=== PATIENT | male | born 1950 | race Caucasian/White ===

== ENCOUNTER 2018-03-04 11:24 | Inpatient (IN) | payer MEDICARE ==
[2018-03-04 11:37] VITALS: BMI 21.1
--- NOTE | 2018-03-04 12:19 | C.PDOC ---
History Of Present Illness 67 year old male sent to ED for symptomatic anemia by his primary care physician Dr. Ray. He states that his primary care physician did his blood work and found he had low hemoglobin. Patient states he is not feeling well for the past month with association of tiredness and poor appetite. He also reports he has been losing weight and has had several episodes of rectal bleeding. Denies nausea, vomiting, cough. Time Seen by Provider: 03/04/18 12:15 Chief Complaint (Nursing): Medical Clearance History Per: Patient History/Exam Limitations: no limitations Onset/Duration Of Symptoms: Days Current Symptoms Are (Timing): Still Present Recent travel outside of the [place]: No Past Medical History Reviewed: Historical Data, Nursing Documentation, Vital Signs Vital Signs: Last Vital Signs Temp 98.9 F 03/04/18 17:34 Pulse 91 H 03/04/18 17:34 Resp 20 03/04/18 17:34 BP 128/46 L 03/04/18 17:34 Pulse Ox 98 03/04/18 17:34 - Medical History PMH: HTN Surgical History: No Surg Hx Family History: States: No Known Family Hx - Social History Hx Alcohol Use: No Hx Substance Use: No - Immunization History Hx Tetanus Toxoid Vaccination: No Hx Influenza Vaccination: No Hx Pneumococcal Vaccination: No Review Of Systems Except As Marked, All Systems Reviewed And Found Negative. Constitutional: Positive for: Other (tired, poor appetite, losing weight) Respiratory: Negative for: Cough Gastrointestinal: Positive for: Hematochezia (several episodes of rectal bleeding). Negative for: Nausea, Vomiting Neurological: Negative for: Weakness, Numbness Physical Exam - Physical Exam Appears: Non-toxic Skin: Pale Head: Atraumatic, Normacephalic Neck: Supple Chest: Symmetrical Cardiovascular: Rhythm Regular Respiratory: Normal Breath Sounds Gastrointestinal/Abdominal: Soft, No Tenderness Rectal: Heme Positive Neurological/Psych: Oriented x3 Gait: Steady Additional Physical Exam Comments: significant anemic hemoglobin 6.7 ED Course And Treatment - Laboratory Results Result Diagrams: 03/04/18 12:39 03/04/18 12:39 O2 Sat by Pulse Oximetry: 100 (RA) Pulse Ox Interpretation: Normal Progress Note: EKG, labs, and blood for transfusion ordered. Spoke with Dr. Ray and he accepted him for admission. Patient given IV protonix. Blood transfusion started. 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 - Scribe Statement The provider has reviewed the documentation as recorded by the Scribe Howard López All medical record entries made by the Oscar were at my direction and personally dictated by me. I have reviewed the chart and agree that the record accurately reflects my personal performance of the history, physical exam, medical decision making, and the department course for this patient. I have also personally directed, reviewed, and agree with the discharge instructions and disposition. Decision To Admit - Pt Status Changed To: Hospital Disposition Of: Inpatient - Admit Certification Admit to Inpatient:: After my assessment, the patient will require hospitalization for at least two midnights. This is because of the severity of symptoms shown, intensity of services needed, and/or the medical risk in this patient being treated as an outpatient. - InPatient: Physician Admission Certification: I certify that this patient requires 2 or more midnights of care for the following reason:: GI bleed, symptomatic anemia, needs more than 2 days of hospitalization - . Bed Request Type: Regular Admitting Physician: Ryder Ray Patient Diagnosis: Symptomatic anemia, Lower GI bleeding
[2018-03-04 12:46] LABS: BASO % 0.4 % (0.0-2.0); LYMPH # 1.1 K/uL (1.0-4.3); LYMPH % 9.6 % (20.0-40.0); MEAN CORPUSCULAR HEMOGLOBIN 25.5 pg (27.0-31.0); MEAN CORPUSCULAR HGB CONC 32.2 g/dL (33.0-37.0); MEAN PLATELET VOLUME 7.1 fL (7.2-11.7); MONO # 0.8 K/uL (0.0-0.8); MONO % 6.8 % (0.0-10.0); NEUT # 9.4 K/uL (1.8-7.0); NEUT % 83.2 % (50.0-75.0); RBC 2.65 Mil/uL (4.40-5.90); RED CELL DISTRIBUTION WIDTH 18.2 % (11.5-14.5)
[2018-03-04 12:48] LABS: HEMOGLOBIN 6.7 g/dL (12.0-18.0); MEAN CELL VOLUME 79.1 fL (80.0-94.0); PLATELET COUNT 363 K/uL (130-400); WHITE BLOOD COUNT 11.3 K/uL (4.8-10.8)
[2018-03-04 12:55] LABS: INR 1.3; PROTHROMBIN TIME 13.9 SECONDS (9.7-12.2)
[2018-03-04 13:04] LABS: BANDS 2 % (0-2); LYMPHOCYTE 7 % (20-40); MONOCYTE 6 % (0-10); NEUTROPHIL 84 % (50-75); PLATELET ESTIMATE NORMAL (NORMAL); REACTIVE LYMPHOCYTES 1 % (0-0); TOTAL CELLS COUNTED 100
[2018-03-04 13:05] LABS: ANISOCYTOSIS MODERATE; HYPOCHROMIC MODERATE
[2018-03-04 13:12] LABS: SPERM URINE RARE /hpf; URINE BACTERIA RARE (<OCC); URINE BILIRUBIN NEGATIVE (NEGATIVE); URINE BLOOD 1+ (NEGATIVE); URINE CLARITY Hazy (Clear); URINE COLOR Yellow (YELLOW); URINE GLUCOSE (UA) NORMAL (Normal); URINE LEUKOCYTE ESTERASE NEG Leu/uL (Negative); URINE PROTEIN NEGATIVE (NEGATIVE); URINE UROBILINOGEN NORMAL mg/dL (0.2-1.0)
--- NOTE | 2018-03-04 13:22 | RAD ---
Date of service: 03/04/2018 PROCEDURE: CHEST RADIOGRAPH, 1 VIEW HISTORY: anemia COMPARISON: None available. FINDINGS: LUNGS: No acute pulmonary disease appreciated bilaterally. PLEURA: No pneumothorax or pleural fluid seen. CARDIOVASCULAR: Mild cardiomegaly. No pulmonary vascular congestion. OSSEOUS STRUCTURES: No significant abnormalities. VISUALIZED UPPER ABDOMEN: Normal. OTHER FINDINGS: None. IMPRESSION: Mild cardiomegaly without pulmonary vascular congestion. No acute pulmonary disease appreciated bilaterally.
[2018-03-04 13:57] LABS: ALB/GLOB RATIO 0.8 (1.0-2.1); ALT/SGPT 58 U/L (21-72); AST/SGOT 64 U/L (17-59); BLOOD UREA NITROGEN 17 mg/dL (9-20); CALCIUM 8.3 mg/dl (8.6-10.4); GFR AFRICAN-AMERICAN > 60; GFR NON-AFRICAN AMERICAN 55
--- NOTE | 2018-03-04 16:53 | CP.PCM.HP ---
History of Present Illness - History of Present Illness History of Present Illness: 67 years old Cam[place] male was sent to the ED by us because a recent blood test revealed a Hgb: 6.0. The patient has been complaining of a painless rectal bleeding on and off for the past one month, with poor appetite, loss of weight( about 28 lbs for the last one month), generalized weakness. He denies any vomiting blood, any abdominal pain. He is known to have a hypertension, a hypercholesterolemia, an elevated PSA ( seen by Dr Randolph ) and a gout. His last Indomethacin ingestion was 3 years ago. He quit cigarette smoking 15 years ago, and denies abusing alcohol.His medications considted of Amlodipine 10 mg PO qd, Losartan 100mg PO qd, Simvastatin 10 mg PO qd, Ferrous sulfate 325 mg PO TID. His family medical history is unremarkable. He has a left inguinal hernia repair many years ago. He has no known drug allergy. Present on Admission - Present on Admission Any Indicators Present on Admission: No Review of Systems - Constitutional Constitutional: Anorexia, Weight Loss, Weakness - Gastrointestinal Gastrointestinal: Hematochezia - Neurological Neurological: Dizziness - Psychiatric Psychiatric: Anxiety Past Patient History - Past Medical History & Family History Past Medical History?: Yes - Past Social History Smoking Status: Former Smoker Alcohol: None Home Situation {Lives}: With Family Domestic Violence: Negative - CARDIAC Hx Hypercholesterolemia: Yes Hx Hypertension: Yes - HEENT Hx HEENT Problems: Yes 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 - PSYCHIATRIC Hx Substance Use: No - SURGICAL HISTORY Hx Surgeries: Yes Hx Herniorrhaphy: Yes (left) - ANESTHESIA Hx Anesthesia: Yes Hx Anesthesia Reactions: No Meds Allergies/Adverse Reactions: Allergies Allergy/AdvReac Type Severity Reaction Status Date / Time aspirin Allergy Verified 03/04/18 11:37 Physical Exam - Constitutional Appears: In Acute Distress, Chronically Ill - Head Exam Head Exam: NORMAL INSPECTION - Eye Exam Pupil Exam: NORMAL ACCOMODATION Additional comments: Pale conjunctiva. - ENT Exam ENT Exam: Normal Exam - Neck Exam Neck exam: Positive for: Normal Inspection - Respiratory Exam Respiratory Exam: Clear to Auscultation Bilateral, NORMAL BREATHING PATTERN - Cardiovascular Exam Cardiovascular Exam: REGULAR RHYTHM - GI/Abdominal Exam GI & Abdominal Exam: Normal Bowel Sounds, Soft - Rectal Exam Rectal Exam: Deferred - Extremities Exam Extremities exam: Positive for: normal inspection - Back Exam Back exam: NORMAL INSPECTION - Neurological Exam Neurological exam: Alert, CN II-XII Intact, Oriented x3 - Psychiatric Exam Psychiatric exam: Anxious - Skin Skin Exam: Dry, Intact, Normal Color, Warm Results - Vital Signs Recent Vital Signs: Last Vital Signs Temp 99.1 F 03/04/18 16:00 Pulse 94 H 03/04/18 16:00 Resp 19 03/04/18 16:00 BP 122/44 L 03/04/18 16:00 Pulse Ox 100 03/04/18 16:08 - Labs Result Diagrams: 03/04/18 12:39 03/04/18 12:39 Labs: Laboratory Results - last 24 hr 03/04/18 03/04/18 03/04/18 12:39 12:39 12:39 WBC 11.3 H D RBC 2.65 L Hgb 6.7 L D Hct 21.0 L MCV 79.1 L D MCH 25.5 L MCHC 32.2 L RDW 18.2 H Plt Count 363 D MPV 7.1 L Neut % (Auto) 83.2 H Lymph % (Auto) 9.6 L [place] % (Auto) 6.8 Eos % (Auto) 0.0 Baso % (Auto) 0.4 Neut # (Auto) 9.4 H Lymph # (Auto) 1.1 [place] # (Auto) 0.8 Eos # (Auto) 0.0 Baso # (Auto) 0.0 Neutrophils % (Manual) 84 H Band Neutrophils % 2 Lymphocytes % (Manual) 7 L Reactive Lymphs % 1 H Monocytes % (Manual) 6 Platelet Estimate Normal Hypochromasia (manual) Moderate Anisocytosis (manual) Moderate PT 13.9 H INR 1.3 APTT 30 Sodium Potassium Chloride Carbon Dioxide Anion Gap BUN Creatinine Est GFR ( Amer) Est GFR (Non-Af Amer) Random Glucose Calcium Total Bilirubin AST ALT Alkaline Phosphatase Total Protein Albumin Globulin Albumin/Globulin Ratio Urine Color Urine Clarity Urine pH Ur Specific [place] Urine Protein Urine Glucose (UA) Urine Ketones Urine Blood Urine Nitrate Urine Bilirubin Urine Urobilinogen Ur Leukocyte Esterase Urine WBC (Auto) Urine RBC (Auto) Urine Bacteria Urine Sperm (Auto) Stool Occult Blood Positive H Blood Type Antibody Screen 03/04/18 03/04/18 03/04/18 12:39 12:39 12:53 WBC RBC Hgb Hct MCV MCH MCHC RDW Plt Count MPV Neut % (Auto) Lymph % (Auto) [place] % (Auto) Eos % (Auto) Baso % (Auto) Neut # (Auto) Lymph # (Auto) [place] # (Auto) Eos # (Auto) Baso # (Auto) Neutrophils % (Manual) Band Neutrophils % Lymphocytes % (Manual) Reactive Lymphs % Monocytes % (Manual) Platelet Estimate Hypochromasia (manual) Anisocytosis (manual) PT INR APTT Sodium 127 L Potassium 4.0 Chloride 95 L Carbon Dioxide 18 L Anion Gap 18 BUN 17 Creatinine 1.3 Est GFR ( Amer) > 60 Est GFR (Non-Af Amer) 55 Random Glucose 151 H Calcium 8.3 L Total Bilirubin 0.5 AST 64 H ALT 58 Alkaline Phosphatase 128 H Total Protein 7.1 Albumin 3.0 L D Globulin 4.1 H Albumin/Globulin Ratio 0.8 L Urine Color Yellow Urine Clarity Hazy Urine pH 5.0 Ur Specific [place] 1.011 Urine Protein Negative Urine Glucose (UA) Normal Urine Ketones Negative Urine Blood 1+ H Urine Nitrate Negative Urine Bilirubin Negative Urine Urobilinogen Normal Ur Leukocyte Esterase Neg Urine WBC (Auto) 7 H Urine RBC (Auto) 2 Urine Bacteria Rare Urine Sperm (Auto) Rare H Stool Occult Blood Blood Type O POSITIVE Antibody Screen Negative Assessment & Plan (1) Lower GI bleeding Assessment and Plan: For a colonoscopy by Dr Perez. Status: Acute (2) Symptomatic anemia Assessment and Plan: Blood transfusion to a hemoglobin about 9-10. Status: Acute (3) Hypertension Status: Chronic Decision To Admit - Pt Status Changed To: Hospital Disposition Of: Inpatient - Admit Certification Admit to Inpatient:: After my assessment, the patient will require hospitalization for at least two midnights. This is because of the severity of symptoms shown, intensity of services needed, and/or the medical risk in this patient being treated as an outpatient. - InPatient: Physician Admission Certification:: After my assessments, the patient requires hospitalization for at least 2 midnights. - . Bed Request Type: Regular Admitting Physician: Ryder Ray
--- NOTE | 2018-03-04 17:43 | CP.PCM.CON ---
History of Present Illness - History of Present Illness History of Present Illness: This is a 67 year ld man with anemia. Patient has complained of weakness for the past two months. He was diagnosed with GERD earlier in the year and was treated with omeprazole with good results. He also reports a weight loss of 10 pounds in the past month. Starting four months ago, be noted blood in the bowel movements every day. He denies having diarrhea. He denies having nausea, vomiting,anorexia and dysphagia. Recent HGB on 02/03/2018 was 7.6, HCT 25.4. Repeat blood tests by Dr. Ray showed that the HGB dropped to 6.0, and the patient was instructed to go to the ER. In the ER, the HGB was 6.7, and he was admitted.. Review of Systems - Constitutional Constitutional: Anorexia, Fatigue, Weight Loss, Weakness - Respiratory Respiratory: absent: Cough - Gastrointestinal Gastrointestinal: Hematochezia. absent: Abdominal Pain, Constipation, Diarrhea , Dysphagia, Heartburn, Nausea, Vomiting - Neurological Neurological: Dizziness. 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 - PSYCHIATRIC Hx Substance Use: No - SURGICAL HISTORY Hx Surgeries: Yes Hx Herniorrhaphy: Yes (left) - ANESTHESIA Hx Anesthesia: Yes Hx Anesthesia Reactions: No Meds Allergies/Adverse Reactions: Allergies Allergy/AdvReac Type Severity Reaction Status Date / Time aspirin Allergy Verified 03/04/18 11:37 - Medications Medications: Current Medications Amlodipine Besylate (Norvasc) 10 mg PO DAILY [facility] Losartan Potassium (Cozaar) 100 mg PO DAILY [facility] Pantoprazole Sodium (Protonix Ec Tab) 40 mg PO DAILY [facility] Physical Exam - Constitutional Appears: No Acute Distress - Head Exam Head Exam: ATRAUMATIC - Eye Exam Eye Exam: EOMI, PERRL - Neck Exam Neck exam: Negative for: Lymphadenopathy, Thyromegaly - Respiratory Exam Respiratory Exam: NORMAL BREATHING PATTERN. absent: Rales, Rhonchi, Wheezes - Cardiovascular Exam Cardiovascular Exam: REGULAR RHYTHM, +S1, +S2. absent: Gallop, Rubs - GI/Abdominal Exam GI & Abdominal Exam: Normal Bowel Sounds, Soft. absent: Mass, Organomegaly, Tenderness - Rectal Exam Rectal Exam: Deferred - Extremities Exam Extremities exam: Negative for: calf tenderness, pedal edema Results - Vital Signs Recent Vital Signs: Last Vital Signs Temp 98.9 F 03/04/18 17:34 Pulse 91 H 03/04/18 17:34 Resp 20 03/04/18 17:34 BP 128/46 L 03/04/18 17:34 Pulse Ox 98 03/04/18 17:34 - Labs Result Diagrams: 03/04/18 12:39 03/04/18 12:39 Labs: Laboratory Results - last 24 hr 03/04/18 03/04/18 03/04/18 12:39 12:39 12:39 WBC 11.3 H D RBC 2.65 L Hgb 6.7 L D Hct 21.0 L MCV 79.1 L D MCH 25.5 L MCHC 32.2 L RDW 18.2 H Plt Count 363 D MPV 7.1 L Neut % (Auto) 83.2 H Lymph % (Auto) 9.6 L [place] % (Auto) 6.8 Eos % (Auto) 0.0 Baso % (Auto) 0.4 Neut # (Auto) 9.4 H Lymph # (Auto) 1.1 [place] # (Auto) 0.8 Eos # (Auto) 0.0 Baso # (Auto) 0.0 Neutrophils % (Manual) 84 H Band Neutrophils % 2 Lymphocytes % (Manual) 7 L Reactive Lymphs % 1 H Monocytes % (Manual) 6 Platelet Estimate Normal Hypochromasia (manual) Moderate Anisocytosis (manual) Moderate PT 13.9 H INR 1.3 APTT 30 Sodium Potassium Chloride Carbon Dioxide Anion Gap BUN Creatinine Est GFR ( Amer) Est GFR (Non-Af Amer) Random Glucose Calcium Total Bilirubin AST ALT Alkaline Phosphatase Total Protein Albumin Globulin Albumin/Globulin Ratio Urine Color Urine Clarity Urine pH Ur Specific [place] Urine Protein Urine Glucose (UA) Urine Ketones Urine Blood Urine Nitrate Urine Bilirubin Urine Urobilinogen Ur Leukocyte Esterase Urine WBC (Auto) Urine RBC (Auto) Urine Bacteria Urine Sperm (Auto) Stool Occult Blood Positive H Blood Type Antibody Screen 03/04/18 03/04/18 03/04/18 12:39 12:39 12:53 WBC RBC Hgb Hct MCV MCH MCHC RDW Plt Count MPV Neut % (Auto) Lymph % (Auto) [place] % (Auto) Eos % (Auto) Baso % (Auto) Neut # (Auto) Lymph # (Auto) [place] # (Auto) Eos # (Auto) Baso # (Auto) Neutrophils % (Manual) Band Neutrophils % Lymphocytes % (Manual) Reactive Lymphs % Monocytes % (Manual) Platelet Estimate Hypochromasia (manual) Anisocytosis (manual) PT INR APTT Sodium 127 L Potassium 4.0 Chloride 95 L Carbon Dioxide 18 L Anion Gap 18 BUN 17 Creatinine 1.3 Est GFR ( Amer) > 60 Est GFR (Non-Af Amer) 55 Random Glucose 151 H Calcium 8.3 L Total Bilirubin 0.5 AST 64 H ALT 58 Alkaline Phosphatase 128 H Total Protein 7.1 Albumin 3.0 L D Globulin 4.1 H Albumin/Globulin Ratio 0.8 L Urine Color Yellow Urine Clarity Hazy Urine pH 5.0 Ur Specific [place] 1.011 Urine Protein Negative Urine Glucose (UA) Normal Urine Ketones Negative Urine Blood 1+ H Urine Nitrate Negative Urine Bilirubin Negative Urine Urobilinogen Normal Ur Leukocyte Esterase Neg Urine WBC (Auto) 7 H Urine RBC (Auto) 2 Urine Bacteria Rare Urine Sperm (Auto) Rare H Stool Occult Blood Blood Type O POSITIVE Antibody Screen Negative Assessment & Plan (1) Symptomatic anemia Assessment and Plan: Anemia is probably due to iron deficiency, in turn related to chronic rectal bleeding. Will check iron, B12 and folate levels. Will prep for colonoscopy and will schedule EGD and colonoscopy for tomorrow. Status: Acute
[2018-03-04] MEDS ORDERED: Peg-Electrolyte Oral Soln 4L (Golytely) PO ONE (18:00)
[2018-03-04 20:33] LABS: IRON 29 ug/dL (49-181)
[2018-03-04 20:42] LABS: % IRON SATURATION 13 (20-55); TOTAL IRON BINDING CAPACITY 233 ug/dL (250-450)
[2018-03-04 21:07] LABS: FERRITIN 23.7 ng/mL
[2018-03-04 21:38] LABS: FOLATE 10.5 ng/mL
[2018-03-05] MEDS ORDERED: Peg-Electrolyte Oral Soln 4L (Golytely) PO ONE (06:00)
[2018-03-05 07:44] LABS: BASO % 0.3 % (0.0-2.0); HEMOGLOBIN 7.5 g/dL (12.0-18.0); LYMPH # 1.1 K/uL (1.0-4.3); LYMPH % 10.3 % (20.0-40.0); MEAN CELL VOLUME 78.6 fL (80.0-94.0); MEAN CORPUSCULAR HEMOGLOBIN 25.6 pg (27.0-31.0); MEAN CORPUSCULAR HGB CONC 32.5 g/dL (33.0-37.0); MEAN PLATELET VOLUME 6.9 fL (7.2-11.7); MONO # 0.9 K/uL (0.0-0.8); NEUT # 8.8 K/uL (1.8-7.0); NEUT % 81.4 % (50.0-75.0); RBC 2.93 Mil/uL (4.40-5.90); RED CELL DISTRIBUTION WIDTH 17.9 % (11.5-14.5); WHITE BLOOD COUNT 10.8 K/uL (4.8-10.8)
[2018-03-05 08:12] LABS: ALB/GLOB RATIO 0.7 (1.0-2.1); ALBUMIN 2.7 g/dL (3.5-5.0); ALT/SGPT 54 U/L (21-72); AST/SGOT 68 U/L (17-59); BLOOD UREA NITROGEN 17 mg/dL (9-20); CALCIUM 8.1 mg/dl (8.6-10.4); GFR AFRICAN-AMERICAN > 60; GFR NON-AFRICAN AMERICAN > 60
[2018-03-05] MEDS: Pantoprazole 40 mg EC Tab PO SCH (09:50)
[2018-03-05] MEDS ORDERED: Etomidate 20 mg/10ml Inj IV ONE (14:44)
[2018-03-05] MEDS ORDERED: Propofol 10 mg/ml Inj (20 ML) ONE (14:45)
[2018-03-05] MEDS ORDERED: Lactated Ringer's 1,000 ML IV ONE (14:55)
--- NOTE | 2018-03-05 15:37 | CARD ---
APPROVED REPORT Date of service: 03/04/2018 EKG Measurement Heart [id number] <Conclusion> Normal sinus rhythm Nonspecific ST abnormality Abnormal ECG
[2018-03-05] MEDS ORDERED: Sodium Chloride 0.9% 500 ML IV ONE (15:53)
--- NOTE | 2018-03-05 19:35 | CP.PCM.CON ---
History of Present Illness - History of Present Illness History of Present Illness: 67 years old [place] male was sent to the ED by PMD, because a recent blood test revealed a Hgb: 6.0. The patient has been complaining of a painless rectal bleeding on and off for the past one month, with poor appetite, loss of weight( about 28 lbs for the last one month), generalized weakness. He denies any vomiting blood, any abdominal pain. The patient reports getting stool for OB tested at his work place, annually, which was normal, but stopped around 5 years ago, after he retired.He is known to have a hypertension, a hypercholesterolemia, an elevated PSA, being followed by , and gout. His last Indomethacin ingestion was 3 years ago. He quit cigarette smoking 15 years ago, and denies abusing alcohol.His medications are Amlodipine 10 mg PO qd, Losartan 100mg PO qd, Simvastatin 10 mg PO qd, Ferrous sulfate 325 mg PO TID. His family medical history is unremarkable. He has a left inguinal hernia repair many years ago. Oncology consult called after colonoscopy revealed a rectal mass, biopsy pending. 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 - GENITOURINARY/GYNECOLOGICAL Hx Genitourinary Disorders: No - PSYCHIATRIC Hx Substance Use: No - SURGICAL HISTORY Hx Surgeries: Yes Hx Herniorrhaphy: Yes (left) - ANESTHESIA Hx Anesthesia: Yes Hx Anesthesia Reactions: No Meds Allergies/Adverse Reactions: Allergies Allergy/AdvReac Type Severity Reaction Status Date / Time aspirin Allergy Verified 03/04/18 11:37 - Medications Medications: Current Medications Amlodipine Besylate (Norvasc) 10 mg PO DAILY ANIYAH Last Admin: 03/05/18 09:50 Dose: 10 mg Ferric Sodium Gluconate Complex (Ferrlecit) 125 mg IVPB DAILY [facility] Stop: 03/14/18 10:01 Losartan Potassium (Cozaar) 100 mg PO DAILY [facility] Last Admin: 03/05/18 09:50 Dose: 100 mg Pantoprazole Sodium (Protonix Ec Tab) 40 mg PO DAILY [facility] Last Admin: 03/05/18 09:50 Dose: 40 mg Pneumococcal Polyvalent Vaccine (Pneumovax 23 Vaccine) 0.5 ml IM .ONCE ONE Stop: 03/06/18 10:01 Results - Vital Signs Recent Vital Signs: Last Vital Signs Temp 97.9 F 03/05/18 18:33 Pulse 90 03/05/18 18:33 Resp 20 03/05/18 18:33 BP 120/44 L 03/05/18 18:33 Pulse Ox 97 03/05/18 16:25 - Labs Result Diagrams: 03/05/18 07:34 03/05/18 07:34 Labs: Laboratory Results - last 24 hr 03/04/18 03/04/18 03/04/18 12:39 20:00 20:00 WBC RBC Hgb Hct MCV MCH MCHC RDW Plt Count MPV Neut % (Auto) Lymph % (Auto) [place] % (Auto) Eos % (Auto) Baso % (Auto) Neut # (Auto) Lymph # (Auto) [place] # (Auto) Eos # (Auto) Baso # (Auto) Retic Count 2.7 H Sodium Potassium Chloride Carbon Dioxide Anion Gap BUN Creatinine Est GFR ( Amer) Est GFR (Non-Af Amer) Random Glucose Calcium Iron 29 L TIBC 233 L % Saturation 13 L Ferritin Total Bilirubin AST ALT Alkaline Phosphatase Total Protein Albumin Globulin Albumin/Globulin Ratio Carcinoembryonic Ag Prostate Specific Ag Vitamin B12 Folate Blood Type O POSITIVE Antibody Screen Negative 03/04/18 03/05/18 03/05/18 20:00 07:34 07:34 WBC 10.8 RBC 2.93 L Hgb 7.5 L Hct 23.0 L MCV 78.6 L MCH 25.6 L MCHC 32.5 L RDW 17.9 H Plt Count 325 MPV 6.9 L Neut % (Auto) 81.4 H Lymph % (Auto) 10.3 L [place] % (Auto) 8.0 Eos % (Auto) 0.0 Baso % (Auto) 0.3 Neut # (Auto) 8.8 H Lymph # (Auto) 1.1 [place] # (Auto) 0.9 H Eos # (Auto) 0.0 Baso # (Auto) 0.0 Retic Count Sodium 131 L Potassium 4.1 Chloride 100 Carbon Dioxide 22 Anion Gap 13 BUN 17 Creatinine 1.2 Est GFR ( Amer) > 60 Est GFR (Non-Af Amer) > 60 Random Glucose 122 H Calcium 8.1 L Iron TIBC % Saturation Ferritin 23.7 Total Bilirubin 0.6 AST 68 H ALT 54 Alkaline Phosphatase 115 Total Protein 6.3 Albumin 2.7 L Globulin 3.6 Albumin/Globulin Ratio 0.7 L Carcinoembryonic Ag 11.8 H Prostate Specific Ag 5.56 H Vitamin B12 464 Folate 10.5 Blood Type Antibody Screen Assessment & Plan (1) Mass in rectum Assessment and Plan: 67 yo man with rectal mass, iron deficiency anemia, elevated CEA level, cocern for rectal neoplasm. Will get CAT scans, above discussed with the patient and the family. Status: Acute
--- NOTE | 2018-03-05 23:28 | CP.PCM.PN ---
Subjective - Date & Time of Evaluation Date of Evaluation: 03/05/18 Time of Evaluation: 20:00 - Subjective Subjective: Colonoscopy revealed a mass of the rectum. Biopsy taken. CEA elevated. Patient being evaluated by Dr Rivera. Ct scan of the abdomen and pelvis ordered. Objective - Vital Signs/Intake and Output Vital Signs (last 24 hours): Temp Pulse Resp BP Pulse Ox 99.1 F 80 18 119/42 L 96 03/05/18 22:12 03/05/18 22:12 03/05/18 22:12 03/05/18 22:12 03/05/18 22:12 Intake and Output: 03/05/18 03/06/18 18:59 06:59 Intake Total 1325 905 Balance 1325 905 - Medications Medications: Current Medications Amlodipine Besylate (Norvasc) 10 mg PO DAILY [facility] Last Admin: 03/05/18 09:50 Dose: 10 mg Ferric Sodium Gluconate Complex (Ferrlecit) 125 mg IVPB DAILY [facility] Stop: 03/14/18 10:01 Losartan Potassium (Cozaar) 100 mg PO DAILY [facility] Last Admin: 03/05/18 09:50 Dose: 100 mg Pantoprazole Sodium (Protonix Ec Tab) 40 mg PO DAILY [facility] Last Admin: 03/05/18 09:50 Dose: 40 mg Pneumococcal Polyvalent Vaccine (Pneumovax 23 Vaccine) 0.5 ml IM .ONCE ONE Stop: 03/06/18 10:01 - Labs Labs: 03/05/18 07:34 03/05/18 07:34 PT 13.9 SECONDS (9.7-12.2) H 03/04/18 12:39 INR 1.3 03/04/18 12:39 APTT 30 SECONDS (21-34) 03/04/18 12:39 - Constitutional Appears: No Acute Distress, Chronically Ill - Head Exam Head Exam: NORMOCEPHALIC - Eye Exam Eye Exam: Normal appearance Pupil Exam: NORMAL ACCOMODATION - ENT Exam ENT Exam: Normal Exam - Neck Exam Neck Exam: Normal Inspection - Respiratory Exam Respiratory Exam: Clear to Ausculation Bilateral - Cardiovascular Exam Cardiovascular Exam: REGULAR RHYTHM - GI/Abdominal Exam GI & Abdominal Exam: Soft, Normal Bowel Sounds - Rectal Exam Rectal Exam: Deferred - Exam Exam: NORMAL INSPECTION - Extremities Exam Extremities Exam: Normal Inspection - Back Exam Back Exam: NORMAL INSPECTION - Neurological Exam Neurological Exam: Alert, Awake, Oriented x3 - Psychiatric Exam Psychiatric exam: Anxious - Skin Skin Exam: Dry, Intact, Warm Assessment and Plan (1) Lower GI bleeding Assessment & Plan: Colonoscopy reveals a rectal mass. Awaiting biopsy result. Ct scan of the abdomen and pelvis ordered. Status: Acute (2) Symptomatic anemia Assessment & Plan: PRC transfusion. Status: Acute (3) Hypertension Status: Chronic
[2018-03-05 23:57] VITALS: RESP 20
[2018-03-06 07:40] LABS: MCH 25.5 pg (27.0-33.0); MCV 84.2 fL (80.0-100.0)
[2018-03-06] MEDS ORDERED: Iohexol 240 (50 ml) PO ONE (08:00)
[2018-03-06 08:06] LABS: BASO # 0.1 K/uL (0.0-0.2); BASO % 0.7 % (0.0-2.0); LYMPH # 1.2 K/uL (1.0-4.3); MEAN CORPUSCULAR HEMOGLOBIN 26.5 pg (27.0-31.0); MEAN CORPUSCULAR HGB CONC 32.8 g/dL (33.0-37.0); MEAN PLATELET VOLUME 7.3 fL (7.2-11.7); MONO # 0.8 K/uL (0.0-0.8); MONO % 5.9 % (0.0-10.0); NEUT % 84.4 % (50.0-75.0); NRBC % 0.1 % (0.0-2.0); PLATELET COUNT 288 K/uL (130-400); RBC 3.75 Mil/uL (4.40-5.90); RED CELL DISTRIBUTION WIDTH 17.8 % (11.5-14.5)
[2018-03-06 08:14] LABS: HEMOGLOBIN 9.9 g/dL (12.0-18.0); MEAN CELL VOLUME 80.7 fL (80.0-94.0)
[2018-03-06 08:37] LABS: ALB/GLOB RATIO 0.8 (1.0-2.1); ALBUMIN 2.7 g/dL (3.5-5.0); ALT/SGPT 43 U/L (21-72); AST/SGOT 40 U/L (17-59); BLOOD UREA NITROGEN 15 mg/dL (9-20); CALCIUM 8.1 mg/dl (8.6-10.4); GFR AFRICAN-AMERICAN > 60; GFR NON-AFRICAN AMERICAN 55
[2018-03-06 08:48] LABS: ANISOCYTOSIS SLIGHT; BANDS 5 % (0-2); HYPOCHROMIC SLIGHT; LYMPHOCYTE 8 % (20-40); MONOCYTE 7 % (0-10); NEUTROPHIL 80 % (50-75); OVALOCYTES SLIGHT; PLATELET ESTIMATE NORMAL (NORMAL); TOTAL CELLS COUNTED 100; TOXIC GRANULATION PRESENT
[2018-03-06] MEDS: Pantoprazole 40 mg EC Tab PO SCH (09:20)
[2018-03-06] MEDS: Ferric Sodium Gluconat Complex 62.5 mg/5 ml Vial IVPB SCH (09:20)
[2018-03-06] MEDS ORDERED: Pneumococcal 23-Valent Vaccine IM ONE (10:00)
[2018-03-06] MEDS ORDERED: Iodixanol 320 MG/ML 100 ML BOTTLE IV ONE (11:48)
--- NOTE | 2018-03-06 15:38 | CT ---
Date of service: 03/06/2018 PROCEDURE: CT Chest, Abdomen and Pelvis with intravenous contrast HISTORY: anemia, rectal mass, r/o mets COMPARISON: CT abdomen and pelvis August 05 2015 -noncontrast. TECHNIQUE: IV dose administered: 100 mL of Visipaque 320 ; Omnipaque 240 Radiation dose: Total exam DLP = 561 mGy-cm. This CT exam was performed using one or more of the following dose reduction techniques: Automated exposure control, adjustment of the mA and/or kV according to patient size, and/or use of iterative reconstruction technique. FINDINGS: CT CHEST WITH CONTRAST: LUNGS: Left posterior tendon lower lobe subpleural minimal thickening trace similar findings on the right also noted. No nodule, mass or consolidation. A bilobed versus 2 contiguous smaller nodules border the right major fissure at the spencer level in the superior segment of the right lower lobe (axis series 4, image 40). The larger part of this bilobed appearance is 4 mm, the smaller nodular component may even represent even a coursing vessel seen on end. Two distinct entities, in close proximity with each other is favored over a single bilobed perifissural nodule. Given its proximity with the pleural surface-inflammatory nodule or even a perifissural pulmonary lymphatic nodule is a consideration. Given history of rectal mass - metastatic lesion is not excluded - a short-term follow-up imaging study to ensure stability and or document resolution is recommended. No other nodules noted MEDIASTINUM: Unremarkable. Normal caliber aorta and pulmonary arterial trunk. No aortic dissection. Normal size heart. LYMPH NODES: Unremarkable. PLEURA: . No pneumothorax. No pleural fluid. Minimal and mild posterior pleural thickening as referenced in the lung section BONES: Unremarkable. OTHER FINDINGS: None. CT ABDOMEN AND PELVIS: LIVER: Prior study was noncontrast enhanced comparison has resolved is problematic. There are at least 3 hypodensities individually these are approximately 2 mm in size in the right hepatic lobe at the dome (current axial series 6, image 33). These are not seen on the prior study this level. On current axial series 6, image 44, an approximately 6 mm hypodensity in the posterior segment right hepatic lobe is present and similar in appearance with 08/05/2015 image of it. This length of stability supports benign etiology Tiny left hepatic lobe hypodensities -approximately 1 mm each -2 are perceived on axial series 6, image 39 in these are difficult to see on the prior non contrast enhanced study the current conspicuity could be due to the postcontrast enhanced status. However the chronicity is unknown. Another hypodensity 1 mm anteriorly is anterior to the left portal vein branch on current axial series 6, image 42 is seen and on the same image of further left lateral hepatic lobe hypodensity 2 mm in size is noted both of these entities are not seen with certainty on the prior study again the conspicuity could be attributed to postcontrast enhanced status. Again their chronicity is unknown. On current axial series 6, image 57 there are 2 1 mm hypodensity seen-not appreciated such on the prior study their chronicity is unknown. The inferior right hepatic lobe 6 mm hypodensity on current axial series 6, image 71 is stable in appearance since 2016 compatible with benign etiology. No gross ductal dilatation. GALLBLADDER AND BILE DUCTS: Unremarkable. PANCREAS: Unremarkable. No gross lesion or ductal dilatation. SPLEEN: Unremarkable. ADRENALS: The mild nodular prominence to the left adrenal limbs is similar to 2016 compatible with benign etiology. No interval worrisome adrenal changes suggested. This minimal nodular prominence to an inferior right adrenal limb -similar since 2016 compatible with benign etiology. KIDNEYS AND URETERS: Unremarkable. No hydronephrosis. No suspicious mass appreciated VASCULATURE: Vascular calcifications present. . No aortic aneurysm. BOWEL: No bowel obstruction. However there is interval thickening of the rectal wall circumferential compared the prior study neoplastic as well as inflammatory etiologies are compatible with this. Correlation with any biopsy here is recommended Some trace stranding of the surrounding fat noted. APPENDIX: Normal appendix. PERITONEUM: Trace amount of fluid borders the inferolateral this is an interval change. . No free air. LYMPH NODES: Unremarkable. No enlarged lymph nodes. BLADDER: Moderate distension with circumferential bladder wall thickening to before. Chronic cystitis is 1 consideration. REPRODUCTIVE: Prominent prostate similar and or slightly increased since the prior exam. Correlate with a PSA and digital exam BONES: No acute fracture. OTHER FINDINGS: None. IMPRESSION: Interval circumferential rectal wall mural thickening - history states rectal mass -correlate clinically with any tissue sampling performed. Rectal neoplasia versus inflammatory changes are compatible with this. No suspect lymphadenopathy appreciated Small amount of ascites bordering the liver Enlarged prostate- correlate with PSA. Bladder wall thickening can similar in appearance can be seen with hypertrophy. Chronic cystitis another consideration. Other etiologies not excluded. No eccentric mural masses appreciated The right perifissural sub cm nodules-bilobed in appearance are indeterminate- benign etiologies are favored. Consider follow-up CT chest imaging in 3- 6 months to reassess Bilateral tiny sub cm hepatic hypodense lesions all of which are not identified on 2016 images (in non IV contrast enhanced image). Chronicity unknown. Recommend short-term follow-up imaging assess their stability with contrast enhancement. The largest ones noted on the current study are seen and stable as such dating back to 2016. Continued surveillance recommended. Stable since 2016 benign-appearing adrenal nodular hyperplasia status.
--- NOTE | 2018-03-06 18:45 | CP.PCM.PN ---
Subjective - Date & Time of Evaluation Date of Evaluation: 03/06/18 Time of Evaluation: 18:41 - Subjective Subjective: The patient reports feeling slightly better, ambulatory, fair appetite. Have discussed report of rectal biopsy and CAT scans with the patient and daughter. Plan- CAT/PET scan as outpatient, may need rectal US or pelvic MRI if local staging not adequate with the PET scan. Most likely, will need local RT prior to surgery. Objective - Vital Signs/Intake and Output Vital Signs (last 24 hours): Temp Pulse Resp BP Pulse Ox 98 F 96 H 20 134/53 L 97 03/06/18 15:50 03/06/18 15:50 03/06/18 15:50 03/06/18 15:50 03/06/18 15:50 Intake and Output: 03/06/18 03/06/18 06:59 18:59 Intake Total 905 1600 Balance 905 1600 - Medications Medications: Current Medications Amlodipine Besylate (Norvasc) 10 mg PO DAILY [facility] Last Admin: 03/06/18 09:20 Dose: 10 mg Ferric Sodium Gluconate Complex (Ferrlecit) 125 mg IVPB DAILY [facility] Stop: 03/14/18 10:01 Last Admin: 03/06/18 09:20 Dose: 125 mg Losartan Potassium (Cozaar) 100 mg PO DAILY [facility] Last Admin: 03/06/18 09:20 Dose: 100 mg Pantoprazole Sodium (Protonix Ec Tab) 40 mg PO DAILY [facility] Last Admin: 03/06/18 09:20 Dose: 40 mg - Labs Labs: 03/06/18 07:48 03/06/18 07:48 PT 13.9 SECONDS (9.7-12.2) H 03/04/18 12:39 INR 1.3 03/04/18 12:39 APTT 30 SECONDS (21-34) 03/04/18 12:39 Assessment and Plan (1) Mass in rectum Status: Acute
[2018-03-07 07:44] LABS: BASO % 0.4 % (0.0-2.0); HEMOGLOBIN 9.4 g/dL (12.0-18.0); LYMPH # 1.1 K/uL (1.0-4.3); MEAN CELL VOLUME 80.8 fL (80.0-94.0); MEAN CORPUSCULAR HEMOGLOBIN 27.3 pg (27.0-31.0); MEAN CORPUSCULAR HGB CONC 33.7 g/dL (33.0-37.0); MONO # 0.8 K/uL (0.0-0.8); NEUT # 9.2 K/uL (1.8-7.0); NEUT % 82.6 % (50.0-75.0); RBC 3.46 Mil/uL (4.40-5.90); RED CELL DISTRIBUTION WIDTH 17.4 % (11.5-14.5); WHITE BLOOD COUNT 11.2 K/uL (4.8-10.8)
[2018-03-07 07:53] LABS: ALB/GLOB RATIO 0.8 (1.0-2.1); ALBUMIN 2.4 g/dL (3.5-5.0); ALT/SGPT 33 U/L (21-72); AST/SGOT 19 U/L (17-59); BLOOD UREA NITROGEN 10 mg/dL (9-20); GFR AFRICAN-AMERICAN > 60; GFR NON-AFRICAN AMERICAN > 60
--- NOTE | 2018-03-07 07:54 | CP.PCM.PN ---
Subjective - Date & Time of Evaluation Date of Evaluation: 03/07/18 Time of Evaluation: 07:51 - Subjective Subjective: Patient denies having nausea, vomiting, abdominal pain. HGB is up to 9.4. Objective - Vital Signs/Intake and Output Vital Signs (last 24 hours): Temp Pulse Resp BP Pulse Ox 102.7 F H 97 H 20 114/46 L 96 03/06/18 23:10 03/07/18 07:00 03/06/18 23:10 03/06/18 23:10 03/06/18 23:10 - Medications Medications: Current Medications Amlodipine Besylate (Norvasc) 10 mg PO DAILY [facility] Last Admin: 03/06/18 09:20 Dose: 10 mg Ferric Sodium Gluconate Complex (Ferrlecit) 125 mg IVPB DAILY [facility] Stop: 03/14/18 10:01 Last Admin: 03/06/18 09:20 Dose: 125 mg Losartan Potassium (Cozaar) 100 mg PO DAILY [facility] Last Admin: 03/06/18 09:20 Dose: 100 mg Pantoprazole Sodium (Protonix Ec Tab) 40 mg PO DAILY [facility] Last Admin: 03/06/18 09:20 Dose: 40 mg - Labs Labs: 03/07/18 07:33 03/06/18 07:48 PT 13.9 SECONDS (9.7-12.2) H 03/04/18 12:39 INR 1.3 03/04/18 12:39 APTT 30 SECONDS (21-34) 03/04/18 12:39 - Constitutional Appears: No Acute Distress - Eye Exam Eye Exam: EOMI, PERRL - Neck Exam Neck Exam: absent: Lymphadenopathy, Thyromegaly - Respiratory Exam Respiratory Exam: NORMAL BREATHING PATTERN. absent: Rales, Rhonchi, Wheezes - Cardiovascular Exam Cardiovascular Exam: REGULAR RHYTHM, +S1, +S2. absent: Gallop, Rubs, Murmur - GI/Abdominal Exam GI & Abdominal Exam: Soft, Normal Bowel Sounds. absent: Tenderness, Mass, Organomegaly - Rectal Exam Rectal Exam: Deferred - Extremities Exam Extremities Exam: absent: Calf Tenderness, Pedal Edema Assessment and Plan (1) Symptomatic anemia Assessment & Plan: Anemia is due to carcinoma of rectum. Patient has been evaluated by the oncologist, Dr. Rivera, and arrangements will be made for treatment. Patient should have surveillance colonoscopy in one year. Will sign off. Status: Acute
[2018-03-07 08:46] VITALS: BP 129/56; PULSE 87; TEMP 97.2; O2SAT 99
[2018-03-07] MEDS: Ferric Sodium Gluconat Complex 62.5 mg/5 ml Vial IVPB SCH (09:15)
[2018-03-07] MEDS: Pantoprazole 40 mg EC Tab PO SCH (09:15)
--- NOTE | 2018-03-07 13:00 | CP.PCM.PN ---
Subjective - Date & Time of Evaluation Date of Evaluation: 03/07/18 Time of Evaluation: 13:00 - Subjective Subjective: PATIENT WAS ADMITTED FOR SYMPTOMATIC ANEMIA AND LOWER GI BLEEDING AAOX3 / DENIES CHEST PAIN / SOB / NAUSEA OR VOMITING / BLOODY STOOL Objective - Vital Signs/Intake and Output Vital Signs (last 24 hours): Temp Pulse Resp BP Pulse Ox 97.2 F L 87 20 129/56 L 99 03/07/18 08:00 03/07/18 08:00 03/07/18 08:00 03/07/18 08:00 03/07/18 08:00 - Medications Medications: Current Medications Amlodipine Besylate (Norvasc) 10 mg PO DAILY [facility] Last Admin: 03/07/18 09:15 Dose: 10 mg Ferric Sodium Gluconate Complex (Ferrlecit) 125 mg IVPB DAILY [facility] Stop: 03/14/18 10:01 Last Admin: 03/07/18 09:15 Dose: 125 mg Losartan Potassium (Cozaar) 100 mg PO DAILY [facility] Last Admin: 03/07/18 09:15 Dose: 100 mg Pantoprazole Sodium (Protonix Ec Tab) 40 mg PO DAILY [facility] Last Admin: 03/07/18 09:15 Dose: 40 mg - Labs Labs: 03/07/18 07:33 03/07/18 07:33 PT 13.9 SECONDS (9.7-12.2) H 03/04/18 12:39 INR 1.3 03/04/18 12:39 APTT 30 SECONDS (21-34) 03/04/18 12:39 Assessment and Plan - Assessment and Plan (Free Text) Assessment: PATIENT SEEN AND EXAMINED AT THE [facility] POST COLONOSCOPY SHOW RECTAL MASS / BLEEDING STOP / BLOOD TRANSFUSION / HEMOGLOBIN STABLE DISCUSS WITH CARSON AND DR CAVAZOS WHO CLEAR FOR DC FOLLOW UP WITH DR BYRD IN 1-2 WEEK AT HIS OFFICE ---CALL FOR APPOINTMENT FOLLOW UP WITH DR SY IN HIS OFFICE ---CALL FOR APPOINTMENT ADDRESS SURVEILLANCE COLONOSCOPY WHICH SHOULD DONE A 1 YEAR FROM NOW FOLLOW UP WITH DR SANCHES IN OFFICE ---CALL FOR APPOINTMENT ADDRESS PET SCAN/ MRI FOR STAGING YOUR RECTAL MASS/ OR POSSIBLE RECTAL SX DEPENDING ON THE STAGE AND RESULT CONTINUE HOME MEDICATION ACTIVITY TOLERATED CALL DR BYDR OR GO TO THE EMERGENCY ROOM IF SYMPTOMS RETURN OR WORSENING DISCUSS WITH PATIENT WHO AGREE AND VERBALIZED UNDERSTANDING
[2018-03-07 14:49] LABS: HEMOGLOBIN A 96.7 Percent (>96.0); HEMOGLOBIN A2 2.3 Percent (1.8-3.5)
--- NOTE | 2018-03-12 10:28 | CP.PCM.DIS ---
Provider - Provider Date of Admission: 03/04/18 15:34 Attending physician: Ryder Ray MD Primary care physician: Dr Mague Ray Consults: Dr Perez ( GI ), Dr Rivera ( HemOnc ). Time Spent in preparation of Discharge (in minutes): 30 Diagnosis - Discharge Diagnosis (1) Lower GI bleeding Status: Acute (2) Symptomatic anemia Status: Acute (3) Hypertension Status: Chronic (4) Rectal adenocarcinoma Status: Acute Comment: For outpatient PET CT scan, then radiation therapy and surgery. Hospital Course - Lab Results Lab Results: Most Recent Lab Values WBC 11.2 K/uL (4.8-10.8) H 03/07/18 07:33 RBC 3.46 Mil/uL (4.40-5.90) L 03/07/18 07:33 Hgb 9.4 g/dL (12.0-18.0) L 03/07/18 07:33 Hct 27.9 % (35.0-51.0) L 03/07/18 07:33 MCV 80.8 fL (80.0-94.0) 03/07/18 07:33 MCH 27.3 pg (27.0-31.0) 03/07/18 07:33 MCHC 33.7 g/dL (33.0-37.0) 03/07/18 07:33 RDW 17.4 % (11.5-14.5) H 03/07/18 07:33 Plt Count 240 K/uL (130-400) 03/07/18 07:33 MPV 7.0 fL (7.2-11.7) L 03/07/18 07:33 Neut % (Auto) 82.6 % (50.0-75.0) H 03/07/18 07:33 Lymph % (Auto) 10.0 % (20.0-40.0) L 03/07/18 07:33 [place] % (Auto) 7.0 % (0.0-10.0) 03/07/18 07:33 Eos % (Auto) 0.0 % (0.0-4.0) 03/07/18 07:33 Baso % (Auto) 0.4 % (0.0-2.0) 03/07/18 07:33 Neut # (Auto) 9.2 K/uL (1.8-7.0) H 03/07/18 07:33 Lymph # (Auto) 1.1 K/uL (1.0-4.3) 03/07/18 07:33 [place] # (Auto) 0.8 K/uL (0.0-0.8) 03/07/18 07:33 Eos # (Auto) 0.0 K/uL (0.0-0.7) 03/07/18 07:33 Baso # (Auto) 0.0 K/uL (0.0-0.2) 03/07/18 07:33 Neutrophils % (Manual) 80 % (50-75) H 03/06/18 07:48 Band Neutrophils % 5 % (0-2) H 03/06/18 07:48 Lymphocytes % (Manual) 8 % (20-40) L 03/06/18 07:48 Reactive Lymphs % 1 % (0-0) H 03/04/18 12:39 Monocytes % (Manual) 7 % (0-10) 03/06/18 07:48 Toxic Granulation Present 03/06/18 07:48 Platelet Estimate Normal (NORMAL) 03/06/18 07:48 Hypochromasia (manual) Slight 03/06/18 07:48 Anisocytosis (manual) Slight 03/06/18 07:48 Ovalocytes Slight 03/06/18 07:48 Retic Count 2.7 % (0.5-1.5) H 03/04/18 20:00 Hemoglobin A 96.7 Percent (>96.0) 03/04/18 20:00 Hemoglobin A2 2.3 Percent (1.8-3.5) 03/04/18 20:00 Hemoglobin C 0.0 Percent (0.0-0.0) 03/04/18 20:00 Hemoglobin F () <1.0 Percent (<2.0) 03/04/18 20:00 Hemoglobin S 0.0 Percent (0.0-0.0) 03/04/18 20:00 Variant Hemoglobin 0.0 Percent (0.0-0.0) 03/04/18 20:00 Hemoglobinopathy Red Blood Count 2.89 Mill/mcL (4.20-5.80) L 03/04/18 20:00 Hemoglobinopathy Hct 24.4 % (38.5-50.0) L 03/04/18 20:00 Hemoglobinopathy Hgb 7.4 g/dL (13.2-17.1) L 03/04/18 20:00 Hemoglobinopathy MCV 84.2 fL (80.0-100.0) 03/04/18 20:00 Hemoglobinopathy MCH 25.5 pg (27.0-33.0) L 03/04/18 20:00 Hemoglobinopathy RDW 19.7 % (11.0-15.0) H 03/04/18 20:00 Hemoglobinopathy Interp See note 03/04/18 20:00 PT 13.9 SECONDS (9.7-12.2) H 03/04/18 12:39 INR 1.3 03/04/18 12:39 APTT 30 SECONDS (21-34) 03/04/18 12:39 Sodium 131 mmol/L (132-148) L 03/07/18 07:33 Potassium 3.7 mmol/L (3.6-5.2) 03/07/18 07:33 Chloride 101 mmol/L (98-107) 03/07/18 07:33 Carbon Dioxide 22 mmol/L (22-30) 03/07/18 07:33 Anion Gap 12 (10-20) 03/07/18 07:33 BUN 10 mg/dL (9-20) 03/07/18 07:33 Creatinine 1.1 mg/dL (0.8-1.5) 03/07/18 07:33 Est GFR ( Amer) > 60 03/07/18 07:33 Est GFR (Non-Af Amer) > 60 03/07/18 07:33 Random Glucose 134 mg/dL (75-110) H 03/07/18 07:33 Calcium 8.0 mg/dl (8.6-10.4) L 03/07/18 07:33 Iron 29 ug/dL (49-181) L 03/04/18 20:00 TIBC 233 ug/dL (250-450) L 03/04/18 20:00 % Saturation 13 (20-55) L 03/04/18 20:00 Ferritin 23.7 ng/mL 03/04/18 20:00 Total Bilirubin 0.6 mg/dL (0.2-1.3) 03/07/18 07:33 AST 19 U/L (17-59) 03/07/18 07:33 ALT 33 U/L (21-72) 03/07/18 07:33 Alkaline Phosphatase 89 U/L (38-126) 03/07/18 07:33 Total Protein 5.7 g/dL (6.3-8.3) L 03/07/18 07:33 Albumin 2.4 g/dL (3.5-5.0) L 03/07/18 07:33 Globulin 3.2 gm/dL (2.2-3.9) 03/07/18 07:33 Albumin/Globulin Ratio 0.8 (1.0-2.1) L 03/07/18 07:33 Carcinoembryonic Ag 12.1 ng/mL (0-3.0) H 03/06/18 07:48 Prostate Specific Ag 5.56 ng/mL (0.00-4.0) H 03/05/18 07:34 Vitamin B12 464 pg/mL (239-931) 03/04/18 20:00 Folate 10.5 ng/mL 03/04/18 20:00 Urine Color Yellow (YELLOW) 03/04/18 12:53 Urine Clarity Hazy (Clear) 03/04/18 12:53 Urine pH 5.0 (5.0-8.0) 03/04/18 12:53 Ur Specific [place] 1.011 (1.003-1.030) 03/04/18 12:53 Urine Protein Negative mg/dL (NEGATIVE) 03/04/18 12:53 Urine Glucose (UA) Normal mg/dL (Normal) 03/04/18 12:53 Urine Ketones Negative mg/dL (NEGATIVE) 03/04/18 12:53 Urine Blood 1+ (NEGATIVE) H 03/04/18 12:53 Urine Nitrate Negative (NEGATIVE) 03/04/18 12:53 Urine Bilirubin Negative (NEGATIVE) 03/04/18 12:53 Urine Urobilinogen Normal mg/dL (0.2-1.0) 03/04/18 12:53 Ur Leukocyte Esterase Neg [place]/uL (Negative) 03/04/18 12:53 Urine WBC (Auto) 7 /hpf (0-5) H 03/04/18 12:53 Urine RBC (Auto) 2 /hpf (0-3) 03/04/18 12:53 Urine Bacteria Rare (<OCC) 03/04/18 12:53 Urine Sperm (Auto) Rare /hpf (NONE) H 03/04/18 12:53 Stool Occult Blood Positive (NEGATIVE) H 03/04/18 12:39 Blood Type O POSITIVE 03/04/18 12:39 Antibody Screen Negative 03/04/18 12:39 - Hospital Course Hospital Course: 67 years old [place] male found to have a hgb=6.5 on an outpatient CBC. The patient has been complaining of a painless rectal bleeding on and off for the past one month with generalized weakness, poor appetite, loss of weight ( about 28 lbs in one month ). He is known to have a hypertension, a BPH, a hypercholesterolemia , gout, on Amlodipine, Losartan, Simvastatin. He quit cigarette smoking 15 years ago, denies any abdominal pain, nausea, vomiting, fever. On admission, his Hgb: 6.7, Plt: 363,000 PT/INR 1.3 aPTT: 30 serum Na+: 127 K+: 5.4 BUN: 17 Creatinine: 1.3 low serum iron: 29 Normal serum vit B12 and Folate. CXR:mild cardiomegaly. The patient was transfused 3 units of PRC and underwent an EGD and a colonoscopy on 03/05/[address] Perez. The pathology reports revealed erosive gastritis, and esophagitis, and an invasive rectal carcinoma, moderately differentiated. Nicole Min was called to evaluate the patient. A CT scan of the abdomen and pelvis revealed rectal wall thickening and no significant adenopathy. His Hbg went up to 9.2. He was discharged home on 03/07/2018. He will see Dr Rivera [facility], was scheduled for an outpatient PET Ct, and will be evaluated for radiation therapy, by a colo-rectal surgen and chemotherapy. He will resume all his home meds and iron sulfate. - Date & Time of H&P Date of H&P: 03/05/18 Discharge Exam - Head Exam Head Exam: NORMOCEPHALIC - Eye Exam Eye Exam: Normal appearance Pupil Exam: NORMAL ACCOMODATION - ENT Exam ENT Exam: Normal Exam - Neck Exam Neck exam: Normal Inspection - Respiratory Exam Respiratory Exam: Clear to PA & Lateral, NORMAL BREATHING PATTERN, UNREMARKABLE - Cardiovascular Exam Cardiovascular Exam: REGULAR RHYTHM - GI/Abdominal Exam GI & Abdominal Exam: Normal Bowel Sounds, Unremarkable - Rectal Exam Rectal Exam: Deferred - Extremities Exam Extremities exam: normal inspection - Back Exam Back exam: NORMAL INSPECTION - Neurological Exam Neurological exam: Alert, Normal Gait, Oriented x3, Reflexes Normal - Psychiatric Exam Psychiatric exam: Agitated - Skin Skin Exam: Normal Color, Warm Discharge Plan - Follow Up Plan Condition: FAIR Disposition: HOME/ ROUTINE Instructions: Upper GI Endoscopy, Gastrointestinal Bleeding (DC), Hypertension (DC) Additional Instructions: FOLLOW UP WITH DR RAY IN 1-2 WEEK AT HIS OFFICE ---CALL FOR APPOINTMENT FOLLOW UP WITH DR PEREZ IN HIS OFFICE ---CALL FOR APPOINTMENT ADDRESS SURVEILLANCE COLONOSCOPY WHICH SHOULD DONE A 1 YEAR FROM NOW FOLLOW UP WITH DR SANCHES IN OFFICE ---CALL FOR APPOINTMENT ADDRESS PET SCAN/ MRI FOR STAGING YOUR RECTAL MASS/ OR POSSIBLE RECTAL SX DEPENDING ON THE STAGE AND RESULT CONTINUE HOME MEDICATION ACTIVITY TOLERATED CALL DR RAY OR GO TO THE EMERGENCY ROOM IF SYMPTOMS RETURN OR WORSENING Referrals: Danyell Rivera MD [Staff Provider] - Ryder Ray MD [Staff Provider] - Pj Perez MD [Staff Provider] - Clinical Quality Measures - CQM - Heart Failure Will be discharged to: Home Follow Up Date (must be within 7 days from discharge): 03/14/18 Follow Up Time: 09:00 - Date & Time of Discharge Summary Date of Discharge Summary: 03/12/18 Time of Discharge Summary: 10:45
== END 2018-03-07 13:48 | disposition home or self-care (01) | DRG 375 ==
LOC: C.ER 11:24 → C.9E 15:34 → C.5S 16:45
PROVIDERS: ADMIT Internal Medicine Cardiovascular Disease; ATTEND Internal Medicine Cardiovascular Disease
PROC: 0DB88ZX Excision of Small Intestine, Via Natural or Artificial Opening Endoscopic, Diagnostic (ICD-10-PCS; 2018-03-05)
PROC: 30233N1 Transfusion of Nonautologous Red Blood Cells into Peripheral Vein, Percutaneous Approach (ICD-10-PCS; principal; 2018-03-05 14:50)
PROC: 0DBP8ZX Excision of Rectum, Via Natural or Artificial Opening Endoscopic, Diagnostic (ICD-10-PCS; 2018-03-05 14:50)
DX: C20 Malignant neoplasm of rectum (principal); K62.5 Hemorrhage of anus and rectum; E78.00 Pure hypercholesterolemia, unspecified; I10 Essential (primary) hypertension; K29.50 Unspecified chronic gastritis without bleeding; D63.0 Anemia in neoplastic disease; K44.9 Diaphragmatic hernia without obstruction or gangrene; B96.81 Helicobacter pylori [H. pylori] as the cause of diseases classified elsewhere; K21.9 Gastro-esophageal reflux disease without esophagitis; M10.9 Gout, unspecified; H54.62 Unqualified visual loss, left eye, normal vision right eye; Z87.891 Personal history of nicotine dependence; R97.20 Elevated prostate specific antigen [PSA]

== ENCOUNTER 2018-03-18 16:37 | Inpatient (IN) | payer MEDICARE ==
[2018-03-18 16:38] VITALS: BMI 21.1
[2018-03-18 17:34] LABS: BASO % 0.3 % (0.0-2.0); HEMOGLOBIN 9.6 g/dL (12.0-18.0); LYMPH # 1.1 K/uL (1.0-4.3); MEAN CORPUSCULAR HEMOGLOBIN 26.8 pg (27.0-31.0); MEAN CORPUSCULAR HGB CONC 32.2 g/dL (33.0-37.0); MEAN PLATELET VOLUME 7.2 fL (7.2-11.7); MONO # 0.8 K/uL (0.0-0.8); MONO % 5.1 % (0.0-10.0); NEUT # 14.1 K/uL (1.8-7.0); NEUT % 87.6 % (50.0-75.0); RBC 3.57 Mil/uL (4.40-5.90); RED CELL DISTRIBUTION WIDTH 17.3 % (11.5-14.5); WHITE BLOOD COUNT 16.1 K/uL (4.8-10.8)
[2018-03-18 17:35] LABS: MEAN CELL VOLUME 83.2 fL (80.0-94.0); PLATELET COUNT 431 K/uL (130-400)
[2018-03-18 17:40] LABS: INR 1.2; PROTHROMBIN TIME 13.6 SECONDS (9.7-12.2)
[2018-03-18 17:55] LABS: ALB/GLOB RATIO 0.8 (1.0-2.1); ALBUMIN 3.3 g/dL (3.5-5.0); ALT/SGPT 82 U/L (21-72); AST/SGOT 85 U/L (17-59); BLOOD UREA NITROGEN 18 mg/dL (9-20); CALCIUM 8.5 mg/dl (8.6-10.4); GFR NON-AFRICAN AMERICAN > 60
--- NOTE | 2018-03-18 18:11 | C.PDOC ---
History Of Present Illness 67 y/o male patient with history of rectal cancer was referred to the ED by Dr. Rivera for a blood transfusion. Patient reports having rectal bleeding and general weakness. Denies chest pain, nausea, vomiting, diarrhea, shortness of breath or any other associated symptoms. Time Seen by Provider: 03/18/18 17:15 Chief Complaint (Nursing): GI Problem History Per: Patient History/Exam Limitations: no limitations Onset/Duration Of Symptoms: Days Current Symptoms Are (Timing): Still Present Severity: Mild Associated Symptoms: Rectal Bleeding. denies: Nausea, Vomiting, Diarrhea Modifying Factors: None Past Medical History Reviewed: Historical Data, Nursing Documentation, Vital Signs Vital Signs: Last Vital Signs Temp 98.9 F 03/18/18 18:43 Pulse 95 H 03/18/18 18:43 Resp 22 03/18/18 18:43 BP 119/41 L 03/18/18 18:43 Pulse Ox 95 03/18/18 18:53 - Medical History PMH: Anemia, HTN, Hypercholesterolemia Surgical History: No Surg Hx - [facility] Procedures EXCISION OF RECTUM, ENDO, DIAGN (03/04/18) EXCISION OF SMALL INTESTINE, ENDO, DIAGN (03/04/18) TRANSFUSE NONAUT RED BLOOD CELLS IN PERIPH VEIN, PERC (03/04/18) Family History: States: Unknown Family Hx - Social History Hx Alcohol Use: No Hx Substance Use: No - Immunization History Hx Tetanus Toxoid Vaccination: No Hx Influenza Vaccination: No Hx Pneumococcal Vaccination: No Review Of Systems Constitutional: Positive for: Weakness, Malaise. Negative for: Fever, Chills, Sweats Cardiovascular: Negative for: Chest Pain Respiratory: Negative for: Shortness of Breath Gastrointestinal: Positive for: Other (Rectal bleeding ). Negative for: Nausea , Vomiting, Diarrhea, Rectal Pain Physical Exam - Physical Exam Additional Physical Exam Comments: Constitutional: No acute distress. Head: Normocephalic. Atraumatic. Eyes: PERRL. ENT: Moist mucous membranes. Neck: Supple. Cardiovascular: Regular rate. Radial pulse 2+ bilaterally. Chest: No tenderness. Respiratory: Clear to auscultation bilaterally. GI: Soft. Nontender. Nondistended. Back: No CVA tenderness. Musculoskeletal: No tenderness or swelling of extremities. Skin: No rash. Neurologic: Alert, no focal deficit. ED Course And Treatment - Laboratory Results Result Diagrams: 03/18/18 17:28 03/18/18 17:28 O2 Sat by Pulse Oximetry: 95 (RA) Pulse Ox Interpretation: Normal Medical Decision Making Medical Decision Making: Impression:67 y/o male patient with rectal bleeding, sent to the ED for blood transfusion. Plan: CXR Labs Blood type/screen CXR Results: IMPRESSION: Bibasilar opacities with small bilateral pleural effusion, reticular interstitial infiltrate and pulmonary vascular congestive change. Possible pulmonary edema. Alternatively, bilateral lower lobe pneumonia. Dr. Ray accepts patient to his service, started on broad spectrum antibiotics for PNA, will hold off on blood tranfusion. Hyperkalemia cocktail administered. No EKG changes. EKG NSR 95 bpm, no peaked T waves. No ST elevations. Disposition Discussed With : Ryder Ray Doctor Will See Patient In The: Hospital - Disposition Disposition: HOSPITALIZED Disposition Time: 19:05 Condition: GUARDED Forms: [employer] ([place]) - POA Core Measure Indicators: Pneumonia - Clinical Impression Clinical Impression: Pneumonia, Anemia, Hyperkalemia, Hyponatremia - Scribe Statement The provider has reviewed the documentation as recorded by the Oscar Malone Provider Attestation: All medical record entries made by the Oscar were at my direction and personally dictated by me. I have reviewed the chart and agree that the record accurately reflects my personal performance of the history, physical exam, medical decision making, and the department course for this patient. I have also personally directed, reviewed, and agree with the discharge instructions and disposition.
[2018-03-18 18:16] LABS: ANISOCYTOSIS SLIGHT; LYMPHOCYTE 7 % (20-40); MONOCYTE 2 % (0-10); NEUTROPHIL 91 % (50-75); PLATELET ESTIMATE NORMAL (NORMAL); TOTAL CELLS COUNTED 100
[2018-03-18 18:17] LABS: HYPOCHROMIC SLIGHT; OVALOCYTES SLIGHT; POIKILOCYTOSIS SLIGHT
--- NOTE | 2018-03-18 18:37 | RAD ---
Date of service: 03/18/2018 HISTORY: r/o PNA COMPARISON: 03/04/2018 FINDINGS: LUNGS: Bibasilar alveolar opacities. Suspicious for bilateral pneumonia versus pulmonary edema. Vague diffuse interstitial prominence, right greater than left. Possible interstitial pulmonary edema. PLEURA: Small bilateral pleural effusion. No pneumothorax. CARDIOVASCULAR: Normal heart size. Mild congestive change. OSSEOUS STRUCTURES: No significant abnormalities. VISUALIZED UPPER ABDOMEN: Normal. OTHER FINDINGS: None. IMPRESSION: Bibasilar opacities with small bilateral pleural effusion, reticular interstitial infiltrate and pulmonary vascular congestive change. Possible pulmonary edema. Alternatively, bilateral lower lobe pneumonia.
[2018-03-18] MEDS ORDERED: Sodium Chloride 0.9% 1,000 ML IV STA (18:56)
[2018-03-18] MEDS ORDERED: Vancomycin 1 gm/NS 200 ml 1 GM/200 ML BAG IVPB STA (18:56)
[2018-03-18] MEDS ORDERED: Cefepime IV 1 gm in Dextrose 1 GM/50 ML BAG IVPB STA (18:56)
[2018-03-18] MEDS ORDERED: (Novolin R) Insulin Human Regular 100 units/ml vial IV ONE (19:02)
[2018-03-18] MEDS ORDERED: Albuterol 0.083% Inhal Sol (2.5 mg/3 mL) UD INH STA (19:02)
[2018-03-18] MEDS ORDERED: Dextrose 50% SYRINGE Inj (50 ml) IV STA (19:02)
[2018-03-18] MEDS ORDERED: Sodium Bicarbonate (8.4%) 50 Meq Syringe IVP ONE (19:02)
[2018-03-18] MEDS ORDERED: (Novolin R) Insulin Human Regular 100 units/ml vial ONE (19:24)
[2018-03-18] MEDS ORDERED: Dextrose 50% SYRINGE Inj (50 ml) ONE (19:25)
[2018-03-18] MEDS ORDERED: Sodium Bicarbonate (8.4%) 50 Meq Syringe ONE (19:25)
[2018-03-18] MEDS ORDERED: Albuterol-Ipratrop 3 mg / 0.5 (3 ml) UD ONE (19:37)
[2018-03-18 20:12] LABS: ALB/GLOB RATIO 0.7 (1.0-2.1); ALBUMIN 2.9 g/dL (3.5-5.0); ALT/SGPT 76 U/L (21-72); AST/SGOT 56 U/L (17-59); BLOOD UREA NITROGEN 16 mg/dL (9-20); CALCIUM 8.1 mg/dl (8.6-10.4); GFR NON-AFRICAN AMERICAN > 60
[2018-03-19] MEDS ORDERED: Albuterol-Ipratrop 3 mg / 0.5 (3 ml) UD ONE (03:02)
[2018-03-19] MEDS ORDERED: Albuterol-Ipratrop 3 mg / 0.5 (3 ml) UD INH STA (03:03)
[2018-03-19 04:24] LABS: BASO # 0.1 K/uL (0.0-0.2); BASO % 0.4 % (0.0-2.0); HEMOGLOBIN 8.4 g/dL (12.0-18.0); LYMPH # 0.7 K/uL (1.0-4.3); LYMPH % 4.5 % (20.0-40.0); MEAN CELL VOLUME 81.3 fL (80.0-94.0); MEAN CORPUSCULAR HEMOGLOBIN 27.2 pg (27.0-31.0); MEAN CORPUSCULAR HGB CONC 33.5 g/dL (33.0-37.0); MEAN PLATELET VOLUME 6.7 fL (7.2-11.7); MONO # 0.7 K/uL (0.0-0.8); MONO % 4.4 % (0.0-10.0); NEUT # 13.5 K/uL (1.8-7.0); NEUT % 90.7 % (50.0-75.0); NRBC % 0.1 % (0.0-2.0); PLATELET COUNT 352 K/uL (130-400); RBC 3.07 Mil/uL (4.40-5.90); RED CELL DISTRIBUTION WIDTH 17.4 % (11.5-14.5); WHITE BLOOD COUNT 14.9 K/uL (4.8-10.8)
[2018-03-19 04:41] LABS: ALB/GLOB RATIO 0.7 (1.0-2.1); ALBUMIN 2.5 g/dL (3.5-5.0); ALT/SGPT 73 U/L (21-72); AST/SGOT 51 U/L (17-59); BLOOD UREA NITROGEN 15 mg/dL (9-20); CALCIUM 7.7 mg/dl (8.6-10.4); GFR NON-AFRICAN AMERICAN > 60
[2018-03-19] MEDS: Sodium Chloride 0.9% 1,000 ML IV SCH ×3 (05:27→20:49)
[2018-03-19 06:26] LABS: HYPOCHROMIC SLIGHT; LYMPHOCYTE 5 % (20-40); MICROCYTOSIS SLIGHT; MONOCYTE 5 % (0-10); NEUTROPHIL 90 % (50-75); PLATELET ESTIMATE NORMAL (NORMAL); TOTAL CELLS COUNTED 100
--- NOTE | 2018-03-19 11:03 | CP.PCM.CON ---
History of Present Illness - History of Present Illness History of Present Illness: Mr Grace is a 67 year old male with a locally advanced rectal cancer. He presented in early February to [facility] after being found to have a low h/h by his PCP. He stated that he had a month long history of rectal bleeding off and on as well as fatigue. He has been having small stools. He also had a 28lb weight loss. On admission, he had a CT of the chest, abdomen and pelvis on March 05, 2018 revealed interval circumferential wall thickening of the rectal wall with no lymphadenopathy. There were tiny sub-centimeter hypodense lesions in the liver as well as sub-cm nodule in the right param-fissure in his lung. He had a colonoscopy and upper endoscopy on March 05, 2018. The colonoscopy was significant for a fungating mass from 5cm to 14cm from the anal verge. He had a CT/PET scan on March 15, 2018 revealed a 6cm segmental mass in the rectum with a SUV of 20.3. In the right lower quadrant, there were two foci of hypermetabolic activity of 7.5 with no correlative lesion which was of questionable significance of early peritoneal deposit. There were no regional estelle, liver or lung metastases. He was recently sent back to the emergency room yesterday for fatigue and lower h/h. He is also found to be hyponatremic on admission as well. His CEA was 12.1 in March 06, 2018. He is referred to us for consideration of radiation therapy. 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 - GENITOURINARY/GYNECOLOGICAL Hx Genitourinary Disorders: No - PSYCHIATRIC Hx Substance Use: No - SURGICAL HISTORY Hx Surgeries: Yes Hx Herniorrhaphy: Yes (left) - ANESTHESIA Hx Anesthesia: Yes Hx Anesthesia Reactions: No Meds Allergies/Adverse Reactions: Allergies Allergy/AdvReac Type Severity Reaction Status Date / Time aspirin Allergy Verified 03/18/18 16:47 - Medications Medications: Current Medications Acetaminophen (Tylenol 325mg Tab) 650 mg PO Q4 PRN PRN Reason: Pain, Mild (1-3) Amlodipine Besylate (Norvasc) 10 mg PO DAILY [facility] Ferrous Sulfate (Feosol) 325 mg PO TID [facility] Ceftriaxone Sodium 1 gm/ (Sodium Chloride) 100 mls @ 200 mls/hr IVPB Q24H ANIYAH PRN Reason: Protocol Azithromycin 500 mg/ Sodium (Chloride) 250 mls @ 167 mls/hr IVPB Q24H ANIYAH PRN Reason: Protocol Sodium Chloride (Sodium Chloride 0.9%) 1,000 mls @ 80 mls/hr IV .[id number] [facility] Last Admin: 03/19/18 05:27 Dose: 80 mls/hr Losartan Potassium (Cozaar) 100 mg PO DAILY [facility] Physical Exam - Head Exam Additional comments: left cheek lipoma - Respiratory Exam Respiratory Exam: Clear to Auscultation Bilateral - Cardiovascular Exam Cardiovascular Exam: REGULAR RHYTHM - GI/Abdominal Exam GI & Abdominal Exam: Normal Bowel Sounds - Neurological Exam Neurological exam: Oriented x3 Results - Vital Signs Recent Vital Signs: Last Vital Signs Temp 97.6 F 03/19/18 09:08 Pulse 106 H 03/19/18 09:08 Resp 20 03/19/18 09:08 BP 113/52 L 03/19/18 09:08 Pulse Ox 93 L 03/19/18 09:08 - Labs Result Diagrams: 03/19/18 04:20 03/19/18 04:20 Labs: Laboratory Results - last 24 hr 03/18/18 03/18/18 03/18/18 17:28 17:28 17:28 WBC 16.1 H RBC 3.57 L Hgb 9.6 L Hct 29.7 L MCV 83.2 D MCH 26.8 L MCHC 32.2 L RDW 17.3 H Plt Count 431 H D MPV 7.2 Neut % (Auto) 87.6 H Lymph % (Auto) 7.0 L [place] % (Auto) 5.1 Eos % (Auto) 0.0 Baso % (Auto) 0.3 Neut # (Auto) 14.1 H Lymph # (Auto) 1.1 [place] # (Auto) 0.8 Eos # (Auto) 0.0 Baso # (Auto) 0.0 Neutrophils % (Manual) 91 H Lymphocytes % (Manual) 7 L Monocytes % (Manual) 2 Platelet Estimate Normal Hypochromasia (manual) Slight Poikilocytosis (manual Slight Anisocytosis (manual) Slight Microcytosis (manual) Ovalocytes Slight PT 13.6 H INR 1.2 APTT 41 H Sodium 126 L Potassium 5.9 H Chloride 93 L Carbon Dioxide 21 L Anion Gap 18 BUN 18 Creatinine 1.0 Est GFR ( Amer) > 60 Est GFR (Non-Af Amer) > 60 Random Glucose 136 H Hemoglobin A1c Calcium 8.5 L Total Bilirubin 1.0 AST 85 H D ALT 82 H D Alkaline Phosphatase 161 H D Total Protein 7.7 Albumin 3.3 L D Globulin 4.3 H Albumin/Globulin Ratio 0.8 L Blood Type Antibody Screen Antibody Identification 03/18/18 03/18/18 03/19/18 18:27 19:52 04:20 WBC 14.9 H RBC 3.07 L Hgb 8.4 L Hct 25.0 L MCV 81.3 MCH 27.2 MCHC 33.5 RDW 17.4 H Plt Count 352 MPV 6.7 L Neut % (Auto) 90.7 H Lymph % (Auto) 4.5 L [place] % (Auto) 4.4 Eos % (Auto) 0.0 Baso % (Auto) 0.4 Neut # (Auto) 13.5 H Lymph # (Auto) 0.7 L [place] # (Auto) 0.7 Eos # (Auto) 0.0 Baso # (Auto) 0.1 Neutrophils % (Manual) 90 H Lymphocytes % (Manual) 5 L Monocytes % (Manual) 5 Platelet Estimate Normal Hypochromasia (manual) Slight Poikilocytosis (manual Anisocytosis (manual) Microcytosis (manual) Slight Ovalocytes PT INR APTT Sodium 125 L Potassium 4.9 Chloride 93 L Carbon Dioxide 22 Anion Gap 15 BUN 16 Creatinine 1.1 Est GFR ( Amer) > 60 Est GFR (Non-Af Amer) > 60 Random Glucose 132 H Hemoglobin A1c Calcium 8.1 L Total Bilirubin 0.6 AST 56 ALT 76 H Alkaline Phosphatase 144 H Total Protein 6.7 Albumin 2.9 L Globulin 3.9 Albumin/Globulin Ratio 0.7 L Blood Type O POSITIVE Antibody Screen Positive Antibody Identification Anti Lori 03/19/18 03/19/18 04:20 04:20 WBC RBC Hgb Hct MCV MCH MCHC RDW Plt Count MPV Neut % (Auto) Lymph % (Auto) [place] % (Auto) Eos % (Auto) Baso % (Auto) Neut # (Auto) Lymph # (Auto) [place] # (Auto) Eos # (Auto) Baso # (Auto) Neutrophils % (Manual) Lymphocytes % (Manual) Monocytes % (Manual) Platelet Estimate Hypochromasia (manual) Poikilocytosis (manual Anisocytosis (manual) Microcytosis (manual) Ovalocytes PT INR APTT Sodium 127 L Potassium 4.5 Chloride 99 Carbon Dioxide 19 L Anion Gap 14 BUN 15 Creatinine 0.9 Est GFR ( Amer) > 60 Est GFR (Non-Af Amer) > 60 Random Glucose 139 H Hemoglobin A1c 6.5 Calcium 7.7 L Total Bilirubin 0.6 AST 51 ALT 73 H Alkaline Phosphatase 128 H Total Protein 6.1 L Albumin 2.5 L Globulin 3.5 Albumin/Globulin Ratio 0.7 L Blood Type Antibody Screen Antibody Identification Assessment & Plan - Assessment and Plan (Free Text) Assessment: Mr Grace is a 67 year old male with a locally advanced rectal cancer which is bleeding resulting in lowering his hemoglobin and hematocrit. He will be getting a blood transfusion. As discussed with Dr Lewis, the significance of the hypermetabolic uptake in the right lower quadrant was unclear. Obviously, if it is early peritoneal deposits, he would be upstaged to stage IV. If it is unrelated and a false positive, then he would be stage II. The idea that this is early peritoneal deposit with no correlative soft tissue lesion, is unclear. He has no regional estelle, liver or lung metastases. One would think that he would have evidence of metastases in the more common locations prior to early peritoneal metastases. We would agree with Dr Lewis that a MRI of the pelvic may help clarify this as well. Given his bleeding and due to the above issues, we would feel that it may be more prudent to treat him aggressively with chemoradiation rather than to treat him palliatively. We spoke to him about radiation therapy including the risks and benefits. Informed consent was obtained. We will simulate him today, and begin treatment tomorrow due to his bleeding. We will also treat him using 3D conformal therapy which would comprehensively cover the rectal lesion and the questionable findings in the right lower quadrant.
--- NOTE | 2018-03-19 13:35 | CP.PCM.CON ---
History of Present Illness - History of Present Illness History of Present Illness: his is a 67 year old man with anemia and rectal bleeding. Patient has a four month history of rectal bleeding. He was admitted two weeks ago with anemia, HGB 6.7. Colonoscopy at that time showed a fungating rectal mass; EGD showed hiatal hernia and erosive gastritis. CT scan showed circumferential wall thickening of the rectal wall with no lymphadenopathy. CT/ PET scan on March 15, 2018 revealed a 6 cm segmental mass in the rectum. In the right lower quadrant, there were two foci of hypermetabolic activity with no correlative lesion which was of questionable significance of early peritoneal deposit. There were no regional estelle, liver or lung metastases. CEA was 12.1 on March 06, 2018. He was admitted 03/18/2018 for transfusion. He continues to complain of weakness and rectal bleeding. The stools are thin as well. He denies having nausea, vomiting, heartburn, difficulty swallowing, loss of appetite and loss of weight. He has been evaluated by Radiation Oncology, and treatments will begin shortly. Review of Systems - Review of Systems All systems: reviewed and no additional remarkable complaints except - Constitutional Constitutional: Weakness. absent: Chills, Fever - Cardiovascular Cardiovascular: absent: Chest Pain - Respiratory Respiratory: absent: Dyspnea - Gastrointestinal Gastrointestinal: Hematochezia. 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 - GENITOURINARY/GYNECOLOGICAL Hx Genitourinary Disorders: No - PSYCHIATRIC Hx Substance Use: No - SURGICAL HISTORY Hx Surgeries: Yes Hx Herniorrhaphy: Yes (left) - ANESTHESIA Hx Anesthesia: Yes Hx Anesthesia Reactions: No Meds Allergies/Adverse Reactions: Allergies Allergy/AdvReac Type Severity Reaction Status Date / Time aspirin Allergy Verified 03/18/18 16:47 - Medications Medications: Current Medications Acetaminophen (Tylenol 325mg Tab) 650 mg PO Q4 PRN PRN Reason: Pain, Mild (1-3) Amlodipine Besylate (Norvasc) 10 mg PO DAILY [facility] Last Admin: 03/19/18 10:00 Dose: Not Given Ferrous Sulfate (Feosol) 325 mg PO TID [facility] Last Admin: 03/19/18 13:12 Dose: 325 mg Ceftriaxone Sodium 1 gm/ (Sodium Chloride) 100 mls @ 200 mls/hr IVPB Q24H ANIYAH PRN Reason: Protocol Azithromycin 500 mg/ Sodium (Chloride) 250 mls @ 167 mls/hr IVPB Q24H ANIYAH PRN Reason: Protocol Sodium Chloride (Sodium Chloride 0.9%) 1,000 mls @ 80 mls/hr IV .[id number] [facility] Last Admin: 03/19/18 05:27 Dose: 80 mls/hr Losartan Potassium (Cozaar) 100 mg PO DAILY [facility] Last Admin: 03/19/18 10:00 Dose: Not Given Physical Exam - Eye Exam Eye Exam: EOMI, PERRL - Neck Exam Neck exam: Negative for: Lymphadenopathy, Thyromegaly - Respiratory Exam Respiratory Exam: NORMAL BREATHING PATTERN. absent: Rales, Rhonchi, Wheezes - Cardiovascular Exam Cardiovascular Exam: REGULAR RHYTHM, +S1, +S2. absent: Gallop, Rubs, Systolic Murmur - GI/Abdominal Exam GI & Abdominal Exam: Normal Bowel Sounds, Soft. absent: Mass, Organomegaly, Tenderness - Rectal Exam Rectal Exam: Deferred - Extremities Exam Extremities exam: Negative for: calf tenderness, pedal edema Results - Vital Signs Recent Vital Signs: Last Vital Signs Temp 97.6 F 03/19/18 09:08 Pulse 106 H 03/19/18 09:08 Resp 20 03/19/18 09:08 BP 113/52 L 03/19/18 09:08 Pulse Ox 93 L 03/19/18 09:08 - Labs Result Diagrams: 03/19/18 04:20 03/19/18 04:20 Labs: Laboratory Results - last 24 hr 03/18/18 03/18/18 03/18/18 17:28 17:28 17:28 WBC 16.1 H RBC 3.57 L Hgb 9.6 L Hct 29.7 L MCV 83.2 D MCH 26.8 L MCHC 32.2 L RDW 17.3 H Plt Count 431 H D MPV 7.2 Neut % (Auto) 87.6 H Lymph % (Auto) 7.0 L [place] % (Auto) 5.1 Eos % (Auto) 0.0 Baso % (Auto) 0.3 Neut # (Auto) 14.1 H Lymph # (Auto) 1.1 [place] # (Auto) 0.8 Eos # (Auto) 0.0 Baso # (Auto) 0.0 Neutrophils % (Manual) 91 H Lymphocytes % (Manual) 7 L Monocytes % (Manual) 2 Platelet Estimate Normal Hypochromasia (manual) Slight Poikilocytosis (manual Slight Anisocytosis (manual) Slight Microcytosis (manual) Ovalocytes Slight PT 13.6 H INR 1.2 APTT 41 H Sodium 126 L Potassium 5.9 H Chloride 93 L Carbon Dioxide 21 L Anion Gap 18 BUN 18 Creatinine 1.0 Est GFR ( Amer) > 60 Est GFR (Non-Af Amer) > 60 Random Glucose 136 H Hemoglobin A1c Calcium 8.5 L Total Bilirubin 1.0 AST 85 H D ALT 82 H D Alkaline Phosphatase 161 H D Total Protein 7.7 Albumin 3.3 L D Globulin 4.3 H Albumin/Globulin Ratio 0.8 L Blood Type Antibody Screen Antibody Identification 03/18/18 03/18/18 03/19/18 18:27 19:52 04:20 WBC 14.9 H RBC 3.07 L Hgb 8.4 L Hct 25.0 L MCV 81.3 MCH 27.2 MCHC 33.5 RDW 17.4 H Plt Count 352 MPV 6.7 L Neut % (Auto) 90.7 H Lymph % (Auto) 4.5 L [place] % (Auto) 4.4 Eos % (Auto) 0.0 Baso % (Auto) 0.4 Neut # (Auto) 13.5 H Lymph # (Auto) 0.7 L [place] # (Auto) 0.7 Eos # (Auto) 0.0 Baso # (Auto) 0.1 Neutrophils % (Manual) 90 H Lymphocytes % (Manual) 5 L Monocytes % (Manual) 5 Platelet Estimate Normal Hypochromasia (manual) Slight Poikilocytosis (manual Anisocytosis (manual) Microcytosis (manual) Slight Ovalocytes PT INR APTT Sodium 125 L Potassium 4.9 Chloride 93 L Carbon Dioxide 22 Anion Gap 15 BUN 16 Creatinine 1.1 Est GFR ( Amer) > 60 Est GFR (Non-Af Amer) > 60 Random Glucose 132 H Hemoglobin A1c Calcium 8.1 L Total Bilirubin 0.6 AST 56 ALT 76 H Alkaline Phosphatase 144 H Total Protein 6.7 Albumin 2.9 L Globulin 3.9 Albumin/Globulin Ratio 0.7 L Blood Type O POSITIVE Antibody Screen Positive Antibody Identification Anti Lori 03/19/18 03/19/18 04:20 04:20 WBC RBC Hgb Hct MCV MCH MCHC RDW Plt Count MPV Neut % (Auto) Lymph % (Auto) [place] % (Auto) Eos % (Auto) Baso % (Auto) Neut # (Auto) Lymph # (Auto) [place] # (Auto) Eos # (Auto) Baso # (Auto) Neutrophils % (Manual) Lymphocytes % (Manual) Monocytes % (Manual) Platelet Estimate Hypochromasia (manual) Poikilocytosis (manual Anisocytosis (manual) Microcytosis (manual) Ovalocytes PT INR APTT Sodium 127 L Potassium 4.5 Chloride 99 Carbon Dioxide 19 L Anion Gap 14 BUN 15 Creatinine 0.9 Est GFR ( Amer) > 60 Est GFR (Non-Af Amer) > 60 Random Glucose 139 H Hemoglobin A1c 6.5 Calcium 7.7 L Total Bilirubin 0.6 AST 51 ALT 73 H Alkaline Phosphatase 128 H Total Protein 6.1 L Albumin 2.5 L Globulin 3.5 Albumin/Globulin Ratio 0.7 L Blood Type Antibody Screen Antibody Identification Assessment & Plan (1) Rectal adenocarcinoma Assessment and Plan: Patient has been diagnosed recently with adenocarcinoma of the rectum. He will begin radiation and chemotherapy. He should have surveillance colonoscopy in one year. Will follow. Status: Acute
--- NOTE | 2018-03-19 17:09 | CP.PCM.CON ---
History of Present Illness - History of Present Illness History of Present Illness: 67 yo man recently diagnosed with moderately differentiated rectal cancer, when he presented with rectal bleeding, weight loss and anemia. CAT sca done in the hospital showed small liver lesions, no pelvic LN. He was seen in the office yesterday after a PET scan with c/o recurrent rectal bleeding and progressive weakness. The PET scan is revealing uptake in the rectum and increased uptake in 2 foci in the rt. pelvis, possible peritoneal implants. The patient denies pain, fever, sweats, says he has frequent bowel movements, every time he eats and now is scared to eat. 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 - GENITOURINARY/GYNECOLOGICAL Hx Genitourinary Disorders: No - PSYCHIATRIC Hx Substance Use: No - SURGICAL HISTORY Hx Surgeries: Yes Hx Herniorrhaphy: Yes (left) - ANESTHESIA Hx Anesthesia: Yes Hx Anesthesia Reactions: No Meds Allergies/Adverse Reactions: Allergies Allergy/AdvReac Type Severity Reaction Status Date / Time aspirin Allergy Verified 03/18/18 16:47 - Medications Medications: Current Medications Acetaminophen (Tylenol 325mg Tab) 650 mg PO Q4 PRN PRN Reason: Pain, Mild (1-3) Amlodipine Besylate (Norvasc) 10 mg PO DAILY [facility] Last Admin: 03/19/18 10:00 Dose: Not Given Ferrous Sulfate (Feosol) 325 mg PO TID [facility] Last Admin: 03/19/18 13:12 Dose: 325 mg Ceftriaxone Sodium 1 gm/ (Sodium Chloride) 100 mls @ 200 mls/hr IVPB Q24H ANIYAH PRN Reason: Protocol Last Admin: 03/19/18 13:37 Dose: 200 mls/hr Azithromycin 500 mg/ Sodium (Chloride) 250 mls @ 167 mls/hr IVPB Q24H ANIYAH PRN Reason: Protocol Sodium Chloride (Sodium Chloride 0.9%) 1,000 mls @ 80 mls/hr IV .[id number] [facility] Last Admin: 03/19/18 13:39 Dose: 80 mls/hr Losartan Potassium (Cozaar) 100 mg PO DAILY [facility] Last Admin: 03/19/18 10:00 Dose: Not Given Results - Vital Signs Recent Vital Signs: Last Vital Signs Temp 97.6 F 03/19/18 09:08 Pulse 100 H 03/19/18 13:00 Resp 20 03/19/18 09:08 BP 113/52 L 03/19/18 09:08 Pulse Ox 93 L 03/19/18 09:08 - Labs Result Diagrams: 03/19/18 04:20 03/19/18 04:20 Labs: Laboratory Results - last 24 hr 03/18/18 03/18/18 03/18/18 17:28 17:28 17:28 WBC 16.1 H RBC 3.57 L Hgb 9.6 L Hct 29.7 L MCV 83.2 D MCH 26.8 L MCHC 32.2 L RDW 17.3 H Plt Count 431 H D MPV 7.2 Neut % (Auto) 87.6 H Lymph % (Auto) 7.0 L [place] % (Auto) 5.1 Eos % (Auto) 0.0 Baso % (Auto) 0.3 Neut # (Auto) 14.1 H Lymph # (Auto) 1.1 [place] # (Auto) 0.8 Eos # (Auto) 0.0 Baso # (Auto) 0.0 Neutrophils % (Manual) 91 H Lymphocytes % (Manual) 7 L Monocytes % (Manual) 2 Platelet Estimate Normal Hypochromasia (manual) Slight Poikilocytosis (manual Slight Anisocytosis (manual) Slight Microcytosis (manual) Ovalocytes Slight PT 13.6 H INR 1.2 APTT 41 H Sodium 126 L Potassium 5.9 H Chloride 93 L Carbon Dioxide 21 L Anion Gap 18 BUN 18 Creatinine 1.0 Est GFR ( Amer) > 60 Est GFR (Non-Af Amer) > 60 Random Glucose 136 H Hemoglobin A1c Calcium 8.5 L Total Bilirubin 1.0 AST 85 H D ALT 82 H D Alkaline Phosphatase 161 H D Total Protein 7.7 Albumin 3.3 L D Globulin 4.3 H Albumin/Globulin Ratio 0.8 L Blood Type Antibody Screen Antibody Identification 03/18/18 03/18/18 03/19/18 18:27 19:52 04:20 WBC 14.9 H RBC 3.07 L Hgb 8.4 L Hct 25.0 L MCV 81.3 MCH 27.2 MCHC 33.5 RDW 17.4 H Plt Count 352 MPV 6.7 L Neut % (Auto) 90.7 H Lymph % (Auto) 4.5 L [place] % (Auto) 4.4 Eos % (Auto) 0.0 Baso % (Auto) 0.4 Neut # (Auto) 13.5 H Lymph # (Auto) 0.7 L [place] # (Auto) 0.7 Eos # (Auto) 0.0 Baso # (Auto) 0.1 Neutrophils % (Manual) 90 H Lymphocytes % (Manual) 5 L Monocytes % (Manual) 5 Platelet Estimate Normal Hypochromasia (manual) Slight Poikilocytosis (manual Anisocytosis (manual) Microcytosis (manual) Slight Ovalocytes PT INR APTT Sodium 125 L Potassium 4.9 Chloride 93 L Carbon Dioxide 22 Anion Gap 15 BUN 16 Creatinine 1.1 Est GFR ( Amer) > 60 Est GFR (Non-Af Amer) > 60 Random Glucose 132 H Hemoglobin A1c Calcium 8.1 L Total Bilirubin 0.6 AST 56 ALT 76 H Alkaline Phosphatase 144 H Total Protein 6.7 Albumin 2.9 L Globulin 3.9 Albumin/Globulin Ratio 0.7 L Blood Type O POSITIVE Antibody Screen Positive Antibody Identification Anti Lori 03/19/18 03/19/18 04:20 04:20 WBC RBC Hgb Hct MCV MCH MCHC RDW Plt Count MPV Neut % (Auto) Lymph % (Auto) [place] % (Auto) Eos % (Auto) Baso % (Auto) Neut # (Auto) Lymph # (Auto) [place] # (Auto) Eos # (Auto) Baso # (Auto) Neutrophils % (Manual) Lymphocytes % (Manual) Monocytes % (Manual) Platelet Estimate Hypochromasia (manual) Poikilocytosis (manual Anisocytosis (manual) Microcytosis (manual) Ovalocytes PT INR APTT Sodium 127 L Potassium 4.5 Chloride 99 Carbon Dioxide 19 L Anion Gap 14 BUN 15 Creatinine 0.9 Est GFR ( Amer) > 60 Est GFR (Non-Af Amer) > 60 Random Glucose 139 H Hemoglobin A1c 6.5 Calcium 7.7 L Total Bilirubin 0.6 AST 51 ALT 73 H Alkaline Phosphatase 128 H Total Protein 6.1 L Albumin 2.5 L Globulin 3.5 Albumin/Globulin Ratio 0.7 L Blood Type Antibody Screen Antibody Identification Assessment & Plan (1) Rectal adenocarcinoma Assessment and Plan: 67 yo man wth adenocarcinoma of rectum, presenting with elevated CEA, possible peritoneal implants in the rt. pelvis raising concern for advanced disease. Will get MRI of pelvis, if normal, will proceed with RT as planned, if the MRI is abnormal, will consider needle biopsy and ?? palliative chemo. Above discussed with patient and family Status: Acute
--- NOTE | 2018-03-19 18:37 | CP.PCM.CON ---
History of Present Illness - History of Present Illness History of Present Illness: 67 y/o male patient with history of rectal cancer was referred to the ED by Dr. Rivera for a blood transfusion. Patient reports having rectal bleeding and general weakness. Recently dx rectal CA and now admitted with pneumonia and severe anemia four month history of rectal bleeding. He was admitted two weeks ago with anemia, HGB 6.7. Colonoscopy at that time showed a fungating rectal mass; EGD showed hiatal hernia and erosive gastritis. CT scan showed circumferential wall thickening of the rectal wall with no lymphadenopathy. CT/PET scan on March 15, 2018 revealed a 6 cm segmental mass in the rectum. - Medical History PMH: Anemia, HTN, Hypercholesterolemia Surgical History: No Surg Hx - [facility] Procedures EXCISION OF RECTUM, ENDO, DIAGN (03/04/18) EXCISION OF SMALL INTESTINE, ENDO, DIAGN (03/04/18) TRANSFUSE NONAUT RED BLOOD CELLS IN PERIPH VEIN, PERC (03/04/18) Review of Systems - Review of Systems All systems: reviewed and no additional remarkable complaints except - Constitutional Constitutional: As Per HPI - EENT Eyes: Blind Spots, Loss of Peripheral Vision. absent: As Per HPI, Blurred Vision, Change in Vision, Decreased Night Vision, Diplopia, Discharge, Dry Eye, Exophthalmos, Floaters, Irritation, Itchy Eyes, Pain, Photophobia, Requires Corrective Lenses, Sees Flashes, Spots in Vision, Tunnel Vision, Other Visual Disturbances, Loss of Vision, Other Ears: absent: As Per HPI, Decreased Hearing, Ear Discharge, Ear Pain, Tinnitus, Abnormal Hearing, Disequilibrium, Dizziness, Other Nose/Mouth/Throat: absent: As Per HPI, Epistaxis, Nasal Congestion, Nasal Discharge, Nasal Obstruction, Nasal Trauma, Nose Pain, Post Nasal Drip, Sinus Pain, Sinus Pressure, Bleeding Gums, Change in Voice, Dental Pain, Dry Mouth, Dysphagia, Halitosis, Hoarsness, Lip Swelling, Mouth Lesions, Mouth Pain, Odynophagia, Sore Throat, Throat Swelling, Tongue Swelling, Facial Pain, Neck Pain, Neck Mass, Other - Cardiovascular Cardiovascular: absent: As Per HPI, Acrocyanosis, Chest Pain, Chest Pain at Rest , Chest Pain with Activity, Claudication, Diaphoresis, Dyspnea, Dyspnea on Exertion, Edema, Irregular Heart Rhythm, Pain Radiating to Arm/Neck/Jaw, Leg Edema, Leg Ulcers, Lightheadedness, Orthopnea, Palpitations, Paroxysmal Nocturnal Dyspnea, Pedal Edema, Radiating Pain, Rapid Heart Rate, Slow Heart Rate, Syncope, Other - Respiratory Respiratory: As Per HPI, Cough - Gastrointestinal Gastrointestinal: As Per HPI - Genitourinary Genitourinary: absent: As Per HPI, Change in Urinary Stream, Difficulty Urinating, Dysuria, Flank Pain, Hematuria, Pyuria, Nocturia, Urinary Incontinence, Urinary Frequency, Urinary Hesitance, Urinary Urgency, Voiding Freq/Small Amts, Freq UTI, Hx Renal/Bladder Calculi, Hx /Renal Surgery, Bladder Distension, Other - Musculoskeletal Musculoskeletal: absent: As Per HPI, Abnormal Gait, Arthralgias, Atrophy, Back Pain, Deformity, Joint Swelling, Limited Range of Motion, Loss of Height, Muscle Cramps, Muscle Weakness, Myalgias, Neck Pain, Numbness, Radiating Pain into Limb, Stiffness, Tingling, Other - Integumentary Integumentary: absent: As Per HPI, Acne, Alopecia, Bleeding Lesions, Change in Hair, Change in Nails, Change in Pigmentation, Changing Lesions, Dry Skin, Erythema, Furuncle, Hirsutism, Lesions, New Lesions, Non-Healing Lesions, Photosensitivity, Pruritus, Rash, Skin Pain, Skin Ulcer, Sores, Striae, Swelling , Unusual Bruising, Wounds, Jaundice, Other - Neurological Neurological: absent: As Per HPI, Abnormal Gait, Abnormal Hearing, Abnormal Movements, Abnormal Speech, Behavioral Changes, Burning Sensations, Confusion, Convulsions, Disequilibrium, Dizziness, Numbness, Focal Weakness, Frequent Falls , Headaches, Lack of Coordination, Loss of Vision, Memory Loss, Paresthesias, Radicular Pain, Restless Legs, Sensory Deficit, Syncope, Tingling, Tremor, Vertigo, Weakness, Other Visual Disturbances, Other - Psychiatric Psychiatric: absent: As Per HPI, Abnormal Sleep Pattern, Anhedonia, Anxiety, Auditory Hallucinations, Behavioral Changes, Change in Appetite, Change in Libido, Confusion, Depression, Difficulty Concentrating, Hallucinations, Homicidal Ideation, Hopelessness, Irritability, Memory Loss, Mood Swings, Panic Attacks, Paranoia, Suicidal Ideation, Visual Hallucinations, Tactile Hallucinations, Other - Endocrine Endocrine: absent: As Per HPI, Change in Body Appearance, Change in Libido, Cold Intolorance, Deepening of Voice, Excessive Sweating, Fatigue, Flushing, Heat Intolorance, Increase in Ring/Shoe/Hat Size, Palpitations, Polydipsia, Polyphagia, Polyuria, Other - Hematologic/Lymphatic Hematologic: As Per HPI Past Patient History - Past Medical History & Family History Past Medical History?: Yes - Past Social History Smoking Status: Former Smoker Alcohol: None - CARDIAC Hx Hypercholesterolemia: Yes Hx Hypertension: Yes - PULMONARY Hx Respiratory Disorders: No - NEUROLOGICAL Hx Neurological Disorder: No - HEENT Hx HEENT Problems: Yes 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 - GENITOURINARY/GYNECOLOGICAL Hx Genitourinary Disorders: No - PSYCHIATRIC Hx Substance Use: No - SURGICAL HISTORY Hx Surgeries: Yes Hx Herniorrhaphy: Yes (left) - ANESTHESIA Hx Anesthesia: Yes Hx Anesthesia Reactions: No Meds Allergies/Adverse Reactions: Allergies Allergy/AdvReac Type Severity Reaction Status Date / Time aspirin Allergy Verified 03/18/18 16:47 - Medications Medications: Current Medications Acetaminophen (Tylenol 325mg Tab) 650 mg PO Q4 PRN PRN Reason: Pain, Mild (1-3) Amlodipine Besylate (Norvasc) 10 mg PO DAILY [facility] Last Admin: 03/19/18 10:00 Dose: Not Given Ferrous Sulfate (Feosol) 325 mg PO TID [facility] Last Admin: 03/19/18 13:12 Dose: 325 mg Ceftriaxone Sodium 1 gm/ (Sodium Chloride) 100 mls @ 200 mls/hr IVPB Q24H ANIYAH PRN Reason: Protocol Last Admin: 03/19/18 13:37 Dose: 200 mls/hr Azithromycin 500 mg/ Sodium (Chloride) 250 mls @ 167 mls/hr IVPB Q24H ANIYAH PRN Reason: Protocol Sodium Chloride (Sodium Chloride 0.9%) 1,000 mls @ 80 mls/hr IV .[id number] [facility] Last Admin: 03/19/18 13:39 Dose: 80 mls/hr Losartan Potassium (Cozaar) 100 mg PO DAILY [facility] Last Admin: 03/19/18 10:00 Dose: Not Given Physical Exam - Constitutional Appears: Non-toxic, Cachectic, Chronically Ill - Head Exam Head Exam: NORMOCEPHALIC - Eye Exam Eye Exam: PERRL. absent: Scleral icterus - ENT Exam ENT Exam: Mucous Membranes Dry, Normal External Ear Exam - Neck Exam Neck exam: Negative for: Lymphadenopathy - Respiratory Exam Respiratory Exam: Decreased Breath Sounds, Rhonchi, Wheezes - Cardiovascular Exam Cardiovascular Exam: REGULAR RHYTHM, +S1, +S2 - GI/Abdominal Exam GI & Abdominal Exam: Diminished Bowel Sounds, Soft. absent: Tenderness - Rectal Exam Rectal Exam: Deferred - Exam Exam: NORMAL INSPECTION - Extremities Exam Extremities exam: Positive for: pedal pulses present. Negative for: calf tenderness, pedal edema, tenderness - Back Exam Back exam: absent: CVA tenderness (L), CVA tenderness (R), paraspinal tenderness - Neurological Exam Neurological exam: Alert, CN II-XII Intact, Oriented x3, Reflexes Normal - Psychiatric Exam Psychiatric exam: Depressed - Skin Skin Exam: Dry Results - Vital Signs Recent Vital Signs: Last Vital Signs Temp 98.0 F 03/19/18 15:17 Pulse 92 H 03/19/18 15:17 Resp 20 03/19/18 15:17 BP 116/52 L 03/19/18 15:17 Pulse Ox 95 03/19/18 15:17 - Labs Result Diagrams: 03/19/18 04:20 03/19/18 04:20 Labs: Laboratory Results - last 24 hr 03/18/18 03/18/18 03/19/18 18:27 19:52 04:20 WBC 14.9 H RBC 3.07 L Hgb 8.4 L Hct 25.0 L MCV 81.3 MCH 27.2 MCHC 33.5 RDW 17.4 H Plt Count 352 MPV 6.7 L Neut % (Auto) 90.7 H Lymph % (Auto) 4.5 L [place] % (Auto) 4.4 Eos % (Auto) 0.0 Baso % (Auto) 0.4 Neut # (Auto) 13.5 H Lymph # (Auto) 0.7 L [place] # (Auto) 0.7 Eos # (Auto) 0.0 Baso # (Auto) 0.1 Neutrophils % (Manual) 90 H Lymphocytes % (Manual) 5 L Monocytes % (Manual) 5 Platelet Estimate Normal Hypochromasia (manual) Slight Microcytosis (manual) Slight Sodium 125 L Potassium 4.9 Chloride 93 L Carbon Dioxide 22 Anion Gap 15 BUN 16 Creatinine 1.1 Est GFR ( Amer) > 60 Est GFR (Non-Af Amer) > 60 Random Glucose 132 H Hemoglobin A1c Calcium 8.1 L Total Bilirubin 0.6 AST 56 ALT 76 H Alkaline Phosphatase 144 H Total Protein 6.7 Albumin 2.9 L Globulin 3.9 Albumin/Globulin Ratio 0.7 L Blood Type O POSITIVE Antibody Screen Positive Antibody Identification Anti Lori 03/19/18 03/19/18 04:20 04:20 WBC RBC Hgb Hct MCV MCH MCHC RDW Plt Count MPV Neut % (Auto) Lymph % (Auto) [place] % (Auto) Eos % (Auto) Baso % (Auto) Neut # (Auto) Lymph # (Auto) [place] # (Auto) Eos # (Auto) Baso # (Auto) Neutrophils % (Manual) Lymphocytes % (Manual) Monocytes % (Manual) Platelet Estimate Hypochromasia (manual) Microcytosis (manual) Sodium 127 L Potassium 4.5 Chloride 99 Carbon Dioxide 19 L Anion Gap 14 BUN 15 Creatinine 0.9 Est GFR ( Amer) > 60 Est GFR (Non-Af Amer) > 60 Random Glucose 139 H Hemoglobin A1c 6.5 Calcium 7.7 L Total Bilirubin 0.6 AST 51 ALT 73 H Alkaline Phosphatase 128 H Total Protein 6.1 L Albumin 2.5 L Globulin 3.5 Albumin/Globulin Ratio 0.7 L Blood Type Antibody Screen Antibody Identification Assessment & Plan (1) Anemia Status: Acute (2) Pneumonia Status: Acute (3) Lower GI bleeding Status: Acute (4) Mass in rectum Status: Acute (5) Rectal adenocarcinoma Status: Acute - Assessment and Plan (Free Text) Assessment: await cultures for MRI IV antibiotics
[2018-03-19] MEDS: Azithromycin 500 MG in Sodium Chloride 0.9% 250 ML IVPB SCH (18:46)
--- NOTE | 2018-03-19 22:38 | CP.PCM.HP ---
History of Present Illness - History of Present Illness History of Present Illness: 67 years old [place] male, recently diagnosed of rectal cancer, was sent to the ED by Dr Rivera for continuing rectal bleeding. A recent PET/CT revealed possible pelvic implants of the tumor. He is known to have a BPH, a hypercholesterolemia, a bordeline DM, a gout, a HPTN. He quit cigarette smoking many years ago. On admission, a CXR revealed bilateral ba.silar consolidation and was started on IV Cefepime and Vancomycine in the ED Present on Admission - Present on Admission Any Indicators Present on Admission: No Review of Systems - Constitutional Constitutional: Anorexia, Weight Loss, Weakness - Gastrointestinal Gastrointestinal: Diarrhea, Hematochezia Past Patient History - Tetanus Immunizations Tetanus Immunization: Unknown - Past Medical History & Family History Past Medical History?: Yes - Past Social History Smoking Status: Former Smoker Alcohol: None Home Situation {Lives}: With Family Domestic Violence: Negative - CARDIAC Hx Hypercholesterolemia: Yes Hx Hypertension: Yes - PULMONARY Hx Respiratory Disorders: No - NEUROLOGICAL Hx Neurological Disorder: No - HEENT Hx HEENT Problems: Yes 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 - GENITOURINARY/GYNECOLOGICAL Hx Genitourinary Disorders: No - PSYCHIATRIC Hx Substance Use: No - SURGICAL HISTORY Hx Surgeries: Yes Hx Herniorrhaphy: Yes (left) - ANESTHESIA Hx Anesthesia: Yes Hx Anesthesia Reactions: No Meds Allergies/Adverse Reactions: Allergies Allergy/AdvReac Type Severity Reaction Status Date / Time aspirin Allergy Verified 03/18/18 16:47 Physical Exam - Constitutional Appears: Chronically Ill - Head Exam Head Exam: NORMAL INSPECTION - Eye Exam Eye Exam: Normal appearance Pupil Exam: NORMAL ACCOMODATION - ENT Exam ENT Exam: Normal Exam - Neck Exam Neck exam: Positive for: Normal Inspection - Respiratory Exam Respiratory Exam: Rhonchi - Cardiovascular Exam Cardiovascular Exam: REGULAR RHYTHM, Systolic Murmur - GI/Abdominal Exam GI & Abdominal Exam: Normal Bowel Sounds, Soft - Rectal Exam Rectal Exam: Bloody Stool - Extremities Exam Extremities exam: Positive for: normal inspection - Back Exam Back exam: NORMAL INSPECTION - Neurological Exam Neurological exam: Alert, Normal Gait, Oriented x3 - Psychiatric Exam Psychiatric exam: Anxious - Skin Skin Exam: Dry, Intact, Pallor Results - Vital Signs Recent Vital Signs: Last Vital Signs Temp 97.5 F L 03/19/18 22:32 Pulse 96 H 03/19/18 22:32 Resp 18 03/19/18 22:32 BP 103/53 L 03/19/18 22:32 Pulse Ox 95 03/19/18 15:17 - Labs Result Diagrams: 03/19/18 04:20 03/19/18 04:20 Labs: Laboratory Results - last 24 hr 03/18/18 03/19/18 03/19/18 18:27 04:20 04:20 WBC 14.9 H RBC 3.07 L Hgb 8.4 L Hct 25.0 L MCV 81.3 MCH 27.2 MCHC 33.5 RDW 17.4 H Plt Count 352 MPV 6.7 L Neut % (Auto) 90.7 H Lymph % (Auto) 4.5 L [place] % (Auto) 4.4 Eos % (Auto) 0.0 Baso % (Auto) 0.4 Neut # (Auto) 13.5 H Lymph # (Auto) 0.7 L [place] # (Auto) 0.7 Eos # (Auto) 0.0 Baso # (Auto) 0.1 Neutrophils % (Manual) 90 H Lymphocytes % (Manual) 5 L Monocytes % (Manual) 5 Platelet Estimate Normal Hypochromasia (manual) Slight Microcytosis (manual) Slight Sodium 127 L Potassium 4.5 Chloride 99 Carbon Dioxide 19 L Anion Gap 14 BUN 15 Creatinine 0.9 Est GFR ( Amer) > 60 Est GFR (Non-Af Amer) > 60 Random Glucose 139 H Hemoglobin A1c Calcium 7.7 L Total Bilirubin 0.6 AST 51 ALT 73 H Alkaline Phosphatase 128 H Total Protein 6.1 L Albumin 2.5 L Globulin 3.5 Albumin/Globulin Ratio 0.7 L Blood Type O POSITIVE Antibody Screen Positive Antibody Identification Anti Lori 03/19/18 04:20 WBC RBC Hgb Hct MCV MCH MCHC RDW Plt Count MPV Neut % (Auto) Lymph % (Auto) [place] % (Auto) Eos % (Auto) Baso % (Auto) Neut # (Auto) Lymph # (Auto) [place] # (Auto) Eos # (Auto) Baso # (Auto) Neutrophils % (Manual) Lymphocytes % (Manual) Monocytes % (Manual) Platelet Estimate Hypochromasia (manual) Microcytosis (manual) Sodium Potassium Chloride Carbon Dioxide Anion Gap BUN Creatinine Est GFR ( Amer) Est GFR (Non-Af Amer) Random Glucose Hemoglobin A1c 6.5 Calcium Total Bilirubin AST ALT Alkaline Phosphatase Total Protein Albumin Globulin Albumin/Globulin Ratio Blood Type Antibody Screen Antibody Identification Assessment & Plan (1) Lower GI bleeding Assessment and Plan: From a rectal cancer. Scheduled for a radiation therapy. Status: Acute (2) Anemia Assessment and Plan: From rectal bleeding. To follow with serial CBC. Status: Acute (3) Pneumonia Assessment and Plan: On IV Rocephin and Zithromax as per Dr Mcgregor. Status: Acute (4) Hyperkalemia Status: Resolved (5) Hyponatremia Assessment and Plan: Probably from diarrhea. Will correct with IV NS. Status: Acute
--- NOTE | 2018-03-19 23:35 | CARD ---
APPROVED REPORT Date of service: 03/18/2018 EKG Measurement Heart [id number] [id number] <Conclusion> Normal sinus rhythm Possible Left atrial enlargement ST & T wave abnormality, consider anterior ischemia Abnormal ECG
--- NOTE | 2018-03-20 07:28 | PCM.RRT ---
PAINT TESTER Nurses Assessment - Situation Date: 03/20/18 Time PAINT TESTER was called: 07:04 PAINT TESTER Responder Arrival Time:: 07:05 PAINT TESTER Location:: Med/Surg Room Number: 659b PAINT TESTER Reason for Call: O2 Saturation below 90% PAINT TESTER Called By: RN - Stat Labs Ordered PAINT TESTER Stat Labs Ordered: CBC, BMP, PT/PTT, TROPONIN PAINT TESTER Other Labs Ordered: Mg, P CPR started during PAINT TESTER?: No I.Reason for PAINT TESTER - A) Acute Change in Patient: Subjective: SHORTNESS OF BREATH - Neurological Status (Select all that apply): Alert, Oriented, Lethargic - Respiratory Oxygen Delivery Method: Non Rebreather @% (100%) - Head Head Exam: ATRAUMATIC, NORMOCEPHALIC - Eyes Additional Comments: LEFT EYE CHRONIC DROOP; WHITE IRIS/PUPIL ON LEFT - Respiratory Exam Respiratory Exam: Rales - Cardiovascular Exam Cardiovascular Exam: REGULAR RHYTHM, +S1, +S2 - GI/Abdominal Exam GI & Abdominal Exam: Soft. absent: Tenderness - Neurological Exam Neurological Exam: Alert, Awake, Oriented x3 - Extremities Exam Extremities Exam: absent: Pedal Edema Plan - Assessment of Findings&Treatment Plan PAINT TESTER called at 7:04 am for SOB by nurse Neely Upon arrival 7:06 am: Pulse 112 BP 147/57 O2 90% on n/c at 2L Temp 97.4 Glucose 158 Patient was getting up to urinate and became acutely short of breath. O2 sat dropped to 90% on 2L n/c. Patient is admitted under Dr. Ray for anemia/hyponatremia/GIB. He received 2u PRBC this morning prior to the episode of shortness of breath. Prior CXR demonstrates fluids congestion. The following orders were placed: EKG, CXR, MG, P, CBC, CMP, TROP, LASIX 40MG IVP, NRB @ 100% EKG was stable from prior EKG- no acute changes CXR demonstrates worsening fluid congestion Lasix given at 7:20 am Vitals post-treatment 7:15am: pulse 105 bp 135/56 o2 sat 98% NRB Final vitals 7:32am: Pulse 99 BP 124/56 O2 sat 98% NRB Impression: This patient's shortness of breath is likely due to the introduction of fluids into his system with the 2u PRBC which explains the changes noted above on the chest xRay. With the NRB and the addition of lasix the patient felt some relief. Further relief can be anticipated with diuresis. Upon re-examining the patient, he is comfortable, AAOx3. On exam patient had left eye droop and a mass on the left maxillary area. He stated that this was chronic, had been biopsied and found to be benign. This is to be confirmed by pt's PMD and further workup recommended if necessary. The case was discussed with attending Dr. Ray by nursing staff. All labs to be followed up by admitting physician in addition to our surveillance.
[2018-03-20 07:44] LABS: BASO % 0.4 % (0.0-2.0); HEMOGLOBIN 11.5 g/dL (12.0-18.0); LYMPH # 1.4 K/uL (1.0-4.3); LYMPH % 11.1 % (20.0-40.0); MEAN CELL VOLUME 83.7 fL (80.0-94.0); MEAN CORPUSCULAR HEMOGLOBIN 28.3 pg (27.0-31.0); MEAN CORPUSCULAR HGB CONC 33.8 g/dL (33.0-37.0); MONO # 0.8 K/uL (0.0-0.8); MONO % 6.1 % (0.0-10.0); NEUT # 10.6 K/uL (1.8-7.0); NEUT % 82.4 % (50.0-75.0); NRBC % 0.1 % (0.0-2.0); RBC 4.08 Mil/uL (4.40-5.90); RED CELL DISTRIBUTION WIDTH 17.3 % (11.5-14.5); WHITE BLOOD COUNT 12.8 K/uL (4.8-10.8)
[2018-03-20 07:48] LABS: ALB/GLOB RATIO 0.7 (1.0-2.1); ALBUMIN 2.5 g/dL (3.5-5.0); ALT/SGPT 56 U/L (21-72); AST/SGOT 36 U/L (17-59); BLOOD UREA NITROGEN 13 mg/dL (9-20); CALCIUM 7.7 mg/dl (8.6-10.4); GFR NON-AFRICAN AMERICAN > 60
[2018-03-20 08:01] LABS: CK-MB 1.21 ng/mL (0.0-3.38); INR 1.2; PROTHROMBIN TIME 13.6 SECONDS (9.7-12.2)
--- NOTE | 2018-03-20 08:27 | RAD ---
Chest x-ray single frontal view History: Chest pain. Comparison: 03/18/2018 Findings: Moderate venous congestion. Prominent consolidative changes in the mid to lower lung zones. Small to moderate bilateral pleural effusions. Bilateral hilar prominence. Calcification at the aortic knob. Cardiomegaly. Degenerative changes in the spine and shoulders. Calcific tendinopathy of the left proximal humerus. Impression: Moderate venous congestion. Prominent consolidative changes in the mid to lower lung zones. Bilateral hilar prominence. Small to moderate bilateral pleural effusions. Calcification at the aortic knob. Cardiomegaly. Degenerative changes in the spine and shoulders. Calcific tendinopathy of the left proximal humerus.
--- NOTE | 2018-03-20 16:09 | MRI ---
Date of service: 03/19/18 MRI abdomen without IV contrast Indication: rectal ca hypermet uptake on PET RLQ unclear Technique: Multiplanar, multi sequence magnetic resonance images of the abdomen were obtained without the administration of intravenous gadolinium using a multi phase abdomen protocol. A total of 193 images submitted for review Comparison: CT chest, abdomen, and pelvis with IV contrast performed 03/06/18 Findings: Irregular masslike wall thickening spanning approximately measuring approximately 5.1 cm in length involving the rectum. This mass does not extend beyond the serosa. Remainder of the visualized bowel loops appear within normal limits of caliber. No evidence of obstruction. 11 mm right perirectal lymph node described on preliminary report is not definitively identified. No bulky adenopathy appreciated. Mild thickening of the urinary bladder wall. Enlarged prostate gland measures approximately 3.9 x 4.7 cm. Mild presacral free fluid. No acute osseous abnormality is detected. Impression: Irregular rectal mass worrisome for malignant neoplasm without evidence of extension beyond the serosa. Preliminary impression was provided by virtual radiologic.
--- NOTE | 2018-03-20 17:26 | CP.PCM.PN ---
Subjective - Date & Time of Evaluation Date of Evaluation: 03/20/18 Time of Evaluation: 17:26 - Subjective Subjective: Patient SOB this AM. CXR revealed CHF and pleural effusion. Was given Lasix IV with improvement of symptoms. Denies any chest pain. ECG : sinus tach with poor R wave progression in V1, V2, V3. Serum TNI: 0.5 . Patient is comfortable now and is eating. Patient received 2 units of PRC previously.No rectal bleeding today. Repeated ECG did not show any acute change. Repeated TNI: 0.5. Will order CXR, ECG, TNI, CBC, BMP in AM. Objective - Vital Signs/Intake and Output Vital Signs (last 24 hours): Temp Pulse Resp BP Pulse Ox 97.7 F 95 H 20 119/42 L 98 03/20/18 15:31 03/20/18 15:31 03/20/18 15:31 03/20/18 15:31 03/20/18 15:31 Intake and Output: 03/20/18 03/20/18 06:59 18:59 Intake Total 850 300 Output Total 600 Balance 850 -300 - Medications Medications: Current Medications Acetaminophen (Tylenol 325mg Tab) 650 mg PO Q4 PRN PRN Reason: Pain, Mild (1-3) Amlodipine Besylate (Norvasc) 10 mg PO DAILY [facility] Last Admin: 03/20/18 09:31 Dose: 10 mg Ferrous Sulfate (Feosol) 325 mg PO TID [facility] Last Admin: 03/20/18 13:16 Dose: 325 mg Ceftriaxone Sodium 1 gm/ (Sodium Chloride) 100 mls @ 200 mls/hr IVPB Q24H [facility] PRN Reason: Protocol Last Admin: 03/20/18 09:31 Dose: 200 mls/hr Azithromycin 500 mg/ Sodium (Chloride) 250 mls @ 167 mls/hr IVPB Q24H ANIYAH PRN Reason: Protocol Last Admin: 03/19/18 18:46 Dose: 167 mls/hr Sodium Chloride (Sodium Chloride 0.9%) 1,000 mls @ 80 mls/hr IV .[id number] [facility] Last Admin: 03/19/18 20:49 Dose: Not Given Losartan Potassium (Cozaar) 100 mg PO DAILY [facility] Last Admin: 03/20/18 09:30 Dose: 100 mg - Labs Labs: 03/20/18 07:25 03/20/18 07:25 PT 13.6 SECONDS (9.7-12.2) H 03/20/18 07:25 INR 1.2 03/20/18 07:25 APTT 32 SECONDS (21-34) D 03/20/18 07:25 - Constitutional Appears: No Acute Distress, Chronically Ill - Head Exam Head Exam: NORMAL INSPECTION - Eye Exam Eye Exam: Normal appearance Pupil Exam: NORMAL ACCOMODATION - ENT Exam ENT Exam: Normal Exam - Neck Exam Neck Exam: Normal Inspection - Respiratory Exam Additional comments: Few rhonchi both bases. - Cardiovascular Exam Cardiovascular Exam: REGULAR RHYTHM - GI/Abdominal Exam GI & Abdominal Exam: Soft, Normal Bowel Sounds - Rectal Exam Rectal Exam: Deferred - Back Exam Back Exam: NORMAL INSPECTION - Neurological Exam Neurological Exam: Alert, Awake, Oriented x3 - Psychiatric Exam Psychiatric exam: Anxious - Skin Skin Exam: Dry, Intact, Normal Color, Warm Assessment and Plan (1) Lower GI bleeding Assessment & Plan: No bleeding today. Status: Acute (2) Anemia Assessment & Plan: JHad 2 units of PRC last night. Status: Acute (3) Pneumonia Assessment & Plan: On IV antibiotics. Status: Acute (4) Hyperkalemia Status: Resolved (5) Hyponatremia Status: Acute (6) Acute diastolic (congestive) heart failure Assessment & Plan: Due to fluid overload. Now resoved with IV Lasix. Slightly elevated TNI's probably due to acute CHF. Will order an Echo today, and do a stress MPI as an outpatient. Status: Acute
[2018-03-20] MEDS: Azithromycin 500 MG in Sodium Chloride 0.9% 250 ML IVPB SCH (17:55)
--- NOTE | 2018-03-20 18:36 | CP.PCM.PN ---
Subjective - Date & Time of Evaluation Date of Evaluation: 03/20/18 Time of Evaluation: 18:33 - Subjective Subjective: Patient received two units of PRBC overnight, and the HGB this morning is 11.5. He had an episode of shortness of breath this morning which was attributed to CHF. He denies having abdominal pain, nausea and vomiting. He again saw blood in the bowel movement. Objective - Vital Signs/Intake and Output Vital Signs (last 24 hours): Temp Pulse Resp BP Pulse Ox 97.7 F 95 H 20 119/42 L 98 03/20/18 15:31 03/20/18 15:31 03/20/18 15:31 03/20/18 15:31 03/20/18 15:31 Intake and Output: 03/20/18 03/20/18 06:59 18:59 Intake Total 850 300 Output Total 600 Balance 850 -300 - Medications Medications: Current Medications Acetaminophen (Tylenol 325mg Tab) 650 mg PO Q4 PRN PRN Reason: Pain, Mild (1-3) Amlodipine Besylate (Norvasc) 10 mg PO DAILY [facility] Last Admin: 03/20/18 09:31 Dose: 10 mg Ferrous Sulfate (Feosol) 325 mg PO TID ANIYAH Last Admin: 03/20/18 17:55 Dose: 325 mg Ceftriaxone Sodium 1 gm/ (Sodium Chloride) 100 mls @ 200 mls/hr IVPB Q24H ANIYAH PRN Reason: Protocol Last Admin: 03/20/18 09:31 Dose: 200 mls/hr Azithromycin 500 mg/ Sodium (Chloride) 250 mls @ 167 mls/hr IVPB Q24H ANIYAH PRN Reason: Protocol Last Admin: 03/20/18 17:55 Dose: 167 mls/hr Losartan Potassium (Cozaar) 100 mg PO DAILY [facility] Last Admin: 03/20/18 09:30 Dose: 100 mg - Labs Labs: 03/20/18 07:25 03/20/18 07:25 PT 13.6 SECONDS (9.7-12.2) H 03/20/18 07:25 INR 1.2 03/20/18 07:25 APTT 32 SECONDS (21-34) D 03/20/18 07:25 - Constitutional Appears: No Acute Distress - Head Exam Head Exam: ATRAUMATIC - Eye Exam Eye Exam: EOMI, PERRL - Neck Exam Neck Exam: absent: Lymphadenopathy, Thyromegaly - Respiratory Exam Respiratory Exam: NORMAL BREATHING PATTERN. absent: Rales, Rhonchi, Wheezes - Cardiovascular Exam Cardiovascular Exam: REGULAR RHYTHM, +S1, +S2. absent: Gallop, Rubs, Murmur - GI/Abdominal Exam GI & Abdominal Exam: Soft, Normal Bowel Sounds. absent: Tenderness, Mass, Organomegaly - Rectal Exam Rectal Exam: Deferred - Extremities Exam Extremities Exam: absent: Calf Tenderness, Pedal Edema Assessment and Plan (1) Rectal adenocarcinoma Assessment & Plan: Patient has documented carcinoma of the rectum. The course of radiation therapy has been planned and may start tomorrow. I will sign off. Please call again if any new GI problems develop. Status: Acute
--- NOTE | 2018-03-20 19:22 | CARD ---
APPROVED REPORT Date of service: 03/20/2018 EKG Measurement Heart [id number] <Conclusion> Sinus tachycardia Septal infarct, age undetermined Abnormal ECG
--- NOTE | 2018-03-20 19:29 | CP.PCM.PN ---
Subjective - Date & Time of Evaluation Date of Evaluation: 03/20/18 Time of Evaluation: 10:00 - Subjective Subjective: denies fever less sob + blood c/s cont iv rx for possible bacteremic pneumonia Objective - Vital Signs/Intake and Output Vital Signs (last 24 hours): Temp Pulse Resp BP Pulse Ox 97.7 F 95 H 20 119/42 L 98 03/20/18 15:31 03/20/18 15:31 03/20/18 15:31 03/20/18 15:31 03/20/18 15:31 Intake and Output: 03/20/18 03/21/18 18:59 06:59 Intake Total 300 Output Total 600 Balance -300 - Medications Medications: Current Medications Acetaminophen (Tylenol 325mg Tab) 650 mg PO Q4 PRN PRN Reason: Pain, Mild (1-3) Amlodipine Besylate (Norvasc) 10 mg PO DAILY [facility] Last Admin: 03/20/18 09:31 Dose: 10 mg Ferrous Sulfate (Feosol) 325 mg PO TID [facility] Last Admin: 03/20/18 17:55 Dose: 325 mg Ceftriaxone Sodium 1 gm/ (Sodium Chloride) 100 mls @ 200 mls/hr IVPB Q24H ANIYAH PRN Reason: Protocol Last Admin: 03/20/18 09:31 Dose: 200 mls/hr Azithromycin 500 mg/ Sodium (Chloride) 250 mls @ 167 mls/hr IVPB Q24H ANIYAH PRN Reason: Protocol Last Admin: 03/20/18 17:55 Dose: 167 mls/hr Losartan Potassium (Cozaar) 100 mg PO DAILY [facility] Last Admin: 03/20/18 09:30 Dose: 100 mg - Labs Labs: 03/20/18 07:25 03/20/18 07:25 PT 13.6 SECONDS (9.7-12.2) H 03/20/18 07:25 INR 1.2 03/20/18 07:25 APTT 32 SECONDS (21-34) D 03/20/18 07:25 - Constitutional Appears: Non-toxic, Chronically Ill - Head Exam Head Exam: NORMOCEPHALIC - Eye Exam Eye Exam: PERRL - ENT Exam ENT Exam: Mucous Membranes Dry - Neck Exam Neck Exam: absent: Lymphadenopathy - Respiratory Exam Respiratory Exam: Decreased Breath Sounds - Cardiovascular Exam Cardiovascular Exam: REGULAR RHYTHM - GI/Abdominal Exam GI & Abdominal Exam: Distended - Rectal Exam Rectal Exam: Deferred - Exam Exam: NORMAL INSPECTION - Extremities Exam Extremities Exam: absent: Pedal Edema Assessment and Plan (1) Anemia Status: Acute (2) Pneumonia Status: Acute (3) Lower GI bleeding Status: Acute (4) Mass in rectum Status: Acute (5) Rectal adenocarcinoma Status: Acute - Assessment and Plan (Free Text) Assessment: consider echo if not done IV rx renewed
--- NOTE | 2018-03-20 20:34 | CP.PCM.PN ---
Subjective - Date & Time of Evaluation Date of Evaluation: 03/20/18 Time of Evaluation: 20:22 - Subjective Subjective: The patient is feeling much better, rapid response this AM, secondary to fluid overload. Still with rectal bleeding, appetite remains poor. Discussed MRI results with patient, no clear evidence of perirectal LN or peritoneal lesions/implants Objective - Vital Signs/Intake and Output Vital Signs (last 24 hours): Temp Pulse Resp BP Pulse Ox 97.7 F 95 H 20 119/42 L 98 03/20/18 15:31 03/20/18 15:31 03/20/18 15:31 03/20/18 15:31 03/20/18 15:31 Intake and Output: 03/20/18 03/21/18 18:59 06:59 Intake Total 300 Output Total 600 Balance -300 - Medications Medications: Current Medications Acetaminophen (Tylenol 325mg Tab) 650 mg PO Q4 PRN PRN Reason: Pain, Mild (1-3) Amlodipine Besylate (Norvasc) 10 mg PO DAILY [facility] Last Admin: 03/20/18 09:31 Dose: 10 mg Ferrous Sulfate (Feosol) 325 mg PO TID [facility] Last Admin: 03/20/18 17:55 Dose: 325 mg Ceftriaxone Sodium 1 gm/ (Sodium Chloride) 100 mls @ 200 mls/hr IVPB Q24H ANIYAH PRN Reason: Protocol Last Admin: 03/20/18 09:31 Dose: 200 mls/hr Azithromycin 500 mg/ Sodium (Chloride) 250 mls @ 167 mls/hr IVPB Q24H ANIYAH PRN Reason: Protocol Last Admin: 03/20/18 17:55 Dose: 167 mls/hr Losartan Potassium (Cozaar) 100 mg PO DAILY [facility] Last Admin: 03/20/18 09:30 Dose: 100 mg - Labs Labs: 03/20/18 07:25 03/20/18 07:25 PT 13.6 SECONDS (9.7-12.2) H 03/20/18 07:25 INR 1.2 03/20/18 07:25 APTT 32 SECONDS (21-34) D 03/20/18 07:25 Assessment and Plan (1) Rectal adenocarcinoma Assessment & Plan: Seemingly localized rectal cancer, to resume radiation tomorrow, hopefully will be able to start PO Xeloda as outpatient. Status: Acute
[2018-03-21 07:19] LABS: BASO % 0.3 % (0.0-2.0); HEMOGLOBIN 10.8 g/dL (12.0-18.0); MEAN CELL VOLUME 84.3 fL (80.0-94.0); MEAN CORPUSCULAR HEMOGLOBIN 27.8 pg (27.0-31.0); MEAN PLATELET VOLUME 7.2 fL (7.2-11.7); MONO # 0.7 K/uL (0.0-0.8); MONO % 5.1 % (0.0-10.0); NEUT # 12.1 K/uL (1.8-7.0); NEUT % 87.6 % (50.0-75.0); PLATELET COUNT 381 K/uL (130-400); RBC 3.87 Mil/uL (4.40-5.90); RED CELL DISTRIBUTION WIDTH 17.4 % (11.5-14.5); WHITE BLOOD COUNT 13.8 K/uL (4.8-10.8)
[2018-03-21 07:54] LABS: ALB/GLOB RATIO 0.7 (1.0-2.1); ALBUMIN 2.6 g/dL (3.5-5.0); ALT/SGPT 49 U/L (21-72); AST/SGOT 25 U/L (17-59); BLOOD UREA NITROGEN 17 mg/dL (9-20); CALCIUM 8.1 mg/dl (8.6-10.4); GFR NON-AFRICAN AMERICAN > 60
--- NOTE | 2018-03-21 09:54 | RAD ---
Date of service: 03/21/2018 HISTORY: F/U CHF and/or pneumonia COMPARISON: No prior. TECHNIQUE: Chest PA and lateral FINDINGS: LUNGS: Mild vascular congestive changes slightly improved. Persistent bilateral bilateral lower lobe alveolar-type infiltrates and bilateral effusions. PLEURA: As above. No pneumothorax apparent. CARDIOVASCULAR: Normal. OSSEOUS STRUCTURES: No significant abnormalities. VISUALIZED UPPER ABDOMEN: Normal. OTHER FINDINGS: None. IMPRESSION: Mild vascular congestive changes slightly improved however there are persistent the slightly diminished bilateral lower lobe alveolar-type infiltrates and bilateral effusions.
[2018-03-21 09:55] LABS: BANDS 1 % (0-2); LYMPHOCYTE 8 % (20-40); MONOCYTE 5 % (0-10); NEUTROPHIL 86 % (50-75); TOTAL CELLS COUNTED 100
[2018-03-21 09:56] LABS: ANISOCYTOSIS SLIGHT; OVALOCYTES SLIGHT; PLATELET ESTIMATE NORMAL (NORMAL)
[2018-03-21] MEDS: Vancomycin 1 gm/NS 200 ml 1 GM/200 ML BAG IVPB SCH (14:18)
--- NOTE | 2018-03-21 14:38 | CARD ---
APPROVED REPORT Date of service: 03/21/2018 EXAM: Two-dimensional and M-mode echocardiogram with Doppler and color Doppler. Other Information Quality : GoodRhythm : INDICATION Congestive Heart Failure ELEVATED TNI RISK FACTORS Hypertension 2D DIMENSIONS IVSd1.2 (0.7-1.1cm)LVDd5.5 (3.9-5.9cm) LVOT Diameter2.0 (1.8-2.4cm)PWd1.2 (0.7-1.1cm) LVDs4.3 (2.5-4.0cm)FS (%) 20.4 % LVEF (%)41.3 (>50%) M-Mode DIMENSIONS Left Atrium (MM)3.13 (2.5-4.0cm)Aortic Root3.69 (2.2-3.7cm) Aortic Cusp Exc.1.88 (1.5-2.0cm) Mitral Valve MV E Noolwwss749.4cm/sMV A Ghkfhglg50.3cm/sMV CWF02cu E/A ratio2.7MVA (PHT)5.30cm2 TDI E/Lateral E'0.0E/Medial E'0.0 Pulmonary Valve PV Peak Zknuizjw90.1cm/sPV Peak Grad.1mmHg Tricuspid Valve TR Peak Iwzlblkd467al/sTR Peak Gr.[id number] LEFT VENTRICLE The left ventricle is normal size. There is normal left ventricular wall thickness. The systolic function is mildly impaired. No Regional wall motion abnormalities noted. Transmitral Doppler flow pattern is Grade I-abnormal relaxation pattern. RIGHT VENTRICLE The right ventricle is normal size. There is normal right ventricular wall thickness. The right ventricular systolic function is normal. ATRIA The left atrium size is normal. The right atrium size is normal. AORTIC VALVE The aortic valve is severely thickened. There is mild aortic regurgitation. Cannot exclude aortic valvular vegetation. Consider АЛЕКСАНДР MITRAL VALVE The mitral valve is mildly thickened. Mitral regurgitation is mild. TRICUSPID VALVE The tricuspid valve is normal in structure. There is moderate tricuspid regurgitation. There is moderate pulmonary hypertension. PULMONIC VALVE The pulmonary valve is normal in structure. There is no pulmonic valvular regurgitation. GREAT VESSELS The aortic root is normal in size. PERICARDIAL EFFUSION There is a small circumferential pericardial effusion. <Conclusion> The left ventricle is normal size. There is normal left ventricular wall thickness. The systolic function is mildly impaired. No Regional wall motion abnormalities noted. Transmitral Doppler flow pattern is Grade I-abnormal relaxation pattern. The aortic valve is severely thickened. Cannot exclude aortic valvular vegetation. Consider АЛЕКСАНДР There is mild aortic regurgitation. Mitral regurgitation is mild. There is moderate tricuspid regurgitation. There is moderate pulmonary hypertension.
--- NOTE | 2018-03-21 17:59 | CARD ---
APPROVED REPORT Date of service: 03/20/2018 EKG Measurement Heart [id number] [id number] [id number] <Conclusion> Normal sinus rhythm Possible Left atrial enlargement Nonspecific ST and T wave abnormality Prolonged QT Abnormal ECG
--- NOTE | 2018-03-21 18:33 | CP.PCM.PN ---
Subjective - Date & Time of Evaluation Date of Evaluation: 03/21/18 Time of Evaluation: 09:00 - Subjective Subjective: still congested now on NRBM at 100% FiO2 Blood c/s + for cocci echo + for vegetation awake alert Objective - Vital Signs/Intake and Output Vital Signs (last 24 hours): Temp Pulse Resp BP Pulse Ox 97.3 F L 92 H 20 118/53 L 94 L 03/21/18 15:00 03/21/18 15:00 03/21/18 15:00 03/21/18 15:00 03/21/18 15:00 Intake and Output: 03/21/18 03/21/18 06:59 18:59 Output Total 250 Balance -250 - Medications Medications: Current Medications Acetaminophen (Tylenol 325mg Tab) 650 mg PO Q4 PRN PRN Reason: Pain, Mild (1-3) Last Admin: 03/21/18 04:52 Dose: 650 mg Amlodipine Besylate (Norvasc) 10 mg PO DAILY [facility] Last Admin: 03/21/18 09:22 Dose: Not Given Ferrous Sulfate (Feosol) 325 mg PO TID [facility] Last Admin: 03/21/18 17:15 Dose: 325 mg Vancomycin/Sodium Chloride (Vancomycin 1 Gm/Ns 200 Ml) 1 gm in 200 mls @ 133.333 mls/hr IVPB Q12H ANIYAH PRN Reason: Protocol Last Admin: 03/21/18 14:18 Dose: 133.333 mls/hr Ceftriaxone Sodium 2 gm/ (Sodium Chloride) 100 mls @ 100 mls/hr IVPB Q12H ANIYAH PRN Reason: Protocol Last Admin: 03/21/18 17:00 Dose: 100 mls/hr Losartan Potassium (Cozaar) 100 mg PO DAILY [facility] Last Admin: 03/21/18 09:22 Dose: Not Given Tramadol HCl (Ultram) 50 mg PO Q6 PRN PRN Reason: Pain, moderate (4-7) Last Admin: 03/21/18 09:22 Dose: 50 mg - Labs Labs: 03/21/18 06:54 03/21/18 06:54 PT 13.6 SECONDS (9.7-12.2) H 03/20/18 07:25 INR 1.2 03/20/18 07:25 APTT 32 SECONDS (21-34) D 03/20/18 07:25 - Constitutional Appears: Toxic, Chronically Ill - Head Exam Head Exam: NORMOCEPHALIC - Eye Exam Eye Exam: absent: Scleral icterus - ENT Exam ENT Exam: Mucous Membranes Dry - Neck Exam Neck Exam: absent: Lymphadenopathy - Respiratory Exam Respiratory Exam: Decreased Breath Sounds, Prolonged Expiratory Phase, Rhonchi - Cardiovascular Exam Cardiovascular Exam: Tachycardia, REGULAR RHYTHM, +S1, +S2 - GI/Abdominal Exam GI & Abdominal Exam: Distended, Soft - Rectal Exam Rectal Exam: Deferred - Exam Exam: NORMAL INSPECTION - Extremities Exam Extremities Exam: absent: Pedal Edema - Back Exam Back Exam: absent: CVA tenderness (L), CVA tenderness (R) - Neurological Exam Neurological Exam: Alert, Awake, Oriented x3 Neuro motor strength exam: Left Upper Extremity: 4, Right Upper Extremity: 4, Left Lower Extremity: 4, Right Lower Extremity: 4 - Psychiatric Exam Psychiatric exam: Depressed, Flat Affect - Skin Skin Exam: Dry Assessment and Plan (1) Anemia Status: Acute (2) Pneumonia Status: Acute (3) Lower GI bleeding Status: Acute (4) Mass in rectum Status: Acute (5) Rectal adenocarcinoma Status: Acute - Assessment and Plan (Free Text) Assessment: CA rectum with mets admiitted for Pneumonia/ CHF now has + Blood cultures await ID and Sensitivity now on NRBM at 100% FiO2 Blood c/s + for cocci echo + for vegetation Cont Vanco/ Rocephin poor prognosis
--- NOTE | 2018-03-21 19:42 | CP.PCM.PN ---
Subjective - Date & Time of Evaluation Date of Evaluation: 03/21/18 Time of Evaluation: 13:45 - Subjective Subjective: Patient SOB and very weak. Had rectal bleeding last night and very poor appetite. Had RT this AM. CXR revealed less pulmonary congestion, and bilateral basilar consolidation. Serum TNI: 0.7. Echo: LVEF 50%, with vegetation on the right coronary cusp and mild AI. ECG: RSR, ASMI of undetrmined age. Objective - Vital Signs/Intake and Output Vital Signs (last 24 hours): Temp Pulse Resp BP Pulse Ox 97.3 F L 92 H 20 118/53 L 94 L 03/21/18 15:00 03/21/18 15:00 03/21/18 15:00 03/21/18 15:00 03/21/18 15:00 - Medications Medications: Current Medications Acetaminophen (Tylenol 325mg Tab) 650 mg PO Q4 PRN PRN Reason: Pain, Mild (1-3) Last Admin: 03/21/18 04:52 Dose: 650 mg Amlodipine Besylate (Norvasc) 10 mg PO DAILY [facility] Last Admin: 03/21/18 09:22 Dose: Not Given Ferrous Sulfate (Feosol) 325 mg PO TID [facility] Last Admin: 03/21/18 17:15 Dose: 325 mg Vancomycin/Sodium Chloride (Vancomycin 1 Gm/Ns 200 Ml) 1 gm in 200 mls @ 133.333 mls/hr IVPB Q12H ANIYAH PRN Reason: Protocol Last Admin: 03/21/18 14:18 Dose: 133.333 mls/hr Ceftriaxone Sodium 2 gm/ (Sodium Chloride) 100 mls @ 100 mls/hr IVPB Q12H ANIYAH PRN Reason: Protocol Last Admin: 03/21/18 17:00 Dose: 100 mls/hr Losartan Potassium (Cozaar) 100 mg PO DAILY [facility] Last Admin: 03/21/18 09:22 Dose: Not Given Tramadol HCl (Ultram) 50 mg PO Q6 PRN PRN Reason: Pain, moderate (4-7) Last Admin: 03/21/18 09:22 Dose: 50 mg - Labs Labs: 03/21/18 06:54 03/21/18 06:54 PT 13.6 SECONDS (9.7-12.2) H 03/20/18 07:25 INR 1.2 03/20/18 07:25 APTT 32 SECONDS (21-34) D 03/20/18 07:25 - Constitutional Appears: In Acute Distress, Cachectic, Chronically Ill - Head Exam Head Exam: NORMAL INSPECTION - Eye Exam Pupil Exam: NORMAL ACCOMODATION - ENT Exam ENT Exam: Normal Exam - Neck Exam Neck Exam: Normal Inspection - Respiratory Exam Respiratory Exam: Rhonchi Additional comments: Rhonchi at both bases. - Cardiovascular Exam Cardiovascular Exam: REGULAR RHYTHM - GI/Abdominal Exam GI & Abdominal Exam: Soft, Normal Bowel Sounds - Rectal Exam Rectal Exam: Deferred - Extremities Exam Extremities Exam: Normal Inspection - Back Exam Back Exam: NORMAL INSPECTION - Neurological Exam Neurological Exam: Alert, Awake - Psychiatric Exam Psychiatric exam: Anxious - Skin Skin Exam: Dry, Intact, Normal Color, Warm Assessment and Plan (1) Lower GI bleeding Assessment & Plan: Secondary to Rectal cancer. Status: Acute (2) Anemia Assessment & Plan: Secondary to rectal bleeding. Status: Acute (3) Pneumonia Assessment & Plan: IV antibiotics as per Dr Mcgregor. Status: Acute (4) Hyperkalemia Status: Resolved (5) Hyponatremia Status: Resolved (6) Acute diastolic (congestive) heart failure Status: Acute (7) Acute bacterial endocarditis Assessment & Plan: АЛЕКСАНДР can not be done now because of SOB from pneumonia, and because of acute NSTEMI. Status: Acute (8) Acute non-ST elevation myocardial infarction (NSTEMI) Assessment & Plan: Coronary angiogram cannot be done now because of SOB and aortic valve vegetations. Antiplatelets cannot be started because of rectal bleeding. Status: Acute
[2018-03-21 19:47] LABS: ABG ALLEN TEST POS; ARTERIAL BLOOD GAS HCO3 21.6 mmol/L (21-28); ARTERIAL BLOOD GAS O2 SAT 93.9 % (95-98); ARTERIAL BLOOD GAS PCO2 32 mm/Hg (35-45); ARTERIAL BLOOD GAS PO2 61 mm/Hg (80-100); ARTERIAL BLOOD GAS TCO2 20.8 mmol/L (22-28)
--- NOTE | 2018-03-21 20:21 | CP.PCM.CON ---
History of Present Illness - History of Present Illness History of Present Illness: Attending: Dr King Heme/Onc: Dr Watson Radio/Onc: Dr Meeks ID: Dr Mcgregor Reason for Consult: Evaluation for transfer to ICU Chief Complaint: SOB/Cannot breath The patient was seen and evaluated on the the telemetry unit 659B HPI: The Hx was obtained from the Nurse and after review of the Medical records. This consult is because the patient is in severe SOB. 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 Because of recurrent rectal bleed and low Hemoglobin he was sent to the ED on 03/18/18 for blood transfusion, and was admitted. He was transfused 2 units of PRBC on 03/20/18, [facility] called later that day for SOB which was treated. At present ton 3L Oxygen the saturation was 89% . A NRBM was placed and increased the SpO2 to 94%. The patient is in severe Distress using the accessory muscles of respiration claiming that he cannot breathe. He appears that he will tire out at this rate of breathing. He was given lasix 20mgIV. I will give 60mg more of Lasix and start on Bipap. PMH: Anemia; HTN; HLD; BPH; Rectal bleed; Adenocarcenoma of the rectum; Left eye blindness PSH: Hernia repair SH; Former Smoker; No illegal drug use; No alcohol; Live with family FH: State: No known family Hx Allergies: Aspirin Medication: Reviewed Review of Systems - Review of Systems Systems not reviewed;Unavailable: Respiratory Distress Review of Systems: Review of system is limited because of respiratory distress Past Patient History - Tetanus Immunizations Tetanus Immunization: Unknown - Past Medical History & Family History Past Medical History?: Yes - Past Social History Smoking Status: Former Smoker Chewing Tobacco Use: No Cigar Use: No Alcohol: None Home Situation {Lives}: With Family Domestic Violence: Negative - CARDIAC Hx Hypercholesterolemia: Yes Hx Hypertension: Yes - PULMONARY Hx Respiratory Disorders: No - NEUROLOGICAL Hx Neurological Disorder: No - HEENT Hx HEENT Problems: Yes 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 - GENITOURINARY/GYNECOLOGICAL Hx Genitourinary Disorders: No - PSYCHIATRIC Hx Substance Use: No - SURGICAL HISTORY Hx Surgeries: Yes Hx Herniorrhaphy: Yes (left) - ANESTHESIA Hx Anesthesia: Yes Hx Anesthesia Reactions: No Meds Allergies/Adverse Reactions: Allergies Allergy/AdvReac Type Severity Reaction Status Date / Time aspirin Allergy Verified 03/18/18 16:47 - Medications Medications: Current Medications Acetaminophen (Tylenol 325mg Tab) 650 mg PO Q4 PRN PRN Reason: Pain, Mild (1-3) Last Admin: 03/21/18 04:52 Dose: 650 mg Amlodipine Besylate (Norvasc) 10 mg PO DAILY [facility] Last Admin: 03/21/18 09:22 Dose: Not Given Ferrous Sulfate (Feosol) 325 mg PO TID [facility] Last Admin: 03/21/18 17:15 Dose: 325 mg Vancomycin/Sodium Chloride (Vancomycin 1 Gm/Ns 200 Ml) 1 gm in 200 mls @ 133.333 mls/hr IVPB Q12H [facility] PRN Reason: Protocol Last Admin: 03/21/18 14:18 Dose: 133.333 mls/hr Ceftriaxone Sodium 2 gm/ (Sodium Chloride) 100 mls @ 100 mls/hr IVPB Q12H [facility] PRN Reason: Protocol Last Admin: 03/21/18 17:00 Dose: 100 mls/hr Losartan Potassium (Cozaar) 100 mg PO DAILY [facility] Last Admin: 03/21/18 09:22 Dose: Not Given Tramadol HCl (Ultram) 50 mg PO Q6 PRN PRN Reason: Pain, moderate (4-7) Last Admin: 03/21/18 09:22 Dose: 50 mg Physical Exam - Constitutional Appears: In Acute Distress, Chronically Ill - Head Exam Head Exam: ATRAUMATIC, NORMAL INSPECTION, NORMOCEPHALIC - Eye Exam Eye Exam: EOMI, Normal appearance Pupil Exam: NORMAL ACCOMODATION - ENT Exam ENT Exam: Mucous Membranes Dry, Normal Exam, Normal External Ear Exam - Neck Exam Neck exam: Positive for: Full Rom, Normal Inspection. Negative for: Lymphadenopathy, Tenderness - Respiratory Exam Respiratory Exam: Accessory Muscle Use. absent: Rhonchi, Wheezes Additional comments: Decreased breath sounds at both lung field. - Cardiovascular Exam Cardiovascular Exam: REGULAR RHYTHM, RRR, +S1, +S2. absent: Gallop - GI/Abdominal Exam GI & Abdominal Exam: Normal Bowel Sounds, Soft. absent: Mass, Tenderness - Rectal Exam Rectal Exam: Deferred - Extremities Exam Extremities exam: Positive for: full ROM, normal inspection. Negative for: calf tenderness, pedal edema - Back Exam Back exam: NORMAL INSPECTION. absent: CVA tenderness (L), CVA tenderness (R) - Neurological Exam Neurological exam: CN II-XII Intact, Reflexes Normal Additional comments: Alert but in severe respiratory distress, could hardly speak. - Psychiatric Exam Psychiatric exam: Anxious - Skin Skin Exam: Intact, Normal Color, Warm Results - Vital Signs Recent Vital Signs: Last Vital Signs Temp 97.3 F L 03/21/18 15:00 Pulse 102 H 03/21/18 20:15 Resp 20 03/21/18 15:00 BP 118/53 L 03/21/18 15:00 Pulse Ox 94 L 03/21/18 15:00 - Labs Result Diagrams: 03/21/18 06:54 03/21/18 06:54 Labs: Laboratory Results - last 24 hr 03/21/18 03/21/18 03/21/18 06:54 06:54 19:45 WBC 13.8 H RBC 3.87 L Hgb 10.8 L Hct 32.6 L MCV 84.3 MCH 27.8 MCHC 33.0 RDW 17.4 H Plt Count 381 MPV 7.2 Neut % (Auto) 87.6 H Lymph % (Auto) 7.0 L Story % (Auto) 5.1 Eos % (Auto) 0.0 Baso % (Auto) 0.3 Neut # (Auto) 12.1 H Lymph # (Auto) 1.0 Story # (Auto) 0.7 Eos # (Auto) 0.0 Baso # (Auto) 0.0 Neutrophils % (Manual) 86 H Band Neutrophils % 1 Lymphocytes % (Manual) 8 L Monocytes % (Manual) 5 Platelet Estimate Normal Anisocytosis (manual) Slight Ovalocytes Slight Puncture Site Rba pCO2 32 L pO2 61 L HCO3 21.6 ABG pH 7.40 ABG Total CO2 20.8 L ABG O2 Saturation 93.9 L ABG Base Excess -4.0 L [place] Test Pos ABG Potassium 4.7 A-a O2 Difference 612.0 Respiratory Index 10.0 Glucose 171 H Lactate 2.8 H FiO2 100.0 Sodium 132 129.0 L Potassium 4.3 Chloride 102 100.0 Carbon Dioxide 24 Anion Gap 11 BUN 17 Creatinine 0.9 Est GFR ( Amer) > 60 Est GFR (Non-Af Amer) > 60 Random Glucose 150 H Calcium 8.1 L Magnesium 2.1 Total Bilirubin 0.5 AST 25 ALT 49 Alkaline Phosphatase 119 Troponin I 0.7400 H* Total Protein 6.0 L Albumin 2.6 L Globulin 3.4 Albumin/Globulin Ratio 0.7 L Arterial Blood Potassium 4.7 - Imaging and Cardiology ECHO 03/21/18 Status: Report reviewed by me Additional comment: Moderate Pulmonary Hypertension Moderate TR Mild MR, AR Aortic valve severely thickened. Cannot exclude aortic valvular vegetation. Systolic function mildly impaired ABG Status: Report reviewed by me Additional comment: 7.40// O2 Sat 93% on NRBM Assessment & Plan - Assessment and Plan (Free Text) Assessment: #. Hypoxic Respiratory failure #. Adenocarcinoma of the Rectum with lower GI bleed #. Anemia #. Pneumonia Plan: 67 years old [place] Male, recently diagnosed with Adencarcinoma of the rectum during his last admission March 05. admitted on 03/18/18 with rectal bleed and low Hemoglobin. He was transfused 2 units of PRBC on 03/20/18, [facility] called later that day for SOB which was treated. He is transferred to ICU today because of Severe Hypoxemia and Pending respiratory arrest. #. Hypoxic Respiratory failure with PO2 61 on NRBM. this is multifactorial, The bilateral Pleural effusion with infiltrate and probably CHF with Pulmonary hypertension - ABG: Ph 7.40/ - BIPAP I/E 14/6 FiO2 of 100% and Rate of 8 - Will Intubate if no improvement or if BIPAP is not recommended - Lasix 60mg IV Stat - Transfer to ICU - ABG after 1Hr - CXR #. Adenocarcinoma of the Rectum with lower GI bleed - Hem/Onc on consult - GI on Consult - Radiation/Onc on consult #. Anemia - Total of 2 units of PRBC transfused on 03/20/18 - Follow HB #. Pneumonia - Continue Antibiotics #. Gm +ve cocci Bacteremia Probable Vegetation on Aortic Valve - For АЛЕКСАНДР - Continue Vancomycin - Rocephin #. DVT Prophylaxis with SCD #. Code Status Full - Date & Time Date: 03/21/18 Time: 20:20
--- NOTE | 2018-03-21 21:12 | PCM.RRT ---
<Antonietta Abel - Last Filed: 03/21/18 21:11> MOLD PRESSER Nurses Assessment - Situation Date: 03/21/18 Time MOLD PRESSER was called: 19:40 MOLD PRESSER Responder Arrival Time:: 19:42 MOLD PRESSER Location:: Med/Surg Room Number: 659 B MOLD PRESSER Reason for Call: O2 Saturation below 90% MOLD PRESSER Called By: RN - IV IV Inserted during MOLD PRESSER?: No New IV Insertion Tolerance: Good - Respiratory MOLD PRESSER Delivery Method: Non Rebreather @% Oxygen Flow Rate: 100 Received Nebulizer Treatments: No Was the Patient Ventilated with Bag/Mask 100% O2?: No Secretions Suctioned?: No Was the Patient Intubated?: No Was the Patient Placed on a Ventilator?: No - Ventilator Settings FIO2 (% Oxygen): 100 - Medication Medications Administered During MOLD PRESSER: 19:42 Lasix 20mg. 19:47 Lasix 60mg - Diagnostic Test Ordered EKG: No Chest X-Ray: No CT Scan: No - Stat Labs Ordered MOLD PRESSER Stat Labs Ordered: ABG CPR started during MOLD PRESSER?: No - Vital Signs Vital Signs: Rapid Response Vital Sign Blood Pressure 160/70 Pulse Rate 120 Respiratory Rate 24 Temperature 98.3 F Oxygen Saturation 89 - [place] Coma Scale Coma Scale Eye Opening: Spontaneous Coma Scale Motor: Obeys Commands Movement Coma Scale Verbal: Oriented Coma Scale Total: 15 - Sepsis Screen Part 2 Sepsis Screen Part 2: Glucose elevated, Pt not on steroids - Time MOLD PRESSER Ended Time MOLD PRESSER Ended: 19:52 - Vital Signs at end of MOLD PRESSER Vital Signs at end of MOLD PRESSER: Rapid Response End Vital Sign Blood Pressure 146/55 Pulse Rate 121 Respiratory Rate 24 Temperature 98.3 F O2 Sat by Pulse Oximetry 95 - Recommendations Notifications: Attending Physician, Family or Designated Caregiver - Respiratory Oxygen Delivery Method: Non Rebreather @% Oxygen Flow Rate: 100 <Inder Santiago - Last Filed: 03/21/18 22:09> MOLD PRESSER Nurses Assessment - Vital Signs Vital Signs: Rapid Response Vital Sign Blood Pressure 160/70 Pulse Rate 120 Respiratory Rate 24 Temperature 98.3 F Oxygen Saturation 89 - Vital Signs at end of MOLD PRESSER Vital Signs at end of MOLD PRESSER: Rapid Response End Vital Sign Blood Pressure 146/55 Pulse Rate 121 Respiratory Rate 24 Temperature 98.3 F O2 Sat by Pulse Oximetry 95 Attending/Attestation - Attestation I have personally seen and examined this patient.: Yes I have fully participated in the care of the patient.: Yes I have reviewed all pertinent clinical information, including history, physical exam and plan: Yes Notes (Text): 03/21/18 22:03 I saw and examined this patient shoulder to shoulder with Dr Abel. 67 years old male with Recent Diagnosis of Rectal cancer and recurrent rectal bleed admitted on 03/18/18 and found to have bilateral pleural effusion and Pneumonia. transfused 2 units of PRBC on 03/20/18. Today desaturated on 3L oxygen with SpO2 of 89% and on NRBM SpO2 of 93-94%. A&P #. Hypoxic Respiratory Failure - ABG - BIPAP - Accu Check - Lasix 60mg IVP - Transfer to ICU Inder Santiago MD
[2018-03-21 21:59] LABS: ARTERIAL BLOOD GAS HCO3 22.8 mmol/L (21-28); ARTERIAL BLOOD GAS O2 SAT 98.9 % (95-98); ARTERIAL BLOOD GAS PCO2 30 mm/Hg (35-45); ARTERIAL BLOOD GAS PH 7.44 (7.35-7.45); ARTERIAL BLOOD GAS PO2 98 mm/Hg (80-100); ARTERIAL BLOOD GAS TCO2 21.3 mmol/L (22-28)
[2018-03-22] MEDS: Vancomycin 1 gm/NS 200 ml 1 GM/200 ML BAG IVPB SCH (01:30)
[2018-03-22 06:30] LABS: ALB/GLOB RATIO 0.7 (1.0-2.1); ALBUMIN 2.7 g/dL (3.5-5.0); ALT/SGPT 38 U/L (21-72); AST/SGOT 22 U/L (17-59); BASO # 0.1 K/uL (0.0-0.2); BASO % 0.3 % (0.0-2.0); BLOOD UREA NITROGEN 19 mg/dL (9-20); CALCIUM 7.9 mg/dl (8.6-10.4); EOS % 0.1 % (0.0-4.0); GFR NON-AFRICAN AMERICAN > 60; HEMOGLOBIN 11.1 g/dL (12.0-18.0); LYMPH # 1.2 K/uL (1.0-4.3); LYMPH % 7.5 % (20.0-40.0); MEAN CELL VOLUME 85.9 fL (80.0-94.0); MEAN CORPUSCULAR HEMOGLOBIN 27.9 pg (27.0-31.0); MEAN CORPUSCULAR HGB CONC 32.5 g/dL (33.0-37.0); MONO # 0.9 K/uL (0.0-0.8); MONO % 5.6 % (0.0-10.0); NEUT # 13.7 K/uL (1.8-7.0); NEUT % 86.5 % (50.0-75.0); NRBC % 0.1 % (0.0-2.0); PLATELET COUNT 313 K/uL (130-400); RBC 3.97 Mil/uL (4.40-5.90); RED CELL DISTRIBUTION WIDTH 17.6 % (11.5-14.5); WHITE BLOOD COUNT 15.9 K/uL (4.8-10.8)
[2018-03-22 06:34] LABS: ARTERIAL BLOOD GAS HCO3 23.5 mmol/L (21-28); ARTERIAL BLOOD GAS HEMOGLOBIN 10.9 g/dL (11.7-17.4); ARTERIAL BLOOD GAS O2 SAT 98.3 % (95-98); ARTERIAL BLOOD GAS PCO2 30 mm/Hg (35-45); ARTERIAL BLOOD GAS PH 7.46 (7.35-7.45); ARTERIAL BLOOD GAS PO2 85 mm/Hg (80-100); ARTERIAL BLOOD GAS TCO2 22.2 mmol/L (22-28)
[2018-03-22 06:43] LABS: SQUAMOUS EPITHIAL < 1 /hpf (0-5); URINE AMORPHOUS SEDIMENT OCC /ul (<OCC); URINE BACTERIA RARE (<OCC); URINE BILIRUBIN NEGATIVE (NEGATIVE); URINE BLOOD 1+ (NEGATIVE); URINE CLARITY Hazy (Clear); URINE COLOR Yellow (YELLOW); URINE GLUCOSE (UA) NORMAL (Normal); URINE LEUKOCYTE ESTERASE NEG Leu/uL (Negative); URINE PROTEIN NEGATIVE (NEGATIVE); URINE UROBILINOGEN NORMAL mg/dL (0.2-1.0)
[2018-03-22 08:25] LABS: LYMPHOCYTE 4 % (20-40); TOTAL CELLS COUNTED 100
[2018-03-22 08:26] LABS: ANISOCYTOSIS SLIGHT; HYPOCHROMIC SLIGHT; MONOCYTE 2 % (0-10); NEUTROPHIL 94 % (50-75); OVALOCYTES SLIGHT; PLATELET ESTIMATE NORMAL (NORMAL)
--- NOTE | 2018-03-22 08:56 | RAD ---
Date of service: 03/21/2018 HISTORY: SOB COMPARISON: Chest radiographs 03/21/2018 FINDINGS: LUNGS: Right greater left pleural effusions unchanged with underlying basilar airspace disease not excluded once again. No significant improvement in the interval. Mild pulmonary vascular congestion potentially increased somewhat. Trace fluid is seen in the minor fissure. No pneumothorax bilaterally. Cardiac size stable. PLEURA: As above. CARDIOVASCULAR: As above. OSSEOUS STRUCTURES: No significant abnormalities. VISUALIZED UPPER ABDOMEN: Normal. OTHER FINDINGS: None. IMPRESSION: Mild but potentially slightly increased pulmonary vascular congestion with no interval change in bilateral pleural effusions greater the right than left. Underlying bibasilar airspace disease remains difficult to exclude.
--- NOTE | 2018-03-22 10:57 | PCM.PROC ---
Procedures Attestation:: I certify that I have explained the specified Operation(s) or Procedure(s), risks, benefits and reasonable alternatives to the Patient and/or other person responsible. The opportunity was given to ask questions and all questions answered - Paracentesis Consent Obtained: written consent Time Out Performed: Yes Indication: other Procedure: therapeutic paracentesis Local Anesthetic Used: lidocaine 1%
--- NOTE | 2018-03-22 11:06 | RAD ---
Date of service: 03/22/2018 HISTORY: post thoracentesis COMPARISON: Portable chest 03/21/2018. FINDINGS: LUNGS: Improved aeration is appreciated bilaterally with improved CHF pattern suggested. Diminishing bilateral pleural effusions are identified bilaterally with significant residual noted at the left. None is seen at the right. Underlying airspace disease not excluded at the left greater than right lung bases. Cardiomediastinal silhouette appears stable. No pneumothorax bilaterally. PLEURA: As above. CARDIOVASCULAR: As above. OSSEOUS STRUCTURES: No significant abnormalities. VISUALIZED UPPER ABDOMEN: Normal. OTHER FINDINGS: None. IMPRESSION: Improved CHF with residual left pleural effusion noted. Underlying airspace disease at both bases is difficult to exclude but greater the left than right sides.
--- NOTE | 2018-03-22 11:07 | CP.PCM.PN ---
Subjective - Date & Time of Evaluation Date of Evaluation: 03/22/18 Time of Evaluation: 10:45 - Subjective Subjective: Patient toelrating bi-pap and was able to tolerate NC post thoracentesis Objective - Vital Signs/Intake and Output Vital Signs (last 24 hours): Temp Pulse Resp BP Pulse Ox 98.6 F 91 H 17 111/31 L 97 03/22/18 08:00 03/22/18 09:00 03/22/18 09:00 03/22/18 09:00 03/22/18 09:00 Intake and Output: 03/22/18 03/22/18 06:59 18:59 Intake Total 350 0 Output Total 825 80 Balance -475 -80 - Medications Medications: Current Medications Acetaminophen (Tylenol 325mg Tab) 650 mg PO Q4 PRN PRN Reason: Pain, Mild (1-3) Last Admin: 03/21/18 04:52 Dose: 650 mg Ferrous Sulfate (Feosol) 325 mg PO TID [facility] Last Admin: 03/22/18 10:42 Dose: Not Given Ceftriaxone Sodium 2 gm/ (Sodium Chloride) 100 mls @ 100 mls/hr IVPB Q12H [facility] PRN Reason: Protocol Last Admin: 03/22/18 04:30 Dose: 100 mls/hr Ampicillin 2 gm/ Sodium (Chloride) 100 mls @ 50 mls/hr IVPB Q6H [facility] PRN Reason: Protocol - Labs Labs: 03/22/18 06:11 03/22/18 06:11 PT 13.6 SECONDS (9.7-12.2) H 03/20/18 07:25 INR 1.2 03/20/18 07:25 APTT 32 SECONDS (21-34) D 03/20/18 07:25 - Head Exam Head Exam: ATRAUMATIC, NORMAL INSPECTION - Eye Exam Eye Exam: absent: Scleral icterus Additional comments: left eye, not reactive - Neck Exam Neck Exam: Full ROM - Respiratory Exam Respiratory Exam: Decreased Breath Sounds, Rales - Cardiovascular Exam Cardiovascular Exam: REGULAR RHYTHM, +S1, +S2, Murmur - GI/Abdominal Exam GI & Abdominal Exam: Normal Bowel Sounds - Extremities Exam Extremities Exam: Full ROM - Neurological Exam Neurological Exam: Alert, Awake, Oriented x3 - Skin Skin Exam: Normal Color Assessment and Plan - Assessment and Plan (Free Text) Assessment: Hypoxic respiratory failure: tolerated thoracentesis and was able to come off bi -pap, continue NC to keep Spo > 92 -Strep becteremia: fierro sensitive: de-escalate abx and complete abx as per ID -Pleural effusion: post thoracentesis lungs much better -NSTEMI: continue statin and av estelle jacy as per cardiology, contrasindicated for antiplatelet in light of rectal bleeding -rectal bleeding: no active bleeding, continue to monitor -d/c chavarria -continue dvt/pud ppx Patient remains hemodynamically stable.
[2018-03-22 11:22] LABS: BODY FLUID TYPE PLEURAL
[2018-03-22 12:12] LABS: BF GROSS APPEARANCE CLEAR (CLEAR)
[2018-03-22 12:13] LABS: BODY FLUID MONO/MACROPHAGE 4 % (0-0)
[2018-03-22] MEDS: AMPicillin 2 GM in Sodium Chloride 100 ML IVPB SCH ×3 (12:13→23:15)
--- NOTE | 2018-03-22 13:28 | CP.PCM.PN ---
Subjective - Date & Time of Evaluation Date of Evaluation: 03/22/18 Time of Evaluation: 13:27 - Subjective Subjective: Patient to ICU last night because of severe SOB. Satanta much better this AM after a Right thoracentesis which removed 1.5 L of fluid. Objective - Vital Signs/Intake and Output Vital Signs (last 24 hours): Temp Pulse Resp BP Pulse Ox 97.9 F 98 H 20 105/35 L 91 L 03/22/18 12:00 03/22/18 13:00 03/22/18 13:00 03/22/18 13:00 03/22/18 13:00 Intake and Output: 03/22/18 03/22/18 06:59 18:59 Intake Total 350 200 Output Total 825 90 Balance -475 110 - Medications Medications: Current Medications Acetaminophen (Tylenol 325mg Tab) 650 mg PO Q4 PRN PRN Reason: Pain, Mild (1-3) Last Admin: 03/21/18 04:52 Dose: 650 mg Ferrous Sulfate (Feosol) 325 mg PO TID [facility] Last Admin: 03/22/18 13:00 Dose: 325 mg Ceftriaxone Sodium 2 gm/ (Sodium Chloride) 100 mls @ 100 mls/hr IVPB Q12H [facility] PRN Reason: Protocol Last Admin: 03/22/18 04:30 Dose: 100 mls/hr Ampicillin 2 gm/ Sodium (Chloride) 100 mls @ 50 mls/hr IVPB Q6H [facility] PRN Reason: Protocol Last Admin: 03/22/18 12:13 Dose: 50 mls/hr - Labs Labs: 03/22/18 06:11 03/22/18 06:11 PT 13.6 SECONDS (9.7-12.2) H 03/20/18 07:25 INR 1.2 03/20/18 07:25 APTT 32 SECONDS (21-34) D 03/20/18 07:25 - Constitutional Appears: No Acute Distress, Chronically Ill - Head Exam Head Exam: NORMOCEPHALIC - Eye Exam Eye Exam: Normal appearance Pupil Exam: NORMAL ACCOMODATION - ENT Exam ENT Exam: Normal Exam - Neck Exam Neck Exam: Normal Inspection - Respiratory Exam Respiratory Exam: Rhonchi Additional comments: Rhonchi both bases. - Cardiovascular Exam Cardiovascular Exam: REGULAR RHYTHM - GI/Abdominal Exam GI & Abdominal Exam: Soft, Normal Bowel Sounds - Rectal Exam Rectal Exam: Deferred - Neurological Exam Neurological Exam: Alert, Awake, Oriented x3 - Psychiatric Exam Psychiatric exam: Anxious - Skin Skin Exam: Dry, Intact, Normal Color Assessment and Plan (1) Lower GI bleeding Assessment & Plan: From a rectal adenocarcinoma. Status: Acute (2) Anemia Assessment & Plan: From rectal bleeding. Status: Acute (3) Pneumonia Assessment & Plan: On IV antibiotics. Status: Acute (4) Hyperkalemia Status: Resolved (5) Hyponatremia Status: Resolved (6) Acute diastolic (congestive) heart failure Status: Resolved (7) Acute bacterial endocarditis Assessment & Plan: On antibiotics. Status: Acute (8) Acute non-ST elevation myocardial infarction (NSTEMI) Assessment & Plan: Stable sofar. No chest pain. Status: Acute
[2018-03-22] MEDS ORDERED: Iohexol 300 100 ML IJ ONE (22:30)
[2018-03-23 04:00] LABS: BASO # 0.1 K/uL (0.0-0.2); BASO % 0.3 % (0.0-2.0); HEMOGLOBIN 11.2 g/dL (12.0-18.0); LYMPH # 1.1 K/uL (1.0-4.3); LYMPH % 6.2 % (20.0-40.0); MEAN CELL VOLUME 84.7 fL (80.0-94.0); MEAN CORPUSCULAR HEMOGLOBIN 28.4 pg (27.0-31.0); MEAN CORPUSCULAR HGB CONC 33.5 g/dL (33.0-37.0); MEAN PLATELET VOLUME 8.8 fL (7.2-11.7); MONO # 0.8 K/uL (0.0-0.8); MONO % 4.3 % (0.0-10.0); NEUT # 15.7 K/uL (1.8-7.0); NEUT % 89.2 % (50.0-75.0); PLATELET COUNT 396 K/uL (130-400); RBC 3.96 Mil/uL (4.40-5.90); WHITE BLOOD COUNT 17.6 K/uL (4.8-10.8)
[2018-03-23 04:56] LABS: BASOPHIL 1 % (0-2); LYMPHOCYTE 7 % (20-40); MONOCYTE 4 % (0-10); NEUTROPHIL 88 % (50-75); PLATELET ESTIMATE NORMAL (NORMAL); TOTAL CELLS COUNTED 100
[2018-03-23] MEDS: AMPicillin 2 GM in Sodium Chloride 100 ML IVPB SCH ×2 (05:00→12:00)
--- NOTE | 2018-03-23 10:23 | CT ---
Date of service: 03/22/2018 PROCEDURE: CT Chest with contrast (Pulmonary Angiogram) HISTORY: r/o PE COMPARISON: None available. TECHNIQUE: Axial computed tomography images were obtained of the chest in the pulmonary arterial phase of enhancement. Coronal and sagittal reformatted images were created and reviewed. Intravenous contrast dose: Visipaque 320, 100 cc Radiation dose: Total exam DLP = 285.97 mGy-cm. This CT exam was performed using one or more of the following dose reduction techniques: Automated exposure control, adjustment of the mA and/or kV according to patient size, and/or use of iterative reconstruction technique. FINDINGS: PULMONARY ARTERIES: Limitations: Respiratory motion at the bases. Unremarkable. No pulmonary embolism. AORTA: No acute findings. No thoracic aortic aneurysm. LUNGS: Minimal right upper lobe infiltrates. Prior right lower lobe nodule obscured by infiltrate. Extensive right lower lobe airspace disease with compression atelectasis at the bilateral lower lobes. PLEURAL SPACES: Mild right pleural effusion. Moderate left pleural effusion identified. Pneumothorax bilaterally. Cardiomegaly noted. Thoracic inlet unremarkable once again. HEART: Unremarkable. No cardiomegaly. No significant pericardial effusion. LYMPH NODES: No lymphadenopathy. BONES, CHEST WALL: Unremarkable. No fracture or destructive lesion OTHER FINDINGS: Unremarkable. IMPRESSION: 1. No pulmonary embolus identified by standard CT criteria. 2. Motion artifacts distort the lung bases bilaterally. 3. Interval prominent right lower lobe infiltrate with compression atelectasis the bilateral lower lobes caused by mild right and moderate left pleural effusions. 4. Stable cardiomegaly.
--- NOTE | 2018-03-23 11:06 | CP.CCUPN ---
CCU Subjective - Physician Review Subjective (Free Text): 03/23/18 13:01 Patient seen and examined at bedside in the ICU. Currently awake and alert, on BiPAP. Reports feeling better, but concerned about possible fluid remaining on the left side of his lungs. Reports breathing well with Bipap. Overnight, due to desaturations, concern for possible PE was raised, but CT angio was negative for PE; was instead notable for mild right and moderate left pleural effusions with compression atelectasis. No current chest pain, sensation of dyspnea or inability to catch breath, no near-syncope/syncope sensation. CCU Objective - Vital Signs / Intake & Output Vital Signs (Last 4 hours): Vital Signs Pulse BP 03/23/18 10:51 117/40 L 03/23/18 07:25 97 H Intake and Output (Last 8hrs): Intake & Output 03/22/18 03/23/18 03/23/18 22:59 06:59 14:59 Intake Total 420 300 0 Output Total 100 500 20 Balance 320 -200 -20 Weight 68.492 kg Intake: Intake, IV Amount 200 300 0 Right Forearm 0 Right Hand 200 300 Oral 220 0 Output: Urine 100 500 20 Urethral (Thompson) 20 Urine, Voided 100 500 0 Stool 0 Emesis 0 Other: # Voids Urine, Voided 5 # Bowel Movements 0 - Physical Exam Head: Positive for: Atraumatic, Normocephalic Pupils: Positive for: Non-Reactive (left eye unreactive) Extroacular Muscles: Positive for: Other (left eyeball with upward gaze deviation, blind in left eye, but R eye visual simpson grossly intact) Conjunctiva: Positive for: Normal. Negative for: Injected, Icteric Mouth: Positive for: Moist Mucous Membranes, Other (wearing Bipap mask) Pharnyx: Positive for: Other (unable to assess due to bipap mask) Nose (External): Positive for: Atraumatic. Negative for: Abrasion, Contusion, Laceration Neck: Positive for: Normal Range of Motion, Trachea Midline. Negative for: Lymphadenopathy Respiratory/Chest: Positive for: Good Air Exchange, Decreased Breath Sounds ( mildly decreased breath sounds at bilateral bases), Rales (mild bibasilar rales) . Negative for: Respiratory Distress, Wheezes, Rhonchi, Tachypneic, Tender to Palpation Cardiovascular: Positive for: Regular Rate and Rhythm, Normal S1, S2, Peripheal Pulses Present (+2 radials bilaterally). Negative for: Murmurs, Irregular Rhythm, Tachycardic, Bradycardic Abdomen: Positive for: Normal Bowel Sounds. Negative for: Tenderness, Distention, Rebound, Guarding, Mass/Organomegaly Upper Extremity: Positive for: Normal Inspection, NORMAL PULSES (+2 radials). Negative for: Cyanosis, Edema, Tenderness, Swelling, Erythema Lower Extremity: Positive for: Normal Inspection, NORMAL PULSES (+2 dorsalis pedis bilaterally). Negative for: Edema, CALF TENDERNESS, Cyanosis, Tenderness , Swelling, Erythema Neurological: Positive for: GCS=15, Speech Normal (muffled 2/2 Bipap mask, but otherwise normal speech, speech content normal) Skin: Positive for: Warm, Dry, Normal Color. Negative for: Rashes Other physical findings (Free Text): awake and alert, appropriate mood, able to answer all questions appropriately - Medications Active Medications: Active Medications Generic Name Dose Route Start Last Admin Trade Name Freq PRN Reason Stop Dose Admin Acetaminophen 650 mg 03/19/18 12:00 03/21/18 04:52 Tylenol 325mg Tab PO 650 mg Q4 PRN Administration Pain, Mild (1-3) Albuterol/Ipratropium 3 ml 03/23/18 10:00 Duoneb 3 Mg/0.5 Mg (3 Ml) Ud INH RQ8 ISABEL Ferrous Sulfate 325 mg 03/19/18 10:00 03/23/18 10:51 Feosol PO 325 mg TID ISABEL Administration Ceftriaxone Sodium 2 gm/ 100 mls @ 100 mls/hr 03/21/18 16:00 03/23/18 03:55 Sodium Chloride IVPB 100 mls/hr Q12H ISABEL Administration Protocol Ampicillin 2 gm/ Sodium 100 mls @ 50 mls/hr 03/22/18 12:00 03/23/18 05:00 Chloride IVPB 50 mls/hr Q6H ISABEL Administration Protocol Pantoprazole Sodium 40 mg 03/23/18 10:00 03/23/18 10:51 Protonix Inj IVP 40 mg DAILY ISABEL Administration - Patient Studies Lab Studies: Microbiology Studies 03/21/18 Unknown MRSA Culture (Admit) - Final Nose MRSA NOT DETECTED 03/18/18 19:15 Blood Culture - Final Blood-Venous Streptococcus Viridans Gram Stain - Final 03/18/18 19:00 S.aureus & Coag-Neg Staph PNA FISH - Final Blood-Venous Blood Culture - Final Streptococcus Viridans Gram Stain - Final Lab Studies 03/23/18 03/23/18 03/22/18 Range/Units 03:56 03:56 11:20 WBC 17.6 H (4.8-10.8) K/uL RBC 3.96 L (4.40-5.90) Mil/uL Hgb 11.2 L (12.0-18.0) g/dL Hct 33.5 L (35.0-51.0) % MCV 84.7 (80.0-94.0) fL MCH 28.4 (27.0-31.0) pg MCHC 33.5 (33.0-37.0) g/dL RDW 18.0 H (11.5-14.5) % Plt Count 396 (130-400) K/uL MPV 8.8 (7.2-11.7) fL Neut % (Auto) 89.2 H (50.0-75.0) % Lymph % (Auto) 6.2 L (20.0-40.0) % [place] % (Auto) 4.3 (0.0-10.0) % Eos % (Auto) 0.0 (0.0-4.0) % Baso % (Auto) 0.3 (0.0-2.0) % Neut # (Auto) 15.7 H (1.8-7.0) K/uL Lymph # (Auto) 1.1 (1.0-4.3) K/uL [place] # (Auto) 0.8 (0.0-0.8) K/uL Eos # (Auto) 0.0 (0.0-0.7) K/uL Baso # (Auto) 0.1 (0.0-0.2) K/uL Neutrophils % (Manual) 88 H (50-75) % Lymphocytes % (Manual) 7 L (20-40) % Monocytes % (Manual) 4 (0-10) % Basophils % (Manual) 1 (0-2) % Platelet Estimate Normal (NORMAL) Lactic Acid 1.6 (0.7-2.1) mmol/L Fluid Source Fluid Appearance (CLEAR) Fluid WBC (0.0-300.0) /mm3 Fluid RBC (0.0-0.0) /mm3 Fluid Tot Cell Count Fluid Neutrophils (0-0) % Fluid Lymphocytes (0-0) % Fld Monocyte/Macrophag (0-0) % Fluid Comment Pleural pH 8.0 08/25/18 Range/Units 11:20 WBC (4.8-10.8) K/uL RBC (4.40-5.90) Mil/uL Hgb (12.0-18.0) g/dL Hct (35.0-51.0) % MCV (80.0-94.0) fL MCH (27.0-31.0) pg MCHC (33.0-37.0) g/dL RDW (11.5-14.5) % Plt Count (130-400) K/uL MPV (7.2-11.7) fL Neut % (Auto) (50.0-75.0) % Lymph % (Auto) (20.0-40.0) % [place] % (Auto) (0.0-10.0) % Eos % (Auto) (0.0-4.0) % Baso % (Auto) (0.0-2.0) % Neut # (Auto) (1.8-7.0) K/uL Lymph # (Auto) (1.0-4.3) K/uL [place] # (Auto) (0.0-0.8) K/uL Eos # (Auto) (0.0-0.7) K/uL Baso # (Auto) (0.0-0.2) K/uL Neutrophils % (Manual) (50-75) % Lymphocytes % (Manual) (20-40) % Monocytes % (Manual) (0-10) % Basophils % (Manual) (0-2) % Platelet Estimate (NORMAL) Lactic Acid (0.7-2.1) mmol/L Fluid Source Pleural Fluid Appearance Clear (CLEAR) Fluid WBC 380.0 H (0.0-300.0) /mm3 Fluid RBC 613.0 H (0.0-0.0) /mm3 Fluid Tot Cell Count TEST NOT PERFORMED Fluid Neutrophils 62.0 H (0-0) % Fluid Lymphocytes 34.0 H (0-0) % Fld Monocyte/Macrophag 4 H (0-0) % Fluid Comment Pleural pH Laboratory Results - last 24 hr 03/22/18 03/22/18 03/23/18 11:20 11:20 03:56 WBC 17.6 H RBC 3.96 L Hgb 11.2 L Hct 33.5 L MCV 84.7 MCH 28.4 MCHC 33.5 RDW 18.0 H Plt Count 396 MPV 8.8 Neut % (Auto) 89.2 H Lymph % (Auto) 6.2 L [place] % (Auto) 4.3 Eos % (Auto) 0.0 Baso % (Auto) 0.3 Neut # (Auto) 15.7 H Lymph # (Auto) 1.1 [place] # (Auto) 0.8 Eos # (Auto) 0.0 Baso # (Auto) 0.1 Neutrophils % (Manual) 88 H Lymphocytes % (Manual) 7 L Monocytes % (Manual) 4 Basophils % (Manual) 1 Platelet Estimate Normal Lactic Acid Fluid Source Pleural Fluid Appearance Clear Fluid WBC 380.0 H Fluid RBC 613.0 H Fluid Tot Cell Count TEST NOT PERFORMED Fluid Neutrophils 62.0 H Fluid Lymphocytes 34.0 H Fld Monocyte/Macrophag 4 H Fluid Comment Pleural pH 8.0 03/23/18 03:56 WBC RBC Hgb Hct MCV MCH MCHC RDW Plt Count MPV Neut % (Auto) Lymph % (Auto) [place] % (Auto) Eos % (Auto) Baso % (Auto) Neut # (Auto) Lymph # (Auto) [place] # (Auto) Eos # (Auto) Baso # (Auto) Neutrophils % (Manual) Lymphocytes % (Manual) Monocytes % (Manual) Basophils % (Manual) Platelet Estimate Lactic Acid 1.6 Fluid Source Fluid Appearance Fluid WBC Fluid RBC Fluid Tot Cell Count Fluid Neutrophils Fluid Lymphocytes Fld Monocyte/Macrophag Fluid Comment Pleural pH Fingerstick Blood Sugar Results: 174 Review of Systems - Review of Systems All systems: reviewed and no additional remarkable complaints except (as per subjective) Critical Care Progress Note - Nutrition Nutrition: Nutrition Category Date Time Status Regular Diet [DIET] Diets 03/19/18 Dinner Active Assessment/Plan - Assessment and Plan (Free Text) Assessment: This is a 67 yo M with PMH of 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 He was accepted to ICU respiratory distress with concerning for pending respiratory failure. He is s/p right-sided thoracentesis, 1.5L removed, now stable on BiPAP and satting well. Plan: Neuro: -awake and alert -maintain normothermia -no acute issue present Pulm: -On Bipap at 14/6/14/70%, satting well -maintain SaO2 > 92% -Reviewed overnight CTA chest, reviewed AM CXR; decreased R-sided pleural effusion, but persisting R sided atelectasis, and L effusion with atelectasis remains present -At this time, will defer on L-sided thoracentesis, will continue with Bipap, give Lasix 20mg IV x1, start Nebs q8 isabel, and continue to monitor -Encourage Incentive spirometer when off Bipap -Continue Rocephin/Ampicillin as per ID Cardio: -Hemodynamically stable, maintaining MAP > 65, no indications for pressor support at this time -anemia likely anemia of chronic disease, continue iron supplement -no active bleeding reported at this time, Hgb stable at 11.2, no further transfusions indicated at this time -Echo 03/21: EF 41%, grade-1 abnormal relaxation patter on transmitral doppler, severely thickened aortic valve, cannot exclude aortic valve vegitation -Increasing trop from 03/20-03/21, concerning for NSTEMI; not currently on AC due to concern for bleeding GI: -soft diet -daily protonix for GI ppx -GI signed off, recs radiation course as planned with Rad-onc Renal: -Cr holding steady (was 0.8 yesterday) -Making approx 800cc urine daily -Giving Lasix 20mg IV x1 for pleural effusions, monitoring output to determine if sufficient output after lasix or if more needed Heme: -Hgb 11.2, stable, no indication for transfusion at this time -No AC at this time due to concern for bleeding, given rectal bleeding on presentation; SCDs for DVT ppx -Heme-onc following; continue radiation therapy, can start Xeloda as outpatient ID: -WBCs increased to 17.6, but afebrile -Strep Viridans bacteremia, blood cultures positive x2 -ID following, appreciate all recs; concerning for endocarditis given echo findings and strep bacteremia; previously on Rocephin/Vanco, now on Rocephin/ Ampicillin Endo: -maintain euglycemia Dispo: ICU, continue BiPAP and IV antibiotics, pending improvement of bilateral pleural effusions with compressive atelectasis, pending trial of IV Lasix 20mg x1 FEN: soft diet Access: Peripheral IVs Consults: ID, Heme-onc, GI Ppx: Protonix for GI, SCDs for DVT (avoid AC given previous active rectal bleed requiring blood transfusions) Code Status: Full Code Seen, reviewed, and discussed with attending, Dr. Sharpe
--- NOTE | 2018-03-23 12:58 | RAD ---
Date of service: 03/23/2018 HISTORY: pleural effusion COMPARISON: Portable chest 03/22/2018. FINDINGS: LUNGS: Increasing patchy density seen the right base suspicious for developing atelectasis or pneumonia. No interval change in left basilar airspace disease. PLEURA: Limited left pleural effusion diminished. Right pleural effusion appears minimal, blunting the right costophrenic sulcus. No pneumothorax bilaterally. CARDIOVASCULAR: Further improvement in CHF with only a limited cephalization remaining. Cardiac size stable. OSSEOUS STRUCTURES: No significant abnormalities. VISUALIZED UPPER ABDOMEN: Normal. OTHER FINDINGS: None. IMPRESSION: Further reduction CHF however developing airspace disease seen at the right base and is stable at the left base. Diminished left pleural effusion. Trace right pleural effusion present in the interval.
[2018-03-23] MEDS: Albuterol-Ipratrop 3 mg / 0.5 (3 ml) UD INH SCH ×2 (16:33→23:54)
[2018-03-24 06:30] LABS: BASO # 0.1 K/uL (0.0-0.2); BASO % 0.4 % (0.0-2.0); LYMPH # 1.1 K/uL (1.0-4.3); LYMPH % 7.4 % (20.0-40.0); MEAN CELL VOLUME 85.5 fL (80.0-94.0); MEAN CORPUSCULAR HEMOGLOBIN 28.2 pg (27.0-31.0); MEAN CORPUSCULAR HGB CONC 32.9 g/dL (33.0-37.0); MEAN PLATELET VOLUME 7.3 fL (7.2-11.7); MONO # 0.7 K/uL (0.0-0.8); MONO % 4.6 % (0.0-10.0); NEUT # 12.5 K/uL (1.8-7.0); NEUT % 87.6 % (50.0-75.0); PLATELET COUNT 359 K/uL (130-400); RBC 3.89 Mil/uL (4.40-5.90); RED CELL DISTRIBUTION WIDTH 17.5 % (11.5-14.5); WHITE BLOOD COUNT 14.2 K/uL (4.8-10.8)
[2018-03-24 06:44] LABS: BLOOD UREA NITROGEN 26 mg/dL (9-20); CALCIUM 8.3 mg/dl (8.6-10.4); GFR NON-AFRICAN AMERICAN > 60
[2018-03-24] MEDS: Albuterol-Ipratrop 3 mg / 0.5 (3 ml) UD INH SCH ×2 (08:00→19:31)
[2018-03-24 08:33] LABS: LYMPHOCYTE 7 % (20-40); MONOCYTE 2 % (0-10); NEUTROPHIL 91 % (50-75); TOTAL CELLS COUNTED 100
[2018-03-24 08:34] LABS: ANISOCYTOSIS SLIGHT; HYPOCHROMIC SLIGHT; OVALOCYTES SLIGHT; PLATELET ESTIMATE NORMAL (NORMAL); POLYCHROMIC SLIGHT
--- NOTE | 2018-03-24 10:37 | RAD ---
Date of service: 03/24/2018 HISTORY: pneumonia COMPARISON: 03/23/2018 FINDINGS: LUNGS: Persistent extensive bibasilar PLEURA: Opacity. Probable small left pleural effusion. No evidence of right pleural effusion. No pneumothorax. CARDIOVASCULAR: Normal. OSSEOUS STRUCTURES: No significant abnormalities. VISUALIZED UPPER ABDOMEN: Normal. OTHER FINDINGS: None. IMPRESSION: Persistent extensive bibasilar opacity and probable small left pleural effusion.
--- NOTE | 2018-03-24 11:41 | PCM.PROC ---
Procedures Attestation:: I certify that I have explained the specified Operation(s) or Procedure(s), risks, benefits and reasonable alternatives to the Patient and/or other person responsible. The opportunity was given to ask questions and all questions answered - Paracentesis Consent Obtained: verbal consent, written consent (The patient was prepped and draped in a sterile manner using chlorhexidine scrub after the appropriate level was percussed and confirmed by ultrasound. 1% lidocaine was used to anesthesize the skin, subcutaneous tissue, superior aspect of the rib periosteum and parietal pleura. A finder needle was then introduced over the superior aspect of the rib to locate the pleural fluid; A scalpel was used to sheri the skin at the insertion site. The thoracentesis needle was then introduced through the skin incision into the pleural space using negative pressure. 860ml clear yellow fluid was removed without difficulty. The catheter was then removed. No immediate complications were noted during the procedure. A post-procedure chest x-ray is pending at the time of this note. The fluid will be sent for studies. Estimated blood loss is 0ml.) Time Out Performed: Yes Indication: other (L sided Pleural effusion ) Procedure: therapeutic paracentesis (L sided Therapeutic Thoracentesis) Local Anesthetic Used: lidocaine 1%
--- NOTE | 2018-03-24 11:48 | RAD ---
Date of service: 03/24/2018 HISTORY: s/p thoracentesis COMPARISON: 03/24/2018 at 9:33 a.m. FINDINGS: LUNGS: Opacity at right base, possible pneumonia. Followup to clearing to exclude underlying mass. Minimal left basilar opacity. Vague opacities in both upper lobes as well. PLEURA: Minimal blunting of left costophrenic angle. Possible small pleural effusion. No pneumothorax. Extent of left pleural effusion has decreased since earlier examination likely due to interval thoracentesis. CARDIOVASCULAR: Normal. OSSEOUS STRUCTURES: No significant abnormalities. VISUALIZED UPPER ABDOMEN: Normal. OTHER FINDINGS: None. IMPRESSION: Bibasilar opacity right greater than left. Minimal bilateral upper lobe opacity as well. Minimal left pleural effusion decreased from prior. No pneumothorax.
--- NOTE | 2018-03-24 12:07 | CP.CCUPN ---
CCU Subjective - Physician Review Subjective (Free Text): Critical Care Progress Note: Patient seen and examined at bedside. No acute events overnight. Patient was on high flow oxygen and was switched over to Bipap this morning. A left sided thoracentesis was performed and he tolerated the procedure well. No other complaints. CCU Objective - Vital Signs / Intake & Output Intake and Output (Last 8hrs): Intake & Output 03/23/18 03/24/18 03/24/18 22:59 06:59 14:59 Intake Total 440 0 Output Total 660 560 Balance -220 -560 Weight 136 lb Intake: Intake, IV Amount 200 Right Forearm 200 Oral 240 0 Output: Urine 660 560 Urine, Voided 660 560 Stool 0 0 Emesis 0 0 - Physical Exam Head: Positive for: Atraumatic, Normocephalic Pupils: Positive for: PERRL Extroacular Muscles: Positive for: Other (left eyeball with upward gaze deviation, blind in left eye, but R eye visual simpson grossly intact) Conjunctiva: Positive for: Normal. Negative for: Injected, Icteric Mouth: Positive for: Moist Mucous Membranes Nose (External): Positive for: Atraumatic. Negative for: Abrasion, Contusion, Laceration Neck: Positive for: Normal Range of Motion, Trachea Midline. Negative for: Lymphadenopathy Respiratory/Chest: Positive for: Good Air Exchange, Decreased Breath Sounds ( mildly decreased breath sounds at bilateral bases), Rales (bases ). Negative for: Respiratory Distress, Wheezes, Rhonchi, Tachypneic, Tender to Palpation Cardiovascular: Positive for: Regular Rate and Rhythm, Normal S1, S2. Negative for: Murmurs, Irregular Rhythm, Tachycardic, Bradycardic Abdomen: Positive for: Normal Bowel Sounds. Negative for: Tenderness, Distention, Rebound, Guarding, Mass/Organomegaly Upper Extremity: Positive for: Normal Inspection, NORMAL PULSES (+2 radials). Negative for: Cyanosis, Edema, Tenderness, Swelling, Erythema Lower Extremity: Positive for: Normal Inspection, NORMAL PULSES (+2 dorsalis pedis bilaterally). Negative for: Edema, CALF TENDERNESS, Cyanosis, Tenderness , Swelling, Erythema Neurological: Positive for: GCS=15, Speech Normal (muffled 2/2 Bipap mask, but otherwise normal speech, speech content normal) Skin: Positive for: Warm, Dry, Normal Color. Negative for: Rashes Psychiatric: Positive for: Oriented x 3 - Medications Active Medications: Active Medications Generic Name Dose Route Start Last Admin Trade Name Freq PRN Reason Stop Dose Admin Acetaminophen 650 mg 03/19/18 12:00 03/21/18 04:52 Tylenol 325mg Tab PO 650 mg Q4 PRN Administration Pain, Mild (1-3) Albuterol/Ipratropium 3 ml 03/24/18 14:00 Duoneb 3 Mg/0.5 Mg (3 Ml) Ud INH RQ6 ANIYAH Ferrous Sulfate 325 mg 03/19/18 10:00 03/23/18 17:57 Feosol PO 325 mg TID ANIYAH Administration Ceftriaxone Sodium 2 gm/ 100 mls @ 100 mls/hr 03/21/18 16:00 03/24/18 03:58 Sodium Chloride IVPB 100 mls/hr Q12H ANIYAH Administration Protocol Pantoprazole Sodium 40 mg 03/23/18 10:00 03/23/18 10:51 Protonix Inj IVP 40 mg DAILY ANIYAH Administration - Patient Studies Lab Studies: Microbiology Studies 03/21/18 Unknown Urine Culture - Final Urine,Thompson No Growth (<1,000 CFU/ML) 03/21/18 Unknown MRSA Culture (Admit) - Final Nose MRSA NOT DETECTED Lab Studies 03/24/18 03/24/18 03/22/18 Range/Units 06:24 06:24 11:25 WBC 14.2 H (4.8-10.8) K/uL RBC 3.89 L (4.40-5.90) Mil/uL Hgb 11.0 L (12.0-18.0) g/dL Hct 33.3 L (35.0-51.0) % MCV 85.5 (80.0-94.0) fL MCH 28.2 (27.0-31.0) pg MCHC 32.9 L (33.0-37.0) g/dL RDW 17.5 H (11.5-14.5) % Plt Count 359 (130-400) K/uL MPV 7.3 (7.2-11.7) fL Neut % (Auto) 87.6 H (50.0-75.0) % Lymph % (Auto) 7.4 L (20.0-40.0) % [place] % (Auto) 4.6 (0.0-10.0) % Eos % (Auto) 0.0 (0.0-4.0) % Baso % (Auto) 0.4 (0.0-2.0) % Neut # (Auto) 12.5 H (1.8-7.0) K/uL Lymph # (Auto) 1.1 (1.0-4.3) K/uL [place] # (Auto) 0.7 (0.0-0.8) K/uL Eos # (Auto) 0.0 (0.0-0.7) K/uL Baso # (Auto) 0.1 (0.0-0.2) K/uL Neutrophils % (Manual) 91 H (50-75) % Lymphocytes % (Manual) 7 L (20-40) % Monocytes % (Manual) 2 (0-10) % Platelet Estimate Normal (NORMAL) Polychromasia Slight Hypochromasia (manual) Slight Anisocytosis (manual) Slight Ovalocytes Slight Sodium 134 (132-148) mmol/L Potassium 4.4 (3.6-5.2) mmol/L Chloride 102 (98-107) mmol/L Carbon Dioxide 24 (22-30) mmol/L Anion Gap 13 (10-20) BUN 26 H (9-20) mg/dL Creatinine 0.9 (0.8-1.5) mg/dL Est GFR ( Amer) > 60 Est GFR (Non-Af Amer) > 60 Random Glucose 140 H (75-110) mg/dL Calcium 8.3 L (8.6-10.4) mg/dl Pleur Adenosine Deamin TNP Laboratory Results - last 24 hr 03/22/18 03/24/18 03/24/18 11:25 06:24 06:24 WBC 14.2 H RBC 3.89 L Hgb 11.0 L Hct 33.3 L MCV 85.5 MCH 28.2 MCHC 32.9 L RDW 17.5 H Plt Count 359 MPV 7.3 Neut % (Auto) 87.6 H Lymph % (Auto) 7.4 L [place] % (Auto) 4.6 Eos % (Auto) 0.0 Baso % (Auto) 0.4 Neut # (Auto) 12.5 H Lymph # (Auto) 1.1 [place] # (Auto) 0.7 Eos # (Auto) 0.0 Baso # (Auto) 0.1 Neutrophils % (Manual) 91 H Lymphocytes % (Manual) 7 L Monocytes % (Manual) 2 Platelet Estimate Normal Polychromasia Slight Hypochromasia (manual) Slight Anisocytosis (manual) Slight Ovalocytes Slight Sodium 134 Potassium 4.4 Chloride 102 Carbon Dioxide 24 Anion Gap 13 BUN 26 H Creatinine 0.9 Est GFR ( Amer) > 60 Est GFR (Non-Af Amer) > 60 Random Glucose 140 H Calcium 8.3 L Pleur Adenosine Deamin TNP Fingerstick Blood Sugar Results: 174 Review of Systems - Review of Systems All systems: reviewed and no additional remarkable complaints except Critical Care Progress Note - Nutrition Nutrition: Nutrition Category Date Time Status Regular Diet [DIET] Diets 03/19/18 Dinner Active Assessment/Plan - Assessment and Plan (Free Text) Assessment: 67 yo M with PMH of 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 s/p right-sided thoracentesis, 1.5L removed, and L sided thoracentesis today, 860ml removed. Neuro: -awake and alert -maintain normothermia Pulm: -On Bipap at 12/6/50%, sating well -maintain SaO2 > 92% -Encourage Incentive spirometer when off Bipap Cardio: -Hemodynamically stable, -maintaining MAP > 65, -no indications for pressor support at this time -Echo 03/21: EF 41%, grade-1 abnormal relaxation patter on transmitral doppler, severely thickened aortic valve, cannot exclude aortic valve vegitation -Increasing trop from 03/20-03/21, concerning for NSTEMI; not currently on AC due to concern for bleeding GI: -soft diet -daily protonix for GI ppx -GI signed off, recs radiation course as planned with Rad-onc Renal: -Cr holding steady -Making approx 800cc urine daily -Giving Lasix 20mg IV x1 for pleural effusions, monitoring output to determine if sufficient output after lasix or if more needed Heme: -Monitor H/H -No AC at this time due to concern for bleeding, given rectal bleeding on presentation; SCDs for DVT ppx -Heme-onc following; continue radiation therapy, can start Xeloda as outpatient ID: -WBCs dec 17.6--> 14.2, afebrile -Strep Viridans bacteremia, blood cultures positive x2 -ID following, appreciate all recs; Cont on Rocephin Endo: -maintain euglycemia Dispo: ICU, continue BiPAP and IV antibiotics, pending improvement of bilateral pleural effusions with compressive atelectasis, pending trial of IV Lasix 20mg x1 FEN: soft diet Access: Peripheral IVs Consults: ID, Heme-onc, GI Ppx: Protonix for GI, SCDs for DVT (avoid AC given previous active rectal bleed requiring blood transfusions) Code Status: Full Code Case and plan was reviewed, and discussed with attending, Dr. Sharpe
[2018-03-24 12:08] LABS: BODY FLUID TYPE PLEURAL/THORACENTESI
[2018-03-24 13:01] LABS: BF GROSS APPEARANCE SL CLOUDY (CLEAR)
[2018-03-24 13:02] LABS: BODY FLUID MONO/MACROPHAGE 3 % (0-0); BODY FLUID TOTAL COUNT 100 (0-0)
--- NOTE | 2018-03-24 14:35 | US ---
Limited left roni thorax ultrasound History: Pleural effusion. Comparison: X-ray dated 03/24/2018 Technique: Limited left roni thorax ultrasound was performed. Findings: Left pleural effusion was localized. Impression: Limited ultrasound for localization of the left pleural effusion.
--- NOTE | 2018-03-24 17:16 | CP.PCM.PN ---
Subjective - Date & Time of Evaluation Date of Evaluation: 03/24/18 Time of Evaluation: 17:15 - Subjective Subjective: dictated Objective - Vital Signs/Intake and Output Vital Signs (last 24 hours): Temp Pulse Resp BP Pulse Ox 97.9 F 107 H 21 119/39 L 90 L 03/24/18 12:00 03/24/18 13:00 03/24/18 13:00 03/24/18 13:00 03/24/18 13:00 Intake and Output: 03/24/18 03/24/18 06:59 18:59 Intake Total 240 340 Output Total 880 850 Balance -640 510 - Medications Medications: Current Medications Acetaminophen (Tylenol 325mg Tab) 650 mg PO Q4 PRN PRN Reason: Pain, Mild (1-3) Last Admin: 03/21/18 04:52 Dose: 650 mg Albuterol/Ipratropium (Duoneb 3 Mg/0.5 Mg (3 Ml) Ud) 3 ml INH RQ6 ANIYAH Ferrous Sulfate (Feosol) 325 mg PO TID ANIYAH Last Admin: 03/23/18 17:57 Dose: 325 mg Ceftriaxone Sodium 2 gm/ (Sodium Chloride) 100 mls @ 100 mls/hr IVPB Q12H ANIYAH PRN Reason: Protocol Last Admin: 03/24/18 03:58 Dose: 100 mls/hr Pantoprazole Sodium (Protonix Inj) 40 mg IVP DAILY [facility] Last Admin: 03/23/18 10:51 Dose: 40 mg - Labs Labs: 03/24/18 06:24 03/24/18 06:24 PT 13.6 SECONDS (9.7-12.2) H 03/20/18 07:25 INR 1.2 03/20/18 07:25 APTT 32 SECONDS (21-34) D 03/20/18 07:25
--- NOTE | 2018-03-24 23:45 | CP.PCM.PN ---
Subjective - Date & Time of Evaluation Date of Evaluation: 03/24/18 Time of Evaluation: 13:00 - Subjective Subjective: Patient breathes better after the left thoracentesis. Afebrile.On IV antibiotics. Objective - Vital Signs/Intake and Output Vital Signs (last 24 hours): Temp Pulse Resp BP Pulse Ox 98.5 F 106 H 25 H 128/44 L 93 L 03/24/18 20:00 03/24/18 22:00 03/24/18 22:00 03/24/18 22:00 03/24/18 22:00 Intake and Output: 03/24/18 03/25/18 18:59 06:59 Intake Total 460 0 Output Total 850 Balance -390 0 - Medications Medications: Current Medications Acetaminophen (Tylenol 325mg Tab) 650 mg PO Q4 PRN PRN Reason: Pain, Mild (1-3) Last Admin: 03/21/18 04:52 Dose: 650 mg Albuterol/Ipratropium (Duoneb 3 Mg/0.5 Mg (3 Ml) Ud) 3 ml INH RQ6 ANIYAH Last Admin: 03/24/18 19:31 Dose: 3 ml Ferrous Sulfate (Feosol) 325 mg PO TID ANIYAH Last Admin: 03/24/18 18:25 Dose: 325 mg Ceftriaxone Sodium 2 gm/ (Sodium Chloride) 100 mls @ 100 mls/hr IVPB Q12H ANIYAH PRN Reason: Protocol Last Admin: 03/24/18 16:30 Dose: 100 mls/hr Pantoprazole Sodium (Protonix Inj) 40 mg IVP DAILY [facility] Last Admin: 03/24/18 15:29 Dose: 40 mg - Labs Labs: 03/24/18 06:24 03/24/18 06:24 PT 13.6 SECONDS (9.7-12.2) H 03/20/18 07:25 INR 1.2 03/20/18 07:25 APTT 32 SECONDS (21-34) D 03/20/18 07:25 - Constitutional Appears: No Acute Distress, Chronically Ill - Head Exam Head Exam: NORMAL INSPECTION - Eye Exam Eye Exam: Normal appearance Pupil Exam: NORMAL ACCOMODATION Additional comments: Left eye blindness. - ENT Exam ENT Exam: Normal Exam Additional comments: Left maxillary cyst. - Respiratory Exam Respiratory Exam: Rhonchi Additional comments: Rhonchi at both bases. - Cardiovascular Exam Cardiovascular Exam: REGULAR RHYTHM - GI/Abdominal Exam GI & Abdominal Exam: Soft, Normal Bowel Sounds - Rectal Exam Rectal Exam: Deferred - Extremities Exam Extremities Exam: Normal Inspection - Back Exam Back Exam: NORMAL INSPECTION - Neurological Exam Neurological Exam: Alert, Awake, Oriented x3 - Psychiatric Exam Psychiatric exam: Anxious - Skin Skin Exam: Dry, Intact Assessment and Plan (1) Lower GI bleeding Assessment & Plan: From a rectal cancer. Status: Acute (2) Anemia Assessment & Plan: Secondary to rectal bleeding. Status: Acute (3) Pneumonia Assessment & Plan: With bilateral pleural effusion. S/p bilateral thoracentesis. Status: Acute (4) Hyperkalemia Status: Resolved (5) Hyponatremia Status: Resolved (6) Acute diastolic (congestive) heart failure Status: Resolved (7) Acute bacterial endocarditis Assessment & Plan: Blood culture grew Strep Viridans sensitive to Rocephin. Status: Acute (8) Acute non-ST elevation myocardial infarction (NSTEMI) Status: Acute
--- NOTE | 2018-03-25 01:04 | PN ---
Copied To: Shari Miller MD Attending MD: Shari Miller MD INFECTIOUS DISEASE FOLLOWUP DATE: 03/24/2018 SUBJECTIVE: This patient was seen today. The patient remains on oxygen and he was having mild respiratory distress. He was coughing a lot when he was trying to talk. I saw the critical care note that he had a left-sided thoracocentesis done. I am covering for Dr. Mcgregor, hence I saw the patient today. PHYSICAL EXAMINATION: VITAL SIGNS: Show T-max is 98.5, pulse 98, blood pressure 112/37, respirations are 25. GENERAL: He was awake, alert, able to communicate. HEENT: He has dentures present. Left eye, he has blindness and he has this graft. He said he had myeloma, melanoma before. NECK: Supple. LUNGS: Have coarse breath sounds. HEART: S1, S2 are regular. ABDOMEN: Soft, nontender. No guarding, no rigidity present. EXTREMITIES: Have no edema. LABORATORY DATA: Labs are noted. His labs show white count of 14.2, hemoglobin 11, hematocrit is 33.3, platelet count is 359. His chemistry was noted. Chemistry showed BUN is 26, creatinine 0.9, that was unremarkable. Blood cultures were positive for Streptococcus viridans and it was sensitive to Rocephin. He is on 2 g every 12 hours of Rocephin, which is a high-dose Rocephin at this time. His echo showed some thickening of the aortic valve, so he will also need АЛЕКСАНДР. His chest x-ray was done on 03/24/2018, showed bibasilar opacities, right greater than left. Minimal bilateral upper lobe opacity, left pleural effusion decreased from the prior. No pneumothorax, so at this time he has Staph viridans septicemia with pneumonia, respiratory, and he has cardiac issues. We need to exclude the aortic valve vegetation and his creatinine is holding; however, his white count still is elevated. We will follow. Shari Miller MD
[2018-03-25] MEDS: Albuterol-Ipratrop 3 mg / 0.5 (3 ml) UD INH SCH ×4 (01:11→19:31)
[2018-03-25 06:09] LABS: BASO # 0.1 K/uL (0.0-0.2); HEMOGLOBIN 10.6 g/dL (12.0-18.0); LYMPH # 1.1 K/uL (1.0-4.3); LYMPH % 9.6 % (20.0-40.0); MEAN CELL VOLUME 85.5 fL (80.0-94.0); MEAN CORPUSCULAR HEMOGLOBIN 28.2 pg (27.0-31.0); MEAN PLATELET VOLUME 7.6 fL (7.2-11.7); MONO # 0.5 K/uL (0.0-0.8); MONO % 4.6 % (0.0-10.0); NEUT # 9.9 K/uL (1.8-7.0); NEUT % 84.8 % (50.0-75.0); PLATELET COUNT 352 K/uL (130-400); RBC 3.77 Mil/uL (4.40-5.90); RED CELL DISTRIBUTION WIDTH 17.8 % (11.5-14.5); WHITE BLOOD COUNT 11.6 K/uL (4.8-10.8)
[2018-03-25 06:25] LABS: ALB/GLOB RATIO 0.8 (1.0-2.1); ALBUMIN 2.6 g/dL (3.5-5.0); ALT/SGPT 33 U/L (21-72); AST/SGOT 29 U/L (17-59); BLOOD UREA NITROGEN 26 mg/dL (9-20); CALCIUM 7.9 mg/dl (8.6-10.4); GFR NON-AFRICAN AMERICAN > 60
[2018-03-25 08:23] LABS: LYMPHOCYTE 8 % (20-40); MONOCYTE 4 % (0-10); NEUTROPHIL 88 % (50-75); PLATELET ESTIMATE NORMAL (NORMAL); TOTAL CELLS COUNTED 100
[2018-03-25 08:24] LABS: ANISOCYTOSIS SLIGHT
--- NOTE | 2018-03-25 10:57 | CP.CCUPN ---
<Luis Bolaños - Last Filed: 03/25/18 11:59> CCU Subjective - Physician Review Subjective (Free Text): Critical Care Progress Note: Patient seen and examined at bedside. No acute events overnight. Patient is doing well on high flow oxygen saturating 97%. Patient complains of being weak. No other complaints. 03/25/18 10:48 CCU Objective - Vital Signs / Intake & Output Vital Signs (Last 4 hours): Vital Signs Temp Pulse Resp BP Pulse Ox 03/25/18 10:00 100 H 22 127/40 L 94 L 03/25/18 09:29 96 H 21 94 L 03/25/18 09:00 99 H 22 119/40 L 99 03/25/18 08:10 23 03/25/18 08:00 98.2 F 97 H 20 129/40 L 95 Intake and Output (Last 8hrs): Intake & Output 03/24/18 03/25/18 03/25/18 22:59 06:59 14:59 Intake Total 120 150 50 Output Total 400 Balance 120 -250 50 Intake: Intake, IV Amount 100 100 Right Forearm 100 100 Oral 20 50 50 Output: Urine 400 Straight 400 Other: # Voids Urine, Voided 100 - Physical Exam Head: Positive for: Atraumatic, Normocephalic Pupils: Positive for: PERRL Extroacular Muscles: Positive for: Other (left eyeball with upward gaze deviation, blind in left eye, but R eye visual simpson grossly intact) Conjunctiva: Positive for: Normal. Negative for: Injected, Icteric Mouth: Positive for: Moist Mucous Membranes Pharnyx: Positive for: Other (unable to assess due to bipap mask) Nose (External): Positive for: Atraumatic. Negative for: Abrasion, Contusion, Laceration Neck: Positive for: Normal Range of Motion, Trachea Midline. Negative for: Lymphadenopathy Respiratory/Chest: Positive for: Good Air Exchange, Decreased Breath Sounds ( mildly decreased breath sounds at bilateral bases), Rales (bases ). Negative for: Respiratory Distress, Wheezes, Rhonchi, Tachypneic, Tender to Palpation Cardiovascular: Positive for: Regular Rate and Rhythm, Normal S1, S2. Negative for: Murmurs, Irregular Rhythm, Tachycardic, Bradycardic Abdomen: Positive for: Normal Bowel Sounds. Negative for: Tenderness, Distention, Rebound, Guarding, Mass/Organomegaly Upper Extremity: Positive for: Normal Inspection, NORMAL PULSES (+2 radials). Negative for: Cyanosis, Edema, Tenderness, Swelling, Erythema Lower Extremity: Positive for: Normal Inspection, NORMAL PULSES (+2 dorsalis pedis bilaterally). Negative for: Edema, CALF TENDERNESS, Cyanosis, Tenderness , Swelling, Erythema Neurological: Positive for: GCS=15, Speech Normal (muffled 2/2 Bipap mask, but otherwise normal speech, speech content normal) Skin: Positive for: Warm, Dry, Normal Color. Negative for: Rashes Psychiatric: Positive for: Oriented x 3 - Medications Active Medications: Active Medications Generic Name Dose Route Start Last Admin Trade Name Freq PRN Reason Stop Dose Admin Acetaminophen 650 mg 03/19/18 12:00 03/21/18 04:52 Tylenol 325mg Tab PO 650 mg Q4 PRN Administration Pain, Mild (1-3) Albuterol/Ipratropium 3 ml 03/24/18 14:00 03/25/18 08:09 Duoneb 3 Mg/0.5 Mg (3 Ml) Ud INH 3 ml RQ6 ANIYAH Administration Ferrous Sulfate 325 mg 03/19/18 10:00 03/25/18 09:05 Feosol PO 325 mg TID ANIYAH Administration Ceftriaxone Sodium 2 gm/ 100 mls @ 100 mls/hr 03/21/18 16:00 03/25/18 03:45 Sodium Chloride IVPB 100 mls/hr Q12H ANIYAH Administration Protocol Pantoprazole Sodium 40 mg 03/23/18 10:00 03/25/18 09:05 Protonix Inj IVP 40 mg DAILY ANIYAH Administration - Patient Studies Lab Studies: Lab Studies 03/25/18 03/25/18 03/24/18 Range/Units 05:57 05:57 12:06 WBC 11.6 H (4.8-10.8) K/uL RBC 3.77 L (4.40-5.90) Mil/uL Hgb 10.6 L (12.0-18.0) g/dL Hct 32.2 L (35.0-51.0) % MCV 85.5 (80.0-94.0) fL MCH 28.2 (27.0-31.0) pg MCHC 33.0 (33.0-37.0) g/dL RDW 17.8 H (11.5-14.5) % Plt Count 352 (130-400) K/uL MPV 7.6 (7.2-11.7) fL Neut % (Auto) 84.8 H (50.0-75.0) % Lymph % (Auto) 9.6 L (20.0-40.0) % [place] % (Auto) 4.6 (0.0-10.0) % Eos % (Auto) 0.0 (0.0-4.0) % Baso % (Auto) 1.0 (0.0-2.0) % Neut # (Auto) 9.9 H (1.8-7.0) K/uL Lymph # (Auto) 1.1 (1.0-4.3) K/uL [place] # (Auto) 0.5 (0.0-0.8) K/uL Eos # (Auto) 0.0 (0.0-0.7) K/uL Baso # (Auto) 0.1 (0.0-0.2) K/uL Neutrophils % (Manual) 88 H (50-75) % Lymphocytes % (Manual) 8 L (20-40) % Monocytes % (Manual) 4 (0-10) % Platelet Estimate Normal (NORMAL) Anisocytosis (manual) Slight Sodium 136 (132-148) mmol/L Potassium 4.4 (3.6-5.2) mmol/L Chloride 103 (98-107) mmol/L Carbon Dioxide 29 (22-30) mmol/L Anion Gap 9 L (10-20) BUN 26 H (9-20) mg/dL Creatinine 0.9 (0.8-1.5) mg/dL Est GFR ( Amer) > 60 Est GFR (Non-Af Amer) > 60 Random Glucose 132 H (75-110) mg/dL Calcium 7.9 L (8.6-10.4) mg/dl Phosphorus 3.9 (2.5-4.5) mg/dL Magnesium 2.2 (1.6-2.3) mg/dL Total Bilirubin 0.4 (0.2-1.3) mg/dL AST 29 (17-59) U/L ALT 33 (21-72) U/L Alkaline Phosphatase 83 (38-126) U/L Total Protein 6.0 L (6.3-8.3) g/dL Albumin 2.6 L (3.5-5.0) g/dL Globulin 3.4 (2.2-3.9) gm/dL Albumin/Globulin Ratio 0.8 L (1.0-2.1) Fluid Source Fluid Appearance (CLEAR) Fluid WBC (0.0-300.0) /mm3 Fluid RBC (0.0-0.0) /mm3 Fluid Tot Cell Count (0-0) Fluid Neutrophils (0-0) % Fluid Lymphocytes (0-0) % Fld Monocyte/Macrophag (0-0) % Fluid Comment Pleural pH 8.0 08//18 Range/Units 12:06 WBC (4.8-10.8) K/uL RBC (4.40-5.90) Mil/uL Hgb (12.0-18.0) g/dL Hct (35.0-51.0) % MCV (80.0-94.0) fL MCH (27.0-31.0) pg MCHC (33.0-37.0) g/dL RDW (11.5-14.5) % Plt Count (130-400) K/uL MPV (7.2-11.7) fL Neut % (Auto) (50.0-75.0) % Lymph % (Auto) (20.0-40.0) % [place] % (Auto) (0.0-10.0) % Eos % (Auto) (0.0-4.0) % Baso % (Auto) (0.0-2.0) % Neut # (Auto) (1.8-7.0) K/uL Lymph # (Auto) (1.0-4.3) K/uL [place] # (Auto) (0.0-0.8) K/uL Eos # (Auto) (0.0-0.7) K/uL Baso # (Auto) (0.0-0.2) K/uL Neutrophils % (Manual) (50-75) % Lymphocytes % (Manual) (20-40) % Monocytes % (Manual) (0-10) % Platelet Estimate (NORMAL) Anisocytosis (manual) Sodium (132-148) mmol/L Potassium (3.6-5.2) mmol/L Chloride (98-107) mmol/L Carbon Dioxide (22-30) mmol/L Anion Gap (10-20) BUN (9-20) mg/dL Creatinine (0.8-1.5) mg/dL Est GFR ( Amer) Est GFR (Non-Af Amer) Random Glucose (75-110) mg/dL Calcium (8.6-10.4) mg/dl Phosphorus (2.5-4.5) mg/dL Magnesium (1.6-2.3) mg/dL Total Bilirubin (0.2-1.3) mg/dL AST (17-59) U/L ALT (21-72) U/L Alkaline Phosphatase (38-126) U/L Total Protein (6.3-8.3) g/dL Albumin (3.5-5.0) g/dL Globulin (2.2-3.9) gm/dL Albumin/Globulin Ratio (1.0-2.1) Fluid Source Pleural/thoracentesi Fluid Appearance Sl cloudy (CLEAR) Fluid WBC 215.0 (0.0-300.0) /mm3 Fluid RBC 460.0 H (0.0-0.0) /mm3 Fluid Tot Cell Count 100 H (0-0) Fluid Neutrophils 76.0 H (0-0) % Fluid Lymphocytes 21.0 H (0-0) % Fld Monocyte/Macrophag 3 H (0-0) % Fluid Comment Pleural pH Laboratory Results - last 24 hr 03/24/18 03/24/18 03/25/18 12:06 12:06 05:57 WBC 11.6 H RBC 3.77 L Hgb 10.6 L Hct 32.2 L MCV 85.5 MCH 28.2 MCHC 33.0 RDW 17.8 H Plt Count 352 MPV 7.6 Neut % (Auto) 84.8 H Lymph % (Auto) 9.6 L [place] % (Auto) 4.6 Eos % (Auto) 0.0 Baso % (Auto) 1.0 Neut # (Auto) 9.9 H Lymph # (Auto) 1.1 [place] # (Auto) 0.5 Eos # (Auto) 0.0 Baso # (Auto) 0.1 Neutrophils % (Manual) 88 H Lymphocytes % (Manual) 8 L Monocytes % (Manual) 4 Platelet Estimate Normal Anisocytosis (manual) Slight Sodium Potassium Chloride Carbon Dioxide Anion Gap BUN Creatinine Est GFR ( Amer) Est GFR (Non-Af Amer) Random Glucose Calcium Phosphorus Magnesium Total Bilirubin AST ALT Alkaline Phosphatase Total Protein Albumin Globulin Albumin/Globulin Ratio Fluid Source Pleural/thoracentesi Fluid Appearance Sl cloudy Fluid WBC 215.0 Fluid RBC 460.0 H Fluid Tot Cell Count 100 H Fluid Neutrophils 76.0 H Fluid Lymphocytes 21.0 H Fld Monocyte/Macrophag 3 H Fluid Comment Pleural pH 8.0 03/25/18 05:57 WBC RBC Hgb Hct MCV MCH MCHC RDW Plt Count MPV Neut % (Auto) Lymph % (Auto) [place] % (Auto) Eos % (Auto) Baso % (Auto) Neut # (Auto) Lymph # (Auto) [place] # (Auto) Eos # (Auto) Baso # (Auto) Neutrophils % (Manual) Lymphocytes % (Manual) Monocytes % (Manual) Platelet Estimate Anisocytosis (manual) Sodium 136 Potassium 4.4 Chloride 103 Carbon Dioxide 29 Anion Gap 9 L BUN 26 H Creatinine 0.9 Est GFR ( Amer) > 60 Est GFR (Non-Af Amer) > 60 Random Glucose 132 H Calcium 7.9 L Phosphorus 3.9 Magnesium 2.2 Total Bilirubin 0.4 AST 29 ALT 33 Alkaline Phosphatase 83 Total Protein 6.0 L Albumin 2.6 L Globulin 3.4 Albumin/Globulin Ratio 0.8 L Fluid Source Fluid Appearance Fluid WBC Fluid RBC Fluid Tot Cell Count Fluid Neutrophils Fluid Lymphocytes Fld Monocyte/Macrophag Fluid Comment Pleural pH Fingerstick Blood Sugar Results: 174 Critical Care Progress Note - Nutrition Nutrition: Nutrition Category Date Time Status Regular Diet [DIET] Diets 03/19/18 Dinner Active Assessment/Plan - Assessment and Plan (Free Text) Assessment: 67 yo M with PMH of 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 s/p right-sided thoracentesis, 1.5L removed, and L sided thoracentesis today, 860ml removed. Follow up repeat CT chest w/o contrast. Neuro: -awake and alert Pulm: -repeat CT chest w/o contrast ordered -F/u septic work up including mycoplasma -On high flow oxygen, 100% at 20L -maintain SaO2 > 92% -Encourage Incentive spirometer Cardio: -Hemodynamically stable -Cardiology consulted for possible АЛЕКСАНДР to r/o any aortic vegetations, (echo showed aortic valve thickening) -maintaining MAP > 65, -Echo 03/21: EF 41%, grade-1 abnormal relaxation patter on transmitral doppler, severely thickened aortic valve, cannot exclude aortic valve vegitation -Increasing trop from 03/20-03/21, concerning for NSTEMI; not currently on AC due to concern for bleeding GI: -soft diet -daily protonix for GI ppx -GI signed off, recs radiation course as planned with Rad-onc Renal: -monitor I and O - replete electrolytes as needed Heme: -Monitor H/H -No AC at this time due to concern for bleeding, given rectal bleeding on presentation; SCDs for DVT ppx -Heme-onc following; continue radiation therapy, can start Xeloda as outpatient ID: -F/u septic work up including mycoplasma -Follow up repeat blood cx -WBCs jun 14.2--> 11.6, afebrile -Strep Viridans bacteremia, blood cultures positive x2 -ID following, appreciate all recs; Cont on Rocephin Endo: -maintain euglycemia Case and plan was reviewed, and discussed with attending, Dr. Alarcon. <Nael Alarcon S - Last Filed: 03/25/18 17:00> CCU Subjective - Physician Review Critical Care Time Spent (in minutes): 30 CCU Objective - Vital Signs / Intake & Output Vital Signs (Last 4 hours): Vital Signs Pulse Resp BP Pulse Ox 03/25/18 15:59 23 03/25/18 15:10 106 H 23 115/43 L 95 03/25/18 15:00 108 H 24 94 L 03/25/18 14:10 107 H 25 H 125/44 L 91 L 03/25/18 14:00 115 H 25 H 92 L 03/25/18 13:10 104 H 24 125/44 L 94 L 03/25/18 13:00 102 H 25 H 93 L Intake and Output (Last 8hrs): Intake & Output 03/25/18 03/25/18 03/25/18 06:59 14:59 22:59 Intake Total 150 230 0 Output Total 400 Balance -250 230 0 Intake: Intake, IV Amount 100 Right Forearm 100 Oral 50 230 0 Output: Urine 400 Straight 400 - Medications Active Medications: Active Medications Generic Name Dose Route Start Last Admin Trade Name Freq PRN Reason Stop Dose Admin Acetaminophen 650 mg 03/19/18 12:00 03/21/18 04:52 Tylenol 325mg Tab PO 650 mg Q4 PRN Administration Pain, Mild (1-3) Albumin Human 12.5 gm 03/25/18 22:00 Albumin Human 25% (12.5 Gm/50 Ml) IV 03/26/18 14:01 Q8 ANIYAH Albuterol/Ipratropium 3 ml 03/24/18 14:00 03/25/18 13:37 Duoneb 3 Mg/0.5 Mg (3 Ml) Ud INH 3 ml RQ6 ANIYAH Administration Ferrous Sulfate 325 mg 03/19/18 10:00 03/25/18 15:42 Feosol PO 325 mg TID ANIYAH Administration Ceftriaxone Sodium 2 gm/ 100 mls @ 100 mls/hr 03/21/18 16:00 03/25/18 16:02 Sodium Chloride IVPB 100 mls/hr Q12H ANIYAH Administration Protocol Pantoprazole Sodium 40 mg 03/23/18 10:00 03/25/18 09:05 Protonix Inj IVP 40 mg DAILY ANIYAH Administration - Patient Studies Lab Studies: Lab Studies 03/25/18 03/25/18 03/25/18 Range/Units 12:12 05:57 05:57 WBC 11.6 H (4.8-10.8) K/uL RBC 3.77 L (4.40-5.90) Mil/uL Hgb 10.6 L (12.0-18.0) g/dL Hct 32.2 L (35.0-51.0) % MCV 85.5 (80.0-94.0) fL MCH 28.2 (27.0-31.0) pg MCHC 33.0 (33.0-37.0) g/dL RDW 17.8 H (11.5-14.5) % Plt Count 352 (130-400) K/uL MPV 7.6 (7.2-11.7) fL Neut % (Auto) 84.8 H (50.0-75.0) % Lymph % (Auto) 9.6 L (20.0-40.0) % [place] % (Auto) 4.6 (0.0-10.0) % Eos % (Auto) 0.0 (0.0-4.0) % Baso % (Auto) 1.0 (0.0-2.0) % Neut # (Auto) 9.9 H (1.8-7.0) K/uL Lymph # (Auto) 1.1 (1.0-4.3) K/uL [place] # (Auto) 0.5 (0.0-0.8) K/uL Eos # (Auto) 0.0 (0.0-0.7) K/uL Baso # (Auto) 0.1 (0.0-0.2) K/uL Neutrophils % (Manual) 88 H (50-75) % Lymphocytes % (Manual) 8 L (20-40) % Monocytes % (Manual) 4 (0-10) % Platelet Estimate Normal (NORMAL) Anisocytosis (manual) Slight Sodium 136 (132-148) mmol/L Potassium 4.4 (3.6-5.2) mmol/L Chloride 103 (98-107) mmol/L Carbon Dioxide 29 (22-30) mmol/L Anion Gap 9 L (10-20) BUN 26 H (9-20) mg/dL Creatinine 0.9 (0.8-1.5) mg/dL Est GFR ( Amer) > 60 Est GFR (Non-Af Amer) > 60 Random Glucose 132 H (75-110) mg/dL Calcium 7.9 L (8.6-10.4) mg/dl Phosphorus 3.9 (2.5-4.5) mg/dL Magnesium 2.2 (1.6-2.3) mg/dL Total Bilirubin 0.4 (0.2-1.3) mg/dL AST 29 (17-59) U/L ALT 33 (21-72) U/L Alkaline Phosphatase 83 (38-126) U/L Total Protein 6.0 L (6.3-8.3) g/dL Albumin 2.6 L (3.5-5.0) g/dL Globulin 3.4 (2.2-3.9) gm/dL Albumin/Globulin Ratio 0.8 L (1.0-2.1) Pleural pH Ur L.pneumophila Ag Negative (NEGATIVE) Mycoplasma pneumon IgM Negative (NEGATIVE) 03/24/18 Range/Units 12:06 WBC (4.8-10.8) K/uL RBC (4.40-5.90) Mil/uL Hgb (12.0-18.0) g/dL Hct (35.0-51.0) % MCV (80.0-94.0) fL MCH (27.0-31.0) pg MCHC (33.0-37.0) g/dL RDW (11.5-14.5) % Plt Count (130-400) K/uL MPV (7.2-11.7) fL Neut % (Auto) (50.0-75.0) % Lymph % (Auto) (20.0-40.0) % [place] % (Auto) (0.0-10.0) % Eos % (Auto) (0.0-4.0) % Baso % (Auto) (0.0-2.0) % Neut # (Auto) (1.8-7.0) K/uL Lymph # (Auto) (1.0-4.3) K/uL [place] # (Auto) (0.0-0.8) K/uL Eos # (Auto) (0.0-0.7) K/uL Baso # (Auto) (0.0-0.2) K/uL Neutrophils % (Manual) (50-75) % Lymphocytes % (Manual) (20-40) % Monocytes % (Manual) (0-10) % Platelet Estimate (NORMAL) Anisocytosis (manual) Sodium (132-148) mmol/L Potassium (3.6-5.2) mmol/L Chloride (98-107) mmol/L Carbon Dioxide (22-30) mmol/L Anion Gap (10-20) BUN (9-20) mg/dL Creatinine (0.8-1.5) mg/dL Est GFR ( Amer) Est GFR (Non-Af Amer) Random Glucose (75-110) mg/dL Calcium (8.6-10.4) mg/dl Phosphorus (2.5-4.5) mg/dL Magnesium (1.6-2.3) mg/dL Total Bilirubin (0.2-1.3) mg/dL AST (17-59) U/L ALT (21-72) U/L Alkaline Phosphatase (38-126) U/L Total Protein (6.3-8.3) g/dL Albumin (3.5-5.0) g/dL Globulin (2.2-3.9) gm/dL Albumin/Globulin Ratio (1.0-2.1) Pleural pH 8.0 Ur L.pneumophila Ag (NEGATIVE) Mycoplasma pneumon IgM (NEGATIVE) Laboratory Results - last 24 hr 03/24/18 03/25/18 03/25/18 12:06 05:57 05:57 WBC 11.6 H RBC 3.77 L Hgb 10.6 L Hct 32.2 L MCV 85.5 MCH 28.2 MCHC 33.0 RDW 17.8 H Plt Count 352 MPV 7.6 Neut % (Auto) 84.8 H Lymph % (Auto) 9.6 L [place] % (Auto) 4.6 Eos % (Auto) 0.0 Baso % (Auto) 1.0 Neut # (Auto) 9.9 H Lymph # (Auto) 1.1 [place] # (Auto) 0.5 Eos # (Auto) 0.0 Baso # (Auto) 0.1 Neutrophils % (Manual) 88 H Lymphocytes % (Manual) 8 L Monocytes % (Manual) 4 Platelet Estimate Normal Anisocytosis (manual) Slight Sodium 136 Potassium 4.4 Chloride 103 Carbon Dioxide 29 Anion Gap 9 L BUN 26 H Creatinine 0.9 Est GFR ( Amer) > 60 Est GFR (Non-Af Amer) > 60 Random Glucose 132 H Calcium 7.9 L Phosphorus 3.9 Magnesium 2.2 Total Bilirubin 0.4 AST 29 ALT 33 Alkaline Phosphatase 83 Total Protein 6.0 L Albumin 2.6 L Globulin 3.4 Albumin/Globulin Ratio 0.8 L Pleural pH 8.0 Ur L.pneumophila Ag Mycoplasma pneumon IgM 03/25/18 12:12 WBC RBC Hgb Hct MCV MCH MCHC RDW Plt Count MPV Neut % (Auto) Lymph % (Auto) [place] % (Auto) Eos % (Auto) Baso % (Auto) Neut # (Auto) Lymph # (Auto) [place] # (Auto) Eos # (Auto) Baso # (Auto) Neutrophils % (Manual) Lymphocytes % (Manual) Monocytes % (Manual) Platelet Estimate Anisocytosis (manual) Sodium Potassium Chloride Carbon Dioxide Anion Gap BUN Creatinine Est GFR ( Amer) Est GFR (Non-Af Amer) Random Glucose Calcium Phosphorus Magnesium Total Bilirubin AST ALT Alkaline Phosphatase Total Protein Albumin Globulin Albumin/Globulin Ratio Pleural pH Ur L.pneumophila Ag Negative Mycoplasma pneumon IgM Negative Critical Care Progress Note - Nutrition Nutrition: Nutrition Category Date Time Status Regular Diet [DIET] Diets 03/19/18 Dinner Active Attending/Attestation - Attestation I have personally seen and examined this patient.: Yes I have fully participated in the care of the patient.: Yes I have reviewed all pertinent clinical information: Yes Notes (Text): 03/25/18 16:58 patient seen and examined in the intensive care unit. Patient transferred to intensive care unit for respiratory failure status post thoracentesis CAT scan of the chest consistent with bilateral pleural effusion Echocardiogram noted normal ejection fraction Etiology of pleural effusion not clear pending fluid analysis Continue antibiotics Follow-up culture and sensitivity
--- NOTE | 2018-03-25 13:30 | RAD ---
Chest x-ray single frontal view History: Shortness of breath. Comparison: 03/24/2018 Findings: Biapical pleural thickening with upper lobe granulomatous changes. Moderate to severe venous congestion. Confluent airspace opacification in the mid to lower lung zones. Moderate bilateral pleural effusions. Cardiomegaly. Degenerative changes in the spine and shoulders. Calcific tendinopathy of the left proximal humerus. Impression: Biapical pleural thickening with upper lobe granulomatous changes. Moderate to severe venous congestion. Confluent airspace opacification in the mid to lower lung zones. Moderate bilateral pleural effusions. Cardiomegaly. Degenerative changes in the spine and shoulders. Calcific tendinopathy of the left proximal humerus.
--- NOTE | 2018-03-25 13:36 | CT ---
Date of service: 03/25/2018 PROCEDURE: CT Chest without contrast HISTORY: infiltrates COMPARISON: 03/06/2018 angio chest PE protocol study. TECHNIQUE: Contiguous axial images were obtained through the chest without intravenous contrast enhancement. Sagittal and coronal reconstructions were performed. Radiation dose (DLP): 533 mGy-cm. This CT exam was performed using one or more of the following dose reduction techniques: Automated exposure control, adjustment of the mA and/or kV according to patient size, and/or use of iterative reconstruction technique. FINDINGS: LUNGS: Interval extensive bibasilar compressive atelectatic changes blend with bilateral hilar soft tissue fullness. Compressive atelectatic changes - inferred - given the recent 03/06/2018 study negative for any prominent lymphadenopathy here. At each mid and upper lobe, are interval patchy irregular airspace opacities compatible with infiltrates. MEDIASTINUM: Unremarkable thoracic aorta. No aneurysm. Cardiomegaly. No pericardial effusion. Main pulmonary artery unremarkable. No vascular congestion. No lymphadenopathy. Coronary artery calcifications noted PLEURA: Bilateral moderate pleural effusions increased since prior exam. BONES: No fracture. No destructive lesion. UPPER ABDOMEN: Grossly unremarkable. OTHER FINDINGS: None. IMPRESSION: Interval increased bilateral pleural effusions with interval extensive bibasilar compressive associated atelectasis. Interval patchy bilateral upper lobe irregular infiltrates. Cardiomegaly. Coronary artery calcification. No pericardial effusion.
[2018-03-25 14:32] LABS: LEGIONELLA AG URINE NEGATIVE (NEGATIVE)
[2018-03-25 14:40] LABS: MYCOPLASMA PNEUMONIAE IGM NEGATIVE (NEGATIVE)
--- NOTE | 2018-03-25 15:33 | RAD ---
Date of service: 03/25/2018 HISTORY: pneumonia COMPARISON: 03/24/2018 FINDINGS: LUNGS: Coalescent opacities -bibasilar compatible with coalescing areas of pulmonary edema and compressive atelectasis associated with bi basilar pleural effusions. Concomitant underlying infiltrates not excluded. The opacities are similar to perhaps slightly increased. PLEURA: Bilateral pleural effusions slightly increased since prior exam. CARDIOVASCULAR: Cardiomegaly and pulmonary venous congestion OSSEOUS STRUCTURES: Bilateral shoulder arthrosis. VISUALIZED UPPER ABDOMEN: Normal. OTHER FINDINGS: There is a large tubular structure projecting over the left upper abdominal quadrant correlate clinically Calcified right hilar lymph nodes IMPRESSION: Cardiomegaly pulmonary venous congestion with likely coalescent areas of pulmonary edema at both lung bases. This is in addition to by a basilar pleural effusions (slightly increased since prior exam inferred bibasilar compressive atelectasis.
--- NOTE | 2018-03-25 18:24 | CP.PCM.PN ---
Subjective - Date & Time of Evaluation Date of Evaluation: 03/25/18 Time of Evaluation: 18:22 - Subjective Subjective: Patient tachypneic. CT of the chest revealed reaccumulation of bilateral pleural effusion. Afebrile. WBC slightly decreased. Objective - Vital Signs/Intake and Output Vital Signs (last 24 hours): Temp Pulse Resp BP Pulse Ox 98.0 F 104 H 20 124/44 L 93 L 03/25/18 16:00 03/25/18 17:10 03/25/18 17:10 03/25/18 17:10 03/25/18 17:10 Intake and Output: 03/25/18 03/25/18 06:59 18:59 Intake Total 150 280 Output Total 400 Balance -250 280 - Medications Medications: Current Medications Acetaminophen (Tylenol 325mg Tab) 650 mg PO Q4 PRN PRN Reason: Pain, Mild (1-3) Last Admin: 03/21/18 04:52 Dose: 650 mg Albumin Human (Albumin Human 25% (12.5 Gm/50 Ml)) 12.5 gm IV Q8 ANIYAH Stop: 03/26/18 14:01 Albuterol/Ipratropium (Duoneb 3 Mg/0.5 Mg (3 Ml) Ud) 3 ml INH RQ6 ANIYAH Last Admin: 03/25/18 13:37 Dose: 3 ml Alprazolam (Xanax) 0.25 mg PO HS ONE Stop: 03/25/18 21:01 Ferrous Sulfate (Feosol) 325 mg PO TID ANIYAH Last Admin: 03/25/18 17:52 Dose: 325 mg Ceftriaxone Sodium 2 gm/ (Sodium Chloride) 100 mls @ 100 mls/hr IVPB Q12H ANIYAH PRN Reason: Protocol Last Admin: 03/25/18 16:02 Dose: 100 mls/hr Pantoprazole Sodium (Protonix Inj) 40 mg IVP DAILY ANIYAH Last Admin: 03/25/18 09:05 Dose: 40 mg - Labs Labs: 03/25/18 05:57 03/25/18 05:57 PT 13.6 SECONDS (9.7-12.2) H 03/20/18 07:25 INR 1.2 03/20/18 07:25 APTT 32 SECONDS (21-34) D 03/20/18 07:25 - Constitutional Appears: Chronically Ill - Head Exam Head Exam: NORMAL INSPECTION - ENT Exam ENT Exam: Normal Exam - Neck Exam Neck Exam: Normal Inspection - Respiratory Exam Additional comments: Decreased breathing sounds at both bases. - Cardiovascular Exam Cardiovascular Exam: Tachycardia - GI/Abdominal Exam GI & Abdominal Exam: Soft, Normal Bowel Sounds - Rectal Exam Rectal Exam: Deferred - Extremities Exam Extremities Exam: Normal Inspection - Back Exam Back Exam: NORMAL INSPECTION - Neurological Exam Neurological Exam: Alert, Awake, Oriented x3 - Psychiatric Exam Psychiatric exam: Anxious - Skin Skin Exam: Dry, Intact, Normal Color, Warm Assessment and Plan (1) Lower GI bleeding Status: Acute (2) Anemia Status: Acute (3) Pneumonia Assessment & Plan: Pneumonia and bilateral pleural effusion. Needs chest tubes?. Status: Acute (4) Hyperkalemia Status: Resolved (5) Hyponatremia Status: Resolved (6) Acute diastolic (congestive) heart failure Status: Resolved (7) Acute bacterial endocarditis Assessment & Plan: IV antibiotics as per ID. Status: Acute (8) Acute non-ST elevation myocardial infarction (NSTEMI) Status: Acute
[2018-03-25] MEDS: Albumin Human 25% (12.5 gm/50 ml) IV SCH (21:13)
[2018-03-25 23:59] LABS: ABG ALLEN TEST POS; ARTERIAL BLOOD GAS HEMOGLOBIN 10.7 g/dL (11.7-17.4); ARTERIAL BLOOD GAS O2 SAT 99.8 % (95-98); ARTERIAL BLOOD GAS PCO2 33 mm/Hg (35-45); ARTERIAL BLOOD GAS PH 7.48 (7.35-7.45); ARTERIAL BLOOD GAS PO2 211 mm/Hg (80-100); ARTERIAL BLOOD GAS TCO2 25.6 mmol/L (22-28)
[2018-03-26] MEDS: Albuterol-Ipratrop 3 mg / 0.5 (3 ml) UD INH SCH ×4 (01:36→19:11)
[2018-03-26 02:27] LABS: AMYLASE PLEURAL FLUID 13 U/L
[2018-03-26] MEDS: Albumin Human 25% (12.5 gm/50 ml) IV SCH ×2 (05:57→14:38)
[2018-03-26 06:22] LABS: BASO # 0.1 K/uL (0.0-0.2); BASO % 0.7 % (0.0-2.0); HEMOGLOBIN 10.9 g/dL (12.0-18.0); LYMPH # 1.3 K/uL (1.0-4.3); LYMPH % 11.2 % (20.0-40.0); MEAN CELL VOLUME 85.4 fL (80.0-94.0); MEAN CORPUSCULAR HEMOGLOBIN 28.5 pg (27.0-31.0); MEAN CORPUSCULAR HGB CONC 33.4 g/dL (33.0-37.0); MEAN PLATELET VOLUME 7.3 fL (7.2-11.7); MONO # 0.5 K/uL (0.0-0.8); MONO % 4.6 % (0.0-10.0); NEUT # 9.5 K/uL (1.8-7.0); NEUT % 83.5 % (50.0-75.0); NRBC % 0.1 % (0.0-2.0); RBC 3.82 Mil/uL (4.40-5.90); RED CELL DISTRIBUTION WIDTH 18.3 % (11.5-14.5); WHITE BLOOD COUNT 11.3 K/uL (4.8-10.8)
[2018-03-26 06:30] LABS: ALB/GLOB RATIO 0.9 (1.0-2.1); ALT/SGPT 41 U/L (21-72); AST/SGOT 27 U/L (17-59); BLOOD UREA NITROGEN 29 mg/dL (9-20); CALCIUM 8.1 mg/dl (8.6-10.4); GFR NON-AFRICAN AMERICAN > 60
[2018-03-26 07:01] LABS: GLUCOSE PLEURAL FLUID 156 mg/dL; LDH PLEURAL FLUID 75 U/L; TOTAL PROTEIN PLEURAL FLUID <3.0 g/dL; TRIGLYCERIDES PLEURAL FLUID 15 mg/dL
[2018-03-26 09:37] LABS: B-TYPE NATRIURETIC PEPTIDE 12600 pg/mL (0-900)
[2018-03-26] MEDS: Pantoprazole 40 mg EC Tab PO SCH (10:00)
--- NOTE | 2018-03-26 11:20 | CP.CCUPN ---
<Luis Bolaños - Last Filed: 03/26/18 12:21> CCU Subjective - Physician Review Subjective (Free Text): Critical Care Progress Note: Patient seen and examined at bedside. No acute events overnight. Patient did well on high flow oxygen yesterday however became progressively short of breath and was placed on Bipap. Patient also had an episode of melanatic bowel movement this morning. Denies any chest pain. No other complaints. 03/26/18 11:23 CCU Objective - Vital Signs / Intake & Output Vital Signs (Last 4 hours): Vital Signs Pulse 03/26/18 08:07 103 H Intake and Output (Last 8hrs): Intake & Output 03/25/18 03/26/18 03/26/18 22:59 06:59 14:59 Intake Total 150 100 0 Output Total 400 120 120 Balance -250 -20 -120 Weight 137 lb Intake: Intake, IV Amount 100 Right Forearm 100 Oral 150 0 0 Output: Urine 400 120 120 Condom 120 120 Urine, Voided 400 - Physical Exam Head: Positive for: Atraumatic, Normocephalic Pupils: Positive for: PERRL Extroacular Muscles: Positive for: Other (left eyeball with upward gaze deviation, blind in left eye, but R eye visual simpson grossly intact) Conjunctiva: Positive for: Normal. Negative for: Injected, Icteric Mouth: Positive for: Moist Mucous Membranes Pharnyx: Positive for: Other (unable to assess due to bipap mask) Nose (External): Positive for: Atraumatic. Negative for: Abrasion, Contusion, Laceration Neck: Positive for: Normal Range of Motion, Trachea Midline. Negative for: Lymphadenopathy Respiratory/Chest: Positive for: Good Air Exchange, Decreased Breath Sounds ( mildly decreased breath sounds at bilateral bases), Rales (bases ). Negative for: Respiratory Distress, Wheezes, Rhonchi, Tachypneic, Tender to Palpation Cardiovascular: Positive for: Regular Rate and Rhythm, Normal S1, S2. Negative for: Murmurs, Irregular Rhythm, Tachycardic, Bradycardic Abdomen: Positive for: Normal Bowel Sounds. Negative for: Tenderness, Distention, Rebound, Guarding, Mass/Organomegaly Upper Extremity: Positive for: Normal Inspection, NORMAL PULSES (+2 radials). Negative for: Cyanosis, Edema, Tenderness, Swelling, Erythema Lower Extremity: Positive for: Normal Inspection, NORMAL PULSES (+2 dorsalis pedis bilaterally). Negative for: Edema, CALF TENDERNESS, Cyanosis, Tenderness , Swelling, Erythema Neurological: Positive for: GCS=15, Speech Normal (muffled 2/2 Bipap mask, but otherwise normal speech, speech content normal) Skin: Positive for: Warm, Dry, Normal Color. Negative for: Rashes Psychiatric: Positive for: Oriented x 3 - Medications Active Medications: Active Medications Generic Name Dose Route Start Last Admin Trade Name Freq PRN Reason Stop Dose Admin Acetaminophen 650 mg 03/19/18 12:00 03/21/18 04:52 Tylenol 325mg Tab PO 650 mg Q4 PRN Administration Pain, Mild (1-3) Albumin Human 12.5 gm 03/25/18 22:00 03/26/18 05:57 Albumin Human 25% (12.5 Gm/50 Ml) IV 03/26/18 14:01 12.5 gm Q8 ANIYAH Administration Albuterol/Ipratropium 3 ml 03/24/18 14:00 03/26/18 08:07 Duoneb 3 Mg/0.5 Mg (3 Ml) Ud INH 3 ml RQ6 ANIYAH Administration Ferrous Sulfate 325 mg 03/19/18 10:00 03/26/18 10:00 Feosol PO 325 mg TID ANIYAH Administration Ceftriaxone Sodium 2 gm/ 100 mls @ 100 mls/hr 03/21/18 16:00 03/26/18 03:46 Sodium Chloride IVPB 100 mls/hr Q12H ANIYAH Administration Protocol Pantoprazole Sodium 40 mg 03/26/18 10:00 03/26/18 10:00 Protonix Ec Tab PO 40 mg DAILY ANIYAH Administration - Patient Studies Lab Studies: Lab Studies 03/26/18 03/26/18 03/25/18 Range/Units 06:13 06:13 23:55 WBC 11.3 H (4.8-10.8) K/uL RBC 3.82 L (4.40-5.90) Mil/uL Hgb 10.9 L (12.0-18.0) g/dL Hct 32.6 L (35.0-51.0) % MCV 85.4 (80.0-94.0) fL MCH 28.5 (27.0-31.0) pg MCHC 33.4 (33.0-37.0) g/dL RDW 18.3 H (11.5-14.5) % Plt Count 363 (130-400) K/uL MPV 7.3 (7.2-11.7) fL Neut % (Auto) 83.5 H (50.0-75.0) % Lymph % (Auto) 11.2 L (20.0-40.0) % [place] % (Auto) 4.6 (0.0-10.0) % Eos % (Auto) 0.0 (0.0-4.0) % Baso % (Auto) 0.7 (0.0-2.0) % Neut # (Auto) 9.5 H (1.8-7.0) K/uL Lymph # (Auto) 1.3 (1.0-4.3) K/uL [place] # (Auto) 0.5 (0.0-0.8) K/uL Eos # (Auto) 0.0 (0.0-0.7) K/uL Baso # (Auto) 0.1 (0.0-0.2) K/uL Puncture Site Rr pCO2 33 L (35-45) mm/Hg pO2 211 H (80-100) mm/Hg HCO3 26.0 (21-28) mmol/L ABG pH 7.48 H (7.35-7.45) ABG Total CO2 25.6 (22-28) mmol/L ABG O2 Saturation 99.8 H (95-98) % ABG Base Excess 1.4 (-2.0-3.0) mmol/L ABG Hemoglobin 10.7 L (11.7-17.4) g/dL ABG Carboxyhemoglobin 1.4 (0.5-1.5) % POC ABG HHb (Measured) 0.2 (0.0-5.0) % ABG Methemoglobin 1.1 (0.0-3.0) % [place] Test Pos A-a O2 Difference 461.0 mm/Hg Respiratory Index 2.2 Hgb O2 Saturation 97.3 (95.0-98.0) % Vent Mode Bipap FiO2 100.0 % Inspiratory BiPAP 14 Expiratory BiPAP 7 Sodium 138 (132-148) mmol/L Potassium 4.5 (3.6-5.2) mmol/L Chloride 103 (98-107) mmol/L Carbon Dioxide 26 (22-30) mmol/L Anion Gap 13 (10-20) BUN 29 H (9-20) mg/dL Creatinine 0.8 (0.8-1.5) mg/dL Est GFR ( Amer) > 60 Est GFR (Non-Af Amer) > 60 Random Glucose 137 H (75-110) mg/dL Calcium 8.1 L (8.6-10.4) mg/dl Phosphorus 3.8 (2.5-4.5) mg/dL Magnesium 2.3 (1.6-2.3) mg/dL Total Bilirubin 0.4 (0.2-1.3) mg/dL AST 27 (17-59) U/L ALT 41 (21-72) U/L Alkaline Phosphatase 92 (38-126) U/L NT-Pro-B Natriuret Pep 63826 H (0-900) pg/mL Total Protein 6.2 L (6.3-8.3) g/dL Albumin 3.0 L (3.5-5.0) g/dL Globulin 3.2 (2.2-3.9) gm/dL Albumin/Globulin Ratio 0.9 L (1.0-2.1) Pleural Total Protein g/dL Pleural LDH U/L Pleural Glucose mg/dL Pleural Amylase U/L Pleural Triglycerides mg/dL Ur L.pneumophila Ag (NEGATIVE) Mycoplasma pneumon IgM (NEGATIVE) 03/25/18 03/24/18 03/22/18 Range/Units 12:12 12:08 11:20 WBC (4.8-10.8) K/uL RBC (4.40-5.90) Mil/uL Hgb (12.0-18.0) g/dL Hct (35.0-51.0) % MCV (80.0-94.0) fL MCH (27.0-31.0) pg MCHC (33.0-37.0) g/dL RDW (11.5-14.5) % Plt Count (130-400) K/uL MPV (7.2-11.7) fL Neut % (Auto) (50.0-75.0) % Lymph % (Auto) (20.0-40.0) % [place] % (Auto) (0.0-10.0) % Eos % (Auto) (0.0-4.0) % Baso % (Auto) (0.0-2.0) % Neut # (Auto) (1.8-7.0) K/uL Lymph # (Auto) (1.0-4.3) K/uL [place] # (Auto) (0.0-0.8) K/uL Eos # (Auto) (0.0-0.7) K/uL Baso # (Auto) (0.0-0.2) K/uL Puncture Site pCO2 (35-45) mm/Hg pO2 (80-100) mm/Hg HCO3 (21-28) mmol/L ABG pH (7.35-7.45) ABG Total CO2 (22-28) mmol/L ABG O2 Saturation (95-98) % ABG Base Excess (-2.0-3.0) mmol/L ABG Hemoglobin (11.7-17.4) g/dL ABG Carboxyhemoglobin (0.5-1.5) % POC ABG HHb (Measured) (0.0-5.0) % ABG Methemoglobin (0.0-3.0) % [place] Test A-a O2 Difference mm/Hg Respiratory Index Hgb O2 Saturation (95.0-98.0) % Vent Mode FiO2 % Inspiratory BiPAP Expiratory BiPAP Sodium (132-148) mmol/L Potassium (3.6-5.2) mmol/L Chloride (98-107) mmol/L Carbon Dioxide (22-30) mmol/L Anion Gap (10-20) BUN (9-20) mg/dL Creatinine (0.8-1.5) mg/dL Est GFR ( Amer) Est GFR (Non-Af Amer) Random Glucose (75-110) mg/dL Calcium (8.6-10.4) mg/dl Phosphorus (2.5-4.5) mg/dL Magnesium (1.6-2.3) mg/dL Total Bilirubin (0.2-1.3) mg/dL AST (17-59) U/L ALT (21-72) U/L Alkaline Phosphatase (38-126) U/L NT-Pro-B Natriuret Pep (0-900) pg/mL Total Protein (6.3-8.3) g/dL Albumin (3.5-5.0) g/dL Globulin (2.2-3.9) gm/dL Albumin/Globulin Ratio (1.0-2.1) Pleural Total Protein <3.0 g/dL Pleural LDH 75 U/L Pleural Glucose 156 mg/dL Pleural Amylase 11 13 U/L Pleural Triglycerides 15 mg/dL Ur L.pneumophila Ag Negative (NEGATIVE) Mycoplasma pneumon IgM Negative (NEGATIVE) Laboratory Results - last 24 hr 03/22/18 03/24/18 03/25/18 11:20 12:08 12:12 WBC RBC Hgb Hct MCV MCH MCHC RDW Plt Count MPV Neut % (Auto) Lymph % (Auto) [place] % (Auto) Eos % (Auto) Baso % (Auto) Neut # (Auto) Lymph # (Auto) [place] # (Auto) Eos # (Auto) Baso # (Auto) Puncture Site pCO2 pO2 HCO3 ABG pH ABG Total CO2 ABG O2 Saturation ABG Base Excess ABG Hemoglobin ABG Carboxyhemoglobin POC ABG HHb (Measured) ABG Methemoglobin [place] Test A-a O2 Difference Respiratory Index Hgb O2 Saturation Vent Mode FiO2 Inspiratory BiPAP Expiratory BiPAP Sodium Potassium Chloride Carbon Dioxide Anion Gap BUN Creatinine Est GFR ( Amer) Est GFR (Non-Af Amer) Random Glucose Calcium Phosphorus Magnesium Total Bilirubin AST ALT Alkaline Phosphatase NT-Pro-B Natriuret Pep Total Protein Albumin Globulin Albumin/Globulin Ratio Pleural Total Protein <3.0 Pleural LDH 75 Pleural Glucose 156 Pleural Amylase 13 11 Pleural Triglycerides 15 Ur L.pneumophila Ag Negative Mycoplasma pneumon IgM Negative 03/25/18 03/26/18 03/26/18 23:55 06:13 06:13 WBC 11.3 H RBC 3.82 L Hgb 10.9 L Hct 32.6 L MCV 85.4 MCH 28.5 MCHC 33.4 RDW 18.3 H Plt Count 363 MPV 7.3 Neut % (Auto) 83.5 H Lymph % (Auto) 11.2 L [place] % (Auto) 4.6 Eos % (Auto) 0.0 Baso % (Auto) 0.7 Neut # (Auto) 9.5 H Lymph # (Auto) 1.3 [place] # (Auto) 0.5 Eos # (Auto) 0.0 Baso # (Auto) 0.1 Puncture Site Rr pCO2 33 L pO2 211 H HCO3 26.0 ABG pH 7.48 H ABG Total CO2 25.6 ABG O2 Saturation 99.8 H ABG Base Excess 1.4 ABG Hemoglobin 10.7 L ABG Carboxyhemoglobin 1.4 POC ABG HHb (Measured) 0.2 ABG Methemoglobin 1.1 [place] Test Pos A-a O2 Difference 461.0 Respiratory Index 2.2 Hgb O2 Saturation 97.3 Vent Mode Bipap FiO2 100.0 Inspiratory BiPAP 14 Expiratory BiPAP 7 Sodium 138 Potassium 4.5 Chloride 103 Carbon Dioxide 26 Anion Gap 13 BUN 29 H Creatinine 0.8 Est GFR ( Amer) > 60 Est GFR (Non-Af Amer) > 60 Random Glucose 137 H Calcium 8.1 L Phosphorus 3.8 Magnesium 2.3 Total Bilirubin 0.4 AST 27 ALT 41 Alkaline Phosphatase 92 NT-Pro-B Natriuret Pep 26534 H Total Protein 6.2 L Albumin 3.0 L Globulin 3.2 Albumin/Globulin Ratio 0.9 L Pleural Total Protein Pleural LDH Pleural Glucose Pleural Amylase Pleural Triglycerides Ur L.pneumophila Ag Mycoplasma pneumon IgM Fingerstick Blood Sugar Results: 174 Review of Systems - Review of Systems All systems: reviewed and no additional remarkable complaints except (HPI) Critical Care Progress Note - Nutrition Nutrition: Nutrition Category Date Time Status Regular Diet [DIET] Diets 03/19/18 Dinner Active Assessment/Plan - Assessment and Plan (Free Text) Assessment: 67 yo M with PMH of 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 s/p right-sided thoracentesis, 1.5L removed, and L sided thoracentesis today, 860ml removed. Repeat CT scan showed reaccumulated bilateral pleural effusions. Neuro: -pt is awake and alert Pulm: -Repeat CT scan showed reaccumulated bilateral pleural effusions and b/l upper infiltrate -Consulted cardiothoracic for recs possible pigtail vs chest tube insertion -Consulted IR for possible pigtail cath insertion -F/u septic work up neg for mycoplasma and Leigonella -Currently on BIPAP 14/7 on 80% FIO2 -maintain SaO2 > 92% -Encourage Incentive spirometer Cardio: -Hemodynamically stable -Cardiology consulted for possible АЛЕКСАНДР to r/o any aortic vegetations, (echo showed aortic valve thickening) -maintaining MAP > 65, -Echo 03/21: EF 41%, grade-1 abnormal relaxation patter on transmitral doppler, severely thickened aortic valve, cannot exclude aortic valve vegitation -Increasing trop from 03/20-03/21, concerning for NSTEMI; not currently on AC due to concern for bleeding GI: -NPO -Melanotic stool this AM -Repeat CBC 2pm -daily protonix for GI ppx -GI signed off, recs radiation course as planned with Rad-onc Renal: -monitor I and O - replete electrolytes as needed Heme: -Monitor H/H -No AC at this time due to concern for bleeding, given rectal bleeding on presentation; SCDs for DVT ppx -Heme-onc following; continue radiation therapy, can start Xeloda as outpatient ID: -Follow up repeat blood cx -WBCs dec 14.2--> 11.6--> 11.3, afebrile -Strep Viridans bacteremia, blood cultures positive x2 -ID following, appreciate all recs; Cont on Rocephin Endo: -maintain euglycemia Case and plan was reviewed, and discussed with attending, Dr. Solis. <Duke Solis - Last Filed: 03/26/18 13:05> CCU Objective - Vital Signs / Intake & Output Vital Signs (Last 4 hours): Vital Signs Pulse 03/26/18 11:41 101 H Intake and Output (Last 8hrs): Intake & Output 03/25/18 03/26/18 03/26/18 22:59 06:59 14:59 Intake Total 150 100 0 Output Total 400 120 120 Balance -250 -20 -120 Weight 137 lb Intake: Intake, IV Amount 100 Right Forearm 100 Oral 150 0 0 Output: Urine 400 120 120 Condom 120 120 Urine, Voided 400 - Medications Active Medications: Active Medications Generic Name Dose Route Start Last Admin Trade Name Freq PRN Reason Stop Dose Admin Acetaminophen 650 mg 03/19/18 12:00 03/21/18 04:52 Tylenol 325mg Tab PO 650 mg Q4 PRN Administration Pain, Mild (1-3) Albumin Human 12.5 gm 03/25/18 22:00 03/26/18 05:57 Albumin Human 25% (12.5 Gm/50 Ml) IV 03/26/18 14:01 12.5 gm Q8 ANIYAH Administration Albuterol/Ipratropium 3 ml 03/24/18 14:00 03/26/18 08:07 Duoneb 3 Mg/0.5 Mg (3 Ml) Ud INH 3 ml RQ6 ANIYAH Administration Ferrous Sulfate 325 mg 03/19/18 10:00 03/26/18 10:00 Feosol PO 325 mg TID ANIYAH Administration Ceftriaxone Sodium 2 gm/ 100 mls @ 100 mls/hr 03/21/18 16:00 03/26/18 03:46 Sodium Chloride IVPB 100 mls/hr Q12H ANIYAH Administration Protocol Pantoprazole Sodium 40 mg 03/26/18 10:00 03/26/18 10:00 Protonix Ec Tab PO 40 mg DAILY ANIYAH Administration - Patient Studies Lab Studies: Microbiology Studies 03/25/18 12:12 Blood Culture - Preliminary Blood NO GROWTH AFTER 24 HOURS 03/25/18 12:12 Blood Culture - Preliminary Blood NO GROWTH AFTER 24 HOURS Lab Studies 03/26/18 03/26/18 03/25/18 Range/Units 06:13 06:13 23:55 WBC 11.3 H (4.8-10.8) K/uL RBC 3.82 L (4.40-5.90) Mil/uL Hgb 10.9 L (12.0-18.0) g/dL Hct 32.6 L (35.0-51.0) % MCV 85.4 (80.0-94.0) fL MCH 28.5 (27.0-31.0) pg MCHC 33.4 (33.0-37.0) g/dL RDW 18.3 H (11.5-14.5) % Plt Count 363 (130-400) K/uL MPV 7.3 (7.2-11.7) fL Neut % (Auto) 83.5 H (50.0-75.0) % Lymph % (Auto) 11.2 L (20.0-40.0) % [place] % (Auto) 4.6 (0.0-10.0) % Eos % (Auto) 0.0 (0.0-4.0) % Baso % (Auto) 0.7 (0.0-2.0) % Neut # (Auto) 9.5 H (1.8-7.0) K/uL Lymph # (Auto) 1.3 (1.0-4.3) K/uL [place] # (Auto) 0.5 (0.0-0.8) K/uL Eos # (Auto) 0.0 (0.0-0.7) K/uL Baso # (Auto) 0.1 (0.0-0.2) K/uL Puncture Site Rr pCO2 33 L (35-45) mm/Hg pO2 211 H (80-100) mm/Hg HCO3 26.0 (21-28) mmol/L ABG pH 7.48 H (7.35-7.45) ABG Total CO2 25.6 (22-28) mmol/L ABG O2 Saturation 99.8 H (95-98) % ABG Base Excess 1.4 (-2.0-3.0) mmol/L ABG Hemoglobin 10.7 L (11.7-17.4) g/dL ABG Carboxyhemoglobin 1.4 (0.5-1.5) % POC ABG HHb (Measured) 0.2 (0.0-5.0) % ABG Methemoglobin 1.1 (0.0-3.0) % [place] Test Pos A-a O2 Difference 461.0 mm/Hg Respiratory Index 2.2 Hgb O2 Saturation 97.3 (95.0-98.0) % Vent Mode Bipap FiO2 100.0 % Inspiratory BiPAP 14 Expiratory BiPAP 7 Sodium 138 (132-148) mmol/L Potassium 4.5 (3.6-5.2) mmol/L Chloride 103 (98-107) mmol/L Carbon Dioxide 26 (22-30) mmol/L Anion Gap 13 (10-20) BUN 29 H (9-20) mg/dL Creatinine 0.8 (0.8-1.5) mg/dL Est GFR ( Amer) > 60 Est GFR (Non-Af Amer) > 60 Random Glucose 137 H (75-110) mg/dL Calcium 8.1 L (8.6-10.4) mg/dl Phosphorus 3.8 (2.5-4.5) mg/dL Magnesium 2.3 (1.6-2.3) mg/dL Total Bilirubin 0.4 (0.2-1.3) mg/dL AST 27 (17-59) U/L ALT 41 (21-72) U/L Alkaline Phosphatase 92 (38-126) U/L NT-Pro-B Natriuret Pep 68759 H (0-900) pg/mL Total Protein 6.2 L (6.3-8.3) g/dL Albumin 3.0 L (3.5-5.0) g/dL Globulin 3.2 (2.2-3.9) gm/dL Albumin/Globulin Ratio 0.9 L (1.0-2.1) Pleural Total Protein g/dL Pleural LDH U/L Pleural Glucose mg/dL Pleural Amylase U/L Pleural Triglycerides mg/dL Ur L.pneumophila Ag (NEGATIVE) Mycoplasma pneumon IgM (NEGATIVE) 03/25/18 03/24/18 03/22/18 Range/Units 12:12 12:08 11:20 WBC (4.8-10.8) K/uL RBC (4.40-5.90) Mil/uL Hgb (12.0-18.0) g/dL Hct (35.0-51.0) % MCV (80.0-94.0) fL MCH (27.0-31.0) pg MCHC (33.0-37.0) g/dL RDW (11.5-14.5) % Plt Count (130-400) K/uL MPV (7.2-11.7) fL Neut % (Auto) (50.0-75.0) % Lymph % (Auto) (20.0-40.0) % [place] % (Auto) (0.0-10.0) % Eos % (Auto) (0.0-4.0) % Baso % (Auto) (0.0-2.0) % Neut # (Auto) (1.8-7.0) K/uL Lymph # (Auto) (1.0-4.3) K/uL [place] # (Auto) (0.0-0.8) K/uL Eos # (Auto) (0.0-0.7) K/uL Baso # (Auto) (0.0-0.2) K/uL Puncture Site pCO2 (35-45) mm/Hg pO2 (80-100) mm/Hg HCO3 (21-28) mmol/L ABG pH (7.35-7.45) ABG Total CO2 (22-28) mmol/L ABG O2 Saturation (95-98) % ABG Base Excess (-2.0-3.0) mmol/L ABG Hemoglobin (11.7-17.4) g/dL ABG Carboxyhemoglobin (0.5-1.5) % POC ABG HHb (Measured) (0.0-5.0) % ABG Methemoglobin (0.0-3.0) % [place] Test A-a O2 Difference mm/Hg Respiratory Index Hgb O2 Saturation (95.0-98.0) % Vent Mode FiO2 % Inspiratory BiPAP Expiratory BiPAP Sodium (132-148) mmol/L Potassium (3.6-5.2) mmol/L Chloride (98-107) mmol/L Carbon Dioxide (22-30) mmol/L Anion Gap (10-20) BUN (9-20) mg/dL Creatinine (0.8-1.5) mg/dL Est GFR ( Amer) Est GFR (Non-Af Amer) Random Glucose (75-110) mg/dL Calcium (8.6-10.4) mg/dl Phosphorus (2.5-4.5) mg/dL Magnesium (1.6-2.3) mg/dL Total Bilirubin (0.2-1.3) mg/dL AST (17-59) U/L ALT (21-72) U/L Alkaline Phosphatase (38-126) U/L NT-Pro-B Natriuret Pep (0-900) pg/mL Total Protein (6.3-8.3) g/dL Albumin (3.5-5.0) g/dL Globulin (2.2-3.9) gm/dL Albumin/Globulin Ratio (1.0-2.1) Pleural Total Protein <3.0 g/dL Pleural LDH 75 U/L Pleural Glucose 156 mg/dL Pleural Amylase 11 13 U/L Pleural Triglycerides 15 mg/dL Ur L.pneumophila Ag Negative (NEGATIVE) Mycoplasma pneumon IgM Negative (NEGATIVE) Laboratory Results - last 24 hr 03/22/18 03/24/18 03/25/18 11:20 12:08 12:12 WBC RBC Hgb Hct MCV MCH MCHC RDW Plt Count MPV Neut % (Auto) Lymph % (Auto) [place] % (Auto) Eos % (Auto) Baso % (Auto) Neut # (Auto) Lymph # (Auto) [place] # (Auto) Eos # (Auto) Baso # (Auto) Puncture Site pCO2 pO2 HCO3 ABG pH ABG Total CO2 ABG O2 Saturation ABG Base Excess ABG Hemoglobin ABG Carboxyhemoglobin POC ABG HHb (Measured) ABG Methemoglobin [place] Test A-a O2 Difference Respiratory Index Hgb O2 Saturation Vent Mode FiO2 Inspiratory BiPAP Expiratory BiPAP Sodium Potassium Chloride Carbon Dioxide Anion Gap BUN Creatinine Est GFR ( Amer) Est GFR (Non-Af Amer) Random Glucose Calcium Phosphorus Magnesium Total Bilirubin AST ALT Alkaline Phosphatase NT-Pro-B Natriuret Pep Total Protein Albumin Globulin Albumin/Globulin Ratio Pleural Total Protein <3.0 Pleural LDH 75 Pleural Glucose 156 Pleural Amylase 13 11 Pleural Triglycerides 15 Ur L.pneumophila Ag Negative Mycoplasma pneumon IgM Negative 03/25/18 03/26/18 03/26/18 23:55 06:13 06:13 WBC 11.3 H RBC 3.82 L Hgb 10.9 L Hct 32.6 L MCV 85.4 MCH 28.5 MCHC 33.4 RDW 18.3 H Plt Count 363 MPV 7.3 Neut % (Auto) 83.5 H Lymph % (Auto) 11.2 L [place] % (Auto) 4.6 Eos % (Auto) 0.0 Baso % (Auto) 0.7 Neut # (Auto) 9.5 H Lymph # (Auto) 1.3 [place] # (Auto) 0.5 Eos # (Auto) 0.0 Baso # (Auto) 0.1 Puncture Site Rr pCO2 33 L pO2 211 H HCO3 26.0 ABG pH 7.48 H ABG Total CO2 25.6 ABG O2 Saturation 99.8 H ABG Base Excess 1.4 ABG Hemoglobin 10.7 L ABG Carboxyhemoglobin 1.4 POC ABG HHb (Measured) 0.2 ABG Methemoglobin 1.1 [place] Test Pos A-a O2 Difference 461.0 Respiratory Index 2.2 Hgb O2 Saturation 97.3 Vent Mode Bipap FiO2 100.0 Inspiratory BiPAP 14 Expiratory BiPAP 7 Sodium 138 Potassium 4.5 Chloride 103 Carbon Dioxide 26 Anion Gap 13 BUN 29 H Creatinine 0.8 Est GFR ( Amer) > 60 Est GFR (Non-Af Amer) > 60 Random Glucose 137 H Calcium 8.1 L Phosphorus 3.8 Magnesium 2.3 Total Bilirubin 0.4 AST 27 ALT 41 Alkaline Phosphatase 92 NT-Pro-B Natriuret Pep 83932 H Total Protein 6.2 L Albumin 3.0 L Globulin 3.2 Albumin/Globulin Ratio 0.9 L Pleural Total Protein Pleural LDH Pleural Glucose Pleural Amylase Pleural Triglycerides Ur L.pneumophila Ag Mycoplasma pneumon IgM Critical Care Progress Note - Nutrition Nutrition: Nutrition Category Date Time Status Regular Diet [DIET] Diets 03/19/18 Dinner Active Attending/Attestation - Attestation I have personally seen and examined this patient.: Yes I have fully participated in the care of the patient.: Yes I have reviewed all pertinent clinical information: Yes Notes (Text): 03/26/18 12:37 I have seen and examined the patient. Medical records, lab studies, and imaging were reviewed by me and a management plan was formulated on multidisciplinary rounds with resident Dr. Bolaños. I agree with their documented assessment and plan. Patient has bilateral pleural effusions which are compromising his respiratory function, acute respiratory failure with hypoxia requiring BIPAP. Will have bilateral pigtail catheters placed by IR, then weaned off of BIPAP. Critical Care Time 35 minutes. Multi-disciplinary rounds were performed with house staff, nursing, speech therapy, respiratory therapy, pharmacy and nutrition with integrated input from the primary team/attending and other consulting services. The documented time is cumulative and includes review of patient data/exams/labs/chart review and examination of the patient on rounds and throughout the day; time is exclusive of any procedures or teaching time.
--- NOTE | 2018-03-26 11:30 | CP.PCM.CON ---
History of Present Illness - History of Present Illness History of Present Illness: PGY-1 general surgery consult note for Dr Michel CC: pleural effusions HPI: Patient is a 67 yo male with pmhx of adenocarcinoma of rectum, BPH, HTN, hypercholesterolemia, gout, that was admitted to the hospital for rectal bleeding. on serial chest xrays patient was found to have persistent bilateral pleural effusions. Patient underwent thoracentesis on 03/21/2018 and 1.5 L of fluid was removed from right side. Patient underwent left sided thoracentesis on 03/25/2018, and 860ml of fluid removed. Recent CT scan on 03/25/2018 shows increased bilateral pleural effusion. Patient is currently on bipap. Patient is in no acute distress, feeling weak but with no other complains. Family is at bedside. PMhx: Adenocarcinoma Rectum, HTN, HLD, BPH, Anemia, Left eye blindness PSH: hernia repair Allergies: aspirin SH: Former smoker, no alcohol or illicit drug use. Lives with family. FH: no known family Hx. Denies family hx of cancer. Review of Systems - Constitutional Constitutional: absent: Chills, Fever - Cardiovascular Cardiovascular: absent: Chest Pain - Respiratory Respiratory: absent: Dyspnea - Gastrointestinal Gastrointestinal: absent: Nausea, Vomiting Past Patient History - Tetanus Immunizations Tetanus Immunization: Unknown - Past Medical History & Family History Past Medical History?: Yes - Past Social History Smoking Status: Former Smoker Chewing Tobacco Use: No Cigar Use: No Alcohol: None Home Situation {Lives}: With Family Domestic Violence: Negative - CARDIAC Hx Hypercholesterolemia: Yes Hx Hypertension: Yes - PULMONARY Hx Respiratory Disorders: No - NEUROLOGICAL Hx Neurological Disorder: No - HEENT Hx HEENT Problems: Yes 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 - GENITOURINARY/GYNECOLOGICAL Hx Genitourinary Disorders: No - PSYCHIATRIC Hx Substance Use: No - SURGICAL HISTORY Hx Surgeries: Yes Hx Herniorrhaphy: Yes (left) - ANESTHESIA Hx Anesthesia: Yes Hx Anesthesia Reactions: No Meds Allergies/Adverse Reactions: Allergies Allergy/AdvReac Type Severity Reaction Status Date / Time aspirin Allergy Verified 03/18/18 16:47 - Medications Medications: Current Medications Acetaminophen (Tylenol 325mg Tab) 650 mg PO Q4 PRN PRN Reason: Pain, Mild (1-3) Last Admin: 03/21/18 04:52 Dose: 650 mg Albumin Human (Albumin Human 25% (12.5 Gm/50 Ml)) 12.5 gm IV Q8 ANIYAH Stop: 03/26/18 14:01 Last Admin: 03/26/18 05:57 Dose: 12.5 gm Albuterol/Ipratropium (Duoneb 3 Mg/0.5 Mg (3 Ml) Ud) 3 ml INH RQ6 ANIYAH Last Admin: 03/26/18 08:07 Dose: 3 ml Ferrous Sulfate (Feosol) 325 mg PO TID [facility] Last Admin: 03/25/18 17:52 Dose: 325 mg Ceftriaxone Sodium 2 gm/ (Sodium Chloride) 100 mls @ 100 mls/hr IVPB Q12H ANIYAH PRN Reason: Protocol Last Admin: 03/26/18 03:46 Dose: 100 mls/hr Pantoprazole Sodium (Protonix Ec Tab) 40 mg PO DAILY [facility] Physical Exam - Constitutional Appears: No Acute Distress - Head Exam Head Exam: ATRAUMATIC, NORMAL INSPECTION, NORMOCEPHALIC - Eye Exam Additional comments: blindness of left eye - ENT Exam ENT Exam: Mucous Membranes Moist Additional comments: Bipap mask in place - Respiratory Exam Respiratory Exam: absent: Accessory Muscle Use, Respiratory Distress Additional comments: Patient using bipap mask - GI/Abdominal Exam GI & Abdominal Exam: Soft. absent: Distended, Guarding, Rebound, Tenderness - Extremities Exam Extremities exam: Positive for: full ROM, normal inspection - Neurological Exam Neurological exam: Alert, Oriented x3 - Psychiatric Exam Psychiatric exam: Normal Affect, Normal Mood - Skin Skin Exam: Normal Color, Warm Results - Vital Signs Recent Vital Signs: Last Vital Signs Temp 99 F 03/25/18 20:00 Pulse 103 H 03/26/18 08:07 Resp 18 03/26/18 07:10 BP 124/40 L 03/26/18 07:10 Pulse Ox 96 03/26/18 07:10 - Labs Result Diagrams: 03/26/18 15:04 03/26/18 06:13 Labs: Laboratory Results - last 24 hr 03/22/18 03/24/18 03/25/18 11:20 12:08 12:12 WBC RBC Hgb Hct MCV MCH MCHC RDW Plt Count MPV Neut % (Auto) Lymph % (Auto) [place] % (Auto) Eos % (Auto) Baso % (Auto) Neut # (Auto) Lymph # (Auto) [place] # (Auto) Eos # (Auto) Baso # (Auto) Puncture Site pCO2 pO2 HCO3 ABG pH ABG Total CO2 ABG O2 Saturation ABG Base Excess ABG Hemoglobin ABG Carboxyhemoglobin POC ABG HHb (Measured) ABG Methemoglobin [place] Test A-a O2 Difference Respiratory Index Hgb O2 Saturation Vent Mode FiO2 Inspiratory BiPAP Expiratory BiPAP Sodium Potassium Chloride Carbon Dioxide Anion Gap BUN Creatinine Est GFR ( Amer) Est GFR (Non-Af Amer) Random Glucose Calcium Phosphorus Magnesium Total Bilirubin AST ALT Alkaline Phosphatase NT-Pro-B Natriuret Pep Total Protein Albumin Globulin Albumin/Globulin Ratio Pleural Total Protein <3.0 Pleural LDH 75 Pleural Glucose 156 Pleural Amylase 13 11 Pleural Triglycerides 15 Ur L.pneumophila Ag Negative Mycoplasma pneumon IgM Negative 03/25/18 03/26/18 03/26/18 23:55 06:13 06:13 WBC 11.3 H RBC 3.82 L Hgb 10.9 L Hct 32.6 L MCV 85.4 MCH 28.5 MCHC 33.4 RDW 18.3 H Plt Count 363 MPV 7.3 Neut % (Auto) 83.5 H Lymph % (Auto) 11.2 L [place] % (Auto) 4.6 Eos % (Auto) 0.0 Baso % (Auto) 0.7 Neut # (Auto) 9.5 H Lymph # (Auto) 1.3 [place] # (Auto) 0.5 Eos # (Auto) 0.0 Baso # (Auto) 0.1 Puncture Site Rr pCO2 33 L pO2 211 H HCO3 26.0 ABG pH 7.48 H ABG Total CO2 25.6 ABG O2 Saturation 99.8 H ABG Base Excess 1.4 ABG Hemoglobin 10.7 L ABG Carboxyhemoglobin 1.4 POC ABG HHb (Measured) 0.2 ABG Methemoglobin 1.1 [place] Test Pos A-a O2 Difference 461.0 Respiratory Index 2.2 Hgb O2 Saturation 97.3 Vent Mode Bipap FiO2 100.0 Inspiratory BiPAP 14 Expiratory BiPAP 7 Sodium 138 Potassium 4.5 Chloride 103 Carbon Dioxide 26 Anion Gap 13 BUN 29 H Creatinine 0.8 Est GFR ( Amer) > 60 Est GFR (Non-Af Amer) > 60 Random Glucose 137 H Calcium 8.1 L Phosphorus 3.8 Magnesium 2.3 Total Bilirubin 0.4 AST 27 ALT 41 Alkaline Phosphatase 92 NT-Pro-B Natriuret Pep 52700 H Total Protein 6.2 L Albumin 3.0 L Globulin 3.2 Albumin/Globulin Ratio 0.9 L Pleural Total Protein Pleural LDH Pleural Glucose Pleural Amylase Pleural Triglycerides Ur L.pneumophila Ag Mycoplasma pneumon IgM Assessment & Plan - Assessment and Plan (Free Text) Assessment: 67 yo M with Pmhx of adenocarcinoma of rectum consulted for increasing bilateral lung effusions Plan: -Pigtail cath insertions by IR - follow up recs -Reconsult if needed for management issue Plan discussed with Dr Marilu Calles, PGY-1 - Date & Time Date: 03/26/18 Time: 11:37
--- NOTE | 2018-03-26 12:29 | PCM.SURG1 ---
Surgeon's Initial Post Op Note - Surgeon's Notes Surgeon: Candelario Godoy MD Bobbin Sorter: NONE Type of Anesthesia: Local Pre-Operative Diagnosis: Bilateral pleural effusions Operative Findings: US showed moderate right and left pleural effusion Post-Operative Diagnosis: Bilateral pleural effusions Operation Performed: Right and left pigtail pleural drainage catheter placement. Specimen/Specimens Removed: NONE Estimated Blood Loss: EBL {In ML}: 2 Blood Products Given: N/A Drains Used: No Drains Post-Op Condition: Fair Date of Surgery/Procedure: 03/26/18 Time of Surgery/Procedure: 12:25
--- NOTE | 2018-03-26 12:58 | CP.PCM.PN ---
Subjective - Date & Time of Evaluation Date of Evaluation: 03/26/18 Time of Evaluation: 12:28 - Subjective Subjective: Reason for consultation: Bilateral pleural effusions. Requested by:Dr. Luis Bolaños Pt s/e. Imaging studies(other than PET) and progress noted reviewed. 67 yo male PMH of rectal ca(bleeding) and other significant comorbidities presented to ER with hx of rectal bleeding. In the course of w/u; cXR-bilateral pleural effusions and cardiomegally. ct : Moderate bllateral pleural effusons and compressive atelectasis of both lungs + infiltrative changes at upper and mid-lung simpson. Thoracentesis yielded: Right-1.6 l and left-800cc. Negative cytology. No other pleural fluid results available. After thoracenteses( bilateral), the pt reaccumulated . Dr Godoy inserted Pigtail cath.. Please reconsult us if persistent effusions become a management issuue. a/p: 1. Bilateral pleural effusuions Etiol ?. 2. Recurrent bilateral effusions after thoracenteses. 3 Pigtail cath insertions by IR. 4. Reconsult us if persistent effusions become a management issue 5.d/w ICU attending.. Objective - Vital Signs/Intake and Output Vital Signs (last 24 hours): Temp Pulse Resp BP Pulse Ox 99 F 101 H 18 124/40 L 96 03/25/18 20:00 03/26/18 11:41 03/26/18 07:10 03/26/18 07:10 03/26/18 07:10 Intake and Output: 03/26/18 03/26/18 06:59 18:59 Intake Total 150 0 Output Total 120 120 Balance 30 -120 - Medications Medications: Current Medications Acetaminophen (Tylenol 325mg Tab) 650 mg PO Q4 PRN PRN Reason: Pain, Mild (1-3) Last Admin: 03/21/18 04:52 Dose: 650 mg Albumin Human (Albumin Human 25% (12.5 Gm/50 Ml)) 12.5 gm IV Q8 ANIYAH Stop: 03/26/18 14:01 Last Admin: 03/26/18 05:57 Dose: 12.5 gm Albuterol/Ipratropium (Duoneb 3 Mg/0.5 Mg (3 Ml) Ud) 3 ml INH RQ6 ANIYAH Last Admin: 03/26/18 08:07 Dose: 3 ml Ferrous Sulfate (Feosol) 325 mg PO TID [facility] Last Admin: 03/26/18 10:00 Dose: 325 mg Ceftriaxone Sodium 2 gm/ (Sodium Chloride) 100 mls @ 100 mls/hr IVPB Q12H [facility]CLUDES [facility] PRN Reason: Protocol Last Admin: 03/26/18 03:46 Dose: 100 mls/hr Pantoprazole Sodium (Protonix Ec Tab) 40 mg PO DAILY [facility] Last Admin: 03/26/18 10:00 Dose: 40 mg - Labs Labs: 03/26/18 06:13 03/26/18 06:13 PT 13.6 SECONDS (9.7-12.2) H 03/20/18 07:25 INR 1.2 03/20/18 07:25 APTT 32 SECONDS (21-34) D 03/20/18 07:25
--- NOTE | 2018-03-26 13:23 | RAD ---
Date of service: 03/26/2018 HISTORY: Status post right and left chest tubes placement. COMPARISON: Chest radiograph dated 03/25/2018. FINDINGS: LUNGS: Pulmonary vascular congestion. Bibasilar atelectasis. PLEURA: Near complete resolution of right pleural effusion post pigtail chest tube placement. Small residual left pleural effusion. No pneumothorax apparent. CARDIOVASCULAR: Atherosclerotic aortic calcifications. Cardiomediastinal silhouette stably enlarged. OSSEOUS STRUCTURES: Unchanged. VISUALIZED UPPER ABDOMEN: Normal. OTHER FINDINGS: New bibasilar pigtail chest tubes. IMPRESSION: New bibasilar pigtail chest tubes with near complete resolution of right pleural effusion. Small residual left pleural effusion and/or atelectasis versus consolidation.
--- NOTE | 2018-03-26 13:34 | US ---
PROCEDURE: Date of procedure: 03/26/2018 Procedure: 1. Placement of right and left chest tubes with ultrasound guidance, CPT 15457 Medications: 6cc 1 percent lidocaine. HISTORY: Bilateral pleural effusions, shortness of breath TECHNIQUE: Following informed consent and procedure time-out, limited ultrasound patient chests confirmed presence of moderate right and left pleural effusions. The patient's right chest was marked, prepped and draped in the usual sterile fashion. After the skin was anesthetized with 1% lidocaine and the pt was sedated by the anesthesiologist, a [place] catheter was advanced under ultrasound guidance into the pleural space. The catheter was exchanged over an 035 guidewire and tract was dilated to accommodate a 8.5 [place] pigtail catheter formed within the pleural space. There is return of slight serosanguinous fluid. The catheter was secured to patient's skin. A xeroform dressing was applied. The catheter was then attached to a pleurovac. Using the same technique above, an 8.5 [place] pigtail drainage catheter was formed within the left pleural space. The catheter secured to patient's skin and a pleura vac. Postoperative x-ray showed bilateral pigtail drainage catheters. IMPRESSION: Placement of right and left 8.5 [place] pigtail pleural drainage catheter for pleural effusion as detailed. There were no immediate complications.
[2018-03-26 15:09] LABS: HEMOGLOBIN 11.4 g/dL (12.0-18.0); MEAN CORPUSCULAR HEMOGLOBIN 28.4 pg (27.0-31.0); MEAN PLATELET VOLUME 7.4 fL (7.2-11.7); RBC 4.03 Mil/uL (4.40-5.90); RED CELL DISTRIBUTION WIDTH 18.4 % (11.5-14.5); WHITE BLOOD COUNT 10.7 K/uL (4.8-10.8)
[2018-03-26] MEDS: Lidocaine 5% Patch TD PRN (15:29)
[2018-03-26 21:07] LABS: CHOLESTEROL PLEURAL FLUID 16 mg/dL; GLUCOSE PLEURAL FLUID 148 mg/dL; LDH PLEURAL FLUID 90 U/L; TOTAL PROTEIN PLEURAL FLUID <3.0 g/dL
--- NOTE | 2018-03-26 23:19 | CP.PCM.PN ---
Subjective - Date & Time of Evaluation Date of Evaluation: 03/26/18 Time of Evaluation: 20:00 - Subjective Subjective: Patient had bilateral pigtail catheter insertion by IR. Pleural fluid negative for malignant cells. If pleural fluid keeps draining, the patient needs VATS with pleural biopsy. Objective - Vital Signs/Intake and Output Vital Signs (last 24 hours): Temp Pulse Resp BP Pulse Ox 97.8 F 93 H 14 102/34 L 98 03/26/18 20:00 03/26/18 23:10 03/26/18 23:10 03/26/18 23:10 03/26/18 23:10 Intake and Output: 03/26/18 03/27/18 18:59 06:59 Intake Total 730 200 Output Total 3270 100 Balance -2540 100 - Medications Medications: Current Medications Acetaminophen (Tylenol 325mg Tab) 650 mg PO Q4 PRN PRN Reason: Pain, Mild (1-3) Last Admin: 03/21/18 04:52 Dose: 650 mg Albuterol/Ipratropium (Duoneb 3 Mg/0.5 Mg (3 Ml) Ud) 3 ml INH RQ6 ANIYAH Last Admin: 03/26/18 19:11 Dose: 3 ml Ferrous Sulfate (Feosol) 325 mg PO TID ANIYAH Last Admin: 03/26/18 18:14 Dose: 325 mg Lidocaine (Lidoderm) 1 ea TD Q24H PRN PRN Reason: Pain - see dose instructions Last Admin: 03/26/18 15:29 Dose: 1 ea Morphine Sulfate (Morphine) 2 mg IVP Q4 PRN PRN Reason: Pain, severe (8-10) Last Admin: 03/26/18 21:25 Dose: 2 mg Pantoprazole Sodium (Protonix Ec Tab) 40 mg PO DAILY [facility] Last Admin: 03/26/18 10:00 Dose: 40 mg - Labs Labs: 03/26/18 15:04 03/26/18 06:13 PT 13.6 SECONDS (9.7-12.2) H 03/20/18 07:25 INR 1.2 03/20/18 07:25 APTT 32 SECONDS (21-34) D 03/20/18 07:25 - Constitutional Appears: No Acute Distress, Cachectic, Chronically Ill - Head Exam Head Exam: NORMOCEPHALIC - Eye Exam Eye Exam: Normal appearance - ENT Exam ENT Exam: Normal Exam - Neck Exam Neck Exam: Normal Inspection - Respiratory Exam Respiratory Exam: Rhonchi - Cardiovascular Exam Cardiovascular Exam: REGULAR RHYTHM - GI/Abdominal Exam GI & Abdominal Exam: Soft, Normal Bowel Sounds - Rectal Exam Rectal Exam: Deferred - Extremities Exam Extremities Exam: Normal Inspection - Back Exam Back Exam: NORMAL INSPECTION - Neurological Exam Neurological Exam: Alert, Awake, Oriented x3 - Psychiatric Exam Psychiatric exam: Anxious - Skin Skin Exam: Dry, Intact, Warm Assessment and Plan (1) Lower GI bleeding Status: Acute (2) Anemia Status: Acute (3) Pneumonia Status: Acute (4) Hyperkalemia Status: Resolved (5) Hyponatremia Status: Resolved (6) Acute diastolic (congestive) heart failure Status: Resolved (7) Acute bacterial endocarditis Status: Acute (8) Acute non-ST elevation myocardial infarction (NSTEMI) Status: Acute (9) Bilateral pleural effusion Assessment & Plan: Bilateral pigtail inserted. Status: Acute
[2018-03-27] MEDS: Albuterol-Ipratrop 3 mg / 0.5 (3 ml) UD INH SCH ×4 (02:09→19:08)
[2018-03-27 06:38] LABS: BASO # 0.1 K/uL (0.0-0.2); BASO % 0.5 % (0.0-2.0); HEMOGLOBIN 11.3 g/dL (12.0-18.0); LYMPH # 1.4 K/uL (1.0-4.3); LYMPH % 10.2 % (20.0-40.0); MEAN CORPUSCULAR HGB CONC 32.6 g/dL (33.0-37.0); MEAN PLATELET VOLUME 7.7 fL (7.2-11.7); MONO # 0.6 K/uL (0.0-0.8); MONO % 4.3 % (0.0-10.0); NEUT # 11.7 K/uL (1.8-7.0); RBC 4.03 Mil/uL (4.40-5.90); RED CELL DISTRIBUTION WIDTH 17.8 % (11.5-14.5); WHITE BLOOD COUNT 13.7 K/uL (4.8-10.8)
[2018-03-27 06:47] LABS: ALB/GLOB RATIO 0.9 (1.0-2.1); ALBUMIN 3.1 g/dL (3.5-5.0); ALT/SGPT 29 U/L (21-72); AST/SGOT 30 U/L (17-59); BLOOD UREA NITROGEN 45 mg/dL (9-20); CALCIUM 8.4 mg/dl (8.6-10.4); GFR NON-AFRICAN AMERICAN > 60
--- NOTE | 2018-03-27 08:29 | RAD ---
Date of service: 03/27/2018 PROCEDURE: CHEST RADIOGRAPH, 1 VIEW HISTORY: post-chest tubes insertion COMPARISON: 03/26/2018 FINDINGS: LUNGS: Improvement in opacity at both lung bases. Persistent patchy opacity in both upper lobes. Possible resolving pulmonary edema. PLEURA: Pleural pigtail catheter seen at both lung bases laterally. No pneumothorax. No pleural effusion identified. CARDIOVASCULAR: Normal heart size. Improved congestive change. OSSEOUS STRUCTURES: No significant abnormalities. VISUALIZED UPPER ABDOMEN: Normal. OTHER FINDINGS: None. IMPRESSION: Resolving pulmonary edema. Bilateral pleural pigtail catheters. No evidence of pleural effusion or pneumothorax.
[2018-03-27] MEDS: Pantoprazole 40 mg EC Tab PO SCH (09:38)
--- NOTE | 2018-03-27 09:40 | CP.CCUPN ---
<Luis Bolaños - Last Filed: 03/27/18 13:25> CCU Subjective - Physician Review Subjective (Free Text): Critical Care Progress Note: Patient seen and examined at bedside. No acute events overnight. Patient was on non rebreather overnight and currently on high flow. he states that his shortness of breath is better. Denies any chest pain. No further episodes of melena. No other complaints. 03/27/18 09:28 CCU Objective - Vital Signs / Intake & Output Vital Signs (Last 4 hours): Vital Signs Temp Pulse Resp BP Pulse Ox 03/27/18 09:07 99 H 16 113/33 L 96 03/27/18 09:00 98 H 13 97 03/27/18 08:00 95 H 18 106/35 L 95 03/27/18 07:33 97.5 F L 03/27/18 07:31 97 H 17 109/36 L 98 03/27/18 07:00 92 H 12 99/37 L 96 03/27/18 06:00 93 H 15 104/40 L 95 Intake and Output (Last 8hrs): Intake & Output 03/26/18 03/27/18 03/27/18 22:59 06:59 14:59 Intake Total 540 300 440 Output Total 2870 1170 150 Balance -2330 -870 290 Weight 114 lb 8 oz Intake: Intake, IV Amount 100 Right Forearm 100 Oral 440 300 440 Output: Chest Tube Drainage 2650 1070 Left Upper Mid-Axillary 1050 570 Chest Right Upper Mid-Axillary 1600 500 Chest Urine 220 100 150 Urine, Voided 220 100 150 Stool 0 Other: # Voids Urine, Voided 1 1 - Physical Exam Head: Positive for: Atraumatic, Normocephalic Pupils: Positive for: PERRL Extroacular Muscles: Positive for: Other (left eyeball with upward gaze deviation, blind in left eye, but R eye visual simpson grossly intact) Conjunctiva: Positive for: Normal. Negative for: Injected, Icteric Mouth: Positive for: Moist Mucous Membranes Pharnyx: Positive for: Other (unable to assess due to bipap mask) Nose (External): Positive for: Atraumatic. Negative for: Abrasion, Contusion, Laceration Neck: Positive for: Normal Range of Motion, Trachea Midline. Negative for: Lymphadenopathy Respiratory/Chest: Positive for: Good Air Exchange, Decreased Breath Sounds ( mildly decreased breath sounds at bilateral bases), Rales (bases ). Negative for: Respiratory Distress, Wheezes, Rhonchi, Tachypneic, Tender to Palpation Cardiovascular: Positive for: Regular Rate and Rhythm, Normal S1, S2. Negative for: Murmurs, Irregular Rhythm, Tachycardic, Bradycardic Abdomen: Positive for: Normal Bowel Sounds. Negative for: Tenderness, Distention, Rebound, Guarding, Mass/Organomegaly Upper Extremity: Positive for: Normal Inspection, NORMAL PULSES (+2 radials). Negative for: Cyanosis, Edema, Tenderness, Swelling, Erythema Lower Extremity: Positive for: Normal Inspection, NORMAL PULSES (+2 dorsalis pedis bilaterally). Negative for: Edema, CALF TENDERNESS, Cyanosis, Tenderness , Swelling, Erythema Neurological: Positive for: GCS=15, Speech Normal (muffled 2/2 Bipap mask, but otherwise normal speech, speech content normal) Skin: Positive for: Warm, Dry, Normal Color. Negative for: Rashes Psychiatric: Positive for: Oriented x 3 - Medications Active Medications: Active Medications Generic Name Dose Route Start Last Admin Trade Name Freq PRN Reason Stop Dose Admin Acetaminophen 650 mg 03/19/18 12:00 03/21/18 04:52 Tylenol 325mg Tab PO 650 mg Q4 PRN Administration Pain, Mild (1-3) Albuterol/Ipratropium 3 ml 03/24/18 14:00 03/27/18 08:02 Duoneb 3 Mg/0.5 Mg (3 Ml) Ud INH 3 ml RQ6 ANIYAH Administration Ferrous Sulfate 325 mg 03/19/18 10:00 03/26/18 18:14 Feosol PO 325 mg TID ANIYAH Administration Ceftriaxone Sodium 2 gm/ 100 mls @ 100 mls/hr 03/27/18 09:30 Sodium Chloride IVPB Q12H ANIYAH Protocol Lidocaine 1 ea 03/26/18 15:00 03/26/18 15:29 Lidoderm TD 1 ea Q24H PRN Administration Pain - see dose instructions Morphine Sulfate 2 mg 03/26/18 14:58 03/26/18 21:25 Morphine IVP 2 mg Q4 PRN Administration Pain, severe (8-10) Pantoprazole Sodium 40 mg 03/26/18 10:00 03/26/18 10:00 Protonix Ec Tab PO 40 mg DAILY ANIYAH Administration - Patient Studies Lab Studies: Microbiology Studies 03/25/18 12:12 Blood Culture - Preliminary Blood NO GROWTH AFTER 24 HOURS 03/25/18 12:12 Blood Culture - Preliminary Blood NO GROWTH AFTER 24 HOURS Lab Studies 03/27/18 03/27/18 03/26/18 Range/Units 06:26 06:26 15:04 WBC 13.7 H 10.7 (4.8-10.8) K/uL RBC 4.03 L 4.03 L (4.40-5.90) Mil/uL Hgb 11.3 L 11.4 L (12.0-18.0) g/dL Hct 34.6 L 34.6 L (35.0-51.0) % MCV 86.0 86.0 (80.0-94.0) fL MCH 28.0 28.4 (27.0-31.0) pg MCHC 32.6 L 33.0 (33.0-37.0) g/dL RDW 17.8 H 18.4 H (11.5-14.5) % Plt Count 352 379 (130-400) K/uL MPV 7.7 7.4 (7.2-11.7) fL Neut % (Auto) 85.0 H (50.0-75.0) % Lymph % (Auto) 10.2 L (20.0-40.0) % [place] % (Auto) 4.3 (0.0-10.0) % Eos % (Auto) 0.0 (0.0-4.0) % Baso % (Auto) 0.5 (0.0-2.0) % Neut # (Auto) 11.7 H (1.8-7.0) K/uL Lymph # (Auto) 1.4 (1.0-4.3) K/uL [place] # (Auto) 0.6 (0.0-0.8) K/uL Eos # (Auto) 0.0 (0.0-0.7) K/uL Baso # (Auto) 0.1 (0.0-0.2) K/uL Sodium 139 (132-148) mmol/L Potassium 5.2 (3.6-5.2) mmol/L Chloride 103 (98-107) mmol/L Carbon Dioxide 24 (22-30) mmol/L Anion Gap 18 (10-20) BUN 45 H (9-20) mg/dL Creatinine 1.0 (0.8-1.5) mg/dL Est GFR ( Amer) > 60 Est GFR (Non-Af Amer) > 60 Random Glucose 144 H (75-110) mg/dL Calcium 8.4 L (8.6-10.4) mg/dl Phosphorus 4.6 H (2.5-4.5) mg/dL Magnesium 2.6 H (1.6-2.3) mg/dL Total Bilirubin 0.6 (0.2-1.3) mg/dL AST 30 (17-59) U/L ALT 29 (21-72) U/L Alkaline Phosphatase 85 (38-126) U/L NT-Pro-B Natriuret Pep (0-900) pg/mL Total Protein 6.7 (6.3-8.3) g/dL Albumin 3.1 L (3.5-5.0) g/dL Globulin 3.6 (2.2-3.9) gm/dL Albumin/Globulin Ratio 0.9 L (1.0-2.1) Fluid Albumin g/dL Pleural Total Protein g/dL Pleural LDH U/L Pleural Glucose mg/dL Pleural Cholesterol mg/dL 03/26/18 03/24/18 03/24/18 Range/Units 06:13 12:06 12:06 WBC (4.8-10.8) K/uL RBC (4.40-5.90) Mil/uL Hgb (12.0-18.0) g/dL Hct (35.0-51.0) % MCV (80.0-94.0) fL MCH (27.0-31.0) pg MCHC (33.0-37.0) g/dL RDW (11.5-14.5) % Plt Count (130-400) K/uL MPV (7.2-11.7) fL Neut % (Auto) (50.0-75.0) % Lymph % (Auto) (20.0-40.0) % [place] % (Auto) (0.0-10.0) % Eos % (Auto) (0.0-4.0) % Baso % (Auto) (0.0-2.0) % Neut # (Auto) (1.8-7.0) K/uL Lymph # (Auto) (1.0-4.3) K/uL [place] # (Auto) (0.0-0.8) K/uL Eos # (Auto) (0.0-0.7) K/uL Baso # (Auto) (0.0-0.2) K/uL Sodium (132-148) mmol/L Potassium (3.6-5.2) mmol/L Chloride (98-107) mmol/L Carbon Dioxide (22-30) mmol/L Anion Gap (10-20) BUN (9-20) mg/dL Creatinine (0.8-1.5) mg/dL Est GFR ( Amer) Est GFR (Non-Af Amer) Random Glucose (75-110) mg/dL Calcium (8.6-10.4) mg/dl Phosphorus (2.5-4.5) mg/dL Magnesium (1.6-2.3) mg/dL Total Bilirubin (0.2-1.3) mg/dL AST (17-59) U/L ALT (21-72) U/L Alkaline Phosphatase (38-126) U/L NT-Pro-B Natriuret Pep 67219 H (0-900) pg/mL Total Protein (6.3-8.3) g/dL Albumin (3.5-5.0) g/dL Globulin (2.2-3.9) gm/dL Albumin/Globulin Ratio (1.0-2.1) Fluid Albumin 0.8 g/dL Pleural Total Protein <3.0 g/dL Pleural LDH 90 U/L Pleural Glucose 148 mg/dL Pleural Cholesterol 16 mg/dL Laboratory Results - last 24 hr 03/24/18 03/24/18 03/26/18 12:06 12:06 06:13 WBC RBC Hgb Hct MCV MCH MCHC RDW Plt Count MPV Neut % (Auto) Lymph % (Auto) [place] % (Auto) Eos % (Auto) Baso % (Auto) Neut # (Auto) Lymph # (Auto) [place] # (Auto) Eos # (Auto) Baso # (Auto) Sodium Potassium Chloride Carbon Dioxide Anion Gap BUN Creatinine Est GFR ( Amer) Est GFR (Non-Af Amer) Random Glucose Calcium Phosphorus Magnesium Total Bilirubin AST ALT Alkaline Phosphatase NT-Pro-B Natriuret Pep 47031 H Total Protein Albumin Globulin Albumin/Globulin Ratio Fluid Albumin 0.8 Pleural Total Protein <3.0 Pleural LDH 90 Pleural Glucose 148 Pleural Cholesterol 16 03/26/18 03/27/18 03/27/18 15:04 06:26 06:26 WBC 10.7 13.7 H RBC 4.03 L 4.03 L Hgb 11.4 L 11.3 L Hct 34.6 L 34.6 L MCV 86.0 86.0 MCH 28.4 28.0 MCHC 33.0 32.6 L RDW 18.4 H 17.8 H Plt Count 379 352 MPV 7.4 7.7 Neut % (Auto) 85.0 H Lymph % (Auto) 10.2 L [place] % (Auto) 4.3 Eos % (Auto) 0.0 Baso % (Auto) 0.5 Neut # (Auto) 11.7 H Lymph # (Auto) 1.4 [place] # (Auto) 0.6 Eos # (Auto) 0.0 Baso # (Auto) 0.1 Sodium 139 Potassium 5.2 Chloride 103 Carbon Dioxide 24 Anion Gap 18 BUN 45 H Creatinine 1.0 Est GFR ( Amer) > 60 Est GFR (Non-Af Amer) > 60 Random Glucose 144 H Calcium 8.4 L Phosphorus 4.6 H Magnesium 2.6 H Total Bilirubin 0.6 AST 30 ALT 29 Alkaline Phosphatase 85 NT-Pro-B Natriuret Pep Total Protein 6.7 Albumin 3.1 L Globulin 3.6 Albumin/Globulin Ratio 0.9 L Fluid Albumin Pleural Total Protein Pleural LDH Pleural Glucose Pleural Cholesterol Fingerstick Blood Sugar Results: 174 Review of Systems - Review of Systems All systems: reviewed and no additional remarkable complaints except Critical Care Progress Note - Nutrition Nutrition: Nutrition Category Date Time Status Liquid Diet [DIET] Diets 03/26/18 Breakfast Active Assessment/Plan - Assessment and Plan (Free Text) Assessment: 67 yo M with PMH of 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 s/p right-sided thoracentesis, 1.5L removed, and L sided thoracentesis today, 860ml removed. Repeat CT scan showed reaccumulated bilateral pleural effusions. S/p bilateral pigtail chest tubes. Neuro: -pt is awake and alert Pulm: -Repeat CT scan showed reaccumulated bilateral pleural effusions and b/l upper infiltrate -s/p bilateral pigtail chest tube insertion by IR yesterday, drainage overnight : R: 550ml and L: 570ml -Consulted cardiothoracic for recs -Follow up IR consult for recs -Septic work up neg for mycoplasma and Leigonella -maintain SaO2 > 92% -Encourage Incentive spirometer Cardio: -Hemodynamically stable -Cardiology consulted for possible АЛЕКСАНДР to r/o any aortic vegetations, (echo showed aortic valve thickening) - Currently on Rocephin -maintaining MAP > 65, -Echo 03/21: EF 41%, grade-1 abnormal relaxation patter on transmitral doppler, severely thickened aortic valve, cannot exclude aortic valve vegitation -Increasing trop from 03/20-03/21, concerning for NSTEMI; not currently on AC due to concern for bleeding - Started lasix 20mg PO daily GI: -HHD -daily protonix for GI ppx -GI signed off, recs radiation course as planned with Rad-onc Renal: -monitor I and O - replete electrolytes as needed Heme: -Monitor H/H -No AC at this time due to concern for bleeding, given rectal bleeding on presentation; SCDs for DVT ppx -Heme-onc following; continue radiation therapy, can start Xeloda as outpatient ID: -Repeat blood cx prelim neg thus far -WBCs dec 13.7, afebrile -Strep Viridans bacteremia, blood cultures positive x2 - repeat blood cx was neg -ID following, appreciate all recs - Restarted Rocephin which is sensitive to Strep Viridans bacteremia Endo: -maintain euglycemia Case and plan was reviewed, and discussed with attending, Dr. Breaux. <Marcelino Breaux - Last Filed: 03/27/18 14:34> CCU Subjective - Physician Review Subjective (Free Text): I have seen and examined the patient. Medical records, lab studies, and imaging were reviewed by me and a management plan was formulated on multidisciplinary rounds with resident, ICU nurse and RT. I agree with their documented assessment and plan. Patient has bilateral pleural effusions s/p pig tail draiange -continue to monitor chst tube output d/c when output <100 /24 hours 03/27/18 14:33 CCU Objective - Vital Signs / Intake & Output Vital Signs (Last 4 hours): Vital Signs Temp Pulse Resp BP Pulse Ox 03/27/18 13:49 17 03/27/18 13:07 113/35 L 03/27/18 13:06 95 H 14 100 03/27/18 13:00 96 H 14 100 03/27/18 12:07 101 H 15 112/32 L 100 03/27/18 12:00 97.7 F 104 H 18 100 03/27/18 11:07 102 H 16 114/33 L 100 03/27/18 11:00 102 H 16 100 Intake and Output (Last 8hrs): Intake & Output 03/26/18 03/27/18 03/27/18 22:59 06:59 14:59 Intake Total 540 300 560 Output Total 2870 1170 250 Balance -2330 -870 310 Weight 114 lb 8 oz Intake: Intake, IV Amount 100 Right Forearm 100 Oral 440 300 560 Lipid 0 Output: Chest Tube Drainage 2650 1070 Left Upper Mid-Axillary 1050 570 Chest Right Upper Mid-Axillary 1600 500 Chest Urine 220 100 250 Urine, Voided 220 100 250 Stool 0 Other: # Voids Urine, Voided 1 1 - Medications Active Medications: Active Medications Generic Name Dose Route Start Last Admin Trade Name Freq PRN Reason Stop Dose Admin Acetaminophen 650 mg 03/19/18 12:00 03/21/18 04:52 Tylenol 325mg Tab PO 650 mg Q4 PRN Administration Pain, Mild (1-3) Albuterol/Ipratropium 3 ml 03/24/18 14:00 03/27/18 13:44 Duoneb 3 Mg/0.5 Mg (3 Ml) Ud INH 3 ml RQ6 ANIYAH Administration Ferrous Sulfate 325 mg 03/19/18 10:00 03/27/18 13:33 Feosol PO 325 mg TID ANIYAH Administration Furosemide 20 mg 03/27/18 10:00 03/27/18 09:57 Lasix PO 20 mg DAILY ANIYAH Administration Ceftriaxone Sodium 2 gm/ 100 mls @ 100 mls/hr 03/27/18 09:30 03/27/18 10:00 Sodium Chloride IVPB 100 mls/hr Q12H ANIYAH Administration Protocol Lidocaine 1 ea 03/26/18 15:00 03/26/18 15:29 Lidoderm TD 1 ea Q24H PRN Administration Pain - see dose instructions Morphine Sulfate 2 mg 03/26/18 14:58 03/26/18 21:25 Morphine IVP 2 mg Q4 PRN Administration Pain, severe (8-10) Pantoprazole Sodium 40 mg 03/26/18 10:00 03/27/18 09:38 Protonix Ec Tab PO 40 mg DAILY ANIYAH Administration - Patient Studies Lab Studies: Microbiology Studies 03/25/18 12:12 Blood Culture - Preliminary Blood NO GROWTH AFTER 48 HOURS 03/25/18 12:12 Blood Culture - Preliminary Blood NO GROWTH AFTER 48 HOURS Lab Studies 03/27/18 03/27/18 03/27/18 Range/Units 09:10 06:26 06:26 WBC 13.7 H (4.8-10.8) K/uL RBC 4.03 L (4.40-5.90) Mil/uL Hgb 11.3 L (12.0-18.0) g/dL Hct 34.6 L (35.0-51.0) % MCV 86.0 (80.0-94.0) fL MCH 28.0 (27.0-31.0) pg MCHC 32.6 L (33.0-37.0) g/dL RDW 17.8 H (11.5-14.5) % Plt Count 352 (130-400) K/uL MPV 7.7 (7.2-11.7) fL Neut % (Auto) 85.0 H (50.0-75.0) % Lymph % (Auto) 10.2 L (20.0-40.0) % [place] % (Auto) 4.3 (0.0-10.0) % Eos % (Auto) 0.0 (0.0-4.0) % Baso % (Auto) 0.5 (0.0-2.0) % Neut # (Auto) 11.7 H (1.8-7.0) K/uL Lymph # (Auto) 1.4 (1.0-4.3) K/uL [place] # (Auto) 0.6 (0.0-0.8) K/uL Eos # (Auto) 0.0 (0.0-0.7) K/uL Baso # (Auto) 0.1 (0.0-0.2) K/uL Sodium 139 (132-148) mmol/L Potassium 5.2 (3.6-5.2) mmol/L Chloride 103 (98-107) mmol/L Carbon Dioxide 24 (22-30) mmol/L Anion Gap 18 (10-20) BUN 45 H (9-20) mg/dL Creatinine 1.0 (0.8-1.5) mg/dL Est GFR ( Amer) > 60 Est GFR (Non-Af Amer) > 60 Random Glucose 144 H (75-110) mg/dL Calcium 8.4 L (8.6-10.4) mg/dl Phosphorus 4.6 H (2.5-4.5) mg/dL Magnesium 2.6 H (1.6-2.3) mg/dL Total Bilirubin 0.6 (0.2-1.3) mg/dL AST 30 (17-59) U/L ALT 29 (21-72) U/L Alkaline Phosphatase 85 (38-126) U/L Total Protein 6.7 (6.3-8.3) g/dL Albumin 3.1 L (3.5-5.0) g/dL Globulin 3.6 (2.2-3.9) gm/dL Albumin/Globulin Ratio 0.9 L (1.0-2.1) Procalcitonin 0.16 L (0.19-0.49) NG/ML Fluid Albumin g/dL Pleural Total Protein g/dL Pleural LDH U/L Pleural Glucose mg/dL Pleural Cholesterol mg/dL 03/26/18 03/24/18 03/24/18 Range/Units 15:04 12:06 12:06 WBC 10.7 (4.8-10.8) K/uL RBC 4.03 L (4.40-5.90) Mil/uL Hgb 11.4 L (12.0-18.0) g/dL Hct 34.6 L (35.0-51.0) % MCV 86.0 (80.0-94.0) fL MCH 28.4 (27.0-31.0) pg MCHC 33.0 (33.0-37.0) g/dL RDW 18.4 H (11.5-14.5) % Plt Count 379 (130-400) K/uL MPV 7.4 (7.2-11.7) fL Neut % (Auto) (50.0-75.0) % Lymph % (Auto) (20.0-40.0) % [place] % (Auto) (0.0-10.0) % Eos % (Auto) (0.0-4.0) % Baso % (Auto) (0.0-2.0) % Neut # (Auto) (1.8-7.0) K/uL Lymph # (Auto) (1.0-4.3) K/uL [place] # (Auto) (0.0-0.8) K/uL Eos # (Auto) (0.0-0.7) K/uL Baso # (Auto) (0.0-0.2) K/uL Sodium (132-148) mmol/L Potassium (3.6-5.2) mmol/L Chloride (98-107) mmol/L Carbon Dioxide (22-30) mmol/L Anion Gap (10-20) BUN (9-20) mg/dL Creatinine (0.8-1.5) mg/dL Est GFR ( Amer) Est GFR (Non-Af Amer) Random Glucose (75-110) mg/dL Calcium (8.6-10.4) mg/dl Phosphorus (2.5-4.5) mg/dL Magnesium (1.6-2.3) mg/dL Total Bilirubin (0.2-1.3) mg/dL AST (17-59) U/L ALT (21-72) U/L Alkaline Phosphatase (38-126) U/L Total Protein (6.3-8.3) g/dL Albumin (3.5-5.0) g/dL Globulin (2.2-3.9) gm/dL Albumin/Globulin Ratio (1.0-2.1) Procalcitonin (0.19-0.49) NG/ML Fluid Albumin 0.8 g/dL Pleural Total Protein <3.0 g/dL Pleural LDH 90 U/L Pleural Glucose 148 mg/dL Pleural Cholesterol 16 mg/dL Laboratory Results - last 24 hr 03/24/18 03/24/18 03/26/18 12:06 12:06 15:04 WBC 10.7 RBC 4.03 L Hgb 11.4 L Hct 34.6 L MCV 86.0 MCH 28.4 MCHC 33.0 RDW 18.4 H Plt Count 379 MPV 7.4 Neut % (Auto) Lymph % (Auto) [place] % (Auto) Eos % (Auto) Baso % (Auto) Neut # (Auto) Lymph # (Auto) [place] # (Auto) Eos # (Auto) Baso # (Auto) Sodium Potassium Chloride Carbon Dioxide Anion Gap BUN Creatinine Est GFR ( Amer) Est GFR (Non-Af Amer) Random Glucose Calcium Phosphorus Magnesium Total Bilirubin AST ALT Alkaline Phosphatase Total Protein Albumin Globulin Albumin/Globulin Ratio Procalcitonin Fluid Albumin 0.8 Pleural Total Protein <3.0 Pleural LDH 90 Pleural Glucose 148 Pleural Cholesterol 16 03/27/18 03/27/18 03/27/18 06:26 06:26 09:10 WBC 13.7 H RBC 4.03 L Hgb 11.3 L Hct 34.6 L MCV 86.0 MCH 28.0 MCHC 32.6 L RDW 17.8 H Plt Count 352 MPV 7.7 Neut % (Auto) 85.0 H Lymph % (Auto) 10.2 L [place] % (Auto) 4.3 Eos % (Auto) 0.0 Baso % (Auto) 0.5 Neut # (Auto) 11.7 H Lymph # (Auto) 1.4 [place] # (Auto) 0.6 Eos # (Auto) 0.0 Baso # (Auto) 0.1 Sodium 139 Potassium 5.2 Chloride 103 Carbon Dioxide 24 Anion Gap 18 BUN 45 H Creatinine 1.0 Est GFR ( Amer) > 60 Est GFR (Non-Af Amer) > 60 Random Glucose 144 H Calcium 8.4 L Phosphorus 4.6 H Magnesium 2.6 H Total Bilirubin 0.6 AST 30 ALT 29 Alkaline Phosphatase 85 Total Protein 6.7 Albumin 3.1 L Globulin 3.6 Albumin/Globulin Ratio 0.9 L Procalcitonin 0.16 L Fluid Albumin Pleural Total Protein Pleural LDH Pleural Glucose Pleural Cholesterol Critical Care Progress Note - Nutrition Nutrition: Nutrition Category Date Time Status Heart Healthy Diet [DIET] Diets 03/27/18 Breakfast Active Assessment/Plan - Date & Time Date: 03/27/18 Time: 14:34
[2018-03-27] MEDS: cefTRIAXone 2 GM in Sodium Chloride 0.9% 100 ML IVPB SCH ×2 (10:00→20:30)
[2018-03-27] MEDS: Lidocaine 5% Patch TD PRN (19:45)
--- NOTE | 2018-03-27 22:58 | CP.PCM.PN ---
Subjective - Date & Time of Evaluation Date of Evaluation: 03/27/18 Time of Evaluation: 19:00 - Subjective Subjective: Patient less SOB. Both chest tubes still draining jeffrey fluid. CXR: expanded both lungs, infiltrates unchanged. Objective - Vital Signs/Intake and Output Vital Signs (last 24 hours): Temp Pulse Resp BP Pulse Ox 98.4 F 94 H 19 113/35 L 100 03/27/18 20:00 03/27/18 21:00 03/27/18 21:54 03/27/18 21:00 03/27/18 21:00 Intake and Output: 03/27/18 03/28/18 18:59 06:59 Intake Total 940 340 Output Total 1275 100 Balance -335 240 - Medications Medications: Current Medications Acetaminophen (Tylenol 325mg Tab) 650 mg PO Q4 PRN PRN Reason: Pain, Mild (1-3) Last Admin: 03/21/18 04:52 Dose: 650 mg Albuterol/Ipratropium (Duoneb 3 Mg/0.5 Mg (3 Ml) Ud) 3 ml INH RQ6 ANIYAH Last Admin: 03/27/18 19:08 Dose: 3 ml Ferrous Sulfate (Feosol) 325 mg PO TID ANIYAH Last Admin: 03/27/18 17:13 Dose: 325 mg Furosemide (Lasix) 20 mg PO DAILY [facility] Last Admin: 03/27/18 09:57 Dose: 20 mg Ceftriaxone Sodium 2 gm/ (Sodium Chloride) 100 mls @ 100 mls/hr IVPB Q12H ANIYAH PRN Reason: Protocol Last Admin: 03/27/18 20:30 Dose: 100 mls/hr Lidocaine (Lidoderm) 1 ea TD Q24H PRN PRN Reason: Pain - see dose instructions Last Admin: 03/27/18 19:45 Dose: 1 ea Morphine Sulfate (Morphine) 2 mg IVP Q4 PRN PRN Reason: Pain, severe (8-10) Last Admin: 03/27/18 19:40 Dose: 2 mg Pantoprazole Sodium (Protonix Ec Tab) 40 mg PO DAILY [facility] Last Admin: 03/27/18 09:38 Dose: 40 mg - Labs Labs: 03/27/18 06:26 03/27/18 06:26 PT 13.6 SECONDS (9.7-12.2) H 03/20/18 07:25 INR 1.2 03/20/18 07:25 APTT 32 SECONDS (21-34) D 03/20/18 07:25 - Constitutional Appears: No Acute Distress, Cachectic, Chronically Ill - Head Exam Head Exam: NORMAL INSPECTION - Eye Exam Eye Exam: Normal appearance - ENT Exam ENT Exam: Normal Exam - Neck Exam Neck Exam: Normal Inspection - Respiratory Exam Respiratory Exam: Rhonchi - Cardiovascular Exam Cardiovascular Exam: REGULAR RHYTHM - GI/Abdominal Exam GI & Abdominal Exam: Soft, Normal Bowel Sounds - Rectal Exam Rectal Exam: Deferred - Extremities Exam Extremities Exam: Normal Inspection - Back Exam Back Exam: NORMAL INSPECTION - Neurological Exam Neurological Exam: Alert, Awake, Oriented x3 - Psychiatric Exam Psychiatric exam: Anxious - Skin Skin Exam: Dry, Normal Color, Warm Assessment and Plan (1) Lower GI bleeding Assessment & Plan: Rectal bleeding has stopped. Status: Acute (2) Anemia Status: Acute (3) Pneumonia Assessment & Plan: On IV antibiotics. Status: Acute (4) Hyperkalemia Status: Resolved (5) Hyponatremia Status: Resolved (6) Acute diastolic (congestive) heart failure Status: Resolved (7) Acute bacterial endocarditis Status: Acute (8) Acute non-ST elevation myocardial infarction (NSTEMI) Status: Acute (9) Bilateral pleural effusion Assessment & Plan: Bilateral chest tubes. Status: Acute
[2018-03-28] MEDS: Albuterol-Ipratrop 3 mg / 0.5 (3 ml) UD INH SCH ×4 (01:30→19:50)
[2018-03-28 06:12] LABS: BASO % 0.2 % (0.0-2.0); LYMPH # 1.5 K/uL (1.0-4.3); LYMPH % 10.3 % (20.0-40.0); MEAN CELL VOLUME 86.2 fL (80.0-94.0); MEAN CORPUSCULAR HEMOGLOBIN 28.2 pg (27.0-31.0); MEAN CORPUSCULAR HGB CONC 32.8 g/dL (33.0-37.0); MEAN PLATELET VOLUME 8.4 fL (7.2-11.7); MONO # 0.7 K/uL (0.0-0.8); MONO % 4.7 % (0.0-10.0); NEUT # 12.1 K/uL (1.8-7.0); NEUT % 84.8 % (50.0-75.0); RBC 3.9 Mil/uL (4.40-5.90); RED CELL DISTRIBUTION WIDTH 18.1 % (11.5-14.5); WHITE BLOOD COUNT 14.3 K/uL (4.8-10.8)
[2018-03-28 06:27] LABS: ALB/GLOB RATIO 0.9 (1.0-2.1); ALBUMIN 3.1 g/dL (3.5-5.0); ALT/SGPT 39 U/L (21-72); AST/SGOT 36 U/L (17-59); BLOOD UREA NITROGEN 53 mg/dL (9-20); CALCIUM 8.7 mg/dl (8.6-10.4); GFR NON-AFRICAN AMERICAN > 60
--- NOTE | 2018-03-28 08:36 | RAD ---
Date of service: 03/28/2018 PROCEDURE: CHEST RADIOGRAPH, 1 VIEW HISTORY: s/p pigtail insertion COMPARISON: 03/27/2018. FINDINGS: LUNGS: There is pulmonary hyperinflation and persistent diffuse interstitial opacities. There is also pulmonary venous congestion. PLEURA: Stable position of bilateral pigtail catheters. No pneumothorax or pleural fluid seen. CARDIOVASCULAR: Persistent mild cardiomegaly. OSSEOUS STRUCTURES: No significant change. VISUALIZED UPPER ABDOMEN: Normal. OTHER FINDINGS: None. IMPRESSION: No significant interval change. Stable position of bilateral pigtail catheters.
[2018-03-28] MEDS: cefTRIAXone 2 GM in Sodium Chloride 0.9% 100 ML IVPB SCH ×2 (09:16→21:30)
[2018-03-28] MEDS: Pantoprazole 40 mg EC Tab PO SCH (09:18)
[2018-03-28 10:51] LABS: ARTERIAL BLOOD GAS HCO3 24.6 mmol/L (21-28); ARTERIAL BLOOD GAS HEMOGLOBIN 13.5 g/dL (11.7-17.4); ARTERIAL BLOOD GAS O2 SAT 96.6 % (95-98); ARTERIAL BLOOD GAS PCO2 32 mm/Hg (35-45); ARTERIAL BLOOD GAS PH 7.46 (7.35-7.45); ARTERIAL BLOOD GAS PO2 74 mm/Hg (80-100); ARTERIAL BLOOD GAS TCO2 23.8 mmol/L (22-28)
--- NOTE | 2018-03-28 11:12 | CP.CCUPN ---
<Luis Bolaños - Last Filed: 03/28/18 11:09> CCU Subjective - Physician Review Subjective (Free Text): Critical Care Progress Note: Patient seen and examined at bedside. No acute events overnight. Patient was on high flow currently on 3L nasal cannula. He does complain of being weak. . Denies any chest pain or sb. No episodes of melena. No other complaints. 03/28/18 11:09 CCU Objective - Vital Signs / Intake & Output Vital Signs (Last 4 hours): Vital Signs Resp BP 03/28/18 09:17 125/35 L 03/28/18 07:40 19 Intake and Output (Last 8hrs): Intake & Output 03/27/18 03/28/18 03/28/18 22:59 06:59 14:59 Intake Total 480 440 Output Total 1125 1000 0 Balance -645 -560 0 Weight 129 lb 1 oz Intake: Intake, IV Amount 100 Right Forearm 100 Oral 380 440 Output: Chest Tube Drainage 750 700 Left Upper Mid-Axillary 380 400 Chest Right Upper Mid-Axillary 370 300 Chest Urine 375 300 0 Urine, Voided 375 300 0 Other: # Voids Urine, Voided 1 1 - Physical Exam Head: Positive for: Atraumatic, Normocephalic Pupils: Positive for: PERRL Extroacular Muscles: Positive for: Other (left eyeball with upward gaze deviation, blind in left eye, but R eye visual simpson grossly intact) Conjunctiva: Positive for: Normal. Negative for: Injected, Icteric Mouth: Positive for: Moist Mucous Membranes Pharnyx: Positive for: Other (unable to assess due to bipap mask) Nose (External): Positive for: Atraumatic. Negative for: Abrasion, Contusion, Laceration Neck: Positive for: Normal Range of Motion, Trachea Midline. Negative for: Lymphadenopathy Respiratory/Chest: Positive for: Good Air Exchange, Decreased Breath Sounds ( mildly decreased breath sounds at bilateral bases), Rales (bases ). Negative for: Respiratory Distress, Wheezes, Rhonchi, Tachypneic, Tender to Palpation Cardiovascular: Positive for: Regular Rate and Rhythm, Normal S1, S2. Negative for: Murmurs, Irregular Rhythm, Tachycardic, Bradycardic Abdomen: Positive for: Normal Bowel Sounds. Negative for: Tenderness, Distention, Rebound, Guarding, Mass/Organomegaly Upper Extremity: Positive for: Normal Inspection, NORMAL PULSES (+2 radials). Negative for: Cyanosis, Edema, Tenderness, Swelling, Erythema Lower Extremity: Positive for: Normal Inspection, NORMAL PULSES (+2 dorsalis pedis bilaterally). Negative for: Edema, CALF TENDERNESS, Cyanosis, Tenderness , Swelling, Erythema Neurological: Positive for: GCS=15, Speech Normal (muffled 2/2 Bipap mask, but otherwise normal speech, speech content normal) Skin: Positive for: Warm, Dry, Normal Color. Negative for: Rashes Psychiatric: Positive for: Oriented x 3 - Medications Active Medications: Active Medications Generic Name Dose Route Start Last Admin Trade Name Freq PRN Reason Stop Dose Admin Acetaminophen 650 mg 03/19/18 12:00 03/21/18 04:52 Tylenol 325mg Tab PO 650 mg Q4 PRN Administration Pain, Mild (1-3) Albuterol/Ipratropium 3 ml 03/24/18 14:00 03/28/18 07:38 Duoneb 3 Mg/0.5 Mg (3 Ml) Ud INH 3 ml RQ6 ANIYAH Administration Ferrous Sulfate 325 mg 03/19/18 10:00 03/28/18 09:17 Feosol PO 325 mg TID ANIYAH Administration Furosemide 20 mg 03/27/18 10:00 03/28/18 09:17 Lasix PO 20 mg DAILY ANIYAH Administration Ceftriaxone Sodium 2 gm/ 100 mls @ 100 mls/hr 03/27/18 09:30 03/28/18 09:16 Sodium Chloride IVPB 100 mls/hr Q12H ANIYAH Administration Protocol Lidocaine 1 ea 03/26/18 15:00 03/27/18 19:45 Lidoderm TD 1 ea Q24H PRN Administration Pain - see dose instructions Morphine Sulfate 2 mg 03/26/18 14:58 03/28/18 00:50 Morphine IVP 2 mg Q4 PRN Administration Pain, severe (8-10) Pantoprazole Sodium 40 mg 03/26/18 10:00 03/28/18 09:18 Protonix Ec Tab PO 40 mg DAILY ANIYAH Administration - Patient Studies Lab Studies: Microbiology Studies 03/25/18 12:12 Blood Culture - Preliminary Blood NO GROWTH AFTER 48 HOURS 03/25/18 12:12 Blood Culture - Preliminary Blood NO GROWTH AFTER 48 HOURS Lab Studies 03/28/18 03/28/18 03/28/18 Range/Units 10:47 06:02 06:01 WBC 14.3 H (4.8-10.8) K/uL RBC 3.90 L (4.40-5.90) Mil/uL Hgb 11.0 L (12.0-18.0) g/dL Hct 33.6 L (35.0-51.0) % MCV 86.2 (80.0-94.0) fL MCH 28.2 (27.0-31.0) pg MCHC 32.8 L (33.0-37.0) g/dL RDW 18.1 H (11.5-14.5) % Plt Count 275 (130-400) K/uL MPV 8.4 (7.2-11.7) fL Neut % (Auto) 84.8 H (50.0-75.0) % Lymph % (Auto) 10.3 L (20.0-40.0) % [place] % (Auto) 4.7 (0.0-10.0) % Eos % (Auto) 0.0 (0.0-4.0) % Baso % (Auto) 0.2 (0.0-2.0) % Neut # (Auto) 12.1 H (1.8-7.0) K/uL Lymph # (Auto) 1.5 (1.0-4.3) K/uL [place] # (Auto) 0.7 (0.0-0.8) K/uL Eos # (Auto) 0.0 (0.0-0.7) K/uL Baso # (Auto) 0.0 (0.0-0.2) K/uL Puncture Site Lb pCO2 32 L (35-45) mm/Hg pO2 74 L (80-100) mm/Hg HCO3 24.6 (21-28) mmol/L ABG pH 7.46 H (7.35-7.45) ABG Total CO2 23.8 (22-28) mmol/L ABG O2 Saturation 96.6 (95-98) % ABG Base Excess -0.3 (-2.0-3.0) mmol/L ABG Hemoglobin 13.5 (11.7-17.4) g/dL ABG Carboxyhemoglobin 1.5 (0.5-1.5) % POC ABG HHb (Measured) 3.3 (0.0-5.0) % ABG Methemoglobin 1.1 (0.0-3.0) % [place] Test Na A-a O2 Difference 100.0 mm/Hg Respiratory Index 1.4 Hgb O2 Saturation 94.1 L (95.0-98.0) % Liter Flow 3.0 FiO2 30.0 % Sodium 136 (132-148) mmol/L Potassium 4.8 (3.6-5.2) mmol/L Chloride 101 (98-107) mmol/L Carbon Dioxide 26 (22-30) mmol/L Anion Gap 14 (10-20) BUN 53 H (9-20) mg/dL Creatinine 1.0 (0.8-1.5) mg/dL Est GFR ( Amer) > 60 Est GFR (Non-Af Amer) > 60 POC Glucose (mg/dL) (65-110) mg/dL Random Glucose 141 H (75-110) mg/dL Calcium 8.7 (8.6-10.4) mg/dl Phosphorus 4.0 (2.5-4.5) mg/dL Magnesium 2.7 H (1.6-2.3) mg/dL Total Bilirubin 0.5 (0.2-1.3) mg/dL AST 36 (17-59) U/L ALT 39 (21-72) U/L Alkaline Phosphatase 101 (38-126) U/L Total Protein 6.7 (6.3-8.3) g/dL Albumin 3.1 L (3.5-5.0) g/dL Globulin 3.6 (2.2-3.9) gm/dL Albumin/Globulin Ratio 0.9 L (1.0-2.1) 03/27/18 Range/Units 17:27 WBC (4.8-10.8) K/uL RBC (4.40-5.90) Mil/uL Hgb (12.0-18.0) g/dL Hct (35.0-51.0) % MCV (80.0-94.0) fL MCH (27.0-31.0) pg MCHC (33.0-37.0) g/dL RDW (11.5-14.5) % Plt Count (130-400) K/uL MPV (7.2-11.7) fL Neut % (Auto) (50.0-75.0) % Lymph % (Auto) (20.0-40.0) % [place] % (Auto) (0.0-10.0) % Eos % (Auto) (0.0-4.0) % Baso % (Auto) (0.0-2.0) % Neut # (Auto) (1.8-7.0) K/uL Lymph # (Auto) (1.0-4.3) K/uL [place] # (Auto) (0.0-0.8) K/uL Eos # (Auto) (0.0-0.7) K/uL Baso # (Auto) (0.0-0.2) K/uL Puncture Site pCO2 (35-45) mm/Hg pO2 (80-100) mm/Hg HCO3 (21-28) mmol/L ABG pH (7.35-7.45) ABG Total CO2 (22-28) mmol/L ABG O2 Saturation (95-98) % ABG Base Excess (-2.0-3.0) mmol/L ABG Hemoglobin (11.7-17.4) g/dL ABG Carboxyhemoglobin (0.5-1.5) % POC ABG HHb (Measured) (0.0-5.0) % ABG Methemoglobin (0.0-3.0) % [place] Test A-a O2 Difference mm/Hg Respiratory Index Hgb O2 Saturation (95.0-98.0) % Liter Flow FiO2 % Sodium (132-148) mmol/L Potassium (3.6-5.2) mmol/L Chloride (98-107) mmol/L Carbon Dioxide (22-30) mmol/L Anion Gap (10-20) BUN (9-20) mg/dL Creatinine (0.8-1.5) mg/dL Est GFR ( Amer) Est GFR (Non-Af Amer) POC Glucose (mg/dL) 158 H (65-110) mg/dL Random Glucose (75-110) mg/dL Calcium (8.6-10.4) mg/dl Phosphorus (2.5-4.5) mg/dL Magnesium (1.6-2.3) mg/dL Total Bilirubin (0.2-1.3) mg/dL AST (17-59) U/L ALT (21-72) U/L Alkaline Phosphatase (38-126) U/L Total Protein (6.3-8.3) g/dL Albumin (3.5-5.0) g/dL Globulin (2.2-3.9) gm/dL Albumin/Globulin Ratio (1.0-2.1) Laboratory Results - last 24 hr 03/27/18 03/28/18 03/28/18 17:27 06:01 06:02 WBC 14.3 H RBC 3.90 L Hgb 11.0 L Hct 33.6 L MCV 86.2 MCH 28.2 MCHC 32.8 L RDW 18.1 H Plt Count 275 MPV 8.4 Neut % (Auto) 84.8 H Lymph % (Auto) 10.3 L [place] % (Auto) 4.7 Eos % (Auto) 0.0 Baso % (Auto) 0.2 Neut # (Auto) 12.1 H Lymph # (Auto) 1.5 [place] # (Auto) 0.7 Eos # (Auto) 0.0 Baso # (Auto) 0.0 Puncture Site pCO2 pO2 HCO3 ABG pH ABG Total CO2 ABG O2 Saturation ABG Base Excess ABG Hemoglobin ABG Carboxyhemoglobin POC ABG HHb (Measured) ABG Methemoglobin [place] Test A-a O2 Difference Respiratory Index Hgb O2 Saturation Liter Flow FiO2 Sodium 136 Potassium 4.8 Chloride 101 Carbon Dioxide 26 Anion Gap 14 BUN 53 H Creatinine 1.0 Est GFR ( Amer) > 60 Est GFR (Non-Af Amer) > 60 POC Glucose (mg/dL) 158 H Random Glucose 141 H Calcium 8.7 Phosphorus 4.0 Magnesium 2.7 H Total Bilirubin 0.5 AST 36 ALT 39 Alkaline Phosphatase 101 Total Protein 6.7 Albumin 3.1 L Globulin 3.6 Albumin/Globulin Ratio 0.9 L 03/28/18 10:47 WBC RBC Hgb Hct MCV MCH MCHC RDW Plt Count MPV Neut % (Auto) Lymph % (Auto) [place] % (Auto) Eos % (Auto) Baso % (Auto) Neut # (Auto) Lymph # (Auto) [place] # (Auto) Eos # (Auto) Baso # (Auto) Puncture Site Lb pCO2 32 L pO2 74 L HCO3 24.6 ABG pH 7.46 H ABG Total CO2 23.8 ABG O2 Saturation 96.6 ABG Base Excess -0.3 ABG Hemoglobin 13.5 ABG Carboxyhemoglobin 1.5 POC ABG HHb (Measured) 3.3 ABG Methemoglobin 1.1 [place] Test Na A-a O2 Difference 100.0 Respiratory Index 1.4 Hgb O2 Saturation 94.1 L Liter Flow 3.0 FiO2 30.0 Sodium Potassium Chloride Carbon Dioxide Anion Gap BUN Creatinine Est GFR ( Amer) Est GFR (Non-Af Amer) POC Glucose (mg/dL) Random Glucose Calcium Phosphorus Magnesium Total Bilirubin AST ALT Alkaline Phosphatase Total Protein Albumin Globulin Albumin/Globulin Ratio Fingerstick Blood Sugar Results: 174 Review of Systems - Review of Systems All systems: reviewed and no additional remarkable complaints except Critical Care Progress Note - Nutrition Nutrition: Nutrition Category Date Time Status Heart Healthy Diet [DIET] Diets 03/27/18 Breakfast Active Assessment/Plan - Assessment and Plan (Free Text) Assessment: 67 yo M with PMH of 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 s/p right-sided thoracentesis, 1.5L removed, and L sided thoracentesis, 860ml removed. Repeat CT scan showed reaccumulated bilateral pleural effusions. S/p bilateral pigtail chest tubes. Neuro: -pt is awake and alert Pulm: - Currently off of the high flow and placed on nasal cannula - will follow up with -Repeat CT scan showed reaccumulated bilateral pleural effusions and b/l upper infiltrate -s/p bilateral pigtail chest tube insertion by IR yesterday, drainage overnight : R: 300ml and L: 400ml -Consulted cardiothoracic for recs -Follow up IR consult for recs -Septic work up neg for mycoplasma and Leigonella -maintain SaO2 > 92% -Encourage Incentive spirometer Cardio: -Hemodynamically stable -Cardiology consulted for possible АЛЕКСАНДР to r/o any aortic vegetations, (echo showed aortic valve thickening) - Currently on Rocephin -maintaining MAP > 65 -Echo 03/21: EF 41%, grade-1 abnormal relaxation patter on transmitral doppler, severely thickened aortic valve, cannot exclude aortic valve vegitation -Increasing trop from 03/20-03/21, concerning for NSTEMI; not currently on AC due to concern for bleeding -D/c lasix 20mg PO daily GI: -Patient doesn't have a well appetite; encouraged patient to eat well and ordered business consultant referral -HHD -daily protonix for GI ppx -GI signed off, recs radiation course as planned with Rad-onc Renal: -monitor I and O - replete electrolytes as needed Heme: -Monitor H/H -No AC at this time due to concern for bleeding, given rectal bleeding on presentation; SCDs for DVT ppx -Heme-onc following; continue radiation therapy, can start Xeloda as outpatient ID: -WBCs 14.3, afebrile -Repeat blood cx neg thus far -Strep Viridans bacteremia, blood cultures positive x2 -ID following, appreciate all recs -Cont Rocephin which is sensitive to Strep Viridans bacteremia Endo: -maintain euglycemia Plan for OOb to chair, PT and OT. Case and plan was reviewed, and discussed with attending, Dr. Alarcon <Nael Alarcon S - Last Filed: 03/28/18 16:39> CCU Objective - Vital Signs / Intake & Output Vital Signs (Last 4 hours): Vital Signs Pulse BP Pulse Ox 03/28/18 13:10 109/35 L 03/28/18 13:00 97 H 100 Intake and Output (Last 8hrs): Intake & Output 03/28/18 03/28/18 03/28/18 06:59 14:59 22:59 Intake Total 440 460 Output Total 1000 200 Balance -560 260 Weight 129 lb 1 oz Intake: Intake, IV Amount 100 Right Forearm 100 Oral 440 360 Output: Chest Tube Drainage 700 Left Upper Mid-Axillary 400 Chest Right Upper Mid-Axillary 300 Chest Urine 300 200 Urine, Voided 300 200 Other: # Voids Urine, Voided 1 - Medications Active Medications: Active Medications Generic Name Dose Route Start Last Admin Trade Name Freq PRN Reason Stop Dose Admin Acetaminophen 650 mg 03/19/18 12:00 03/21/18 04:52 Tylenol 325mg Tab PO 650 mg Q4 PRN Administration Pain, Mild (1-3) Albuterol/Ipratropium 3 ml 03/24/18 14:00 03/28/18 13:21 Duoneb 3 Mg/0.5 Mg (3 Ml) Ud INH 3 ml RQ6 ANIYAH Administration Ferrous Sulfate 325 mg 03/19/18 10:00 03/28/18 09:17 Feosol PO 325 mg TID ANIYAH Administration Furosemide 20 mg 03/27/18 10:00 03/28/18 09:17 Lasix PO 20 mg DAILY ANIYAH Administration Ceftriaxone Sodium 2 gm/ 100 mls @ 100 mls/hr 03/27/18 09:30 03/28/18 09:16 Sodium Chloride IVPB 100 mls/hr Q12H ANIYAH Administration Protocol Lidocaine 1 ea 03/26/18 15:00 03/27/18 19:45 Lidoderm TD 1 ea Q24H PRN Administration Pain - see dose instructions Morphine Sulfate 2 mg 03/26/18 14:58 03/28/18 00:50 Morphine IVP 2 mg Q4 PRN Administration Pain, severe (8-10) Pantoprazole Sodium 40 mg 03/26/18 10:00 03/28/18 09:18 Protonix Ec Tab PO 40 mg DAILY ANIYAH Administration - Patient Studies Lab Studies: Microbiology Studies 03/25/18 12:12 Blood Culture - Preliminary Blood NO GROWTH AFTER 3 DAYS 03/25/18 12:12 Blood Culture - Preliminary Blood NO GROWTH AFTER 3 DAYS Lab Studies 03/28/18 03/28/18 03/28/18 Range/Units 10:47 06:02 06:01 WBC 14.3 H (4.8-10.8) K/uL RBC 3.90 L (4.40-5.90) Mil/uL Hgb 11.0 L (12.0-18.0) g/dL Hct 33.6 L (35.0-51.0) % MCV 86.2 (80.0-94.0) fL MCH 28.2 (27.0-31.0) pg MCHC 32.8 L (33.0-37.0) g/dL RDW 18.1 H (11.5-14.5) % Plt Count 275 (130-400) K/uL MPV 8.4 (7.2-11.7) fL Neut % (Auto) 84.8 H (50.0-75.0) % Lymph % (Auto) 10.3 L (20.0-40.0) % [place] % (Auto) 4.7 (0.0-10.0) % Eos % (Auto) 0.0 (0.0-4.0) % Baso % (Auto) 0.2 (0.0-2.0) % Neut # (Auto) 12.1 H (1.8-7.0) K/uL Lymph # (Auto) 1.5 (1.0-4.3) K/uL [place] # (Auto) 0.7 (0.0-0.8) K/uL Eos # (Auto) 0.0 (0.0-0.7) K/uL Baso # (Auto) 0.0 (0.0-0.2) K/uL Puncture Site Lb pCO2 32 L (35-45) mm/Hg pO2 74 L (80-100) mm/Hg HCO3 24.6 (21-28) mmol/L ABG pH 7.46 H (7.35-7.45) ABG Total CO2 23.8 (22-28) mmol/L ABG O2 Saturation 96.6 (95-98) % ABG Base Excess -0.3 (-2.0-3.0) mmol/L ABG Hemoglobin 13.5 (11.7-17.4) g/dL ABG Carboxyhemoglobin 1.5 (0.5-1.5) % POC ABG HHb (Measured) 3.3 (0.0-5.0) % ABG Methemoglobin 1.1 (0.0-3.0) % [place] Test Na A-a O2 Difference 100.0 mm/Hg Respiratory Index 1.4 Hgb O2 Saturation 94.1 L (95.0-98.0) % Liter Flow 3.0 FiO2 30.0 % Sodium 136 (132-148) mmol/L Potassium 4.8 (3.6-5.2) mmol/L Chloride 101 (98-107) mmol/L Carbon Dioxide 26 (22-30) mmol/L Anion Gap 14 (10-20) BUN 53 H (9-20) mg/dL Creatinine 1.0 (0.8-1.5) mg/dL Est GFR ( Amer) > 60 Est GFR (Non-Af Amer) > 60 POC Glucose (mg/dL) (65-110) mg/dL Random Glucose 141 H (75-110) mg/dL Calcium 8.7 (8.6-10.4) mg/dl Phosphorus 4.0 (2.5-4.5) mg/dL Magnesium 2.7 H (1.6-2.3) mg/dL Total Bilirubin 0.5 (0.2-1.3) mg/dL AST 36 (17-59) U/L ALT 39 (21-72) U/L Alkaline Phosphatase 101 (38-126) U/L Total Protein 6.7 (6.3-8.3) g/dL Albumin 3.1 L (3.5-5.0) g/dL Globulin 3.6 (2.2-3.9) gm/dL Albumin/Globulin Ratio 0.9 L (1.0-2.1) 03/27/18 Range/Units 17:27 WBC (4.8-10.8) K/uL RBC (4.40-5.90) Mil/uL Hgb (12.0-18.0) g/dL Hct (35.0-51.0) % MCV (80.0-94.0) fL MCH (27.0-31.0) pg MCHC (33.0-37.0) g/dL RDW (11.5-14.5) % Plt Count (130-400) K/uL MPV (7.2-11.7) fL Neut % (Auto) (50.0-75.0) % Lymph % (Auto) (20.0-40.0) % [place] % (Auto) (0.0-10.0) % Eos % (Auto) (0.0-4.0) % Baso % (Auto) (0.0-2.0) % Neut # (Auto) (1.8-7.0) K/uL Lymph # (Auto) (1.0-4.3) K/uL [place] # (Auto) (0.0-0.8) K/uL Eos # (Auto) (0.0-0.7) K/uL Baso # (Auto) (0.0-0.2) K/uL Puncture Site pCO2 (35-45) mm/Hg pO2 (80-100) mm/Hg HCO3 (21-28) mmol/L ABG pH (7.35-7.45) ABG Total CO2 (22-28) mmol/L ABG O2 Saturation (95-98) % ABG Base Excess (-2.0-3.0) mmol/L ABG Hemoglobin (11.7-17.4) g/dL ABG Carboxyhemoglobin (0.5-1.5) % POC ABG HHb (Measured) (0.0-5.0) % ABG Methemoglobin (0.0-3.0) % [place] Test A-a O2 Difference mm/Hg Respiratory Index Hgb O2 Saturation (95.0-98.0) % Liter Flow FiO2 % Sodium (132-148) mmol/L Potassium (3.6-5.2) mmol/L Chloride (98-107) mmol/L Carbon Dioxide (22-30) mmol/L Anion Gap (10-20) BUN (9-20) mg/dL Creatinine (0.8-1.5) mg/dL Est GFR ( Amer) Est GFR (Non-Af Amer) POC Glucose (mg/dL) 158 H (65-110) mg/dL Random Glucose (75-110) mg/dL Calcium (8.6-10.4) mg/dl Phosphorus (2.5-4.5) mg/dL Magnesium (1.6-2.3) mg/dL Total Bilirubin (0.2-1.3) mg/dL AST (17-59) U/L ALT (21-72) U/L Alkaline Phosphatase (38-126) U/L Total Protein (6.3-8.3) g/dL Albumin (3.5-5.0) g/dL Globulin (2.2-3.9) gm/dL Albumin/Globulin Ratio (1.0-2.1) Laboratory Results - last 24 hr 03/27/18 03/28/18 03/28/18 17:27 06:01 06:02 WBC 14.3 H RBC 3.90 L Hgb 11.0 L Hct 33.6 L MCV 86.2 MCH 28.2 MCHC 32.8 L RDW 18.1 H Plt Count 275 MPV 8.4 Neut % (Auto) 84.8 H Lymph % (Auto) 10.3 L [place] % (Auto) 4.7 Eos % (Auto) 0.0 Baso % (Auto) 0.2 Neut # (Auto) 12.1 H Lymph # (Auto) 1.5 [place] # (Auto) 0.7 Eos # (Auto) 0.0 Baso # (Auto) 0.0 Puncture Site pCO2 pO2 HCO3 ABG pH ABG Total CO2 ABG O2 Saturation ABG Base Excess ABG Hemoglobin ABG Carboxyhemoglobin POC ABG HHb (Measured) ABG Methemoglobin [place] Test A-a O2 Difference Respiratory Index Hgb O2 Saturation Liter Flow FiO2 Sodium 136 Potassium 4.8 Chloride 101 Carbon Dioxide 26 Anion Gap 14 BUN 53 H Creatinine 1.0 Est GFR ( Amer) > 60 Est GFR (Non-Af Amer) > 60 POC Glucose (mg/dL) 158 H Random Glucose 141 H Calcium 8.7 Phosphorus 4.0 Magnesium 2.7 H Total Bilirubin 0.5 AST 36 ALT 39 Alkaline Phosphatase 101 Total Protein 6.7 Albumin 3.1 L Globulin 3.6 Albumin/Globulin Ratio 0.9 L 03/28/18 10:47 WBC RBC Hgb Hct MCV MCH MCHC RDW Plt Count MPV Neut % (Auto) Lymph % (Auto) [place] % (Auto) Eos % (Auto) Baso % (Auto) Neut # (Auto) Lymph # (Auto) [place] # (Auto) Eos # (Auto) Baso # (Auto) Puncture Site Lb pCO2 32 L pO2 74 L HCO3 24.6 ABG pH 7.46 H ABG Total CO2 23.8 ABG O2 Saturation 96.6 ABG Base Excess -0.3 ABG Hemoglobin 13.5 ABG Carboxyhemoglobin 1.5 POC ABG HHb (Measured) 3.3 ABG Methemoglobin 1.1 [place] Test Na A-a O2 Difference 100.0 Respiratory Index 1.4 Hgb O2 Saturation 94.1 L Liter Flow 3.0 FiO2 30.0 Sodium Potassium Chloride Carbon Dioxide Anion Gap BUN Creatinine Est GFR ( Amer) Est GFR (Non-Af Amer) POC Glucose (mg/dL) Random Glucose Calcium Phosphorus Magnesium Total Bilirubin AST ALT Alkaline Phosphatase Total Protein Albumin Globulin Albumin/Globulin Ratio Critical Care Progress Note - Nutrition Nutrition: Nutrition Category Date Time Status Heart Healthy Diet [DIET] Diets 03/27/18 Breakfast Active Attending/Attestation - Attestation I have personally seen and examined this patient.: Yes I have fully participated in the care of the patient.: Yes I have reviewed all pertinent clinical information: Yes Notes (Text): 03/28/18 16:37 patient seen and examined in the intensive care unit. Status post bilateral pigtail catheter insertion Patient is awake and responsive On 3 L nasal cannula saturation upper 90s Hold Lasix Continue antibiotics for strep viridans Follow up ABG and chest x-ray Improve nutritional status
[2018-03-28] MEDS: Lidocaine 5% Patch TD PRN (21:53)
--- NOTE | 2018-03-28 23:38 | CP.PCM.PN ---
Subjective - Date & Time of Evaluation Date of Evaluation: 03/28/18 Time of Evaluation: 13:00 - Subjective Subjective: Patient less SOB, on O2 by N/C. Bilateral chest tubes still draining jeffrey fluid. Afebrile. Objective - Vital Signs/Intake and Output Vital Signs (last 24 hours): Temp Pulse Resp BP Pulse Ox 97.8 F 102 H 22 113/34 L 98 03/28/18 16:00 03/28/18 19:00 03/28/18 19:00 03/28/18 19:00 03/28/18 19:00 Intake and Output: 03/28/18 03/29/18 18:59 06:59 Intake Total 940 Output Total 1230 0 Balance -290 0 - Medications Medications: Current Medications Acetaminophen (Tylenol 325mg Tab) 650 mg PO Q4 PRN PRN Reason: Pain, Mild (1-3) Last Admin: 03/21/18 04:52 Dose: 650 mg Albuterol/Ipratropium (Duoneb 3 Mg/0.5 Mg (3 Ml) Ud) 3 ml INH RQ6 [facility] Last Admin: 03/28/18 19:50 Dose: 3 ml Ferrous Sulfate (Feosol) 325 mg PO TID [facility] Last Admin: 03/28/18 19:34 Dose: 325 mg Furosemide (Lasix) 20 mg PO DAILY [facility] Last Admin: 03/28/18 09:17 Dose: 20 mg Ceftriaxone Sodium 2 gm/ (Sodium Chloride) 100 mls @ 100 mls/hr IVPB Q12H ANIYAH PRN Reason: Protocol Last Admin: 03/28/18 21:30 Dose: 100 mls/hr Lidocaine (Lidoderm) 1 ea TD Q24H PRN PRN Reason: Pain - see dose instructions Last Admin: 03/28/18 21:53 Dose: 1 ea Morphine Sulfate (Morphine) 2 mg IVP Q4 PRN PRN Reason: Pain, severe (8-10) Last Admin: 03/28/18 21:50 Dose: 2 mg Pantoprazole Sodium (Protonix Ec Tab) 40 mg PO DAILY [facility] Last Admin: 03/28/18 09:18 Dose: 40 mg - Labs Labs: 03/28/18 06:02 03/28/18 06:01 PT 13.6 SECONDS (9.7-12.2) H 03/20/18 07:25 INR 1.2 03/20/18 07:25 APTT 32 SECONDS (21-34) D 03/20/18 07:25 - Constitutional Appears: No Acute Distress, Cachectic, Chronically Ill - Head Exam Head Exam: NORMOCEPHALIC - Eye Exam Eye Exam: Normal appearance Additional comments: Left eye blindness. - ENT Exam ENT Exam: Normal Exam - Neck Exam Neck Exam: Normal Inspection - Respiratory Exam Respiratory Exam: Rhonchi Additional comments: Rhonchi herd at both bases. - Cardiovascular Exam Cardiovascular Exam: REGULAR RHYTHM - GI/Abdominal Exam GI & Abdominal Exam: Soft, Normal Bowel Sounds - Rectal Exam Rectal Exam: Deferred - Exam Exam: Uretheral Discharge - Extremities Exam Extremities Exam: Normal Inspection - Back Exam Back Exam: NORMAL INSPECTION - Neurological Exam Neurological Exam: Alert, Awake, Oriented x3 - Psychiatric Exam Psychiatric exam: Anxious - Skin Skin Exam: Dry, Intact Assessment and Plan (1) Lower GI bleeding Assessment & Plan: No more rectal bleeding for now. Status: Acute (2) Anemia Status: Acute (3) Pneumonia Assessment & Plan: On IV Rocephin Status: Acute (4) Hyperkalemia Status: Resolved (5) Hyponatremia Status: Resolved (6) Acute diastolic (congestive) heart failure Status: Resolved (7) Acute bacterial endocarditis Assessment & Plan: On IV Rocephin. Status: Acute (8) Acute non-ST elevation myocardial infarction (NSTEMI) Assessment & Plan: Stable for now.chest tube. Status: Acute (9) Bilateral pleural effusion Status: Acute
[2018-03-29] MEDS: Albuterol-Ipratrop 3 mg / 0.5 (3 ml) UD INH SCH ×4 (01:09→19:57)
[2018-03-29 05:57] LABS: CEA PLEURAL FLUID 0.5 ng/mL (<10.0)
[2018-03-29 05:57] LABS: CEA PLEURAL FLUID <0.5 ng/mL (<10.0)
[2018-03-29 07:00] LABS: BASO # 0.1 K/uL (0.0-0.2); BASO % 0.6 % (0.0-2.0); HEMOGLOBIN 11.7 g/dL (12.0-18.0); LYMPH % 8.3 % (20.0-40.0); MEAN CELL VOLUME 86.1 fL (80.0-94.0); MEAN CORPUSCULAR HEMOGLOBIN 28.6 pg (27.0-31.0); MEAN CORPUSCULAR HGB CONC 33.2 g/dL (33.0-37.0); MEAN PLATELET VOLUME 7.8 fL (7.2-11.7); MONO # 0.5 K/uL (0.0-0.8); MONO % 4.3 % (0.0-10.0); NEUT # 10.2 K/uL (1.8-7.0); NEUT % 86.8 % (50.0-75.0); PLATELET COUNT 301 K/uL (130-400); RBC 4.08 Mil/uL (4.40-5.90); RED CELL DISTRIBUTION WIDTH 18.1 % (11.5-14.5); WHITE BLOOD COUNT 11.7 K/uL (4.8-10.8)
[2018-03-29 07:12] LABS: ALB/GLOB RATIO 0.9 (1.0-2.1); ALBUMIN 3.2 g/dL (3.5-5.0); ALT/SGPT 42 U/L (21-72); AST/SGOT 32 U/L (17-59); BLOOD UREA NITROGEN 57 mg/dL (9-20); CALCIUM 8.5 mg/dl (8.6-10.4); GFR NON-AFRICAN AMERICAN 55
[2018-03-29 09:53] LABS: BANDS 3 % (0-2); LYMPHOCYTE 9 % (20-40); MONOCYTE 9 % (0-10); NEUTROPHIL 79 % (50-75); TOTAL CELLS COUNTED 100
[2018-03-29 09:54] LABS: ANISOCYTOSIS SLIGHT; PLATELET ESTIMATE NORMAL (NORMAL)
[2018-03-29 09:55] LABS: GIANT PLATELETS PRESENT; LARGE PLATELETS PRESENT; OVALOCYTES SLIGHT; SPHEROCYTES SLIGHT
--- NOTE | 2018-03-29 10:15 | CP.CCUPN ---
<Min Kelsey - Last Filed: 03/29/18 11:26> CCU Subjective - Physician Review Subjective (Free Text): 03/29/18 10:31 Patient seen and examined at bedside in the ICU. No acute events reported overnight. Resting in bed today, only complaints are discomfort at site of pigtail catheters, nausea, and fatigue. Episode of retching without actual emesis output this morning. Both catheters observed to have serosanginous drainage, no constanza blood or pus appreciated. Patient breathing and satting well on 3L NC. CCU Objective - Vital Signs / Intake & Output Vital Signs (Last 4 hours): Vital Signs Pulse Resp BP Pulse Ox 03/29/18 08:00 93 H 21 111/36 L 99 03/29/18 07:00 89 13 102/34 L 97 Intake and Output (Last 8hrs): Intake & Output 03/28/18 03/29/18 03/29/18 22:59 06:59 14:59 Intake Total 440 120 Output Total 1005 120 740 Balance -565 0 -740 Weight 58.968 kg Intake: Intake, IV Amount 100 Right Forearm 100 Oral 340 120 Output: Chest Tube Drainage 730 490 Left Upper Mid-Axillary 350 340 Chest Right Upper Mid-Axillary 380 150 Chest Urine 275 120 250 Urine, Voided 275 120 250 Other: # Voids Urine, Voided 1 - Physical Exam Head: Positive for: Atraumatic, Normocephalic Pupils: Positive for: PERRL Extroacular Muscles: Positive for: Other (left eyeball with upward gaze deviation, blind in left eye, but R eye visual simpson grossly intact) Conjunctiva: Positive for: Normal. Negative for: Injected, Icteric Mouth: Positive for: Moist Mucous Membranes. Negative for: Dry, Drooling Pharnyx: Positive for: Normal Nose (External): Positive for: Atraumatic, Other (wearing NC 3L O2). Negative for: Abrasion, Contusion, Laceration Nose (Internal): Positive for: No Active Bleeding. Negative for: Epistaxis Neck: Positive for: Normal Range of Motion, Trachea Midline. Negative for: Lymphadenopathy Respiratory/Chest: Positive for: Good Air Exchange, Decreased Breath Sounds ( mildly decreased breath sounds at bilateral bases), Other (pigtail chest tubes bilaterally, draining serosanguinous fluid). Negative for: Respiratory Distress , Wheezes, Rhonchi, Tachypneic, Tender to Palpation Cardiovascular: Positive for: Regular Rate and Rhythm, Normal S1, S2. Negative for: Murmurs, Irregular Rhythm, Tachycardic, Bradycardic Abdomen: Positive for: Normal Bowel Sounds. Negative for: Tenderness, Distention, Rebound, Guarding, Mass/Organomegaly Upper Extremity: Positive for: Normal Inspection, NORMAL PULSES (+2 radials). Negative for: Cyanosis, Edema, Tenderness, Swelling, Erythema Lower Extremity: Positive for: Normal Inspection, NORMAL PULSES (+2 dorsalis pedis bilaterally). Negative for: Edema, CALF TENDERNESS, Cyanosis, Tenderness , Swelling, Erythema Neurological: Positive for: GCS=15, Speech Normal, Motor Func Grossly Intact, Other (following commands appropriately) Skin: Positive for: Warm, Dry, Normal Color. Negative for: Rashes Psychiatric: Positive for: Alert, Oriented x 3, Normal Affect, Normal Mood - Medications Active Medications: Active Medications Generic Name Dose Route Start Last Admin Trade Name Freq PRN Reason Stop Dose Admin Acetaminophen 650 mg 03/19/18 12:00 03/29/18 08:56 Tylenol 325mg Tab PO 650 mg Q4 PRN Administration Pain, Mild (1-3) Albuterol/Ipratropium 3 ml 03/24/18 14:00 03/29/18 08:04 Duoneb 3 Mg/0.5 Mg (3 Ml) Ud INH 3 ml RQ6 ANIYAH Administration Ferrous Sulfate 325 mg 03/19/18 10:00 03/28/18 19:34 Feosol PO 325 mg TID ANIYAH Administration Furosemide 20 mg 03/27/18 10:00 03/28/18 09:17 Lasix PO 20 mg DAILY ANIYAH Administration Ceftriaxone Sodium 2 gm/ 100 mls @ 100 mls/hr 03/27/18 09:30 03/28/18 21:30 Sodium Chloride IVPB 100 mls/hr Q12H ANIYAH Administration Protocol Lidocaine 1 ea 03/26/18 15:00 03/28/18 21:53 Lidoderm TD 1 ea Q24H PRN Administration Pain - see dose instructions Morphine Sulfate 2 mg 03/26/18 14:58 03/28/18 21:50 Morphine IVP 2 mg Q4 PRN Administration Pain, severe (8-10) Pantoprazole Sodium 40 mg 03/26/18 10:00 03/28/18 09:18 Protonix Ec Tab PO 40 mg DAILY ANIYAH Administration - Patient Studies Lab Studies: Microbiology Studies 03/25/18 12:12 Blood Culture - Preliminary Blood NO GROWTH AFTER 3 DAYS 03/25/18 12:12 Blood Culture - Preliminary Blood NO GROWTH AFTER 3 DAYS Lab Studies 03/29/18 03/29/18 03/28/18 Range/Units 06:57 06:57 10:47 WBC 11.7 H (4.8-10.8) K/uL RBC 4.08 L (4.40-5.90) Mil/uL Hgb 11.7 L (12.0-18.0) g/dL Hct 35.2 (35.0-51.0) % MCV 86.1 (80.0-94.0) fL MCH 28.6 (27.0-31.0) pg MCHC 33.2 (33.0-37.0) g/dL RDW 18.1 H (11.5-14.5) % Plt Count 301 (130-400) K/uL MPV 7.8 (7.2-11.7) fL Neut % (Auto) 86.8 H (50.0-75.0) % Lymph % (Auto) 8.3 L (20.0-40.0) % [place] % (Auto) 4.3 (0.0-10.0) % Eos % (Auto) 0.0 (0.0-4.0) % Baso % (Auto) 0.6 (0.0-2.0) % Neut # (Auto) 10.2 H (1.8-7.0) K/uL Lymph # (Auto) 1.0 (1.0-4.3) K/uL [place] # (Auto) 0.5 (0.0-0.8) K/uL Eos # (Auto) 0.0 (0.0-0.7) K/uL Baso # (Auto) 0.1 (0.0-0.2) K/uL Neutrophils % (Manual) 79 H (50-75) % Band Neutrophils % 3 H (0-2) % Lymphocytes % (Manual) 9 L (20-40) % Monocytes % (Manual) 9 (0-10) % Platelet Estimate Normal (NORMAL) Large Platelets Present Giant Platelets Present Anisocytosis (manual) Slight Spherocytes Slight Ovalocytes Slight Puncture Site Lb pCO2 32 L (35-45) mm/Hg pO2 74 L (80-100) mm/Hg HCO3 24.6 (21-28) mmol/L ABG pH 7.46 H (7.35-7.45) ABG Total CO2 23.8 (22-28) mmol/L ABG O2 Saturation 96.6 (95-98) % ABG Base Excess -0.3 (-2.0-3.0) mmol/L ABG Hemoglobin 13.5 (11.7-17.4) g/dL ABG Carboxyhemoglobin 1.5 (0.5-1.5) % POC ABG HHb (Measured) 3.3 (0.0-5.0) % ABG Methemoglobin 1.1 (0.0-3.0) % [place] Test Na A-a O2 Difference 100.0 mm/Hg Respiratory Index 1.4 Hgb O2 Saturation 94.1 L (95.0-98.0) % Liter Flow 3.0 FiO2 30.0 % Sodium 133 (132-148) mmol/L Potassium 4.8 (3.6-5.2) mmol/L Chloride 98 (98-107) mmol/L Carbon Dioxide 26 (22-30) mmol/L Anion Gap 15 (10-20) BUN 57 H (9-20) mg/dL Creatinine 1.3 (0.8-1.5) mg/dL Est GFR ( Amer) > 60 Est GFR (Non-Af Amer) 55 Random Glucose 147 H (75-110) mg/dL Calcium 8.5 L (8.6-10.4) mg/dl Phosphorus 4.6 H (2.5-4.5) mg/dL Magnesium 2.8 H (1.6-2.3) mg/dL Total Bilirubin 0.4 (0.2-1.3) mg/dL AST 32 (17-59) U/L ALT 42 (21-72) U/L Alkaline Phosphatase 114 (38-126) U/L Total Protein 6.8 (6.3-8.3) g/dL Albumin 3.2 L (3.5-5.0) g/dL Globulin 3.6 (2.2-3.9) gm/dL Albumin/Globulin Ratio 0.9 L (1.0-2.1) Fluid Albumin g/dL Pleural Fluid CEA (<10.0) ng/mL 03/24/18 03/22/18 Range/Units 12:08 11:20 WBC (4.8-10.8) K/uL RBC (4.40-5.90) Mil/uL Hgb (12.0-18.0) g/dL Hct (35.0-51.0) % MCV (80.0-94.0) fL MCH (27.0-31.0) pg MCHC (33.0-37.0) g/dL RDW (11.5-14.5) % Plt Count (130-400) K/uL MPV (7.2-11.7) fL Neut % (Auto) (50.0-75.0) % Lymph % (Auto) (20.0-40.0) % [place] % (Auto) (0.0-10.0) % Eos % (Auto) (0.0-4.0) % Baso % (Auto) (0.0-2.0) % Neut # (Auto) (1.8-7.0) K/uL Lymph # (Auto) (1.0-4.3) K/uL [place] # (Auto) (0.0-0.8) K/uL Eos # (Auto) (0.0-0.7) K/uL Baso # (Auto) (0.0-0.2) K/uL Neutrophils % (Manual) (50-75) % Band Neutrophils % (0-2) % Lymphocytes % (Manual) (20-40) % Monocytes % (Manual) (0-10) % Platelet Estimate (NORMAL) Large Platelets Giant Platelets Anisocytosis (manual) Spherocytes Ovalocytes Puncture Site pCO2 (35-45) mm/Hg pO2 (80-100) mm/Hg HCO3 (21-28) mmol/L ABG pH (7.35-7.45) ABG Total CO2 (22-28) mmol/L ABG O2 Saturation (95-98) % ABG Base Excess (-2.0-3.0) mmol/L ABG Hemoglobin (11.7-17.4) g/dL ABG Carboxyhemoglobin (0.5-1.5) % POC ABG HHb (Measured) (0.0-5.0) % ABG Methemoglobin (0.0-3.0) % [place] Test A-a O2 Difference mm/Hg Respiratory Index Hgb O2 Saturation (95.0-98.0) % Liter Flow FiO2 % Sodium (132-148) mmol/L Potassium (3.6-5.2) mmol/L Chloride (98-107) mmol/L Carbon Dioxide (22-30) mmol/L Anion Gap (10-20) BUN (9-20) mg/dL Creatinine (0.8-1.5) mg/dL Est GFR ( Amer) Est GFR (Non-Af Amer) Random Glucose (75-110) mg/dL Calcium (8.6-10.4) mg/dl Phosphorus (2.5-4.5) mg/dL Magnesium (1.6-2.3) mg/dL Total Bilirubin (0.2-1.3) mg/dL AST (17-59) U/L ALT (21-72) U/L Alkaline Phosphatase (38-126) U/L Total Protein (6.3-8.3) g/dL Albumin (3.5-5.0) g/dL Globulin (2.2-3.9) gm/dL Albumin/Globulin Ratio (1.0-2.1) Fluid Albumin 0.7 g/dL Pleural Fluid CEA 0.5 <0.5 (<10.0) ng/mL Laboratory Results - last 24 hr 03/22/18 03/24/18 03/28/18 11:20 12:08 10:47 WBC RBC Hgb Hct MCV MCH MCHC RDW Plt Count MPV Neut % (Auto) Lymph % (Auto) [place] % (Auto) Eos % (Auto) Baso % (Auto) Neut # (Auto) Lymph # (Auto) [place] # (Auto) Eos # (Auto) Baso # (Auto) Neutrophils % (Manual) Band Neutrophils % Lymphocytes % (Manual) Monocytes % (Manual) Platelet Estimate Large Platelets Giant Platelets Anisocytosis (manual) Spherocytes Ovalocytes Puncture Site Lb pCO2 32 L pO2 74 L HCO3 24.6 ABG pH 7.46 H ABG Total CO2 23.8 ABG O2 Saturation 96.6 ABG Base Excess -0.3 ABG Hemoglobin 13.5 ABG Carboxyhemoglobin 1.5 POC ABG HHb (Measured) 3.3 ABG Methemoglobin 1.1 [place] Test Na A-a O2 Difference 100.0 Respiratory Index 1.4 Hgb O2 Saturation 94.1 L Liter Flow 3.0 FiO2 30.0 Sodium Potassium Chloride Carbon Dioxide Anion Gap BUN Creatinine Est GFR ( Amer) Est GFR (Non-Af Amer) Random Glucose Calcium Phosphorus Magnesium Total Bilirubin AST ALT Alkaline Phosphatase Total Protein Albumin Globulin Albumin/Globulin Ratio Fluid Albumin 0.7 Pleural Fluid CEA <0.5 0.5 03/29/18 03/29/18 06:57 06:57 WBC 11.7 H RBC 4.08 L Hgb 11.7 L Hct 35.2 MCV 86.1 MCH 28.6 MCHC 33.2 RDW 18.1 H Plt Count 301 MPV 7.8 Neut % (Auto) 86.8 H Lymph % (Auto) 8.3 L [place] % (Auto) 4.3 Eos % (Auto) 0.0 Baso % (Auto) 0.6 Neut # (Auto) 10.2 H Lymph # (Auto) 1.0 [place] # (Auto) 0.5 Eos # (Auto) 0.0 Baso # (Auto) 0.1 Neutrophils % (Manual) 79 H Band Neutrophils % 3 H Lymphocytes % (Manual) 9 L Monocytes % (Manual) 9 Platelet Estimate Normal Large Platelets Present Giant Platelets Present Anisocytosis (manual) Slight Spherocytes Slight Ovalocytes Slight Puncture Site pCO2 pO2 HCO3 ABG pH ABG Total CO2 ABG O2 Saturation ABG Base Excess ABG Hemoglobin ABG Carboxyhemoglobin POC ABG HHb (Measured) ABG Methemoglobin [place] Test A-a O2 Difference Respiratory Index Hgb O2 Saturation Liter Flow FiO2 Sodium 133 Potassium 4.8 Chloride 98 Carbon Dioxide 26 Anion Gap 15 BUN 57 H Creatinine 1.3 Est GFR ( Amer) > 60 Est GFR (Non-Af Amer) 55 Random Glucose 147 H Calcium 8.5 L Phosphorus 4.6 H Magnesium 2.8 H Total Bilirubin 0.4 AST 32 ALT 42 Alkaline Phosphatase 114 Total Protein 6.8 Albumin 3.2 L Globulin 3.6 Albumin/Globulin Ratio 0.9 L Fluid Albumin Pleural Fluid CEA Fingerstick Blood Sugar Results: 174 Review of Systems - Review of Systems All systems: reviewed and no additional remarkable complaints except (as per subjective) Critical Care Progress Note - Nutrition Nutrition: Nutrition Category Date Time Status Heart Healthy Diet [DIET] Diets 03/27/18 Breakfast Active Assessment/Plan - Assessment and Plan (Free Text) Assessment: 67 yo M with PMH of 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 P/p right-sided thoracentesis, 1.5L removed, and L sided thoracentesis, 860ml removed. Repeat CT scan showed re-accumulated bilateral pleural effusions. S/p bilateral pigtail chest tubes. 340cc and 150cc drainage from L and R chest tubes, respectively, in last 24 hrs. Plan: Neuro: -pt is awake and alert, no acute issues -maintain normothermia Pulm: -Tolerating 3L NC O2 well, satting well -Continue q6 nebs -Repeat CT scan showed reaccumulated bilateral pleural effusions and b/l upper infiltrate -s/p bilateral pigtail chest tube insertion by IR, drainage overnight: R: 150ml and L: 340ml -Consulted cardiothoracic for recs; no intervention at this time -Follow up IR consult for recs -Septic work up neg for mycoplasma and Leigonella -maintain SaO2 > 92% -Encourage Incentive spirometer Cardio: -Hemodynamically stable -Given strep bacteremia and aortic valve thickening on Echo, Cardiology consulted for possible АЛЕКСАНДР to r/o any aortic vegetations; continue Rocephin -maintaining MAP > 65 -Echo 03/21: EF 41%, grade-1 abnormal relaxation patter on transmitral doppler, severely thickened aortic valve, cannot exclude aortic valve vegitation -Increasing trop from 03/20-03/21, concerning for NSTEMI; not currently on AC due to concern for bleeding GI: -Encouraging PO intake, city library director referral placed -HHD -daily protonix for GI ppx -GI signed off, recs radiation course as planned with Rad-onc Renal: -monitor I and O -replete electrolytes as needed Heme: -Monitor H/H, stable today at 11.7/35.2 -No AC at this time due to concern for bleeding and given rectal bleeding on presentation; SCDs for DVT ppx -Heme-onc following; continue radiation therapy, can start Xeloda as outpatient ID: -WBCs improved to 11.7, remains afebrile -blood cultures positive x2 for Strep Viridans bacteremia, Repeat blood cx x2 neg x3 days -ID following, appreciate all recs; Cont Rocephin which is sensitive to Strep Viridans bacteremia, needs АЛЕКСАНДР Endo: -maintain euglycemia Dispo: Remains in ICU for monitoring drainage of bilateral pigtail catheters, pending АЛЕКСАНДР to r/o vegetations FEN: HHD, Iron supplementation Access: Peripheral IVs Consults: ID, Heme-onc, GI (signed off), IR, CT Surgery (signed off), Cardio Ppx: Protonix for GI, SCDs for DVT (VTE contraindicated due to bleeding/bleed risk) Code Status: Full Reviewed and discussed with attending, Dr. Sharpe. <Tiffanie Sharpe - Last Filed: 03/31/18 11:49> CCU Objective - Vital Signs / Intake & Output Vital Signs (Last 4 hours): Vital Signs Temp Pulse Resp BP Pulse Ox 03/31/18 10:00 93 H 16 107/40 L 99 03/31/18 09:00 92 H 15 110/40 L 100 03/31/18 08:07 92 H 03/31/18 08:00 97.4 F L 92 H 19 105/30 L 100 Intake and Output (Last 8hrs): Intake & Output 03/30/18 03/31/18 03/31/18 22:59 06:59 14:59 Intake Total 470 120 200 Output Total 225 505 0 Balance 245 -385 200 Weight 108 lb 11.2 oz Intake: Intake, IV Amount 100 Right Forearm 100 Oral 370 120 200 Output: Chest Tube Drainage 305 Left Upper Mid-Axillary 165 Chest Right Upper Mid-Axillary 140 Chest Urine 225 200 0 Urine, Voided 225 200 0 - Medications Active Medications: Active Medications Generic Name Dose Route Start Last Admin Trade Name Freq PRN Reason Stop Dose Admin Acetaminophen 650 mg 03/19/18 12:00 03/30/18 10:26 Tylenol 325mg Tab PO 650 mg Q4 PRN Administration Pain, Mild (1-3) Albuterol/Ipratropium 3 ml 03/24/18 14:00 03/31/18 08:10 Duoneb 3 Mg/0.5 Mg (3 Ml) Ud INH 3 ml RQ6 ANIYAH Administration Ferrous Sulfate 325 mg 03/19/18 10:00 03/31/18 09:21 Feosol PO 325 mg TID ANIYAH Administration Furosemide 20 mg 04/01/18 10:00 Lasix PO DAILY ANIYAH Ceftriaxone Sodium 2 gm/ 100 mls @ 100 mls/hr 03/27/18 09:30 03/31/18 09:22 Sodium Chloride IVPB 100 mls/hr Q12H ANIYAH Administration Protocol Lidocaine 1 ea 03/26/18 15:00 03/30/18 01:23 Lidoderm TD 1 ea Q24H PRN Administration Pain - see dose instructions Ondansetron HCl 4 mg 03/30/18 19:04 03/30/18 21:27 Zofran Inj IVP 4 mg Q6H PRN Administration Nausea/Vomiting Pantoprazole Sodium 40 mg 03/26/18 10:00 03/31/18 09:21 Protonix Ec Tab PO 40 mg DAILY ANIYAH Administration - Patient Studies Lab Studies: Microbiology Studies 03/25/18 12:12 Blood Culture - Final Blood NO GROWTH AFTER 5 DAYS Gram Stain - Final TEST NOT PERFORMED 03/25/18 12:12 Blood Culture - Final Blood NO GROWTH AFTER 5 DAYS Gram Stain - Final TEST NOT PERFORMED Lab Studies 03/31/18 03/31/18 Range/Units 06:36 06:33 WBC 10.7 (4.8-10.8) K/uL RBC 3.99 L (4.40-5.90) Mil/uL Hgb 11.4 L (12.0-18.0) g/dL Hct 34.7 L (35.0-51.0) % MCV 87.0 (80.0-94.0) fL MCH 28.7 (27.0-31.0) pg MCHC 33.0 (33.0-37.0) g/dL RDW 17.9 H (11.5-14.5) % Plt Count 224 (130-400) K/uL MPV 9.5 (7.2-11.7) fL Neut % (Auto) 88.9 H (50.0-75.0) % Lymph % (Auto) 6.6 L (20.0-40.0) % [place] % (Auto) 4.1 (0.0-10.0) % Eos % (Auto) 0.0 (0.0-4.0) % Baso % (Auto) 0.4 (0.0-2.0) % Neut # (Auto) 9.5 H (1.8-7.0) K/uL Lymph # (Auto) 0.7 L (1.0-4.3) K/uL [place] # (Auto) 0.4 (0.0-0.8) K/uL Eos # (Auto) 0.0 (0.0-0.7) K/uL Baso # (Auto) 0.0 (0.0-0.2) K/uL Neutrophils % (Manual) 88 H (50-75) % Band Neutrophils % 1 (0-2) % Lymphocytes % (Manual) 7 L (20-40) % Monocytes % (Manual) 4 (0-10) % Platelet Estimate Normal (NORMAL) Anisocytosis (manual) Slight Sodium 133 (132-148) mmol/L Potassium 4.4 (3.6-5.2) mmol/L Chloride 94 L (98-107) mmol/L Carbon Dioxide 29 (22-30) mmol/L Anion Gap 14 (10-20) BUN 65 H (9-20) mg/dL Creatinine 1.3 (0.8-1.5) mg/dL Est GFR ( Amer) > 60 Est GFR (Non-Af Amer) 55 Random Glucose 147 H (75-110) mg/dL Calcium 8.5 L (8.6-10.4) mg/dl Phosphorus 4.6 H (2.5-4.5) mg/dL Magnesium 2.9 H (1.6-2.3) mg/dL Total Bilirubin 0.4 (0.2-1.3) mg/dL AST 22 (17-59) U/L ALT 27 (21-72) U/L Alkaline Phosphatase 99 (38-126) U/L Total Protein 6.8 (6.3-8.3) g/dL Albumin 3.1 L (3.5-5.0) g/dL Globulin 3.7 (2.2-3.9) gm/dL Albumin/Globulin Ratio 0.8 L (1.0-2.1) Laboratory Results - last 24 hr 03/31/18 03/31/18 06:33 06:36 WBC 10.7 RBC 3.99 L Hgb 11.4 L Hct 34.7 L MCV 87.0 MCH 28.7 MCHC 33.0 RDW 17.9 H Plt Count 224 MPV 9.5 Neut % (Auto) 88.9 H Lymph % (Auto) 6.6 L [place] % (Auto) 4.1 Eos % (Auto) 0.0 Baso % (Auto) 0.4 Neut # (Auto) 9.5 H Lymph # (Auto) 0.7 L [place] # (Auto) 0.4 Eos # (Auto) 0.0 Baso # (Auto) 0.0 Neutrophils % (Manual) 88 H Band Neutrophils % 1 Lymphocytes % (Manual) 7 L Monocytes % (Manual) 4 Platelet Estimate Normal Anisocytosis (manual) Slight Sodium 133 Potassium 4.4 Chloride 94 L Carbon Dioxide 29 Anion Gap 14 BUN 65 H Creatinine 1.3 Est GFR ( Amer) > 60 Est GFR (Non-Af Amer) 55 Random Glucose 147 H Calcium 8.5 L Phosphorus 4.6 H Magnesium 2.9 H Total Bilirubin 0.4 AST 22 ALT 27 Alkaline Phosphatase 99 Total Protein 6.8 Albumin 3.1 L Globulin 3.7 Albumin/Globulin Ratio 0.8 L EKG/Cardiology Studies: Cardiology / EKG Studies 03/30/18 14:05 EKG [ELECTROCARDIOGRAM] Routine Comment: Mode Of Transportation: Reason For Exam: assess QTc Precautions: Standard Critical Care Progress Note - Nutrition Nutrition: Nutrition Category Date Time Status Heart Healthy Diet [DIET] Diets 03/27/18 Breakfast Active Attending/Attestation - Attestation I have personally seen and examined this patient.: Yes I have fully participated in the care of the patient.: Yes I have reviewed all pertinent clinical information: Yes
[2018-03-29] MEDS: cefTRIAXone 2 GM in Sodium Chloride 0.9% 100 ML IVPB SCH ×2 (10:23→21:30)
[2018-03-29] MEDS: Pantoprazole 40 mg EC Tab PO SCH (10:23)
--- NOTE | 2018-03-29 23:42 | CP.PCM.PN ---
Subjective - Date & Time of Evaluation Date of Evaluation: 03/29/18 Time of Evaluation: 20:45 - Subjective Subjective: Patient has no SOB, afebrile. Bilateral chest tubes still draining, but much less. Objective - Vital Signs/Intake and Output Vital Signs (last 24 hours): Temp Pulse Resp BP Pulse Ox 97 F L 88 13 115/32 L 97 03/29/18 20:00 03/29/18 23:00 03/29/18 23:00 03/29/18 23:00 03/29/18 23:00 Intake and Output: 03/29/18 03/30/18 18:59 06:59 Intake Total 600 220 Output Total 1780 200 Balance -1180 20 - Medications Medications: Current Medications Acetaminophen (Tylenol 325mg Tab) 650 mg PO Q4 PRN PRN Reason: Pain, Mild (1-3) Last Admin: 03/29/18 08:56 Dose: 650 mg Albuterol/Ipratropium (Duoneb 3 Mg/0.5 Mg (3 Ml) Ud) 3 ml INH RQ6 [facility] [place] Last Admin: 03/29/18 19:57 Dose: 3 ml Ferrous Sulfate (Feosol) 325 mg PO TID [facility] [place] Last Admin: 03/29/18 17:37 Dose: 325 mg Furosemide (Lasix) 20 mg PO DAILY [facility] [place] Last Admin: 03/28/18 09:17 Dose: 20 mg Ceftriaxone Sodium 2 gm/ (Sodium Chloride) 100 mls @ 100 mls/hr IVPB Q12H ANIYAH PRN Reason: Protocol Last Admin: 03/29/18 21:30 Dose: 100 mls/hr Lidocaine (Lidoderm) 1 ea TD Q24H PRN PRN Reason: Pain - see dose instructions Last Admin: 03/28/18 21:53 Dose: 1 ea Morphine Sulfate (Morphine) 2 mg IVP Q4 PRN PRN Reason: Pain, severe (8-10) Last Admin: 03/29/18 18:17 Dose: 2 mg Pantoprazole Sodium (Protonix Ec Tab) 40 mg PO DAILY [facility] [place] Last Admin: 03/29/18 10:23 Dose: 40 mg - Labs Labs: 03/29/18 06:57 03/29/18 06:57 PT 13.6 SECONDS (9.7-12.2) H 03/20/18 07:25 INR 1.2 03/20/18 07:25 APTT 32 SECONDS (21-34) D 03/20/18 07:25 - Constitutional Appears: No Acute Distress, Chronically Ill - Head Exam Head Exam: NORMOCEPHALIC - Eye Exam Eye Exam: Normal appearance - ENT Exam ENT Exam: Normal Exam - Neck Exam Neck Exam: Normal Inspection - Respiratory Exam Additional comments: Rhonchi heard bilaterally. - Cardiovascular Exam Cardiovascular Exam: REGULAR RHYTHM - GI/Abdominal Exam GI & Abdominal Exam: Soft, Normal Bowel Sounds - Rectal Exam Rectal Exam: Deferred - Extremities Exam Extremities Exam: Normal Inspection - Back Exam Back Exam: NORMAL INSPECTION - Neurological Exam Neurological Exam: Alert, Awake, Oriented x3 - Psychiatric Exam Psychiatric exam: Anxious - Skin Skin Exam: Dry, Intact Assessment and Plan (1) Lower GI bleeding Assessment & Plan: Bleeding had stopped. Status: Acute (2) Anemia Status: Acute (3) Pneumonia Assessment & Plan: On IV Rocephin Status: Acute (4) Hyperkalemia Status: Resolved (5) Hyponatremia Status: Resolved (6) Acute diastolic (congestive) heart failure Status: Resolved (7) Acute bacterial endocarditis Assessment & Plan: On IV Rocephin. Status: Acute (8) Acute non-ST elevation myocardial infarction (NSTEMI) Assessment & Plan: Stable. Status: Acute (9) Bilateral pleural effusion Assessment & Plan: Bilateral chest tube still draining. Status: Acute
[2018-03-30] MEDS: Lidocaine 5% Patch TD PRN (01:23)
[2018-03-30] MEDS: Albuterol-Ipratrop 3 mg / 0.5 (3 ml) UD INH SCH ×4 (01:38→19:44)
[2018-03-30 06:41] LABS: HEMOGLOBIN 12.1 g/dL (12.0-18.0); MEAN CELL VOLUME 87.4 fL (80.0-94.0); MEAN CORPUSCULAR HEMOGLOBIN 29.1 pg (27.0-31.0); MEAN CORPUSCULAR HGB CONC 33.3 g/dL (33.0-37.0); MEAN PLATELET VOLUME 9.7 fL (7.2-11.7); RBC 4.16 Mil/uL (4.40-5.90); RED CELL DISTRIBUTION WIDTH 18.1 % (11.5-14.5)
[2018-03-30 06:58] LABS: ALB/GLOB RATIO 0.9 (1.0-2.1); ALBUMIN 3.3 g/dL (3.5-5.0); ALT/SGPT 33 U/L (21-72); AST/SGOT 25 U/L (17-59); BLOOD UREA NITROGEN 59 mg/dL (9-20); CALCIUM 8.7 mg/dl (8.6-10.4); GFR NON-AFRICAN AMERICAN 55
[2018-03-30] MEDS: cefTRIAXone 2 GM in Sodium Chloride 0.9% 100 ML IVPB SCH ×2 (08:44→21:21)
[2018-03-30] MEDS: Pantoprazole 40 mg EC Tab PO SCH (09:01)
--- NOTE | 2018-03-30 09:30 | RAD ---
Date of service: 03/30/2018 PROCEDURE: CHEST RADIOGRAPH, 1 VIEW HISTORY: Pleural effusion COMPARISON: Comparison made with prior study 03/28/2018 FINDINGS: Re- demonstrated are in situ bilateral pigtail chest tube catheter is the pigtail components of which are located in the right and left CP angle regions. LUNGS: Hyperinflation. Coarsened interstitial opacities possibly due to underlying emphysema. Rule out concomitant mild pulmonary venous congestion. PLEURA: No pneumothorax or. . Pleural fluid seen. CARDIOVASCULAR: Normal. OSSEOUS STRUCTURES: No significant abnormalities. VISUALIZED UPPER ABDOMEN: Normal. OTHER FINDINGS: None. IMPRESSION: Bilateral in situ chest tubes. No significant effusion identified at this time Hyperinflation. Coarsened interstitial opacities possibly due to underlying emphysema. Rule out concomitant mild pulmonary venous congestion
[2018-03-30] MEDS ORDERED: Sucralfate 1 gm/10 ml Oral Susp UD PO ONE (10:45)
--- NOTE | 2018-03-30 13:41 | CP.CCUPN ---
<Min Kelsey - Last Filed: 03/30/18 15:39> CCU Subjective - Physician Review Subjective (Free Text): 03/30/18 15:39 Patient seen and examined at bedside in the ICU. No acute events reported overnight. Resting in bed today, only complaints are discomfort at site of pigtail catheters, nausea, and fatigue. 2x episodes of retching without actual emesis output today. Both catheters observed to have serosanginous drainage, no constanza blood or pus appreciated. Patient breathing and satting well on 3L NC. CCU Objective - Vital Signs / Intake & Output Vital Signs (Last 4 hours): Vital Signs Temp Pulse Resp BP Pulse Ox 03/30/18 13:00 85 12 100/32 L 100 03/30/18 12:00 97.5 F L 88 15 94/26 L 98 03/30/18 11:01 93 H 20 110/41 L 03/30/18 11:00 98 H 19 03/30/18 10:26 98 F 03/30/18 10:00 86 10 L 103/35 L 98 Intake and Output (Last 8hrs): Intake & Output 03/29/18 03/30/18 03/30/18 22:59 06:59 14:59 Intake Total 420 300 350 Output Total 1140 845 650 Balance -720 -545 -300 Weight 58.06 kg Intake: Intake, IV Amount 100 0 0 Right Forearm 100 0 0 Oral 320 300 350 Output: Chest Tube Drainage 740 420 250 Left Upper Mid-Axillary 310 250 250 Chest Right Upper Mid-Axillary 430 170 Chest Urine 400 425 400 Urine, Voided 400 425 400 Other: # Voids Urine, Voided 0 1 1 # Bowel Movements 0 0 0 - Physical Exam Head: Positive for: Atraumatic, Normocephalic Pupils: Positive for: PERRL Extroacular Muscles: Positive for: Other (left eyeball with upward gaze deviation, blind in left eye, but R eye visual simpson grossly intact) Conjunctiva: Positive for: Normal. Negative for: Injected, Icteric Mouth: Positive for: Moist Mucous Membranes. Negative for: Dry, Drooling Pharnyx: Positive for: Normal Nose (External): Positive for: Atraumatic, Other (wearing NC 3L O2). Negative for: Abrasion, Contusion, Laceration Nose (Internal): Positive for: No Active Bleeding. Negative for: Epistaxis Neck: Positive for: Normal Range of Motion, Trachea Midline. Negative for: Lymphadenopathy Respiratory/Chest: Positive for: Good Air Exchange, Decreased Breath Sounds ( mildly decreased breath sounds at bilateral bases), Other (pigtail chest tubes bilaterally, draining serosanguinous fluid). Negative for: Respiratory Distress , Wheezes, Rhonchi, Tachypneic, Tender to Palpation Cardiovascular: Positive for: Regular Rate and Rhythm, Normal S1, S2. Negative for: Murmurs, Irregular Rhythm, Tachycardic, Bradycardic Abdomen: Positive for: Tenderness (mild tenderness epigastically after acute retching episode), Normal Bowel Sounds. Negative for: Distention, Rebound, Guarding, Mass/Organomegaly Upper Extremity: Positive for: Normal Inspection, NORMAL PULSES (+2 radials). Negative for: Cyanosis, Edema, Tenderness, Swelling, Erythema Lower Extremity: Positive for: Normal Inspection, NORMAL PULSES (+2 dorsalis pedis bilaterally). Negative for: Edema, CALF TENDERNESS, Cyanosis, Tenderness , Swelling, Erythema Neurological: Positive for: GCS=15, Speech Normal, Motor Func Grossly Intact, Other (following commands appropriately) Skin: Positive for: Warm, Dry, Normal Color. Negative for: Rashes Psychiatric: Positive for: Alert, Oriented x 3, Normal Affect, Normal Mood - Medications Active Medications: Active Medications Generic Name Dose Route Start Last Admin Trade Name Freq PRN Reason Stop Dose Admin Acetaminophen 650 mg 03/19/18 12:00 03/30/18 10:26 Tylenol 325mg Tab PO 650 mg Q4 PRN Administration Pain, Mild (1-3) Albuterol/Ipratropium 3 ml 03/24/18 14:00 03/30/18 13:06 Duoneb 3 Mg/0.5 Mg (3 Ml) Ud INH 3 ml RQ6 ANIYAH Administration Ferrous Sulfate 325 mg 03/19/18 10:00 03/30/18 13:37 Feosol PO 325 mg TID ANIYAH Administration Furosemide 20 mg 03/27/18 10:00 03/28/18 09:17 Lasix PO 20 mg DAILY ANIYAH Administration Ceftriaxone Sodium 2 gm/ 100 mls @ 100 mls/hr 03/27/18 09:30 03/30/18 08:44 Sodium Chloride IVPB 100 mls/hr Q12H ANIYAH Administration Protocol Lidocaine 1 ea 03/26/18 15:00 03/30/18 01:23 Lidoderm TD 1 ea Q24H PRN Administration Pain - see dose instructions Morphine Sulfate 2 mg 03/26/18 14:58 03/30/18 06:33 Morphine IVP 2 mg Q4 PRN Administration Pain, severe (8-10) Pantoprazole Sodium 40 mg 03/26/18 10:00 03/30/18 09:01 Protonix Ec Tab PO 40 mg DAILY ANIYAH Administration - Patient Studies Lab Studies: Microbiology Studies 03/25/18 12:12 Blood Culture - Final Blood NO GROWTH AFTER 5 DAYS Gram Stain - Final TEST NOT PERFORMED 03/25/18 12:12 Blood Culture - Final Blood NO GROWTH AFTER 5 DAYS Gram Stain - Final TEST NOT PERFORMED Lab Studies 03/30/18 03/30/18 Range/Units 06:32 06:32 WBC 11.0 H (4.8-10.8) K/uL RBC 4.16 L (4.40-5.90) Mil/uL Hgb 12.1 (12.0-18.0) g/dL Hct 36.4 (35.0-51.0) % MCV 87.4 (80.0-94.0) fL MCH 29.1 (27.0-31.0) pg MCHC 33.3 (33.0-37.0) g/dL RDW 18.1 H (11.5-14.5) % Plt Count 283 (130-400) K/uL MPV 9.7 (7.2-11.7) fL Sodium 133 (132-148) mmol/L Potassium 4.1 (3.6-5.2) mmol/L Chloride 94 L (98-107) mmol/L Carbon Dioxide 27 (22-30) mmol/L Anion Gap 16 (10-20) BUN 59 H (9-20) mg/dL Creatinine 1.3 (0.8-1.5) mg/dL Est GFR ( Amer) > 60 Est GFR (Non-Af Amer) 55 Random Glucose 165 H (75-110) mg/dL Calcium 8.7 (8.6-10.4) mg/dl Phosphorus 4.3 (2.5-4.5) mg/dL Magnesium 3.0 H (1.6-2.3) mg/dL Total Bilirubin 0.4 (0.2-1.3) mg/dL AST 25 (17-59) U/L ALT 33 (21-72) U/L Alkaline Phosphatase 118 (38-126) U/L Total Protein 7.1 (6.3-8.3) g/dL Albumin 3.3 L (3.5-5.0) g/dL Globulin 3.9 (2.2-3.9) gm/dL Albumin/Globulin Ratio 0.9 L (1.0-2.1) Laboratory Results - last 24 hr 03/30/18 03/30/18 06:32 06:32 WBC 11.0 H RBC 4.16 L Hgb 12.1 Hct 36.4 MCV 87.4 MCH 29.1 MCHC 33.3 RDW 18.1 H Plt Count 283 MPV 9.7 Sodium 133 Potassium 4.1 Chloride 94 L Carbon Dioxide 27 Anion Gap 16 BUN 59 H Creatinine 1.3 Est GFR ( Amer) > 60 Est GFR (Non-Af Amer) 55 Random Glucose 165 H Calcium 8.7 Phosphorus 4.3 Magnesium 3.0 H Total Bilirubin 0.4 AST 25 ALT 33 Alkaline Phosphatase 118 Total Protein 7.1 Albumin 3.3 L Globulin 3.9 Albumin/Globulin Ratio 0.9 L Fingerstick Blood Sugar Results: 174 Review of Systems - Review of Systems All systems: reviewed and no additional remarkable complaints except (as per subjective) Critical Care Progress Note - Nutrition Nutrition: Nutrition Category Date Time Status Heart Healthy Diet [DIET] Diets 03/27/18 Breakfast Active Assessment/Plan - Assessment and Plan (Free Text) Assessment: 67 yo M with PMH of 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 P/p right-sided thoracentesis, 1.5L removed, and L sided thoracentesis, 860ml removed. Repeat CT scan showed re-accumulated bilateral pleural effusions. S/p bilateral pigtail chest tubes. 900cc and 750cc drainage from L and R chest tubes, respectively, in last 24 hrs. Plan: Neuro: -pt is awake and alert, no acute issues -maintain normothermia Pulm: -Tolerating 3L NC O2 well, satting well -Continue q6 nebs -Repeat CT scan showed reaccumulated bilateral pleural effusions and b/l upper infiltrate -s/p bilateral pigtail chest tube insertion by IR, continuing to drain, drainage increased in last 24 hours, continue to monitor -Consulted cardiothoracic for recs; no intervention at this time -Follow up IR consult for recs -Septic work up neg for mycoplasma and Leigonella -maintain SaO2 > 92% -Encourage Incentive spirometer Cardio: -Hemodynamically stable -Given strep bacteremia and aortic valve thickening on Echo, Cardiology consulted for possible АЛЕКСАНДР to r/o any aortic vegetations; continue Rocephin -maintaining MAP > 65 -Echo 03/21: EF 41%, grade-1 abnormal relaxation patter on transmitral doppler, severely thickened aortic valve, cannot exclude aortic valve vegitation -Increasing trop from 03/20-03/21, concerning for NSTEMI; not currently on AC due to concern for bleeding GI: -Encouraging PO intake, global climate change researcher referral placed -HHD -daily protonix for GI ppx -GI signed off, recs radiation course as planned with Rad-onc Renal: -monitor I and O -replete electrolytes as needed Heme: -Monitor H/H, stable today at 12.1/36.4 -No AC at this time due to concern for bleeding and given rectal bleeding on presentation; SCDs for DVT ppx -Heme-onc following; continue radiation therapy, can start Xeloda as outpatient ID: -WBCs improved to 11.0, remains afebrile -blood cultures positive x2 for Strep Viridans bacteremia, Repeat blood cx x2 neg x5 days -ID following, appreciate all recs; Cont Rocephin which is sensitive to Strep Viridans bacteremia, needs АЛЕКСАНДР Endo: -maintain euglycemia Dispo: Remains in ICU for monitoring drainage of bilateral pigtail catheters, pending АЛЕКСАНДР to r/o vegetations FEN: HHD, Iron supplementation Access: Peripheral IVs Consults: ID, Heme-onc, GI (signed off), IR, CT Surgery (signed off), Cardio Ppx: Protonix for GI, SCDs for DVT (VTE contraindicated due to bleeding/bleed risk) Code Status: Full Reviewed and discussed with attending, Dr. Sharpe. <Tiffanie Sharpe - Last Filed: 03/31/18 11:49> CCU Objective - Vital Signs / Intake & Output Vital Signs (Last 4 hours): Vital Signs Temp Pulse Resp BP Pulse Ox 03/31/18 10:00 93 H 16 107/40 L 99 03/31/18 09:00 92 H 15 110/40 L 100 03/31/18 08:07 92 H 03/31/18 08:00 97.4 F L 92 H 19 105/30 L 100 Intake and Output (Last 8hrs): Intake & Output 03/30/18 03/31/18 03/31/18 22:59 06:59 14:59 Intake Total 470 120 200 Output Total 225 505 0 Balance 245 -385 200 Weight 108 lb 11.2 oz Intake: Intake, IV Amount 100 Right Forearm 100 Oral 370 120 200 Output: Chest Tube Drainage 305 Left Upper Mid-Axillary 165 Chest Right Upper Mid-Axillary 140 Chest Urine 225 200 0 Urine, Voided 225 200 0 - Medications Active Medications: Active Medications Generic Name Dose Route Start Last Admin Trade Name Freq PRN Reason Stop Dose Admin Acetaminophen 650 mg 03/19/18 12:00 03/30/18 10:26 Tylenol 325mg Tab PO 650 mg Q4 PRN Administration Pain, Mild (1-3) Albuterol/Ipratropium 3 ml 03/24/18 14:00 03/31/18 08:10 Duoneb 3 Mg/0.5 Mg (3 Ml) Ud INH 3 ml RQ6 ANIYAH Administration Ferrous Sulfate 325 mg 03/19/18 10:00 03/31/18 09:21 Feosol PO 325 mg TID ANIYAH Administration Furosemide 20 mg 04/01/18 10:00 Lasix PO DAILY ANIYAH Ceftriaxone Sodium 2 gm/ 100 mls @ 100 mls/hr 03/27/18 09:30 03/31/18 09:22 Sodium Chloride IVPB 100 mls/hr Q12H ANIYAH Administration Protocol Lidocaine 1 ea 03/26/18 15:00 03/30/18 01:23 Lidoderm TD 1 ea Q24H PRN Administration Pain - see dose instructions Ondansetron HCl 4 mg 03/30/18 19:04 03/30/18 21:27 Zofran Inj IVP 4 mg Q6H PRN Administration Nausea/Vomiting Pantoprazole Sodium 40 mg 03/26/18 10:00 03/31/18 09:21 Protonix Ec Tab PO 40 mg DAILY ANIYAH Administration - Patient Studies Lab Studies: Microbiology Studies 03/25/18 12:12 Blood Culture - Final Blood NO GROWTH AFTER 5 DAYS Gram Stain - Final TEST NOT PERFORMED 03/25/18 12:12 Blood Culture - Final Blood NO GROWTH AFTER 5 DAYS Gram Stain - Final TEST NOT PERFORMED Lab Studies 03/31/18 03/31/18 Range/Units 06:36 06:33 WBC 10.7 (4.8-10.8) K/uL RBC 3.99 L (4.40-5.90) Mil/uL Hgb 11.4 L (12.0-18.0) g/dL Hct 34.7 L (35.0-51.0) % MCV 87.0 (80.0-94.0) fL MCH 28.7 (27.0-31.0) pg MCHC 33.0 (33.0-37.0) g/dL RDW 17.9 H (11.5-14.5) % Plt Count 224 (130-400) K/uL MPV 9.5 (7.2-11.7) fL Neut % (Auto) 88.9 H (50.0-75.0) % Lymph % (Auto) 6.6 L (20.0-40.0) % Banner % (Auto) 4.1 (0.0-10.0) % Eos % (Auto) 0.0 (0.0-4.0) % Baso % (Auto) 0.4 (0.0-2.0) % Neut # (Auto) 9.5 H (1.8-7.0) K/uL Lymph # (Auto) 0.7 L (1.0-4.3) K/uL Banner # (Auto) 0.4 (0.0-0.8) K/uL Eos # (Auto) 0.0 (0.0-0.7) K/uL Baso # (Auto) 0.0 (0.0-0.2) K/uL Neutrophils % (Manual) 88 H (50-75) % Band Neutrophils % 1 (0-2) % Lymphocytes % (Manual) 7 L (20-40) % Monocytes % (Manual) 4 (0-10) % Platelet Estimate Normal (NORMAL) Anisocytosis (manual) Slight Sodium 133 (132-148) mmol/L Potassium 4.4 (3.6-5.2) mmol/L Chloride 94 L (98-107) mmol/L Carbon Dioxide 29 (22-30) mmol/L Anion Gap 14 (10-20) BUN 65 H (9-20) mg/dL Creatinine 1.3 (0.8-1.5) mg/dL Est GFR ( Amer) > 60 Est GFR (Non-Af Amer) 55 Random Glucose 147 H (75-110) mg/dL Calcium 8.5 L (8.6-10.4) mg/dl Phosphorus 4.6 H (2.5-4.5) mg/dL Magnesium 2.9 H (1.6-2.3) mg/dL Total Bilirubin 0.4 (0.2-1.3) mg/dL AST 22 (17-59) U/L ALT 27 (21-72) U/L Alkaline Phosphatase 99 (38-126) U/L Total Protein 6.8 (6.3-8.3) g/dL Albumin 3.1 L (3.5-5.0) g/dL Globulin 3.7 (2.2-3.9) gm/dL Albumin/Globulin Ratio 0.8 L (1.0-2.1) Laboratory Results - last 24 hr 03/31/18 03/31/18 06:33 06:36 WBC 10.7 RBC 3.99 L Hgb 11.4 L Hct 34.7 L MCV 87.0 MCH 28.7 MCHC 33.0 RDW 17.9 H Plt Count 224 MPV 9.5 Neut % (Auto) 88.9 H Lymph % (Auto) 6.6 L Banner % (Auto) 4.1 Eos % (Auto) 0.0 Baso % (Auto) 0.4 Neut # (Auto) 9.5 H Lymph # (Auto) 0.7 L Banner # (Auto) 0.4 Eos # (Auto) 0.0 Baso # (Auto) 0.0 Neutrophils % (Manual) 88 H Band Neutrophils % 1 Lymphocytes % (Manual) 7 L Monocytes % (Manual) 4 Platelet Estimate Normal Anisocytosis (manual) Slight Sodium 133 Potassium 4.4 Chloride 94 L Carbon Dioxide 29 Anion Gap 14 BUN 65 H Creatinine 1.3 Est GFR ( Amer) > 60 Est GFR (Non-Af Amer) 55 Random Glucose 147 H Calcium 8.5 L Phosphorus 4.6 H Magnesium 2.9 H Total Bilirubin 0.4 AST 22 ALT 27 Alkaline Phosphatase 99 Total Protein 6.8 Albumin 3.1 L Globulin 3.7 Albumin/Globulin Ratio 0.8 L EKG/Cardiology Studies: Cardiology / EKG Studies 03/30/18 14:05 EKG [ELECTROCARDIOGRAM] Routine Comment: Mode Of Transportation: Reason For Exam: assess QTc Precautions: Standard Critical Care Progress Note - Nutrition Nutrition: Nutrition Category Date Time Status Heart Healthy Diet [DIET] Diets 03/27/18 Breakfast Active Attending/Attestation - Attestation I have personally seen and examined this patient.: Yes I have fully participated in the care of the patient.: Yes I have reviewed all pertinent clinical information: Yes
--- NOTE | 2018-03-30 15:41 | CP.PCM.PN ---
Subjective - Date & Time of Evaluation Date of Evaluation: 03/30/18 Time of Evaluation: 08:00 - Subjective Subjective: resting comfortably in ICU has bilat chest tubes in place denies fever or chest pain repeat blood cultures are negative Objective - Vital Signs/Intake and Output Vital Signs (last 24 hours): Temp Pulse Resp BP Pulse Ox 97.5 F L 85 12 100/32 L 100 03/30/18 12:00 03/30/18 13:00 03/30/18 13:00 03/30/18 13:00 03/30/18 13:00 Intake and Output: 03/30/18 03/30/18 06:59 18:59 Intake Total 520 350 Output Total 1045 650 Balance -525 -300 - Medications Medications: Current Medications Acetaminophen (Tylenol 325mg Tab) 650 mg PO Q4 PRN PRN Reason: Pain, Mild (1-3) Last Admin: 03/30/18 10:26 Dose: 650 mg Albuterol/Ipratropium (Duoneb 3 Mg/0.5 Mg (3 Ml) Ud) 3 ml INH RQ6 [facility] Last Admin: 03/30/18 13:06 Dose: 3 ml Ferrous Sulfate (Feosol) 325 mg PO TID [facility] Last Admin: 03/30/18 13:37 Dose: 325 mg Furosemide (Lasix) 20 mg PO DAILY [facility] Last Admin: 03/28/18 09:17 Dose: 20 mg Ceftriaxone Sodium 2 gm/ (Sodium Chloride) 100 mls @ 100 mls/hr IVPB Q12H ANIYAH PRN Reason: Protocol Last Admin: 03/30/18 08:44 Dose: 100 mls/hr Lidocaine (Lidoderm) 1 ea TD Q24H PRN PRN Reason: Pain - see dose instructions Last Admin: 03/30/18 01:23 Dose: 1 ea Morphine Sulfate (Morphine) 2 mg IVP Q4 PRN PRN Reason: Pain, severe (8-10) Last Admin: 03/30/18 06:33 Dose: 2 mg Pantoprazole Sodium (Protonix Ec Tab) 40 mg PO DAILY [facility] Last Admin: 03/30/18 09:01 Dose: 40 mg - Labs Labs: 03/30/18 06:32 03/30/18 06:32 PT 13.6 SECONDS (9.7-12.2) H 03/20/18 07:25 INR 1.2 03/20/18 07:25 APTT 32 SECONDS (21-34) D 03/20/18 07:25 - Constitutional Appears: Non-toxic, Cachectic, Chronically Ill - Head Exam Head Exam: NORMOCEPHALIC - Eye Exam Eye Exam: PERRL - ENT Exam ENT Exam: Mucous Membranes Dry - Neck Exam Neck Exam: absent: Lymphadenopathy - Respiratory Exam Respiratory Exam: Decreased Breath Sounds, Rhonchi Additional comments: bilat Chest tubes - Cardiovascular Exam Cardiovascular Exam: REGULAR RHYTHM - GI/Abdominal Exam GI & Abdominal Exam: Distended, Soft - Rectal Exam Rectal Exam: Deferred - Exam Exam: NORMAL INSPECTION - Extremities Exam Extremities Exam: absent: Pedal Edema - Back Exam Back Exam: absent: CVA tenderness (L), CVA tenderness (R) - Neurological Exam Neurological Exam: Alert, Awake, Oriented x3 - Psychiatric Exam Psychiatric exam: Depressed - Skin Skin Exam: Dry Assessment and Plan (1) Anemia Status: Acute (2) Pneumonia Status: Acute (3) Lower GI bleeding Status: Acute (4) Mass in rectum Status: Acute (5) Rectal adenocarcinoma Status: Acute - Assessment and Plan (Free Text) Assessment: 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
[2018-03-31] MEDS: Albuterol-Ipratrop 3 mg / 0.5 (3 ml) UD INH SCH ×4 (01:49→19:59)
[2018-03-31 06:46] LABS: BASO % 0.4 % (0.0-2.0); HEMOGLOBIN 11.4 g/dL (12.0-18.0); LYMPH # 0.7 K/uL (1.0-4.3); LYMPH % 6.6 % (20.0-40.0); MEAN CORPUSCULAR HEMOGLOBIN 28.7 pg (27.0-31.0); MEAN PLATELET VOLUME 9.5 fL (7.2-11.7); MONO # 0.4 K/uL (0.0-0.8); MONO % 4.1 % (0.0-10.0); NEUT # 9.5 K/uL (1.8-7.0); NEUT % 88.9 % (50.0-75.0); PLATELET COUNT 224 K/uL (130-400); RBC 3.99 Mil/uL (4.40-5.90); RED CELL DISTRIBUTION WIDTH 17.9 % (11.5-14.5); WHITE BLOOD COUNT 10.7 K/uL (4.8-10.8)
[2018-03-31 06:55] LABS: ALB/GLOB RATIO 0.8 (1.0-2.1); ALBUMIN 3.1 g/dL (3.5-5.0); ALT/SGPT 27 U/L (21-72); AST/SGOT 22 U/L (17-59); BLOOD UREA NITROGEN 65 mg/dL (9-20); CALCIUM 8.5 mg/dl (8.6-10.4); GFR NON-AFRICAN AMERICAN 55
[2018-03-31] MEDS ORDERED: Sucralfate 1 gm/10 ml Oral Susp UD PO SCH (07:30)
[2018-03-31] MEDS: Pantoprazole 40 mg EC Tab PO SCH (09:21)
[2018-03-31] MEDS: cefTRIAXone 2 GM in Sodium Chloride 0.9% 100 ML IVPB SCH ×2 (09:22→20:33)
[2018-03-31 09:50] LABS: ANISOCYTOSIS SLIGHT; BANDS 1 % (0-2); LYMPHOCYTE 7 % (20-40); MONOCYTE 4 % (0-10); NEUTROPHIL 88 % (50-75); PLATELET ESTIMATE NORMAL (NORMAL); TOTAL CELLS COUNTED 100
--- NOTE | 2018-03-31 11:48 | CP.CCUPN ---
CCU Subjective - Physician Review Events Since Last Encounter (Free Text): 03/31/18 11:46 Patient now sitting up comfortably. He had an episodes of nausea yesterday. He is eating is still on the low side. Patient has a rectal cancer status post treatment for radiation. Admitted with the GI bleed. Patient also has a bilateral pleural effusion, significant improvement noted Clinical examination is unremarkable except emaciated looking. Mild respiratory distress at times. Edema negative Chest x-ray bilateral chest tube pigtail catheter noted There is no effusion now But drainage is still more than 100 Assessment: 67-year-old male admitted to the hospital with GI bleed Status post transfusion. Patient double up bilateral pulmonary edema transudate to Most likely related to heart failure Improving We will continue to monitor Possibly will start Lasix again. Removal of the catheter sewn. Physical therapy. Critical Care Time Spent (in minutes): 30 CCU Objective - Vital Signs / Intake & Output Vital Signs (Last 4 hours): Vital Signs Temp Pulse Resp BP Pulse Ox 03/31/18 10:00 93 H 16 107/40 L 99 03/31/18 09:00 92 H 15 110/40 L 100 03/31/18 08:07 92 H 03/31/18 08:00 97.4 F L 92 H 19 105/30 L 100 Intake and Output (Last 8hrs): Intake & Output 03/30/18 03/31/18 03/31/18 22:59 06:59 14:59 Intake Total 470 120 200 Output Total 225 505 0 Balance 245 -385 200 Weight 108 lb 11.2 oz Intake: Intake, IV Amount 100 Right Forearm 100 Oral 370 120 200 Output: Chest Tube Drainage 305 Left Upper Mid-Axillary 165 Chest Right Upper Mid-Axillary 140 Chest Urine 225 200 0 Urine, Voided 225 200 0 - Physical Exam Head: Positive for: Atraumatic, Normocephalic Pupils: Positive for: PERRL Extroacular Muscles: Positive for: Other (left eyeball with upward gaze deviation, blind in left eye, but R eye visual simpson grossly intact) Conjunctiva: Positive for: Normal. Negative for: Injected, Icteric Mouth: Positive for: Moist Mucous Membranes. Negative for: Dry, Drooling Pharnyx: Positive for: Normal Nose (External): Positive for: Atraumatic, Other (wearing NC 3L O2). Negative for: Abrasion, Contusion, Laceration Nose (Internal): Positive for: No Active Bleeding. Negative for: Epistaxis Neck: Positive for: Normal Range of Motion, Trachea Midline. Negative for: Lymphadenopathy Respiratory/Chest: Positive for: Good Air Exchange, Decreased Breath Sounds ( mildly decreased breath sounds at bilateral bases), Other (pigtail chest tubes bilaterally, draining serosanguinous fluid). Negative for: Respiratory Distress , Wheezes, Rhonchi, Tachypneic, Tender to Palpation Cardiovascular: Positive for: Regular Rate and Rhythm, Normal S1, S2. Negative for: Murmurs, Irregular Rhythm, Tachycardic, Bradycardic Abdomen: Positive for: Tenderness (mild tenderness epigastically after acute retching episode), Normal Bowel Sounds. Negative for: Distention, Rebound, Guarding, Mass/Organomegaly Upper Extremity: Positive for: Normal Inspection, NORMAL PULSES (+2 radials). Negative for: Cyanosis, Edema, Tenderness, Swelling, Erythema Lower Extremity: Positive for: Normal Inspection, NORMAL PULSES (+2 dorsalis pedis bilaterally). Negative for: Edema, CALF TENDERNESS, Cyanosis, Tenderness , Swelling, Erythema Neurological: Positive for: GCS=15, Speech Normal, Motor Func Grossly Intact, Other (following commands appropriately) Skin: Positive for: Warm, Dry, Normal Color. Negative for: Rashes Psychiatric: Positive for: Alert, Oriented x 3, Normal Affect, Normal Mood - Medications Active Medications: Active Medications Generic Name Dose Route Start Last Admin Trade Name Freq PRN Reason Stop Dose Admin Acetaminophen 650 mg 03/19/18 12:00 03/30/18 10:26 Tylenol 325mg Tab PO 650 mg Q4 PRN Administration Pain, Mild (1-3) Albuterol/Ipratropium 3 ml 03/24/18 14:00 03/31/18 08:10 Duoneb 3 Mg/0.5 Mg (3 Ml) Ud INH 3 ml RQ6 ANIYAH Administration Ferrous Sulfate 325 mg 03/19/18 10:00 03/31/18 09:21 Feosol PO 325 mg TID ANIYAH Administration Furosemide 20 mg 04/01/18 10:00 Lasix PO DAILY ANIYAH Ceftriaxone Sodium 2 gm/ 100 mls @ 100 mls/hr 03/27/18 09:30 03/31/18 09:22 Sodium Chloride IVPB 100 mls/hr Q12H ANIYAH Administration Protocol Lidocaine 1 ea 03/26/18 15:00 03/30/18 01:23 Lidoderm TD 1 ea Q24H PRN Administration Pain - see dose instructions Ondansetron HCl 4 mg 03/30/18 19:04 03/30/18 21:27 Zofran Inj IVP 4 mg Q6H PRN Administration Nausea/Vomiting Pantoprazole Sodium 40 mg 03/26/18 10:00 03/31/18 09:21 Protonix Ec Tab PO 40 mg DAILY ANIYAH Administration - Patient Studies Lab Studies: Microbiology Studies 03/25/18 12:12 Blood Culture - Final Blood NO GROWTH AFTER 5 DAYS Gram Stain - Final TEST NOT PERFORMED 03/25/18 12:12 Blood Culture - Final Blood NO GROWTH AFTER 5 DAYS Gram Stain - Final TEST NOT PERFORMED Lab Studies 03/31/18 03/31/18 Range/Units 06:36 06:33 WBC 10.7 (4.8-10.8) K/uL RBC 3.99 L (4.40-5.90) Mil/uL Hgb 11.4 L (12.0-18.0) g/dL Hct 34.7 L (35.0-51.0) % MCV 87.0 (80.0-94.0) fL MCH 28.7 (27.0-31.0) pg MCHC 33.0 (33.0-37.0) g/dL RDW 17.9 H (11.5-14.5) % Plt Count 224 (130-400) K/uL MPV 9.5 (7.2-11.7) fL Neut % (Auto) 88.9 H (50.0-75.0) % Lymph % (Auto) 6.6 L (20.0-40.0) % [place] % (Auto) 4.1 (0.0-10.0) % Eos % (Auto) 0.0 (0.0-4.0) % Baso % (Auto) 0.4 (0.0-2.0) % Neut # (Auto) 9.5 H (1.8-7.0) K/uL Lymph # (Auto) 0.7 L (1.0-4.3) K/uL [place] # (Auto) 0.4 (0.0-0.8) K/uL Eos # (Auto) 0.0 (0.0-0.7) K/uL Baso # (Auto) 0.0 (0.0-0.2) K/uL Neutrophils % (Manual) 88 H (50-75) % Band Neutrophils % 1 (0-2) % Lymphocytes % (Manual) 7 L (20-40) % Monocytes % (Manual) 4 (0-10) % Platelet Estimate Normal (NORMAL) Anisocytosis (manual) Slight Sodium 133 (132-148) mmol/L Potassium 4.4 (3.6-5.2) mmol/L Chloride 94 L (98-107) mmol/L Carbon Dioxide 29 (22-30) mmol/L Anion Gap 14 (10-20) BUN 65 H (9-20) mg/dL Creatinine 1.3 (0.8-1.5) mg/dL Est GFR ( Amer) > 60 Est GFR (Non-Af Amer) 55 Random Glucose 147 H (75-110) mg/dL Calcium 8.5 L (8.6-10.4) mg/dl Phosphorus 4.6 H (2.5-4.5) mg/dL Magnesium 2.9 H (1.6-2.3) mg/dL Total Bilirubin 0.4 (0.2-1.3) mg/dL AST 22 (17-59) U/L ALT 27 (21-72) U/L Alkaline Phosphatase 99 (38-126) U/L Total Protein 6.8 (6.3-8.3) g/dL Albumin 3.1 L (3.5-5.0) g/dL Globulin 3.7 (2.2-3.9) gm/dL Albumin/Globulin Ratio 0.8 L (1.0-2.1) Laboratory Results - last 24 hr 03/31/18 03/31/18 06:33 06:36 WBC 10.7 RBC 3.99 L Hgb 11.4 L Hct 34.7 L MCV 87.0 MCH 28.7 MCHC 33.0 RDW 17.9 H Plt Count 224 MPV 9.5 Neut % (Auto) 88.9 H Lymph % (Auto) 6.6 L [place] % (Auto) 4.1 Eos % (Auto) 0.0 Baso % (Auto) 0.4 Neut # (Auto) 9.5 H Lymph # (Auto) 0.7 L [place] # (Auto) 0.4 Eos # (Auto) 0.0 Baso # (Auto) 0.0 Neutrophils % (Manual) 88 H Band Neutrophils % 1 Lymphocytes % (Manual) 7 L Monocytes % (Manual) 4 Platelet Estimate Normal Anisocytosis (manual) Slight Sodium 133 Potassium 4.4 Chloride 94 L Carbon Dioxide 29 Anion Gap 14 BUN 65 H Creatinine 1.3 Est GFR ( Amer) > 60 Est GFR (Non-Af Amer) 55 Random Glucose 147 H Calcium 8.5 L Phosphorus 4.6 H Magnesium 2.9 H Total Bilirubin 0.4 AST 22 ALT 27 Alkaline Phosphatase 99 Total Protein 6.8 Albumin 3.1 L Globulin 3.7 Albumin/Globulin Ratio 0.8 L EKG/Cardiology Studies: Cardiology / EKG Studies 03/30/18 14:05 EKG [ELECTROCARDIOGRAM] Routine Comment: Mode Of Transportation: Reason For Exam: assess QTc Precautions: Standard Fingerstick Blood Sugar Results: 174 Critical Care Progress Note - Nutrition Nutrition: Nutrition Category Date Time Status Heart Healthy Diet [DIET] Diets 03/27/18 Breakfast Active
--- NOTE | 2018-04-01 00:11 | CP.PCM.PN ---
Subjective - Date & Time of Evaluation Date of Evaluation: 03/31/18 Time of Evaluation: 20:00 - Subjective Subjective: Patient has no SOB, but appetite remains poor. Pleural fluid is a transudate, and still draining in both chest tubes. However BUN is trending up. Pre-renal azotenia vs GI bleeding vs low cardiac output. But Echo shows normal LV systolic function, aortic valve vegetations and AI. Will do АЛЕКСАНДР when patient is medically more stable. Objective - Vital Signs/Intake and Output Vital Signs (last 24 hours): Temp Pulse Resp BP Pulse Ox 97.4 F L 85 14 109/33 L 97 03/31/18 20:00 03/31/18 23:00 03/31/18 23:00 03/31/18 23:00 03/31/18 23:00 Intake and Output: 03/31/18 04/01/18 18:59 06:59 Intake Total 500 0 Output Total 825 Balance -325 0 - Medications Medications: Current Medications Acetaminophen (Tylenol 325mg Tab) 650 mg PO Q4 PRN PRN Reason: Pain, Mild (1-3) Last Admin: 03/30/18 10:26 Dose: 650 mg Albuterol/Ipratropium (Duoneb 3 Mg/0.5 Mg (3 Ml) Ud) 3 ml INH RQ6 ANIYAH Last Admin: 03/31/18 19:59 Dose: 3 ml Ferrous Sulfate (Feosol) 325 mg PO TID ANIYAH Last Admin: 03/31/18 17:45 Dose: 325 mg Furosemide (Lasix) 20 mg PO DAILY ANIYAH Ceftriaxone Sodium 2 gm/ (Sodium Chloride) 100 mls @ 100 mls/hr IVPB Q12H ANIYAH PRN Reason: Protocol Last Admin: 03/31/18 20:33 Dose: 100 mls/hr Lidocaine (Lidoderm) 1 ea TD Q24H PRN PRN Reason: Pain - see dose instructions Last Admin: 03/30/18 01:23 Dose: 1 ea Ondansetron HCl (Zofran Inj) 4 mg IVP Q6H PRN PRN Reason: Nausea/Vomiting Last Admin: 03/30/18 21:27 Dose: 4 mg Pantoprazole Sodium (Protonix Ec Tab) 40 mg PO DAILY ANIYAH Last Admin: 03/31/18 09:21 Dose: 40 mg - Labs Labs: 03/31/18 06:36 03/31/18 06:33 PT 13.6 SECONDS (9.7-12.2) H 03/20/18 07:25 INR 1.2 03/20/18 07:25 APTT 32 SECONDS (21-34) D 03/20/18 07:25 - Constitutional Appears: No Acute Distress, Cachectic, Chronically Ill - Head Exam Head Exam: NORMAL INSPECTION - Eye Exam Eye Exam: Normal appearance - ENT Exam ENT Exam: Normal Exam - Respiratory Exam Additional comments: Few rhonchi heard bibasilarly. - Cardiovascular Exam Cardiovascular Exam: REGULAR RHYTHM, Murmur - GI/Abdominal Exam GI & Abdominal Exam: Soft, Normal Bowel Sounds - Rectal Exam Rectal Exam: Deferred - Exam Exam: NORMAL INSPECTION - Extremities Exam Extremities Exam: Normal Inspection - Back Exam Back Exam: NORMAL INSPECTION - Neurological Exam Neurological Exam: Alert, Awake, Oriented x3 - Psychiatric Exam Psychiatric exam: Anxious - Skin Skin Exam: Dry, Intact, Normal Color, Warm Assessment and Plan (1) Lower GI bleeding Status: Resolved (2) Anemia Status: Acute (3) Pneumonia Assessment & Plan: On IV antibiotic Status: Acute (4) Hyperkalemia Status: Resolved (5) Hyponatremia Status: Resolved (6) Acute diastolic (congestive) heart failure Status: Resolved (7) Acute bacterial endocarditis Assessment & Plan: On IV antibiotic Status: Acute (8) Acute non-ST elevation myocardial infarction (NSTEMI) Status: Acute (9) Bilateral pleural effusion Assessment & Plan: Pleural fluid is a transudate: CHF vs low albunemia. Will do АЛЕКСАНДР when the patient is a little more stable medically. Status: Acute
[2018-04-01] MEDS: Albuterol-Ipratrop 3 mg / 0.5 (3 ml) UD INH SCH ×4 (01:21→19:47)
[2018-04-01 06:10] LABS: BASO % 0.4 % (0.0-2.0); LYMPH # 0.6 K/uL (1.0-4.3); LYMPH % 5.5 % (20.0-40.0); MEAN CELL VOLUME 85.9 fL (80.0-94.0); MEAN CORPUSCULAR HEMOGLOBIN 29.1 pg (27.0-31.0); MEAN CORPUSCULAR HGB CONC 33.9 g/dL (33.0-37.0); MEAN PLATELET VOLUME 9.6 fL (7.2-11.7); MONO # 0.5 K/uL (0.0-0.8); MONO % 4.3 % (0.0-10.0); NEUT # 9.8 K/uL (1.8-7.0); NEUT % 89.8 % (50.0-75.0); PLATELET COUNT 140 K/uL (130-400); RBC 3.77 Mil/uL (4.40-5.90); RED CELL DISTRIBUTION WIDTH 18.6 % (11.5-14.5); WHITE BLOOD COUNT 10.9 K/uL (4.8-10.8)
[2018-04-01 06:30] LABS: ALB/GLOB RATIO 0.9 (1.0-2.1); ALBUMIN 3.2 g/dL (3.5-5.0); ALT/SGPT 25 U/L (21-72); AST/SGOT 30 U/L (17-59); BLOOD UREA NITROGEN 66 mg/dL (9-20); CALCIUM 8.5 mg/dl (8.6-10.4); GFR NON-AFRICAN AMERICAN > 60
[2018-04-01 08:19] LABS: BANDS 1 % (0-2); TOTAL CELLS COUNTED 100
[2018-04-01 08:20] LABS: ANISOCYTOSIS SLIGHT; HYPOCHROMIC SLIGHT; LYMPHOCYTE 5 % (20-40); MONOCYTE 4 % (0-10); NEUTROPHIL 90 % (50-75); PLATELET ESTIMATE NORMAL (NORMAL); POIKILOCYTOSIS SLIGHT
[2018-04-01] MEDS: Pantoprazole 40 mg EC Tab PO SCH (09:11)
[2018-04-01] MEDS: cefTRIAXone 2 GM in Sodium Chloride 0.9% 100 ML IVPB SCH ×2 (09:11→20:53)
--- NOTE | 2018-04-01 10:15 | RAD ---
Date of service: 04/01/2018 HISTORY: bilateral chest tube COMPARISON: 03/30/2018 FINDINGS: LUNGS: No consolidation. Pulmonary venous congestion/ interstitial and minimal pulmonary edema possible. No worsening suggested. PLEURA: No significant pleural effusion identified, no pneumothorax apparent. CARDIOVASCULAR: Cardiomegaly-similar. Minimal pulmonary venous congestion trace interstitial pulmonary edema - probable ; similar OSSEOUS STRUCTURES: Bilateral shoulder arthrosis. VISUALIZED UPPER ABDOMEN: Normal. OTHER FINDINGS: The pigtail catheters ovary each costophrenic angle are similar appearing. No reaccumulating or any significant appearing pleural effusion noted. IMPRESSION: The previously referenced mildly coarsened interstitial lung markings are similar. Mild pulmonary venous congestion/ interstitial pulmonary edema is compatible with this. No interval consolidation a worsening effusion. No interval consolidation or atelectasis. The pigtail catheters ovary each costophrenic angle are as before without worsening or even any evidence of any significant appearing pleural effusion here. No gross pneumothorax seen.
--- NOTE | 2018-04-01 10:17 | CP.CCUPN ---
<Luis Bolaños - Last Filed: 04/01/18 10:18> CCU Subjective - Physician Review Subjective (Free Text): Critical Care Progress Note: Patient seen and examined at bedside. No acute events overnight. Patient currently doing well with no complaints. On nasal cannula. still has poor appetite. . Denies any chest pain or sb. No melena. No other complaints. CCU Objective - Vital Signs / Intake & Output Vital Signs (Last 4 hours): Vital Signs Temp Pulse Resp BP Pulse Ox 04/01/18 09:11 118/57 L 04/01/18 09:00 100 H 17 118/37 L 04/01/18 08:00 97.4 F L 105/31 L 04/01/18 07:51 99 H 04/01/18 07:00 88 13 102/31 L 100 Intake and Output (Last 8hrs): Intake & Output 03/31/18 04/01/18 04/01/18 22:59 06:59 14:59 Intake Total 220 0 220 Output Total 525 610 Balance -305 -610 220 Weight 107 lb Intake: Intake, IV Amount 100 100 Right Forearm 100 100 Oral 120 0 120 Output: Chest Tube Drainage 225 60 Left Upper Mid-Axillary 115 50 Chest Right Upper Mid-Axillary 110 10 Chest Urine 300 550 Urine, Voided 300 550 - Physical Exam Head: Positive for: Atraumatic, Normocephalic Pupils: Positive for: PERRL Extroacular Muscles: Positive for: Other (left eyeball with upward gaze deviation, blind in left eye, but R eye visual simpson grossly intact) Conjunctiva: Positive for: Normal. Negative for: Injected, Icteric Mouth: Positive for: Moist Mucous Membranes. Negative for: Dry, Drooling Pharnyx: Positive for: Normal Nose (External): Positive for: Atraumatic, Other (wearing NC 3L O2). Negative for: Abrasion, Contusion, Laceration Nose (Internal): Positive for: No Active Bleeding. Negative for: Epistaxis Neck: Positive for: Normal Range of Motion, Trachea Midline. Negative for: Lymphadenopathy Respiratory/Chest: Positive for: Good Air Exchange, Decreased Breath Sounds ( mildly decreased breath sounds at bilateral bases), Other (pigtail chest tubes bilaterally, draining serosanguinous fluid). Negative for: Respiratory Distress , Wheezes, Rhonchi, Tachypneic, Tender to Palpation Cardiovascular: Positive for: Regular Rate and Rhythm, Normal S1, S2. Negative for: Murmurs, Irregular Rhythm, Tachycardic, Bradycardic Abdomen: Positive for: Tenderness (mild tenderness epigastically after acute retching episode), Normal Bowel Sounds. Negative for: Distention, Rebound, Guarding, Mass/Organomegaly Upper Extremity: Positive for: Normal Inspection, NORMAL PULSES (+2 radials). Negative for: Cyanosis, Edema, Tenderness, Swelling, Erythema Lower Extremity: Positive for: Normal Inspection, NORMAL PULSES (+2 dorsalis pedis bilaterally). Negative for: Edema, CALF TENDERNESS, Cyanosis, Tenderness , Swelling, Erythema Neurological: Positive for: GCS=15, Speech Normal, Motor Func Grossly Intact, Other (following commands appropriately) Skin: Positive for: Warm, Dry, Normal Color. Negative for: Rashes Psychiatric: Positive for: Alert, Oriented x 3, Normal Affect, Normal Mood - Medications Active Medications: Active Medications Generic Name Dose Route Start Last Admin Trade Name Freq PRN Reason Stop Dose Admin Acetaminophen 650 mg 03/19/18 12:00 03/30/18 10:26 Tylenol 325mg Tab PO 650 mg Q4 PRN Administration Pain, Mild (1-3) Albuterol/Ipratropium 3 ml 03/24/18 14:00 04/01/18 07:54 Duoneb 3 Mg/0.5 Mg (3 Ml) Ud INH 3 ml RQ6 ANIYAH Administration Ferrous Sulfate 325 mg 03/19/18 10:00 04/01/18 09:11 Feosol PO 325 mg TID ANIYAH Administration Furosemide 20 mg 04/01/18 10:00 04/01/18 09:11 Lasix PO 20 mg DAILY ANIYAH Administration Ceftriaxone Sodium 2 gm/ 100 mls @ 100 mls/hr 03/27/18 09:30 04/01/18 09:11 Sodium Chloride IVPB 100 mls/hr Q12H ANIYAH Administration Protocol Lidocaine 1 ea 03/26/18 15:00 03/30/18 01:23 Lidoderm TD 1 ea Q24H PRN Administration Pain - see dose instructions Ondansetron HCl 4 mg 03/30/18 19:04 03/30/18 21:27 Zofran Inj IVP 4 mg Q6H PRN Administration Nausea/Vomiting Pantoprazole Sodium 40 mg 03/26/18 10:00 04/01/18 09:11 Protonix Ec Tab PO 40 mg DAILY ANIYAH Administration - Patient Studies Lab Studies: Lab Studies 04/01/18 04/01/18 Range/Units 05:59 05:59 WBC 10.9 H (4.8-10.8) K/uL RBC 3.77 L (4.40-5.90) Mil/uL Hgb 11.0 L (12.0-18.0) g/dL Hct 32.3 L (35.0-51.0) % MCV 85.9 (80.0-94.0) fL MCH 29.1 (27.0-31.0) pg MCHC 33.9 (33.0-37.0) g/dL RDW 18.6 H (11.5-14.5) % Plt Count 140 (130-400) K/uL MPV 9.6 (7.2-11.7) fL Neut % (Auto) 89.8 H (50.0-75.0) % Lymph % (Auto) 5.5 L (20.0-40.0) % Jackson % (Auto) 4.3 (0.0-10.0) % Eos % (Auto) 0.0 (0.0-4.0) % Baso % (Auto) 0.4 (0.0-2.0) % Neut # (Auto) 9.8 H (1.8-7.0) K/uL Lymph # (Auto) 0.6 L (1.0-4.3) K/uL Jackson # (Auto) 0.5 (0.0-0.8) K/uL Eos # (Auto) 0.0 (0.0-0.7) K/uL Baso # (Auto) 0.0 (0.0-0.2) K/uL Neutrophils % (Manual) 90 H (50-75) % Band Neutrophils % 1 (0-2) % Lymphocytes % (Manual) 5 L (20-40) % Monocytes % (Manual) 4 (0-10) % Platelet Estimate Normal (NORMAL) Hypochromasia (manual) Slight Poikilocytosis (manual Slight Anisocytosis (manual) Slight Sodium 132 (132-148) mmol/L Potassium 4.6 (3.6-5.2) mmol/L Chloride 98 (98-107) mmol/L Carbon Dioxide 25 (22-30) mmol/L Anion Gap 13 (10-20) BUN 66 H (9-20) mg/dL Creatinine 1.0 (0.8-1.5) mg/dL Est GFR ( Amer) > 60 Est GFR (Non-Af Amer) > 60 Random Glucose 144 H (75-110) mg/dL Calcium 8.5 L (8.6-10.4) mg/dl Phosphorus 4.1 (2.5-4.5) mg/dL Magnesium 3.0 H (1.6-2.3) mg/dL Total Bilirubin 0.6 (0.2-1.3) mg/dL AST 30 (17-59) U/L ALT 25 (21-72) U/L Alkaline Phosphatase 88 (38-126) U/L Total Protein 7.0 (6.3-8.3) g/dL Albumin 3.2 L (3.5-5.0) g/dL Globulin 3.7 (2.2-3.9) gm/dL Albumin/Globulin Ratio 0.9 L (1.0-2.1) Laboratory Results - last 24 hr 04/01/18 04/01/18 05:59 05:59 WBC 10.9 H RBC 3.77 L Hgb 11.0 L Hct 32.3 L MCV 85.9 MCH 29.1 MCHC 33.9 RDW 18.6 H Plt Count 140 MPV 9.6 Neut % (Auto) 89.8 H Lymph % (Auto) 5.5 L Jackson % (Auto) 4.3 Eos % (Auto) 0.0 Baso % (Auto) 0.4 Neut # (Auto) 9.8 H Lymph # (Auto) 0.6 L Jackson # (Auto) 0.5 Eos # (Auto) 0.0 Baso # (Auto) 0.0 Neutrophils % (Manual) 90 H Band Neutrophils % 1 Lymphocytes % (Manual) 5 L Monocytes % (Manual) 4 Platelet Estimate Normal Hypochromasia (manual) Slight Poikilocytosis (manual Slight Anisocytosis (manual) Slight Sodium 132 Potassium 4.6 Chloride 98 Carbon Dioxide 25 Anion Gap 13 BUN 66 H Creatinine 1.0 Est GFR ( Amer) > 60 Est GFR (Non-Af Amer) > 60 Random Glucose 144 H Calcium 8.5 L Phosphorus 4.1 Magnesium 3.0 H Total Bilirubin 0.6 AST 30 ALT 25 Alkaline Phosphatase 88 Total Protein 7.0 Albumin 3.2 L Globulin 3.7 Albumin/Globulin Ratio 0.9 L Fingerstick Blood Sugar Results: 174 Review of Systems - Review of Systems All systems: reviewed and no additional remarkable complaints except (HPI) Critical Care Progress Note - Nutrition Nutrition: Nutrition Category Date Time Status Heart Healthy Diet [DIET] Diets 03/27/18 Breakfast Active Assessment/Plan - Assessment and Plan (Free Text) Assessment: 67 yo M with PMH of 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 P/p right-sided thoracentesis, 1.5L removed, and L sided thoracentesis, 860ml removed. Repeat CT scan showed re-accumulated bilateral pleural effusions. S/p bilateral pigtail chest tubes. Drainage of chestubes: L -120ml and R - 165ml in last 24 hrs. Plan: Neuro: -pt is awake and alert -maintain normothermia Pulm: -Drainage of chestubes: L -120ml and R - 165ml in last 24 hrs. Once drainage is <100ml in 24 hours will plan to d/c the pigtail chest tubes. -Tolerating 3L NC O2 well, satting well -Continue q6 nebs -s/p bilateral pigtail chest tube insertion by IR, continuing to drain, drainage increased in last 24 hours, continue to monitor -Consulted cardiothoracic for recs; no intervention at this time -Follow up IR consult for recs -Septic work up neg for mycoplasma and Leigonella -maintain SaO2 > 92% -Encourage Incentive spirometer Cardio: -Hemodynamically stable -Given strep bacteremia and aortic valve thickening on Echo, Cardiology consulted for possible АЛЕКСАНДР to r/o any aortic vegetations; continue Rocephin -maintaining MAP > 65 -Echo 03/21: EF 41%, grade-1 abnormal relaxation patter on transmitral doppler, severely thickened aortic valve, cannot exclude aortic valve vegitation -Increasing trop from 03/20-03/21, concerning for NSTEMI; not currently on AC due to concern for bleeding GI: -Encouraging PO intake, domestic cleaner referral placed -HHD -daily protonix for GI ppx -GI signed off, recs radiation course as planned with Rad-onc Renal: -monitor I and O -replete electrolytes as needed Heme: -Monitor H/H, stable today at -No AC at this time due to concern for bleeding and given rectal bleeding on presentation; SCDs for DVT ppx -Heme-onc following; continue radiation therapy, can start Xeloda as outpatient ID: -WBCs improved to 10.9, remains afebrile -blood cultures positive x2 for Strep Viridans bacteremia, Repeat blood cx x2 neg x5 days -ID following, appreciate all recs; Cont Rocephin which is sensitive to Strep Viridans bacteremia, needs АЛЕКСАНДР once more medically stable Endo: -maintain euglycemia GI/DVT ppx Case and plan was reviewed and discussed with attending, Dr. Alarcon. <Nael Alarcon - Last Filed: 04/01/18 17:46> CCU Objective - Vital Signs / Intake & Output Vital Signs (Last 4 hours): Vital Signs Temp Pulse Resp BP Pulse Ox 04/01/18 16:00 97.8 F 89 16 108/35 L 100 04/01/18 15:00 92 H 17 105/27 L 100 04/01/18 14:05 94 H 04/01/18 14:00 90 16 98/23 L 100 Intake and Output (Last 8hrs): Intake & Output 04/01/18 04/01/18 04/01/18 06:59 14:59 22:59 Intake Total 0 220 Output Total 610 Balance -610 220 Weight 107 lb Intake: Intake, IV Amount 100 Right Forearm 100 Oral 0 120 Output: Chest Tube Drainage 60 Left Upper Mid-Axillary 50 Chest Right Upper Mid-Axillary 10 Chest Urine 550 Urine, Voided 550 - Medications Active Medications: Active Medications Generic Name Dose Route Start Last Admin Trade Name Freq PRN Reason Stop Dose Admin Acetaminophen 650 mg 03/19/18 12:00 03/30/18 10:26 Tylenol 325mg Tab PO 650 mg Q4 PRN Administration Pain, Mild (1-3) Albuterol/Ipratropium 3 ml 03/24/18 14:00 04/01/18 14:07 Duoneb 3 Mg/0.5 Mg (3 Ml) Ud INH 3 ml RQ6 ANIYAH Administration Ferrous Sulfate 325 mg 03/19/18 10:00 04/01/18 15:17 Feosol PO 325 mg TID ANIYAH Administration Furosemide 20 mg 04/01/18 10:00 04/01/18 09:11 Lasix PO 20 mg DAILY ANIYAH Administration Ceftriaxone Sodium 2 gm/ 100 mls @ 100 mls/hr 03/27/18 09:30 04/01/18 09:11 Sodium Chloride IVPB 100 mls/hr Q12H ANIYAH Administration Protocol Lidocaine 1 ea 03/26/18 15:00 03/30/18 01:23 Lidoderm TD 1 ea Q24H PRN Administration Pain - see dose instructions Ondansetron HCl 4 mg 03/30/18 19:04 03/30/18 21:27 Zofran Inj IVP 4 mg Q6H PRN Administration Nausea/Vomiting Pantoprazole Sodium 40 mg 03/26/18 10:00 04/01/18 09:11 Protonix Ec Tab PO 40 mg DAILY ANIYAH Administration - Patient Studies Lab Studies: Lab Studies 04/01/18 04/01/18 Range/Units 05:59 05:59 WBC 10.9 H (4.8-10.8) K/uL RBC 3.77 L (4.40-5.90) Mil/uL Hgb 11.0 L (12.0-18.0) g/dL Hct 32.3 L (35.0-51.0) % MCV 85.9 (80.0-94.0) fL MCH 29.1 (27.0-31.0) pg MCHC 33.9 (33.0-37.0) g/dL RDW 18.6 H (11.5-14.5) % Plt Count 140 (130-400) K/uL MPV 9.6 (7.2-11.7) fL Neut % (Auto) 89.8 H (50.0-75.0) % Lymph % (Auto) 5.5 L (20.0-40.0) % Jackson % (Auto) 4.3 (0.0-10.0) % Eos % (Auto) 0.0 (0.0-4.0) % Baso % (Auto) 0.4 (0.0-2.0) % Neut # (Auto) 9.8 H (1.8-7.0) K/uL Lymph # (Auto) 0.6 L (1.0-4.3) K/uL Jackson # (Auto) 0.5 (0.0-0.8) K/uL Eos # (Auto) 0.0 (0.0-0.7) K/uL Baso # (Auto) 0.0 (0.0-0.2) K/uL Neutrophils % (Manual) 90 H (50-75) % Band Neutrophils % 1 (0-2) % Lymphocytes % (Manual) 5 L (20-40) % Monocytes % (Manual) 4 (0-10) % Platelet Estimate Normal (NORMAL) Hypochromasia (manual) Slight Poikilocytosis (manual Slight Anisocytosis (manual) Slight Sodium 132 (132-148) mmol/L Potassium 4.6 (3.6-5.2) mmol/L Chloride 98 (98-107) mmol/L Carbon Dioxide 25 (22-30) mmol/L Anion Gap 13 (10-20) BUN 66 H (9-20) mg/dL Creatinine 1.0 (0.8-1.5) mg/dL Est GFR ( Amer) > 60 Est GFR (Non-Af Amer) > 60 Random Glucose 144 H (75-110) mg/dL Calcium 8.5 L (8.6-10.4) mg/dl Phosphorus 4.1 (2.5-4.5) mg/dL Magnesium 3.0 H (1.6-2.3) mg/dL Total Bilirubin 0.6 (0.2-1.3) mg/dL AST 30 (17-59) U/L ALT 25 (21-72) U/L Alkaline Phosphatase 88 (38-126) U/L Total Protein 7.0 (6.3-8.3) g/dL Albumin 3.2 L (3.5-5.0) g/dL Globulin 3.7 (2.2-3.9) gm/dL Albumin/Globulin Ratio 0.9 L (1.0-2.1) Laboratory Results - last 24 hr 04/01/18 04/01/18 05:59 05:59 WBC 10.9 H RBC 3.77 L Hgb 11.0 L Hct 32.3 L MCV 85.9 MCH 29.1 MCHC 33.9 RDW 18.6 H Plt Count 140 MPV 9.6 Neut % (Auto) 89.8 H Lymph % (Auto) 5.5 L Jackson % (Auto) 4.3 Eos % (Auto) 0.0 Baso % (Auto) 0.4 Neut # (Auto) 9.8 H Lymph # (Auto) 0.6 L Jackson # (Auto) 0.5 Eos # (Auto) 0.0 Baso # (Auto) 0.0 Neutrophils % (Manual) 90 H Band Neutrophils % 1 Lymphocytes % (Manual) 5 L Monocytes % (Manual) 4 Platelet Estimate Normal Hypochromasia (manual) Slight Poikilocytosis (manual Slight Anisocytosis (manual) Slight Sodium 132 Potassium 4.6 Chloride 98 Carbon Dioxide 25 Anion Gap 13 BUN 66 H Creatinine 1.0 Est GFR ( Amer) > 60 Est GFR (Non-Af Amer) > 60 Random Glucose 144 H Calcium 8.5 L Phosphorus 4.1 Magnesium 3.0 H Total Bilirubin 0.6 AST 30 ALT 25 Alkaline Phosphatase 88 Total Protein 7.0 Albumin 3.2 L Globulin 3.7 Albumin/Globulin Ratio 0.9 L Critical Care Progress Note - Nutrition Nutrition: Nutrition Category Date Time Status Heart Healthy Diet [DIET] Diets 03/27/18 Breakfast Active Attending/Attestation - Attestation I have personally seen and examined this patient.: Yes I have fully participated in the care of the patient.: Yes I have reviewed all pertinent clinical information: Yes Notes (Text): 04/01/18 17:46 Patient seen and examined in the intensive care unit. Patient stable for transfer to floor Discontinue chest tube Continue present treatment hold Lasix
--- NOTE | 2018-04-01 12:55 | CP.PCM.PN ---
Subjective - Date & Time of Evaluation Date of Evaluation: 04/01/18 Time of Evaluation: 10:00 - Subjective Subjective: awake alert afebrile nad chest tubes in place Objective - Vital Signs/Intake and Output Vital Signs (last 24 hours): Temp Pulse Resp BP Pulse Ox 97.5 F L 97 H 23 105/26 L 100 04/01/18 12:00 04/01/18 12:00 04/01/18 12:00 04/01/18 12:00 04/01/18 12:00 Intake and Output: 04/01/18 04/01/18 06:59 18:59 Intake Total 100 220 Output Total 610 Balance -510 220 - Medications Medications: Current Medications Acetaminophen (Tylenol 325mg Tab) 650 mg PO Q4 PRN PRN Reason: Pain, Mild (1-3) Last Admin: 03/30/18 10:26 Dose: 650 mg Albuterol/Ipratropium (Duoneb 3 Mg/0.5 Mg (3 Ml) Ud) 3 ml INH RQ6 ANIYAH Last Admin: 04/01/18 07:54 Dose: 3 ml Ferrous Sulfate (Feosol) 325 mg PO TID ANIYAH Last Admin: 04/01/18 09:11 Dose: 325 mg Furosemide (Lasix) 20 mg PO DAILY [facility] Last Admin: 04/01/18 09:11 Dose: 20 mg Ceftriaxone Sodium 2 gm/ (Sodium Chloride) 100 mls @ 100 mls/hr IVPB Q12H ANIYAH PRN Reason: Protocol Last Admin: 04/01/18 09:11 Dose: 100 mls/hr Lidocaine (Lidoderm) 1 ea TD Q24H PRN PRN Reason: Pain - see dose instructions Last Admin: 03/30/18 01:23 Dose: 1 ea Ondansetron HCl (Zofran Inj) 4 mg IVP Q6H PRN PRN Reason: Nausea/Vomiting Last Admin: 03/30/18 21:27 Dose: 4 mg Pantoprazole Sodium (Protonix Ec Tab) 40 mg PO DAILY [facility] Last Admin: 04/01/18 09:11 Dose: 40 mg - Labs Labs: 04/01/18 05:59 04/01/18 05:59 PT 13.6 SECONDS (9.7-12.2) H 03/20/18 07:25 INR 1.2 03/20/18 07:25 APTT 32 SECONDS (21-34) D 03/20/18 07:25 - Constitutional Appears: Non-toxic, Chronically Ill - Head Exam Head Exam: NORMOCEPHALIC - Eye Exam Eye Exam: PERRL - ENT Exam ENT Exam: Mucous Membranes Dry - Neck Exam Neck Exam: absent: Lymphadenopathy - Respiratory Exam Respiratory Exam: Decreased Breath Sounds - Cardiovascular Exam Cardiovascular Exam: REGULAR RHYTHM - GI/Abdominal Exam GI & Abdominal Exam: Distended, Soft - Rectal Exam Rectal Exam: Deferred - Exam Exam: NORMAL INSPECTION - Extremities Exam Extremities Exam: absent: Pedal Edema - Back Exam Back Exam: absent: CVA tenderness (L), CVA tenderness (R) Assessment and Plan (1) Anemia Status: Acute (2) Pneumonia Status: Acute (3) Lower GI bleeding Status: Resolved (4) Mass in rectum Status: Acute (5) Rectal adenocarcinoma Status: Acute
--- NOTE | 2018-04-01 15:56 | CARD ---
APPROVED REPORT Date of service: 03/30/2018 EKG Measurement Heart [id number] <Conclusion> Normal sinus rhythm Left ventricular hypertrophy with repolarization abnormality Consider lateral ischemia Abnormal ECG
[2018-04-02] MEDS: Albuterol-Ipratrop 3 mg / 0.5 (3 ml) UD INH SCH ×4 (01:25→20:50)
--- NOTE | 2018-04-02 07:57 | RAD ---
Date of service: 04/02/2018 HISTORY: bilateral chest tubes COMPARISON: Portable chest 04/01/2018. FINDINGS: LUNGS: No alveolitis appreciated bilaterally. Left pleural drainage catheter unchanged in position. PLEURA: No significant pleural effusion identified, no pneumothorax apparent. CARDIOVASCULAR: Cardiomegaly is stable. Borderline pulmonary vascular congestion evident. OSSEOUS STRUCTURES: No significant abnormalities. VISUALIZED UPPER ABDOMEN: Normal. OTHER FINDINGS: None. IMPRESSION: Borderline pulmonary vascular congestion. No alveolitis bilaterally. Left pleural drainage catheter unchanged in position. No pleural effusion or pneumothorax bilaterally.
[2018-04-02] MEDS: cefTRIAXone 2 GM in Sodium Chloride 0.9% 100 ML IVPB SCH ×2 (09:43→21:05)
[2018-04-02] MEDS: Pantoprazole 40 mg EC Tab PO SCH (09:45)
--- NOTE | 2018-04-03 00:07 | CP.PCM.PN ---
Subjective - Date & Time of Evaluation Date of Evaluation: 04/03/18 Time of Evaluation: 13:30 - Subjective Subjective: Patient has no SOB, no rectal bleeding, no chest pain, but still with poor appetite. Chest tube still draining. Objective - Vital Signs/Intake and Output Vital Signs (last 24 hours): Temp Pulse Resp BP Pulse Ox 98.4 F 83 19 117/40 L 98 04/02/18 20:00 04/02/18 18:00 04/02/18 16:00 04/02/18 12:00 04/02/18 16:00 Intake and Output: 04/02/18 04/03/18 18:59 06:59 Intake Total 500 Output Total 650 Balance -150 - Medications Medications: Current Medications Acetaminophen (Tylenol 325mg Tab) 650 mg PO Q4 PRN PRN Reason: Pain, Mild (1-3) Last Admin: 03/30/18 10:26 Dose: 650 mg Albuterol/Ipratropium (Duoneb 3 Mg/0.5 Mg (3 Ml) Ud) 3 ml INH RQ6 [facility] Last Admin: 04/02/18 20:50 Dose: 3 ml Ferrous Sulfate (Feosol) 325 mg PO TID [facility] Last Admin: 04/02/18 17:24 Dose: 325 mg Furosemide (Lasix) 20 mg PO DAILY [facility] Last Admin: 04/01/18 09:11 Dose: 20 mg Ceftriaxone Sodium 2 gm/ (Sodium Chloride) 100 mls @ 100 mls/hr IVPB Q12H ANIYAH PRN Reason: Protocol Last Admin: 04/02/18 21:05 Dose: 100 mls/hr Lidocaine (Lidoderm) 2 ea TD Q24H PRN PRN Reason: PAIN -- SEE DOSE INSTRUCTIONS Ondansetron HCl (Zofran Inj) 4 mg IVP Q6H PRN PRN Reason: Nausea/Vomiting Last Admin: 03/30/18 21:27 Dose: 4 mg Pantoprazole Sodium (Protonix Ec Tab) 40 mg PO DAILY [facility] Last Admin: 04/02/18 09:45 Dose: 40 mg - Labs Labs: 04/01/18 05:59 04/01/18 05:59 PT 13.6 SECONDS (9.7-12.2) H 03/20/18 07:25 INR 1.2 03/20/18 07:25 APTT 32 SECONDS (21-34) D 03/20/18 07:25 - Constitutional Appears: Cachectic, Chronically Ill - Head Exam Head Exam: NORMAL INSPECTION - Eye Exam Eye Exam: Normal appearance Pupil Exam: NORMAL ACCOMODATION - ENT Exam ENT Exam: Normal Exam - Neck Exam Neck Exam: Normal Inspection - Respiratory Exam Respiratory Exam: Rhonchi - Cardiovascular Exam Cardiovascular Exam: REGULAR RHYTHM, Murmur - GI/Abdominal Exam GI & Abdominal Exam: Normal Bowel Sounds - Rectal Exam Rectal Exam: Deferred - Exam Exam: NORMAL INSPECTION - Extremities Exam Extremities Exam: Normal Inspection - Back Exam Back Exam: NORMAL INSPECTION - Neurological Exam Neurological Exam: Alert, Awake, Oriented x3 - Psychiatric Exam Psychiatric exam: Anxious - Skin Skin Exam: Dry, Intact, Warm Assessment and Plan (1) Lower GI bleeding Status: Resolved (2) Anemia Status: Acute (3) Pneumonia Assessment & Plan: On IV Rocephin Status: Acute (4) Hyperkalemia Status: Resolved (5) Hyponatremia Status: Resolved (6) Acute diastolic (congestive) heart failure Status: Resolved (7) Acute bacterial endocarditis Assessment & Plan: On IV Ancef. Status: Acute (8) Acute non-ST elevation myocardial infarction (NSTEMI) Assessment & Plan: Stable. Status: Acute (9) Bilateral pleural effusion Assessment & Plan: Bilateral chest tubes still draining significant amount of fluid. Status: Acute
[2018-04-03] MEDS: Albuterol-Ipratrop 3 mg / 0.5 (3 ml) UD INH SCH ×3 (01:30→21:27)
[2018-04-03] MEDS: cefTRIAXone 2 GM in Sodium Chloride 0.9% 100 ML IVPB SCH ×2 (09:50→21:07)
[2018-04-03] MEDS: Pantoprazole 40 mg EC Tab PO SCH (09:51)
--- NOTE | 2018-04-03 11:46 | RAD ---
Date of service: 04/03/2018 HISTORY: bilateral chest tubes COMPARISON: 04/02/2018 FINDINGS: LUNGS: No interval consolidation. Interstitial lung marking similarly minimally increased and similarly patchy distribution. Nonspecific. PLEURA: No significant pleural effusion identified,. Interval small right apical pneumothorax suggested on the current study CARDIOVASCULAR: Cardiomegaly-similar. Minimal pulmonary venous congestion-similar OSSEOUS STRUCTURES: No fracture appreciated. Bilateral shoulder arthrosis. VISUALIZED UPPER ABDOMEN: Normal. OTHER FINDINGS: Ovary each costophrenic angle are bilateral pleural drainage catheters -unchanged in appearance. IMPRESSION: Interval small right apical pneumothorax -findings were called up to the nurse James who is taking care of this patient at 11:39 a.m. on 04/03/2018 Other findings as above.
--- NOTE | 2018-04-03 17:50 | CP.PCM.PN ---
Subjective - Date & Time of Evaluation Date of Evaluation: 04/03/18 Time of Evaluation: 10:00 - Subjective Subjective: afeb chest tubes in place Objective - Vital Signs/Intake and Output Vital Signs (last 24 hours): Temp Pulse Resp BP Pulse Ox 98.7 F 103 H 18 118/40 L 98 04/03/18 16:00 04/03/18 16:00 04/03/18 16:00 04/03/18 16:00 04/03/18 16:00 Intake and Output: 04/03/18 04/03/18 06:59 18:59 Intake Total 500 Output Total 400 Balance 100 - Medications Medications: Current Medications Acetaminophen (Tylenol 325mg Tab) 650 mg PO Q4 PRN PRN Reason: Pain, Mild (1-3) Last Admin: 03/30/18 10:26 Dose: 650 mg Albuterol/Ipratropium (Duoneb 3 Mg/0.5 Mg (3 Ml) Ud) 3 ml INH RQ6 ANIYAH Ferrous Sulfate (Feosol) 325 mg PO TID [facility] Last Admin: 04/03/18 17:45 Dose: 325 mg Furosemide (Lasix) 20 mg PO DAILY [facility] Last Admin: 04/01/18 09:11 Dose: 20 mg Ceftriaxone Sodium 2 gm/ (Sodium Chloride) 100 mls @ 100 mls/hr IVPB Q12H ANIYAH PRN Reason: Protocol Last Admin: 04/03/18 09:50 Dose: 100 mls/hr Lidocaine (Lidoderm) 2 ea TD Q24H PRN PRN Reason: PAIN -- SEE DOSE INSTRUCTIONS Ondansetron HCl (Zofran Inj) 4 mg IVP Q6H PRN PRN Reason: Nausea/Vomiting Last Admin: 03/30/18 21:27 Dose: 4 mg Pantoprazole Sodium (Protonix Ec Tab) 40 mg PO DAILY [facility] Last Admin: 04/03/18 09:51 Dose: 40 mg - Labs Labs: 04/01/18 05:59 04/01/18 05:59 PT 13.6 SECONDS (9.7-12.2) H 03/20/18 07:25 INR 1.2 03/20/18 07:25 APTT 32 SECONDS (21-34) D 03/20/18 07:25 - Constitutional Appears: Non-toxic, Cachectic, Chronically Ill - Head Exam Head Exam: NORMOCEPHALIC - Eye Exam Eye Exam: PERRL - ENT Exam ENT Exam: Mucous Membranes Dry - Neck Exam Neck Exam: absent: Lymphadenopathy - Respiratory Exam Respiratory Exam: Decreased Breath Sounds - Cardiovascular Exam Cardiovascular Exam: REGULAR RHYTHM, Murmur - GI/Abdominal Exam GI & Abdominal Exam: Distended, Soft Assessment and Plan (1) Anemia Status: Acute (2) Pneumonia Status: Acute (3) Lower GI bleeding Status: Resolved (4) Mass in rectum Status: Acute (5) Rectal adenocarcinoma Status: Acute (6) Endocarditis Status: Acute - Assessment and Plan (Free Text) Assessment: cont rx endocarditis
[2018-04-04] MEDS: Albuterol-Ipratrop 3 mg / 0.5 (3 ml) UD INH SCH ×3 (01:10→19:52)
--- NOTE | 2018-04-04 08:56 | RAD ---
Chest x-ray single frontal view History: Pneumothorax. Comparison: 04/03/2018 Findings: Persistent small right apical pneumothorax. Bilateral pleural drain/chest tubes in place at the costophrenic angles. Diffuse increased interstitial lung markings. Scattered nodular densities in both lung simpson. Tortuous aorta with calcification at the aortic knob. Degenerative changes in the spine and shoulders. Impression: Persistent small right apical pneumothorax. Bilateral pleural drain/chest tubes in place at the costophrenic angles. Diffuse increased interstitial lung markings. Scattered nodular densities in both lung simpson. Tortuous aorta with calcification at the aortic knob.
[2018-04-04] MEDS: cefTRIAXone 2 GM in Sodium Chloride 0.9% 100 ML IVPB SCH ×2 (09:00→21:12)
[2018-04-04] MEDS: Pantoprazole 40 mg EC Tab PO SCH (09:12)
--- NOTE | 2018-04-04 11:05 | CARD ---
APPROVED REPORT Date of service: 04/03/2018 EKG Measurement Heart [id number] <Conclusion> Poor data quality, interpretation may be adversely affected Sinus tachycardia Left ventricular hypertrophy with repolarization abnormality Prolonged QT Abnormal ECG
--- NOTE | 2018-04-04 17:16 | CP.PCM.PN ---
Subjective - Date & Time of Evaluation Date of Evaluation: 04/04/18 Time of Evaluation: 09:00 - Subjective Subjective: awake alert chest tubes in place afeb nad Objective - Vital Signs/Intake and Output Vital Signs (last 24 hours): Temp Pulse Resp BP Pulse Ox 98.3 F 104 H 20 128/53 L 98 04/04/18 15:50 04/04/18 15:55 04/04/18 15:50 04/04/18 15:50 04/04/18 15:50 Intake and Output: 04/04/18 04/04/18 06:59 18:59 Intake Total 250 Output Total 740 250 Balance -490 -250 - Medications Medications: Current Medications Acetaminophen (Tylenol 325mg Tab) 650 mg PO Q4 PRN PRN Reason: Pain, Mild (1-3) Last Admin: 03/30/18 10:26 Dose: 650 mg Albuterol/Ipratropium (Duoneb 3 Mg/0.5 Mg (3 Ml) Ud) 3 ml INH RQ6 [facility] Last Admin: 04/04/18 08:05 Dose: 3 ml Ferrous Sulfate (Feosol) 325 mg PO TID [facility] Last Admin: 04/04/18 14:16 Dose: 325 mg Furosemide (Lasix) 20 mg PO DAILY [facility] Last Admin: 04/01/18 09:11 Dose: 20 mg Ceftriaxone Sodium 2 gm/ (Sodium Chloride) 100 mls @ 100 mls/hr IVPB Q12H [facility] PRN Reason: Protocol Last Admin: 04/04/18 09:00 Dose: 100 mls/hr Lidocaine (Lidoderm) 2 ea TD Q24H PRN PRN Reason: PAIN -- SEE DOSE INSTRUCTIONS Ondansetron HCl (Zofran Inj) 4 mg IVP Q6H PRN PRN Reason: Nausea/Vomiting Last Admin: 03/30/18 21:27 Dose: 4 mg Pantoprazole Sodium (Protonix Ec Tab) 40 mg PO DAILY [facility] Last Admin: 04/04/18 09:12 Dose: 40 mg - Labs Labs: 04/01/18 05:59 04/01/18 05:59 PT 13.6 SECONDS (9.7-12.2) H 03/20/18 07:25 INR 1.2 03/20/18 07:25 APTT 32 SECONDS (21-34) D 03/20/18 07:25 - Constitutional Appears: Non-toxic, Chronically Ill - Head Exam Head Exam: NORMOCEPHALIC - Eye Exam Eye Exam: PERRL - ENT Exam ENT Exam: Mucous Membranes Dry - Neck Exam Neck Exam: absent: Lymphadenopathy - Respiratory Exam Respiratory Exam: Decreased Breath Sounds - Cardiovascular Exam Cardiovascular Exam: REGULAR RHYTHM - GI/Abdominal Exam GI & Abdominal Exam: Distended, Soft - Rectal Exam Rectal Exam: Deferred - Exam Exam: NORMAL INSPECTION - Extremities Exam Extremities Exam: absent: Pedal Edema - Back Exam Back Exam: absent: CVA tenderness (L), CVA tenderness (R) - Neurological Exam Neurological Exam: Alert, Awake, Oriented x3 - Psychiatric Exam Psychiatric exam: Depressed - Skin Skin Exam: Dry Assessment and Plan (1) Anemia Status: Acute (2) Pneumonia Status: Acute (3) Lower GI bleeding Status: Resolved (4) Mass in rectum Status: Acute (5) Rectal adenocarcinoma Status: Acute (6) Endocarditis Status: Acute - Assessment and Plan (Free Text) Assessment: will renew iv rx cont same for 6 weeks
--- NOTE | 2018-04-04 23:12 | CP.PCM.PN ---
Subjective - Date & Time of Evaluation Date of Evaluation: 04/04/18 Time of Evaluation: 12:30 - Subjective Subjective: Patient much less SOB. Feels better. Both chest tubes still draining more than 100 ml in 24 hours. Afebrile. No rectal bleeding so far.. No chest pain. Objective - Vital Signs/Intake and Output Vital Signs (last 24 hours): Temp Pulse Resp BP Pulse Ox 98.3 F 104 H 20 128/53 L 98 04/04/18 15:50 04/04/18 15:55 04/04/18 15:50 04/04/18 15:50 04/04/18 15:50 Intake and Output: 04/04/18 04/05/18 18:59 06:59 Intake Total 580 Output Total 250 400 Balance -250 180 - Medications Medications: Current Medications Acetaminophen (Tylenol 325mg Tab) 650 mg PO Q4 PRN PRN Reason: Pain, Mild (1-3) Last Admin: 03/30/18 10:26 Dose: 650 mg Albuterol/Ipratropium (Duoneb 3 Mg/0.5 Mg (3 Ml) Ud) 3 ml INH RQ6 [facility] Last Admin: 04/04/18 19:52 Dose: 3 ml Ferrous Sulfate (Feosol) 325 mg PO TID [facility] Last Admin: 04/04/18 17:39 Dose: 325 mg Furosemide (Lasix) 20 mg PO DAILY [facility] Last Admin: 04/01/18 09:11 Dose: 20 mg Ceftriaxone Sodium 2 gm/ (Sodium Chloride) 100 mls @ 100 mls/hr IVPB Q12H [facility] PRN Reason: Protocol Last Admin: 04/04/18 21:12 Dose: 100 mls/hr Lidocaine (Lidoderm) 2 ea TD Q24H PRN PRN Reason: PAIN -- SEE DOSE INSTRUCTIONS Ondansetron HCl (Zofran Inj) 4 mg IVP Q6H PRN PRN Reason: Nausea/Vomiting Last Admin: 03/30/18 21:27 Dose: 4 mg Pantoprazole Sodium (Protonix Ec Tab) 40 mg PO DAILY [facility] Last Admin: 04/04/18 09:12 Dose: 40 mg - Labs Labs: 04/01/18 05:59 04/01/18 05:59 PT 13.6 SECONDS (9.7-12.2) H 03/20/18 07:25 INR 1.2 03/20/18 07:25 APTT 32 SECONDS (21-34) D 03/20/18 07:25 - Constitutional Appears: No Acute Distress, Chronically Ill - Head Exam Head Exam: NORMAL INSPECTION - Eye Exam Eye Exam: Normal appearance Pupil Exam: NORMAL ACCOMODATION - ENT Exam ENT Exam: Normal Exam - Neck Exam Neck Exam: Normal Inspection - Respiratory Exam Respiratory Exam: Rhonchi - Cardiovascular Exam Cardiovascular Exam: REGULAR RHYTHM, Murmur - GI/Abdominal Exam GI & Abdominal Exam: Soft, Normal Bowel Sounds - Rectal Exam Rectal Exam: Deferred - Exam Exam: NORMAL INSPECTION - Extremities Exam Extremities Exam: Normal Inspection - Back Exam Back Exam: NORMAL INSPECTION - Neurological Exam Neurological Exam: Alert, Awake, Oriented x3 - Psychiatric Exam Psychiatric exam: Anxious - Skin Skin Exam: Dry, Intact Assessment and Plan (1) Lower GI bleeding Status: Resolved (2) Anemia Status: Acute (3) Pneumonia Assessment & Plan: On IV antibiotics. Status: Acute (4) Hyperkalemia Status: Resolved (5) Hyponatremia Status: Resolved (6) Acute diastolic (congestive) heart failure Status: Resolved (7) Acute bacterial endocarditis Assessment & Plan: On IV antibiotics. АЛЕКСАНДР next week, when the patient's more stable. Status: Acute (8) Acute non-ST elevation myocardial infarction (NSTEMI) Status: Acute (9) Bilateral pleural effusion Assessment & Plan: Pigtails still draining. Status: Acute
[2018-04-05] MEDS: Albuterol-Ipratrop 3 mg / 0.5 (3 ml) UD INH SCH ×4 (01:27→19:34)
[2018-04-05] MEDS: cefTRIAXone 2 GM in Sodium Chloride 0.9% 100 ML IVPB SCH (09:45)
[2018-04-05] MEDS: Pantoprazole 40 mg EC Tab PO SCH (09:45)
[2018-04-05] MEDS: Lidocaine 5% Patch TD PRN (13:16)
--- NOTE | 2018-04-05 18:05 | CP.PCM.PN ---
Subjective - Date & Time of Evaluation Date of Evaluation: 04/05/18 Time of Evaluation: 18:03 - Subjective Subjective: Patient has no SOB. Bilateral chest still draining a lot of fluid. To repeat CXR in AM and reconsult Dr Michel( thoracic). Objective - Vital Signs/Intake and Output Vital Signs (last 24 hours): Temp Pulse Resp BP Pulse Ox 98.0 F 99 H 20 113/40 L 100 04/05/18 15:00 04/05/18 16:00 04/05/18 15:00 04/05/18 15:00 04/05/18 15:00 Intake and Output: 04/05/18 04/05/18 06:59 18:59 Intake Total 580 500 Output Total 500 1605 Balance 80 -1105 - Medications Medications: Current Medications Acetaminophen (Tylenol 325mg Tab) 650 mg PO Q4 PRN PRN Reason: Pain, Mild (1-3) Last Admin: 03/30/18 10:26 Dose: 650 mg Albuterol/Ipratropium (Duoneb 3 Mg/0.5 Mg (3 Ml) Ud) 3 ml INH RQ6 [facility] Last Admin: 04/05/18 13:40 Dose: 3 ml Ferrous Sulfate (Feosol) 325 mg PO TID [facility] Last Admin: 04/05/18 17:41 Dose: 325 mg Furosemide (Lasix) 20 mg PO DAILY [facility] Last Admin: 04/01/18 09:11 Dose: 20 mg Ceftriaxone Sodium 2 gm/ (Sodium Chloride) 100 mls @ 100 mls/hr IVPB DAILY [facility] PRN Reason: Protocol Lidocaine (Lidoderm) 2 ea TD Q24H PRN PRN Reason: PAIN -- SEE DOSE INSTRUCTIONS Last Admin: 04/05/18 13:16 Dose: 2 ea Ondansetron HCl (Zofran Inj) 4 mg IVP Q6H PRN PRN Reason: Nausea/Vomiting Last Admin: 03/30/18 21:27 Dose: 4 mg Pantoprazole Sodium (Protonix Ec Tab) 40 mg PO DAILY [facility] Last Admin: 04/05/18 09:45 Dose: 40 mg - Labs Labs: 04/01/18 05:59 04/01/18 05:59 PT 13.6 SECONDS (9.7-12.2) H 03/20/18 07:25 INR 1.2 03/20/18 07:25 APTT 32 SECONDS (21-34) D 03/20/18 07:25 - Constitutional Appears: No Acute Distress, Cachectic, Chronically Ill - Head Exam Head Exam: NORMAL INSPECTION - Eye Exam Eye Exam: Normal appearance - ENT Exam ENT Exam: Normal Exam - Neck Exam Neck Exam: Normal Inspection - Respiratory Exam Respiratory Exam: Rhonchi Additional comments: Rhonchi bilaterally. - Cardiovascular Exam Cardiovascular Exam: REGULAR RHYTHM, Murmur - GI/Abdominal Exam GI & Abdominal Exam: Soft, Normal Bowel Sounds - Rectal Exam Rectal Exam: Deferred - Exam Exam: NORMAL INSPECTION - Extremities Exam Extremities Exam: Normal Inspection - Back Exam Back Exam: NORMAL INSPECTION - Neurological Exam Neurological Exam: Alert, Awake, Oriented x3 - Psychiatric Exam Psychiatric exam: Anxious - Skin Skin Exam: Dry, Intact, Normal Color, Warm Assessment and Plan (1) Lower GI bleeding Status: Resolved (2) Anemia Status: Acute (3) Pneumonia Assessment & Plan: On Rocephin IV Status: Acute (4) Hyperkalemia Status: Resolved (5) Hyponatremia Status: Resolved (6) Acute diastolic (congestive) heart failure Status: Resolved (7) Acute bacterial endocarditis Assessment & Plan: Rocephin IV Status: Acute (8) Acute non-ST elevation myocardial infarction (NSTEMI) Status: Acute (9) Bilateral pleural effusion Assessment & Plan: Chest tube still draining a fair amount of fluid. Will repeat chest XRay. Status: Acute
[2018-04-06] MEDS: Albuterol-Ipratrop 3 mg / 0.5 (3 ml) UD INH SCH ×4 (01:19→20:20)
[2018-04-06 08:17] LABS: BASO % 0.4 % (0.0-2.0); EOS % 0.1 % (0.0-4.0); HEMOGLOBIN 10.8 g/dL (12.0-18.0); LYMPH # 0.7 K/uL (1.0-4.3); LYMPH % 7.7 % (20.0-40.0); MEAN CELL VOLUME 85.7 fL (80.0-94.0); MEAN CORPUSCULAR HGB CONC 33.8 g/dL (33.0-37.0); MEAN PLATELET VOLUME 8.9 fL (7.2-11.7); MONO # 0.4 K/uL (0.0-0.8); MONO % 3.8 % (0.0-10.0); NEUT # 8.4 K/uL (1.8-7.0); PLATELET COUNT 165 K/uL (130-400); RBC 3.74 Mil/uL (4.40-5.90); RED CELL DISTRIBUTION WIDTH 19.2 % (11.5-14.5); WHITE BLOOD COUNT 9.6 K/uL (4.8-10.8)
[2018-04-06 08:43] LABS: ALB/GLOB RATIO 0.8 (1.0-2.1); ALBUMIN 2.9 g/dL (3.5-5.0); ALT/SGPT 28 U/L (21-72); AST/SGOT 32 U/L (17-59); BLOOD UREA NITROGEN 46 mg/dL (9-20); CALCIUM 8.6 mg/dl (8.6-10.4); GFR NON-AFRICAN AMERICAN > 60
[2018-04-06] MEDS ORDERED: Sod Polystyrene Sulf 15 gm/60 ml Susp PO ONE (09:15)
[2018-04-06] MEDS: Pantoprazole 40 mg EC Tab PO SCH (09:26)
--- NOTE | 2018-04-06 09:36 | CP.PCM.PCO ---
Physician Communication Note - Physician Communication Note Physician Communication Note: given high output, recommend repeat CT chest w/ IV contrast - d/w Dr Michel
[2018-04-06] MEDS: cefTRIAXone 2 GM in Sodium Chloride 0.9% 100 ML IVPB SCH (09:44)
[2018-04-06 10:39] LABS: BANDS 1 % (0-2); LYMPHOCYTE 5 % (20-40); MONOCYTE 4 % (0-10); NEUTROPHIL 90 % (50-75); PLATELET ESTIMATE NORMAL (NORMAL); TOTAL CELLS COUNTED 100
[2018-04-06 10:40] LABS: ANISOCYTOSIS MODERATE; HYPOCHROMIC SLIGHT; POIKILOCYTOSIS SLIGHT
[2018-04-06 10:41] LABS: POLYCHROMIC SLIGHT; TOXIC GRANULATION PRESENT
[2018-04-06 10:42] LABS: OVALOCYTES SLIGHT; PLATELET CLUMPS PRESENT
[2018-04-06] MEDS: Lidocaine 5% Patch TD PRN (13:54)
[2018-04-06] MEDS ORDERED: Iodixanol 320 MG/ML 200 ML BOTTLE IV ONE (14:01)
--- NOTE | 2018-04-06 15:14 | RAD ---
Chest x-ray single frontal view History: Pneumothorax. Comparison: None available. Findings: Bilateral pleural drains in place. Moderate venous congestion. Patchy bibasilar airspace opacities. Mild linear atelectasis at the left lung base. No discrete pneumothorax identified. Calcification at the aortic knob. Top normal heart size. Right hilar prominence. Degenerative changes in spine and shoulders. Impression: Bilateral pleural drains in place. Moderate venous congestion. Patchy bibasilar airspace opacities. Mild linear atelectasis at the left lung base. No discrete pneumothorax identified. Calcification at the aortic knob. Top normal heart size. Right hilar prominence.
--- NOTE | 2018-04-06 15:26 | CP.PCM.PN ---
Subjective - Date & Time of Evaluation Date of Evaluation: 04/06/18 Time of Evaluation: 10:00 - Subjective Subjective: events noted iv rx renewed Objective - Vital Signs/Intake and Output Vital Signs (last 24 hours): Temp Pulse Resp BP Pulse Ox 97.4 F L 96 H 20 116/50 L 96 04/06/18 09:21 04/06/18 12:00 04/06/18 09:21 04/06/18 09:21 04/06/18 09:21 Intake and Output: 04/06/18 04/06/18 06:59 18:59 Intake Total 360 400 Output Total 805 50 Balance -445 350 - Medications Medications: Current Medications Acetaminophen (Tylenol 325mg Tab) 650 mg PO Q4 PRN PRN Reason: Pain, Mild (1-3) Last Admin: 03/30/18 10:26 Dose: 650 mg Albuterol/Ipratropium (Duoneb 3 Mg/0.5 Mg (3 Ml) Ud) 3 ml INH RQ6 [facility] Last Admin: 04/06/18 14:37 Dose: Not Given Ferrous Sulfate (Feosol) 325 mg PO TID [facility] Last Admin: 04/06/18 13:54 Dose: 325 mg Furosemide (Lasix) 20 mg PO DAILY [facility] Last Admin: 04/01/18 09:11 Dose: 20 mg Ceftriaxone Sodium 2 gm/ (Sodium Chloride) 100 mls @ 100 mls/hr IVPB DAILY [facility] PRN Reason: Protocol Last Admin: 04/06/18 09:44 Dose: 100 mls/hr Lidocaine (Lidoderm) 2 ea TD Q24H PRN PRN Reason: PAIN -- SEE DOSE INSTRUCTIONS Last Admin: 04/06/18 13:54 Dose: 2 ea Ondansetron HCl (Zofran Inj) 4 mg IVP Q6H PRN PRN Reason: Nausea/Vomiting Last Admin: 03/30/18 21:27 Dose: 4 mg Pantoprazole Sodium (Protonix Ec Tab) 40 mg PO DAILY [facility] Last Admin: 04/06/18 09:26 Dose: 40 mg - Labs Labs: 04/06/18 08:05 04/06/18 08:05 PT 13.6 SECONDS (9.7-12.2) H 03/20/18 07:25 INR 1.2 03/20/18 07:25 APTT 32 SECONDS (21-34) D 03/20/18 07:25 - Constitutional Appears: Non-toxic - Head Exam Head Exam: NORMOCEPHALIC - Eye Exam Eye Exam: PERRL - ENT Exam ENT Exam: Mucous Membranes Dry - Neck Exam Neck Exam: absent: Lymphadenopathy - Respiratory Exam Respiratory Exam: Decreased Breath Sounds - Cardiovascular Exam Cardiovascular Exam: REGULAR RHYTHM - GI/Abdominal Exam GI & Abdominal Exam: Distended Assessment and Plan (1) Anemia Status: Acute (2) Pneumonia Status: Acute (3) Lower GI bleeding Status: Resolved (4) Mass in rectum Status: Acute (5) Rectal adenocarcinoma Status: Acute (6) Endocarditis Status: Acute
--- NOTE | 2018-04-06 15:59 | CT ---
CT chest History: Bilateral chest tubes. Pneumothorax. Comparison: X-ray dated 04/06/2018 Technique: Multiple contiguous axial images were performed through the chest with the use of intravenous contrast. Subsequently, sagittal and coronal reformatted images were obtained. This CT exam was performed using one or more of the following dose reduction techniques: Automated exposure control, adjustment of the mA and/or kV according to patient size, and/or use of iterative reconstruction technique. Findings: Right lung: Right basilar chest tube in place. Trace right basilar pneumothorax. Diffuse emphysematous changes. Small right pleural effusion. Right basilar consolidative changes. Apical pleural thickening. 3 millimeter pulmonary nodule within the right upper lobe on series 3, image 23. 1.7 x 1.6 centimeter focal area of nodular consolidation within the posterior aspect of the right upper lobe on series 3, image 33. 4 millimeter pulmonary nodule within the right upper lobe on series 3, image 52. 3 millimeter nodule within the right middle lobe on series 3, image 75. Left lung: Left basilar chest tube in place. Apical pleural thickening. 2 millimeter nodule within the left upper lobe on series 3, image 16. 5 millimeter ground-glass nodule within the posterior aspect of the left upper lobe on series 3, image 23. 7 millimeter nodule within the left upper lobe on series 3, image 31. 4 millimeter nodule within the left upper lobe inferiorly on series 3, image 56. Dense basilar consolidation. Trace left pleural effusion. Trachea central airways are patent. No significant axillary adenopathy. Calcification and plaque within the aorta. 1.1 centimeter precarinal lymph node. Coronary calcifications. No pericardial effusion. Prominent liver with a somewhat nodular and cirrhotic contour. Scattered sub centimeter hepatic hypodensities seen throughout the liver, nonspecific. Distended gallbladder with calculi and or sludge. Multiple prominent splenic hypodensities seen throughout the spleen, indeterminate. Clinical correlation. Correlation with multiphasic CT of the abdomen and pelvis may be helpful if clinically indicated. Degenerative changes in the spine. Impression: Tiny right basilar pneumothorax. Small bilateral pleural effusions with adjacent basilar consolidation and atelectasis. Small bilateral pulmonary nodules. Diffuse scattered focal areas of nodular consolidation in both lungs as described above. Multiple prominent areas of low attenuation seen within the spleen of uncertain clinical etiology. Focal areas of splenic infarction and or splenic neoplasm and or additional etiology not excluded. Correlation with multiphasic CT of the abdomen and pelvis would be helpful for further evaluation if clinically indicated. Distended gallbladder with calculi and sludge noted. Few scattered sub centimeter hypoattenuated foci in the liver, too small to adequately characterize.
[2018-04-07] MEDS: Albuterol-Ipratrop 3 mg / 0.5 (3 ml) UD INH SCH ×4 (03:12→19:30)
--- NOTE | 2018-04-07 09:04 | CP.PCM.CON ---
History of Present Illness - History of Present Illness History of Present Illness: HPI: Patient is a 67 yo male with pmhx of adenocarcinoma of rectum, BPH, HTN, hypercholesterolemia, gout, that was admitted to the hospital for rectal bleeding. on serial chest xrays patient was found to have persistent bilateral pleural effusions. Patient underwent thoracentesis on 03/21/2018 and 1.5 L of fluid was removed from right side. Patient underwent left sided thoracentesis on 03/25/2018, and 860ml of fluid removed. Recent CT scan on 03/25/2018 shows increased bilateral pleural effusion. IR placed bilatera chest tubes. Patient is in no acute distress, feeling weak but with no other complains. Has had slight increase in creatunine and new hyponatremia. PMhx: Adenocarcinoma Rectum, HTN, HLD, BPH, Anemia, Left eye blindness PSH: hernia repair Allergies: aspirin SH: Former smoker, no alcohol or illicit drug use. Lives with family. FH: no known family Hx. Denies family hx of cancer. Review of Systems - Constitutional Constitutional: Fatigue, Lethargy, Weight Loss - EENT Eyes: As Per HPI, Blurred Vision Ears: absent: As Per HPI, Decreased Hearing, Ear Discharge, Ear Pain, Tinnitus, Abnormal Hearing, Disequilibrium, Dizziness, Other Nose/Mouth/Throat: absent: As Per HPI, Epistaxis, Nasal Congestion, Nasal Discharge, Nasal Obstruction, Nasal Trauma, Nose Pain, Post Nasal Drip, Sinus Pain, Sinus Pressure, Bleeding Gums, Change in Voice, Dental Pain, Dry Mouth, Dysphagia, Halitosis, Hoarsness, Lip Swelling, Mouth Lesions, Mouth Pain, Odynophagia, Sore Throat, Throat Swelling, Tongue Swelling, Facial Pain, Neck Pain, Neck Mass, Other - Cardiovascular Cardiovascular: Dyspnea on Exertion - Respiratory Respiratory: Cough, Dyspnea on Exertion - Gastrointestinal Gastrointestinal: As Per HPI - Genitourinary Genitourinary: absent: As Per HPI, Change in Urinary Stream, Difficulty Urinating, Dysuria, Flank Pain, Hematuria, Pyuria, Nocturia, Urinary Incontinence, Urinary Frequency, Urinary Hesitance, Urinary Urgency, Voiding Freq/Small Amts, Freq UTI, Hx Renal/Bladder Calculi, Hx /Renal Surgery, Bladder Distension, Other - Musculoskeletal Musculoskeletal: Muscle Cramps, Muscle Weakness, Myalgias - Neurological Neurological: Weakness Past Patient History - Tetanus Immunizations Tetanus Immunization: Unknown - Past Medical History & Family History Past Medical History?: Yes Past Family History: Reviewed and not pertinent - Past Social History Smoking Status: Former Smoker Chewing Tobacco Use: No Cigar Use: No Alcohol: None Drugs: Denies Home Situation {Lives}: With Family Domestic Violence: Negative - CARDIAC Hx Hypercholesterolemia: Yes Hx Hypertension: Yes - PULMONARY Hx Respiratory Disorders: No - NEUROLOGICAL Hx Neurological Disorder: No - HEENT Hx HEENT Problems: Yes Hx Blind: Yes (left eye) Other/Comment: 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 - GENITOURINARY/GYNECOLOGICAL Hx Genitourinary Disorders: No - PSYCHIATRIC Hx Substance Use: No - SURGICAL HISTORY Hx Surgeries: Yes Hx Herniorrhaphy: Yes (left) - ANESTHESIA Hx Anesthesia: Yes Hx Anesthesia Reactions: No Meds Allergies/Adverse Reactions: Allergies Allergy/AdvReac Type Severity Reaction Status Date / Time aspirin Allergy Verified 03/18/18 16:47 - Medications Medications: Current Medications Acetaminophen (Tylenol 325mg Tab) 650 mg PO Q4 PRN PRN Reason: Pain, Mild (1-3) Last Admin: 04/07/18 04:36 Dose: 650 mg Albuterol/Ipratropium (Duoneb 3 Mg/0.5 Mg (3 Ml) Ud) 3 ml INH RQ6 [facility] Last Admin: 04/07/18 07:52 Dose: 3 ml Ferrous Sulfate (Feosol) 325 mg PO TID [facility] Last Admin: 04/06/18 17:58 Dose: 325 mg Furosemide (Lasix) 20 mg PO DAILY [facility] Last Admin: 04/01/18 09:11 Dose: 20 mg Ceftriaxone Sodium 2 gm/ (Sodium Chloride) 100 mls @ 100 mls/hr IVPB DAILY [facility] PRN Reason: Protocol Last Admin: 04/06/18 09:44 Dose: 100 mls/hr Lidocaine (Lidoderm) 2 ea TD Q24H PRN PRN Reason: PAIN -- SEE DOSE INSTRUCTIONS Last Admin: 04/06/18 13:54 Dose: 2 ea Ondansetron HCl (Zofran Inj) 4 mg IVP Q6H PRN PRN Reason: Nausea/Vomiting Last Admin: 03/30/18 21:27 Dose: 4 mg Pantoprazole Sodium (Protonix Ec Tab) 40 mg PO DAILY [facility] Last Admin: 04/06/18 09:26 Dose: 40 mg Physical Exam - Constitutional Appears: Cachectic, Chronically Ill - Head Exam Head Exam: ATRAUMATIC - Eye Exam Eye Exam: EOMI, Periorbital tenderness - Neck Exam Neck exam: Positive for: Normal Inspection. Negative for: Tenderness - Respiratory Exam Respiratory Exam: Decreased Breath Sounds, Rhonchi - Cardiovascular Exam Cardiovascular Exam: Tachycardia, +S1 - GI/Abdominal Exam GI & Abdominal Exam: Soft. absent: Tenderness - Extremities Exam Extremities exam: Positive for: normal inspection. Negative for: tenderness - Neurological Exam Neurological exam: Altered, CN II-XII Intact - Skin Skin Exam: Dry, Warm Results - Vital Signs Recent Vital Signs: Last Vital Signs Temp 97.9 F 04/07/18 07:00 Pulse 94 H 04/07/18 07:00 Resp 18 04/07/18 07:00 BP 105/46 L 04/07/18 07:00 Pulse Ox 99 04/07/18 07:00 - Labs Result Diagrams: 04/06/18 08:05 04/06/18 08:05 Labs: Laboratory Results - last 24 hr 04/06/18 08:05 Neutrophils % (Manual) 90 H Band Neutrophils % 1 Lymphocytes % (Manual) 5 L Monocytes % (Manual) 4 Toxic Granulation Present Platelet Estimate Normal Plt Clumps, EDTA Present Polychromasia Slight Hypochromasia (manual) Slight Poikilocytosis (manual Slight Anisocytosis (manual) Moderate Ovalocytes Slight Assessment & Plan (1) Rectal cancer Status: Acute (2) Pleural effusion Status: Acute (3) Hyponatremia Status: Acute (4) Acute non-ST elevation myocardial infarction (NSTEMI) Status: Acute (5) Rectal adenocarcinoma Status: Acute - Assessment and Plan (Free Text) Plan: evaluate for SIADH follow up chemistries
[2018-04-07] MEDS: cefTRIAXone 2 GM in Sodium Chloride 0.9% 100 ML IVPB SCH (10:21)
[2018-04-07] MEDS: Pantoprazole 40 mg EC Tab PO SCH (10:22)
[2018-04-07] MEDS: Lidocaine 5% Patch TD PRN (10:22)
--- NOTE | 2018-04-07 12:23 | CP.PCM.PN ---
Subjective - Date & Time of Evaluation Date of Evaluation: 04/07/18 Time of Evaluation: 09:00 - Subjective Subjective: awake alert nad afeb chest tubes in place Objective - Vital Signs/Intake and Output Vital Signs (last 24 hours): Temp Pulse Resp BP Pulse Ox 97.9 F 99 H 18 105/46 L 99 04/07/18 07:00 04/07/18 07:55 04/07/18 07:00 04/07/18 07:00 04/07/18 07:00 Intake and Output: 04/07/18 04/07/18 06:59 18:59 Intake Total 600 Output Total 735 Balance -135 - Medications Medications: Current Medications Acetaminophen (Tylenol 325mg Tab) 650 mg PO Q4 PRN PRN Reason: Pain, Mild (1-3) Last Admin: 04/07/18 04:36 Dose: 650 mg Albuterol/Ipratropium (Duoneb 3 Mg/0.5 Mg (3 Ml) Ud) 3 ml INH RQ6 ANIYAH Last Admin: 04/07/18 07:52 Dose: 3 ml Ferrous Sulfate (Feosol) 325 mg PO TID ANIYAH Last Admin: 04/07/18 10:22 Dose: 325 mg Furosemide (Lasix) 20 mg PO DAILY [facility] Last Admin: 04/01/18 09:11 Dose: 20 mg Ceftriaxone Sodium 2 gm/ (Sodium Chloride) 100 mls @ 100 mls/hr IVPB DAILY ANIYAH PRN Reason: Protocol Last Admin: 04/07/18 10:21 Dose: 100 mls/hr Lidocaine (Lidoderm) 2 ea TD Q24H PRN PRN Reason: PAIN -- SEE DOSE INSTRUCTIONS Last Admin: 04/07/18 10:22 Dose: 2 ea Ondansetron HCl (Zofran Inj) 4 mg IVP Q6H PRN PRN Reason: Nausea/Vomiting Last Admin: 03/30/18 21:27 Dose: 4 mg Pantoprazole Sodium (Protonix Ec Tab) 40 mg PO DAILY ANIYAH Last Admin: 04/07/18 10:22 Dose: 40 mg - Labs Labs: 04/06/18 08:05 04/06/18 08:05 PT 13.6 SECONDS (9.7-12.2) H 03/20/18 07:25 INR 1.2 03/20/18 07:25 APTT 32 SECONDS (21-34) D 03/20/18 07:25 - Constitutional Appears: Non-toxic, Cachectic, Chronically Ill - Head Exam Head Exam: NORMOCEPHALIC - Eye Exam Eye Exam: absent: Normal appearance, PERRL, Scleral icterus Pupil Exam: absent: NORMAL ACCOMODATION Additional comments: blind left eye - ENT Exam ENT Exam: Mucous Membranes Dry - Neck Exam Neck Exam: absent: Lymphadenopathy - Respiratory Exam Respiratory Exam: Decreased Breath Sounds - Cardiovascular Exam Cardiovascular Exam: REGULAR RHYTHM, +S1, +S2 - GI/Abdominal Exam GI & Abdominal Exam: Distended, Soft. absent: Tenderness - Rectal Exam Rectal Exam: Deferred - Exam Exam: NORMAL INSPECTION - Extremities Exam Extremities Exam: absent: Pedal Edema - Back Exam Back Exam: absent: CVA tenderness (L), CVA tenderness (R) - Neurological Exam Neurological Exam: Alert, Awake, Oriented x3 Assessment and Plan (1) Anemia Status: Acute (2) Pneumonia Status: Acute (3) Lower GI bleeding Status: Resolved (4) Mass in rectum Status: Acute (5) Rectal adenocarcinoma Status: Acute (6) Endocarditis Status: Acute - Assessment and Plan (Free Text) Assessment: 67 yo male with pmhx of adenocarcinoma of rectum, BPH, HTN, hypercholesterolemia , gout, that was admitted to the hospital for rectal bleeding. on serial chest xrays patient was found to have persistent bilateral pleural effusions. Has vegetation on valve and + blood cultures Being treated for endocarditis Patient underwent thoracentesis on 03/21/2018 and 1.5 L of fluid was removed from right side. Patient underwent left sided thoracentesis on 03/25/2018, and 860ml of fluid removed. Recent CT scan on 03/25/2018 shows increased bilateral pleural effusion. IR placed bilateral chest tubes. Has vegetation on valve and + blood cultures Being treated for endocarditis with IV Rocephin for 6 weeks Renal on board to r/o glomerulonephritis
[2018-04-07 12:31] LABS: OSMOLALITY,URINE 621 mosm/kg (300-1000)
--- NOTE | 2018-04-07 14:17 | CP.PCM.PN ---
Subjective - Date & Time of Evaluation Date of Evaluation: 04/07/18 Time of Evaluation: 14:08 - Subjective Subjective: Pt s/e. ct of chest: small bilateral nodules and small effusions bilateral. I had difficulty documenting chest tube outputs(d/w nurses for corrective measures) Oncology consult to determine if he would be a candidate for chemo if bx of nodules prove to be malignant. Bronchoscopy for pul. nodules. a/p: Bilateral pleural effusions. Bilateral pulmonary nodules etiol ?. Oncology consult. Bronchoscopy. Consider VATS pleurodesis or talc slurry pleurodesis. d/w Dr. Ray. Objective - Vital Signs/Intake and Output Vital Signs (last 24 hours): Temp Pulse Resp BP Pulse Ox 97.9 F 99 H 18 105/46 L 99 04/07/18 07:00 04/07/18 07:55 04/07/18 07:00 04/07/18 07:00 04/07/18 07:00 Intake and Output: 04/07/18 04/07/18 06:59 18:59 Intake Total 600 Output Total 735 Balance -135 - Medications Medications: Current Medications Acetaminophen (Tylenol 325mg Tab) 650 mg PO Q4 PRN PRN Reason: Pain, Mild (1-3) Last Admin: 04/07/18 04:36 Dose: 650 mg Albuterol/Ipratropium (Duoneb 3 Mg/0.5 Mg (3 Ml) Ud) 3 ml INH RQ6 ANIYAH Last Admin: 04/07/18 13:42 Dose: 3 ml Ferrous Sulfate (Feosol) 325 mg PO TID ANIYAH Last Admin: 04/07/18 10:22 Dose: 325 mg Furosemide (Lasix) 20 mg PO DAILY [facility]AH Last Admin: 04/01/18 09:11 Dose: 20 mg Ceftriaxone Sodium 2 gm/ (Sodium Chloride) 100 mls @ 100 mls/hr IVPB DAILY ANIYAH PRN Reason: Protocol Last Admin: 04/07/18 10:21 Dose: 100 mls/hr Lidocaine (Lidoderm) 2 ea TD Q24H PRN PRN Reason: PAIN -- SEE DOSE INSTRUCTIONS Last Admin: 04/07/18 10:22 Dose: 2 ea Ondansetron HCl (Zofran Inj) 4 mg IVP Q6H PRN PRN Reason: Nausea/Vomiting Last Admin: 04/07/18 12:15 Dose: 4 mg Pantoprazole Sodium (Protonix Ec Tab) 40 mg PO DAILY [facility]IYAH Last Admin: 04/07/18 10:22 Dose: 40 mg - Labs Labs: 04/06/18 08:05 04/06/18 08:05 PT 13.6 SECONDS (9.7-12.2) H 03/20/18 07:25 INR 1.2 03/20/18 07:25 APTT 32 SECONDS (21-34) D 03/20/18 07:25
--- NOTE | 2018-04-07 23:50 | CP.PCM.PN ---
Subjective - Date & Time of Evaluation Date of Evaluation: 04/07/18 Time of Evaluation: 13:00 - Subjective Subjective: Patient evaluated by thoracic surgery. CT scan of the chest revealed multiple bilateral nodules of undetermined etiology. Request for a bronchoscopy, and re- evaluation by Oncology. Hpwever, the patient is very weal, with poor appetite. Objective - Vital Signs/Intake and Output Vital Signs (last 24 hours): Temp Pulse Resp BP Pulse Ox 97.7 F 99 H 18 105/33 L 99 04/07/18 15:00 04/07/18 16:00 04/07/18 15:00 04/07/18 15:00 04/07/18 15:00 Intake and Output: 04/07/18 04/08/18 18:59 06:59 Intake Total 50 Output Total 640 Balance -590 - Medications Medications: Current Medications Acetaminophen (Tylenol 325mg Tab) 650 mg PO Q4 PRN PRN Reason: Pain, Mild (1-3) Last Admin: 04/07/18 04:36 Dose: 650 mg Albuterol/Ipratropium (Duoneb 3 Mg/0.5 Mg (3 Ml) Ud) 3 ml INH RQ6 ANIYAH Last Admin: 04/07/18 19:30 Dose: 3 ml Ferrous Sulfate (Feosol) 325 mg PO TID ANIYAH Last Admin: 04/07/18 18:25 Dose: 325 mg Furosemide (Lasix) 20 mg PO DAILY [facility] Last Admin: 04/01/18 09:11 Dose: 20 mg Ceftriaxone Sodium 2 gm/ (Sodium Chloride) 100 mls @ 100 mls/hr IVPB DAILY ANIYAH PRN Reason: Protocol Last Admin: 04/07/18 10:21 Dose: 100 mls/hr Lidocaine (Lidoderm) 2 ea TD Q24H PRN PRN Reason: PAIN -- SEE DOSE INSTRUCTIONS Last Admin: 04/07/18 10:22 Dose: 2 ea Ondansetron HCl (Zofran Inj) 4 mg IVP Q6H PRN PRN Reason: Nausea/Vomiting Last Admin: 04/07/18 12:15 Dose: 4 mg Pantoprazole Sodium (Protonix Ec Tab) 40 mg PO DAILY [facility] Last Admin: 04/07/18 10:22 Dose: 40 mg - Labs Labs: 04/06/18 08:05 04/06/18 08:05 PT 13.6 SECONDS (9.7-12.2) H 03/20/18 07:25 INR 1.2 03/20/18 07:25 APTT 32 SECONDS (21-34) D 03/20/18 07:25 - Constitutional Appears: No Acute Distress, Cachectic, Chronically Ill - Head Exam Head Exam: NORMAL INSPECTION - Eye Exam Eye Exam: Normal appearance - ENT Exam ENT Exam: Normal Exam - Neck Exam Neck Exam: Normal Inspection - Respiratory Exam Respiratory Exam: Rhonchi - Cardiovascular Exam Cardiovascular Exam: REGULAR RHYTHM - GI/Abdominal Exam GI & Abdominal Exam: Soft, Normal Bowel Sounds - Rectal Exam Rectal Exam: Deferred - Exam Exam: NORMAL INSPECTION - Extremities Exam Extremities Exam: Normal Inspection - Back Exam Back Exam: NORMAL INSPECTION - Neurological Exam Neurological Exam: Alert, Awake, Oriented x3 - Psychiatric Exam Psychiatric exam: Anxious - Skin Skin Exam: Dry, Intact Assessment and Plan (1) Lower GI bleeding Status: Resolved (2) Anemia Status: Acute (3) Pneumonia Assessment & Plan: On IV antibiotics Status: Acute (4) Hyperkalemia Status: Resolved (5) Hyponatremia Assessment & Plan: W/u for SIADH Status: Resolved (6) Acute diastolic (congestive) heart failure Status: Resolved (7) Acute bacterial endocarditis Assessment & Plan: On IV antibiotic. Status: Acute (8) Acute non-ST elevation myocardial infarction (NSTEMI) Status: Acute (9) Bilateral pleural effusion Assessment & Plan: Bilateral chest tube still draining. May needs VATS. Status: Acute
[2018-04-08] MEDS: Albuterol-Ipratrop 3 mg / 0.5 (3 ml) UD INH SCH ×4 (01:04→19:54)
[2018-04-08 07:58] LABS: ALBUMIN 2.9 g/dL (3.5-5.0); ALT/SGPT 20 U/L (21-72); AST/SGOT 23 U/L (17-59); BLOOD UREA NITROGEN 56 mg/dL (9-20); CALCIUM 7.9 mg/dl (8.6-10.4); GFR NON-AFRICAN AMERICAN > 60
--- NOTE | 2018-04-08 09:02 | CP.PCM.PN ---
Subjective - Date & Time of Evaluation Date of Evaluation: 04/08/18 Time of Evaluation: 08:59 - Subjective Subjective: Awake, same weakness CT in place Urine studies not c/w SIADH; and serum uric acid elevated Appears more volume depleted Objective - Vital Signs/Intake and Output Vital Signs (last 24 hours): Temp Pulse Resp BP Pulse Ox 97.4 F L 93 H 18 101/37 L 100 04/08/18 07:25 04/08/18 07:25 04/08/18 07:25 04/08/18 07:25 04/08/18 07:25 Intake and Output: 04/08/18 04/08/18 06:59 18:59 Intake Total 240 Output Total 320 Balance -80 - Medications Medications: Current Medications Acetaminophen (Tylenol 325mg Tab) 650 mg PO Q4 PRN PRN Reason: Pain, Mild (1-3) Last Admin: 04/07/18 04:36 Dose: 650 mg Albuterol/Ipratropium (Duoneb 3 Mg/0.5 Mg (3 Ml) Ud) 3 ml INH RQ6 ANIYAH Last Admin: 04/08/18 07:52 Dose: 3 ml Ferrous Sulfate (Feosol) 325 mg PO TID ANIYAH Last Admin: 04/07/18 18:25 Dose: 325 mg Furosemide (Lasix) 20 mg PO DAILY [facility] Last Admin: 04/01/18 09:11 Dose: 20 mg Ceftriaxone Sodium 2 gm/ (Sodium Chloride) 100 mls @ 100 mls/hr IVPB DAILY ANIYAH PRN Reason: Protocol Last Admin: 04/07/18 10:21 Dose: 100 mls/hr Lidocaine (Lidoderm) 2 ea TD Q24H PRN PRN Reason: PAIN -- SEE DOSE INSTRUCTIONS Last Admin: 04/07/18 10:22 Dose: 2 ea Ondansetron HCl (Zofran Inj) 4 mg IVP Q6H PRN PRN Reason: Nausea/Vomiting Last Admin: 04/07/18 12:15 Dose: 4 mg Pantoprazole Sodium (Protonix Ec Tab) 40 mg PO DAILY [facility] Last Admin: 04/07/18 10:22 Dose: 40 mg - Labs Labs: 04/06/18 08:05 04/08/18 06:52 PT 13.6 SECONDS (9.7-12.2) H 03/20/18 07:25 INR 1.2 03/20/18 07:25 APTT 32 SECONDS (21-34) D 03/20/18 07:25 - Constitutional Appears: Cachectic, Chronically Ill - Head Exam Head Exam: ATRAUMATIC, NORMAL INSPECTION - Eye Exam Eye Exam: EOMI, Periorbital swelling - Neck Exam Neck Exam: Normal Inspection. absent: Tenderness - Respiratory Exam Respiratory Exam: Decreased Breath Sounds, Clear to Ausculation Bilateral - Cardiovascular Exam Cardiovascular Exam: REGULAR RHYTHM, +S1 - GI/Abdominal Exam GI & Abdominal Exam: Soft. absent: Tenderness - Extremities Exam Extremities Exam: Normal Inspection. absent: Tenderness - Neurological Exam Neurological Exam: Awake, CN II-XII Intact - Skin Skin Exam: Dry, Warm Assessment and Plan (1) Rectal cancer Status: Acute (2) Pleural effusion Status: Acute (3) Hyponatremia Status: Acute (4) Acute non-ST elevation myocardial infarction (NSTEMI) Status: Acute (5) Rectal adenocarcinoma Status: Acute - Assessment and Plan (Free Text) Plan: Trial IV gentle hydration with saline
[2018-04-08] MEDS: Sodium Chloride 0.9% 1,000 ML IV SCH (10:10)
[2018-04-08] MEDS: Pantoprazole 40 mg EC Tab PO SCH (10:10)
[2018-04-08] MEDS: cefTRIAXone 2 GM in Sodium Chloride 0.9% 100 ML IVPB SCH (10:11)
--- NOTE | 2018-04-08 14:11 | CP.PCM.PN ---
Subjective - Date & Time of Evaluation Date of Evaluation: 04/08/18 Time of Evaluation: 14:07 - Subjective Subjective: Pt s/e. Will perform talc slurry pleurodesis without bx under fluroscopic guidance under local + Iv sedation, sequentially. d/w Dr Ray who agreed to the plan. d/w Dr. Noel. Objective - Vital Signs/Intake and Output Vital Signs (last 24 hours): Temp Pulse Resp BP Pulse Ox 97.4 F L 93 H 18 101/37 L 100 04/08/18 07:25 04/08/18 07:25 04/08/18 07:25 04/08/18 07:25 04/08/18 07:25 Intake and Output: 04/08/18 04/08/18 06:59 18:59 Intake Total 240 Output Total 320 Balance -80 - Medications Medications: Current Medications Acetaminophen (Tylenol 325mg Tab) 650 mg PO Q4 PRN PRN Reason: Pain, Mild (1-3) Last Admin: 04/07/18 04:36 Dose: 650 mg Albuterol/Ipratropium (Duoneb 3 Mg/0.5 Mg (3 Ml) Ud) 3 ml INH RQ6 ANIYAH Last Admin: 04/08/18 13:47 Dose: 3 ml Ferrous Sulfate (Feosol) 325 mg PO TID ANIYAH Last Admin: 04/08/18 10:10 Dose: 325 mg Furosemide (Lasix) 20 mg PO DAILY [facility] Last Admin: 04/01/18 09:11 Dose: 20 mg Ceftriaxone Sodium 2 gm/ (Sodium Chloride) 100 mls @ 100 mls/hr IVPB DAILY ANIYAH PRN Reason: Protocol Last Admin: 04/08/18 10:11 Dose: 100 mls/hr Sodium Chloride (Sodium Chloride 0.9%) 1,000 mls @ 50 mls/hr IV .Q20H ANIYAH Last Admin: 04/08/18 10:10 Dose: 50 mls/hr Lidocaine (Lidoderm) 2 ea TD Q24H PRN PRN Reason: PAIN -- SEE DOSE INSTRUCTIONS Last Admin: 04/07/18 10:22 Dose: 2 ea Ondansetron HCl (Zofran Inj) 4 mg IVP Q6H PRN PRN Reason: Nausea/Vomiting Last Admin: 04/07/18 12:15 Dose: 4 mg Pantoprazole Sodium (Protonix Ec Tab) 40 mg PO DAILY ANIYAH Last Admin: 04/08/18 10:10 Dose: 40 mg - Labs Labs: 04/06/18 08:05 04/08/18 06:52 PT 13.6 SECONDS (9.7-12.2) H 03/20/18 07:25 INR 1.2 03/20/18 07:25 APTT 32 SECONDS (21-34) D 03/20/18 07:25
--- NOTE | 2018-04-08 14:45 | CP.PCM.CON ---
History of Present Illness - History of Present Illness History of Present Illness: reason for consultation; lung nodule/ bilateral pleural effusion Patient is a 67 yo male with pmhx of adenocarcinoma of rectum, BPH, HTN, hypercholesterolemia, gout, that was admitted to the hospital for rectal bleeding. on serial chest xrays patient was found to have persistent bilateral pleural effusions. Patient underwent thoracentesis on 03/21/2018 and 1.5 L of fluid was removed from right side. Patient underwent left sided thoracentesis on 03/25/2018, and 860ml of fluid removed. Later patient had bilateral pigtail catheters inserted. CAT scan of the chest done today showed small bilateral pleural effusion/bibasilar consolidation and small nodule. Patient denies cough, denies fevers chills. PMhx: Adenocarcinoma Rectum, HTN, HLD, BPH, Anemia, Left eye blindness PSH: hernia repair Allergies: aspirin SH: Former smoker, no alcohol or illicit drug use. Lives with family. FH: no known family Hx. Denies family hx of cancer. Review of Systems - Review of Systems All systems: reviewed and no additional remarkable complaints except Past Patient History - Tetanus Immunizations Tetanus Immunization: Unknown - Past Medical History & Family History Past Medical History?: Yes Past Family History: Reviewed and not pertinent - Past Social History Smoking Status: Former Smoker Chewing Tobacco Use: No Cigar Use: No Alcohol: None Drugs: Denies Home Situation {Lives}: With Family Domestic Violence: Negative - CARDIAC Hx Hypercholesterolemia: Yes Hx Hypertension: Yes - PULMONARY Hx Respiratory Disorders: No - NEUROLOGICAL Hx Neurological Disorder: No - HEENT Hx HEENT Problems: Yes Hx Blind: Yes (left eye) Other/Comment: 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 - GENITOURINARY/GYNECOLOGICAL Hx Genitourinary Disorders: No - PSYCHIATRIC Hx Substance Use: No - SURGICAL HISTORY Hx Surgeries: Yes Hx Herniorrhaphy: Yes (left) - ANESTHESIA Hx Anesthesia: Yes Hx Anesthesia Reactions: No Meds Allergies/Adverse Reactions: Allergies Allergy/AdvReac Type Severity Reaction Status Date / Time aspirin Allergy Verified 03/18/18 16:47 - Medications Medications: Current Medications Acetaminophen (Tylenol 325mg Tab) 650 mg PO Q4 PRN PRN Reason: Pain, Mild (1-3) Last Admin: 04/07/18 04:36 Dose: 650 mg Albuterol/Ipratropium (Duoneb 3 Mg/0.5 Mg (3 Ml) Ud) 3 ml INH RQ6 ANIYAH Last Admin: 04/08/18 13:47 Dose: 3 ml Ferrous Sulfate (Feosol) 325 mg PO TID [facility] Last Admin: 04/08/18 14:39 Dose: 325 mg Furosemide (Lasix) 20 mg PO DAILY [facility] Last Admin: 04/01/18 09:11 Dose: 20 mg Ceftriaxone Sodium 2 gm/ (Sodium Chloride) 100 mls @ 100 mls/hr IVPB DAILY ANIYAH PRN Reason: Protocol Last Admin: 04/08/18 10:11 Dose: 100 mls/hr Sodium Chloride (Sodium Chloride 0.9%) 1,000 mls @ 50 mls/hr IV .Q20H [facility] Last Admin: 04/08/18 10:10 Dose: 50 mls/hr Lidocaine (Lidoderm) 2 ea TD Q24H PRN PRN Reason: PAIN -- SEE DOSE INSTRUCTIONS Last Admin: 04/07/18 10:22 Dose: 2 ea Ondansetron HCl (Zofran Inj) 4 mg IVP Q6H PRN PRN Reason: Nausea/Vomiting Last Admin: 04/07/18 12:15 Dose: 4 mg Pantoprazole Sodium (Protonix Ec Tab) 40 mg PO DAILY [facility] Last Admin: 04/08/18 10:10 Dose: 40 mg Physical Exam - Head Exam Head Exam: ATRAUMATIC, NORMOCEPHALIC - ENT Exam ENT Exam: Mucous Membranes Moist - Respiratory Exam Respiratory Exam: Clear to Auscultation Bilateral - Cardiovascular Exam Cardiovascular Exam: REGULAR RHYTHM - GI/Abdominal Exam GI & Abdominal Exam: Normal Bowel Sounds, Soft - Extremities Exam Extremities exam: Positive for: pedal edema - Neurological Exam Neurological exam: Alert Results - Vital Signs Recent Vital Signs: Last Vital Signs Temp 97.4 F L 04/08/18 07:25 Pulse 93 H 04/08/18 07:25 Resp 18 04/08/18 07:25 BP 101/37 L 04/08/18 07:25 Pulse Ox 100 04/08/18 07:25 - Labs Result Diagrams: 04/06/18 08:05 04/08/18 06:52 Labs: Laboratory Results - last 24 hr 04/08/18 06:52 Sodium 130 L Potassium 4.9 Chloride 91 L Carbon Dioxide 28 Anion Gap 16 BUN 56 H Creatinine 1.1 Est GFR ( Amer) > 60 Est GFR (Non-Af Amer) > 60 Random Glucose 131 H Calcium 7.9 L Phosphorus 4.5 Magnesium 2.6 H Total Bilirubin 0.5 AST 23 ALT 20 L D Alkaline Phosphatase 102 Total Protein 5.8 L Albumin 2.9 L Globulin 2.9 Albumin/Globulin Ratio 1.0 Assessment & Plan (1) Lung nodule < 6cm on CT Status: Acute Comment: Small lung nodules not amenable to biopsy (2) Bilateral pleural effusion Assessment and Plan: small bilateral pleural effusion improve nutritional status Continue nebulizer treatment Status: Acute
--- NOTE | 2018-04-08 15:41 | CP.PCM.PCO ---
Physician Communication Note - Physician Communication Note Physician Communication Note: OR chest tube and talc pleurodesis
--- NOTE | 2018-04-08 16:57 | CP.PCM.PN ---
Subjective - Date & Time of Evaluation Date of Evaluation: 04/08/18 Time of Evaluation: 13:00 - Subjective Subjective: Patient scheduled for pleuradesis by Dr Michel ( thoracic surgeon). Weak, on IVF for dehydration. Objective - Vital Signs/Intake and Output Vital Signs (last 24 hours): Temp Pulse Resp BP Pulse Ox 98.9 F 102 H 20 110/46 L 100 04/08/18 15:00 04/08/18 16:40 04/08/18 15:00 04/08/18 15:00 04/08/18 15:00 Intake and Output: 04/08/18 04/08/18 06:59 18:59 Intake Total 240 730 Output Total 320 990 Balance -80 -260 - Medications Medications: Current Medications Acetaminophen (Tylenol 325mg Tab) 650 mg PO Q4 PRN PRN Reason: Pain, Mild (1-3) Last Admin: 04/07/18 04:36 Dose: 650 mg Albuterol/Ipratropium (Duoneb 3 Mg/0.5 Mg (3 Ml) Ud) 3 ml INH RQ6 ANIYAH Last Admin: 04/08/18 13:47 Dose: 3 ml Ferrous Sulfate (Feosol) 325 mg PO TID [facility]IYAH Last Admin: 04/08/18 14:39 Dose: 325 mg Furosemide (Lasix) 20 mg PO DAILY [facility] Last Admin: 04/01/18 09:11 Dose: 20 mg Ceftriaxone Sodium 2 gm/ (Sodium Chloride) 100 mls @ 100 mls/hr IVPB DAILY ANIYAH PRN Reason: Protocol Last Admin: 04/08/18 10:11 Dose: 100 mls/hr Sodium Chloride (Sodium Chloride 0.9%) 1,000 mls @ 50 mls/hr IV .Q20H ANIYAH Last Admin: 04/08/18 10:10 Dose: 50 mls/hr Lidocaine (Lidoderm) 2 ea TD Q24H PRN PRN Reason: PAIN -- SEE DOSE INSTRUCTIONS Last Admin: 04/07/18 10:22 Dose: 2 ea Ondansetron HCl (Zofran Inj) 4 mg IVP Q6H PRN PRN Reason: Nausea/Vomiting Last Admin: 04/07/18 12:15 Dose: 4 mg Pantoprazole Sodium (Protonix Ec Tab) 40 mg PO DAILY [facility] Last Admin: 04/08/18 10:10 Dose: 40 mg - Labs Labs: 04/06/18 08:05 04/08/18 06:52 PT 13.6 SECONDS (9.7-12.2) H 03/20/18 07:25 INR 1.2 03/20/18 07:25 APTT 32 SECONDS (21-34) D 03/20/18 07:25 - Constitutional Appears: No Acute Distress, Cachectic, Chronically Ill - Head Exam Head Exam: NORMAL INSPECTION - Eye Exam Eye Exam: Normal appearance - ENT Exam ENT Exam: Normal Exam - Neck Exam Neck Exam: Normal Inspection - Respiratory Exam Additional comments: Rhonchi bibasilarly. - Cardiovascular Exam Cardiovascular Exam: REGULAR RHYTHM, Murmur - GI/Abdominal Exam GI & Abdominal Exam: Soft, Normal Bowel Sounds - Rectal Exam Rectal Exam: Deferred - Exam Exam: NORMAL INSPECTION - Extremities Exam Extremities Exam: Normal Inspection - Back Exam Back Exam: NORMAL INSPECTION - Neurological Exam Neurological Exam: Alert, Awake, Oriented x3 - Psychiatric Exam Psychiatric exam: Anxious - Skin Skin Exam: Dry, Intact Assessment and Plan (1) Lower GI bleeding Status: Resolved (2) Anemia Status: Acute (3) Pneumonia Assessment & Plan: On IV Rocephin. Status: Acute (4) Hyperkalemia Status: Resolved (5) Hyponatremia Status: Resolved (6) Acute diastolic (congestive) heart failure Status: Resolved (7) Acute bacterial endocarditis Assessment & Plan: On IV antibiotic. Status: Acute (8) Acute non-ST elevation myocardial infarction (NSTEMI) Status: Acute (9) Bilateral pleural effusion Assessment & Plan: For pleuradesis. Status: Acute
[2018-04-09] MEDS: Sodium Chloride 0.9% 1,000 ML IV SCH ×2 (05:00→08:08)
[2018-04-09] MEDS: Pantoprazole 40 mg EC Tab PO SCH (10:09)
[2018-04-09] MEDS: cefTRIAXone 2 GM in Sodium Chloride 0.9% 100 ML IVPB SCH (10:09)
--- NOTE | 2018-04-09 12:11 | CP.PCM.PN ---
Subjective - Date & Time of Evaluation Date of Evaluation: 04/09/18 Time of Evaluation: 12:00 - Subjective Subjective: pt s/e. chest tube output: left 890 right 670-seroanguinous. He is scheduled for talc slurry pleurodesis tomorrow. However, he feels he is too weak to undergo procedure, and is basically against any procedures. I reached out to Dr. Ray who will come up to the floor this pm to help him rectify some of his troubling issues. Objective - Vital Signs/Intake and Output Vital Signs (last 24 hours): Temp Pulse Resp BP Pulse Ox 97.4 F L 93 H 18 104/42 L 100 04/09/18 07:00 04/09/18 07:00 04/09/18 07:00 04/09/18 07:00 04/09/18 07:00 Intake and Output: 04/09/18 04/09/18 06:59 18:59 Intake Total 400 Output Total 960 Balance -560 - Medications Medications: Current Medications Acetaminophen (Tylenol 325mg Tab) 650 mg PO Q4 PRN PRN Reason: Pain, Mild (1-3) Last Admin: 04/08/18 22:41 Dose: 650 mg Ferrous Sulfate (Feosol) 325 mg PO TID [facility] Last Admin: 04/09/18 10:09 Dose: 325 mg Furosemide (Lasix) 20 mg PO DAILY [facility] Last Admin: 04/01/18 09:11 Dose: 20 mg Ceftriaxone Sodium 2 gm/ (Sodium Chloride) 100 mls @ 100 mls/hr IVPB DAILY [facility] PRN Reason: Protocol Last Admin: 04/09/18 10:09 Dose: 100 mls/hr Sodium Chloride (Sodium Chloride 0.9%) 1,000 mls @ 50 mls/hr IV .Q20H [facility] Last Admin: 04/09/18 08:08 Dose: 50 mls/hr Lidocaine (Lidoderm) 2 ea TD Q24H PRN PRN Reason: PAIN -- SEE DOSE INSTRUCTIONS Last Admin: 04/07/18 10:22 Dose: 2 ea Ondansetron HCl (Zofran Inj) 4 mg IVP Q6H PRN PRN Reason: Nausea/Vomiting Last Admin: 04/07/18 12:15 Dose: 4 mg Pantoprazole Sodium (Protonix Ec Tab) 40 mg PO DAILY [facility] Last Admin: 04/09/18 10:09 Dose: 40 mg - Labs Labs: 04/06/18 08:05 04/08/18 06:52 PT 13.6 SECONDS (9.7-12.2) H 03/20/18 07:25 INR 1.2 03/20/18 07:25 APTT 32 SECONDS (21-34) D 03/20/18 07:25
--- NOTE | 2018-04-09 14:46 | CP.PCM.PN ---
Subjective - Date & Time of Evaluation Date of Evaluation: 04/09/18 Time of Evaluation: 14:44 - Subjective Subjective: chronic pain chronic dyspnea no nausea no vomiting no urinary complaints no headache no rash no joint pain Objective - Vital Signs/Intake and Output Vital Signs (last 24 hours): Temp Pulse Resp BP Pulse Ox 97.4 F L 93 H 18 104/42 L 100 04/09/18 07:00 04/09/18 07:00 04/09/18 07:00 04/09/18 07:00 04/09/18 07:00 Intake and Output: 04/09/18 04/09/18 06:59 18:59 Intake Total 400 Output Total 960 Balance -560 - Medications Medications: Current Medications Acetaminophen (Tylenol 325mg Tab) 650 mg PO Q4 PRN PRN Reason: Pain, Mild (1-3) Last Admin: 04/08/18 22:41 Dose: 650 mg Ferrous Sulfate (Feosol) 325 mg PO TID [facility] Last Admin: 04/09/18 14:27 Dose: 325 mg Furosemide (Lasix) 20 mg PO DAILY [facility] Last Admin: 04/01/18 09:11 Dose: 20 mg Ceftriaxone Sodium 2 gm/ (Sodium Chloride) 100 mls @ 100 mls/hr IVPB DAILY [facility] PRN Reason: Protocol Last Admin: 04/09/18 10:09 Dose: 100 mls/hr Sodium Chloride (Sodium Chloride 0.9%) 1,000 mls @ 50 mls/hr IV .Q20H [facility] Last Admin: 04/09/18 08:08 Dose: 50 mls/hr Lidocaine (Lidoderm) 2 ea TD Q24H PRN PRN Reason: PAIN -- SEE DOSE INSTRUCTIONS Last Admin: 04/07/18 10:22 Dose: 2 ea Ondansetron HCl (Zofran Inj) 4 mg IVP Q6H PRN PRN Reason: Nausea/Vomiting Last Admin: 04/07/18 12:15 Dose: 4 mg Pantoprazole Sodium (Protonix Ec Tab) 40 mg PO DAILY [facility] Last Admin: 04/09/18 10:09 Dose: 40 mg - Labs Labs: 04/06/18 08:05 04/08/18 06:52 PT 13.6 SECONDS (9.7-12.2) H 03/20/18 07:25 INR 1.2 03/20/18 07:25 APTT 32 SECONDS (21-34) D 03/20/18 07:25 - Constitutional Appears: Cachectic, Chronically Ill - Head Exam Head Exam: ATRAUMATIC - Eye Exam Eye Exam: EOMI - ENT Exam ENT Exam: Mucous Membranes Moist - Neck Exam Neck Exam: Lymphadenopathy - Respiratory Exam Respiratory Exam: Decreased Breath Sounds. absent: Accessory Muscle Use Additional comments: chest tube + - GI/Abdominal Exam GI & Abdominal Exam: Soft. absent: Tenderness - Neurological Exam Neurological Exam: Alert, Awake Assessment and Plan - Assessment and Plan (Free Text) Assessment: hyponatremia, likely due to hyposmolar hypovolemia NS being given trend labs
--- NOTE | 2018-04-09 16:06 | CP.PCM.PN ---
Subjective - Date & Time of Evaluation Date of Evaluation: 04/09/18 Time of Evaluation: 08:00 - Subjective Subjective: iv rx in progress for pleurodesis Objective - Vital Signs/Intake and Output Vital Signs (last 24 hours): Temp Pulse Resp BP Pulse Ox 97.4 F L 93 H 18 104/42 L 100 04/09/18 07:00 04/09/18 07:00 04/09/18 07:00 04/09/18 07:00 04/09/18 07:00 Intake and Output: 04/09/18 04/09/18 06:59 18:59 Intake Total 400 Output Total 960 Balance -560 - Medications Medications: Current Medications Acetaminophen (Tylenol 325mg Tab) 650 mg PO Q4 PRN PRN Reason: Pain, Mild (1-3) Last Admin: 04/08/18 22:41 Dose: 650 mg Ferrous Sulfate (Feosol) 325 mg PO TID [facility] Last Admin: 04/09/18 14:27 Dose: 325 mg Furosemide (Lasix) 20 mg PO DAILY [facility] Last Admin: 04/01/18 09:11 Dose: 20 mg Ceftriaxone Sodium 2 gm/ (Sodium Chloride) 100 mls @ 100 mls/hr IVPB DAILY [facility] PRN Reason: Protocol Last Admin: 04/09/18 10:09 Dose: 100 mls/hr Sodium Chloride (Sodium Chloride 0.9%) 1,000 mls @ 50 mls/hr IV .Q20H [facility] Last Admin: 04/09/18 08:08 Dose: 50 mls/hr Lidocaine (Lidoderm) 2 ea TD Q24H PRN PRN Reason: PAIN -- SEE DOSE INSTRUCTIONS Last Admin: 04/07/18 10:22 Dose: 2 ea Ondansetron HCl (Zofran Inj) 4 mg IVP Q6H PRN PRN Reason: Nausea/Vomiting Last Admin: 04/07/18 12:15 Dose: 4 mg Pantoprazole Sodium (Protonix Ec Tab) 40 mg PO DAILY [facility] Last Admin: 04/09/18 10:09 Dose: 40 mg - Labs Labs: 04/06/18 08:05 04/08/18 06:52 PT 13.6 SECONDS (9.7-12.2) H 03/20/18 07:25 INR 1.2 03/20/18 07:25 APTT 32 SECONDS (21-34) D 03/20/18 07:25 - Constitutional Appears: Non-toxic, Chronically Ill - Head Exam Head Exam: NORMOCEPHALIC - Eye Exam Eye Exam: absent: PERRL Pupil Exam: absent: NORMAL ACCOMODATION Additional comments: blind left eye - ENT Exam ENT Exam: Mucous Membranes Dry - Neck Exam Neck Exam: absent: Lymphadenopathy - Respiratory Exam Respiratory Exam: Decreased Breath Sounds - Cardiovascular Exam Cardiovascular Exam: REGULAR RHYTHM - GI/Abdominal Exam GI & Abdominal Exam: Distended - Rectal Exam Rectal Exam: Deferred - Exam Exam: NORMAL INSPECTION - Extremities Exam Extremities Exam: absent: Pedal Edema - Back Exam Back Exam: absent: CVA tenderness (L) - Neurological Exam Neurological Exam: Alert, Awake, Oriented x3 - Psychiatric Exam Psychiatric exam: Depressed - Skin Skin Exam: Dry Assessment and Plan (1) Anemia Status: Acute (2) Pneumonia Status: Acute (3) Lower GI bleeding Status: Resolved (4) Mass in rectum Status: Acute (5) Rectal adenocarcinoma Status: Acute (6) Endocarditis Status: Acute - Assessment and Plan (Free Text) Assessment: for pleurodesis IV rocephin renewed
--- NOTE | 2018-04-09 17:39 | CP.PCM.PN ---
Subjective - Date & Time of Evaluation Date of Evaluation: 04/09/18 Time of Evaluation: 12:20 - Subjective Subjective: Patient seen and examined Blood pigtail catheters draining fluid Possible pleurodesis on Patient is reluctant for the procedure No shortness of breath will gain no benefit from bronchoscopy Objective - Vital Signs/Intake and Output Vital Signs (last 24 hours): Temp Pulse Resp BP Pulse Ox 98.4 F 97 H 20 101/44 L 100 04/09/18 15:00 04/09/18 15:00 04/09/18 15:00 04/09/18 15:00 04/09/18 15:00 Intake and Output: 04/09/18 04/09/18 06:59 18:59 Intake Total 400 Output Total 960 Balance -560 - Medications Medications: Current Medications Acetaminophen (Tylenol 325mg Tab) 650 mg PO Q4 PRN PRN Reason: Pain, Mild (1-3) Last Admin: 04/08/18 22:41 Dose: 650 mg Ferrous Sulfate (Feosol) 325 mg PO TID [facility] Last Admin: 04/09/18 14:27 Dose: 325 mg Furosemide (Lasix) 20 mg PO DAILY [facility] Last Admin: 04/01/18 09:11 Dose: 20 mg Ceftriaxone Sodium 2 gm/ (Sodium Chloride) 100 mls @ 100 mls/hr IVPB DAILY [facility] PRN Reason: Protocol Last Admin: 04/09/18 10:09 Dose: 100 mls/hr Sodium Chloride (Sodium Chloride 0.9%) 1,000 mls @ 50 mls/hr IV .Q20H [facility] Last Admin: 04/09/18 08:08 Dose: 50 mls/hr Lidocaine (Lidoderm) 2 ea TD Q24H PRN PRN Reason: PAIN -- SEE DOSE INSTRUCTIONS Last Admin: 04/07/18 10:22 Dose: 2 ea Ondansetron HCl (Zofran Inj) 4 mg IVP Q6H PRN PRN Reason: Nausea/Vomiting Last Admin: 04/07/18 12:15 Dose: 4 mg Pantoprazole Sodium (Protonix Ec Tab) 40 mg PO DAILY [facility] Last Admin: 04/09/18 10:09 Dose: 40 mg - Labs Labs: 04/06/18 08:05 04/08/18 06:52 PT 13.6 SECONDS (9.7-12.2) H 03/20/18 07:25 INR 1.2 03/20/18 07:25 APTT 32 SECONDS (21-34) D 03/20/18 07:25 - Head Exam Head Exam: ATRAUMATIC, NORMOCEPHALIC - ENT Exam ENT Exam: Mucous Membranes Moist - Neck Exam Neck Exam: Normal Inspection - Respiratory Exam Respiratory Exam: Decreased Breath Sounds - Cardiovascular Exam Cardiovascular Exam: REGULAR RHYTHM - GI/Abdominal Exam GI & Abdominal Exam: Soft, Normal Bowel Sounds Assessment and Plan (1) Lung nodule < 6cm on CT Assessment & Plan: does not need bronchoscopy repeat CAT scan in 3 months Status: Acute (2) Bilateral pleural effusion Assessment & Plan: possible pleurodesis Status: Acute
[2018-04-10] MEDS: Sodium Chloride 0.9% 1,000 ML IV SCH ×3 (04:00→23:09)
[2018-04-10 08:21] LABS: HEMOGLOBIN 10.4 g/dL (12.0-18.0); MEAN CELL VOLUME 86.6 fL (80.0-94.0); MEAN CORPUSCULAR HEMOGLOBIN 29.1 pg (27.0-31.0); MEAN CORPUSCULAR HGB CONC 33.6 g/dL (33.0-37.0); MEAN PLATELET VOLUME 9.4 fL (7.2-11.7); RBC 3.58 Mil/uL (4.40-5.90); RED CELL DISTRIBUTION WIDTH 19.5 % (11.5-14.5); WHITE BLOOD COUNT 7.8 K/uL (4.8-10.8)
[2018-04-10 08:29] LABS: INR 1.1
[2018-04-10 08:47] LABS: BLOOD UREA NITROGEN 48 mg/dL (9-20); GFR NON-AFRICAN AMERICAN > 60
[2018-04-10] MEDS: Pantoprazole 40 mg EC Tab PO SCH (09:36)
--- NOTE | 2018-04-10 10:23 | CP.PCM.PN ---
Subjective - Date & Time of Evaluation Date of Evaluation: 04/10/18 Time of Evaluation: 10:21 - Subjective Subjective: events noted; pt considering pleuredesis Remains on gentle hydration- Na stable at 131 feels same otherwise Objective - Vital Signs/Intake and Output Vital Signs (last 24 hours): Temp Pulse Resp BP Pulse Ox 97.7 F 94 H 20 99/43 L 100 04/10/18 07:20 04/10/18 07:20 04/10/18 07:20 04/10/18 07:20 04/10/18 07:20 Intake and Output: 04/10/18 04/10/18 06:59 18:59 Intake Total 1150 Output Total 997 Balance 153 - Medications Medications: Current Medications Acetaminophen (Tylenol 325mg Tab) 650 mg PO Q4 PRN PRN Reason: Pain, Mild (1-3) Last Admin: 04/08/18 22:41 Dose: 650 mg Ferrous Sulfate (Feosol) 325 mg PO TID [facility] Last Admin: 04/09/18 17:49 Dose: 325 mg Furosemide (Lasix) 20 mg PO DAILY [facility] Last Admin: 04/01/18 09:11 Dose: 20 mg Ceftriaxone Sodium 2 gm/ (Sodium Chloride) 100 mls @ 100 mls/hr IVPB DAILY [facility] PRN Reason: Protocol Last Admin: 04/09/18 10:09 Dose: 100 mls/hr Sodium Chloride (Sodium Chloride 0.9%) 1,000 mls @ 50 mls/hr IV .Q20H [facility] Last Admin: 04/10/18 04:00 Dose: 50 mls/hr Lidocaine (Lidoderm) 2 ea TD Q24H PRN PRN Reason: PAIN -- SEE DOSE INSTRUCTIONS Last Admin: 04/07/18 10:22 Dose: 2 ea Ondansetron HCl (Zofran Inj) 4 mg IVP Q6H PRN PRN Reason: Nausea/Vomiting Last Admin: 04/09/18 17:50 Dose: 4 mg - Labs Labs: 04/10/18 08:09 04/10/18 08:09 PT 12.0 SECONDS (9.7-12.2) 04/10/18 08:09 INR 1.1 04/10/18 08:09 APTT 30 SECONDS (21-34) 04/10/18 08:09 - Constitutional Appears: No Acute Distress, Chronically Ill - Head Exam Head Exam: ATRAUMATIC, NORMAL INSPECTION - Eye Exam Eye Exam: EOMI, Periorbital tenderness - Neck Exam Neck Exam: Normal Inspection. absent: Tenderness - Respiratory Exam Respiratory Exam: Decreased Breath Sounds, NORMAL BREATHING PATTERN - Cardiovascular Exam Cardiovascular Exam: REGULAR RHYTHM, +S1 - GI/Abdominal Exam GI & Abdominal Exam: Soft. absent: Tenderness - Extremities Exam Extremities Exam: Normal Inspection. absent: Tenderness - Neurological Exam Neurological Exam: Awake, CN II-XII Intact - Skin Skin Exam: Dry, Warm Assessment and Plan (1) Rectal cancer Status: Acute (2) Pleural effusion Status: Acute (3) Hyponatremia Status: Acute (4) Acute non-ST elevation myocardial infarction (NSTEMI) Status: Acute (5) Rectal adenocarcinoma Status: Acute - Assessment and Plan (Free Text) Plan: Serial chemistries IV saline still possible pleuredesis
[2018-04-10] MEDS: cefTRIAXone 2 GM in Sodium Chloride 0.9% 100 ML IVPB SCH (10:27)
--- NOTE | 2018-04-10 12:52 | CP.PCM.PN ---
Subjective - Date & Time of Evaluation Date of Evaluation: 04/10/18 Time of Evaluation: 12:42 - Subjective Subjective: pt s/e. I met with the pt's daughter(whom I spoke with on phone yesterday) just outside the pts room this pm. She stated again the family and pt are not ready for the surgery. I have discussed the surgical procedure, risks, benefits, and alternatives. Lindsay(head nurse) was present throughout the discussion. Family is to contact my office or Lindsay if they wish to have surgery. Surgery cancelled. OR and Dr. Alarcon notified. Objective - Vital Signs/Intake and Output Vital Signs (last 24 hours): Temp Pulse Resp BP Pulse Ox 97.7 F 94 H 20 99/43 L 100 04/10/18 07:20 04/10/18 07:20 04/10/18 07:20 04/10/18 07:20 04/10/18 07:20 Intake and Output: 04/10/18 04/10/18 06:59 18:59 Intake Total 1150 Output Total 997 Balance 153 - Medications Medications: Current Medications Acetaminophen (Tylenol 325mg Tab) 650 mg PO Q4 PRN PRN Reason: Pain, Mild (1-3) Last Admin: 04/08/18 22:41 Dose: 650 mg Ferrous Sulfate (Feosol) 325 mg PO TID [facility] Last Admin: 04/09/18 17:49 Dose: 325 mg Furosemide (Lasix) 20 mg PO DAILY [facility] Last Admin: 04/01/18 09:11 Dose: 20 mg Ceftriaxone Sodium 2 gm/ (Sodium Chloride) 100 mls @ 100 mls/hr IVPB DAILY [facility] PRN Reason: Protocol Last Admin: 04/10/18 10:27 Dose: 100 mls/hr Sodium Chloride (Sodium Chloride 0.9%) 1,000 mls @ 50 mls/hr IV .Q20H [facility] Last Admin: 04/10/18 04:00 Dose: 50 mls/hr Lidocaine (Lidoderm) 2 ea TD Q24H PRN PRN Reason: PAIN -- SEE DOSE INSTRUCTIONS Last Admin: 04/07/18 10:22 Dose: 2 ea Ondansetron HCl (Zofran Inj) 4 mg IVP Q6H PRN PRN Reason: Nausea/Vomiting Last Admin: 04/09/18 17:50 Dose: 4 mg - Labs Labs: 04/10/18 08:09 04/10/18 08:09 PT 12.0 SECONDS (9.7-12.2) 04/10/18 08:09 INR 1.1 04/10/18 08:09 APTT 30 SECONDS (21-34) 04/10/18 08:09
--- NOTE | 2018-04-10 17:27 | CP.PCM.PN ---
Subjective - Date & Time of Evaluation Date of Evaluation: 04/10/18 Time of Evaluation: 09:00 - Subjective Subjective: events noted refusing pleurodesis iv rx reordered Objective - Vital Signs/Intake and Output Vital Signs (last 24 hours): Temp Pulse Resp BP Pulse Ox 97.8 F 95 H 20 110/48 L 100 04/10/18 15:00 04/10/18 15:00 04/10/18 15:00 04/10/18 15:00 04/10/18 15:00 Intake and Output: 04/10/18 04/10/18 06:59 18:59 Intake Total 1150 Output Total 997 Balance 153 - Medications Medications: Current Medications Acetaminophen (Tylenol 325mg Tab) 650 mg PO Q4 PRN PRN Reason: Pain, Mild (1-3) Last Admin: 04/08/18 22:41 Dose: 650 mg Ferrous Sulfate (Feosol) 325 mg PO TID [facility] Last Admin: 04/10/18 14:36 Dose: 325 mg Furosemide (Lasix) 20 mg PO DAILY [facility] Last Admin: 04/01/18 09:11 Dose: 20 mg Ceftriaxone Sodium 2 gm/ (Sodium Chloride) 100 mls @ 100 mls/hr IVPB DAILY [facility] PRN Reason: Protocol Last Admin: 04/10/18 10:27 Dose: 100 mls/hr Sodium Chloride (Sodium Chloride 0.9%) 1,000 mls @ 50 mls/hr IV .Q20H [facility] Last Admin: 04/10/18 04:00 Dose: 50 mls/hr Lidocaine (Lidoderm) 2 ea TD Q24H PRN PRN Reason: PAIN -- SEE DOSE INSTRUCTIONS Last Admin: 04/07/18 10:22 Dose: 2 ea Ondansetron HCl (Zofran Inj) 4 mg IVP Q6H PRN PRN Reason: Nausea/Vomiting Last Admin: 04/09/18 17:50 Dose: 4 mg - Labs Labs: 04/10/18 08:09 04/10/18 08:09 PT 12.0 SECONDS (9.7-12.2) 04/10/18 08:09 INR 1.1 04/10/18 08:09 APTT 30 SECONDS (21-34) 04/10/18 08:09 - Constitutional Appears: Non-toxic, Cachectic, Chronically Ill - Head Exam Head Exam: NORMOCEPHALIC - Eye Exam Eye Exam: PERRL - ENT Exam ENT Exam: Mucous Membranes Dry - Neck Exam Neck Exam: absent: Lymphadenopathy - Respiratory Exam Respiratory Exam: Decreased Breath Sounds - Cardiovascular Exam Cardiovascular Exam: REGULAR RHYTHM - GI/Abdominal Exam GI & Abdominal Exam: Distended, Soft - Rectal Exam Rectal Exam: Deferred - Exam Exam: NORMAL INSPECTION - Extremities Exam Extremities Exam: absent: Pedal Edema - Back Exam Back Exam: absent: CVA tenderness (L), CVA tenderness (R) Assessment and Plan (1) Anemia Status: Acute (2) Pneumonia Status: Acute (3) Lower GI bleeding Status: Resolved (4) Mass in rectum Status: Acute (5) Rectal adenocarcinoma Status: Acute (6) Endocarditis Status: Acute
--- NOTE | 2018-04-10 18:17 | CP.PCM.PN ---
Subjective - Date & Time of Evaluation Date of Evaluation: 04/10/18 Time of Evaluation: 09:20 - Subjective Subjective: patient seen and examined No shortness of breath Both pigtail catheter draining fluid Afebrile Objective - Vital Signs/Intake and Output Vital Signs (last 24 hours): Temp Pulse Resp BP Pulse Ox 97.8 F 95 H 20 110/48 L 100 04/10/18 15:00 04/10/18 15:00 04/10/18 15:00 04/10/18 15:00 04/10/18 15:00 Intake and Output: 04/10/18 04/10/18 06:59 18:59 Intake Total 1150 Output Total 997 Balance 153 - Medications Medications: Current Medications Acetaminophen (Tylenol 325mg Tab) 650 mg PO Q4 PRN PRN Reason: Pain, Mild (1-3) Last Admin: 04/08/18 22:41 Dose: 650 mg Ferrous Sulfate (Feosol) 325 mg PO TID [facility] Last Admin: 04/10/18 14:36 Dose: 325 mg Furosemide (Lasix) 20 mg PO DAILY [facility] Last Admin: 04/01/18 09:11 Dose: 20 mg Ceftriaxone Sodium 2 gm/ (Sodium Chloride) 100 mls @ 100 mls/hr IVPB DAILY [facility] PRN Reason: Protocol Last Admin: 04/10/18 10:27 Dose: 100 mls/hr Sodium Chloride (Sodium Chloride 0.9%) 1,000 mls @ 50 mls/hr IV .Q20H [facility] Last Admin: 04/10/18 04:00 Dose: 50 mls/hr Lidocaine (Lidoderm) 2 ea TD Q24H PRN PRN Reason: PAIN -- SEE DOSE INSTRUCTIONS Last Admin: 04/07/18 10:22 Dose: 2 ea Ondansetron HCl (Zofran Inj) 4 mg IVP Q6H PRN PRN Reason: Nausea/Vomiting Last Admin: 04/09/18 17:50 Dose: 4 mg - Labs Labs: 04/10/18 08:09 04/10/18 08:09 PT 12.0 SECONDS (9.7-12.2) 04/10/18 08:09 INR 1.1 04/10/18 08:09 APTT 30 SECONDS (21-34) 04/10/18 08:09 - Head Exam Head Exam: ATRAUMATIC, NORMOCEPHALIC - ENT Exam ENT Exam: Mucous Membranes Moist - Neck Exam Neck Exam: Normal Inspection - Respiratory Exam Respiratory Exam: Decreased Breath Sounds Assessment and Plan (1) Bilateral pleural effusion Assessment & Plan: pleurodesis pending family and patient decision continue antibiotics Status: Acute (2) Lung nodule < 6cm on CT Status: Acute
[2018-04-10 22:58] LABS: SQUAMOUS EPITHIAL < 1 /hpf (0-5); URINE BACTERIA RARE (<OCC); URINE BILIRUBIN NEGATIVE (NEGATIVE); URINE BLOOD 1+ (NEGATIVE); URINE CLARITY Hazy (Clear); URINE COLOR Yellow (YELLOW); URINE GLUCOSE (UA) NORMAL (Normal); URINE LEUKOCYTE ESTERASE NEG Leu/uL (Negative); URINE PROTEIN NEGATIVE (NEGATIVE); URINE URIC ACID CRYSTALS RARE /hpf (<OCC); URINE UROBILINOGEN NORMAL mg/dL (0.2-1.0)
--- NOTE | 2018-04-10 23:51 | CP.PCM.PN ---
Subjective - Date & Time of Evaluation Date of Evaluation: 04/10/18 Time of Evaluation: 20:45 - Subjective Subjective: Patient very weal, with poor appetite and mild rectal bleeding. Bilateral chest tubes still draining a large amount of fluid. Patient and his family not ready to consent Pleurodesis. Objective - Vital Signs/Intake and Output Vital Signs (last 24 hours): Temp Pulse Resp BP Pulse Ox 97.8 F 95 H 20 110/48 L 100 04/10/18 15:00 04/10/18 15:00 04/10/18 15:00 04/10/18 15:00 04/10/18 15:00 Intake and Output: 04/10/18 04/11/18 18:59 06:59 Intake Total 400 Output Total 165 Balance 235 - Medications Medications: Current Medications Acetaminophen (Tylenol 325mg Tab) 650 mg PO Q4 PRN PRN Reason: Pain, Mild (1-3) Last Admin: 04/08/18 22:41 Dose: 650 mg Ferrous Sulfate (Feosol) 325 mg PO TID [facility] Last Admin: 04/10/18 18:15 Dose: 325 mg Furosemide (Lasix) 20 mg PO DAILY [facility] Last Admin: 04/01/18 09:11 Dose: 20 mg Ceftriaxone Sodium 2 gm/ (Sodium Chloride) 100 mls @ 100 mls/hr IVPB DAILY [facility] PRN Reason: Protocol Last Admin: 04/10/18 10:27 Dose: 100 mls/hr Sodium Chloride (Sodium Chloride 0.9%) 1,000 mls @ 50 mls/hr IV .Q20H [facility] Last Admin: 04/10/18 23:09 Dose: 50 mls/hr Lidocaine (Lidoderm) 2 ea TD Q24H PRN PRN Reason: PAIN -- SEE DOSE INSTRUCTIONS Last Admin: 04/07/18 10:22 Dose: 2 ea Ondansetron HCl (Zofran Inj) 4 mg IVP Q6H PRN PRN Reason: Nausea/Vomiting Last Admin: 04/09/18 17:50 Dose: 4 mg Pantoprazole Sodium (Protonix Ec Tab) 40 mg PO DAILY [facility] - Labs Labs: 04/10/18 08:09 04/10/18 08:09 PT 12.0 SECONDS (9.7-12.2) 04/10/18 08:09 INR 1.1 04/10/18 08:09 APTT 30 SECONDS (21-34) 04/10/18 08:09 - Constitutional Appears: No Acute Distress, Cachectic, Chronically Ill - Head Exam Head Exam: NORMAL INSPECTION - Eye Exam Eye Exam: Normal appearance Pupil Exam: NORMAL ACCOMODATION - ENT Exam ENT Exam: Normal Exam - Neck Exam Neck Exam: Normal Inspection - Respiratory Exam Additional comments: Rhonchi bibasilarly. - Cardiovascular Exam Cardiovascular Exam: REGULAR RHYTHM - GI/Abdominal Exam GI & Abdominal Exam: Soft, Normal Bowel Sounds - Extremities Exam Extremities Exam: Normal Inspection - Back Exam Back Exam: NORMAL INSPECTION - Neurological Exam Neurological Exam: Alert, Awake, Oriented x3 - Psychiatric Exam Psychiatric exam: Anxious - Skin Skin Exam: Dry, Intact Assessment and Plan (1) Lower GI bleeding Assessment & Plan: Still with intermittent mild rectal bleeding. Status: Resolved (2) Anemia Status: Acute (3) Pneumonia Assessment & Plan: On IV antibiotic. Status: Acute (4) Hyperkalemia Status: Resolved (5) Hyponatremia Status: Resolved (6) Acute diastolic (congestive) heart failure Status: Resolved (7) Acute bacterial endocarditis Assessment & Plan: On IV Rocephin. Status: Acute (8) Acute non-ST elevation myocardial infarction (NSTEMI) Status: Acute (9) Bilateral pleural effusion Assessment & Plan: Bilateral chest tubes still draining a large amount of pleural fluid. Patient and his family did not consent to a pleurodesis. Status: Acute
[2018-04-11] MEDS: cefTRIAXone 2 GM in Sodium Chloride 0.9% 100 ML IVPB SCH (09:25)
[2018-04-11] MEDS: Pantoprazole 40 mg EC Tab PO SCH (09:25)
--- NOTE | 2018-04-11 12:24 | CP.PCM.PN ---
Subjective - Date & Time of Evaluation Date of Evaluation: 04/11/18 Time of Evaluation: 07:20 - Subjective Subjective: patient seen and examined Complaining of dyspnea on minimal exertion Pigtail catheters draining fluid Pending patient and family decision for pleurodesis Continue antibiotics Followup chest x-ray Objective - Vital Signs/Intake and Output Vital Signs (last 24 hours): Temp Pulse Resp BP Pulse Ox 97.5 F L 92 H 20 103/36 L 100 04/11/18 07:10 04/11/18 07:39 04/11/18 07:10 04/11/18 07:10 04/11/18 07:10 Intake and Output: 04/11/18 04/11/18 06:59 18:59 Intake Total 650 Output Total 535 Balance 115 - Medications Medications: Current Medications Acetaminophen (Tylenol 325mg Tab) 650 mg PO Q4 PRN PRN Reason: Pain, Mild (1-3) Last Admin: 04/08/18 22:41 Dose: 650 mg Ferrous Sulfate (Feosol) 325 mg PO TID [facility] Last Admin: 04/11/18 09:25 Dose: 325 mg Furosemide (Lasix) 20 mg PO DAILY [facility] Last Admin: 04/01/18 09:11 Dose: 20 mg Ceftriaxone Sodium 2 gm/ (Sodium Chloride) 100 mls @ 100 mls/hr IVPB DAILY [facility] PRN Reason: Protocol Last Admin: 04/11/18 09:25 Dose: 100 mls/hr Lidocaine (Lidoderm) 2 ea TD Q24H PRN PRN Reason: PAIN -- SEE DOSE INSTRUCTIONS Last Admin: 04/07/18 10:22 Dose: 2 ea Ondansetron HCl (Zofran Inj) 4 mg IVP Q6H PRN PRN Reason: Nausea/Vomiting Last Admin: 04/09/18 17:50 Dose: 4 mg Pantoprazole Sodium (Protonix Ec Tab) 40 mg PO DAILY [facility] Last Admin: 04/11/18 09:25 Dose: 40 mg - Labs Labs: 04/10/18 08:09 04/10/18 08:09 PT 12.0 SECONDS (9.7-12.2) 04/10/18 08:09 INR 1.1 04/10/18 08:09 APTT 30 SECONDS (21-34) 04/10/18 08:09 Assessment and Plan (1) Bilateral pleural effusion Status: Acute (2) Lung nodule < 6cm on CT Status: Acute
--- NOTE | 2018-04-11 14:49 | CP.PCM.PN ---
Subjective - Date & Time of Evaluation Date of Evaluation: 04/11/18 Time of Evaluation: 14:46 - Subjective Subjective: Very dyspneic c/o orthopnea Refusing pleuradesis pleural vinestuc=[id number] Has increased rhonchi bibasilar Na stable 131 CXR is to be done; not available now Objective - Vital Signs/Intake and Output Vital Signs (last 24 hours): Temp Pulse Resp BP Pulse Ox 97.5 F L 92 H 20 103/36 L 100 04/11/18 07:10 04/11/18 07:39 04/11/18 07:10 04/11/18 07:10 04/11/18 07:10 Intake and Output: 04/11/18 04/11/18 06:59 18:59 Intake Total 650 Output Total 535 Balance 115 - Medications Medications: Current Medications Acetaminophen (Tylenol 325mg Tab) 650 mg PO Q4 PRN PRN Reason: Pain, Mild (1-3) Last Admin: 04/08/18 22:41 Dose: 650 mg Ferrous Sulfate (Feosol) 325 mg PO TID [facility] Last Admin: 04/11/18 13:08 Dose: 325 mg Furosemide (Lasix) 20 mg PO DAILY [facility] Last Admin: 04/01/18 09:11 Dose: 20 mg Ceftriaxone Sodium 2 gm/ (Sodium Chloride) 100 mls @ 100 mls/hr IVPB DAILY [facility] PRN Reason: Protocol Last Admin: 04/11/18 09:25 Dose: 100 mls/hr Lidocaine (Lidoderm) 2 ea TD Q24H PRN PRN Reason: PAIN -- SEE DOSE INSTRUCTIONS Last Admin: 04/07/18 10:22 Dose: 2 ea Ondansetron HCl (Zofran Inj) 4 mg IVP Q6H PRN PRN Reason: Nausea/Vomiting Last Admin: 04/09/18 17:50 Dose: 4 mg Pantoprazole Sodium (Protonix Ec Tab) 40 mg PO DAILY [facility] Last Admin: 04/11/18 09:25 Dose: 40 mg - Labs Labs: 04/10/18 08:09 04/10/18 08:09 PT 12.0 SECONDS (9.7-12.2) 04/10/18 08:09 INR 1.1 04/10/18 08:09 APTT 30 SECONDS (21-34) 04/10/18 08:09 - Constitutional Appears: Confused, Chronically Ill - Head Exam Head Exam: ATRAUMATIC, NORMAL INSPECTION - Eye Exam Eye Exam: EOMI, Normal appearance - Respiratory Exam Respiratory Exam: Rhonchi, Respiratory Distress - Cardiovascular Exam Cardiovascular Exam: REGULAR RHYTHM, +S1 - GI/Abdominal Exam GI & Abdominal Exam: Soft. absent: Tenderness - Extremities Exam Extremities Exam: Normal Inspection. absent: Tenderness - Neurological Exam Neurological Exam: Altered - Skin Skin Exam: Dry, Warm Assessment and Plan (1) Rectal cancer Status: Acute (2) Pleural effusion Status: Acute (3) Hyponatremia Status: Acute (4) Acute non-ST elevation myocardial infarction (NSTEMI) Status: Acute (5) Rectal adenocarcinoma Status: Acute - Assessment and Plan (Free Text) Plan: Stop Iv fluids CXR follow up repeat chemistries Trial IV lasix Encourage pleuradesis
--- NOTE | 2018-04-11 17:08 | CP.PCM.PN ---
Subjective - Date & Time of Evaluation Date of Evaluation: 04/11/18 Time of Evaluation: 17:03 - Subjective Subjective: The patient remains very weak, dyspneic, still with draining chest tubes, apparently the patient is not agreeable to a pleurodesis. Nursing staff reporting dark stool mixed with blood. The Hgb remains stable for the past few days, but may need cautious transfusion if the Hgb drops( developed, SOB and RR post transfusion). Radiation not an option as long as the patient has chest tubes. Objective - Vital Signs/Intake and Output Vital Signs (last 24 hours): Temp Pulse Resp BP Pulse Ox 98.5 F 96 H 20 94/37 L 100 04/11/18 15:00 04/11/18 15:00 04/11/18 15:00 04/11/18 15:31 04/11/18 15:00 Intake and Output: 04/11/18 04/11/18 06:59 18:59 Intake Total 650 350 Output Total 535 735 Balance 115 -385 - Medications Medications: Current Medications Acetaminophen (Tylenol 325mg Tab) 650 mg PO Q4 PRN PRN Reason: Pain, Mild (1-3) Last Admin: 04/08/18 22:41 Dose: 650 mg Ferrous Sulfate (Feosol) 325 mg PO TID [facility] Last Admin: 04/11/18 13:08 Dose: 325 mg Furosemide (Lasix) 40 mg IVP DAILY [facility] Last Admin: 04/11/18 15:31 Dose: Not Given Ceftriaxone Sodium 2 gm/ (Sodium Chloride) 100 mls @ 100 mls/hr IVPB DAILY [facility] PRN Reason: Protocol Last Admin: 04/11/18 09:25 Dose: 100 mls/hr Lidocaine (Lidoderm) 2 ea TD Q24H PRN PRN Reason: PAIN -- SEE DOSE INSTRUCTIONS Last Admin: 04/07/18 10:22 Dose: 2 ea Ondansetron HCl (Zofran Inj) 4 mg IVP Q6H PRN PRN Reason: Nausea/Vomiting Last Admin: 04/09/18 17:50 Dose: 4 mg Pantoprazole Sodium (Protonix Ec Tab) 40 mg PO DAILY [facility] Last Admin: 04/11/18 09:25 Dose: 40 mg - Labs Labs: 04/10/18 08:09 04/10/18 08:09 PT 12.0 SECONDS (9.7-12.2) 04/10/18 08:09 INR 1.1 04/10/18 08:09 APTT 30 SECONDS (21-34) 04/10/18 08:09 Assessment and Plan (1) Rectal adenocarcinoma Status: Acute
--- NOTE | 2018-04-11 23:33 | CP.PCM.PN ---
Subjective - Date & Time of Evaluation Date of Evaluation: 04/11/18 Time of Evaluation: 19:45 - Subjective Subjective: Patient very weak, with poor appetite.Afebrile. Bilateral chest tube still draining a large amount of fluid, Patient and his family still undecided about pleurodesis. Objective - Vital Signs/Intake and Output Vital Signs (last 24 hours): Temp Pulse Resp BP Pulse Ox 98.5 F 96 H 20 94/37 L 100 04/11/18 15:00 04/11/18 15:00 04/11/18 15:00 04/11/18 15:31 04/11/18 15:00 Intake and Output: 04/11/18 04/12/18 18:59 06:59 Intake Total 350 Output Total 735 Balance -385 - Medications Medications: Current Medications Acetaminophen (Tylenol 325mg Tab) 650 mg PO Q4 PRN PRN Reason: Pain, Mild (1-3) Last Admin: 04/08/18 22:41 Dose: 650 mg Furosemide (Lasix) 40 mg IVP DAILY [facility] BEDS AT [facility] Last Admin: 04/11/18 15:31 Dose: Not Given Ceftriaxone Sodium 2 gm/ (Sodium Chloride) 100 mls @ 100 mls/hr IVPB DAILY [facility] PRN Reason: Protocol Last Admin: 04/11/18 09:25 Dose: 100 mls/hr Lidocaine (Lidoderm) 2 ea TD Q24H PRN PRN Reason: PAIN -- SEE DOSE INSTRUCTIONS Last Admin: 04/07/18 10:22 Dose: 2 ea Ondansetron HCl (Zofran Inj) 4 mg IVP Q6H PRN PRN Reason: Nausea/Vomiting Last Admin: 04/09/18 17:50 Dose: 4 mg Pantoprazole Sodium (Protonix Ec Tab) 40 mg PO DAILY [facility] 234 BEDS AT [facility] Last Admin: 04/11/18 09:25 Dose: 40 mg - Labs Labs: 04/10/18 08:09 04/10/18 08:09 PT 12.0 SECONDS (9.7-12.2) 04/10/18 08:09 INR 1.1 04/10/18 08:09 APTT 30 SECONDS (21-34) 04/10/18 08:09 - Constitutional Appears: No Acute Distress, Cachectic, Chronically Ill - Head Exam Head Exam: NORMAL INSPECTION - Eye Exam 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 - ENT Exam ENT Exam: Normal Exam - Neck Exam Neck Exam: Normal Inspection - Respiratory Exam Respiratory Exam: Rhonchi - Cardiovascular Exam Cardiovascular Exam: REGULAR RHYTHM - GI/Abdominal Exam GI & Abdominal Exam: Soft, Normal Bowel Sounds - Rectal Exam Rectal Exam: Deferred - Extremities Exam Extremities Exam: Normal Inspection - Back Exam Back Exam: NORMAL INSPECTION - Neurological Exam Neurological Exam: Alert, Awake, Oriented x3 - Psychiatric Exam Psychiatric exam: Anxious - Skin Skin Exam: Dry, Normal Color, Warm Assessment and Plan (1) Lower GI bleeding Assessment & Plan: Occasional mild rectal bleeding. Status: Resolved (2) Anemia Status: Acute (3) Pneumonia Status: Acute (4) Hyperkalemia Status: Resolved (5) Hyponatremia Status: Resolved (6) Acute diastolic (congestive) heart failure Status: Resolved (7) Acute bacterial endocarditis Assessment & Plan: On IV Rocephin Status: Acute (8) Acute non-ST elevation myocardial infarction (NSTEMI) Status: Acute (9) Bilateral pleural effusion Assessment & Plan: Awaiting patient and his family decisin about pleurodesis. Status: Acute
[2018-04-12] MEDS ORDERED: Sodium Chloride 0.9% 250 ML IV ONE ×3 (02:07→03:32)
[2018-04-12 07:41] LABS: ALB/GLOB RATIO 0.9 (1.0-2.1); ALBUMIN 2.5 g/dL (3.5-5.0); ALT/SGPT 23 U/L (21-72); AST/SGOT 20 U/L (17-59); BLOOD UREA NITROGEN 40 mg/dL (9-20); CALCIUM 7.9 mg/dl (8.6-10.4); GFR NON-AFRICAN AMERICAN > 60
[2018-04-12] MEDS: Pantoprazole 40 mg EC Tab PO SCH (10:35)
[2018-04-12] MEDS: cefTRIAXone 2 GM in Sodium Chloride 0.9% 100 ML IVPB SCH (10:36)
--- NOTE | 2018-04-12 10:53 | CP.PCM.PN ---
Subjective - Date & Time of Evaluation Date of Evaluation: 04/12/18 Time of Evaluation: 10:30 - Subjective Subjective: patient seen and examined Dyspnea on minimal exertion Rectal bleed with stable hemoglobin has not decided yet for pleurodesis pigtail catheters draining fluid Followup chest x-ray Improve nutritional status Objective - Vital Signs/Intake and Output Vital Signs (last 24 hours): Temp Pulse Resp BP Pulse Ox 97.3 F L 92 H 20 99/45 L 99 04/12/18 07:20 04/12/18 07:20 04/12/18 07:20 04/12/18 10:36 04/12/18 07:20 Intake and Output: 04/12/18 04/12/18 06:59 18:59 Intake Total 150 Output Total 970 Balance -820 - Medications Medications: Current Medications Acetaminophen (Tylenol 325mg Tab) 650 mg PO Q4 PRN PRN Reason: Pain, Mild (1-3) Last Admin: 04/08/18 22:41 Dose: 650 mg Furosemide (Lasix) 40 mg IVP DAILY [facility] Last Admin: 04/12/18 10:36 Dose: Not Given Ceftriaxone Sodium 2 gm/ (Sodium Chloride) 100 mls @ 100 mls/hr IVPB DAILY [facility] PRN Reason: Protocol Last Admin: 04/12/18 10:36 Dose: 100 mls/hr Lidocaine (Lidoderm) 2 ea TD Q24H PRN PRN Reason: PAIN -- SEE DOSE INSTRUCTIONS Last Admin: 04/07/18 10:22 Dose: 2 ea Ondansetron HCl (Zofran Inj) 4 mg IVP Q6H PRN PRN Reason: Nausea/Vomiting Last Admin: 04/09/18 17:50 Dose: 4 mg Pantoprazole Sodium (Protonix Ec Tab) 40 mg PO DAILY [facility] Last Admin: 04/12/18 10:35 Dose: 40 mg - Labs Labs: 04/10/18 08:09 04/12/18 07:09 PT 12.0 SECONDS (9.7-12.2) 04/10/18 08:09 INR 1.1 04/10/18 08:09 APTT 30 SECONDS (21-34) 04/10/18 08:09 Assessment and Plan (1) Bilateral pleural effusion Status: Acute (2) Lung nodule < 6cm on CT Status: Acute
--- NOTE | 2018-04-12 11:12 | CP.PCM.PN ---
Subjective - Date & Time of Evaluation Date of Evaluation: 04/12/18 Time of Evaluation: 11:09 - Subjective Subjective: confused weak dyspneic while talking wearing nasal cannula no decision regarding pleurodesis unable to obtain ROS due to clinical situation Objective - Vital Signs/Intake and Output Vital Signs (last 24 hours): Temp Pulse Resp BP Pulse Ox 97.3 F L 92 H 20 99/45 L 99 04/12/18 07:20 04/12/18 07:20 04/12/18 07:20 04/12/18 10:36 04/12/18 07:20 Intake and Output: 04/12/18 04/12/18 06:59 18:59 Intake Total 150 Output Total 970 Balance -820 - Medications Medications: Current Medications Acetaminophen (Tylenol 325mg Tab) 650 mg PO Q4 PRN PRN Reason: Pain, Mild (1-3) Last Admin: 04/08/18 22:41 Dose: 650 mg Furosemide (Lasix) 40 mg IVP DAILY [facility] Last Admin: 04/12/18 10:36 Dose: Not Given Ceftriaxone Sodium 2 gm/ (Sodium Chloride) 100 mls @ 100 mls/hr IVPB DAILY [facility] PRN Reason: Protocol Last Admin: 04/12/18 10:36 Dose: 100 mls/hr Lidocaine (Lidoderm) 2 ea TD Q24H PRN PRN Reason: PAIN -- SEE DOSE INSTRUCTIONS Last Admin: 04/07/18 10:22 Dose: 2 ea Ondansetron HCl (Zofran Inj) 4 mg IVP Q6H PRN PRN Reason: Nausea/Vomiting Last Admin: 04/09/18 17:50 Dose: 4 mg Pantoprazole Sodium (Protonix Ec Tab) 40 mg PO DAILY [facility] Last Admin: 04/12/18 10:35 Dose: 40 mg - Labs Labs: 04/10/18 08:09 04/12/18 07:09 PT 12.0 SECONDS (9.7-12.2) 04/10/18 08:09 INR 1.1 04/10/18 08:09 APTT 30 SECONDS (21-34) 04/10/18 08:09 - Constitutional Appears: Cachectic, Chronically Ill - Head Exam Head Exam: ATRAUMATIC Additional comments: mandibular swelling - Eye Exam Eye Exam: EOMI, Normal appearance - ENT Exam ENT Exam: Mucous Membranes Moist - Neck Exam Neck Exam: Full ROM. absent: Lymphadenopathy - Respiratory Exam Respiratory Exam: Decreased Breath Sounds. absent: Accessory Muscle Use - GI/Abdominal Exam GI & Abdominal Exam: Soft. absent: Tenderness - Extremities Exam Extremities Exam: absent: Pedal Edema Assessment and Plan - Assessment and Plan (Free Text) Assessment: lung cancer hyponatremia, stable increased dyspnea, pleural effusions chest tube in receiving lasix, but BP too low cuurently will continue to monitor poor prognosis
--- NOTE | 2018-04-12 23:02 | CP.PCM.PN ---
Subjective - Date & Time of Evaluation Date of Evaluation: 04/12/18 Time of Evaluation: 16:30 - Subjective Subjective: Patient still very weak, with poor appetite, occasional mild rectal bleeding, Chest tubes still draining moderate amount of fluid. Patient and family undecided about pleurodesis. Objective - Vital Signs/Intake and Output Vital Signs (last 24 hours): Temp Pulse Resp BP Pulse Ox 98.4 F 98 H 20 97/37 L 97 04/12/18 15:00 04/12/18 16:00 04/12/18 15:00 04/12/18 15:00 04/12/18 15:00 Intake and Output: 04/12/18 04/13/18 18:59 06:59 Intake Total 500 240 Output Total 330 130 Balance 170 110 - Medications Medications: Current Medications Acetaminophen (Tylenol 325mg Tab) 650 mg PO Q4 PRN PRN Reason: Pain, Mild (1-3) Last Admin: 04/08/18 22:41 Dose: 650 mg Furosemide (Lasix) 40 mg IVP DAILY [facility] Last Admin: 04/12/18 10:36 Dose: Not Given Ceftriaxone Sodium 2 gm/ (Sodium Chloride) 100 mls @ 100 mls/hr IVPB DAILY [facility] PRN Reason: Protocol Last Admin: 04/12/18 10:36 Dose: 100 mls/hr Lidocaine (Lidoderm) 2 ea TD Q24H PRN PRN Reason: PAIN -- SEE DOSE INSTRUCTIONS Last Admin: 04/07/18 10:22 Dose: 2 ea Ondansetron HCl (Zofran Inj) 4 mg IVP Q6H PRN PRN Reason: Nausea/Vomiting Last Admin: 04/09/18 17:50 Dose: 4 mg Pantoprazole Sodium (Protonix Ec Tab) 40 mg PO DAILY [facility] Last Admin: 04/12/18 10:35 Dose: 40 mg - Labs Labs: 04/10/18 08:09 04/12/18 07:09 PT 12.0 SECONDS (9.7-12.2) 04/10/18 08:09 INR 1.1 04/10/18 08:09 APTT 30 SECONDS (21-34) 04/10/18 08:09 - Constitutional Appears: No Acute Distress, Cachectic, Chronically Ill - Head Exam Head Exam: NORMOCEPHALIC - Eye Exam Eye Exam: Normal appearance - ENT Exam ENT Exam: Normal Exam - Neck Exam Neck Exam: Normal Inspection - Respiratory Exam Respiratory Exam: Rhonchi - Cardiovascular Exam Cardiovascular Exam: REGULAR RHYTHM - GI/Abdominal Exam GI & Abdominal Exam: Soft, Normal Bowel Sounds - Extremities Exam Extremities Exam: Normal Inspection - Back Exam Back Exam: NORMAL INSPECTION - Neurological Exam Neurological Exam: Alert, Awake, Oriented x3 - Psychiatric Exam Psychiatric exam: Anxious - Skin Skin Exam: Dry, Intact, Warm Assessment and Plan (1) Lower GI bleeding Status: Resolved (2) Anemia Status: Acute (3) Pneumonia Status: Acute (4) Hyperkalemia Status: Resolved (5) Hyponatremia Status: Resolved (6) Acute diastolic (congestive) heart failure Status: Resolved (7) Acute bacterial endocarditis Status: Acute (8) Acute non-ST elevation myocardial infarction (NSTEMI) Status: Acute (9) Bilateral pleural effusion Status: Acute
[2018-04-13 09:01] LABS: ALB/GLOB RATIO 0.8 (1.0-2.1); ALBUMIN 2.6 g/dL (3.5-5.0); ALT/SGPT 21 U/L (21-72); AST/SGOT 25 U/L (17-59); BLOOD UREA NITROGEN 39 mg/dL (9-20); CALCIUM 8.2 mg/dl (8.6-10.4); GFR NON-AFRICAN AMERICAN > 60
[2018-04-13] MEDS: cefTRIAXone 2 GM in Sodium Chloride 0.9% 100 ML IVPB SCH (10:45)
[2018-04-13] MEDS: Pantoprazole 40 mg EC Tab PO SCH (10:55)
--- NOTE | 2018-04-13 13:40 | CP.PCM.PN ---
Subjective - Date & Time of Evaluation Date of Evaluation: 04/13/18 Time of Evaluation: 13:38 - Subjective Subjective: Pulmonary Follow up, Covering Dr Alarcon The patient was Seen/interviewed and examined by me at the bedside, Medical records reviewed and Management issues were discussed and formulated with the house staff. Events reviewed Patient awake, AAO x3 More comfortable, NAD No chest pain, Less SOB Afebrile Pt with Bilateral pleural effusions S/P Bilateral chest tubes in place with large amount of serous output Patient denies any fever/chills or SOB and the only complain is reproducible mild CP at the site of chest tube insertion. Otherwise pain well controlled Chest tube was taken off suction L CT output 820 cc/Last [address] output 50 cc/Last 24 hours Pt's current status is discussed with pt / pt's family Discussed with them about the risks and benefits of pleurodesis, We reviewed the rationale, risks, benefits, treatment plans and alternatives He is considering pleurodesis Will order a follow up CXR in AM Objective - Vital Signs/Intake and Output Vital Signs (last 24 hours): Temp Pulse Resp BP Pulse Ox 97.5 F L 95 H 18 105/38 L 100 04/13/18 07:00 04/13/18 07:00 04/13/18 07:00 04/13/18 10:54 04/13/18 07:00 Intake and Output: 04/13/18 04/13/18 06:59 18:59 Intake Total 240 Output Total 890 Balance -650 - Medications Medications: Current Medications Acetaminophen (Tylenol 325mg Tab) 650 mg PO Q4 PRN PRN Reason: Pain, Mild (1-3) Last Admin: 04/08/18 22:41 Dose: 650 mg Furosemide (Lasix) 40 mg IVP DAILY [facility] Last Admin: 04/13/18 10:54 Dose: 40 mg Ceftriaxone Sodium 2 gm/ (Sodium Chloride) 100 mls @ 100 mls/hr IVPB DAILY [facility] PRN Reason: Protocol Last Admin: 04/13/18 10:45 Dose: 100 mls/hr Lidocaine (Lidoderm) 2 ea TD Q24H PRN PRN Reason: PAIN -- SEE DOSE INSTRUCTIONS Last Admin: 04/07/18 10:22 Dose: 2 ea Ondansetron HCl (Zofran Inj) 4 mg IVP Q6H PRN PRN Reason: Nausea/Vomiting Last Admin: 04/09/18 17:50 Dose: 4 mg Pantoprazole Sodium (Protonix Ec Tab) 40 mg PO DAILY [facility] Last Admin: 04/13/18 10:55 Dose: 40 mg - Labs Labs: 04/10/18 08:09 04/13/18 08:27 PT 12.0 SECONDS (9.7-12.2) 04/10/18 08:09 INR 1.1 04/10/18 08:09 APTT 30 SECONDS (21-34) 04/10/18 08:09 - Constitutional Appears: Well, No Acute Distress - Head Exam Head Exam: ATRAUMATIC, NORMAL INSPECTION - Neck Exam Neck Exam: Full ROM - Respiratory Exam Respiratory Exam: Chest Wall Tenderness (At the site of chest tube), Decreased Breath Sounds, Rhonchi. absent: Accessory Muscle Use, Rales, Wheezes, Respiratory Distress - Cardiovascular Exam Cardiovascular Exam: absent: Bradycardia, Tachycardia - GI/Abdominal Exam GI & Abdominal Exam: Distended, Soft, Normal Bowel Sounds. absent: Rigid, Tenderness - Extremities Exam Extremities Exam: Full ROM. absent: Calf Tenderness, Joint Swelling, Pedal Edema - Back Exam Back Exam: absent: CVA tenderness (L), CVA tenderness (R) - Neurological Exam Neurological Exam: Alert, Awake, Motor Sensory Deficit, Oriented x3. absent: Altered Assessment and Plan (1) Bilateral pleural effusion Status: Acute (2) Lung nodule < 6cm on CT Status: Acute (3) Hyponatremia Status: Acute (4) Pneumonia Status: Acute - Assessment and Plan (Free Text) Assessment: large bilateral pleural effusion S/P Bilateral chest tubes Etiology Likely combination of pneumonia, acute CHF, Malignancy is also possibility Cardiothoracic Consulted Patient is a candidate for pleurodesis if he agrees, other randall will remove Once drainage is <100ml in 24 hours Continue Suplemental Oxygen with 3L NC O2, saturation well Continue nebulizer treatment OOB to chair Encourage Incentive spirometer
--- NOTE | 2018-04-13 14:19 | CP.PCM.PN ---
Subjective - Date & Time of Evaluation Date of Evaluation: 04/13/18 Time of Evaluation: 09:00 - Subjective Subjective: chest tubes in place less rectal bleed IV rx renewed Objective - Vital Signs/Intake and Output Vital Signs (last 24 hours): Temp Pulse Resp BP Pulse Ox 97.5 F L 95 H 18 105/38 L 100 04/13/18 07:00 04/13/18 07:00 04/13/18 07:00 04/13/18 10:54 04/13/18 07:00 Intake and Output: 04/13/18 04/13/18 06:59 18:59 Intake Total 240 Output Total 890 Balance -650 - Medications Medications: Current Medications Acetaminophen (Tylenol 325mg Tab) 650 mg PO Q4 PRN PRN Reason: Pain, Mild (1-3) Last Admin: 04/08/18 22:41 Dose: 650 mg Furosemide (Lasix) 40 mg IVP DAILY [facility] Last Admin: 04/13/18 10:54 Dose: 40 mg Ceftriaxone Sodium 2 gm/ (Sodium Chloride) 100 mls @ 100 mls/hr IVPB DAILY [facility] PRN Reason: Protocol Last Admin: 04/13/18 10:45 Dose: 100 mls/hr Lidocaine (Lidoderm) 2 ea TD Q24H PRN PRN Reason: PAIN -- SEE DOSE INSTRUCTIONS Last Admin: 04/07/18 10:22 Dose: 2 ea Ondansetron HCl (Zofran Inj) 4 mg IVP Q6H PRN PRN Reason: Nausea/Vomiting Last Admin: 04/09/18 17:50 Dose: 4 mg Pantoprazole Sodium (Protonix Ec Tab) 40 mg PO DAILY [facility] Last Admin: 04/13/18 10:55 Dose: 40 mg - Labs Labs: 04/10/18 08:09 04/13/18 08:27 PT 12.0 SECONDS (9.7-12.2) 04/10/18 08:09 INR 1.1 04/10/18 08:09 APTT 30 SECONDS (21-34) 04/10/18 08:09 - Constitutional Appears: Non-toxic, Chronically Ill - Head Exam Head Exam: NORMOCEPHALIC - Eye Exam Eye Exam: PERRL - ENT Exam ENT Exam: Mucous Membranes Dry - Neck Exam Neck Exam: absent: Lymphadenopathy - Respiratory Exam Respiratory Exam: Decreased Breath Sounds - Cardiovascular Exam Cardiovascular Exam: REGULAR RHYTHM - GI/Abdominal Exam GI & Abdominal Exam: Distended - Rectal Exam Rectal Exam: Deferred - Exam Exam: NORMAL INSPECTION - Extremities Exam Extremities Exam: absent: Pedal Edema - Back Exam Back Exam: absent: CVA tenderness (L), CVA tenderness (R) - Neurological Exam Neurological Exam: Alert, Awake, Oriented x3 - Psychiatric Exam Psychiatric exam: Normal Mood - Skin Skin Exam: Dry Assessment and Plan (1) Anemia Status: Acute (2) Pneumonia Status: Acute (3) Lower GI bleeding Status: Resolved (4) Mass in rectum Status: Acute (5) Rectal adenocarcinoma Status: Acute (6) Endocarditis Status: Acute - Assessment and Plan (Free Text) Assessment: cont iv rx for 8 weeks needs pleurodesis- family undecided
[2018-04-14] MEDS: Lidocaine 5% Patch TD PRN (06:18)
[2018-04-14 08:02] LABS: ALBUMIN 2.7 g/dL (3.5-5.0); ALT/SGPT 29 U/L (21-72); AST/SGOT 22 U/L (17-59); BLOOD UREA NITROGEN 47 mg/dL (9-20); CALCIUM 8.2 mg/dl (8.6-10.4); GFR NON-AFRICAN AMERICAN > 60
--- NOTE | 2018-04-14 09:44 | RAD ---
Chest x-ray single frontal view History: Pleural effusion. Comparison: 04/06/2018 Findings: Biapical pleural thickening with upper lobe granulomatous changes. Diffuse increased interstitial lung markings. No gross pneumothorax or pleural effusion. Bilateral chest tubes in place. Calcification at the aortic knob. Degenerative changes in the spine and shoulders. Impression: Biapical pleural thickening with upper lobe granulomatous changes. Diffuse increased interstitial lung markings. No gross pneumothorax or pleural effusion. Bilateral chest tubes in place. Calcification at the aortic knob. Degenerative changes in the spine and shoulders.
[2018-04-14] MEDS: cefTRIAXone 2 GM in Sodium Chloride 0.9% 100 ML IVPB SCH (10:27)
[2018-04-14] MEDS: Pantoprazole 40 mg EC Tab PO SCH (10:29)
--- NOTE | 2018-04-14 11:12 | CP.PCM.PN ---
Subjective - Date & Time of Evaluation Date of Evaluation: 04/14/18 Time of Evaluation: 09:00 - Subjective Subjective: no fever Objective - Vital Signs/Intake and Output Vital Signs (last 24 hours): Temp Pulse Resp BP Pulse Ox 97.4 F L 93 H 18 97/37 L 100 04/14/18 07:00 04/14/18 07:00 04/14/18 07:00 04/14/18 07:00 04/14/18 07:00 Intake and Output: 04/14/18 04/14/18 06:59 18:59 Intake Total 480 Output Total 740 Balance -260 - Medications Medications: Current Medications Acetaminophen (Tylenol 325mg Tab) 650 mg PO Q4 PRN PRN Reason: Pain, Mild (1-3) Last Admin: 04/14/18 00:28 Dose: 650 mg Furosemide (Lasix) 40 mg IVP DAILY [facility] Last Admin: 04/13/18 10:54 Dose: 40 mg Ceftriaxone Sodium 2 gm/ (Sodium Chloride) 100 mls @ 100 mls/hr IVPB DAILY [facility] PRN Reason: Protocol Last Admin: 04/13/18 10:45 Dose: 100 mls/hr Lidocaine (Lidoderm) 2 ea TD Q24H PRN PRN Reason: PAIN -- SEE DOSE INSTRUCTIONS Last Admin: 04/14/18 06:18 Dose: 2 ea Ondansetron HCl (Zofran Inj) 4 mg IVP Q6H PRN PRN Reason: Nausea/Vomiting Last Admin: 04/09/18 17:50 Dose: 4 mg Pantoprazole Sodium (Protonix Ec Tab) 40 mg PO DAILY [facility] Last Admin: 04/13/18 10:55 Dose: 40 mg - Labs Labs: 04/10/18 08:09 04/14/18 07:37 PT 12.0 SECONDS (9.7-12.2) 04/10/18 08:09 INR 1.1 04/10/18 08:09 APTT 30 SECONDS (21-34) 04/10/18 08:09 - Constitutional Appears: Non-toxic, Chronically Ill - Head Exam Head Exam: NORMOCEPHALIC - Eye Exam Eye Exam: PERRL - ENT Exam ENT Exam: Mucous Membranes Dry - Neck Exam Neck Exam: absent: Lymphadenopathy - Respiratory Exam Respiratory Exam: Decreased Breath Sounds - Cardiovascular Exam Cardiovascular Exam: REGULAR RHYTHM - GI/Abdominal Exam GI & Abdominal Exam: Distended, Soft - Rectal Exam Rectal Exam: Deferred - Exam Exam: NORMAL INSPECTION Assessment and Plan (1) Anemia Status: Acute (2) Pneumonia Status: Resolved (3) Lower GI bleeding Status: Resolved (4) Mass in rectum Status: Acute (5) Rectal adenocarcinoma Status: Acute (6) Endocarditis Status: Acute - Assessment and Plan (Free Text) Assessment: iv rx renewed
--- NOTE | 2018-04-14 12:27 | CP.PCM.PN ---
Subjective - Date & Time of Evaluation Date of Evaluation: 04/14/18 Time of Evaluation: 12:25 - Subjective Subjective: Agreed for pleuradesis now Confused, appears as before Na 129- about same less rectal bleeding observed Objective - Vital Signs/Intake and Output Vital Signs (last 24 hours): Temp Pulse Resp BP Pulse Ox 97.4 F L 93 H 18 105/50 L 100 04/14/18 07:00 04/14/18 07:00 04/14/18 07:00 04/14/18 10:28 04/14/18 07:00 Intake and Output: 04/14/18 04/14/18 06:59 18:59 Intake Total 480 Output Total 740 Balance -260 - Medications Medications: Current Medications Acetaminophen (Tylenol 325mg Tab) 650 mg PO Q4 PRN PRN Reason: Pain, Mild (1-3) Last Admin: 04/14/18 00:28 Dose: 650 mg Furosemide (Lasix) 40 mg IVP DAILY [facility] Last Admin: 04/14/18 10:28 Dose: 40 mg Ceftriaxone Sodium 2 gm/ (Sodium Chloride) 100 mls @ 100 mls/hr IVPB DAILY [facility] PRN Reason: Protocol Last Admin: 04/14/18 10:27 Dose: 100 mls/hr Lidocaine (Lidoderm) 2 ea TD Q24H PRN PRN Reason: PAIN -- SEE DOSE INSTRUCTIONS Last Admin: 04/14/18 06:18 Dose: 2 ea Ondansetron HCl (Zofran Inj) 4 mg IVP Q6H PRN PRN Reason: Nausea/Vomiting Last Admin: 04/09/18 17:50 Dose: 4 mg Pantoprazole Sodium (Protonix Ec Tab) 40 mg PO DAILY [facility] Last Admin: 04/14/18 10:29 Dose: 40 mg - Labs Labs: 04/10/18 08:09 04/14/18 07:37 PT 12.0 SECONDS (9.7-12.2) 04/10/18 08:09 INR 1.1 04/10/18 08:09 APTT 30 SECONDS (21-34) 04/10/18 08:09 - Constitutional Appears: No Acute Distress, Confused, Cachectic, Chronically Ill - Head Exam Head Exam: ATRAUMATIC, NORMAL INSPECTION - Eye Exam Eye Exam: EOMI, Normal appearance - Neck Exam Neck Exam: Normal Inspection. absent: Tenderness - Respiratory Exam Respiratory Exam: Decreased Breath Sounds, Clear to Ausculation Bilateral - Cardiovascular Exam Cardiovascular Exam: REGULAR RHYTHM, +S1 - GI/Abdominal Exam GI & Abdominal Exam: Soft. absent: Tenderness - Extremities Exam Extremities Exam: Normal Inspection. absent: Tenderness - Neurological Exam Neurological Exam: Altered - Skin Skin Exam: Dry, Warm Assessment and Plan (1) Rectal cancer Status: Acute (2) Pleural effusion Status: Acute (3) Hyponatremia Status: Acute (4) Acute non-ST elevation myocardial infarction (NSTEMI) Status: Acute (5) Rectal adenocarcinoma Status: Acute - Assessment and Plan (Free Text) Plan: Lasix for now await pleuradesis follow up annabel
--- NOTE | 2018-04-14 15:01 | CP.PCM.PN ---
Subjective - Date & Time of Evaluation Date of Evaluation: 04/14/18 Time of Evaluation: 10:40 - Subjective Subjective: the patient seen and examined Patient is awake and responsive Bilateral catheters draining fluid Patient agreed for the procedure/pleurodesed is Case discussed with daughter and she is concerned about rectal bleed/cancer Objective - Vital Signs/Intake and Output Vital Signs (last 24 hours): Temp Pulse Resp BP Pulse Ox 97.4 F L 93 H 18 105/50 L 100 04/14/18 07:00 04/14/18 07:00 04/14/18 07:00 04/14/18 10:28 04/14/18 07:00 Intake and Output: 04/14/18 04/14/18 06:59 18:59 Intake Total 480 Output Total 740 Balance -260 - Medications Medications: Current Medications Acetaminophen (Tylenol 325mg Tab) 650 mg PO Q4 PRN PRN Reason: Pain, Mild (1-3) Last Admin: 04/14/18 00:28 Dose: 650 mg Furosemide (Lasix) 40 mg IVP DAILY [facility] Last Admin: 04/14/18 10:28 Dose: 40 mg Ceftriaxone Sodium 2 gm/ (Sodium Chloride) 100 mls @ 100 mls/hr IVPB DAILY [facility]AH PRN Reason: Protocol Last Admin: 04/14/18 10:27 Dose: 100 mls/hr Lidocaine (Lidoderm) 2 ea TD Q24H PRN PRN Reason: PAIN -- SEE DOSE INSTRUCTIONS Last Admin: 04/14/18 06:18 Dose: 2 ea Ondansetron HCl (Zofran Inj) 4 mg IVP Q6H PRN PRN Reason: Nausea/Vomiting Last Admin: 04/09/18 17:50 Dose: 4 mg Pantoprazole Sodium (Protonix Ec Tab) 40 mg PO DAILY [facility] Last Admin: 04/14/18 10:29 Dose: 40 mg - Labs Labs: 04/10/18 08:09 04/14/18 07:37 PT 12.0 SECONDS (9.7-12.2) 04/10/18 08:09 INR 1.1 04/10/18 08:09 APTT 30 SECONDS (21-34) 04/10/18 08:09 Assessment and Plan (1) Bilateral pleural effusion Status: Acute (2) Lung nodule < 6cm on CT Status: Acute
--- NOTE | 2018-04-15 00:25 | CP.PCM.PN ---
Subjective - Date & Time of Evaluation Date of Evaluation: 04/14/18 Time of Evaluation: 18:45 - Subjective Subjective: Patient weak, in no respiratory distress, afebrile, now consents to pleurodesis. Chest tubes still draining a large amount of fluid. CXR today did not show any pleural effusion, any infiltrate. Occasional rectal bleeding. Objective - Vital Signs/Intake and Output Vital Signs (last 24 hours): Temp Pulse Resp BP Pulse Ox 97.4 F L 99 H 18 113/45 L 100 04/14/18 07:00 04/14/18 15:00 04/14/18 15:00 04/14/18 15:00 04/14/18 15:00 Intake and Output: 04/14/18 04/15/18 18:59 06:59 Intake Total 100 100 Output Total 390 380 Balance -290 -280 - Medications Medications: Current Medications Acetaminophen (Tylenol 325mg Tab) 650 mg PO Q4 PRN PRN Reason: Pain, Mild (1-3) Last Admin: 04/14/18 00:28 Dose: 650 mg Furosemide (Lasix) 40 mg IVP DAILY [facility] Last Admin: 04/14/18 10:28 Dose: 40 mg Ceftriaxone Sodium 2 gm/ (Sodium Chloride) 100 mls @ 100 mls/hr IVPB DAILY [facility] PRN Reason: Protocol Last Admin: 04/14/18 10:27 Dose: 100 mls/hr Lidocaine (Lidoderm) 2 ea TD Q24H PRN PRN Reason: PAIN -- SEE DOSE INSTRUCTIONS Last Admin: 04/14/18 06:18 Dose: 2 ea Pantoprazole Sodium (Protonix Ec Tab) 40 mg PO DAILY [facility] Last Admin: 04/14/18 10:29 Dose: 40 mg - Labs Labs: 04/10/18 08:09 04/14/18 07:37 PT 12.0 SECONDS (9.7-12.2) 04/10/18 08:09 INR 1.1 04/10/18 08:09 APTT 30 SECONDS (21-34) 04/10/18 08:09 - Constitutional Appears: No Acute Distress, Cachectic, Chronically Ill - Head Exam Head Exam: NORMOCEPHALIC - ENT Exam ENT Exam: Normal Exam - Neck Exam Neck Exam: Normal Inspection - Respiratory Exam Respiratory Exam: Rhonchi - Cardiovascular Exam Cardiovascular Exam: REGULAR RHYTHM - GI/Abdominal Exam GI & Abdominal Exam: Soft, Normal Bowel Sounds - Extremities Exam Extremities Exam: Normal Inspection - Back Exam Back Exam: NORMAL INSPECTION - Neurological Exam Neurological Exam: Alert, Awake, Oriented x3 - Psychiatric Exam Psychiatric exam: Anxious, Depressed - Skin Skin Exam: Dry, Intact, Warm Assessment and Plan (1) Lower GI bleeding Status: Resolved (2) Anemia Status: Acute (3) Pneumonia Status: Resolved (4) Hyperkalemia Status: Resolved (5) Hyponatremia Assessment & Plan: Secondary to dehydration. Status: Resolved (6) Acute diastolic (congestive) heart failure Status: Resolved (7) Acute bacterial endocarditis Assessment & Plan: On Rocephin Status: Acute (8) Acute non-ST elevation myocardial infarction (NSTEMI) Assessment & Plan: Stable. Status: Acute (9) Bilateral pleural effusion Assessment & Plan: For pleurodesis. Status: Acute
[2018-04-15 07:59] LABS: ALB/GLOB RATIO 0.9 (1.0-2.1); ALBUMIN 2.8 g/dL (3.5-5.0); ALT/SGPT 23 U/L (21-72); AST/SGOT 34 U/L (17-59); BLOOD UREA NITROGEN 58 mg/dL (9-20); CALCIUM 8.4 mg/dl (8.6-10.4); GFR NON-AFRICAN AMERICAN > 60
[2018-04-15] MEDS: cefTRIAXone 2 GM in Sodium Chloride 0.9% 100 ML IVPB SCH (09:36)
[2018-04-15] MEDS: Pantoprazole 40 mg EC Tab PO SCH (09:36)
--- NOTE | 2018-04-15 11:07 | CP.PCM.PN ---
Subjective - Date & Time of Evaluation Date of Evaluation: 04/15/18 Time of Evaluation: 11:03 - Subjective Subjective: Still weak, but appears less confused Agrees for pleurdesis now No overt CHF on CXR Na sl worsening- [address]s still draining significantly Objective - Vital Signs/Intake and Output Vital Signs (last 24 hours): Temp Pulse Resp BP Pulse Ox 97.4 F L 89 20 115/50 L 100 04/15/18 07:00 04/15/18 08:21 04/15/18 07:00 04/15/18 09:36 04/15/18 07:00 Intake and Output: 04/15/18 04/15/18 06:59 18:59 Intake Total 100 Output Total 380 Balance -280 - Medications Medications: Current Medications Acetaminophen (Tylenol 325mg Tab) 650 mg PO Q4 PRN PRN Reason: Pain, Mild (1-3) Last Admin: 04/14/18 00:28 Dose: 650 mg Furosemide (Lasix) 40 mg IVP DAILY [facility] Last Admin: 04/15/18 09:36 Dose: 40 mg Ceftriaxone Sodium 2 gm/ (Sodium Chloride) 100 mls @ 100 mls/hr IVPB DAILY [facility] PRN Reason: Protocol Last Admin: 04/15/18 09:36 Dose: 100 mls/hr Lidocaine (Lidoderm) 2 ea TD Q24H PRN PRN Reason: PAIN -- SEE DOSE INSTRUCTIONS Last Admin: 04/14/18 06:18 Dose: 2 ea Pantoprazole Sodium (Protonix Ec Tab) 40 mg PO DAILY [facility] Last Admin: 04/15/18 09:36 Dose: 40 mg - Labs Labs: 04/10/18 08:09 04/15/18 07:22 PT 12.0 SECONDS (9.7-12.2) 04/10/18 08:09 INR 1.1 04/10/18 08:09 APTT 30 SECONDS (21-34) 04/10/18 08:09 - Constitutional Appears: No Acute Distress, Confused, Chronically Ill - Head Exam Head Exam: ATRAUMATIC, NORMAL INSPECTION - Eye Exam Eye Exam: EOMI, Normal appearance - Neck Exam Neck Exam: Normal Inspection. absent: Tenderness - Respiratory Exam Respiratory Exam: Clear to Ausculation Bilateral, NORMAL BREATHING PATTERN - Cardiovascular Exam Cardiovascular Exam: REGULAR RHYTHM, +S1 - GI/Abdominal Exam GI & Abdominal Exam: Soft. absent: Tenderness - Extremities Exam Extremities Exam: Normal Inspection. absent: Tenderness - Neurological Exam Neurological Exam: Awake, CN II-XII Intact - Skin Skin Exam: Dry, Warm Assessment and Plan (1) Rectal cancer Status: Acute (2) Pleural effusion Status: Acute (3) Hyponatremia Status: Acute (4) Acute non-ST elevation myocardial infarction (NSTEMI) Status: Acute (5) Rectal adenocarcinoma Status: Acute - Assessment and Plan (Free Text) Plan: decrease lasix dose mild IV saline- possible mildly dehydrated Rx hyperkalemia await pleuradesis
[2018-04-15] MEDS ORDERED: Sod Polystyrene Sulf 15 gm/60 ml Susp PO ONE (11:08)
[2018-04-15] MEDS: Sodium Chloride 0.9% 1,000 ML IV SCH (11:46)
--- NOTE | 2018-04-15 17:06 | CP.PCM.PN ---
Subjective - Date & Time of Evaluation Date of Evaluation: 04/15/18 Time of Evaluation: 17:02 - Subjective Subjective: Surgery Pt seen and examined. L chest tube had 300cc serous fluids/ 24hrs this AM. Chest tube dislodged. Pt and family is now agreeing for surgery . Objective - Vital Signs/Intake and Output Vital Signs (last 24 hours): Temp Pulse Resp BP Pulse Ox 97.5 F L 91 H 18 102/35 L 100 04/15/18 15:10 04/15/18 15:10 04/15/18 15:10 04/15/18 15:10 04/15/18 15:10 Intake and Output: 04/15/18 04/15/18 06:59 18:59 Intake Total 100 Output Total 380 Balance -280 - Medications Medications: Current Medications Acetaminophen (Tylenol 325mg Tab) 650 mg PO Q4 PRN PRN Reason: Pain, Mild (1-3) Last Admin: 04/14/18 00:28 Dose: 650 mg Furosemide (Lasix) 20 mg IVP DAILY [facility] Ceftriaxone Sodium 2 gm/ (Sodium Chloride) 100 mls @ 100 mls/hr IVPB DAILY [facility] PRN Reason: Protocol Last Admin: 04/15/18 09:36 Dose: 100 mls/hr Sodium Chloride (Sodium Chloride 0.9%) 1,000 mls @ 42 mls/hr IV .[id number] [facility] Last Admin: 04/15/18 11:46 Dose: 42 mls/hr Lidocaine (Lidoderm) 2 ea TD Q24H PRN PRN Reason: PAIN -- SEE DOSE INSTRUCTIONS Last Admin: 04/14/18 06:18 Dose: 2 ea Pantoprazole Sodium (Protonix Ec Tab) 40 mg PO DAILY [facility] Last Admin: 04/15/18 09:36 Dose: 40 mg - Labs Labs: 04/10/18 08:09 04/15/18 07:22 PT 12.0 SECONDS (9.7-12.2) 04/10/18 08:09 INR 1.1 04/10/18 08:09 APTT 30 SECONDS (21-34) 04/10/18 08:09 - Constitutional Appears: Chronically Ill - Head Exam Head Exam: ATRAUMATIC, NORMAL INSPECTION, NORMOCEPHALIC - Eye Exam Eye Exam: EOMI, Normal appearance, PERRL Pupil Exam: NORMAL ACCOMODATION, PERRL - ENT Exam ENT Exam: Mucous Membranes Moist, Normal Exam - Neck Exam Neck Exam: Full ROM, Normal Inspection. absent: Lymphadenopathy - Respiratory Exam Respiratory Exam: Decreased Breath Sounds, Rales Additional comments: basilar crackles - GI/Abdominal Exam GI & Abdominal Exam: Soft, Normal Bowel Sounds. absent: Tenderness - Extremities Exam Extremities Exam: Full ROM, Normal Inspection - Back Exam Back Exam: NORMAL INSPECTION - Neurological Exam Neurological Exam: Alert, Awake, CN II-XII Intact, Normal Gait, Oriented x3 - Psychiatric Exam Psychiatric exam: Normal Affect, Normal Mood - Skin Skin Exam: Dry, Intact, Normal Color, Warm Assessment and Plan - Assessment and Plan (Free Text) Assessment: b/l pleural effusion -planned for OR 11AM for pleurodesis and chest tube placement -Will obtain consent -NPO after midnight GUSTAVO Michel
--- NOTE | 2018-04-15 17:33 | CP.PCM.PN ---
Subjective - Date & Time of Evaluation Date of Evaluation: 04/15/18 Time of Evaluation: 15:00 - Subjective Subjective: Patient seen and examined Patient is awake and responsive Left pigtail catheter is dislodged Patient is scheduled for pleurodesis and chest tube on Objective - Vital Signs/Intake and Output Vital Signs (last 24 hours): Temp Pulse Resp BP Pulse Ox 97.5 F L 91 H 18 102/35 L 100 04/15/18 15:10 04/15/18 15:10 04/15/18 15:10 04/15/18 15:10 04/15/18 15:10 Intake and Output: 04/15/18 04/15/18 06:59 18:59 Intake Total 100 Output Total 380 Balance -280 - Medications Medications: Current Medications Acetaminophen (Tylenol 325mg Tab) 650 mg PO Q4 PRN PRN Reason: Pain, Mild (1-3) Last Admin: 04/14/18 00:28 Dose: 650 mg Furosemide (Lasix) 20 mg IVP DAILY [facility] Ceftriaxone Sodium 2 gm/ (Sodium Chloride) 100 mls @ 100 mls/hr IVPB DAILY [facility]AH PRN Reason: Protocol Last Admin: 04/15/18 09:36 Dose: 100 mls/hr Sodium Chloride (Sodium Chloride 0.9%) 1,000 mls @ 42 mls/hr IV .[id number] [facility] Last Admin: 04/15/18 11:46 Dose: 42 mls/hr Lidocaine (Lidoderm) 2 ea TD Q24H PRN PRN Reason: PAIN -- SEE DOSE INSTRUCTIONS Last Admin: 04/14/18 06:18 Dose: 2 ea Pantoprazole Sodium (Protonix Ec Tab) 40 mg PO DAILY [facility] Last Admin: 04/15/18 09:36 Dose: 40 mg - Labs Labs: 04/10/18 08:09 04/15/18 07:22 PT 12.0 SECONDS (9.7-12.2) 04/10/18 08:09 INR 1.1 04/10/18 08:09 APTT 30 SECONDS (21-34) 04/10/18 08:09 Assessment and Plan (1) Bilateral pleural effusion Status: Acute (2) Lung nodule < 6cm on CT Status: Acute
--- NOTE | 2018-04-16 08:33 | CP.PCM.PN ---
Subjective - Date & Time of Evaluation Date of Evaluation: 04/16/18 Time of Evaluation: 08:30 - Subjective Subjective: not more dyspneic chest tube/pleuradesis plans noted no new chemistries yet today chest tube / UO adequate Objective - Vital Signs/Intake and Output Vital Signs (last 24 hours): Temp Pulse Resp BP Pulse Ox 97.4 F L 87 20 104/40 L 100 04/16/18 07:00 04/16/18 07:00 04/16/18 07:00 04/16/18 07:00 04/16/18 07:00 Intake and Output: 04/16/18 04/16/18 06:59 18:59 Intake Total 446 Output Total 250 Balance 196 - Medications Medications: Current Medications Acetaminophen (Tylenol 325mg Tab) 650 mg PO Q4 PRN PRN Reason: Pain, Mild (1-3) Last Admin: 04/14/18 00:28 Dose: 650 mg Furosemide (Lasix) 20 mg IVP DAILY [facility] Ceftriaxone Sodium 2 gm/ (Sodium Chloride) 100 mls @ 100 mls/hr IVPB DAILY [facility]AH PRN Reason: Protocol Last Admin: 04/15/18 09:36 Dose: 100 mls/hr Sodium Chloride (Sodium Chloride 0.9%) 1,000 mls @ 42 mls/hr IV .[id number] [facility] Last Admin: 04/15/18 11:46 Dose: 42 mls/hr Lidocaine (Lidoderm) 2 ea TD Q24H PRN PRN Reason: PAIN -- SEE DOSE INSTRUCTIONS Last Admin: 04/14/18 06:18 Dose: 2 ea Pantoprazole Sodium (Protonix Ec Tab) 40 mg PO DAILY [facility] Last Admin: 04/15/18 09:36 Dose: 40 mg - Labs Labs: 04/10/18 08:09 04/15/18 07:22 PT 12.0 SECONDS (9.7-12.2) 04/10/18 08:09 INR 1.1 04/10/18 08:09 APTT 30 SECONDS (21-34) 04/10/18 08:09 - Constitutional Appears: No Acute Distress, Cachectic, Chronically Ill - Head Exam Head Exam: ATRAUMATIC, NORMAL INSPECTION - Eye Exam Eye Exam: EOMI, Normal appearance - Neck Exam Neck Exam: Normal Inspection. absent: Tenderness - Respiratory Exam Respiratory Exam: Decreased Breath Sounds, Clear to Ausculation Bilateral, NORMAL BREATHING PATTERN - Cardiovascular Exam Cardiovascular Exam: REGULAR RHYTHM, +S1 - GI/Abdominal Exam GI & Abdominal Exam: Soft. absent: Tenderness - Extremities Exam Extremities Exam: Normal Inspection. absent: Tenderness - Neurological Exam Neurological Exam: Awake, CN II-XII Intact - Skin Skin Exam: Dry, Warm Assessment and Plan (1) Rectal cancer Status: Acute (2) Pleural effusion Status: Acute (3) Hyponatremia Status: Acute (4) Acute non-ST elevation myocardial infarction (NSTEMI) Status: Acute (5) Rectal adenocarcinoma Status: Acute - Assessment and Plan (Free Text) Plan: Recheck chemistries On mild IV fluid hydration Await pleuradesis
[2018-04-16 09:30] LABS: INR 1.1; PROTHROMBIN TIME 11.6 SECONDS (9.7-12.2)
[2018-04-16 09:49] LABS: ALB/GLOB RATIO 0.9 (1.0-2.1); ALBUMIN 2.5 g/dL (3.5-5.0); ALT/SGPT 25 U/L (21-72); AST/SGOT 18 U/L (17-59); BLOOD UREA NITROGEN 47 mg/dL (9-20); GFR NON-AFRICAN AMERICAN > 60
[2018-04-16] MEDS: Pantoprazole 40 mg EC Tab PO SCH (10:53)
[2018-04-16] MEDS: cefTRIAXone 2 GM in Sodium Chloride 0.9% 100 ML IVPB SCH (10:53)
[2018-04-16] MEDS: Sodium Chloride 0.9% 1,000 ML IV SCH (11:00)
--- NOTE | 2018-04-16 11:23 | CP.PCM.PN ---
Subjective - Date & Time of Evaluation Date of Evaluation: 04/16/18 Time of Evaluation: 11:21 - Subjective Subjective: For tube thoracostomy and talc slurry pleurodesi in am tomorrow. Objective - Vital Signs/Intake and Output Vital Signs (last 24 hours): Temp Pulse Resp BP Pulse Ox 97.4 F L 87 20 104/40 L 100 04/16/18 07:00 04/16/18 07:00 04/16/18 07:00 04/16/18 10:53 04/16/18 07:00 Intake and Output: 04/16/18 04/16/18 06:59 18:59 Intake Total 446 Output Total 250 Balance 196 - Medications Medications: Current Medications Acetaminophen (Tylenol 325mg Tab) 650 mg PO Q4 PRN PRN Reason: Pain, Mild (1-3) Last Admin: 04/14/18 00:28 Dose: 650 mg Furosemide (Lasix) 20 mg IVP DAILY [facility] Last Admin: 04/16/18 10:53 Dose: 20 mg Ceftriaxone Sodium 2 gm/ (Sodium Chloride) 100 mls @ 100 mls/hr IVPB DAILY [facility]AH PRN Reason: Protocol Last Admin: 04/16/18 10:53 Dose: 100 mls/hr Sodium Chloride (Sodium Chloride 0.9%) 1,000 mls @ 42 mls/hr IV .[id number] [facility] Last Admin: 04/15/18 11:46 Dose: 42 mls/hr Lidocaine (Lidoderm) 2 ea TD Q24H PRN PRN Reason: PAIN -- SEE DOSE INSTRUCTIONS Last Admin: 04/14/18 06:18 Dose: 2 ea Pantoprazole Sodium (Protonix Ec Tab) 40 mg PO DAILY [facility] Last Admin: 04/16/18 10:53 Dose: 40 mg - Labs Labs: 04/10/18 08:09 04/16/18 09:16 PT 11.6 SECONDS (9.7-12.2) 04/16/18 09:16 INR 1.1 04/16/18 09:16 APTT 31 SECONDS (21-34) 04/16/18 09:16
--- NOTE | 2018-04-16 23:52 | CP.PCM.PN ---
Subjective - Date & Time of Evaluation Date of Evaluation: 04/16/18 Time of Evaluation: 19:00 - Subjective Subjective: Patient weak, but afebrile and in no respiratory distress. Occasional rectal bleeding. For a pleurodesis in AM. Objective - Vital Signs/Intake and Output Vital Signs (last 24 hours): Temp Pulse Resp BP Pulse Ox 98.0 F 92 H 20 102/33 L 100 04/16/18 15:00 04/16/18 15:00 04/16/18 15:00 04/16/18 15:00 04/16/18 15:00 Intake and Output: 04/16/18 04/17/18 18:59 06:59 Intake Total 480 456 Output Total 80 0 Balance 400 456 - Medications Medications: Current Medications Acetaminophen (Tylenol 325mg Tab) 650 mg PO Q4 PRN PRN Reason: Pain, Mild (1-3) Last Admin: 04/14/18 00:28 Dose: 650 mg Furosemide (Lasix) 20 mg IVP DAILY [facility] Last Admin: 04/16/18 10:53 Dose: 20 mg Ceftriaxone Sodium 2 gm/ (Sodium Chloride) 100 mls @ 100 mls/hr IVPB DAILY ANIYAH PRN Reason: Protocol Last Admin: 04/16/18 10:53 Dose: 100 mls/hr Sodium Chloride (Sodium Chloride 0.9%) 1,000 mls @ 42 mls/hr IV .[id number] [facility] Last Admin: 04/16/18 11:00 Dose: Not Given Lidocaine (Lidoderm) 2 ea TD Q24H PRN PRN Reason: PAIN -- SEE DOSE INSTRUCTIONS Last Admin: 04/14/18 06:18 Dose: 2 ea Pantoprazole Sodium (Protonix Ec Tab) 40 mg PO DAILY [facility] Last Admin: 04/16/18 10:53 Dose: 40 mg - Labs Labs: 04/10/18 08:09 04/16/18 09:16 PT 11.6 SECONDS (9.7-12.2) 04/16/18 09:16 INR 1.1 04/16/18 09:16 APTT 31 SECONDS (21-34) 04/16/18 09:16 - Constitutional Appears: Cachectic, Chronically Ill - Head Exam Head Exam: NORMAL INSPECTION - Eye Exam Eye Exam: Normal appearance Pupil Exam: NORMAL ACCOMODATION Additional comments: Left eye blindness. - ENT Exam ENT Exam: Normal Exam - Neck Exam Neck Exam: Normal Inspection - Respiratory Exam Additional comments: Few rhonchi heard at both bases. - Cardiovascular Exam Cardiovascular Exam: REGULAR RHYTHM - GI/Abdominal Exam GI & Abdominal Exam: Soft, Normal Bowel Sounds - Rectal Exam Rectal Exam: Deferred - Extremities Exam Extremities Exam: Normal Inspection - Back Exam Back Exam: NORMAL INSPECTION - Neurological Exam Neurological Exam: Alert, Awake - Psychiatric Exam Psychiatric exam: Anxious - Skin Skin Exam: Dry, Normal Color, Warm Assessment and Plan (1) Lower GI bleeding Status: Resolved (2) Anemia Status: Acute (3) Pneumonia Status: Resolved (4) Hyperkalemia Status: Resolved (5) Hyponatremia Status: Acute (6) Acute diastolic (congestive) heart failure Status: Resolved (7) Acute bacterial endocarditis Assessment & Plan: On iv Rocephin Status: Acute (8) Acute non-ST elevation myocardial infarction (NSTEMI) Assessment & Plan: Stable. Status: Acute (9) Bilateral pleural effusion Assessment & Plan: For pleurodesis. Status: Acute
[2018-04-17 07:30] LABS: BASO % 0.6 % (0.0-2.0); EOS % 0.6 % (0.0-4.0); HEMOGLOBIN 8.5 g/dL (12.0-18.0); LYMPH # 0.6 K/uL (1.0-4.3); LYMPH % 11.4 % (20.0-40.0); MEAN CORPUSCULAR HEMOGLOBIN 29.2 pg (27.0-31.0); MEAN CORPUSCULAR HGB CONC 32.9 g/dL (33.0-37.0); MEAN PLATELET VOLUME 8.3 fL (7.2-11.7); MONO # 0.3 K/uL (0.0-0.8); MONO % 5.4 % (0.0-10.0); NEUT # 4.2 K/uL (1.8-7.0); NRBC % 0.1 % (0.0-2.0); RBC 2.92 Mil/uL (4.40-5.90); RED CELL DISTRIBUTION WIDTH 20.5 % (11.5-14.5); WHITE BLOOD COUNT 5.1 K/uL (4.8-10.8)
[2018-04-17 07:31] LABS: MEAN CELL VOLUME 88.9 fL (80.0-94.0)
[2018-04-17 07:33] LABS: ALB/GLOB RATIO 0.8 (1.0-2.1); ALBUMIN 2.3 g/dL (3.5-5.0); ALT/SGPT 24 U/L (21-72); AST/SGOT 17 U/L (17-59); BLOOD UREA NITROGEN 37 mg/dL (9-20); CALCIUM 7.8 mg/dl (8.6-10.4); GFR NON-AFRICAN AMERICAN > 60
[2018-04-17 07:37] LABS: INR 1.1; PROTHROMBIN TIME 12.2 SECONDS (9.7-12.2)
--- NOTE | 2018-04-17 08:47 | CP.PCM.PN ---
Subjective - Date & Time of Evaluation Date of Evaluation: 04/17/18 Time of Evaluation: 08:44 - Subjective Subjective: Appears same Stil awaiting pleuradesis Na improving- 132 now- on IV NS Pre-renal azotemia better Otherwise same Objective - Vital Signs/Intake and Output Vital Signs (last 24 hours): Temp Pulse Resp BP Pulse Ox 97.5 F L 85 18 106/40 L 100 04/17/18 07:20 04/17/18 07:20 04/17/18 07:20 04/17/18 07:20 04/17/18 07:20 Intake and Output: 04/17/18 04/17/18 06:59 18:59 Intake Total 912 Output Total 270 Balance 642 - Medications Medications: Current Medications Acetaminophen (Tylenol 325mg Tab) 650 mg PO Q4 PRN PRN Reason: Pain, Mild (1-3) Last Admin: 04/14/18 00:28 Dose: 650 mg Furosemide (Lasix) 20 mg IVP DAILY [facility] Last Admin: 04/16/18 10:53 Dose: 20 mg Ceftriaxone Sodium 2 gm/ (Sodium Chloride) 100 mls @ 100 mls/hr IVPB DAILY [facility] PRN Reason: Protocol Last Admin: 04/16/18 10:53 Dose: 100 mls/hr Sodium Chloride (Sodium Chloride 0.9%) 1,000 mls @ 42 mls/hr IV .[id number] [facility] Last Admin: 04/16/18 11:00 Dose: Not Given Lidocaine (Lidoderm) 2 ea TD Q24H PRN PRN Reason: PAIN -- SEE DOSE INSTRUCTIONS Last Admin: 04/14/18 06:18 Dose: 2 ea Pantoprazole Sodium (Protonix Ec Tab) 40 mg PO DAILY [facility] Last Admin: 04/16/18 10:53 Dose: 40 mg - Labs Labs: 04/17/18 07:07 04/17/18 07:07 PT 12.2 SECONDS (9.7-12.2) 04/17/18 07:07 INR 1.1 04/17/18 07:07 APTT 29 SECONDS (21-34) 04/17/18 07:07 - Constitutional Appears: No Acute Distress, Chronically Ill - Head Exam Head Exam: ATRAUMATIC, NORMAL INSPECTION - Eye Exam Eye Exam: EOMI, Periorbital swelling - Neck Exam Neck Exam: Normal Inspection. absent: Tenderness - Respiratory Exam Respiratory Exam: Decreased Breath Sounds, NORMAL BREATHING PATTERN - Cardiovascular Exam Cardiovascular Exam: REGULAR RHYTHM, +S1 - GI/Abdominal Exam GI & Abdominal Exam: Soft. absent: Tenderness - Extremities Exam Extremities Exam: Normal Inspection. absent: Tenderness - Neurological Exam Neurological Exam: Awake, CN II-XII Intact - Skin Skin Exam: Dry, Warm Assessment and Plan (1) Rectal cancer Status: Acute (2) Pleural effusion Status: Acute (3) Hyponatremia Status: Acute (4) Acute non-ST elevation myocardial infarction (NSTEMI) Status: Acute (5) Rectal adenocarcinoma Status: Acute - Assessment and Plan (Free Text) Plan: Same IV fluids Await procedure f/u chemistries
[2018-04-17] MEDS ORDERED: Talc 5 gm Sterile Powder PL ONE (09:36)
[2018-04-17] MEDS: cefTRIAXone 2 GM in Sodium Chloride 0.9% 100 ML IVPB SCH (09:49)
[2018-04-17] MEDS: Pantoprazole 40 mg EC Tab PO SCH ×2 (09:50→10:52)
[2018-04-17] MEDS: Sodium Chloride 0.9% 1,000 ML IV SCH ×2 (10:57→18:25)
[2018-04-17] MEDS ORDERED: Midazolam 2 MG/2 ML VIAL ONE (11:10)
[2018-04-17] MEDS ORDERED: TALC PL SCH (12:00)
[2018-04-17] MEDS ORDERED: SODIUM CHLORIDE 0.9% PL SCH (12:00)
[2018-04-17] MEDS ORDERED: HYDROmorphone 0.5 mg/0.5 ml ISec IVP PRN ×2 (13:05→20:14)
--- NOTE | 2018-04-17 13:07 | PCM.SURG1 ---
Surgeon's Initial Post Op Note - Surgeon's Notes Surgeon: Dr. Carlos Michel Home Aid: Lesly Alarcon, PGY-2 Type of Anesthesia: General Endo Anesthesia Administered By: MEG Hoffman Pre-Operative Diagnosis: Recurrent pleural effusions Operative Findings: See op report Post-Operative Diagnosis: Recurrent pleural effusions Operation Performed: Right chest thoracostomy insertion x 2 w/pleurodesis Specimen/Specimens Removed: Pleural fluid, pleural tissue of right chest wall Estimated Blood Loss: EBL {In ML}: 0 Blood Products Given: N/A Drains Used: Chest Tubes (x2) Post-Op Condition: Fair Date of Surgery/Procedure: 04/17/18 Time of Surgery/Procedure: 13:07
--- NOTE | 2018-04-17 15:22 | RAD ---
Date of service: 04/17/2018 HISTORY: s/p right thoracostomy 2 chest tubes; pleurodesis COMPARISON: Portable chest 04/14/2018. FINDINGS: LUNGS: Right-sided chest tubes are now identified at the right hemithorax with no pneumothorax identified. Prior right pleural drainage catheter has been removed as well as similar focus at the left. No right-sided airspace disease. Limited left basilar airspace disease may be obscuring left hemidiaphragm. PLEURA: No right pleural effusion. A mild left pleural effusion may be read developing versus airspace disease left base. CARDIOVASCULAR: Normal. OSSEOUS STRUCTURES: No significant abnormalities. VISUALIZED UPPER ABDOMEN: Normal. OTHER FINDINGS: None. IMPRESSION: Interval removal bilateral pleural drainage catheters in place of 2 right-sided chest tubes. Potential reaccumulation of small left pleural effusion versus airspace disease left base.
--- NOTE | 2018-04-17 15:58 | CP.PCM.CON ---
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 During the hospital stay the patient is s/p right-sided thoracentesis , 1.5L removed, and L sided thoracentesis, 860ml removed. Repeat CT scan showed re-accumulated bilateral pleural effusions. S/p bilateral pigtail chest tubes. The patient again had recurrent pleural effusions and had a Right chest thoracostomy insertion x 2 w/ pleurodesis performed today. ICU consulted for cont monitoring. 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?, BPH, hypercholesterolemia, borderline DM, gout, and HTN PSH: Hernia repair, as above Allergies: Aspirin SH; Former Smoker; denies illegal drug use or alcohol FH: State: Denies Review of Systems - Review of Systems All systems: reviewed and no additional remarkable complaints except Past Patient History - Tetanus Immunizations Tetanus Immunization: Unknown - Past Medical History & Family History Past Medical History?: Yes Past Family History: Reviewed and not pertinent - Past Social History Smoking Status: Former Smoker Chewing Tobacco Use: No Cigar Use: No Alcohol: None Drugs: Denies Home Situation {Lives}: With Family Domestic Violence: Negative - CARDIAC Hx Hypercholesterolemia: Yes Hx Hypertension: Yes - PULMONARY Hx Respiratory Disorders: No - NEUROLOGICAL Hx Neurological Disorder: No - HEENT Hx HEENT Problems: Yes Hx Blind: Yes (left eye) Other/Comment: 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 - GENITOURINARY/GYNECOLOGICAL Hx Genitourinary Disorders: No - PSYCHIATRIC Hx Substance Use: No - SURGICAL HISTORY Hx Surgeries: Yes Hx Herniorrhaphy: Yes (left) - ANESTHESIA Hx Anesthesia: Yes Hx Anesthesia Reactions: No Meds Allergies/Adverse Reactions: Allergies Allergy/AdvReac Type Severity Reaction Status Date / Time aspirin Allergy Verified 03/18/18 16:47 - Medications Medications: Current Medications Acetaminophen (Tylenol 325mg Tab) 650 mg PO Q4 PRN PRN Reason: Pain, Mild (1-3) Last Admin: 04/14/18 00:28 Dose: 650 mg Furosemide (Lasix) 20 mg IVP DAILY [facility] Last Admin: 04/17/18 10:52 Dose: Not Given Hydromorphone HCl (Dilaudid) 0.5 mg IVP Q6H PRN PRN Reason: Pain, severe (8-10) Last Admin: 04/17/18 15:45 Dose: 0.5 mg Ceftriaxone Sodium 2 gm/ (Sodium Chloride) 100 mls @ 100 mls/hr IVPB DAILY ANIYAH PRN Reason: Protocol Last Admin: 04/17/18 09:49 Dose: 100 mls/hr Sodium Chloride (Sodium Chloride 0.9%) 1,000 mls @ 42 mls/hr IV .[id number] ANIYAH Last Admin: 04/17/18 10:57 Dose: Not Given Talc 2.5 gm/ Sodium Chloride 50 mls @ 0 mls/hr PL ONCE ANIYAH PRN Reason: UD Stop: 04/20/18 12:01 Lidocaine (Lidoderm) 2 ea TD Q24H PRN PRN Reason: PAIN -- SEE DOSE INSTRUCTIONS Last Admin: 04/14/18 06:18 Dose: 2 ea Pantoprazole Sodium (Protonix Ec Tab) 40 mg PO DAILY [facility] Last Admin: 04/17/18 10:52 Dose: Not Given Physical Exam - Head Exam Head Exam: ATRAUMATIC, NORMOCEPHALIC - Eye Exam Eye Exam: EOMI, PERRL Pupil Exam: NORMAL ACCOMODATION - ENT Exam ENT Exam: Mucous Membranes Moist - Respiratory Exam Respiratory Exam: Clear to Auscultation Bilateral. absent: Rales, Wheezes Additional comments: R sided chest tube x 2 - Cardiovascular Exam Cardiovascular Exam: REGULAR RHYTHM, RRR, +S1, +S2 - GI/Abdominal Exam GI & Abdominal Exam: Normal Bowel Sounds, Soft. absent: Tenderness - Extremities Exam Extremities exam: Negative for: calf tenderness, pedal edema - Neurological Exam Neurological exam: Alert, CN II-XII Intact, Oriented x3 - Psychiatric Exam Psychiatric exam: Normal Mood - Skin Skin Exam: Dry, Intact, Warm Results - Vital Signs Recent Vital Signs: Last Vital Signs Temp 98.7 F 04/17/18 14:30 Pulse 90 04/17/18 14:30 Resp 32 H 04/17/18 14:30 BP 106/47 L 04/17/18 14:30 Pulse Ox 100 04/17/18 14:30 - Labs Result Diagrams: 04/17/18 07:07 04/17/18 07:07 Labs: Laboratory Results - last 24 hr 04/16/18 04/16/18 04/17/18 16:43 21:13 06:40 WBC RBC Hgb Hct MCV MCH MCHC RDW Plt Count MPV Neut % (Auto) Lymph % (Auto) Guthrie % (Auto) Eos % (Auto) Baso % (Auto) Neut # (Auto) Lymph # (Auto) Guthrie # (Auto) Eos # (Auto) Baso # (Auto) PT INR APTT Sodium Potassium Chloride Carbon Dioxide Anion Gap BUN Creatinine Est GFR ( Amer) Est GFR (Non-Af Amer) POC Glucose (mg/dL) 149 H 119 H 117 H Random Glucose Calcium Total Bilirubin AST ALT Alkaline Phosphatase Total Protein Albumin Globulin Albumin/Globulin Ratio 04/17/18 04/17/18 04/17/18 07:07 07:07 07:07 WBC 5.1 RBC 2.92 L Hgb 8.5 L Hct 26.0 L MCV 88.9 D MCH 29.2 MCHC 32.9 L RDW 20.5 H Plt Count 163 MPV 8.3 Neut % (Auto) 82.0 H Lymph % (Auto) 11.4 L Guthrie % (Auto) 5.4 Eos % (Auto) 0.6 Baso % (Auto) 0.6 Neut # (Auto) 4.2 Lymph # (Auto) 0.6 L Guthrie # (Auto) 0.3 Eos # (Auto) 0.0 Baso # (Auto) 0.0 PT 12.2 INR 1.1 APTT 29 Sodium 132 Potassium 3.9 Chloride 100 Carbon Dioxide 25 Anion Gap 11 BUN 37 H Creatinine 0.7 L Est GFR ( Amer) > 60 Est GFR (Non-Af Amer) > 60 POC Glucose (mg/dL) Random Glucose 124 H Calcium 7.8 L Total Bilirubin 0.5 AST 17 ALT 24 Alkaline Phosphatase 83 Total Protein 5.1 L Albumin 2.3 L Globulin 2.8 Albumin/Globulin Ratio 0.8 L Assessment & Plan - Assessment and Plan (Free Text) Assessment: 67 yo M with PMH of 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 s/p b/l thoracentesis. Repeat CT scan showed re-accumulated bilateral pleural effusions - S/p bilateral pigtail chest tubes. The patient again had recurrent pleural effusions and had a Right chest thoracostomy insertion x 2 w/ pleurodesis performed today. ICU consulted for cont monitoring. Neuro: - AAO x 3 - pain control with dilaudid 0.5mg Q6H Pulm: - Maintain SPO2 > 92% - Nasal cannula as needed - Incentive spirometry CV: - Hemodynamically stable - F/u surgery consult and recs - F/u chest tube outputs - CXR ordered for tomorrow - Maintain MAP > 65 - Cont Lasix 20mg IVP daily GI: - HHD - GI ppx with protonix Endo: - maintain euglycemic Heme: - Hb 8.5 today - Monitor H/H Renal: - Monitor I and O - Replete electrolytes as needed ID: - Afebrile and wbc of 5.1 - Cont Rocephin - Cont to monitor for any signs of infection - F/u septic work up GI/DVT ppx - protonix and HSQ Case and plan was reviewed and discussed in detail with Dr Moeller. <Jean Paul Moeller - Last Filed: 04/17/18 21:10> Meds - Medications Medications: Current Medications Acetaminophen (Tylenol 325mg Tab) 650 mg PO Q4 PRN PRN Reason: Pain, Mild (1-3) Last Admin: 04/14/18 00:28 Dose: 650 mg Furosemide (Lasix) 20 mg IVP DAILY [facility] Last Admin: 04/17/18 10:52 Dose: Not Given Heparin Sodium (Porcine) (Heparin) 5,000 units SC Q8 ANIYAH Hydromorphone HCl (Dilaudid) 0.5 mg IVP Q4H PRN PRN Reason: Pain, severe (8-10) Ceftriaxone Sodium 2 gm/ (Sodium Chloride) 100 mls @ 100 mls/hr IVPB DAILY ANIYAH PRN Reason: Protocol Last Admin: 04/17/18 09:49 Dose: 100 mls/hr Sodium Chloride (Sodium Chloride 0.9%) 1,000 mls @ 42 mls/hr IV .[id number] ANIYAH Last Admin: 04/17/18 18:25 Dose: 42 mls/hr Talc 2.5 gm/ Sodium Chloride 50 mls @ 0 mls/hr PL ONCE ANIYAH PRN Reason: UD Stop: 04/20/18 12:01 Pantoprazole Sodium (Protonix Ec Tab) 40 mg PO DAILY ANIY[facility] Last Admin: 04/17/18 10:52 Dose: Not Given Results - Vital Signs Recent Vital Signs: Last Vital Signs Temp 97.1 F L 04/17/18 15:00 Pulse 91 H 04/17/18 18:47 Resp 10 L 04/17/18 18:47 BP 104/33 L 04/17/18 18:47 Pulse Ox 100 04/17/18 18:47 - Labs Result Diagrams: 04/17/18 07:07 04/17/18 07:07 Labs: Laboratory Results - last 24 hr 04/16/18 04/17/18 04/17/18 21:13 06:40 07:07 WBC RBC Hgb Hct MCV MCH MCHC RDW Plt Count MPV Neut % (Auto) Lymph % (Auto) Guthrie % (Auto) Eos % (Auto) Baso % (Auto) Neut # (Auto) Lymph # (Auto) Guthrie # (Auto) Eos # (Auto) Baso # (Auto) PT INR APTT Sodium 132 Potassium 3.9 Chloride 100 Carbon Dioxide 25 Anion Gap 11 BUN 37 H Creatinine 0.7 L Est GFR ( Amer) > 60 Est GFR (Non-Af Amer) > 60 POC Glucose (mg/dL) 119 H 117 H Random Glucose 124 H Calcium 7.8 L Total Bilirubin 0.5 AST 17 ALT 24 Alkaline Phosphatase 83 Total Protein 5.1 L Albumin 2.3 L Globulin 2.8 Albumin/Globulin Ratio 0.8 L 04/17/18 04/17/18 07:07 07:07 WBC 5.1 RBC 2.92 L Hgb 8.5 L Hct 26.0 L MCV 88.9 D MCH 29.2 MCHC 32.9 L RDW 20.5 H Plt Count 163 MPV 8.3 Neut % (Auto) 82.0 H Lymph % (Auto) 11.4 L Guthrie % (Auto) 5.4 Eos % (Auto) 0.6 Baso % (Auto) 0.6 Neut # (Auto) 4.2 Lymph # (Auto) 0.6 L Guthrie # (Auto) 0.3 Eos # (Auto) 0.0 Baso # (Auto) 0.0 PT 12.2 INR 1.1 APTT 29 Sodium Potassium Chloride Carbon Dioxide Anion Gap BUN Creatinine Est GFR ( Amer) Est GFR (Non-Af Amer) POC Glucose (mg/dL) Random Glucose Calcium Total Bilirubin AST ALT Alkaline Phosphatase Total Protein Albumin Globulin Albumin/Globulin Ratio Assessment & Plan (1) Bilateral pleural effusion Status: Acute (2) Lung nodule < 6cm on CT Status: Acute (3) Hyponatremia Status: Acute (4) Pneumonia Status: Resolved Attending/Attestation - Attestation I have personally seen and examined this patient.: Yes I have fully participated in the care of the patient.: Yes I have reviewed all pertinent clinical information: Yes Notes (Text): 04/17/18 21:10 The patient was Seen/interviewed and examined by me at the bedside during ICU round, Medical records reviewed and Management issues were discussed and formulated with the house staff. Events reviewed I have reviewed all the relevant clinical, laboratory, hemodynamic, radiographic data and medications Pain issues, skin care, head of the bed elevation, glycemic control were addressed. I concur with resident's assessment and plan of care as transcribed in Dr. Bolaños note.
--- NOTE | 2018-04-17 16:39 | RAD ---
Date of service: 04/17/2018 PROCEDURE: Intraoperative Fluoroscopy. HISTORY: CA. FINDINGS: Fluoroscopic assistance was provided for right lung chest tube placement. Please refer to the operative report from NANCY Wren.
--- NOTE | 2018-04-17 18:45 | CP.PCM.PN ---
Subjective - Date & Time of Evaluation Date of Evaluation: 04/17/18 Time of Evaluation: 09:00 - Subjective Subjective: stable s/p thoracoscopy vats pleurodesis afebrile Objective - Vital Signs/Intake and Output Vital Signs (last 24 hours): Temp Pulse Resp BP Pulse Ox 97.1 F L 98 H 21 120/34 L 100 04/17/18 15:00 04/17/18 16:47 04/17/18 16:47 04/17/18 16:47 04/17/18 16:47 Intake and Output: 04/17/18 04/17/18 06:59 18:59 Intake Total 912 588 Output Total 270 290 Balance 642 298 - Medications Medications: Current Medications Acetaminophen (Tylenol 325mg Tab) 650 mg PO Q4 PRN PRN Reason: Pain, Mild (1-3) Last Admin: 04/14/18 00:28 Dose: 650 mg Furosemide (Lasix) 20 mg IVP DAILY [facility] [place] Last Admin: 04/17/18 10:52 Dose: Not Given Heparin Sodium (Porcine) (Heparin) 5,000 units SC Q8 ANIYAH Hydromorphone HCl (Dilaudid) 0.5 mg IVP Q6H PRN PRN Reason: Pain, severe (8-10) Last Admin: 04/17/18 15:45 Dose: 0.5 mg Ceftriaxone Sodium 2 gm/ (Sodium Chloride) 100 mls @ 100 mls/hr IVPB DAILY ANIYAH PRN Reason: Protocol Last Admin: 04/17/18 09:49 Dose: 100 mls/hr Sodium Chloride (Sodium Chloride 0.9%) 1,000 mls @ 42 mls/hr IV .[id number] [facility] [place] Last Admin: 04/17/18 10:57 Dose: Not Given Talc 2.5 gm/ Sodium Chloride 50 mls @ 0 mls/hr PL ONCE ANIYAH PRN Reason: UD Stop: 04/20/18 12:01 Pantoprazole Sodium (Protonix Ec Tab) 40 mg PO DAILY [facility] [place] Last Admin: 04/17/18 10:52 Dose: Not Given - Labs Labs: 04/17/18 07:07 04/17/18 07:07 PT 12.2 SECONDS (9.7-12.2) 04/17/18 07:07 INR 1.1 04/17/18 07:07 APTT 29 SECONDS (21-34) 04/17/18 07:07 - Constitutional Appears: Non-toxic, Chronically Ill - Head Exam Head Exam: NORMOCEPHALIC - Eye Exam Eye Exam: absent: PERRL, Scleral icterus Pupil Exam: absent: NORMAL ACCOMODATION - ENT Exam ENT Exam: Mucous Membranes Dry - Neck Exam Neck Exam: absent: Lymphadenopathy, Thyromegaly - Respiratory Exam Respiratory Exam: Decreased Breath Sounds, Rhonchi - Cardiovascular Exam Cardiovascular Exam: REGULAR RHYTHM, +S1, +S2 - GI/Abdominal Exam GI & Abdominal Exam: Distended, Soft - Rectal Exam Rectal Exam: Deferred - Exam Exam: NORMAL INSPECTION - Extremities Exam Extremities Exam: absent: Pedal Edema - Back Exam Back Exam: absent: CVA tenderness (L), CVA tenderness (R) - Neurological Exam Neurological Exam: Altered Assessment and Plan (1) Anemia Status: Acute (2) Pneumonia Status: Resolved (3) Lower GI bleeding Status: Resolved (4) Mass in rectum Status: Acute (5) Rectal adenocarcinoma Status: Acute (6) Endocarditis Status: Acute - Assessment and Plan (Free Text) Assessment: IV antibiotics renewed
[2018-04-17] MEDS ORDERED: HYDROmorphone 0.5 mg/0.5 ml ISec IVP STA (19:53)
--- NOTE | 2018-04-17 23:35 | CP.PCM.PN ---
Subjective - Date & Time of Evaluation Date of Evaluation: 04/17/18 Time of Evaluation: 19:00 - Subjective Subjective: Patient now in ICU. Had a right pleurodesis this AM. Complaining of right anterior chest pain, but no SOB, no fever. Hgb: 8.5 Objective - Vital Signs/Intake and Output Vital Signs (last 24 hours): Temp Pulse Resp BP Pulse Ox 98.5 F 98 H 10 L 107/33 L 98 04/17/18 20:00 04/17/18 21:13 04/17/18 21:13 04/17/18 21:14 04/17/18 21:13 Intake and Output: 04/17/18 04/18/18 18:59 06:59 Intake Total 648 226 Output Total 402 Balance 246 226 - Medications Medications: Current Medications Acetaminophen (Tylenol 325mg Tab) 650 mg PO Q4 PRN PRN Reason: Pain, Mild (1-3) Last Admin: 04/14/18 00:28 Dose: 650 mg Furosemide (Lasix) 20 mg IVP DAILY [facility] Last Admin: 04/17/18 10:52 Dose: Not Given Heparin Sodium (Porcine) (Heparin) 5,000 units SC Q8 [facility] Last Admin: 04/17/18 21:33 Dose: 5,000 units Hydromorphone HCl (Dilaudid) 0.5 mg IVP Q4H PRN PRN Reason: Pain, severe (8-10) Ceftriaxone Sodium 2 gm/ (Sodium Chloride) 100 mls @ 100 mls/hr IVPB DAILY [facility] PRN Reason: Protocol Last Admin: 04/17/18 09:49 Dose: 100 mls/hr Sodium Chloride (Sodium Chloride 0.9%) 1,000 mls @ 42 mls/hr IV .[id number] [facility] Last Admin: 04/17/18 18:25 Dose: 42 mls/hr Talc 2.5 gm/ Sodium Chloride 50 mls @ 0 mls/hr PL ONCE ANIYAH PRN Reason: UD Stop: 04/20/18 12:01 Pantoprazole Sodium (Protonix Ec Tab) 40 mg PO DAILY [facility] Last Admin: 04/17/18 10:52 Dose: Not Given - Labs Labs: 04/17/18 07:07 04/17/18 07:07 PT 12.2 SECONDS (9.7-12.2) 04/17/18 07:07 INR 1.1 04/17/18 07:07 APTT 29 SECONDS (21-34) 04/17/18 07:07 - Constitutional Appears: No Acute Distress, Cachectic, Chronically Ill - Head Exam Head Exam: NORMAL INSPECTION - Eye Exam Eye Exam: Normal appearance Additional comments: Left eye blindness. - ENT Exam ENT Exam: Normal Exam - Neck Exam Neck Exam: Normal Inspection - Respiratory Exam Respiratory Exam: Rhonchi - Cardiovascular Exam Cardiovascular Exam: REGULAR RHYTHM - GI/Abdominal Exam GI & Abdominal Exam: Soft, Normal Bowel Sounds - Extremities Exam Extremities Exam: Normal Inspection - Back Exam Back Exam: NORMAL INSPECTION - Neurological Exam Neurological Exam: Alert, Awake, Oriented x3 - Psychiatric Exam Psychiatric exam: Anxious - Skin Skin Exam: Dry, Intact Assessment and Plan (1) Lower GI bleeding Assessment & Plan: Still with occasional rectal bleeding. Status: Resolved (2) Anemia Assessment & Plan: Repeat CBC. Status: Acute (3) Pneumonia Status: Resolved (4) Hyperkalemia Status: Resolved (5) Hyponatremia Status: Acute (6) Acute diastolic (congestive) heart failure Status: Resolved (7) Acute bacterial endocarditis Assessment & Plan: On IV Rocephin. Status: Acute (8) Acute non-ST elevation myocardial infarction (NSTEMI) Status: Acute (9) Bilateral pleural effusion Assessment & Plan: Had right pleurodesis this AM. Status: Acute
[2018-04-18 06:35] LABS: BASO % 0.3 % (0.0-2.0); HEMOGLOBIN 8.5 g/dL (12.0-18.0); LYMPH # 0.5 K/uL (1.0-4.3); LYMPH % 5.6 % (20.0-40.0); MEAN CELL VOLUME 87.8 fL (80.0-94.0); MEAN CORPUSCULAR HEMOGLOBIN 29.6 pg (27.0-31.0); MEAN CORPUSCULAR HGB CONC 33.7 g/dL (33.0-37.0); MEAN PLATELET VOLUME 8.9 fL (7.2-11.7); MONO # 0.5 K/uL (0.0-0.8); MONO % 5.6 % (0.0-10.0); NEUT # 7.5 K/uL (1.8-7.0); NEUT % 88.5 % (50.0-75.0); PLATELET COUNT 142 K/uL (130-400); RBC 2.88 Mil/uL (4.40-5.90); RED CELL DISTRIBUTION WIDTH 20.9 % (11.5-14.5); WHITE BLOOD COUNT 8.4 K/uL (4.8-10.8)
[2018-04-18 06:48] LABS: ALB/GLOB RATIO 0.9 (1.0-2.1); ALBUMIN 2.4 g/dL (3.5-5.0); ALT/SGPT 26 U/L (21-72); AST/SGOT 21 U/L (17-59); BLOOD UREA NITROGEN 45 mg/dL (9-20); CALCIUM 7.8 mg/dl (8.6-10.4); GFR NON-AFRICAN AMERICAN > 60
[2018-04-18] MEDS ORDERED: Benzocaine/Menthol (Cepacol) Lozenge MT PRN (08:08)
--- NOTE | 2018-04-18 08:28 | CP.PCM.PN ---
Subjective - Date & Time of Evaluation Date of Evaluation: 04/18/18 Time of Evaluation: 08:22 - Subjective Subjective: CT surgery progress note for Dr. Sharri Alarcon, PGY-2 Pt S & E at bedside at 0740 Pt hypotensive at bedside, reports that he lost his voice. No CP, SOB, N & V, F & C. Objective - Vital Signs/Intake and Output Vital Signs (last 24 hours): Temp Pulse Resp BP Pulse Ox 98 F 102 H 33 H 98/25 L 100 04/18/18 04:00 04/18/18 06:00 04/18/18 06:00 04/18/18 06:00 04/18/18 06:00 Intake and Output: 04/18/18 04/18/18 06:59 18:59 Intake Total 764 Output Total 410 Balance 354 - Medications Medications: Current Medications Acetaminophen (Tylenol 325mg Tab) 650 mg PO Q4 PRN PRN Reason: Pain, Mild (1-3) Last Admin: 04/18/18 04:00 Dose: 650 mg Benzocaine/Menthol (Cepacol Sore Throat) 1 [place] MT Q2 PRN PRN Reason: Sore Throat Furosemide (Lasix) 20 mg IVP DAILY [facility] Last Admin: 04/17/18 10:52 Dose: Not Given Heparin Sodium (Porcine) (Heparin) 5,000 units SC Q8 [facility] Last Admin: 04/18/18 07:31 Dose: 5,000 units Hydromorphone HCl (Dilaudid) 0.5 mg IVP Q4H PRN PRN Reason: Pain, severe (8-10) Ceftriaxone Sodium 2 gm/ (Sodium Chloride) 100 mls @ 100 mls/hr IVPB DAILY [facility] PRN Reason: Protocol Last Admin: 04/17/18 09:49 Dose: 100 mls/hr Sodium Chloride (Sodium Chloride 0.9%) 1,000 mls @ 42 mls/hr IV .[id number] [facility] Last Admin: 04/17/18 18:25 Dose: 42 mls/hr Talc 2.5 gm/ Sodium Chloride 50 mls @ 0 mls/hr PL ONCE ANIYAH PRN Reason: UD Stop: 04/20/18 12:01 Pantoprazole Sodium (Protonix Ec Tab) 40 mg PO DAILY [facility] Last Admin: 04/17/18 10:52 Dose: Not Given - Labs Labs: 04/18/18 06:23 04/18/18 06:23 PT 12.2 SECONDS (9.7-12.2) 04/17/18 07:07 INR 1.1 04/17/18 07:07 APTT 29 SECONDS (21-34) 04/17/18 07:07 - Constitutional Appears: Non-toxic, No Acute Distress, Cachectic, Chronically Ill - Head Exam Head Exam: ATRAUMATIC, NORMAL INSPECTION, NORMOCEPHALIC - Eye Exam Eye Exam: EOMI, Normal appearance - ENT Exam ENT Exam: Mucous Membranes Moist, Normal Exam - Neck Exam Neck Exam: Full ROM, Normal Inspection - Respiratory Exam Respiratory Exam: NORMAL BREATHING PATTERN Additional comments: Right chest wall with anterior and posterior chest tubes in place- dressing saturated with sanguionus output - Cardiovascular Exam Cardiovascular Exam: REGULAR RHYTHM, +S1, +S2 - GI/Abdominal Exam GI & Abdominal Exam: Soft. absent: Distended, Firm, Guarding, Rigid, Tenderness - Neurological Exam Neurological Exam: Alert, Awake, CN II-XII Intact, Oriented x3 - Psychiatric Exam Psychiatric exam: Normal Affect, Normal Mood - Skin Skin Exam: Dry, Intact, Normal Color, Warm Assessment and Plan - Assessment and Plan (Free Text) Assessment: 67M POD#1 Right thoracostomy tube insertion x 2 with pleurodesis now with hypotension in ICU CXR this AM without pneumothorax Plan: FU CT chest Monitor CT output Daily CXR Monitor VS Futher mgmt as per primary and ICU DW Dr. Marilu Alarcon, PGY-2
[2018-04-18 08:31] LABS: BANDS 7 % (0-2); LYMPHOCYTE 4 % (20-40); MONOCYTE 4 % (0-10); NEUTROPHIL 85 % (50-75); TOTAL CELLS COUNTED 100
[2018-04-18 08:32] LABS: ANISOCYTOSIS MODERATE; HYPOCHROMIC SLIGHT; PLATELET ESTIMATE NORMAL (NORMAL)
--- NOTE | 2018-04-18 08:32 | RAD ---
Date of service: 04/18/2018 HISTORY: s/p chest tubes COMPARISON: 04/17/2018 FINDINGS: LUNGS: Left perihilar opacity, worsened compared to prior. Patchy opacity at right base, possibly subsegmental atelectasis. New since prior. PLEURA: Possible small left pleural effusion. Two right chest tubes unchanged extending to lung apex. No pneumothorax. CARDIOVASCULAR: Normal. OSSEOUS STRUCTURES: No significant abnormalities. VISUALIZED UPPER ABDOMEN: Normal. OTHER FINDINGS: None. IMPRESSION: Left perihilar opacity, increasing. Small left pleural effusion. Two right chest tubes. No pneumothorax.
[2018-04-18 09:12] LABS: BODY FLUID TYPE PLEURAL
--- NOTE | 2018-04-18 10:05 | CP.CCUPN ---
<Luis Bolaños - Last Filed: 04/18/18 10:12> CCU Subjective - Physician Review Subjective (Free Text): Critical Care Progress Note: Patient seen and examined at bedside. No acute events overnight. patient with 2 R sided chest tubes. Denies any pain. 12 Point ROS performed and neg other than stated above. CCU Objective - Vital Signs / Intake & Output Intake and Output (Last 8hrs): Intake & Output 04/17/18 04/18/18 04/18/18 22:59 06:59 14:59 Intake Total 448 496 Output Total 112 410 Balance 336 86 Weight 108 lb 0.424 oz 119 lb 11.376 oz Intake: Intake, IV Amount 168 336 Left Forearm 168 336 Oral 280 160 Output: Chest Tube Drainage 112 260 Right anterior medial 14 60 chest Right posterior medial 98 200 chest Urine 0 150 Urine, Voided 0 150 - Physical Exam Head: Positive for: Atraumatic, Normocephalic Pupils: Positive for: PERRL Extroacular Muscles: Positive for: Other (left eyeball with upward gaze deviation, blind in left eye, but R eye visual simpson grossly intact) Conjunctiva: Positive for: Normal. Negative for: Injected, Icteric Mouth: Positive for: Moist Mucous Membranes. Negative for: Dry, Drooling Pharnyx: Positive for: Normal Nose (External): Positive for: Atraumatic, Other (wearing NC 3L O2). Negative for: Abrasion, Contusion, Laceration Nose (Internal): Positive for: No Active Bleeding. Negative for: Epistaxis Neck: Positive for: Normal Range of Motion, Trachea Midline. Negative for: Lymphadenopathy Respiratory/Chest: Positive for: Good Air Exchange, Other (chest tubes bilaterally, draining serosanguinous fluid). Negative for: Respiratory Distress , Wheezes, Rhonchi, Tachypneic, Tender to Palpation Cardiovascular: Positive for: Regular Rate and Rhythm, Normal S1, S2. Negative for: Murmurs, Irregular Rhythm, Tachycardic, Bradycardic Abdomen: Positive for: Tenderness (mild tenderness epigastically after acute retching episode), Normal Bowel Sounds. Negative for: Distention, Rebound, Guarding, Mass/Organomegaly Upper Extremity: Positive for: Normal Inspection, NORMAL PULSES (+2 radials). Negative for: Cyanosis, Edema, Tenderness, Swelling, Erythema Lower Extremity: Positive for: Normal Inspection, NORMAL PULSES (+2 dorsalis pedis bilaterally). Negative for: Edema, CALF TENDERNESS, Cyanosis, Tenderness , Swelling, Erythema Neurological: Positive for: GCS=15, Speech Normal, Motor Func Grossly Intact, Other (following commands appropriately) Skin: Positive for: Warm, Dry, Normal Color. Negative for: Rashes Psychiatric: Positive for: Alert, Oriented x 3, Normal Affect, Normal Mood - Medications Active Medications: Active Medications Generic Name Dose Route Start Last Admin Trade Name Freq PRN Reason Stop Dose Admin Acetaminophen 650 mg 03/19/18 12:00 04/18/18 04:00 Tylenol 325mg Tab PO 650 mg Q4 PRN Administration Pain, Mild (1-3) Albuterol/Ipratropium 3 ml 04/18/18 12:00 Duoneb 3 Mg/0.5 Mg (3 Ml) Ud INH RQ4 ANIYAH Benzocaine/Menthol 1 keely 04/18/18 08:08 Cepacol Sore Throat MT Q2 PRN Sore Throat Furosemide 20 mg 04/15/18 11:07 04/17/18 10:52 Lasix IVP Not Given DAILY ANIYAH Heparin Sodium (Porcine) 5,000 units 04/17/18 22:00 04/18/18 07:31 Heparin SC 5,000 units Q8 ANIYAH Administration Hydromorphone HCl 0.5 mg 04/17/18 20:14 Dilaudid IVP Q4H PRN Pain, severe (8-10) Ceftriaxone Sodium 2 gm/ 100 mls @ 100 mls/hr 04/06/18 10:00 04/17/18 09:49 Sodium Chloride IVPB 100 mls/hr DAILY ANIYAH Administration Protocol Talc 2.5 gm/ Sodium Chloride 50 mls @ 0 mls/hr 04/17/18 12:00 PL 04/20/18 12:01 ONCE ANIYAH UD Midodrine 2.5 mg 04/18/18 09:15 Proamatine PO Q8 ANIYAH Pantoprazole Sodium 40 mg 04/11/18 10:00 04/17/18 10:52 Protonix Ec Tab PO Not Given DAILY ANIYAH - Patient Studies Lab Studies: Lab Studies 04/18/18 04/18/18 04/18/18 Range/Units 09:10 09:10 06:23 WBC (4.8-10.8) K/uL RBC (4.40-5.90) Mil/uL Hgb (12.0-18.0) g/dL Hct (35.0-51.0) % MCV (80.0-94.0) fL MCH (27.0-31.0) pg MCHC (33.0-37.0) g/dL RDW (11.5-14.5) % Plt Count (130-400) K/uL MPV (7.2-11.7) fL Neut % (Auto) (50.0-75.0) % Lymph % (Auto) (20.0-40.0) % Charles % (Auto) (0.0-10.0) % Eos % (Auto) (0.0-4.0) % Baso % (Auto) (0.0-2.0) % Neut # (Auto) (1.8-7.0) K/uL Lymph # (Auto) (1.0-4.3) K/uL Charles # (Auto) (0.0-0.8) K/uL Eos # (Auto) (0.0-0.7) K/uL Baso # (Auto) (0.0-0.2) K/uL Neutrophils % (Manual) (50-75) % Band Neutrophils % (0-2) % Lymphocytes % (Manual) (20-40) % Monocytes % (Manual) (0-10) % Platelet Estimate (NORMAL) Hypochromasia (manual) Anisocytosis (manual) Sodium 131 L (132-148) mmol/L Potassium 4.8 (3.6-5.2) mmol/L Chloride 101 (98-107) mmol/L Carbon Dioxide 22 (22-30) mmol/L Anion Gap 13 (10-20) BUN 45 H (9-20) mg/dL Creatinine 0.9 (0.8-1.5) mg/dL Est GFR ( Amer) > 60 Est GFR (Non-Af Amer) > 60 Random Glucose 151 H (75-110) mg/dL Calcium 7.8 L (8.6-10.4) mg/dl Total Bilirubin 0.5 (0.2-1.3) mg/dL AST 21 (17-59) U/L ALT 26 (21-72) U/L Alkaline Phosphatase 84 (38-126) U/L Total Protein 5.2 L (6.3-8.3) g/dL Albumin 2.4 L (3.5-5.0) g/dL Globulin 2.8 (2.2-3.9) gm/dL Albumin/Globulin Ratio 0.9 L (1.0-2.1) Fluid Source Pleural Pleural 04/18/18 Range/Units 06:23 WBC 8.4 D (4.8-10.8) K/uL RBC 2.88 L (4.40-5.90) Mil/uL Hgb 8.5 L (12.0-18.0) g/dL Hct 25.3 L (35.0-51.0) % MCV 87.8 (80.0-94.0) fL MCH 29.6 (27.0-31.0) pg MCHC 33.7 (33.0-37.0) g/dL RDW 20.9 H (11.5-14.5) % Plt Count 142 (130-400) K/uL MPV 8.9 (7.2-11.7) fL Neut % (Auto) 88.5 H (50.0-75.0) % Lymph % (Auto) 5.6 L (20.0-40.0) % Charles % (Auto) 5.6 (0.0-10.0) % Eos % (Auto) 0.0 (0.0-4.0) % Baso % (Auto) 0.3 (0.0-2.0) % Neut # (Auto) 7.5 H (1.8-7.0) K/uL Lymph # (Auto) 0.5 L (1.0-4.3) K/uL Charles # (Auto) 0.5 (0.0-0.8) K/uL Eos # (Auto) 0.0 (0.0-0.7) K/uL Baso # (Auto) 0.0 (0.0-0.2) K/uL Neutrophils % (Manual) 85 H (50-75) % Band Neutrophils % 7 H (0-2) % Lymphocytes % (Manual) 4 L (20-40) % Monocytes % (Manual) 4 (0-10) % Platelet Estimate Normal (NORMAL) Hypochromasia (manual) Slight Anisocytosis (manual) Moderate Sodium (132-148) mmol/L Potassium (3.6-5.2) mmol/L Chloride (98-107) mmol/L Carbon Dioxide (22-30) mmol/L Anion Gap (10-20) BUN (9-20) mg/dL Creatinine (0.8-1.5) mg/dL Est GFR ( Amer) Est GFR (Non-Af Amer) Random Glucose (75-110) mg/dL Calcium (8.6-10.4) mg/dl Total Bilirubin (0.2-1.3) mg/dL AST (17-59) U/L ALT (21-72) U/L Alkaline Phosphatase (38-126) U/L Total Protein (6.3-8.3) g/dL Albumin (3.5-5.0) g/dL Globulin (2.2-3.9) gm/dL Albumin/Globulin Ratio (1.0-2.1) Fluid Source Laboratory Results - last 24 hr 04/18/18 04/18/18 04/18/18 06:23 06:23 09:10 WBC 8.4 D RBC 2.88 L Hgb 8.5 L Hct 25.3 L MCV 87.8 MCH 29.6 MCHC 33.7 RDW 20.9 H Plt Count 142 MPV 8.9 Neut % (Auto) 88.5 H Lymph % (Auto) 5.6 L Charles % (Auto) 5.6 Eos % (Auto) 0.0 Baso % (Auto) 0.3 Neut # (Auto) 7.5 H Lymph # (Auto) 0.5 L Charles # (Auto) 0.5 Eos # (Auto) 0.0 Baso # (Auto) 0.0 Neutrophils % (Manual) 85 H Band Neutrophils % 7 H Lymphocytes % (Manual) 4 L Monocytes % (Manual) 4 Platelet Estimate Normal Hypochromasia (manual) Slight Anisocytosis (manual) Moderate Sodium 131 L Potassium 4.8 Chloride 101 Carbon Dioxide 22 Anion Gap 13 BUN 45 H Creatinine 0.9 Est GFR ( Amer) > 60 Est GFR (Non-Af Amer) > 60 Random Glucose 151 H Calcium 7.8 L Total Bilirubin 0.5 AST 21 ALT 26 Alkaline Phosphatase 84 Total Protein 5.2 L Albumin 2.4 L Globulin 2.8 Albumin/Globulin Ratio 0.9 L Fluid Source Pleural 04/18/18 09:10 WBC RBC Hgb Hct MCV MCH MCHC RDW Plt Count MPV Neut % (Auto) Lymph % (Auto) Charles % (Auto) Eos % (Auto) Baso % (Auto) Neut # (Auto) Lymph # (Auto) Charles # (Auto) Eos # (Auto) Baso # (Auto) Neutrophils % (Manual) Band Neutrophils % Lymphocytes % (Manual) Monocytes % (Manual) Platelet Estimate Hypochromasia (manual) Anisocytosis (manual) Sodium Potassium Chloride Carbon Dioxide Anion Gap BUN Creatinine Est GFR ( Amer) Est GFR (Non-Af Amer) Random Glucose Calcium Total Bilirubin AST ALT Alkaline Phosphatase Total Protein Albumin Globulin Albumin/Globulin Ratio Fluid Source Pleural Fingerstick Blood Sugar Results: 117 Review of Systems - Review of Systems All systems: reviewed and no additional remarkable complaints except (HPI) Critical Care Progress Note - Nutrition Nutrition: Nutrition Category Date Time Status Heart Healthy Diet [DIET] Diets 04/17/18 Dinner Active Assessment/Plan - Assessment and Plan (Free Text) Assessment: 67 yo M with PMH of 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 s/p b/l thoracentesis. Repeat CT scan showed re-accumulated bilateral pleural effusions - S/p bilateral pigtail chest tubes. The patient again had recurrent pleural effusions and had a Right chest thoracostomy insertion x 2 w/ pleurodesis performed POD1. ICU consulted for cont monitoring. Neuro: - AAO x 3 - pain control with dilaudid 0.5mg Q6H Pulm: - Maintain SPO2 > 92% - Nasal cannula as needed - Incentive spirometry CV: - Hemodynamically stable - Started on Midodrine 2.5mg Q8H - F/u surgery consult and recs - Chest tube managment as per sx - F/u CT ordered - Maintain MAP > 65 - Cont Lasix 20mg IVP daily - D/c fluids GI: - HHD - GI ppx with protonix Endo: - maintain euglycemic Heme: - Hb 8.5 today - Monitor H/H Renal: - Monitor I and O - Replete electrolytes as needed ID: - Afebrile and wbc of 8.4 - Cont Rocephin (aortic valve thickening?) - Cont to monitor for any signs of infection - F/u septic work up GI/DVT ppx - protonix and HSQ Case and plan was reviewed and discussed in detail with Dr Breaux. <Marcelino Breaux - Last Filed: 04/18/18 15:05> CCU Objective - Vital Signs / Intake & Output Vital Signs (Last 4 hours): Vital Signs Temp Pulse Resp BP Pulse Ox 04/18/18 13:06 107 H 30 H 108/35 L 100 04/18/18 12:08 107/34 L 04/18/18 12:06 101 H 04/18/18 12:04 98 H 17 105/34 L 98 04/18/18 12:00 97.1 F L 99 04/18/18 11:06 97 H 19 94/24 L 100 Intake and Output (Last 8hrs): Intake & Output 04/18/18 04/18/18 04/18/18 06:59 14:59 22:59 Intake Total 496 192 Output Total 410 50 Balance 86 142 Weight 119 lb 11.376 oz Intake: Intake, IV Amount 336 92 Left Forearm 336 92 Oral 160 100 Output: Chest Tube Drainage 260 Right anterior medial 60 chest Right posterior medial 200 chest Urine 150 50 Urine, Voided 150 50 - Medications Active Medications: Active Medications Generic Name Dose Route Start Last Admin Trade Name Freq PRN Reason Stop Dose Admin Acetaminophen 650 mg 03/19/18 12:00 04/18/18 04:00 Tylenol 325mg Tab PO 650 mg Q4 PRN Administration Pain, Mild (1-3) Acetylcysteine 4 ml 04/18/18 12:30 Acetylcysteine 20% INH RQ6 ANIYAH Albuterol/Ipratropium 3 ml 04/18/18 12:00 04/18/18 12:01 Duoneb 3 Mg/0.5 Mg (3 Ml) Ud INH 3 ml RQ4 ANIYAH Administration Benzocaine/Menthol 1 keely 04/18/18 08:08 Cepacol Sore Throat MT Q2 PRN Sore Throat Heparin Sodium (Porcine) 5,000 units 04/17/18 22:00 04/18/18 15:00 Heparin SC 5,000 units Q8 ANIYAH Administration Hydromorphone HCl 0.5 mg 04/17/18 20:14 04/18/18 13:03 Dilaudid IVP 0.5 mg Q4H PRN Administration Pain, severe (8-10) Talc 2.5 gm/ Sodium Chloride 50 mls @ 0 mls/hr 04/17/18 12:00 PL 04/20/18 12:01 ONCE ANIYAH UD Piperacillin Sod/Tazobactam Sod 3.375 gm in 50 mls @ 100 mls/hr 04/18/18 14: 00 04/18/18 14:59 Zosyn 3.375 Gm Iv Premix IVPB 100 mls/hr Q6H ANIYAH Administration Protocol Sodium Chloride 1,000 mls @ 50 mls/hr 04/18/18 13:15 04/18/18 14:59 Sodium Chloride 0.9% IV 50 mls/hr .Q20H ANIYAH Administration Midodrine 2.5 mg 04/18/18 09:15 04/18/18 15:00 Proamatine PO 2.5 mg Q8 ANIYAH Administration Pantoprazole Sodium 40 mg 04/11/18 10:00 04/18/18 10:42 Protonix Ec Tab PO 40 mg DAILY ANIYAH Administration - Patient Studies Lab Studies: Lab Studies 04/18/18 04/18/18 04/18/18 Range/Units 09:10 09:10 06:23 WBC (4.8-10.8) K/uL RBC (4.40-5.90) Mil/uL Hgb (12.0-18.0) g/dL Hct (35.0-51.0) % MCV (80.0-94.0) fL MCH (27.0-31.0) pg MCHC (33.0-37.0) g/dL RDW (11.5-14.5) % Plt Count (130-400) K/uL MPV (7.2-11.7) fL Neut % (Auto) (50.0-75.0) % Lymph % (Auto) (20.0-40.0) % Charles % (Auto) (0.0-10.0) % Eos % (Auto) (0.0-4.0) % Baso % (Auto) (0.0-2.0) % Neut # (Auto) (1.8-7.0) K/uL Lymph # (Auto) (1.0-4.3) K/uL Charles # (Auto) (0.0-0.8) K/uL Eos # (Auto) (0.0-0.7) K/uL Baso # (Auto) (0.0-0.2) K/uL Neutrophils % (Manual) (50-75) % Band Neutrophils % (0-2) % Lymphocytes % (Manual) (20-40) % Monocytes % (Manual) (0-10) % Platelet Estimate (NORMAL) Hypochromasia (manual) Anisocytosis (manual) Sodium 131 L (132-148) mmol/L Potassium 4.8 (3.6-5.2) mmol/L Chloride 101 (98-107) mmol/L Carbon Dioxide 22 (22-30) mmol/L Anion Gap 13 (10-20) BUN 45 H (9-20) mg/dL Creatinine 0.9 (0.8-1.5) mg/dL Est GFR ( Amer) > 60 Est GFR (Non-Af Amer) > 60 Random Glucose 151 H (75-110) mg/dL Calcium 7.8 L (8.6-10.4) mg/dl Total Bilirubin 0.5 (0.2-1.3) mg/dL AST 21 (17-59) U/L ALT 26 (21-72) U/L Alkaline Phosphatase 84 (38-126) U/L Total Protein 5.2 L (6.3-8.3) g/dL Albumin 2.4 L (3.5-5.0) g/dL Globulin 2.8 (2.2-3.9) gm/dL Albumin/Globulin Ratio 0.9 L (1.0-2.1) Fluid Source Cancelled Pleural Fluid Appearance Cancelled Bloody (CLEAR) Fluid WBC Cancelled 761.0 H (0.0-300.0) /mm3 Fluid RBC Cancelled 16928.0 H (0.0-0.0) /mm3 Fluid Tot Cell Count Cancelled 100 H (0-0) Fluid Neutrophils Cancelled 37.0 H (0-0) % Fluid Lymphocytes Cancelled 61.0 H (0-0) % Fld Monocyte/Macrophag Cancelled 1 H (0-0) % Fluid Comment Cancelled 04/18/18 Range/Units 06:23 WBC 8.4 D (4.8-10.8) K/uL RBC 2.88 L (4.40-5.90) Mil/uL Hgb 8.5 L (12.0-18.0) g/dL Hct 25.3 L (35.0-51.0) % MCV 87.8 (80.0-94.0) fL MCH 29.6 (27.0-31.0) pg MCHC 33.7 (33.0-37.0) g/dL RDW 20.9 H (11.5-14.5) % Plt Count 142 (130-400) K/uL MPV 8.9 (7.2-11.7) fL Neut % (Auto) 88.5 H (50.0-75.0) % Lymph % (Auto) 5.6 L (20.0-40.0) % Charles % (Auto) 5.6 (0.0-10.0) % Eos % (Auto) 0.0 (0.0-4.0) % Baso % (Auto) 0.3 (0.0-2.0) % Neut # (Auto) 7.5 H (1.8-7.0) K/uL Lymph # (Auto) 0.5 L (1.0-4.3) K/uL Charles # (Auto) 0.5 (0.0-0.8) K/uL Eos # (Auto) 0.0 (0.0-0.7) K/uL Baso # (Auto) 0.0 (0.0-0.2) K/uL Neutrophils % (Manual) 85 H (50-75) % Band Neutrophils % 7 H (0-2) % Lymphocytes % (Manual) 4 L (20-40) % Monocytes % (Manual) 4 (0-10) % Platelet Estimate Normal (NORMAL) Hypochromasia (manual) Slight Anisocytosis (manual) Moderate Sodium (132-148) mmol/L Potassium (3.6-5.2) mmol/L Chloride (98-107) mmol/L Carbon Dioxide (22-30) mmol/L Anion Gap (10-20) BUN (9-20) mg/dL Creatinine (0.8-1.5) mg/dL Est GFR ( Amer) Est GFR (Non-Af Amer) Random Glucose (75-110) mg/dL Calcium (8.6-10.4) mg/dl Total Bilirubin (0.2-1.3) mg/dL AST (17-59) U/L ALT (21-72) U/L Alkaline Phosphatase (38-126) U/L Total Protein (6.3-8.3) g/dL Albumin (3.5-5.0) g/dL Globulin (2.2-3.9) gm/dL Albumin/Globulin Ratio (1.0-2.1) Fluid Source Fluid Appearance (CLEAR) Fluid WBC (0.0-300.0) /mm3 Fluid RBC (0.0-0.0) /mm3 Fluid Tot Cell Count (0-0) Fluid Neutrophils (0-0) % Fluid Lymphocytes (0-0) % Fld Monocyte/Macrophag (0-0) % Fluid Comment Laboratory Results - last 24 hr 04/18/18 04/18/18 04/18/18 06:23 06:23 09:10 WBC 8.4 D RBC 2.88 L Hgb 8.5 L Hct 25.3 L MCV 87.8 MCH 29.6 MCHC 33.7 RDW 20.9 H Plt Count 142 MPV 8.9 Neut % (Auto) 88.5 H Lymph % (Auto) 5.6 L Charles % (Auto) 5.6 Eos % (Auto) 0.0 Baso % (Auto) 0.3 Neut # (Auto) 7.5 H Lymph # (Auto) 0.5 L Charles # (Auto) 0.5 Eos # (Auto) 0.0 Baso # (Auto) 0.0 Neutrophils % (Manual) 85 H Band Neutrophils % 7 H Lymphocytes % (Manual) 4 L Monocytes % (Manual) 4 Platelet Estimate Normal Hypochromasia (manual) Slight Anisocytosis (manual) Moderate Sodium 131 L Potassium 4.8 Chloride 101 Carbon Dioxide 22 Anion Gap 13 BUN 45 H Creatinine 0.9 Est GFR ( Amer) > 60 Est GFR (Non-Af Amer) > 60 Random Glucose 151 H Calcium 7.8 L Total Bilirubin 0.5 AST 21 ALT 26 Alkaline Phosphatase 84 Total Protein 5.2 L Albumin 2.4 L Globulin 2.8 Albumin/Globulin Ratio 0.9 L Fluid Source Pleural Fluid Appearance Bloody Fluid WBC 761.0 H Fl[place] 506[address].0 H Fluid Tot Cell Count 100 H Fluid Neutrophils 37.0 H Fluid Lymphocytes 61.0 H Fld Monocyte/Macrophag 1 H Fluid Comment 04/18/18 09:10 WBC RBC Hgb Hct MCV MCH MCHC RDW Plt Count MPV Neut % (Auto) Lymph % (Auto) Charles % (Auto) Eos % (Auto) Baso % (Auto) Neut # (Auto) Lymph # (Auto) Charles # (Auto) Eos # (Auto) Baso # (Auto) Neutrophils % (Manual) Band Neutrophils % Lymphocytes % (Manual) Monocytes % (Manual) Platelet Estimate Hypochromasia (manual) Anisocytosis (manual) Sodium Potassium Chloride Carbon Dioxide Anion Gap BUN Creatinine Est GFR ( Amer) Est GFR (Non-Af Amer) Random Glucose Calcium Total Bilirubin AST ALT Alkaline Phosphatase Total Protein Albumin Globulin Albumin/Globulin Ratio Fluid Source Cancelled Fluid Appearance Cancelled Fluid WBC Cancelled Fluid RBC Cancelled Fluid Tot Cell Count Cancelled Fluid Neutrophils Cancelled Fluid Lymphocytes Cancelled Fld Monocyte/Macrophag Cancelled Fluid Comment Cancelled Critical Care Progress Note - Nutrition Nutrition: Nutrition Category Date Time Status Heart Healthy Diet [DIET] Diets 04/17/18 Dinner Active Assessment/Plan - Assessment and Plan (Free Text) Assessment: PAtient seen and examiend at bedside. Patient s/p pleurodesis -PAtietn has pneumothorax -pneumothorax being managed by pulmonary and CT service. -d/w Dr. Alarcon and Dr. Michel - Date & Time Date: 04/18/18 Time: 15:05
[2018-04-18] MEDS: Pantoprazole 40 mg EC Tab PO SCH (10:42)
[2018-04-18] MEDS: cefTRIAXone 2 GM in Sodium Chloride 0.9% 100 ML IVPB SCH (10:42)
[2018-04-18 11:21] LABS: BF GROSS APPEARANCE BLOODY (CLEAR); BODY FLUID MONO/MACROPHAGE 1 % (0-0); BODY FLUID TOTAL COUNT 100 (0-0)
--- NOTE | 2018-04-18 11:49 | CT ---
Date of service: 04/18/2018 PROCEDURE: CT Chest without contrast HISTORY: Airleak s/p R thoracostomy tube insertion. Status post pleurodesis. History of rectal malignancy. COMPARISON: Chest x-ray 04/18/2018 TECHNIQUE: Contiguous axial images were obtained through the chest without intravenous contrast enhancement. Sagittal and coronal reconstructions were performed. Radiation dose (DLP): 468.70 mGy-cm. This CT exam was performed using one or more of the following dose reduction techniques: Automated exposure control, adjustment of the mA and/or kV according to patient size, and/or use of iterative reconstruction technique. FINDINGS: LUNGS: Small right pneumothorax. Two right chest tubes extend to the apex. Trace right pleural effusion. Almost complete atelectasis of right lower lobe with minimal residual aerated anterior basal segment of right lower lobe. There is a mucous plug obstructing the bronchus intermedius extending into the lower lobe bronchus and into the proximal aspect of the middle lobe bronchus responsible for the lower lobe atelectasis. There is compressive atelectasis in the left lower lobe secondary to a small to moderate left pleural effusion. Multiple bilateral ill-defined pulmonary masses most likely reflecting metastatic disease though infectious/inflammatory etiology may be considered in the appropriate clinical setting. Largest such mass is seen in the right middle lobe abutting the major fissure, measuring 19 mm. MEDIASTINUM: Unremarkable thoracic aorta. No aneurysm. Mild cardiomegaly. Trace pericardial effusion. Coronary arterial calcification. Main pulmonary artery unremarkable. No vascular congestion. No lymphadenopathy. PLEURA: Trace right pleural effusion. Small moderate left pleural effusion. Small right pneumothorax as above. No left pneumothorax. BONES: No fracture. No destructive lesion. UPPER ABDOMEN: Grossly unremarkable. OTHER FINDINGS: None. IMPRESSION: Probable mucous plug obstructing bronchus intermedius and right lower lobe bronchus with almost complete atelectasis of right lower lobe. Two right chest tubes. Small right apical pneumothorax. Trace right pleural effusion and small to moderate left pleural effusion. Probable bilateral pulmonary metastasis. These findings were discussed personally with Dr. Dutton at 11:40 a.m. on 04/18/2018.
[2018-04-18] MEDS: Albuterol-Ipratrop 3 mg / 0.5 (3 ml) UD INH SCH ×3 (12:01→19:49)
--- NOTE | 2018-04-18 12:18 | CP.PCM.PN ---
Subjective - Date & Time of Evaluation Date of Evaluation: 04/18/18 Time of Evaluation: 09:30 - Subjective Subjective: Patient seen and examined Status post chest tube insertion x2 and pleurodesis is yesterday CAT scan of the chest showed pneumothorax patient denies shortness of breath Afebrile Objective - Vital Signs/Intake and Output Vital Signs (last 24 hours): Temp Pulse Resp BP Pulse Ox 98 F 101 H 33 H 107/34 L 100 04/18/18 04:00 04/18/18 12:06 04/18/18 06:00 04/18/18 12:08 04/18/18 06:00 Intake and Output: 04/18/18 04/18/18 06:59 18:59 Intake Total 764 Output Total 410 Balance 354 - Medications Medications: Current Medications Acetaminophen (Tylenol 325mg Tab) 650 mg PO Q4 PRN PRN Reason: Pain, Mild (1-3) Last Admin: 04/18/18 04:00 Dose: 650 mg Albuterol/Ipratropium (Duoneb 3 Mg/0.5 Mg (3 Ml) Ud) 3 ml INH RQ4 ANIYAH Last Admin: 04/18/18 12:01 Dose: 3 ml Benzocaine/Menthol (Cepacol Sore Throat) 1 keely MT Q2 PRN PRN Reason: Sore Throat Furosemide (Lasix) 20 mg IVP DAILY [facility] Last Admin: 04/18/18 12:08 Dose: 20 mg Heparin Sodium (Porcine) (Heparin) 5,000 units SC Q8 ANIYAH Last Admin: 04/18/18 07:31 Dose: 5,000 units Hydromorphone HCl (Dilaudid) 0.5 mg IVP Q4H PRN PRN Reason: Pain, severe (8-10) Talc 2.5 gm/ Sodium Chloride 50 mls @ 0 mls/hr PL ONCE ANIYAH PRN Reason: UD Stop: 04/20/18 12:01 Piperacillin Sod/Tazobactam Sod (Zosyn 3.375 Gm Iv Premix) 3.375 gm in 50 mls @ 100 mls/hr IVPB Q6H ANIYAH PRN Reason: Protocol Midodrine (Proamatine) 2.5 mg PO Q8 ANIYAH Last Admin: 04/18/18 10:26 Dose: 2.5 mg Pantoprazole Sodium (Protonix Ec Tab) 40 mg PO DAILY ANIYAH Last Admin: 04/18/18 10:42 Dose: 40 mg - Labs Labs: 04/18/18 06:23 04/18/18 06:23 PT 12.2 SECONDS (9.7-12.2) 04/17/18 07:07 INR 1.1 04/17/18 07:07 APTT 29 SECONDS (21-34) 04/17/18 07:07 - Head Exam Head Exam: ATRAUMATIC, NORMOCEPHALIC - ENT Exam ENT Exam: Mucous Membranes Moist - Neck Exam Neck Exam: Normal Inspection - Respiratory Exam Respiratory Exam: Decreased Breath Sounds - Cardiovascular Exam Cardiovascular Exam: REGULAR RHYTHM - GI/Abdominal Exam GI & Abdominal Exam: Soft, Normal Bowel Sounds - Extremities Exam Extremities Exam: Normal Inspection Assessment and Plan (1) Bilateral pleural effusion Assessment & Plan: Status post right pleurodesis and two chest tubes insertion CAT scan of the chest consist pneumothorax and right lower lobe atelectasis/ mucous plug Patient in no respiratory distress Mucomyst/nebulizer treatment and chest PT Continue ICU observation Status: Acute (2) Lung nodule < 6cm on CT Status: Acute
--- NOTE | 2018-04-18 13:12 | CP.PCM.PN ---
Subjective - Date & Time of Evaluation Date of Evaluation: 04/18/18 Time of Evaluation: 13:10 - Subjective Subjective: s/p pleuradesis chest tubes in place lung mets notes Na still low; moderate pre-renal numbers alert, feels same Objective - Vital Signs/Intake and Output Vital Signs (last 24 hours): Temp Pulse Resp BP Pulse Ox 98 F 101 H 33 H 107/34 L 100 04/18/18 04:00 04/18/18 12:06 04/18/18 06:00 04/18/18 12:08 04/18/18 06:00 Intake and Output: 04/18/18 04/18/18 06:59 18:59 Intake Total 764 Output Total 410 Balance 354 - Medications Medications: Current Medications Acetaminophen (Tylenol 325mg Tab) 650 mg PO Q4 PRN PRN Reason: Pain, Mild (1-3) Last Admin: 04/18/18 04:00 Dose: 650 mg Acetylcysteine (Acetylcysteine 20%) 4 ml INH RQ6 [facility] Albuterol/Ipratropium (Duoneb 3 Mg/0.5 Mg (3 Ml) Ud) 3 ml INH RQ4 [facility] Last Admin: 04/18/18 12:01 Dose: 3 ml Benzocaine/Menthol (Cepacol Sore Throat) [address] Q2 PRN PRN Reason: Sore Throat Heparin Sodium (Porcine) (Heparin) 5,000 units SC Q8 [facility] Last Admin: 04/18/18 07:31 Dose: 5,000 units Hydromorphone HCl (Dilaudid) 0.5 mg IVP Q4H PRN PRN Reason: Pain, severe (8-10) Last Admin: 04/18/18 13:03 Dose: 0.5 mg Talc 2.5 gm/ Sodium Chloride 50 mls @ 0 mls/hr PL ONCE [facility]AH PRN Reason: UD Stop: 04/20/18 12:01 Piperacillin Sod/Tazobactam Sod (Zosyn 3.375 Gm Iv Premix) 3.375 gm in 50 mls @ 100 mls/hr IVPB Q6H [facility] PRN Reason: Protocol Midodrine (Proamatine) 2.5 mg PO Q8 [facility] Last Admin: 04/18/18 10:26 Dose: 2.5 mg Pantoprazole Sodium (Protonix Ec Tab) 40 mg PO DAILY [facility] Last Admin: 04/18/18 10:42 Dose: 40 mg - Labs Labs: 04/18/18 06:23 04/18/18 06:23 PT 12.2 SECONDS (9.7-12.2) 04/17/18 07:07 INR 1.1 04/17/18 07:07 APTT 29 SECONDS (21-34) 04/17/18 07:07 - Constitutional Appears: No Acute Distress, Cachectic, Chronically Ill - Head Exam Head Exam: ATRAUMATIC, NORMAL INSPECTION - Eye Exam Eye Exam: EOMI, Normal appearance - Neck Exam Neck Exam: Normal Inspection. absent: Tenderness - Respiratory Exam Respiratory Exam: Decreased Breath Sounds, NORMAL BREATHING PATTERN - Cardiovascular Exam Cardiovascular Exam: REGULAR RHYTHM, +S1 - GI/Abdominal Exam GI & Abdominal Exam: Soft. absent: Tenderness - Extremities Exam Extremities Exam: Normal Inspection. absent: Tenderness - Neurological Exam Neurological Exam: Awake, CN II-XII Intact - Skin Skin Exam: Dry, Warm Assessment and Plan (1) Rectal cancer Status: Acute (2) Pleural effusion Status: Acute (3) Hyponatremia Status: Acute (4) Acute non-ST elevation myocardial infarction (NSTEMI) Status: Acute (5) Rectal adenocarcinoma Status: Acute - Assessment and Plan (Free Text) Plan: Continue mild IV hydration with NS
--- NOTE | 2018-04-18 14:11 | CP.PCM.PN ---
Subjective - Date & Time of Evaluation Date of Evaluation: 04/18/18 Time of Evaluation: 13:54 - Subjective Subjective: Pt s/e. No sob. vss chest tube-80/280/yesterday-air leak a>p cxr-right apical pneumo and early atelectasis right LL. (cxr postop yesterday- complete expansion of right lung) and no air leak. ct chest this am: right anterior pneumo and complete atelectasis of right LL. with mucus plug in the interm br of right lobe. Immediate solution for the pneumothorax is to reexpand the right lower lobe by bronchoscopy (remove the mucous plug)or alternative would be vigorous pulm toilet: Rx approach is to be decided by ICU and Hospital Carrier. ct chest today shows bilateral nodular densities consistent with pulm met. a/p:1. Right ant pneumothorax and small post pneumo. 2. Atelectasis right LL. from mucus plug. 3. Unless the lung reexpand , it would be almost impossible to resove pneumothorax. 4. Continue current supportove care. Objective - Vital Signs/Intake and Output Vital Signs (last 24 hours): Temp Pulse Resp BP Pulse Ox 97.1 F L 107 H 30 H 108/35 L 100 04/18/18 12:00 04/18/18 13:06 04/18/18 13:06 04/18/18 13:06 04/18/18 13:06 Intake and Output: 04/18/18 04/18/18 06:59 18:59 Intake Total 764 Output Total 410 Balance 354 - Medications Medications: Current Medications Acetaminophen (Tylenol 325mg Tab) 650 mg PO Q4 PRN PRN Reason: Pain, Mild (1-3) Last Admin: 04/18/18 04:00 Dose: 650 mg Acetylcysteine (Acetylcysteine 20%) 4 ml INH RQ6 ANIYAH Albuterol/Ipratropium (Duoneb 3 Mg/0.5 Mg (3 Ml) Ud) 3 ml INH RQ4 [facility] Last Admin: 04/18/18 12:01 Dose: 3 ml Benzocaine/Menthol (Cepacol Sore Throat) [address] MT Q2 PRN PRN Reason: Sore Throat Heparin Sodium (Porcine) (Heparin) 5,000 units SC Q8 [facility] Last Admin: 04/18/18 07:31 Dose: 5,000 units Hydromorphone HCl (Dilaudid) 0.5 mg IVP Q4H PRN PRN Reason: Pain, severe (8-10) Last Admin: 04/18/18 13:03 Dose: 0.5 mg Talc 2.5 gm/ Sodium Chloride 50 mls @ 0 mls/hr PL ONCE ANIYAH PRN Reason: UD Stop: 04/20/18 12:01 Piperacillin Sod/Tazobactam Sod (Zosyn 3.375 Gm Iv Premix) 3.375 gm in 50 mls @ 100 mls/hr IVPB Q6H [facility] PRN Reason: Protocol Sodium Chloride (Sodium Chloride 0.9%) 1,000 mls @ 50 mls/hr IV .Q20H [facility] Midodrine (Proamatine) 2.5 mg PO Q8 [facility] Last Admin: 04/18/18 10:26 Dose: 2.5 mg Pantoprazole Sodium (Protonix Ec Tab) 40 mg PO DAILY [facility] Last Admin: 04/18/18 10:42 Dose: 40 mg - Labs Labs: 04/18/18 06:23 04/18/18 06:23 PT 12.2 SECONDS (9.7-12.2) 04/17/18 07:07 INR 1.1 04/17/18 07:07 APTT 29 SECONDS (21-34) 04/17/18 07:07
[2018-04-18] MEDS: Piperacill/Tazo 3.375gm in Dex 3.375 GM/50 ML BAG IVPB SCH ×2 (14:59→20:00)
[2018-04-18] MEDS: Sodium Chloride 0.9% 1,000 ML IV SCH (14:59)
[2018-04-18] MEDS: Acetylcysteine 20% Inhal Soln (4ml) INH SCH ×2 (16:15→19:49)
--- NOTE | 2018-04-18 17:48 | CP.PCM.PN ---
Subjective - Date & Time of Evaluation Date of Evaluation: 04/18/18 Time of Evaluation: 08:00 - Subjective Subjective: awake alert NAD Objective - Vital Signs/Intake and Output Vital Signs (last 24 hours): Temp Pulse Resp BP Pulse Ox 97.1 F L 109 H 19 113/35 L 100 04/18/18 12:00 04/18/18 17:06 04/18/18 17:06 04/18/18 17:06 04/18/18 17:06 Intake and Output: 04/18/18 04/18/18 06:59 18:59 Intake Total 764 302 Output Total 410 100 Balance 354 202 - Medications Medications: Current Medications Acetaminophen (Tylenol 325mg Tab) 650 mg PO Q4 PRN PRN Reason: Pain, Mild (1-3) Last Admin: 04/18/18 04:00 Dose: 650 mg Acetylcysteine (Acetylcysteine 20%) 4 ml INH RQ6 [facility] Last Admin: 04/18/18 16:15 Dose: 4 ml Albuterol/Ipratropium (Duoneb 3 Mg/0.5 Mg (3 Ml) Ud) 3 ml INH RQ4 [facility] Last Admin: 04/18/18 16:14 Dose: 3 ml Benzocaine/Menthol (Cepacol Sore Throat) [address] MT Q2 PRN PRN Reason: Sore Throat Heparin Sodium (Porcine) (Heparin) 5,000 units SC Q8 [facility] Last Admin: 04/18/18 15:00 Dose: 5,000 units Hydromorphone HCl (Dilaudid) 0.5 mg IVP Q4H PRN PRN Reason: Pain, severe (8-10) Last Admin: 04/18/18 13:03 Dose: 0.5 mg Talc 2.5 gm/ Sodium Chloride 50 mls @ 0 mls/hr PL ONCE ANIYAH PRN Reason: UD Stop: 04/20/18 12:01 Piperacillin Sod/Tazobactam Sod (Zosyn 3.375 Gm Iv Premix) 3.375 gm in 50 mls @ 100 mls/hr IVPB Q6H [facility] PRN Reason: Protocol Last Admin: 04/18/18 14:59 Dose: 100 mls/hr Sodium Chloride (Sodium Chloride 0.9%) 1,000 mls @ 50 mls/hr IV .Q20H [facility] Last Admin: 04/18/18 14:59 Dose: 50 mls/hr Midodrine (Proamatine) 2.5 mg PO Q8 [facility] Last Admin: 04/18/18 15:00 Dose: 2.5 mg Pantoprazole Sodium (Protonix Ec Tab) 40 mg PO DAILY [facility] Last Admin: 04/18/18 10:42 Dose: 40 mg - Labs Labs: 04/18/18 06:23 04/18/18 06:23 PT 12.2 SECONDS (9.7-12.2) 04/17/18 07:07 INR 1.1 04/17/18 07:07 APTT 29 SECONDS (21-34) 04/17/18 07:07 - Constitutional Appears: Non-toxic, Chronically Ill - Head Exam Head Exam: NORMOCEPHALIC - Eye Exam Eye Exam: absent: PERRL, Scleral icterus Pupil Exam: Unequal. absent: NORMAL ACCOMODATION - ENT Exam ENT Exam: Mucous Membranes Dry, TM's Normal Bilaterally - Neck Exam Neck Exam: absent: Lymphadenopathy - Respiratory Exam Respiratory Exam: Decreased Breath Sounds, Rhonchi Additional comments: chest tube in place - Cardiovascular Exam Cardiovascular Exam: REGULAR RHYTHM - GI/Abdominal Exam GI & Abdominal Exam: Distended, Soft. absent: Tenderness - Rectal Exam Rectal Exam: Deferred - Exam Exam: NORMAL INSPECTION - Extremities Exam Extremities Exam: absent: Pedal Edema - Back Exam Back Exam: absent: CVA tenderness (L), CVA tenderness (R) Assessment and Plan (1) Anemia Status: Acute (2) Pneumonia Status: Resolved (3) Lower GI bleeding Status: Resolved (4) Mass in rectum Status: Acute (5) Rectal adenocarcinoma Status: Acute (6) Endocarditis Status: Acute - Assessment and Plan (Free Text) Assessment: cont iv rx CT surgery follow up prognosis remains guarded
--- NOTE | 2018-04-18 20:48 | CP.PCM.PN ---
Subjective - Date & Time of Evaluation Date of Evaluation: 04/18/18 Time of Evaluation: 16:00 - Subjective Subjective: Patient has less right sided chest pain. Right chest tubes draining jeffrey- colored fluid. Afebrile. Objective - Vital Signs/Intake and Output Vital Signs (last 24 hours): Temp Pulse Resp BP Pulse Ox 98.4 F 106 H 20 104/26 L 100 04/18/18 20:00 04/18/18 20:00 04/18/18 20:00 04/18/18 20:00 04/18/18 20:00 Intake and Output: 04/18/18 04/19/18 18:59 06:59 Intake Total 452 50 Output Total 380 Balance 72 50 - Medications Medications: Current Medications Acetaminophen (Tylenol 325mg Tab) 650 mg PO Q4 PRN PRN Reason: Pain, Mild (1-3) Last Admin: 04/18/18 04:00 Dose: 650 mg Acetylcysteine (Acetylcysteine 20%) 4 ml INH RQ6 [facility] Last Admin: 04/18/18 19:49 Dose: 4 ml Albuterol/Ipratropium (Duoneb 3 Mg/0.5 Mg (3 Ml) Ud) 3 ml INH RQ4 [facility] Last Admin: 04/18/18 19:49 Dose: 3 ml Benzocaine/Menthol (Cepacol Sore Throat) [address] MT Q2 PRN PRN Reason: Sore Throat Heparin Sodium (Porcine) (Heparin) 5,000 units SC Q8 [facility] Last Admin: 04/18/18 15:00 Dose: 5,000 units Hydromorphone HCl (Dilaudid) 0.5 mg IVP Q4H PRN PRN Reason: Pain, severe (8-10) Last Admin: 04/18/18 13:03 Dose: 0.5 mg Talc 2.5 gm/ Sodium Chloride 50 mls @ 0 mls/hr PL ONCE ANIYAH PRN Reason: UD Stop: 04/20/18 12:01 Piperacillin Sod/Tazobactam Sod (Zosyn 3.375 Gm Iv Premix) 3.375 gm in 50 mls @ 100 mls/hr IVPB Q6H [facility] PRN Reason: Protocol Last Admin: 04/18/18 20:00 Dose: 100 mls/hr Sodium Chloride (Sodium Chloride 0.9%) 1,000 mls @ 50 mls/hr IV .Q20H [facility] Last Admin: 04/18/18 14:59 Dose: 50 mls/hr Midodrine (Proamatine) 2.5 mg PO Q8 [facility] Last Admin: 04/18/18 15:00 Dose: 2.5 mg Pantoprazole Sodium (Protonix Ec Tab) 40 mg PO DAILY [facility] Last Admin: 04/18/18 10:42 Dose: 40 mg Tamsulosin HCl (Flomax) 0.4 mg PO DAILY [facility] - Labs Labs: 04/18/18 06:23 04/18/18 06:23 PT 12.2 SECONDS (9.7-12.2) 04/17/18 07:07 INR 1.1 04/17/18 07:07 APTT 29 SECONDS (21-34) 04/17/18 07:07 - Constitutional Appears: Cachectic, Chronically Ill - Head Exam Head Exam: NORMOCEPHALIC - Eye Exam Eye Exam: Normal appearance - ENT Exam ENT Exam: Normal Exam - Neck Exam Neck Exam: Normal Inspection - Respiratory Exam Respiratory Exam: Rhonchi Additional comments: Rhonchi right chest. - Cardiovascular Exam Cardiovascular Exam: REGULAR RHYTHM, Murmur - GI/Abdominal Exam GI & Abdominal Exam: Soft, Normal Bowel Sounds - Extremities Exam Extremities Exam: Normal Inspection - Back Exam Back Exam: NORMAL INSPECTION - Neurological Exam Neurological Exam: Alert, Awake, Oriented x3 - Psychiatric Exam Psychiatric exam: Anxious - Skin Skin Exam: Dry, Normal Color, Warm Assessment and Plan (1) Lower GI bleeding Status: Resolved (2) Anemia Assessment & Plan: Secondary to rectal blleding Status: Acute (3) Pneumonia Status: Resolved (4) Hyperkalemia Status: Resolved (5) Hyponatremia Status: Acute (6) Acute diastolic (congestive) heart failure Status: Resolved (7) Acute bacterial endocarditis Assessment & Plan: On IV Rocephin. Status: Acute (8) Acute non-ST elevation myocardial infarction (NSTEMI) Status: Acute (9) Bilateral pleural effusion Assessment & Plan: Right pleurodesis POD # 1. Status: Acute
[2018-04-19] MEDS: Albuterol-Ipratrop 3 mg / 0.5 (3 ml) UD INH SCH ×7 (00:21→23:35)
[2018-04-19] MEDS: Piperacill/Tazo 3.375gm in Dex 3.375 GM/50 ML BAG IVPB SCH ×4 (01:10→20:05)
[2018-04-19] MEDS: Acetylcysteine 20% Inhal Soln (4ml) INH SCH ×4 (03:32→19:44)
[2018-04-19 06:39] LABS: BASO % 0.1 % (0.0-2.0); HEMOGLOBIN 8.4 g/dL (12.0-18.0); LYMPH # 0.5 K/uL (1.0-4.3); MEAN CORPUSCULAR HEMOGLOBIN 29.8 pg (27.0-31.0); MEAN CORPUSCULAR HGB CONC 33.4 g/dL (33.0-37.0); MEAN PLATELET VOLUME 8.2 fL (7.2-11.7); MONO # 0.4 K/uL (0.0-0.8); MONO % 4.5 % (0.0-10.0); NEUT # 8.1 K/uL (1.8-7.0); NEUT % 89.4 % (50.0-75.0); PLATELET COUNT 176 K/uL (130-400); RBC 2.81 Mil/uL (4.40-5.90); RED CELL DISTRIBUTION WIDTH 20.2 % (11.5-14.5)
[2018-04-19 06:51] LABS: ALBUMIN 2.6 g/dL (3.5-5.0); ALT/SGPT 24 U/L (21-72); AST/SGOT 17 U/L (17-59); BLOOD UREA NITROGEN 46 mg/dL (9-20); CALCIUM 7.9 mg/dl (8.6-10.4); GFR NON-AFRICAN AMERICAN > 60
--- NOTE | 2018-04-19 07:06 | CP.PCM.PN ---
Subjective - Date & Time of Evaluation Date of Evaluation: 04/19/18 Time of Evaluation: 07:04 - Subjective Subjective: CT surgery progress note for Dr. Sharri Alarcon, PGY-2 Pt S & E at bedside at 0610 Pt resting comfortably in bed, no acute events overnight as per nursing. Pt only asking for Tylenol for discomfort. No complaints at this time when aroused. Posterior CT with 150cc serosanguinous output over 12hrs Anterior CT with 40cc serosanguinous output over 12hrs Objective - Vital Signs/Intake and Output Vital Signs (last 24 hours): Temp Pulse Resp BP Pulse Ox 97 F L 96 H 21 92/24 L 100 04/19/18 04:00 04/19/18 06:00 04/19/18 06:00 04/19/18 06:00 04/19/18 06:00 Intake and Output: 04/19/18 04/19/18 06:59 18:59 Intake Total 870 Output Total 540 Balance 330 - Medications Medications: Current Medications Acetaminophen (Tylenol 325mg Tab) 650 mg PO Q4 PRN PRN Reason: Pain, Mild (1-3) Last Admin: 04/18/18 21:40 Dose: 650 mg Acetylcysteine (Acetylcysteine 20%) 4 ml INH RQ6 [facility] Last Admin: 04/19/18 03:32 Dose: 4 ml Albuterol/Ipratropium (Duoneb 3 Mg/0.5 Mg (3 Ml) Ud) 3 ml INH RQ4 [facility] Last Admin: 04/19/18 03:32 Dose: 3 ml Benzocaine/Menthol (Cepacol Sore Throat) [address] MT Q2 PRN PRN Reason: Sore Throat Heparin Sodium (Porcine) (Heparin) 5,000 units SC Q8 [facility] Last Admin: 04/19/18 05:45 Dose: 5,000 units Hydromorphone HCl (Dilaudid) 0.5 mg IVP Q4H PRN PRN Reason: Pain, severe (8-10) Last Admin: 04/18/18 13:03 Dose: 0.5 mg Talc 2.5 gm/ Sodium Chloride 50 mls @ 0 mls/hr PL ONCE NAIYAH PRN Reason: UD Stop: 04/20/18 12:01 Piperacillin Sod/Tazobactam Sod (Zosyn 3.375 Gm Iv Premix) 3.375 gm in 50 mls @ 100 mls/hr IVPB Q6H [facility] PRN Reason: Protocol Last Admin: 04/19/18 01:10 Dose: 100 mls/hr Sodium Chloride (Sodium Chloride 0.9%) 1,000 mls @ 50 mls/hr IV .Q20H [facility] Last Admin: 04/18/18 14:59 Dose: 50 mls/hr Midodrine (Proamatine) 2.5 mg PO Q8 [facility] Last Admin: 04/19/18 05:45 Dose: 2.5 mg Pantoprazole Sodium (Protonix Ec Tab) 40 mg PO DAILY [facility] Last Admin: 04/18/18 10:42 Dose: 40 mg Tamsulosin HCl (Flomax) 0.4 mg PO DAILY [facility] - Labs Labs: 04/19/18 06:26 04/19/18 06:26 PT 12.2 SECONDS (9.7-12.2) 04/17/18 07:07 INR 1.1 04/17/18 07:07 APTT 29 SECONDS (21-34) 04/17/18 07:07 - Constitutional Appears: Non-toxic, No Acute Distress - Head Exam Head Exam: ATRAUMATIC, NORMOCEPHALIC. absent: NORMAL INSPECTION (lesion over left face/cheek) - Eye Exam Eye Exam: EOMI. absent: Normal appearance - ENT Exam ENT Exam: Mucous Membranes Moist, Normal Exam - Respiratory Exam Respiratory Exam: NORMAL BREATHING PATTERN. absent: Respiratory Distress Additional comments: Right chest wall with dressing in place-clean/dry/intact - Cardiovascular Exam Cardiovascular Exam: REGULAR RHYTHM, +S1, +S2 - GI/Abdominal Exam GI & Abdominal Exam: Soft. absent: Tenderness - Neurological Exam Additional comments: sleeping, but arousable - Psychiatric Exam Psychiatric exam: Normal Affect, Normal Mood - Skin Skin Exam: Dry, Normal Color, Warm Assessment and Plan - Assessment and Plan (Free Text) Assessment: 67M POD#2 Right thoracostomy tube insertion x 2 with pleurodesis now with hypotension in ICU CT Chest with small anterior and posterior pneumothorax yesterday, RLL atelectasis Plan: Monitor CT output Daily CXR Monitor VS Further mgmt as per primary & ICU teams Will DW Dr. Marilu Alarcon, PGY-2
--- NOTE | 2018-04-19 07:28 | OP ---
PROCEDURE DATE: 04/17/2018 PREOPERATIVE DIAGNOSES: 1. Persistent bilateral pleural effusion. 2. Cancer of rectum. POSTOPERATIVE DIAGNOSES: 1. Persistent bilateral pleural effusion. 2. Cancer of the rectum. SURGICAL PROCEDURES PERFORMED: Tube thoractomized to right chest x2 and pleural biopsies x2. SURGEON: Carlos Michel MD [employer]: Lesly Alarcon DO ANESTHESIOLOGIST: Dr. Osorio. DESCRIPTION OF PROCEDURE: The patient was taken to the operating room where under satisfactory endotracheal general anesthesia, the patient was placed in a supine position in the operating table, prepared and draped in a sterile fashion. Next, anterior tubal thoracostomy was initially carried out with a 26-Yemeni chest tube; however, there were two available, therefore we were to use the only available size of the chest tube in the OR which was 32-Yemeni chest tube. This was inserted through a 1-inch long incision in the sixth intercostal space in the anterior axillary line, and the incision was deepened to the pleural cavity using blunt dissection as well as digital finger dissection. The pleural cavity was explored next with index finger for any adhesions and then under fluoroscopic guidance, the chest tube was advanced to the apex. Some difficulty was encountered as the patient continued to enter the major tissue, however, eventually was able to track to tip to the apex. Before insertion of the anterior chest tube, pleural biopsy was carried out using right angle clamps and was sent out for pathological studies. Pleural effusion was next collected into two Lukens tubes which were subsequently sent out for cytological, cell count and microbiological study as was routine chemical analysis. Similarly, 32-Yemeni chest tube was inserted through eighth intercostal space in mid axillary line and under direct fluoroscopic guidance, the chest tube was advanced to the apex posteriorly. After satisfactory confirmation of the positions of the chest tubes, these were secured to the skin edge with 0 silk sutures in the usual manner. Finally, talc slurry pleurodesis was carried out in the usual manner by instilling premixed talc solution (2.5 g per 50 mL of normal saline) and three syringes of the talc solutions were used to complete the pleurodesis. After satisfactory instillation of the talc, chest tube was then connected to [place] draining system. However, tube was clamped close to the skin which later to be removed following maneuvers to spread talc solutions throughout the pleural cavity. Sterile dressings were applied and tapered in the usual manner. The patient tolerated the procedure well and was transported to recovery room, intubated with good vital signs. Estimated blood loss was 5 mL. Sponge, needle and instrument counts were correct. Carlos Michel MD
--- NOTE | 2018-04-19 07:30 | CP.PCM.PN ---
Subjective - Date & Time of Evaluation Date of Evaluation: 04/19/18 Time of Evaluation: 07:25 - Subjective Subjective: afebrile when last measured sodium 132 and stable renal function stable comfortable in bed on mask oxygen awake conversant follows commands SHAKIR barajas dizziness no increase sob no chest or abd pain no nausea vomiting no BM Objective - Vital Signs/Intake and Output Vital Signs (last 24 hours): Temp Pulse Resp BP Pulse Ox 97 F L 96 H 21 92/24 L 100 04/19/18 04:00 04/19/18 06:00 04/19/18 06:00 04/19/18 06:00 04/19/18 06:00 Intake and Output: 04/19/18 04/19/18 06:59 18:59 Intake Total 870 Output Total 540 Balance 330 - Medications Medications: Current Medications Acetaminophen (Tylenol 325mg Tab) 650 mg PO Q4 PRN PRN Reason: Pain, Mild (1-3) Last Admin: 04/18/18 21:40 Dose: 650 mg Acetylcysteine (Acetylcysteine 20%) 4 ml INH RQ6 [facility] Last Admin: 04/19/18 03:32 Dose: 4 ml Albuterol/Ipratropium (Duoneb 3 Mg/0.5 Mg (3 Ml) Ud) 3 ml INH RQ4 [facility] Last Admin: 04/19/18 03:32 Dose: 3 ml Benzocaine/Menthol (Cepacol Sore Throat) [address] Q2 PRN PRN Reason: Sore Throat Heparin Sodium (Porcine) (Heparin) 5,000 units SC Q8 [facility] Last Admin: 04/19/18 05:45 Dose: 5,000 units Hydromorphone HCl (Dilaudid) 0.5 mg IVP Q4H PRN PRN Reason: Pain, severe (8-10) Last Admin: 04/18/18 13:03 Dose: 0.5 mg Talc 2.5 gm/ Sodium Chloride 50 mls @ 0 mls/hr PL ONCE [facility] PRN Reason: UD Stop: 04/20/18 12:01 Piperacillin Sod/Tazobactam Sod (Zosyn 3.375 Gm Iv Premix) 3.375 gm in 50 mls @ 100 mls/hr IVPB Q6H [facility] PRN Reason: Protocol Last Admin: 04/19/18 01:10 Dose: 100 mls/hr Sodium Chloride (Sodium Chloride 0.9%) 1,000 mls @ 50 mls/hr IV .Q20H [facility] Last Admin: 04/18/18 14:59 Dose: 50 mls/hr Midodrine (Proamatine) 2.5 mg PO Q8 [facility] Last Admin: 04/19/18 05:45 Dose: 2.5 mg Pantoprazole Sodium (Protonix Ec Tab) 40 mg PO DAILY [facility] Last Admin: 04/18/18 10:42 Dose: 40 mg Tamsulosin HCl (Flomax) 0.4 mg PO DAILY [facility] - Labs Labs: 04/19/18 06:26 04/19/18 06:26 PT 12.2 SECONDS (9.7-12.2) 04/17/18 07:07 INR 1.1 04/17/18 07:07 APTT 29 SECONDS (21-34) 04/17/18 07:07 - Constitutional Appears: No Acute Distress, Cachectic - Respiratory Exam Respiratory Exam: Clear to Ausculation Bilateral - Cardiovascular Exam Cardiovascular Exam: REGULAR RHYTHM - GI/Abdominal Exam GI & Abdominal Exam: Soft. absent: Distended, Tenderness - Extremities Exam Extremities Exam: absent: Calf Tenderness, Pedal Edema - Psychiatric Exam Psychiatric exam: absent: Depressed Assessment and Plan (1) Hyponatremia Status: Acute (2) Pleural effusion Status: Acute (3) Hypertension Status: Chronic - Assessment and Plan (Free Text) Plan: continue low volume iv saline follow chems closely continue supportive care
[2018-04-19 08:53] LABS: BANDS 2 % (0-2); LYMPHOCYTE 5 % (20-40); MONOCYTE 3 % (0-10); NEUTROPHIL 90 % (50-75); PLATELET ESTIMATE NORMAL (NORMAL); TOTAL CELLS COUNTED 100
[2018-04-19 08:54] LABS: ANISOCYTOSIS MODERATE; HYPOCHROMIC SLIGHT; OVALOCYTES SLIGHT; POIKILOCYTOSIS SLIGHT; POLYCHROMIC SLIGHT; SCHISTOCYTES SLIGHT; TOXIC GRANULATION PRESENT
[2018-04-19 08:55] LABS: MICROCYTOSIS SLIGHT
[2018-04-19] MEDS: Sodium Chloride 0.9% 1,000 ML IV SCH ×2 (09:16→13:00)
[2018-04-19] MEDS: Pantoprazole 40 mg EC Tab PO SCH (11:59)
--- NOTE | 2018-04-19 12:27 | RAD ---
Date of service: 04/19/2018 HISTORY: Monitoring CT placement etc COMPARISON: 04/18/2018. FINDINGS: LUNGS: There is diffuse haziness in both lungs. Again seen is moderate pulmonary venous congestion. There is worsening right lower lobe consolidation. PLEURA: Stable position of right-sided chest tubes. No significant pleural effusion identified. Tiny right apical pneumothorax. CARDIOVASCULAR: Persistent moderate cardiomegaly. OSSEOUS STRUCTURES: No significant abnormalities. VISUALIZED UPPER ABDOMEN: Normal. OTHER FINDINGS: None. IMPRESSION: Stable position of right-sided chest tubes. Tiny right apical pneumothorax. Interval development of presumable bilateral pulmonary edema/layering effusions. Worsening right lower lobe consolidation may represent atelectasis or superimposed pneumonia.
--- NOTE | 2018-04-19 14:16 | CP.PCM.PN ---
Subjective - Date & Time of Evaluation Date of Evaluation: 04/19/18 Time of Evaluation: 14:13 - Subjective Subjective: Patient awake, alert sitting up, afebrile, with chest tube in place Objective - Vital Signs/Intake and Output Vital Signs (last 24 hours): Temp Pulse Resp BP Pulse Ox 97 F L 114 H 21 125/37 L 100 04/19/18 08:00 04/19/18 13:00 04/19/18 13:00 04/19/18 13:00 04/19/18 13:00 Intake and Output: 04/19/18 04/19/18 06:59 18:59 Intake Total 870 630 Output Total 540 351 Balance 330 279 - Medications Medications: Current Medications Acetaminophen (Tylenol 325mg Tab) 650 mg PO Q4 PRN PRN Reason: Pain, Mild (1-3) Last Admin: 04/18/18 21:40 Dose: 650 mg Acetylcysteine (Acetylcysteine 20%) 4 ml INH RQ6 [facility] Last Admin: 04/19/18 13:47 Dose: 4 ml Albuterol/Ipratropium (Duoneb 3 Mg/0.5 Mg (3 Ml) Ud) 3 ml INH RQ4 [facility] Last Admin: 04/19/18 13:47 Dose: 3 ml Benzocaine/Menthol (Cepacol Sore Throat) 1 [place] MT Q2 PRN PRN Reason: Sore Throat Heparin Sodium (Porcine) (Heparin) 5,000 units SC Q8 [facility] Last Admin: 04/19/18 13:27 Dose: 5,000 units Hydromorphone HCl (Dilaudid) 0.5 mg IVP Q4H PRN PRN Reason: Pain, severe (8-10) Last Admin: 04/18/18 13:03 Dose: 0.5 mg Talc 2.5 gm/ Sodium Chloride 50 mls @ 0 mls/hr PL ONCE [facility] PRN Reason: UD Stop: 04/20/18 12:01 Piperacillin Sod/Tazobactam Sod (Zosyn 3.375 Gm Iv Premix) 3.375 gm in 50 mls @ 100 mls/hr IVPB Q6H [facility] PRN Reason: Protocol Last Admin: 04/19/18 13:27 Dose: 100 mls/hr Sodium Chloride (Sodium Chloride 0.9%) 1,000 mls @ 50 mls/hr IV .Q20H [facility] Last Admin: 04/19/18 13:00 Dose: 50 mls/hr Midodrine (Proamatine) 2.5 mg PO Q8 [facility] Last Admin: 04/19/18 05:45 Dose: 2.5 mg Pantoprazole Sodium (Protonix Ec Tab) 40 mg PO DAILY [facility] Last Admin: 04/19/18 11:59 Dose: 40 mg Tamsulosin HCl (Flomax) 0.4 mg PO DAILY [facility] Last Admin: 04/19/18 09:19 Dose: 0.4 mg - Labs Labs: 04/19/18 06:26 04/19/18 06:26 PT 12.2 SECONDS (9.7-12.2) 04/17/18 07:07 INR 1.1 04/17/18 07:07 APTT 29 SECONDS (21-34) 04/17/18 07:07 - Head Exam Head Exam: ATRAUMATIC, NORMAL INSPECTION - Eye Exam Eye Exam: Normal appearance - ENT Exam ENT Exam: Mucous Membranes Moist - Respiratory Exam Respiratory Exam: NORMAL BREATHING PATTERN - Cardiovascular Exam Cardiovascular Exam: REGULAR RHYTHM, +S1, +S2 - Extremities Exam Extremities Exam: Normal Capillary Refill, Normal Inspection - Neurological Exam Neurological Exam: Alert, Awake, Oriented x3 Assessment and Plan - Assessment and Plan (Free Text) Assessment: 67 yo M with PMH of 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 s/p b/l thoracentesis. Repeat CT scan showed re-accumulated bilateral pleural effusions - S/p bilateral pigtail chest tubes. The patient again had recurrent pleural effusions and had a Right chest thoracostomy insertion x 2 w/ pleurodesis performed. -Hemodynamically stable -Pneumothorax improved -Dr. Alarcon input apprecaited -Dr. Michel input appreciated -stop IVF as patient is congested -chest tube management as per surgery team -Patient remains hemodynamically stable.
--- NOTE | 2018-04-19 18:31 | CP.PCM.PN ---
Subjective - Date & Time of Evaluation Date of Evaluation: 04/19/18 Time of Evaluation: 16:30 - Subjective Subjective: patient seen and examined On Ventimask, saturation in the upper 90s [address] draining fluid total off 190 cc in 24 hours Chest x-ray consistent with right lower lung infiltrate/atelectasis Patient is awake and responsive weak cough reflux Objective - Vital Signs/Intake and Output Vital Signs (last 24 hours): Temp Pulse Resp BP Pulse Ox 98.3 F 106 H 19 97/27 L 100 04/19/18 16:00 04/19/18 17:00 04/19/18 17:00 04/19/18 17:00 04/19/18 17:00 Intake and Output: 04/19/18 04/19/18 06:59 18:59 Intake Total 870 680 Output Total 540 351 Balance 330 329 - Medications Medications: Current Medications Acetaminophen (Tylenol 325mg Tab) 650 mg PO Q4 PRN PRN Reason: Pain, Mild (1-3) Last Admin: 04/18/18 21:40 Dose: 650 mg Acetylcysteine (Acetylcysteine 20%) 4 ml INH RQ6 [facility] Last Admin: 04/19/18 13:47 Dose: 4 ml Albuterol/Ipratropium (Duoneb 3 Mg/0.5 Mg (3 Ml) Ud) 3 ml INH RQ4 [facility] Last Admin: 04/19/18 16:36 Dose: 3 ml Benzocaine/Menthol (Cepacol Sore Throat) [address] MT Q2 PRN PRN Reason: Sore Throat Heparin Sodium (Porcine) (Heparin) 5,000 units SC Q8 [facility] Last Admin: 04/19/18 13:27 Dose: 5,000 units Hydromorphone HCl (Dilaudid) 0.5 mg IVP Q4H PRN PRN Reason: Pain, severe (8-10) Last Admin: 04/18/18 13:03 Dose: 0.5 mg Talc 2.5 gm/ Sodium Chloride 50 mls @ 0 mls/hr PL ONCE [facility] PRN Reason: UD Stop: 04/20/18 12:01 Piperacillin Sod/Tazobactam Sod (Zosyn 3.375 Gm Iv Premix) 3.375 gm in 50 mls @ 100 mls/hr IVPB Q6H [facility] PRN Reason: Protocol Last Admin: 04/19/18 13:27 Dose: 100 mls/hr Midodrine (Proamatine) 2.5 mg PO Q8 [facility] Last Admin: 04/19/18 15:45 Dose: 2.5 mg Pantoprazole Sodium (Protonix Ec Tab) 40 mg PO DAILY [facility] Last Admin: 04/19/18 11:59 Dose: 40 mg Tamsulosin HCl (Flomax) 0.4 mg PO DAILY [facility] Last Admin: 04/19/18 09:19 Dose: 0.4 mg - Labs Labs: 04/19/18 06:26 04/19/18 06:26 PT 12.2 SECONDS (9.7-12.2) 04/17/18 07:07 INR 1.1 04/17/18 07:07 APTT 29 SECONDS (21-34) 04/17/18 07:07 - Head Exam Head Exam: ATRAUMATIC, NORMOCEPHALIC - ENT Exam ENT Exam: Mucous Membranes Moist - Respiratory Exam Respiratory Exam: Decreased Breath Sounds - Cardiovascular Exam Cardiovascular Exam: REGULAR RHYTHM - GI/Abdominal Exam GI & Abdominal Exam: Soft, Normal Bowel Sounds Assessment and Plan (1) Bilateral pleural effusion Assessment & Plan: status post pleurodesis on right side with 2 chest tubes Positive pneumothorax and right lower lobe atelectasis/ infiltrate Case discussed with family and possibility off bronchoscopy. Family reluctant for another procedure at this point and would like to try other noninvasive options first Continue Mucomyst and nebulizer treatment Continue antibiotics Status: Acute (2) Lung nodule < 6cm on CT Status: Acute
[2018-04-20] MEDS: Piperacill/Tazo 3.375gm in Dex 3.375 GM/50 ML BAG IVPB SCH ×4 (02:31→20:35)
[2018-04-20] MEDS: Albuterol-Ipratrop 3 mg / 0.5 (3 ml) UD INH SCH ×5 (03:10→19:47)
[2018-04-20] MEDS: Acetylcysteine 20% Inhal Soln (4ml) INH SCH ×4 (03:10→19:47)
[2018-04-20 06:31] LABS: BASO % 0.1 % (0.0-2.0); EOS % 0.2 % (0.0-4.0); HEMOGLOBIN 7.5 g/dL (12.0-18.0); LYMPH # 0.4 K/uL (1.0-4.3); LYMPH % 7.3 % (20.0-40.0); MEAN CELL VOLUME 89.6 fL (80.0-94.0); MEAN CORPUSCULAR HEMOGLOBIN 29.8 pg (27.0-31.0); MEAN CORPUSCULAR HGB CONC 33.3 g/dL (33.0-37.0); MONO # 0.2 K/uL (0.0-0.8); MONO % 3.6 % (0.0-10.0); NEUT # 5.2 K/uL (1.8-7.0); NEUT % 88.8 % (50.0-75.0); PLATELET COUNT 141 K/uL (130-400); RBC 2.52 Mil/uL (4.40-5.90); RED CELL DISTRIBUTION WIDTH 21.2 % (11.5-14.5); WHITE BLOOD COUNT 5.9 K/uL (4.8-10.8)
[2018-04-20 06:43] LABS: ALB/GLOB RATIO 0.9 (1.0-2.1); ALBUMIN 2.4 g/dL (3.5-5.0); ALT/SGPT 28 U/L (21-72); AST/SGOT 15 U/L (17-59); BLOOD UREA NITROGEN 38 mg/dL (9-20); CALCIUM 8.1 mg/dl (8.6-10.4); GFR NON-AFRICAN AMERICAN > 60
--- NOTE | 2018-04-20 08:35 | RAD ---
Date of service: 04/20/2018 HISTORY: Monitoring CT placement etc COMPARISON: No prior. FINDINGS: LUNGS: There is interval improved aeration in both lungs with persistent multifocal residual airspace disease. PLEURA: Stable position of 2 right-sided chest tubes. Suspect small effusions. Residual tiny right apical pneumothorax. CARDIOVASCULAR: Normal. OSSEOUS STRUCTURES: No significant abnormalities. VISUALIZED UPPER ABDOMEN: Normal. OTHER FINDINGS: None. IMPRESSION: Stable position of 2 right-sided chest tube with interval improvement in pleural effusions and pulmonary edema. Residual tiny right apical pneumothorax.
[2018-04-20 08:43] LABS: BANDS 1 % (0-2); LYMPHOCYTE 12 % (20-40); MONOCYTE 3 % (0-10); NEUTROPHIL 84 % (50-75); PLATELET ESTIMATE NORMAL (NORMAL); TOTAL CELLS COUNTED 100
[2018-04-20 08:44] LABS: BURR CELLS SLIGHT; HYPOCHROMIC SLIGHT; OVALOCYTES SLIGHT; POIKILOCYTOSIS SLIGHT; POLYCHROMIC SLIGHT
[2018-04-20 08:45] LABS: LARGE PLATELETS PRESENT; TOXIC GRANULATION PRESENT
[2018-04-20 08:47] LABS: ANISOCYTOSIS MARKED
--- NOTE | 2018-04-20 09:45 | CP.PCM.PN ---
Subjective - Date & Time of Evaluation Date of Evaluation: 04/20/18 Time of Evaluation: 09:42 - Subjective Subjective: Surgery Pt seen and examined. No acute events. denies SOB. Pain controlled. PT is OOB. using IS. ant CT air leak 50cc ss /24hrs. post CT no leak. 300cc/ 24hrs. SS. saturating at 100%. Objective - Vital Signs/Intake and Output Vital Signs (last 24 hours): Temp Pulse Resp BP Pulse Ox 97.7 F 98 H 12 97/35 L 100 04/20/18 04:00 04/20/18 07:00 04/20/18 07:00 04/20/18 07:00 04/20/18 07:00 Intake and Output: 04/20/18 04/20/18 06:59 18:59 Intake Total 220 Output Total 520 110 Balance -300 -110 - Medications Medications: Current Medications Acetaminophen (Tylenol 325mg Tab) 650 mg PO Q4 PRN PRN Reason: Pain, Mild (1-3) Last Admin: 04/20/18 00:31 Dose: 650 mg Acetylcysteine (Acetylcysteine 20%) 4 ml INH RQ6 [facility] Last Admin: 04/20/18 07:35 Dose: 4 ml Albuterol/Ipratropium (Duoneb 3 Mg/0.5 Mg (3 Ml) Ud) 3 ml INH RQ4 [facility] Last Admin: 04/20/18 07:35 Dose: 3 ml Benzocaine/Menthol (Cepacol Sore Throat) [address] MT Q2 PRN PRN Reason: Sore Throat Heparin Sodium (Porcine) (Heparin) 5,000 units SC Q8 [facility] Last Admin: 04/20/18 06:05 Dose: 5,000 units Hydromorphone HCl (Dilaudid) 0.5 mg IVP Q4H PRN PRN Reason: Pain, severe (8-10) Last Admin: 04/18/18 13:03 Dose: 0.5 mg Talc 2.5 gm/ Sodium Chloride 50 mls @ 0 mls/hr PL ONCE [facility] PRN Reason: UD Stop: 04/20/18 12:01 Piperacillin Sod/Tazobactam Sod (Zosyn 3.375 Gm Iv Premix) 3.375 gm in 50 mls @ 100 mls/hr IVPB Q6H [facility] PRN Reason: Protocol Last Admin: 04/20/18 08:53 Dose: 100 mls/hr Midodrine (Proamatine) 2.5 mg PO Q8 [facility] Last Admin: 04/20/18 06:05 Dose: 2.5 mg Pantoprazole Sodium (Protonix Ec Tab) 40 mg PO DAILY [facility] Last Admin: 04/19/18 11:59 Dose: 40 mg Tamsulosin HCl (Flomax) 0.4 mg PO DAILY [facility] Last Admin: 04/19/18 09:19 Dose: 0.4 mg - Labs Labs: 04/20/18 06:27 04/20/18 06:27 PT 12.2 SECONDS (9.7-12.2) 04/17/18 07:07 INR 1.1 04/17/18 07:07 APTT 29 SECONDS (21-34) 04/17/18 07:07 - Constitutional Appears: No Acute Distress - Head Exam Head Exam: ATRAUMATIC, NORMAL INSPECTION, NORMOCEPHALIC - Eye Exam Eye Exam: EOMI, Normal appearance, PERRL Pupil Exam: NORMAL ACCOMODATION, PERRL - ENT Exam ENT Exam: Mucous Membranes Moist, Normal Exam - Respiratory Exam Respiratory Exam: NORMAL BREATHING PATTERN Additional comments: chest tube x2 ant leak 50cc ss /24hs. post no leak 300cc ss/24hrs. - Cardiovascular Exam Cardiovascular Exam: Tachycardia, +S1, +S2 - GI/Abdominal Exam GI & Abdominal Exam: Soft. absent: Distended, Tenderness - Exam Exam: NORMAL INSPECTION - Extremities Exam Extremities Exam: Full ROM, Normal Capillary Refill, Normal Inspection. absent : Joint Swelling, Pedal Edema - Back Exam Back Exam: NORMAL INSPECTION - Neurological Exam Neurological Exam: Alert, Awake, CN II-XII Intact, Normal Gait, Oriented x3 - Psychiatric Exam Psychiatric exam: Normal Affect, Normal Mood - Skin Skin Exam: Dry, Intact, Normal Color, Warm Assessment and Plan - Assessment and Plan (Free Text) Assessment: 67M POD#3 Right thoracostomy tube insertion x 2 with pleurodesis now with hypotension in ICU CT Chest with small anterior and posterior pneumothorax , RLL atelectasis CXR no pneumothorax noted. CT in good place. Plan: CT chest on Mon Monitor CT output Daily CXR Monitor VS Further mgmt as per primary & ICU teams GUSTAVO Michel
[2018-04-20] MEDS: Pantoprazole 40 mg EC Tab PO SCH (10:30)
--- NOTE | 2018-04-20 10:39 | CP.PCM.PN ---
Subjective - Date & Time of Evaluation Date of Evaluation: 04/20/18 Time of Evaluation: 07:00 - Subjective Subjective: patient seen and examined Denies shortness of breath Saturation 100% Out of bed to chair Both chest tubes draining fluid afebrile No active bleeding noted Objective - Vital Signs/Intake and Output Vital Signs (last 24 hours): Temp Pulse Resp BP Pulse Ox 97.7 F 98 H 12 97/35 L 100 04/20/18 04:00 04/20/18 07:00 04/20/18 07:00 04/20/18 07:00 04/20/18 07:00 Intake and Output: 04/20/18 04/20/18 06:59 18:59 Intake Total 220 Output Total 520 110 Balance -300 -110 - Medications Medications: Current Medications Acetaminophen (Tylenol 325mg Tab) 650 mg PO Q4 PRN PRN Reason: Pain, Mild (1-3) Last Admin: 04/20/18 00:31 Dose: 650 mg Acetylcysteine (Acetylcysteine 20%) 4 ml INH RQ6 [facility] Last Admin: 04/20/18 07:35 Dose: 4 ml Albuterol/Ipratropium (Duoneb 3 Mg/0.5 Mg (3 Ml) Ud) 3 ml INH RQ4 [facility] Last Admin: 04/20/18 07:35 Dose: 3 ml Benzocaine/Menthol (Cepacol Sore Throat) 1 ke[address] MT Q2 PRN PRN Reason: Sore Throat Heparin Sodium (Porcine) (Heparin) 5,000 units SC Q8 [facility] Last Admin: 04/20/18 06:05 Dose: 5,000 units Hydromorphone HCl (Dilaudid) 0.5 mg IVP Q4H PRN PRN Reason: Pain, severe (8-10) Last Admin: 04/18/18 13:03 Dose: 0.5 mg Talc 2.5 gm/ Sodium Chloride 50 mls @ 0 mls/hr PL ONCE [facility] PRN Reason: UD Stop: 04/20/18 12:01 Piperacillin Sod/Tazobactam Sod (Zosyn 3.375 Gm Iv Premix) 3.375 gm in 50 mls @ 100 mls/hr IVPB Q6H [facility] PRN Reason: Protocol Last Admin: 04/20/18 08:53 Dose: 100 mls/hr Midodrine (Proamatine) 2.5 mg PO Q8 [facility] Last Admin: 04/20/18 06:05 Dose: 2.5 mg Pantoprazole Sodium (Protonix Ec Tab) 40 mg PO DAILY [facility] Last Admin: 04/19/18 11:59 Dose: 40 mg Tamsulosin HCl (Flomax) 0.4 mg PO DAILY [facility] Last Admin: 04/19/18 09:19 Dose: 0.4 mg - Labs Labs: 04/20/18 06:27 04/20/18 06:27 PT 12.2 SECONDS (9.7-12.2) 04/17/18 07:07 INR 1.1 04/17/18 07:07 APTT 29 SECONDS (21-34) 04/17/18 07:07 - Head Exam Head Exam: ATRAUMATIC, NORMOCEPHALIC - ENT Exam ENT Exam: Mucous Membranes Moist - Neck Exam Neck Exam: Normal Inspection - Respiratory Exam Respiratory Exam: Decreased Breath Sounds - Cardiovascular Exam Cardiovascular Exam: REGULAR RHYTHM - GI/Abdominal Exam GI & Abdominal Exam: Soft Assessment and Plan (1) Bilateral pleural effusion Assessment & Plan: status post pleurodesis and chest tube insertion Atelectasis right lower lobe Family refusing bronchoscopy at this point Continue Mucomyst and nebulizer treatment Continue antibiotics Transfuse packed RBCs Status: Acute (2) Lung nodule < 6cm on CT Status: Acute
--- NOTE | 2018-04-20 11:52 | CP.PCM.PN ---
Subjective - Date & Time of Evaluation Date of Evaluation: 04/20/18 Time of Evaluation: 11:49 - Subjective Subjective: Patent has no complaint of SOB, Chest tubes still draining jeffrey-colored fluid. Afebrile. CXR: Tiny right apical pneumothorax. Hgb: 7.4. Needs PRC transfusions. Objective - Vital Signs/Intake and Output Vital Signs (last 24 hours): Temp Pulse Resp BP Pulse Ox 97.7 F 98 H 12 97/35 L 100 04/20/18 04:00 04/20/18 07:00 04/20/18 07:00 04/20/18 07:00 04/20/18 07:00 Intake and Output: 04/20/18 04/20/18 06:59 18:59 Intake Total 220 Output Total 520 110 Balance -300 -110 - Medications Medications: Current Medications Acetaminophen (Tylenol 325mg Tab) 650 mg PO Q4 PRN PRN Reason: Pain, Mild (1-3) Last Admin: 04/20/18 00:31 Dose: 650 mg Acetylcysteine (Acetylcysteine 20%) 4 ml INH RQ6 [facility] Last Admin: 04/20/18 07:35 Dose: 4 ml Albuterol/Ipratropium (Duoneb 3 Mg/0.5 Mg (3 Ml) Ud) 3 ml INH RQ4 [facility] Last Admin: 04/20/18 07:35 Dose: 3 ml Benzocaine/Menthol (Cepacol Sore Throat) [address] MT Q2 PRN PRN Reason: Sore Throat Heparin Sodium (Porcine) (Heparin) 5,000 units SC Q12 [facility] Hydromorphone HCl (Dilaudid) 0.5 mg IVP Q4H PRN PRN Reason: Pain, severe (8-10) Last Admin: 04/18/18 13:03 Dose: 0.5 mg Talc 2.5 gm/ Sodium Chloride 50 mls @ 0 mls/hr PL ONCE [facility] PRN Reason: UD Stop: 04/20/18 12:01 Piperacillin Sod/Tazobactam Sod (Zosyn 3.375 Gm Iv Premix) 3.375 gm in 50 mls @ 100 mls/hr IVPB Q6H [facility] PRN Reason: Protocol Last Admin: 04/20/18 08:53 Dose: 100 mls/hr Midodrine (Proamatine) 2.5 mg PO Q8 [facility] Last Admin: 04/20/18 06:05 Dose: 2.5 mg Pantoprazole Sodium (Protonix Ec Tab) 40 mg PO DAILY [facility] Last Admin: 04/20/18 10:30 Dose: 40 mg Tamsulosin HCl (Flomax) 0.4 mg PO DAILY [facility] Last Admin: 04/20/18 10:29 Dose: 0.4 mg - Labs Labs: 04/20/18 06:27 04/20/18 06:27 PT 12.2 SECONDS (9.7-12.2) 04/17/18 07:07 INR 1.1 04/17/18 07:07 APTT 29 SECONDS (21-34) 04/17/18 07:07 - Constitutional Appears: Cachectic, Chronically Ill - Head Exam Head Exam: NORMAL INSPECTION - Eye Exam Eye Exam: Normal appearance Pupil Exam: NORMAL ACCOMODATION 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 - ENT Exam ENT Exam: Normal Exam - Neck Exam Neck Exam: Normal Inspection - Respiratory Exam Respiratory Exam: Rhonchi - Cardiovascular Exam Cardiovascular Exam: REGULAR RHYTHM, Murmur - GI/Abdominal Exam GI & Abdominal Exam: Soft, Normal Bowel Sounds - Extremities Exam Extremities Exam: Normal Inspection - Back Exam Back Exam: NORMAL INSPECTION - Neurological Exam Neurological Exam: Alert, Awake, Oriented x3 - Psychiatric Exam Psychiatric exam: Anxious - Skin Skin Exam: Dry, Normal Color, Warm Assessment and Plan (1) Lower GI bleeding Status: Resolved (2) Anemia Assessment & Plan: Hgb: 7.3. Needs PRC transfusions. Status: Acute (3) Pneumonia Status: Resolved (4) Hyperkalemia Status: Resolved (5) Hyponatremia Status: Acute (6) Acute diastolic (congestive) heart failure Status: Resolved (7) Acute bacterial endocarditis Assessment & Plan: On Rocephin. Status: Acute (8) Acute non-ST elevation myocardial infarction (NSTEMI) Assessment & Plan: Stable. Status: Acute (9) Bilateral pleural effusion Assessment & Plan: S/p right pleurodesis. Status: Acute
--- NOTE | 2018-04-20 17:15 | CP.PCM.PN ---
Subjective - Date & Time of Evaluation Date of Evaluation: 04/20/18 Time of Evaluation: 09:00 - Subjective Subjective: events noted right ct in place denies fever Objective - Vital Signs/Intake and Output Vital Signs (last 24 hours): Temp Pulse Resp BP Pulse Ox 97.4 F L 109 H 24 108/34 L 100 04/20/18 16:00 04/20/18 16:00 04/20/18 16:00 04/20/18 16:00 04/20/18 16:00 Intake and Output: 04/20/18 04/20/18 06:59 18:59 Intake Total 220 760 Output Total 520 471 Balance -300 289 - Medications Medications: Current Medications Acetaminophen (Tylenol 325mg Tab) 650 mg PO Q4 PRN PRN Reason: Pain, Mild (1-3) Last Admin: 04/20/18 00:31 Dose: 650 mg Acetylcysteine (Acetylcysteine 20%) 4 ml INH RQ6 [facility] Last Admin: 04/20/18 13:22 Dose: 4 ml Albuterol/Ipratropium (Duoneb 3 Mg/0.5 Mg (3 Ml) Ud) 3 ml INH RQ4 [facility] Last Admin: 04/20/18 16:12 Dose: 3 ml Benzocaine/Menthol (Cepacol Sore Throat) 1 ke[address] MT Q2 PRN PRN Reason: Sore Throat Heparin Sodium (Porcine) (Heparin) 5,000 units SC Q12 [facility] Hydromorphone HCl (Dilaudid) 0.5 mg IVP Q4H PRN PRN Reason: Pain, severe (8-10) Last Admin: 04/18/18 13:03 Dose: 0.5 mg Piperacillin Sod/Tazobactam Sod (Zosyn 3.375 Gm Iv Premix) 3.375 gm in 50 mls @ 100 mls/hr IVPB Q6H [facility] PRN Reason: Protocol Last Admin: 04/20/18 14:07 Dose: 100 mls/hr Midodrine (Proamatine) 2.5 mg PO Q8 [facility] Last Admin: 04/20/18 14:06 Dose: 2.5 mg Pantoprazole Sodium (Protonix Ec Tab) 40 mg PO DAILY [facility] Last Admin: 04/20/18 10:30 Dose: 40 mg Tamsulosin HCl (Flomax) 0.4 mg PO DAILY [facility] Last Admin: 04/20/18 10:29 Dose: 0.4 mg - Labs Labs: 04/20/18 06:27 04/20/18 06:27 PT 12.2 SECONDS (9.7-12.2) 04/17/18 07:07 INR 1.1 04/17/18 07:07 APTT 29 SECONDS (21-34) 04/17/18 07:07 - Constitutional Appears: Non-toxic, Chronically Ill - Head Exam Head Exam: NORMOCEPHALIC - Eye Exam Eye Exam: absent: PERRL, Scleral icterus Pupil Exam: absent: NORMAL ACCOMODATION Additional comments: blind left eye - ENT Exam ENT Exam: Mucous Membranes Dry - Neck Exam Neck Exam: absent: Lymphadenopathy - Respiratory Exam Respiratory Exam: Decreased Breath Sounds - Cardiovascular Exam Cardiovascular Exam: REGULAR RHYTHM - GI/Abdominal Exam GI & Abdominal Exam: Distended, Soft - Rectal Exam Rectal Exam: Deferred - Exam Exam: NORMAL INSPECTION - Extremities Exam Extremities Exam: absent: Pedal Edema - Back Exam Back Exam: absent: CVA tenderness (L), CVA tenderness (R) Assessment and Plan (1) Anemia Status: Acute (2) Pneumonia Status: Resolved (3) Lower GI bleeding Status: Resolved (4) Mass in rectum Status: Acute (5) Rectal adenocarcinoma Status: Acute (6) Endocarditis Status: Acute - Assessment and Plan (Free Text) Assessment: cont iv rx CT surgery follow up
[2018-04-21] MEDS: Piperacill/Tazo 3.375gm in Dex 3.375 GM/50 ML BAG IVPB SCH ×3 (01:30→14:00)
[2018-04-21] MEDS: Acetylcysteine 20% Inhal Soln (4ml) INH SCH ×4 (01:43→19:55)
[2018-04-21] MEDS: Albuterol-Ipratrop 3 mg / 0.5 (3 ml) UD INH SCH ×6 (01:44→19:55)
[2018-04-21] MEDS ORDERED: Iodixanol 320 MG/ML 100 ML BOTTLE IV ONE (09:02)
--- NOTE | 2018-04-21 09:26 | RAD ---
Date of service: 04/21/2018 HISTORY: Monitoring CT placement etc COMPARISON: Multiple serial examinations preceding the most recent study: April 20, 2018. FINDINGS: LUNGS: Stable consolidative changes. PLEURA: Stable position of 2 chest tubes in the right pleural space. Tiny right pneumothorax CARDIOVASCULAR: No significant interval change compared to the prior examination(s). OSSEOUS STRUCTURES: No significant abnormalities. VISUALIZED UPPER ABDOMEN: Normal. OTHER FINDINGS: None. IMPRESSION: Stable in satisfactory position of chest tubes in the right pleural space with tiny barely perceptible pneumothorax. Overall, no interval change.
[2018-04-21] MEDS: Pantoprazole 40 mg EC Tab PO SCH (09:42)
--- NOTE | 2018-04-21 11:22 | CP.PCM.PN ---
Subjective - Date & Time of Evaluation Date of Evaluation: 04/21/18 Time of Evaluation: 10:00 - Subjective Subjective: events notrd iv rx renewed Objective - Vital Signs/Intake and Output Vital Signs (last 24 hours): Temp Pulse Resp BP Pulse Ox 98.5 F 102 H 16 104/33 L 100 04/21/18 04:00 04/21/18 06:58 04/21/18 06:58 04/21/18 06:58 04/21/18 06:58 Intake and Output: 04/21/18 04/21/18 06:59 18:59 Intake Total 575 Output Total 450 215 Balance 125 -215 - Medications Medications: Current Medications Acetaminophen (Tylenol 325mg Tab) 650 mg PO Q4 PRN PRN Reason: Pain, Mild (1-3) Last Admin: 04/21/18 02:03 Dose: 650 mg Acetylcysteine (Acetylcysteine 20%) 4 ml INH RQ6 [facility] Last Admin: 04/21/18 08:04 Dose: 4 ml Albuterol/Ipratropium (Duoneb 3 Mg/0.5 Mg (3 Ml) Ud) 3 ml INH RQ4 [facility] Last Admin: 04/21/18 08:04 Dose: 3 ml Benzocaine/Menthol (Cepacol Sore Throat) 1 ke[address] MT Q2 PRN PRN Reason: Sore Throat Heparin Sodium (Porcine) (Heparin) 5,000 units SC Q12 [facility] Last Admin: 04/21/18 09:41 Dose: 5,000 units Hydromorphone HCl (Dilaudid) 0.5 mg IVP Q4H PRN PRN Reason: Pain, severe (8-10) Last Admin: 04/18/18 13:03 Dose: 0.5 mg Piperacillin Sod/Tazobactam Sod (Zosyn 3.375 Gm Iv Premix) 3.375 gm in 50 mls @ 100 mls/hr IVPB Q6H [facility] PRN Reason: Protocol Last Admin: 04/21/18 08:00 Dose: 100 mls/hr Midodrine (Proamatine) 2.5 mg PO Q8 [facility] Last Admin: 04/21/18 05:29 Dose: 2.5 mg Pantoprazole Sodium (Protonix Ec Tab) 40 mg PO DAILY [facility] Last Admin: 04/21/18 09:42 Dose: 40 mg Tamsulosin HCl (Flomax) 0.4 mg PO DAILY [facility] Last Admin: 04/20/18 10:29 Dose: 0.4 mg - Labs Labs: 04/20/18 06:27 04/20/18 06:27 PT 12.2 SECONDS (9.7-12.2) 04/17/18 07:07 INR 1.1 04/17/18 07:07 APTT 29 SECONDS (21-34) 04/17/18 07:07 - Constitutional Appears: Chronically Ill - Head Exam Head Exam: NORMOCEPHALIC - Eye Exam Eye Exam: absent: Scleral icterus - ENT Exam ENT Exam: Mucous Membranes Dry - Neck Exam Neck Exam: absent: Lymphadenopathy - Respiratory Exam Respiratory Exam: Decreased Breath Sounds - Cardiovascular Exam Cardiovascular Exam: REGULAR RHYTHM - GI/Abdominal Exam GI & Abdominal Exam: Distended Assessment and Plan (1) Anemia Status: Acute (2) Pneumonia Status: Resolved (3) Lower GI bleeding Status: Resolved (4) Mass in rectum Status: Acute (5) Rectal adenocarcinoma Status: Acute (6) Endocarditis Status: Acute
--- NOTE | 2018-04-21 11:25 | CP.PCM.PN ---
Subjective - Date & Time of Evaluation Date of Evaluation: 04/21/18 Time of Evaluation: 11:22 - Subjective Subjective: Still draing right chest tube s/p 1 dose IV lasix- good UO Off IV fluids Na level 134- improved Renal function, lytes stable not dyspneic Objective - Vital Signs/Intake and Output Vital Signs (last 24 hours): Temp Pulse Resp BP Pulse Ox 98.5 F 102 H 16 104/33 L 100 04/21/18 04:00 04/21/18 06:58 04/21/18 06:58 04/21/18 06:58 04/21/18 06:58 Intake and Output: 04/21/18 04/21/18 06:59 18:59 Intake Total 575 Output Total 450 215 Balance 125 -215 - Medications Medications: Current Medications Acetaminophen (Tylenol 325mg Tab) 650 mg PO Q4 PRN PRN Reason: Pain, Mild (1-3) Last Admin: 04/21/18 02:03 Dose: 650 mg Acetylcysteine (Acetylcysteine 20%) 4 ml INH RQ6 [facility] Last Admin: 04/21/18 08:04 Dose: 4 ml Albuterol/Ipratropium (Duoneb 3 Mg/0.5 Mg (3 Ml) Ud) 3 ml INH RQ4 [facility] Last Admin: 04/21/18 08:04 Dose: 3 ml Benzocaine/Menthol (Cepacol Sore Throat) 1 keely MT Q2 PRN PRN Reason: Sore Throat Heparin Sodium (Porcine) (Heparin) 5,000 units SC Q12 [facility] Last Admin: 04/21/18 09:41 Dose: 5,000 units Hydromorphone HCl (Dilaudid) 0.5 mg IVP Q4H PRN PRN Reason: Pain, severe (8-10) Last Admin: 04/18/18 13:03 Dose: 0.5 mg Piperacillin Sod/Tazobactam Sod (Zosyn 3.375 Gm Iv Premix) 3.375 gm in 50 mls @ 100 mls/hr IVPB Q6H [facility] PRN Reason: Protocol Last Admin: 04/21/18 08:00 Dose: 100 mls/hr Midodrine (Proamatine) 2.5 mg PO Q8 [facility] Last Admin: 04/21/18 05:29 Dose: 2.5 mg Pantoprazole Sodium (Protonix Ec Tab) 40 mg PO DAILY [facility] Last Admin: 04/21/18 09:42 Dose: 40 mg Tamsulosin HCl (Flomax) 0.4 mg PO DAILY [facility] Last Admin: 04/20/18 10:29 Dose: 0.4 mg - Labs Labs: 04/20/18 06:27 04/20/18 06:27 PT 12.2 SECONDS (9.7-12.2) 04/17/18 07:07 INR 1.1 04/17/18 07:07 APTT 29 SECONDS (21-34) 04/17/18 07:07 - Constitutional Appears: No Acute Distress, Confused, Cachectic - Head Exam Head Exam: ATRAUMATIC, NORMAL INSPECTION - Eye Exam Eye Exam: EOMI, Periorbital swelling - Neck Exam Neck Exam: Normal Inspection. absent: Tenderness - Respiratory Exam Respiratory Exam: Decreased Breath Sounds, Rhonchi - Cardiovascular Exam Cardiovascular Exam: REGULAR RHYTHM, +S1 - Extremities Exam Extremities Exam: Normal Inspection. absent: Tenderness - Neurological Exam Neurological Exam: Altered - Skin Skin Exam: Dry, Warm Assessment and Plan (1) Rectal cancer Status: Acute (2) Pleural effusion Status: Acute (3) Hyponatremia Status: Acute (4) Acute non-ST elevation myocardial infarction (NSTEMI) Status: Acute (5) Rectal adenocarcinoma Status: Acute - Assessment and Plan (Free Text) Plan: Monitor lytes, renal function Monotor output- UO, chest tubes
--- NOTE | 2018-04-21 11:50 | CP.PCM.PN ---
Subjective - Date & Time of Evaluation Date of Evaluation: 04/21/18 Time of Evaluation: 11:45 - Subjective Subjective: Pt s/e. vss. [id number] chest tubes:40/290/last [address] chest this am: Improved RLL atelectasis. Anterior pneumo-Diminished. Since the pt returned from x-ray suite, air leak resolved. a/p: 1. Chest tube to suction at 10cm H2O. 2. Continue supportive care. 3. cxr in am. Objective - Vital Signs/Intake and Output Vital Signs (last 24 hours): Temp Pulse Resp BP Pulse Ox 98.5 F 102 H 16 104/33 L 100 04/21/18 04:00 04/21/18 06:58 04/21/18 06:58 04/21/18 06:58 04/21/18 06:58 Intake and Output: 04/21/18 04/21/18 06:59 18:59 Intake Total 575 Output Total 450 215 Balance 125 -215 - Medications Medications: Current Medications Acetaminophen (Tylenol 325mg Tab) 650 mg PO Q4 PRN PRN Reason: Pain, Mild (1-3) Last Admin: 04/21/18 02:03 Dose: 650 mg Acetylcysteine (Acetylcysteine 20%) 4 ml INH RQ6 [facility] Last Admin: 04/21/18 08:04 Dose: 4 ml Albuterol/Ipratropium (Duoneb 3 Mg/0.5 Mg (3 Ml) Ud) 3 ml INH RQ4 [facility] Last Admin: 04/21/18 11:38 Dose: 3 ml Benzocaine/Menthol (Cepacol Sore Throat) 1 keely MT Q2 PRN PRN Reason: Sore Throat Heparin Sodium (Porcine) (Heparin) 5,000 units SC Q12 [facility] Last Admin: 04/21/18 09:41 Dose: 5,000 units Hydromorphone HCl (Dilaudid) 0.5 mg IVP Q4H PRN PRN Reason: Pain, severe (8-10) Last Admin: 04/18/18 13:03 Dose: 0.5 mg Piperacillin Sod/Tazobactam Sod (Zosyn 3.375 Gm Iv Premix) 3.375 gm in 50 mls @ 100 mls/hr IVPB Q6H [facility] PRN Reason: Protocol Last Admin: 04/21/18 08:00 Dose: 100 mls/hr Midodrine (Proamatine) 2.5 mg PO Q8 [facility] Last Admin: 04/21/18 05:29 Dose: 2.5 mg Pantoprazole Sodium (Protonix Ec Tab) 40 mg PO DAILY [facility] Last Admin: 04/21/18 09:42 Dose: 40 mg Tamsulosin HCl (Flomax) 0.4 mg PO DAILY [facility] Last Admin: 04/20/18 10:29 Dose: 0.4 mg - Labs Labs: 04/20/18 06:27 04/20/18 06:27 PT 12.2 SECONDS (9.7-12.2) 04/17/18 07:07 INR 1.1 04/17/18 07:07 APTT 29 SECONDS (21-34) 04/17/18 07:07
--- NOTE | 2018-04-21 14:50 | CP.PCM.PN ---
Subjective - Date & Time of Evaluation Date of Evaluation: 04/21/18 Time of Evaluation: 10:45 - Subjective Subjective: patient seen and examined On 3 L nasal cannula the saturation in the upper 90s Sitting on chair with less shortness of breath Chest tube is in place CAT scan of the chest reviewed afebrile Objective - Vital Signs/Intake and Output Vital Signs (last 24 hours): Temp Pulse Resp BP Pulse Ox 98.0 F 112 H 21 101/32 L 100 04/21/18 12:00 04/21/18 13:00 04/21/18 13:00 04/21/18 08:58 04/21/18 12:00 Intake and Output: 04/21/18 04/21/18 06:59 18:59 Intake Total 575 Output Total 450 215 Balance 125 -215 - Medications Medications: Current Medications Acetaminophen (Tylenol 325mg Tab) 650 mg PO Q4 PRN PRN Reason: Pain, Mild (1-3) Last Admin: 04/21/18 02:03 Dose: 650 mg Acetylcysteine (Acetylcysteine 20%) 4 ml INH RQ6 [facility] Last Admin: 04/21/18 14:12 Dose: Not Given Albuterol/Ipratropium (Duoneb 3 Mg/0.5 Mg (3 Ml) Ud) 3 ml INH RQ4 [facility] Last Admin: 04/21/18 11:38 Dose: 3 ml Benzocaine/Menthol (Cepacol Sore Throat) 1 keely MT Q2 PRN PRN Reason: Sore Throat Heparin Sodium (Porcine) (Heparin) 5,000 units SC Q12 [facility] Last Admin: 04/21/18 09:41 Dose: 5,000 units Hydromorphone HCl (Dilaudid) 0.5 mg IVP Q4H PRN PRN Reason: Pain, severe (8-10) Last Admin: 04/18/18 13:03 Dose: 0.5 mg Midodrine (Proamatine) 2.5 mg PO Q8 [facility] Last Admin: 04/21/18 05:29 Dose: 2.5 mg Pantoprazole Sodium (Protonix Ec Tab) 40 mg PO DAILY [facility] Last Admin: 04/21/18 09:42 Dose: 40 mg Tamsulosin HCl (Flomax) 0.4 mg PO DAILY [facility] Last Admin: 04/20/18 10:29 Dose: 0.4 mg - Labs Labs: 04/20/18 06:27 04/20/18 06:27 PT 12.2 SECONDS (9.7-12.2) 04/17/18 07:07 INR 1.1 04/17/18 07:07 APTT 29 SECONDS (21-34) 04/17/18 07:07 - Head Exam Head Exam: ATRAUMATIC, NORMOCEPHALIC - Neck Exam Neck Exam: Normal Inspection - Respiratory Exam Respiratory Exam: Decreased Breath Sounds - Cardiovascular Exam Cardiovascular Exam: REGULAR RHYTHM - GI/Abdominal Exam GI & Abdominal Exam: Soft, Normal Bowel Sounds - Extremities Exam Extremities Exam: Normal Inspection Assessment and Plan (1) Bilateral pleural effusion Assessment & Plan: CAT scan of the chest reviewed Chest tube in place with pneumothorax Continue present treatment Status: Acute (2) Lung nodule < 6cm on CT Status: Acute
--- NOTE | 2018-04-21 15:23 | CT ---
Date of service: 04/21/2018 PROCEDURE: CT Chest with contrast HISTORY: Chest Tube Air Leak/Pneumothorax COMPARISON: Plain radiographs from 04/21/2018 TECHNIQUE: Contiguous axial images were obtained through the chest with intravenous contrast enhancement. Sagittal and coronal reconstructions were performed. IV contrast: 100 mL Visipaque 320 Radiation dose (DLP): 382.67 mGy-cm. This CT exam was performed using one or more of the following dose reduction techniques: Automated exposure control, adjustment of the mA and/or kV according to patient size, and/or use of iterative reconstruction technique. FINDINGS: LUNGS: There are tree in bud opacities in the right upper lobe, right middle lobe and lingula. There is dense consolidation in the posterior segment of the right upper lobe and right lower lobe. There also airspace disease in the lateral segment of the right middle lobe and in the left lower lobe. MEDIASTINUM: Normal thoracic aorta. No aneurysm or dissection. Normal sized heart. Main pulmonary artery unremarkable. No vascular congestion. No lymphadenopathy. PLEURA: Moderate left pleural effusion. Worsening small right pneumothorax. Stable position of 2 right-sided chest tubes with BONES: No fracture. No destructive lesion. UPPER ABDOMEN: There are well shaped hypodense area is in the upper pole and interpolar region of the visualized spleen. The gallbladder is distended no calcified gallstones. OTHER FINDINGS: None. IMPRESSION: 1. Interval increase in size of small right pneumothorax. Stable position of right-sided chest tubes. 2. Airspace disease in the right lower lobe likely represents pneumonia. Also noted are tree-in-bud opacities in the right upper lobe, right middle lobe and lingula concerning for infectious bronchiolitis. 3. Moderate left pleural effusion. Airspace disease in the left lower lobe may represent compressive atelectasis however superimposed pneumonia cannot be excluded. 3. Wedge-shaped avascular areas in the visualized spleen concerning for splenic infarctions.
--- NOTE | 2018-04-21 22:33 | CP.PCM.PN ---
Subjective - Date & Time of Evaluation Date of Evaluation: 04/21/18 Time of Evaluation: 20:00 - Subjective Subjective: Patient has no complaint of chest pain or SOB. Right chest tube still draining a fair amount of fluid. CT scan of the chest reveals a moderate left pleural effusion and a RLL consolidation. Patient is afebrile and in no respiratory distress. Objective - Vital Signs/Intake and Output Vital Signs (last 24 hours): Temp Pulse Resp BP Pulse Ox 98.0 F 106 H 18 107/37 L 100 04/21/18 16:00 04/21/18 22:00 04/21/18 22:00 04/21/18 20:58 04/21/18 22:00 Intake and Output: 04/21/18 04/22/18 18:59 06:59 Output Total 400 Balance -400 - Medications Medications: Current Medications Acetaminophen (Tylenol 325mg Tab) 650 mg PO Q4 PRN PRN Reason: Pain, Mild (1-3) Last Admin: 04/21/18 02:03 Dose: 650 mg Acetylcysteine (Acetylcysteine 20%) 4 ml INH RQ6 [facility] Last Admin: 04/21/18 19:55 Dose: 4 ml Albuterol/Ipratropium (Duoneb 3 Mg/0.5 Mg (3 Ml) Ud) 3 ml INH RQ4 [facility] Last Admin: 04/21/18 19:55 Dose: 3 ml Benzocaine/Menthol (Cepacol Sore Throat) 1 keely MT Q2 PRN PRN Reason: Sore Throat Heparin Sodium (Porcine) (Heparin) 5,000 units SC Q12 [facility] Last Admin: 04/21/18 21:02 Dose: 5,000 units Midodrine (Proamatine) 2.5 mg PO Q8 [facility] Last Admin: 04/21/18 21:01 Dose: 2.5 mg Pantoprazole Sodium (Protonix Ec Tab) 40 mg PO DAILY [facility] Last Admin: 04/21/18 09:42 Dose: 40 mg Tamsulosin HCl (Flomax) 0.4 mg PO DAILY [facility] Last Admin: 04/21/18 10:00 Dose: 0.4 mg - Labs Labs: 04/20/18 06:27 04/20/18 06:27 PT 12.2 SECONDS (9.7-12.2) 04/17/18 07:07 INR 1.1 04/17/18 07:07 APTT 29 SECONDS (21-34) 04/17/18 07:07 - Constitutional Appears: No Acute Distress, Cachectic, Chronically Ill - Eye Exam Eye Exam: Normal appearance - ENT Exam ENT Exam: Normal Exam - Neck Exam Neck Exam: Normal Inspection - Respiratory Exam Respiratory Exam: Rhonchi - Cardiovascular Exam Cardiovascular Exam: REGULAR RHYTHM, Murmur - GI/Abdominal Exam GI & Abdominal Exam: Soft, Normal Bowel Sounds - Extremities Exam Extremities Exam: Normal Inspection - Back Exam Back Exam: NORMAL INSPECTION - Neurological Exam Neurological Exam: Alert, Awake, Oriented x3 - Psychiatric Exam Psychiatric exam: Anxious - Skin Skin Exam: Dry, Intact, Normal Color, Warm Assessment and Plan (1) Lower GI bleeding Status: Resolved (2) Anemia Assessment & Plan: To follow up with with CBC. Status: Acute (3) Pneumonia Assessment & Plan: On IV Rocephin. Status: Resolved (4) Hyperkalemia Status: Resolved (5) Hyponatremia Status: Acute (6) Acute diastolic (congestive) heart failure Status: Resolved (7) Acute bacterial endocarditis Status: Acute (8) Acute non-ST elevation myocardial infarction (NSTEMI) Status: Acute (9) Bilateral pleural effusion Assessment & Plan: S/p right pleurodesis POD#3 Status: Acute
[2018-04-22] MEDS: Albuterol-Ipratrop 3 mg / 0.5 (3 ml) UD INH SCH ×6 (00:41→19:38)
[2018-04-22] MEDS: Acetylcysteine 20% Inhal Soln (4ml) INH SCH ×4 (03:24→19:38)
[2018-04-22 05:46] LABS: BASO % 0.3 % (0.0-2.0); EOS % 0.7 % (0.0-4.0); HEMOGLOBIN 8.5 g/dL (12.0-18.0); LYMPH # 0.6 K/uL (1.0-4.3); MEAN CELL VOLUME 88.6 fL (80.0-94.0); MEAN CORPUSCULAR HEMOGLOBIN 29.5 pg (27.0-31.0); MEAN CORPUSCULAR HGB CONC 33.3 g/dL (33.0-37.0); MEAN PLATELET VOLUME 8.1 fL (7.2-11.7); MONO # 0.3 K/uL (0.0-0.8); NEUT # 4.3 K/uL (1.8-7.0); NRBC % 0.1 % (0.0-2.0); RBC 2.89 Mil/uL (4.40-5.90); WHITE BLOOD COUNT 5.2 K/uL (4.8-10.8)
[2018-04-22 05:57] LABS: ALB/GLOB RATIO 0.9 (1.0-2.1); ALBUMIN 2.4 g/dL (3.5-5.0); ALT/SGPT 27 U/L (21-72); AST/SGOT 18 U/L (17-59); BLOOD UREA NITROGEN 33 mg/dL (9-20); CALCIUM 8.1 mg/dl (8.6-10.4); GFR NON-AFRICAN AMERICAN > 60
--- NOTE | 2018-04-22 06:21 | CP.PCM.PN ---
Subjective - Date & Time of Evaluation Date of Evaluation: 04/22/18 Time of Evaluation: 06:20 - Subjective Subjective: labs noted chart reviewed pt denies any nasuea vomiting diarrhea sob dizziness headache chest tube in place draining fair amount Objective - Vital Signs/Intake and Output Vital Signs (last 24 hours): Temp Pulse Resp BP Pulse Ox 98.8 F 105 H 14 117/42 L 100 04/22/18 04:00 04/22/18 06:00 04/22/18 06:00 04/22/18 02:58 04/22/18 06:00 Intake and Output: 04/21/18 04/22/18 18:59 06:59 Intake Total 350 Output Total 400 195 Balance -400 155 - Medications Medications: Current Medications Acetaminophen (Tylenol 325mg Tab) 650 mg PO Q4 PRN PRN Reason: Pain, Mild (1-3) Last Admin: 04/21/18 02:03 Dose: 650 mg Acetylcysteine (Acetylcysteine 20%) 4 ml INH RQ6 [facility] Last Admin: 04/21/18 19:55 Dose: 4 ml Albuterol/Ipratropium (Duoneb 3 Mg/0.5 Mg (3 Ml) Ud) 3 ml INH RQ4 [facility] Last Admin: 04/22/18 00:41 Dose: 3 ml Benzocaine/Menthol (Cepacol Sore Throat) 1 keely MT Q2 PRN PRN Reason: Sore Throat Heparin Sodium (Porcine) (Heparin) 5,000 units SC Q12 [facility] Last Admin: 04/21/18 21:02 Dose: 5,000 units Midodrine (Proamatine) 2.5 mg PO Q8 [facility] Last Admin: 04/22/18 06:12 Dose: 2.5 mg Pantoprazole Sodium (Protonix Ec Tab) 40 mg PO DAILY [facility] Last Admin: 04/21/18 09:42 Dose: 40 mg Tamsulosin HCl (Flomax) 0.4 mg PO DAILY [facility] Last Admin: 04/21/18 10:00 Dose: 0.4 mg - Labs Labs: 04/22/18 04:00 04/22/18 05:41 PT 12.2 SECONDS (9.7-12.2) 04/17/18 07:07 INR 1.1 04/17/18 07:07 APTT 29 SECONDS (21-34) 04/17/18 07:07 - Constitutional Appears: No Acute Distress, Older Than Stated Age, Chronically Ill - Head Exam Head Exam: NORMAL INSPECTION - Eye Exam Eye Exam: Normal appearance Pupil Exam: PERRL - ENT Exam ENT Exam: Mucous Membranes Moist, Normal Exam - Neck Exam Neck Exam: Normal Inspection - Respiratory Exam Respiratory Exam: Decreased Breath Sounds, NORMAL BREATHING PATTERN - Cardiovascular Exam Cardiovascular Exam: Tachycardia, REGULAR RHYTHM - GI/Abdominal Exam GI & Abdominal Exam: Distended, Soft - Extremities Exam Extremities Exam: Normal Inspection Assessment and Plan (1) Acute bacterial endocarditis Status: Acute (2) Acute non-ST elevation myocardial infarction (NSTEMI) Status: Acute (3) Anemia Status: Acute (4) Bilateral pleural effusion Status: Acute (5) Hyponatremia Status: Acute - Assessment and Plan (Free Text) Assessment: hyponatremia -repeat urine na and osm -fluid restriction
[2018-04-22] MEDS: Pantoprazole 40 mg EC Tab PO SCH (09:31)
--- NOTE | 2018-04-22 09:42 | RAD ---
Date of service: 04/22/2018 HISTORY: Monitoring CT placement etc COMPARISON: April 21, 2018. Multiple serial examinations preceding the most recent study: FINDINGS: LUNGS: Stable consolidative changes bilaterally left lung more extensive than right. PLEURA: Stable position of chest tubes in the right pleural space. No visible pneumothorax. CARDIOVASCULAR: No significant interval change compared to the prior examination(s). OSSEOUS STRUCTURES: No significant abnormalities. VISUALIZED UPPER ABDOMEN: Normal. OTHER FINDINGS: None. IMPRESSION: No significant interval change compared to the prior examination(s).
--- NOTE | 2018-04-22 12:21 | CP.PCM.PN ---
Subjective - Date & Time of Evaluation Date of Evaluation: 04/22/18 Time of Evaluation: 12:18 - Subjective Subjective: Surgery PT seen and examined. No acute events. CT in place. No leak. Denies SOB, CP. OOB. tolerating diet. Saturating at 88% Objective - Vital Signs/Intake and Output Vital Signs (last 24 hours): Temp Pulse Resp BP Pulse Ox 97.4 F L 109 H 25 H 110/37 L 100 04/22/18 08:00 04/22/18 10:00 04/22/18 10:00 04/22/18 08:58 04/22/18 10:00 Intake and Output: 04/22/18 04/22/18 06:59 18:59 Intake Total 350 Output Total 195 Balance 155 - Medications Medications: Current Medications Acetaminophen (Tylenol 325mg Tab) 650 mg PO Q4 PRN PRN Reason: Pain, Mild (1-3) Last Admin: 04/21/18 02:03 Dose: 650 mg Acetylcysteine (Acetylcysteine 20%) 4 ml INH RQ6 [facility] Last Admin: 04/22/18 07:38 Dose: 4 ml Albuterol/Ipratropium (Duoneb 3 Mg/0.5 Mg (3 Ml) Ud) 3 ml INH RQ4 [facility] Last Admin: 04/22/18 11:19 Dose: 3 ml Benzocaine/Menthol (Cepacol Sore Throat) 1 keely MT Q2 PRN PRN Reason: Sore Throat Heparin Sodium (Porcine) (Heparin) 5,000 units SC Q12 [facility] Last Admin: 04/22/18 09:37 Dose: 5,000 units Midodrine (Proamatine) 2.5 mg PO Q8 [facility] Last Admin: 04/22/18 06:12 Dose: 2.5 mg Pantoprazole Sodium (Protonix Ec Tab) 40 mg PO DAILY [facility] Last Admin: 04/22/18 09:31 Dose: 40 mg Tamsulosin HCl (Flomax) 0.4 mg PO DAILY [facility] Last Admin: 04/22/18 09:37 Dose: 0.4 mg - Labs Labs: 04/22/18 04:00 04/22/18 05:41 PT 12.2 SECONDS (9.7-12.2) 04/17/18 07:07 INR 1.1 04/17/18 07:07 APTT 29 SECONDS (21-34) 04/17/18 07:07 - Constitutional Appears: No Acute Distress, Cachectic - Head Exam Head Exam: ATRAUMATIC, NORMOCEPHALIC - Eye Exam Eye Exam: EOMI, Normal appearance, PERRL - ENT Exam ENT Exam: Mucous Membranes Moist - Neck Exam Neck Exam: Full ROM, Normal Inspection. absent: Lymphadenopathy - Respiratory Exam Respiratory Exam: NORMAL BREATHING PATTERN Additional comments: R CT in place 50cc ant, 200cc post over 24hrs. both SS - Cardiovascular Exam Cardiovascular Exam: Tachycardia - GI/Abdominal Exam GI & Abdominal Exam: Soft. absent: Tenderness - Back Exam Back Exam: NORMAL INSPECTION - Neurological Exam Neurological Exam: Alert, Awake, CN II-XII Intact, Normal Gait, Oriented x3 - Psychiatric Exam Psychiatric exam: Normal Affect, Normal Mood - Skin Skin Exam: Dry, Intact, Normal Color, Warm Assessment and Plan - Assessment and Plan (Free Text) Assessment: 67M POD#5 Right thoracostomy tube insertion x 2 with pleurodesis now with hypotension in ICU CT Chest with small anterior and posterior pneumothorax , RLL atelectasis CXR no pneumothorax noted. CT in good place. saturating at 88% Plan: Monitor CT output CT to suction 10mmhg Daily CXR Monitor VS Further mgmt as per primary & ICU teams GUSTAVO Michel
--- NOTE | 2018-04-22 12:46 | CP.PCM.PN ---
Subjective - Date & Time of Evaluation Date of Evaluation: 04/22/18 Time of Evaluation: 08:00 - Subjective Subjective: PT seen and examined. No acute events. CT in place. No leak Objective - Vital Signs/Intake and Output Vital Signs (last 24 hours): Temp Pulse Resp BP Pulse Ox 97.4 F L 109 H 25 H 110/37 L 100 04/22/18 08:00 04/22/18 10:00 04/22/18 10:00 04/22/18 08:58 04/22/18 10:00 Intake and Output: 04/22/18 04/22/18 06:59 18:59 Intake Total 350 Output Total 195 Balance 155 - Medications Medications: Current Medications Acetaminophen (Tylenol 325mg Tab) 650 mg PO Q4 PRN PRN Reason: Pain, Mild (1-3) Last Admin: 04/21/18 02:03 Dose: 650 mg Acetylcysteine (Acetylcysteine 20%) 4 ml INH RQ6 [facility] Last Admin: 04/22/18 07:38 Dose: 4 ml Albuterol/Ipratropium (Duoneb 3 Mg/0.5 Mg (3 Ml) Ud) 3 ml INH RQ4 [facility] Last Admin: 04/22/18 11:19 Dose: 3 ml Benzocaine/Menthol (Cepacol Sore Throat) 1 keely MT Q2 PRN PRN Reason: Sore Throat Heparin Sodium (Porcine) (Heparin) 5,000 units SC Q12 [facility] Last Admin: 04/22/18 09:37 Dose: 5,000 units Midodrine (Proamatine) 2.5 mg PO Q8 [facility] Last Admin: 04/22/18 06:12 Dose: 2.5 mg Pantoprazole Sodium (Protonix Ec Tab) 40 mg PO DAILY [facility] Last Admin: 04/22/18 09:31 Dose: 40 mg Tamsulosin HCl (Flomax) 0.4 mg PO DAILY [facility] Last Admin: 04/22/18 09:37 Dose: 0.4 mg - Labs Labs: 04/22/18 04:00 04/22/18 05:41 PT 12.2 SECONDS (9.7-12.2) 04/17/18 07:07 INR 1.1 04/17/18 07:07 APTT 29 SECONDS (21-34) 04/17/18 07:07 - Constitutional Appears: Non-toxic, Chronically Ill - Head Exam Head Exam: NORMOCEPHALIC - Eye Exam Eye Exam: absent: PERRL, Scleral icterus Pupil Exam: absent: NORMAL ACCOMODATION, PERRL Additional comments: blind left eye - ENT Exam ENT Exam: Mucous Membranes Dry - Neck Exam Neck Exam: absent: Lymphadenopathy - Respiratory Exam Respiratory Exam: Decreased Breath Sounds, Rhonchi - Cardiovascular Exam Cardiovascular Exam: REGULAR RHYTHM - GI/Abdominal Exam GI & Abdominal Exam: Distended, Soft - Rectal Exam Rectal Exam: Deferred - Exam Exam: NORMAL INSPECTION - Extremities Exam Extremities Exam: absent: Pedal Edema - Back Exam Back Exam: absent: CVA tenderness (L), CVA tenderness (R), paraspinal tenderness - Neurological Exam Neurological Exam: Alert, Awake - Psychiatric Exam Psychiatric exam: Depressed Assessment and Plan (1) Anemia Status: Acute (2) Pneumonia Status: Resolved (3) Lower GI bleeding Status: Resolved (4) Mass in rectum Status: Acute (5) Rectal adenocarcinoma Status: Acute (6) Endocarditis Status: Acute
--- NOTE | 2018-04-22 14:39 | CP.PCM.PN ---
Subjective - Date & Time of Evaluation Date of Evaluation: 04/22/18 Time of Evaluation: 14:34 - Subjective Subjective: Patient has no complaint of SOB or chest hilaria. Appetite better, afebrile. On Zosyn IV. Hgb: 8.4 BUN: 33 creatinine: 1.1 . Chest tube still draining jeffrey colored fluid. CXR unchanged from yesterday. Objective - Vital Signs/Intake and Output Vital Signs (last 24 hours): Temp Pulse Resp BP Pulse Ox 97.4 F L 109 H 25 H 110/37 L 100 04/22/18 08:00 04/22/18 10:00 04/22/18 10:00 04/22/18 08:58 04/22/18 10:00 Intake and Output: 04/22/18 04/22/18 06:59 18:59 Intake Total 350 Output Total 195 Balance 155 - Medications Medications: Current Medications Acetaminophen (Tylenol 325mg Tab) 650 mg PO Q4 PRN PRN Reason: Pain, Mild (1-3) Last Admin: 04/21/18 02:03 Dose: 650 mg Acetylcysteine (Acetylcysteine 20%) 4 ml INH RQ6 [facility] Last Admin: 04/22/18 11:30 Dose: 4 ml Albuterol/Ipratropium (Duoneb 3 Mg/0.5 Mg (3 Ml) Ud) 3 ml INH RQ4 [facility] Last Admin: 04/22/18 11:19 Dose: 3 ml Benzocaine/Menthol (Cepacol Sore Throat) 1 keely MT Q2 PRN PRN Reason: Sore Throat Heparin Sodium (Porcine) (Heparin) 5,000 units SC Q12 [facility] Last Admin: 04/22/18 09:37 Dose: 5,000 units Midodrine (Proamatine) 2.5 mg PO Q8 [facility] Last Admin: 04/22/18 13:22 Dose: 2.5 mg Pantoprazole Sodium (Protonix Ec Tab) 40 mg PO DAILY [facility] Last Admin: 04/22/18 09:31 Dose: 40 mg Tamsulosin HCl (Flomax) 0.4 mg PO DAILY [facility] Last Admin: 04/22/18 09:37 Dose: 0.4 mg - Labs Labs: 04/22/18 04:00 04/22/18 05:41 PT 12.2 SECONDS (9.7-12.2) 04/17/18 07:07 INR 1.1 04/17/18 07:07 APTT 29 SECONDS (21-34) 04/17/18 07:07 - Constitutional Appears: No Acute Distress, Cachectic, Chronically Ill - Head Exam Head Exam: NORMAL INSPECTION - Eye Exam Eye Exam: Normal appearance - ENT Exam ENT Exam: Normal Exam - Neck Exam Neck Exam: Normal Inspection - Respiratory Exam Respiratory Exam: Rhonchi Additional comments: Rhonchi heard at both bases. - Cardiovascular Exam Cardiovascular Exam: REGULAR RHYTHM, Murmur - GI/Abdominal Exam GI & Abdominal Exam: Soft, Normal Bowel Sounds - Extremities Exam Extremities Exam: Normal Inspection - Back Exam Back Exam: NORMAL INSPECTION - Neurological Exam Neurological Exam: Alert, Oriented x3 - Psychiatric Exam Psychiatric exam: Anxious - Skin Skin Exam: Dry, Intact, Normal Color, Warm Assessment and Plan (1) Lower GI bleeding Assessment & Plan: Occasional rectal bleeding. Status: Resolved (2) Anemia Assessment & Plan: Today Hgb: 8.4 Status: Acute (3) Pneumonia Assessment & Plan: On Zosyn. Status: Resolved (4) Hyperkalemia Status: Resolved (5) Hyponatremia Status: Acute (6) Acute diastolic (congestive) heart failure Status: Resolved (7) Acute bacterial endocarditis Assessment & Plan: On IV Zosyn. Status: Acute (8) Acute non-ST elevation myocardial infarction (NSTEMI) Status: Acute (9) Bilateral pleural effusion Assessment & Plan: S/p right pleurodesis POD# 5. Status: Acute
--- NOTE | 2018-04-22 15:31 | CP.PCM.CON ---
History of Present Illness - History of Present Illness History of Present Illness: Palliative consult requested by Doctor Alarcon for goals of care discussion Patient is a 67 yo male sent in from Doctor Nicole's office for blood transfusion, due to rectal bleed and overall weakness. Pelvis MRI on admission was significant for irregular rectal mass without extending beyond serosa. Per , patient received one dose of radiation, than got very sick. CT chest showed pleural effusion and patient had thoracentesis on 03/21/18 with 1.5 l fluid removal. The pleural effusion reoccured and right chest tube placed in by Doctor Watson. Patient remains with Hb of 8.5. No further rectal bleed was observed. Patient has received multiple blood Tx. Patient does not have Code status defined. Palliative care was called to assist in process. PMH: rectal cancer, anemia, HTN, left eye blindess Soc. Hx: , lives at home Fam. Hx: denies hX OF CANCER Review of Systems - Review of Systems All systems: reviewed and no additional remarkable complaints except Review of Systems: ROS unobtainable from patient due to weakness. ROS obtained from nursing. Per nursing patient had been tired for most of the day Past Patient History - Tetanus Immunizations Tetanus Immunization: Unknown - Past Medical History & Family History Past Medical History?: Yes Past Family History: Reviewed and not pertinent - Past Social History Smoking Status: Former Smoker Chewing Tobacco Use: No Cigar Use: No Alcohol: None Drugs: Denies Home Situation {Lives}: With Family Domestic Violence: Negative - CARDIAC Hx Hypercholesterolemia: Yes Hx Hypertension: Yes - PULMONARY Hx Respiratory Disorders: No - NEUROLOGICAL Hx Neurological Disorder: No - HEENT Hx HEENT Problems: Yes Hx Blind: Yes (left eye) Other/Comment: 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 - GENITOURINARY/GYNECOLOGICAL Hx Genitourinary Disorders: No - PSYCHIATRIC Hx Substance Use: No - SURGICAL HISTORY Hx Surgeries: Yes Hx Herniorrhaphy: Yes (left) - ANESTHESIA Hx Anesthesia: Yes Hx Anesthesia Reactions: No Meds Allergies/Adverse Reactions: Allergies Allergy/AdvReac Type Severity Reaction Status Date / Time aspirin Allergy Verified 03/18/18 16:47 - Medications Medications: Current Medications Acetaminophen (Tylenol 325mg Tab) 650 mg PO Q4 PRN PRN Reason: Pain, Mild (1-3) Last Admin: 04/21/18 02:03 Dose: 650 mg Acetylcysteine (Acetylcysteine 20%) 4 ml INH RQ6 [facility] Last Admin: 04/22/18 11:30 Dose: 4 ml Albuterol/Ipratropium (Duoneb 3 Mg/0.5 Mg (3 Ml) Ud) 3 ml INH RQ4 [facility] Last Admin: 04/22/18 11:19 Dose: 3 ml Benzocaine/Menthol (Cepacol Sore Throat) 1 keely MT Q2 PRN PRN Reason: Sore Throat Heparin Sodium (Porcine) (Heparin) 5,000 units SC Q12 [facility] Last Admin: 04/22/18 09:37 Dose: 5,000 units Piperacillin Sod/Tazobactam (Sod 3.375 gm/ Sodium Chloride) 100 mls @ 200 mls/hr IVPB Q8H [facility]; Protocol Midodrine (Proamatine) 2.5 mg PO Q8 [facility] Last Admin: 04/22/18 13:22 Dose: 2.5 mg Pantoprazole Sodium (Protonix Ec Tab) 40 mg PO DAILY [facility] Last Admin: 04/22/18 09:31 Dose: 40 mg Tamsulosin HCl (Flomax) 0.4 mg PO DAILY [facility] Last Admin: 04/22/18 09:37 Dose: 0.4 mg Physical Exam - Constitutional Appears: Chronically Ill - Head Exam Head Exam: ATRAUMATIC, NORMAL INSPECTION, NORMOCEPHALIC - Eye Exam Eye Exam: EOMI, Normal appearance, PERRL Pupil Exam: NORMAL ACCOMODATION, PERRL Additional comments: left eye blindness, left eye lid drop - ENT Exam ENT Exam: Mucous Membranes Moist, Normal Exam - Neck Exam Neck exam: Positive for: Normal Inspection - Respiratory Exam Respiratory Exam: Decreased Breath Sounds, NORMAL BREATHING PATTERN - GI/Abdominal Exam GI & Abdominal Exam: Normal Bowel Sounds - Rectal Exam Rectal Exam: Deferred - Exam Exam: NORMAL INSPECTION - Extremities Exam Extremities exam: Positive for: normal inspection - Back Exam Back exam: NORMAL INSPECTION - Neurological Exam Neurological exam: Oriented x3 - Psychiatric Exam Psychiatric exam: Flat Affect - Skin Skin Exam: Dry, Intact, Pallor Results - Vital Signs Recent Vital Signs: Last Vital Signs Temp 97.4 F L 04/22/18 08:00 Pulse 109 H 04/22/18 10:00 Resp 25 H 04/22/18 10:00 BP 110/37 L 04/22/18 08:58 Pulse Ox 100 04/22/18 10:00 - Labs Result Diagrams: 04/22/18 04:00 04/22/18 05:41 Labs: Laboratory Results - last 24 hr 04/18/18 04/18/18 04/18/18 09:10 09:10 09:10 WBC RBC Hgb Hct MCV MCH MCHC RDW Plt Count MPV Neut % (Auto) Lymph % (Auto) [place] % (Auto) Eos % (Auto) Baso % (Auto) Neut # (Auto) Lymph # (Auto) [place] # (Auto) Eos # (Auto) Baso # (Auto) Sodium Potassium Chloride Carbon Dioxide Anion Gap BUN Creatinine Est GFR ( Amer) Est GFR (Non-Af Amer) Random Glucose Calcium Phosphorus Magnesium Total Bilirubin AST ALT Alkaline Phosphatase Total Protein Albumin Globulin Albumin/Globulin Ratio Pleural Total Protein <3.0 Pleural LDH 215 Pleural Glucose 147 Pleural Amylase 04/18/18 04/22/18 04/22/18 09:10 04:00 05:41 WBC 5.2 RBC 2.89 L Hgb 8.5 L Hct 25.6 L MCV 88.6 MCH 29.5 MCHC 33.3 RDW 19.0 H Plt Count 150 MPV 8.1 Neut % (Auto) 83.0 H Lymph % (Auto) 11.0 L [place] % (Auto) 5.0 Eos % (Auto) 0.7 Baso % (Auto) 0.3 Neut # (Auto) 4.3 Lymph # (Auto) 0.6 L [place] # (Auto) 0.3 Eos # (Auto) 0.0 Baso # (Auto) 0.0 Sodium 131 L Potassium 4.2 Chloride 99 Carbon Dioxide 24 Anion Gap 11 BUN 33 H Creatinine 0.9 Est GFR ( Amer) > 60 Est GFR (Non-Af Amer) > 60 Random Glucose 129 H Calcium 8.1 L Phosphorus 3.2 Magnesium 2.2 Total Bilirubin 0.8 AST 18 ALT 27 Alkaline Phosphatase 84 Total Protein 5.0 L Albumin 2.4 L Globulin 2.7 Albumin/Globulin Ratio 0.9 L Pleural Total Protein Pleural LDH Pleural Glucose Pleural Amylase 14 Assessment & Plan - Assessment and Plan (Free Text) Assessment: Palliative consult I reviewed Medical records, all diagnostic studies, examined patient in the bed. Full Code, there is no advance directive on chart, PPS 10% Patient is alert, very sleepy, admits to be feeling very tired and asked to be allowed to rest. at bed side. With patient's permission, goals of care discussed with at bed side. Patient looks very ill. Skin pale. Hb 8.5. Breath sounds diminished, right chest tube in place, drainage clear yellow. Abdomen soft, decreased bowel sounds. Per , patient has a poor appetite, eats only a 1/2 cup of pureed food. No rectal bleeding for while as per nurse. Patient able to move all 4 extremities. BP 110/37, HR 109 ST, afebrile Hb 8.5, WBC 5.2, Na 131 Goals of care discussed with patient's at bed side. I reviewed patient's clinical presentation and elicited her understanding of patient's diagnosis. The showed very poor understanding of patient's condition. She is solely focu sed on cure and keeps repeating how her brother in law survived after being in coma for 3 months. I saskia my concerns regarding recurring pleural effusions and the need for Chest tube as well as patient's overall very poor presentation. Unfortunately, the did not understand the severity of her 's condition. Code status discussed. DNR/DNI discussed in length. chose that all aggres sive measures should be applied to support her 's life , regardless of quality of life. I shared this with his primary nurse Adrianne. Impression * This is a very sick male with rectal adenocarcinoma * Anemia due to rectal bleeding * Generalized weakness * Poor appetite * advocates for patient but has very poor input in patient's condition and limited ability to understand it Suggestions * Transfuse blood if Hb < 8.0 * Assist with ADLs * Offer food of choice, add Ensure as a supplement * Full Code as per 's request I will meet with patient alone in am and see what are his wishes for the end of life care. Advanced care planing 40 min.
--- NOTE | 2018-04-22 15:56 | CP.PCM.PN ---
Subjective - Date & Time of Evaluation Date of Evaluation: 04/22/18 Time of Evaluation: 14:55 - Subjective Subjective: patient seen and examined [address] CAT scan of the chest consistent with slight increase in pneumothorax and bilateral pneumonia Objective - Vital Signs/Intake and Output Vital Signs (last 24 hours): Temp Pulse Resp BP Pulse Ox 97.4 F L 109 H 25 H 110/37 L 100 04/22/18 08:00 04/22/18 10:00 04/22/18 10:00 04/22/18 08:58 04/22/18 10:00 Intake and Output: 04/22/18 04/22/18 06:59 18:59 Intake Total 350 Output Total 195 Balance 155 - Medications Medications: Current Medications Acetaminophen (Tylenol 325mg Tab) 650 mg PO Q4 PRN PRN Reason: Pain, Mild (1-3) Last Admin: 04/21/18 02:03 Dose: 650 mg Acetylcysteine (Acetylcysteine 20%) 4 ml INH RQ6 [facility] Last Admin: 04/22/18 11:30 Dose: 4 ml Albuterol/Ipratropium (Duoneb 3 Mg/0.5 Mg (3 Ml) Ud) 3 ml INH RQ4 [facility] Last Admin: 04/22/18 11:19 Dose: 3 ml Benzocaine/Menthol (Cepacol Sore Throat) 1 keely MT Q2 PRN PRN Reason: Sore Throat Heparin Sodium (Porcine) (Heparin) 5,000 units SC Q12 [facility] Last Admin: 04/22/18 09:37 Dose: 5,000 units Piperacillin Sod/Tazobactam (Sod 3.375 gm/ Sodium Chloride) 100 mls @ 200 mls/hr IVPB Q8H [facility]; Protocol Midodrine (Proamatine) 2.5 mg PO Q8 [facility] Last Admin: 04/22/18 13:22 Dose: 2.5 mg Pantoprazole Sodium (Protonix Ec Tab) 40 mg PO DAILY [facility] Last Admin: 04/22/18 09:31 Dose: 40 mg Tamsulosin HCl (Flomax) 0.4 mg PO DAILY [facility] Last Admin: 04/22/18 09:37 Dose: 0.4 mg - Labs Labs: 04/22/18 04:00 04/22/18 05:41 PT 12.2 SECONDS (9.7-12.2) 04/17/18 07:07 INR 1.1 04/17/18 07:07 APTT 29 SECONDS (21-34) 04/17/18 07:07 - ENT Exam ENT Exam: Mucous Membranes Moist - Neck Exam Neck Exam: Normal Inspection - Respiratory Exam Respiratory Exam: Decreased Breath Sounds - Cardiovascular Exam Cardiovascular Exam: REGULAR RHYTHM - GI/Abdominal Exam GI & Abdominal Exam: Soft, Normal Bowel Sounds Assessment and Plan (1) Bilateral pleural effusion Assessment & Plan: Status post chest tube insertions and pleurodesis Continue antibiotics Infectious disease follow-up Status: Acute (2) Lung nodule < 6cm on CT Status: Acute
[2018-04-22] MEDS: Piperacillin/Tazobact 3.375 GM in Sodium Chloride 100 ML IVPB SCH (16:35)
[2018-04-22] MEDS ORDERED: cefTRIAXone 2 GM in Sodium Chloride 0.9% 100 ML IVPB SCH (22:00)
[2018-04-23] MEDS: Piperacillin/Tazobact 3.375 GM in Sodium Chloride 100 ML IVPB SCH ×4 (00:02→22:10)
[2018-04-23] MEDS: Albuterol-Ipratrop 3 mg / 0.5 (3 ml) UD INH SCH ×3 (01:34→11:52)
[2018-04-23] MEDS: Acetylcysteine 20% Inhal Soln (4ml) INH SCH ×4 (01:34→20:14)
[2018-04-23 05:12] LABS: OSMOLALITY,URINE 615 mosm/kg (300-1000)
[2018-04-23 05:43] VITALS: O2SAT 100
[2018-04-23] MEDS: Pantoprazole 40 mg EC Tab PO SCH (09:53)
--- NOTE | 2018-04-23 10:01 | RAD ---
Date of service: 04/23/2018 HISTORY: Monitoring CT placement etc COMPARISON: 04/22/2018 FINDINGS: LUNGS: Opacity left parahilar and left base. Patchy opacity at right base. No change from prior PLEURA: . two right chest tubes extend towards apex. Trace right pneumothorax appreciated. Moderate left pleural effusion. No right pleural effusion. CARDIOVASCULAR: Normal heart size. No congestive change. OSSEOUS STRUCTURES: No significant abnormalities. VISUALIZED UPPER ABDOMEN: Normal. OTHER FINDINGS: None. IMPRESSION: Two right apical chest tubes. Trace right apical pneumothorax. Moderate left pleural effusion. Patchy right basilar and left parahilar/basilar opacities unchanged.
[2018-04-23] MEDS: Dexmedetomidine Hydrochloride 200 MCG in Sodium Chloride 0.9% 48 ML IV PRN ×3 (11:53→22:05)
--- NOTE | 2018-04-23 12:15 | RAD ---
Date of service: 04/23/2018 HISTORY: Intubated. COMPARISON: Comparison made with prior study 04/23/2018 at 0703 hr. FINDINGS: In situ ETT, tip of which lies approximately 0.4 cm above spencer. NGT is present, the tip of which terminates left upper quadrant of the abdomen. Re demonstrated are 2 in situ right-sided chest tubes. LUNGS: Pulmonary venous congestive changes with bilateral lower lobe alveolar-type infiltrates and bilateral effusions left larger than right. Small right apical pneumothorax felt to be present PLEURA: As above. CARDIOVASCULAR: Heart appears enlarged. OSSEOUS STRUCTURES: No significant abnormalities. VISUALIZED UPPER ABDOMEN: Normal. OTHER FINDINGS: None. IMPRESSION: Support lines and tubes as above. Pulmonary venous congestive changes with bilateral lower lobe alveolar-type infiltrates and bilateral effusions left larger than right. Small right apical pneumothorax felt to be present
--- NOTE | 2018-04-23 12:46 | CP.PCM.CON ---
History of Present Illness - History of Present Illness History of Present Illness: intubated in icu CT in place right side IV antibiotics switched to Zosyn for possible HAP recultured Review of Systems - Review of Systems Systems not reviewed;Unavailable: Altered Mental Status All systems: reviewed and no additional remarkable complaints except - Constitutional Constitutional: As Per HPI Past Patient History - Tetanus Immunizations Tetanus Immunization: Unknown - Past Medical History & Family History Past Medical History?: Yes Past Family History: Reviewed and not pertinent - Past Social History Smoking Status: Former Smoker Chewing Tobacco Use: No Cigar Use: No Alcohol: None Drugs: Denies Home Situation {Lives}: With Family Domestic Violence: Negative - CARDIAC Hx Hypercholesterolemia: Yes Hx Hypertension: Yes - PULMONARY Hx Respiratory Disorders: No - NEUROLOGICAL Hx Neurological Disorder: No - HEENT Hx HEENT Problems: Yes Hx Blind: Yes (left eye) Other/Comment: 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 - GENITOURINARY/GYNECOLOGICAL Hx Genitourinary Disorders: No - PSYCHIATRIC Hx Substance Use: No - SURGICAL HISTORY Hx Surgeries: Yes Hx Herniorrhaphy: Yes (left) - ANESTHESIA Hx Anesthesia: Yes Hx Anesthesia Reactions: No Meds Allergies/Adverse Reactions: Allergies Allergy/AdvReac Type Severity Reaction Status Date / Time aspirin Allergy Verified 03/18/18 16:47 - Medications Medications: Current Medications Acetaminophen (Tylenol 325mg Tab) 650 mg PO Q4 PRN PRN Reason: Pain, Mild (1-3) Last Admin: 04/21/18 02:03 Dose: 650 mg Acetylcysteine (Acetylcysteine 20%) 4 ml INH RQ6 [facility] Last Admin: 04/23/18 07:43 Dose: 4 ml Albuterol/Ipratropium (Duoneb 3 Mg/0.5 Mg (3 Ml) Ud) 3 ml INH RQ4 [facility] Last Admin: 04/23/18 11:52 Dose: Not Given Benzocaine/Menthol (Cepacol Sore Throat) 1 keely MT Q2 PRN PRN Reason: Sore Throat Heparin Sodium (Porcine) (Heparin) 5,000 units SC Q12 [facility] Last Admin: 04/23/18 09:53 Dose: 5,000 units Piperacillin Sod/Tazobactam (Sod 3.375 gm/ Sodium Chloride) 100 mls @ 200 mls/hr IVPB Q8H [facility]; Protocol Last Admin: 04/23/18 05:59 Dose: 200 mls/hr Ceftriaxone Sodium 2 gm/ (Sodium Chloride) 100 mls @ 100 mls/hr IVPB Q24H [facility]; Protocol Last Admin: 04/22/18 22:19 Dose: 100 mls/hr Dexmedetomidine HCl 200 mcg/ (Sodium Chloride) 50 mls @ 2.45 mls/hr IV TITR PRN; Protocol PRN Reason: Sedation Last Admin: 04/23/18 11:53 Dose: 0.5 mcg/kg/hr, 6.12 mls/hr Midodrine (Proamatine) 2.5 mg PO Q8 [facility] Last Admin: 04/23/18 05:56 Dose: 2.5 mg Pantoprazole Sodium (Protonix Ec Tab) 40 mg PO DAILY [facility] Last Admin: 04/23/18 09:53 Dose: 40 mg Tamsulosin HCl (Flomax) 0.4 mg PO DAILY [facility] Last Admin: 04/23/18 09:53 Dose: 0.4 mg Physical Exam - Constitutional Appears: Cachectic, Chronically Ill - Head Exam Head Exam: NORMOCEPHALIC - Eye Exam Eye Exam: absent: PERRL, Scleral icterus Pupil Exam: Irregular - ENT Exam ENT Exam: Mucous Membranes Dry - Neck Exam Neck exam: Negative for: Lymphadenopathy - Respiratory Exam Respiratory Exam: Decreased Breath Sounds, Rhonchi - Cardiovascular Exam Cardiovascular Exam: REGULAR RHYTHM, +S1, +S2 - GI/Abdominal Exam GI & Abdominal Exam: Diminished Bowel Sounds, Soft. absent: Tenderness - Rectal Exam Rectal Exam: Deferred - Exam Exam: NORMAL INSPECTION - Extremities Exam Extremities exam: Positive for: pedal pulses present. Negative for: calf tenderness, pedal edema, tenderness - Back Exam Back exam: absent: CVA tenderness (L), CVA tenderness (R) - Neurological Exam Neurological exam: Altered - Psychiatric Exam Psychiatric exam: Depressed - Skin Skin Exam: Dry Results - Vital Signs Recent Vital Signs: Last Vital Signs Temp 98.2 F 04/23/18 08:00 Pulse 107 H 04/23/18 09:00 Resp 22 04/23/18 09:00 BP 102/38 L 04/23/18 08:03 Pulse Ox 100 04/23/18 09:00 - Labs Result Diagrams: 04/23/18 14:31 04/23/18 14:31 Labs: Laboratory Results - last 24 hr 04/23/18 04:38 Urine Osmolality 615 Ur Random Sodium < 5 Assessment & Plan (1) Anemia Status: Acute (2) Pneumonia Status: Resolved (3) Mass in rectum Status: Acute (4) Rectal adenocarcinoma Status: Acute (5) Endocarditis Status: Acute (6) Respiratory failure Status: Acute (7) Respiratory failure Status: Acute (8) Pneumonia Status: Acute (9) Pneumothorax on left Status: Acute (10) Pneumothorax on right Status: Acute - Assessment and Plan (Free Text) Assessment: IV antibiotics renewed prognosis remains poor
[2018-04-23] MEDS ORDERED: LIDOCAINE 2% PF (2ML) ONE (13:20)
[2018-04-23] MEDS ORDERED: Etomidate 20 mg/10ml Inj IV ONE (13:50)
--- NOTE | 2018-04-23 14:00 | CP.PCM.PN ---
Subjective - Date & Time of Evaluation Date of Evaluation: 04/23/18 Time of Evaluation: 13:57 - Subjective Subjective: Intubated now on sedation CXR showed CHF changes Na decreased to [address] Renal function stable Objective - Vital Signs/Intake and Output Vital Signs (last 24 hours): Temp Pulse Resp BP Pulse Ox 99.6 F 104 H 25 H 83/32 L 100 04/23/18 12:00 04/23/18 13:13 04/23/18 13:13 04/23/18 13:13 04/23/18 13:13 Intake and Output: 04/23/18 04/23/18 06:59 18:59 Intake Total 500 Output Total 170 50 Balance 330 -50 - Medications Medications: Current Medications Acetaminophen (Tylenol 325mg Tab) 650 mg PO Q4 PRN PRN Reason: Pain, Mild (1-3) Last Admin: 04/21/18 02:03 Dose: 650 mg Acetylcysteine (Acetylcysteine 20%) 4 ml INH RQ6 [facility] Last Admin: 04/23/18 07:43 Dose: 4 ml Benzocaine/Menthol (Cepacol Sore Throat) 1 keely MT Q2 PRN PRN Reason: Sore Throat Heparin Sodium (Porcine) (Heparin) 5,000 units SC Q12 [facility] Last Admin: 04/23/18 09:53 Dose: 5,000 units Piperacillin Sod/Tazobactam (Sod 3.375 gm/ Sodium Chloride) 100 mls @ 200 mls/hr IVPB Q8H [facility]; Protocol Last Admin: 04/23/18 05:59 Dose: 200 mls/hr Ceftriaxone Sodium 2 gm/ (Sodium Chloride) 100 mls @ 100 mls/hr IVPB Q24H [facility]; Protocol Last Admin: 04/22/18 22:19 Dose: 100 mls/hr Dexmedetomidine HCl 200 mcg/ (Sodium Chloride) 50 mls @ 2.45 mls/hr IV TITR PRN; Protocol PRN Reason: Sedation Last Admin: 04/23/18 11:53 Dose: 0.5 mcg/kg/hr, 6.12 mls/hr Midodrine (Proamatine) 2.5 mg PO Q8 [facility] Last Admin: 04/23/18 05:56 Dose: 2.5 mg Pantoprazole Sodium (Protonix Ec Tab) 40 mg PO DAILY [facility] Last Admin: 04/23/18 09:53 Dose: 40 mg Tamsulosin HCl (Flomax) 0.4 mg PO DAILY [facility] Last Admin: 04/23/18 09:53 Dose: 0.4 mg - Labs Labs: 04/22/18 04:00 04/22/18 05:41 PT 12.2 SECONDS (9.7-12.2) 04/17/18 07:07 INR 1.1 04/17/18 07:07 APTT 29 SECONDS (21-34) 04/17/18 07:07 - Constitutional Appears: In Acute Distress, Chronically Ill - Head Exam Head Exam: ATRAUMATIC, NORMAL INSPECTION - Eye Exam Eye Exam: Periorbital swelling - Respiratory Exam Respiratory Exam: Decreased Breath Sounds, Respiratory Distress - Cardiovascular Exam Cardiovascular Exam: REGULAR RHYTHM, +S1 - GI/Abdominal Exam GI & Abdominal Exam: Soft. absent: Tenderness - Extremities Exam Extremities Exam: Normal Inspection. absent: Tenderness - Neurological Exam Neurological Exam: Altered - Skin Skin Exam: Dry, Warm Assessment and Plan (1) Rectal cancer Status: Acute (2) Pleural effusion Status: Acute (3) Hyponatremia Status: Acute (4) Acute non-ST elevation myocardial infarction (NSTEMI) Status: Acute (5) Rectal adenocarcinoma Status: Acute - Assessment and Plan (Free Text) Plan: lasix IV x 1 follow up lytes respiratory care as per ICU team
--- NOTE | 2018-04-23 14:02 | CP.PCM.PN ---
Subjective - Date & Time of Evaluation Date of Evaluation: 04/23/18 Time of Evaluation: 13:59 - Subjective Subjective: P s/e. Intubated this am. chest tubes: 60/260/y ss-No air leak. cxr: pl effusion-L>>R. ? apical pneumo. a/p: Continue chest tubes to suction at 10cm. Dr Alarcon is to do bronch and a pig tail to left. Objective - Vital Signs/Intake and Output Vital Signs (last 24 hours): Temp Pulse Resp BP Pulse Ox 99.6 F 104 H 25 H 83/32 L 100 04/23/18 12:00 04/23/18 13:13 04/23/18 13:13 04/23/18 13:13 04/23/18 13:13 Intake and Output: 04/23/18 04/23/18 06:59 18:59 Intake Total 500 Output Total 170 50 Balance 330 -50 - Medications Medications: Current Medications Acetaminophen (Tylenol 325mg Tab) 650 mg PO Q4 PRN PRN Reason: Pain, Mild (1-3) Last Admin: 04/21/18 02:03 Dose: 650 mg Acetylcysteine (Acetylcysteine 20%) 4 ml INH RQ6 [facility] Last Admin: 04/23/18 07:43 Dose: 4 ml Benzocaine/Menthol (Cepacol Sore Throat) 1 keely MT Q2 PRN PRN Reason: Sore Throat Heparin Sodium (Porcine) (Heparin) 5,000 units SC Q12 [facility] Last Admin: 04/23/18 09:53 Dose: 5,000 units Piperacillin Sod/Tazobactam (Sod 3.375 gm/ Sodium Chloride) 100 mls @ 200 mls/hr IVPB Q8H [facility]; Protocol Last Admin: 04/23/18 05:59 Dose: 200 mls/hr Ceftriaxone Sodium 2 gm/ (Sodium Chloride) 100 mls @ 100 mls/hr IVPB Q24H [facility]; Protocol Last Admin: 04/22/18 22:19 Dose: 100 mls/hr Dexmedetomidine HCl 200 mcg/ (Sodium Chloride) 50 mls @ 2.45 mls/hr IV TITR PRN; Protocol PRN Reason: Sedation Last Admin: 04/23/18 11:53 Dose: 0.5 mcg/kg/hr, 6.12 mls/hr Midodrine (Proamatine) 2.5 mg PO Q8 [facility] Last Admin: 04/23/18 05:56 Dose: 2.5 mg Pantoprazole Sodium (Protonix Ec Tab) 40 mg PO DAILY [facility] Last Admin: 04/23/18 09:53 Dose: 40 mg Tamsulosin HCl (Flomax) 0.4 mg PO DAILY [facility] Last Admin: 04/23/18 09:53 Dose: 0.4 mg - Labs Labs: 04/22/18 04:00 04/22/18 05:41 PT 12.2 SECONDS (9.7-12.2) 04/17/18 07:07 INR 1.1 04/17/18 07:07 APTT 29 SECONDS (21-34) 04/17/18 07:07
[2018-04-23 14:12] LABS: VENOUS BLOOD GAS BASE EXCESS 0.8 mmol/L (0.0-2.0); VENOUS BLOOD GAS PCO2 39 mmHg (40-60); VENOUS BLOOD GAS PO2 14 mm/Hg (30-55); VENOUS BLOOD PH 7.42 (7.32-7.43)
--- NOTE | 2018-04-23 14:32 | CP.PCM.PN ---
Subjective - Date & Time of Evaluation Date of Evaluation: 04/23/18 Time of Evaluation: 14:05 - Subjective Subjective: Code blue note Code carley was called at 14:05 for bradycardia leading to PEA after bronchoscopy. Chest compressions were initiated and patient received epinepherine x4, 1 amp of bicarb, 1 amp of atropine as per ACLS protocol. ROSC achieved. Final rhythm was SVT. Vitals 14:09: 97/44, HR 154, SpO2 97, RR 19 Vitals 14:13 102/47 HR 142, SpO2 100%, RR 18 Plan: VBG: pH: 7.2, pCO2, pO2 14, Na 132, K: 5.4, Cl 103, Gluc 151, Lac 3.6 CBC with diff CMP, Mg, Phos PT, INR Troponin Objective - Vital Signs/Intake and Output Vital Signs (last 24 hours): Temp Pulse Resp BP Pulse Ox 99.6 F 104 H 25 H 83/32 L 100 04/23/18 12:00 04/23/18 13:13 04/23/18 13:13 04/23/18 13:13 04/23/18 13:13 Intake and Output: 04/23/18 04/23/18 06:59 18:59 Intake Total 500 Output Total 170 50 Balance 330 -50 - Medications Medications: Current Medications Acetaminophen (Tylenol 325mg Tab) 650 mg PO Q4 PRN PRN Reason: Pain, Mild (1-3) Last Admin: 04/21/18 02:03 Dose: 650 mg Acetylcysteine (Acetylcysteine 20%) 4 ml INH RQ6 ANIYAH Last Admin: 04/23/18 13:24 Dose: Not Given Benzocaine/Menthol (Cepacol Sore Throat) 1 keely MT Q2 PRN PRN Reason: Sore Throat Heparin Sodium (Porcine) (Heparin) 5,000 units SC Q12 ANIYAH Last Admin: 04/23/18 09:53 Dose: 5,000 units Piperacillin Sod/Tazobactam (Sod 3.375 gm/ Sodium Chloride) 100 mls @ 200 mls/hr IVPB Q8H ANIYAH; Protocol Last Admin: 04/23/18 05:59 Dose: 200 mls/hr Ceftriaxone Sodium 2 gm/ (Sodium Chloride) 100 mls @ 100 mls/hr IVPB Q24H ANIYAH; Protocol Last Admin: 04/22/18 22:19 Dose: 100 mls/hr Dexmedetomidine HCl 200 mcg/ (Sodium Chloride) 50 mls @ 2.45 mls/hr IV TITR PRN; Protocol PRN Reason: Sedation Last Admin: 04/23/18 11:53 Dose: 0.5 mcg/kg/hr, 6.12 mls/hr Midodrine (Proamatine) 2.5 mg PO Q8 [facility] Last Admin: 04/23/18 05:56 Dose: 2.5 mg Pantoprazole Sodium (Protonix Ec Tab) 40 mg PO DAILY [facility] Last Admin: 04/23/18 09:53 Dose: 40 mg Tamsulosin HCl (Flomax) 0.4 mg PO DAILY [facility] Last Admin: 04/23/18 09:53 Dose: 0.4 mg - Labs Labs: 04/22/18 04:00 04/22/18 05:41 PT 12.2 SECONDS (9.7-12.2) 04/17/18 07:07 INR 1.1 04/17/18 07:07 APTT 29 SECONDS (21-34) 04/17/18 07:07 - Head Exam Head Exam: ATRAUMATIC, NORMOCEPHALIC - Eye Exam Additional comments: Artificial L eye. R pupil sluggish pupilary to light. - ENT Exam Additional comments: ET tube in place. - Respiratory Exam Respiratory Exam: Wheezes (wheezing L base, otherwise clear). absent: Rales, Rhonchi - Cardiovascular Exam Cardiovascular Exam: Tachycardia, +S1, +S2 - GI/Abdominal Exam GI & Abdominal Exam: Soft. absent: Distended, Guarding, Rigid, Tenderness, Rebound - Extremities Exam Extremities Exam: absent: Pedal Edema, Tenderness Additional comments: prevalon boots bilaterally - Neurological Exam Additional comments: Pt intubated and sedated.
[2018-04-23 14:39] LABS: BASO % 0.5 % (0.0-2.0); LYMPH % 18.6 % (20.0-40.0); MEAN CELL VOLUME 90.3 fL (80.0-94.0); MEAN CORPUSCULAR HGB CONC 33.2 g/dL (33.0-37.0); MEAN PLATELET VOLUME 9.6 fL (7.2-11.7); MONO # 0.1 K/uL (0.0-0.8); MONO % 2.7 % (0.0-10.0); NEUT # 4.3 K/uL (1.8-7.0); NEUT % 78.2 % (50.0-75.0); NRBC % 0.2 % (0.0-2.0); RBC 2.68 Mil/uL (4.40-5.90); WHITE BLOOD COUNT 5.5 K/uL (4.8-10.8)
--- NOTE | 2018-04-23 14:57 | PCM.PROC ---
Procedures Attestation:: I certify that I have explained the specified Operation(s) or Procedure(s), risks, benefits and reasonable alternatives to the Patient and/or other person responsible. The opportunity was given to ask questions and all questions answered - Central Line Placement Right Subclavian Triple Lumen Catheter Aseptic technique was employed throughout the procedure: Hand Hygiene done prior to procedure, Full sterile barriers (mask, hair cover, sterile gown, sterile gloves), Full body sterile drape, Chloraprep Antiseptic: 30 second prep for IJ or SC sites CVP Time Out Performed: Yes Pt. Placed on Pulse Ox Monitor: Yes Central Line Prep: Chlorhexidine-Alcohol Combination Ultrasound Used for Placement: No Central Line Lumen Inserted: triple Central Line Length: 16 cm Post Procedure: Sutured in Place, Good Blood Return, All Ports Aspirated, Flushed, Capped, Sterile Dressing Applied Secured by: Securement device Post procedure dressing: Gauze, Clear vapor permeable, Chlorhexidine disc (Biopatch) Post Procedure X-Ray: Yes Patient Tolerated Procedure: Well Immediate Complications: None
--- NOTE | 2018-04-23 15:17 | CP.CCUPN ---
<Natali Troncoso L - Last Filed: 04/23/18 16:25> CCU Subjective - Physician Review Subjective (Free Text): Resident Progress Note for Dr. Alarcon Patient examined at bedside. Patient is s/p intubation after being short of breath. Patient had bradycardia after bronchoscopy and so ACLS protocol was initiated with ROSC. Patient is sedated and unresponsive. Critical Care Time Spent (in minutes): 35 CCU Objective - Vital Signs / Intake & Output Vital Signs (Last 4 hours): Vital Signs Temp Pulse Resp BP Pulse Ox 04/23/18 14:39 102/47 L 04/23/18 13:13 104 H 25 H 83/32 L 100 04/23/18 13:11 107 H 20 81/28 L 100 04/23/18 13:09 104 H 14 79/27 L 100 04/23/18 13:06 107 H 15 81/28 L 100 04/23/18 13:00 103 H 15 100 04/23/18 12:05 128 H 14 122/29 L 100 04/23/18 12:00 99.6 F 122 H 19 100 Intake and Output (Last 8hrs): Intake & Output 04/23/18 04/23/18 04/23/18 06:59 14:59 22:59 Intake Total 500 Output Total 170 50 Balance 330 -50 Weight 108 lb Intake: Intake, IV Amount 400 Right Forearm 400 Oral 100 Output: Chest Tube Drainage 170 50 Right anterior medial 50 chest Right posterior medial 120 50 chest Other: # Voids Urine, Voided 3 # Bowel Movements 1 - Physical Exam Head: Positive for: Atraumatic, Normocephalic Pupils: Positive for: PERRL Extroacular Muscles: Positive for: Other (left eyeball with upward gaze deviation, blind in left eye, but R eye visual simpson grossly intact) Conjunctiva: Positive for: Normal. Negative for: Injected, Icteric Mouth: Positive for: Moist Mucous Membranes. Negative for: Dry, Drooling Pharnyx: Positive for: Other (intubated) Nose (External): Positive for: Atraumatic Nose (Internal): Positive for: Normal Inspection Neck: Positive for: Trachea Midline. Negative for: Lymphadenopathy Respiratory/Chest: Positive for: Good Air Exchange, Wheezes, Other (chest tubes bilaterally). Negative for: Respiratory Distress Cardiovascular: Positive for: Regular Rate and Rhythm, Normal S1, S2, Tachycardic. Negative for: Irregular Rhythm Abdomen: Positive for: Normal Bowel Sounds. Negative for: Distention, Rebound, Guarding, Mass/Organomegaly Upper Extremity: Positive for: Normal Inspection, NORMAL PULSES. Negative for: Cyanosis, Edema Lower Extremity: Positive for: Normal Inspection, NORMAL PULSES. Negative for: Edema, CALF TENDERNESS, Tenderness, Swelling Neurological: Positive for: Other (unresponsive) Skin: Positive for: Warm, Dry, Normal Color. Negative for: Rashes - Medications Active Medications: Active Medications Generic Name Dose Route Start Last Admin Trade Name Freq PRN Reason Stop Dose Admin Acetaminophen 650 mg 03/19/18 12:00 04/21/18 02:03 Tylenol 325mg Tab PO 650 mg Q4 PRN Administration Pain, Mild (1-3) Acetylcysteine 4 ml 04/18/18 12:30 04/23/18 13:24 Acetylcysteine 20% INH Not Given RQ6 ANIYAH Benzocaine/Menthol 1 keely 04/18/18 08:08 Cepacol Sore Throat MT Q2 PRN Sore Throat Heparin Sodium (Porcine) 5,000 units 04/20/18 22:00 04/23/18 09:53 Heparin SC 5,000 units Q12 ANIYAH Administration Piperacillin Sod/Tazobactam 100 mls @ 200 mls/hr 04/22/18 15:00 04/23/18 05:59 Sod 3.375 gm/ Sodium Chloride IVPB 200 mls/hr Q8H ANIYAH Administration Protocol Dexmedetomidine HCl 200 mcg/ 50 mls @ 2.45 mls/hr 04/23/18 11:25 04/23/18 11:53 Sodium Chloride IV 0.5 mcg/kg/hr TITR PRN 6.12 mls/hr Sedation Administration Protocol 0.2 MCG/KG/HR Norepinephrine Bitartrate 4 mg 254 mls @ 15.24 mls/hr 04/23/18 15:05 / Sodium Chloride IV .[id number] PRN TITRATE PER MD ORDER Protocol 4 MCG/MIN Midodrine 2.5 mg 04/18/18 09:15 04/23/18 05:56 Proamatine PO 2.5 mg Q8 ANIYAH Administration Pantoprazole Sodium 40 mg 04/11/18 10:00 04/23/18 09:53 Protonix Ec Tab PO 40 mg DAILY ANIYAH Administration Tamsulosin HCl 0.4 mg 04/19/18 10:00 04/23/18 09:53 Flomax PO 0.4 mg DAILY ANIYAH Administration - Patient Studies Lab Studies: Lab Studies 04/23/18 04/23/18 04/23/18 Range/Units 14:31 14:09 04:38 WBC 5.5 (4.8-10.8) K/uL RBC 2.68 L (4.40-5.90) Mil/uL Hgb 8.0 L (12.0-18.0) g/dL Hct 24.2 L (35.0-51.0) % MCV 90.3 (80.0-94.0) fL MCH 30.0 (27.0-31.0) pg MCHC 33.2 (33.0-37.0) g/dL RDW 19.0 H (11.5-14.5) % Plt Count 156 (130-400) K/uL MPV 9.6 (7.2-11.7) fL Neut % (Auto) 78.2 H (50.0-75.0) % Lymph % (Auto) 18.6 L (20.0-40.0) % [place] % (Auto) 2.7 (0.0-10.0) % Eos % (Auto) 0.0 (0.0-4.0) % Baso % (Auto) 0.5 (0.0-2.0) % Neut # (Auto) 4.3 (1.8-7.0) K/uL Lymph # (Auto) 1.0 (1.0-4.3) K/uL [place] # (Auto) 0.1 (0.0-0.8) K/uL Eos # (Auto) 0.0 (0.0-0.7) K/uL Baso # (Auto) 0.0 (0.0-0.2) K/uL pO2 14 L (30-55) mm/Hg VBG pH 7.42 (7.32-7.43) VBG pCO2 39 L (40-60) mmHg VBG HCO3 23.4 mmol/L VBG Total CO2 26.5 (22-28) mmol/L VBG O2 Sat (Calc) 16.1 L (40-65) % VBG Base Excess 0.8 (0.0-2.0) mmol/L VBG Potassium 5.4 H (3.6-5.2) mmol/L Sodium 132.0 (132-148) mmol/l Chloride 103.0 (98-107) mmol/L Glucose 151 H (75-110) mg/dl Lactate 3.6 H (0.7-2.1) mmol/L FiO2 100.0 % Venous Blood Potassium 5.4 H (3.6-5.2) mmol/L Urine Osmolality 615 (300-1000) mosm/kg Ur Random Sodium < 5 mmol/L Laboratory Results - last 24 hr 04/23/18 04/23/18 04/23/18 04:38 14:09 14:31 WBC 5.5 RBC 2.68 L Hgb 8.0 L Hct 24.2 L MCV 90.3 MCH 30.0 MCHC 33.2 RDW 19.0 H Plt Count 156 MPV 9.6 Neut % (Auto) 78.2 H Lymph % (Auto) 18.6 L [place] % (Auto) 2.7 Eos % (Auto) 0.0 Baso % (Auto) 0.5 Neut # (Auto) 4.3 Lymph # (Auto) 1.0 [place] # (Auto) 0.1 Eos # (Auto) 0.0 Baso # (Auto) 0.0 pO2 14 L VBG pH 7.42 VBG pCO2 39 L VBG HCO3 23.4 VBG Total CO2 26.5 VBG O2 Sat (Calc) 16.1 L VBG Base Excess 0.8 VBG Potassium 5.4 H Sodium 132.0 Chloride 103.0 Glucose 151 H Lactate 3.6 H FiO2 100.0 Venous Blood Potassium 5.4 H Urine Osmolality 615 Ur Random Sodium < 5 Fingerstick Blood Sugar Results: 117 Review of Systems - Review of Systems Systems not reviewed;Unavailable: Intubated Critical Care Progress Note - Extremities/Vascular Does the Patient have a Central Venous Catheter?: Yes Insertion Site: Subclavian Vein - Nutrition Nutrition: Nutrition Category Date Time Status Heart Healthy Diet [DIET] Diets 04/17/18 Dinner Active Assessment/Plan - Assessment and Plan (Free Text) Plan: 67 yo M with PMH of 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 S/p right-sided thoracentesis, 1.5L removed, and L sided thoracentesis, 860ml removed. Repeat CT scan showed re-accumulated bilateral pleural effusions. S/p bilateral pigtail chest tubes. S/p intubation. Neuro: - Sedated on precedex Pulm: - Drainage of chest tubes: L -120ml and R - 165ml in last 24 hrs. Once drainage is <100ml in 24 hours will plan to d/c the pigtail chest tubes. - s/p bilateral pigtail chest tube insertion by IR, continuing to drain - Consulted cardiothoracic for recs; no intervention at this time - septic work up neg for mycoplasma and Leigonella - maintain SaO2 > 92% - s/p intubation Cardio: - Given strep bacteremia and aortic valve thickening on Echo, Cardiology consulted for possible АЛЕКСАНДР to r/o any aortic vegetations; continue Rocephin - maintaining MAP > 65 - Echo 03/21: EF 41%, grade-1 abnormal relaxation patter on transmitral doppler, severely thickened aortic valve, cannot exclude aortic valve vegitation - Increasing trop from 03/20-03/21, concerning for NSTEMI; not currently on AC due to concern for bleeding - Bradycardic s/p bronchoscopy, ACLS protocol initiated. GI: - daily protonix for GI ppx - GI signed off, recs radiation course as planned with Rad-onc Renal: - monitor I and O - replete electrolytes as needed Heme: - Monitor H/H - No AC at this time due to concern for bleeding and given rectal bleeding on pr esentation; SCDs for DVT ppx - Heme-onc following; continue radiation therapy, can start Xeloda as outpatient ID: - Afebrile, no leukocytosis - blood cultures positive x2 for Strep Viridans bacteremia - ID following, appreciate all recs; needs АЛЕКСАНДР once more medically stable - Zosyn 3.375 gm IV q8h Endo: - maintain euglycemia GI/DVT ppx Case and plan was reviewed and discussed with attending, Dr. Alarcon. - Date & Time Date: 04/23/18 Time: 15:21 <Nael Alarcon - Last Filed: 04/23/18 17:24> CCU Subjective - Physician Review Critical Care Time Spent (in minutes): 60 CCU Objective - Vital Signs / Intake & Output Vital Signs (Last 4 hours): Vital Signs Temp BP 04/23/18 16:00 98 F 04/23/18 14:39 102/47 L Intake and Output (Last 8hrs): Intake & Output 04/23/18 04/23/18 04/23/18 06:59 14:59 22:59 Intake Total 500 Output Total 170 50 Balance 330 -50 Weight 108 lb Intake: Intake, IV Amount 400 Right Forearm 400 Oral 100 Output: Chest Tube Drainage 170 50 Right anterior medial 50 chest Right posterior medial 120 50 chest Other: # Voids Urine, Voided 3 # Bowel Movements 1 - Medications Active Medications: Active Medications Generic Name Dose Route Start Last Admin Trade Name Freq PRN Reason Stop Dose Admin Acetaminophen 650 mg 03/19/18 12:00 04/21/18 02:03 Tylenol 325mg Tab PO 650 mg Q4 PRN Administration Pain, Mild (1-3) Acetylcysteine 4 ml 04/18/18 12:30 04/23/18 13:24 Acetylcysteine 20% INH Not Given RQ6 ANIYAH Benzocaine/Menthol 1 keely 04/18/18 08:08 Cepacol Sore Throat MT Q2 PRN Sore Throat Heparin Sodium (Porcine) 5,000 units 04/20/18 22:00 04/23/18 09:53 Heparin SC 5,000 units Q12 ANIYAH Administration Piperacillin Sod/Tazobactam 100 mls @ 200 mls/hr 04/22/18 15:00 04/23/18 15:49 Sod 3.375 gm/ Sodium Chloride IVPB 200 mls/hr Q8H ANIYAH Administration Protocol Dexmedetomidine HCl 200 mcg/ 50 mls @ 2.45 mls/hr 04/23/18 11:25 04/23/18 11:53 Sodium Chloride IV 0.5 mcg/kg/hr TITR PRN 6.12 mls/hr Sedation Administration Protocol 0.2 MCG/KG/HR Norepinephrine Bitartrate 4 mg 254 mls @ 15.24 mls/hr 04/23/18 15:05 / Sodium Chloride IV .[id number] PRN TITRATE PER MD ORDER Protocol 4 MCG/MIN Midodrine 2.5 mg 04/18/18 09:15 04/23/18 15:41 Proamatine PO Not Given Q8 ANIYAH Pantoprazole Sodium 40 mg 04/11/18 10:00 04/23/18 09:53 Protonix Ec Tab PO 40 mg DAILY ANIYAH Administration Tamsulosin HCl 0.4 mg 04/19/18 10:00 04/23/18 09:53 Flomax PO 0.4 mg DAILY ANIYAH Administration - Patient Studies Lab Studies: Lab Studies 04/23/18 04/23/18 04/23/18 Range/Units 16:23 14:31 14:31 WBC 5.5 (4.8-10.8) K/uL RBC 2.68 L (4.40-5.90) Mil/uL Hgb 8.0 L (12.0-18.0) g/dL Hct 24.2 L (35.0-51.0) % MCV 90.3 (80.0-94.0) fL MCH 30.0 (27.0-31.0) pg MCHC 33.2 (33.0-37.0) g/dL RDW 19.0 H (11.5-14.5) % Plt Count 156 (130-400) K/uL MPV 9.6 (7.2-11.7) fL Neut % (Auto) 78.2 H (50.0-75.0) % Lymph % (Auto) 18.6 L (20.0-40.0) % [place] % (Auto) 2.7 (0.0-10.0) % Eos % (Auto) 0.0 (0.0-4.0) % Baso % (Auto) 0.5 (0.0-2.0) % Neut # (Auto) 4.3 (1.8-7.0) K/uL Lymph # (Auto) 1.0 (1.0-4.3) K/uL [place] # (Auto) 0.1 (0.0-0.8) K/uL Eos # (Auto) 0.0 (0.0-0.7) K/uL Baso # (Auto) 0.0 (0.0-0.2) K/uL pO2 (30-55) mm/Hg VBG pH (7.32-7.43) VBG pCO2 (40-60) mmHg VBG HCO3 mmol/L VBG Total CO2 (22-28) mmol/L VBG O2 Sat (Calc) (40-65) % VBG Base Excess (0.0-2.0) mmol/L VBG Potassium (3.6-5.2) mmol/L Sodium 133 (132-148) mmol/l Chloride 99 (98-107) mmol/L Glucose (75-110) mg/dl Lactate (0.7-2.1) mmol/L FiO2 % Potassium 6.3 H* D (3.6-5.2) mmol/L Carbon Dioxide 16 L (22-30) mmol/L Anion Gap 25 H (10-20) BUN 40 H (9-20) mg/dL Creatinine 1.5 (0.8-1.5) mg/dL Est GFR ( Amer) 56 Est GFR (Non-Af Amer) 46 Random Glucose 224 H (75-110) mg/dL Calcium 8.2 L (8.6-10.4) mg/dl Phosphorus 5.9 H (2.5-4.5) mg/dL Magnesium 2.8 H (1.6-2.3) mg/dL Total Bilirubin 0.6 (0.2-1.3) mg/dL AST 21 (17-59) U/L ALT 21 D (21-72) U/L Alkaline Phosphatase 62 (38-126) U/L Total Creatine Kinase 23 L (55-170) U/L CK-MB (Mass) 1.80 (0.0-3.38) ng/mL Troponin I 0.5420 H* (0.00-0.120) ng/mL Total Protein 4.8 L (6.3-8.3) g/dL Albumin 2.3 L (3.5-5.0) g/dL Globulin 2.5 (2.2-3.9) gm/dL Albumin/Globulin Ratio 0.9 L (1.0-2.1) Venous Blood Potassium (3.6-5.2) mmol/L Urine Color Yellow (YELLOW) Urine Clarity Clear (Clear) Urine pH 7.0 (5.0-8.0) Ur Specific [place] 1.009 (1.003-1.030) Urine Protein Negative (NEGATIVE) mg/dL Urine Glucose (UA) Normal (Normal) mg/dL Urine Ketones Negative (NEGATIVE) mg/dL Urine Blood 3+ H (NEGATIVE) Urine Nitrate Negative (NEGATIVE) Urine Bilirubin Negative (NEGATIVE) Urine Urobilinogen Normal (0.2-1.0) mg/dL Ur Leukocyte Esterase Neg (Negative) [place]/uL Urine WBC (Auto) 2 (0-5) /hpf Urine RBC (Auto) 10 H (0-3) /hpf Ur Squamous Epith Cells < 1 (0-5) /hpf Urine Bacteria Rare (<OCC) Urine Osmolality (300-1000) mosm/kg Ur Random Sodium mmol/L 04/23/18 04/23/18 Range/Units 14:09 04:38 WBC (4.8-10.8) K/uL RBC (4.40-5.90) Mil/uL Hgb (12.0-18.0) g/dL Hct (35.0-51.0) % MCV (80.0-94.0) fL MCH (27.0-31.0) pg MCHC (33.0-37.0) g/dL RDW (11.5-14.5) % Plt Count (130-400) K/uL MPV (7.2-11.7) fL Neut % (Auto) (50.0-75.0) % Lymph % (Auto) (20.0-40.0) % [place] % (Auto) (0.0-10.0) % Eos % (Auto) (0.0-4.0) % Baso % (Auto) (0.0-2.0) % Neut # (Auto) (1.8-7.0) K/uL Lymph # (Auto) (1.0-4.3) K/uL [place] # (Auto) (0.0-0.8) K/uL Eos # (Auto) (0.0-0.7) K/uL Baso # (Auto) (0.0-0.2) K/uL pO2 14 L (30-55) mm/Hg VBG pH 7.42 (7.32-7.43) VBG pCO2 39 L (40-60) mmHg VBG HCO3 23.4 mmol/L VBG Total CO2 26.5 (22-28) mmol/L VBG O2 Sat (Calc) 16.1 L (40-65) % VBG Base Excess 0.8 (0.0-2.0) mmol/L VBG Potassium 5.4 H (3.6-5.2) mmol/L Sodium 132.0 (132-148) mmol/l Chloride 103.0 (98-107) mmol/L Glucose 151 H (75-110) mg/dl Lactate 3.6 H (0.7-2.1) mmol/L FiO2 100.0 % Potassium (3.6-5.2) mmol/L Carbon Dioxide (22-30) mmol/L Anion Gap (10-20) BUN (9-20) mg/dL Creatinine (0.8-1.5) mg/dL Est GFR ( Amer) Est GFR (Non-Af Amer) Random Glucose (75-110) mg/dL Calcium (8.6-10.4) mg/dl Phosphorus (2.5-4.5) mg/dL Magnesium (1.6-2.3) mg/dL Total Bilirubin (0.2-1.3) mg/dL AST (17-59) U/L ALT (21-72) U/L Alkaline Phosphatase (38-126) U/L Total Creatine Kinase (55-170) U/L CK-MB (Mass) (0.0-3.38) ng/mL Troponin I (0.00-0.120) ng/mL Total Protein (6.3-8.3) g/dL Albumin (3.5-5.0) g/dL Globulin (2.2-3.9) gm/dL Albumin/Globulin Ratio (1.0-2.1) Venous Blood Potassium 5.4 H (3.6-5.2) mmol/L Urine Color (YELLOW) Urine Clarity (Clear) Urine pH (5.0-8.0) Ur Specific [place] (1.003-1.030) Urine Protein (NEGATIVE) mg/dL Urine Glucose (UA) (Normal) mg/dL Urine Ketones (NEGATIVE) mg/dL Urine Blood (NEGATIVE) Urine Nitrate (NEGATIVE) Urine Bilirubin (NEGATIVE) Urine Urobilinogen (0.2-1.0) mg/dL Ur Leukocyte Esterase (Negative) [place]/uL Urine WBC (Auto) (0-5) /hpf Urine RBC (Auto) (0-3) /hpf Ur Squamous Epith Cells (0-5) /hpf Urine Bacteria (<OCC) Urine Osmolality 615 (300-1000) mosm/kg Ur Random Sodium < 5 mmol/L Laboratory Results - last 24 hr 04/23/18 04/23/18 04/23/18 04:38 14:09 14:31 WBC 5.5 RBC 2.68 L Hgb 8.0 L Hct 24.2 L MCV 90.3 MCH 30.0 MCHC 33.2 RDW 19.0 H Plt Count 156 MPV 9.6 Neut % (Auto) 78.2 H Lymph % (Auto) 18.6 L [place] % (Auto) 2.7 Eos % (Auto) 0.0 Baso % (Auto) 0.5 Neut # (Auto) 4.3 Lymph # (Auto) 1.0 [place] # (Auto) 0.1 Eos # (Auto) 0.0 Baso # (Auto) 0.0 pO2 14 L VBG pH 7.42 VBG pCO2 39 L VBG HCO3 23.4 VBG Total CO2 26.5 VBG O2 Sat (Calc) 16.1 L VBG Base Excess 0.8 VBG Potassium 5.4 H Sodium 132.0 Chloride 103.0 Glucose 151 H Lactate 3.6 H FiO2 100.0 Potassium Carbon Dioxide Anion Gap BUN Creatinine Est GFR ( Amer) Est GFR (Non-Af Amer) Random Glucose Calcium Phosphorus Magnesium Total Bilirubin AST ALT Alkaline Phosphatase Total Creatine Kinase CK-MB (Mass) Troponin I Total Protein Albumin Globulin Albumin/Globulin Ratio Venous Blood Potassium 5.4 H Urine Color Urine Clarity Urine pH Ur Specific [place] Urine Protein Urine Glucose (UA) Urine Ketones Urine Blood Urine Nitrate Urine Bilirubin Urine Urobilinogen Ur Leukocyte Esterase Urine WBC (Auto) Urine RBC (Auto) Ur Squamous Epith Cells Urine Bacteria Urine Osmolality 615 Ur Random Sodium < 5 04/23/18 04/23/18 14:31 16:23 WBC RBC Hgb Hct MCV MCH MCHC RDW Plt Count MPV Neut % (Auto) Lymph % (Auto) [place] % (Auto) Eos % (Auto) Baso % (Auto) Neut # (Auto) Lymph # (Auto) [place] # (Auto) Eos # (Auto) Baso # (Auto) pO2 VBG pH VBG pCO2 VBG HCO3 VBG Total CO2 VBG O2 Sat (Calc) VBG Base Excess VBG Potassium Sodium 133 Chloride 99 Glucose Lactate FiO2 Potassium 6.3 H* D Carbon Dioxide 16 L Anion Gap 25 H BUN 40 H Creatinine 1.5 Est GFR ( Amer) 56 Est GFR (Non-Af Amer) 46 Random Glucose 224 H Calcium 8.2 L Phosphorus 5.9 H Magnesium 2.8 H Total Bilirubin 0.6 AST 21 ALT 21 D Alkaline Phosphatase 62 Total Creatine Kinase 23 L CK-MB (Mass) 1.80 Troponin I 0.5420 H* Total Protein 4.8 L Albumin 2.3 L Globulin 2.5 Albumin/Globulin Ratio 0.9 L Venous Blood Potassium Urine Color Yellow Urine Clarity Clear Urine pH 7.0 Ur Specific [place] 1.009 Urine Protein Negative Urine Glucose (UA) Normal Urine Ketones Negative Urine Blood 3+ H Urine Nitrate Negative Urine Bilirubin Negative Urine Urobilinogen Normal Ur Leukocyte Esterase Neg Urine WBC (Auto) 2 Urine RBC (Auto) 10 H Ur Squamous Epith Cells < 1 Urine Bacteria Rare Urine Osmolality Ur Random Sodium Critical Care Progress Note - Nutrition Nutrition: Nutrition Category Date Time Status Heart Healthy Diet [DIET] Diets 04/17/18 Dinner Active Assessment/Plan (1) Bilateral pleural effusion Current Visit: Yes Status: Acute (2) Lung nodule < 6cm on CT Current Visit: Yes Status: Acute Attending/Attestation - Attestation I have personally seen and examined this patient.: Yes I have fully participated in the care of the patient.: Yes I have reviewed all pertinent clinical information: Yes Notes (Text): 04/23/18 17:18 patient seen and examined Patient was intubated in the morning for shortness of breath and lethargy with a brief episode of bradycardia. Post bronchoscopy patient developed bradycardia and briefly lost pulse, CPR started with regain of pulses she was started on Levophed for hypotension Ventilatory support Continue IV antibiotics Case discussed with family at length
[2018-04-23 15:33] LABS: ALB/GLOB RATIO 0.9 (1.0-2.1); ALBUMIN 2.3 g/dL (3.5-5.0); CALCIUM 8.2 mg/dl (8.6-10.4); CK-MB 1.8 ng/mL (0.0-3.38); TROPONIN I 0.542 ng/mL (0.00-0.120)
[2018-04-23] MEDS ORDERED: Calcium Gluconate 4.65 mEq/10 ml Inj IVP ONE (15:36)
[2018-04-23] MEDS ORDERED: Sodium Bicarbonate (8.4%) 50 Meq Syringe IVP ONE (15:38)
[2018-04-23] MEDS ORDERED: Sodium Bicarbonate (8.4%) 50 Meq Syringe ONE (15:40)
--- NOTE | 2018-04-23 16:07 | RAD ---
Date of service: 04/23/2018 HISTORY: intubated COMPARISON: April 23, 2018. Multiple serial examinations preceding the most recent study: FINDINGS: LUNGS: Stable pulmonary vascular congestion. PLEURA: Stable position of 2 chest tubes in the right pleural space. No visible pneumothorax. CARDIOVASCULAR: Normal. OSSEOUS STRUCTURES: No significant abnormalities. VISUALIZED UPPER ABDOMEN: Normal. OTHER FINDINGS: Stable satisfactory position of endotracheal tube and nasogastric tube. IMPRESSION: No significant interval change compared to the prior examination(s). Stable in satisfactory position of ventilatory, nasogastric apparatus and 2 chest tubes in the right pleural space.
[2018-04-23 16:34] LABS: SQUAMOUS EPITHIAL < 1 /hpf (0-5); URINE BACTERIA RARE (<OCC); URINE BILIRUBIN NEGATIVE (NEGATIVE); URINE BLOOD 3+ (NEGATIVE); URINE CLARITY Clear (Clear); URINE COLOR Yellow (YELLOW); URINE GLUCOSE (UA) NORMAL (Normal); URINE LEUKOCYTE ESTERASE NEG Leu/uL (Negative); URINE PROTEIN NEGATIVE (NEGATIVE); URINE UROBILINOGEN NORMAL mg/dL (0.2-1.0)
--- NOTE | 2018-04-23 17:26 | PCM.PROC ---
Procedures Attestation:: I certify that I have explained the specified Operation(s) or Procedure(s), risks, benefits and reasonable alternatives to the Patient and/or other person responsible. The opportunity was given to ask questions and all questions answered - Intubation Time Out Performed: Yes Sedative: Etomidate Mg Given: 20 Laryngoscope: Trinity ET Tube Size: 8.0 ET Tube Uncuffed: No ET Tube Secured at Depth: 21 ET Tube Secured Locarion: Lips ET Tube Placement Confirmation: Visualized Passing Through Cords, Breath Sounds Equal Bilaterally, No Breath Sounds Over Epigastrum, Confirmation w/Capnometry Patient Tolerated Procedure: Well Procedure Immediate Complications: None
[2018-04-23 18:06] LABS: ABG ALLEN TEST UNABLE; ARTERIAL BLOOD GAS HCO3 30.4 mmol/L (21-28); ARTERIAL BLOOD GAS O2 SAT 99.8 % (95-98); ARTERIAL BLOOD GAS PCO2 19 mm/Hg (35-45); ARTERIAL BLOOD GAS PH 7.72 (7.35-7.45); ARTERIAL BLOOD GAS PO2 362 mm/Hg (80-100); ARTERIAL BLOOD GAS TCO2 25.2 mmol/L (22-28)
[2018-04-23 19:02] LABS: ABG ALLEN TEST UNABLE; ARTERIAL BLOOD GAS HCO3 26.4 mmol/L (21-28); ARTERIAL BLOOD GAS O2 SAT 99.2 % (95-98); ARTERIAL BLOOD GAS PCO2 19 mm/Hg (35-45); ARTERIAL BLOOD GAS PH 7.64 (7.35-7.45); ARTERIAL BLOOD GAS PO2 214 mm/Hg (80-100); ARTERIAL BLOOD GAS TCO2 21.1 mmol/L (22-28)
[2018-04-23 22:20] LABS: ABG ALLEN TEST UNABLE; ARTERIAL BLOOD GAS HCO3 29.6 mmol/L (21-28); ARTERIAL BLOOD GAS HEMOGLOBIN 7.2 g/dL (11.7-17.4); ARTERIAL BLOOD GAS O2 SAT 98.9 % (95-98); ARTERIAL BLOOD GAS PCO2 30 mm/Hg (35-45); ARTERIAL BLOOD GAS PH 7.58 (7.35-7.45); ARTERIAL BLOOD GAS PO2 162 mm/Hg (80-100)
[2018-04-23] MEDS ORDERED: Sodium Chloride 0.9% 1,000 ML IV ONE (23:05)
--- NOTE | 2018-04-23 23:44 | CP.PCM.PN ---
Subjective - Date & Time of Evaluation Date of Evaluation: 04/23/18 Time of Evaluation: 19:30 - Subjective Subjective: Events early this AM acknowledged. Patient now intubated, unresponsive. Discussed patient's poor condition with his and daughter who are at his bedside. Objective - Vital Signs/Intake and Output Vital Signs (last 24 hours): Temp Pulse Resp BP Pulse Ox 99.2 F 88 22 83/36 L 100 04/23/18 20:00 04/23/18 23:30 04/23/18 23:30 04/23/18 23:30 04/23/18 23:30 Intake and Output: 04/23/18 04/24/18 18:59 06:59 Intake Total 1521.2 Output Total 160 190 Balance -160 1331.2 - Medications Medications: Current Medications Acetaminophen (Tylenol 325mg Tab) 650 mg PO Q4 PRN PRN Reason: Pain, Mild (1-3) Last Admin: 04/21/18 02:03 Dose: 650 mg Acetylcysteine (Acetylcysteine 20%) 4 ml INH RQ6 ANIYAH Last Admin: 04/23/18 20:14 Dose: Not Given Albuterol/Ipratropium (Duoneb 3 Mg/0.5 Mg (3 Ml) Ud) 3 ml INH RQ4 ANIYAH Benzocaine/Menthol (Cepacol Sore Throat) 1 keely MT Q2 PRN PRN Reason: Sore Throat Heparin Sodium (Porcine) (Heparin) 5,000 units SC Q12 ANIYAH Last Admin: 04/23/18 22:00 Dose: 5,000 units Piperacillin Sod/Tazobactam (Sod 3.375 gm/ Sodium Chloride) 100 mls @ 200 mls/hr IVPB Q8H ANIYAH; Protocol Last Admin: 04/23/18 22:10 Dose: 200 mls/hr Dexmedetomidine HCl 200 mcg/ (Sodium Chloride) 50 mls @ 2.45 mls/hr IV TITR PRN; Protocol PRN Reason: Sedation Last Admin: 04/23/18 22:05 Dose: 1 mcg/kg/hr, 12.25 mls/hr Norepinephrine Bitartrate 4 mg (/ Sodium Chloride) 254 mls @ 15.24 mls/hr IV .[id number] PRN; Protocol PRN Reason: TITRATE PER MD ORDER Last Titration: 04/23/18 23:00 Dose: 10 mcg/min, 38.1 mls/hr Sodium Chloride (Sodium Chloride 0.9%) 1,000 mls @ 1,000 mls/hr IV .Q1H ONE Stop: 04/24/18 00:04 Last Admin: 04/23/18 23:05 Dose: 1,000 mls/hr Midodrine (Proamatine) 2.5 mg PO Q8 [facility] Last Admin: 04/23/18 22:00 Dose: 2.5 mg Pantoprazole Sodium (Protonix Ec Tab) 40 mg PO DAILY [facility] Last Admin: 04/23/18 09:53 Dose: 40 mg Tamsulosin HCl (Flomax) 0.4 mg PO DAILY [facility] Last Admin: 04/23/18 09:53 Dose: 0.4 mg - Labs Labs: 04/23/18 14:31 04/23/18 14:31 PT 12.2 SECONDS (9.7-12.2) 04/17/18 07:07 INR 1.1 04/17/18 07:07 APTT 29 SECONDS (21-34) 04/17/18 07:07 - Constitutional Appears: Cachectic, Chronically Ill, Other - ENT Exam ENT Exam: Normal Exam - Neck Exam Neck Exam: Normal Inspection - Respiratory Exam Respiratory Exam: Rhonchi Additional comments: Right chest tubes drainage slowed down. Left pigtail chest tube in place. - Cardiovascular Exam Cardiovascular Exam: Tachycardia, REGULAR RHYTHM - GI/Abdominal Exam GI & Abdominal Exam: Soft, Normal Bowel Sounds - Extremities Exam Extremities Exam: Normal Capillary Refill, Normal Inspection - Back Exam Back Exam: NORMAL INSPECTION - Neurological Exam Additional comments: Patient intubated and unresponsive. - Skin Skin Exam: Dry, Normal Color, Warm Assessment and Plan (1) Lower GI bleeding Status: Resolved (2) Anemia Status: Acute (3) Pneumonia Assessment & Plan: On Zosyn. Status: Resolved (4) Hyperkalemia Status: Resolved (5) Hyponatremia Status: Acute (6) Acute diastolic (congestive) heart failure Status: Resolved (7) Acute bacterial endocarditis Status: Acute (8) Acute non-ST elevation myocardial infarction (NSTEMI) Status: Acute (9) Bilateral pleural effusion Assessment & Plan: On Zosyn now. Status: Acute (10) Acute respiratory failure Assessment & Plan: Now on respirator. Status: Acute
[2018-04-24] MEDS: Albuterol-Ipratrop 3 mg / 0.5 (3 ml) UD INH SCH ×5 (00:47→16:20)
[2018-04-24] MEDS: Dexmedetomidine Hydrochloride 200 MCG in Sodium Chloride 0.9% 48 ML IV PRN ×2 (04:15→09:01)
[2018-04-24] MEDS: Acetylcysteine 20% Inhal Soln (4ml) INH SCH ×3 (04:47→14:21)
[2018-04-24 05:59] LABS: BASO % 0.3 % (0.0-2.0); HEMOGLOBIN 8.1 g/dL (12.0-18.0); LYMPH # 0.7 K/uL (1.0-4.3); LYMPH % 11.2 % (20.0-40.0); MEAN CELL VOLUME 89.7 fL (80.0-94.0); MEAN CORPUSCULAR HGB CONC 34.6 g/dL (33.0-37.0); MEAN PLATELET VOLUME 8.9 fL (7.2-11.7); MONO # 0.3 K/uL (0.0-0.8); MONO % 4.6 % (0.0-10.0); NEUT # 5.6 K/uL (1.8-7.0); NEUT % 83.9 % (50.0-75.0); NRBC % 0.2 % (0.0-2.0); RBC 2.6 Mil/uL (4.40-5.90); RED CELL DISTRIBUTION WIDTH 18.5 % (11.5-14.5); WHITE BLOOD COUNT 6.7 K/uL (4.8-10.8)
[2018-04-24] MEDS: Piperacillin/Tazobact 3.375 GM in Sodium Chloride 100 ML IVPB SCH ×2 (06:00→14:20)
[2018-04-24 06:01] LABS: ARTERIAL BLOOD GAS HCO3 26.1 mmol/L (21-28); ARTERIAL BLOOD GAS HEMOGLOBIN 7.3 g/dL (11.7-17.4); ARTERIAL BLOOD GAS O2 SAT 100.2 % (95-98); ARTERIAL BLOOD GAS PCO2 27 mm/Hg (35-45); ARTERIAL BLOOD GAS PH 7.55 (7.35-7.45); ARTERIAL BLOOD GAS PO2 207 mm/Hg (80-100); ARTERIAL BLOOD GAS TCO2 24.4 mmol/L (22-28)
--- NOTE | 2018-04-24 06:02 | OP ---
PROCEDURE DATE: 04/23/2018 PROCEDURE: Fiberoptic bronchoscopy with bronchoalveolar lavage. After obtaining consent from the patient, explaining the risks and benefits and the indication which is bilateral pneumonia, bronchoscopy procedure was done. Bronchoscope was passed through the endotracheal tube into the trachea. The main spencer was sharp. First, the bronchoscope was passed into the right side, right main, right upper, right lower lobe; all appeared normal. No endobronchial lesion seen. Next, the bronchoscope was passed on the left side. The left upper appeared normal. Small amount of purulent secretions noted in the left main which were suctioned out. No endobronchial lesion seen. Post-bronchoscopy, the patient's heart rate lowered down. The patient was given epinephrine and a CPR was started as the patient lost pulses . The patient responded to the CPR with return of spontaneous circulation and pulses. No other complications. Nael Alarcon MD
[2018-04-24 06:26] LABS: ALB/GLOB RATIO 0.9 (1.0-2.1); ALBUMIN 2.4 g/dL (3.5-5.0)
--- NOTE | 2018-04-24 07:42 | CP.PCM.PN ---
Subjective - Date & Time of Evaluation Date of Evaluation: 04/24/18 Time of Evaluation: 07:40 - Subjective Subjective: Surgery Pt seen and examined. Pt had bronch yesterday. Desaturated, bradycardic. Pt coded. Intubated, sedated and on presser. Pt doesn't response to pain or verbal commands. Objective - Vital Signs/Intake and Output Vital Signs (last 24 hours): Temp Pulse Resp BP Pulse Ox 99.1 F 85 22 88/31 L 100 04/24/18 04:00 04/24/18 07:22 04/24/18 07:22 04/24/18 07:22 04/24/18 07:22 Intake and Output: 04/24/18 04/24/18 06:59 18:59 Intake Total 2534.3 50.0 Output Total 435 Balance 2099.3 50.0 - Medications Medications: Current Medications Acetaminophen (Tylenol 325mg Tab) 650 mg PO Q4 PRN PRN Reason: Pain, Mild (1-3) Last Admin: 04/21/18 02:03 Dose: 650 mg Acetylcysteine (Acetylcysteine 20%) 4 ml INH RQ6 ANIYAH Last Admin: 04/24/18 07:26 Dose: 4 ml Albuterol/Ipratropium (Duoneb 3 Mg/0.5 Mg (3 Ml) Ud) 3 ml INH RQ4 ANIYAH Last Admin: 04/24/18 07:26 Dose: 3 ml Benzocaine/Menthol (Cepacol Sore Throat) 1 keely MT Q2 PRN PRN Reason: Sore Throat Heparin Sodium (Porcine) (Heparin) 5,000 units SC Q12 ANIYAH Last Admin: 04/23/18 22:00 Dose: 5,000 units Piperacillin Sod/Tazobactam (Sod 3.375 gm/ Sodium Chloride) 100 mls @ 200 mls/hr IVPB Q8H ANIYAH; Protocol Last Admin: 04/24/18 06:00 Dose: 200 mls/hr Dexmedetomidine HCl 200 mcg/ (Sodium Chloride) 50 mls @ 2.45 mls/hr IV TITR PRN; Protocol PRN Reason: Sedation Last Admin: 04/24/18 04:15 Dose: 0.7 mcg/kg/hr, 8.57 mls/hr Norepinephrine Bitartrate 8 mg (/ Sodium Chloride) 500 mls @ 15 mls/hr IV .Q24H PRN; Protocol PRN Reason: TITRATE PER MD ORDER Midodrine (Proamatine) 2.5 mg PO Q8 [facility] Last Admin: 04/24/18 05:30 Dose: 2.5 mg Pantoprazole Sodium (Protonix Ec Tab) 40 mg PO DAILY [facility] Last Admin: 04/23/18 09:53 Dose: 40 mg Tamsulosin HCl (Flomax) 0.4 mg PO DAILY [facility] Last Admin: 04/23/18 09:53 Dose: 0.4 mg - Labs Labs: 04/24/18 05:45 04/24/18 05:45 PT 12.2 SECONDS (9.7-12.2) 04/17/18 07:07 INR 1.1 04/17/18 07:07 APTT 29 SECONDS (21-34) 04/17/18 07:07 - Constitutional Appears: In Acute Distress, Cachectic, Chronically Ill - Head Exam Head Exam: ATRAUMATIC, NORMOCEPHALIC - ENT Exam Additional comments: Intubated - Neck Exam Neck Exam: Normal Inspection - Respiratory Exam Respiratory Exam: Respiratory Distress. absent: Chest Wall Tenderness Additional comments: INtubated. CP no leak. Ant 100cc ss/24. Post 50cc ss /24hrs - Cardiovascular Exam Cardiovascular Exam: Bradycardia - GI/Abdominal Exam GI & Abdominal Exam: Soft. absent: Distended, Tenderness - Neurological Exam Neurological Exam: absent: Alert, Awake - Skin Skin Exam: Dry, Intact, Normal Color, Warm Assessment and Plan - Assessment and Plan (Free Text) Assessment: 67M POD#7 Right thoracostomy tube insertion x 2 with pleurodesis now with hypotension , coded, intubated in ICU CT Chest with small anterior and posterior pneumothorax , RLL atelectasis CXR no pneumothorax noted. CT in good place. saturating at 100% on 100% FiO2 Plan: Monitor CT output CT to suction 10mmhg Daily CXR Monitor VS Further mgmt as per primary & ICU teams Will GUSTAVO Michel
--- NOTE | 2018-04-24 09:25 | CP.PCM.PN ---
Subjective - Date & Time of Evaluation Date of Evaluation: 04/24/18 Time of Evaluation: 09:23 - Subjective Subjective: events noted s/p FOB s/p desaturation event now unresponsive on vent, on levophed Na better post lasix labs acceptable poor px Objective - Vital Signs/Intake and Output Vital Signs (last 24 hours): Temp Pulse Resp BP Pulse Ox 97.9 F 84 20 91/31 L 100 04/24/18 08:00 04/24/18 09:00 04/24/18 09:00 04/24/18 09:00 04/24/18 09:00 Intake and Output: 04/24/18 04/24/18 06:59 18:59 Intake Total 2534.3 209.7 Output Total 435 80 Balance 2099.3 129.7 - Medications Medications: Current Medications Acetaminophen (Tylenol 325mg Tab) 650 mg PO Q4 PRN PRN Reason: Pain, Mild (1-3) Last Admin: 04/21/18 02:03 Dose: 650 mg Acetylcysteine (Acetylcysteine 20%) 4 ml INH RQ6 ANIYAH Last Admin: 04/24/18 07:26 Dose: 4 ml Albuterol/Ipratropium (Duoneb 3 Mg/0.5 Mg (3 Ml) Ud) 3 ml INH RQ4 ANIYAH Last Admin: 04/24/18 07:26 Dose: 3 ml Benzocaine/Menthol (Cepacol Sore Throat) 1 keely MT Q2 PRN PRN Reason: Sore Throat Heparin Sodium (Porcine) (Heparin) 5,000 units SC Q12 ANIYAH Last Admin: 04/23/18 22:00 Dose: 5,000 units Piperacillin Sod/Tazobactam (Sod 3.375 gm/ Sodium Chloride) 100 mls @ 200 mls/hr IVPB Q8H ANIYAH; Protocol Last Admin: 04/24/18 06:00 Dose: 200 mls/hr Dexmedetomidine HCl 200 mcg/ (Sodium Chloride) 50 mls @ 2.45 mls/hr IV TITR PRN; Protocol PRN Reason: Sedation Last Admin: 04/24/18 09:01 Dose: 0.7 mcg/kg/hr, 8.57 mls/hr Norepinephrine Bitartrate 8 mg (/ Sodium Chloride) 500 mls @ 15 mls/hr IV .Q24H PRN; Protocol PRN Reason: TITRATE PER MD ORDER Last Admin: 04/24/18 08:59 Dose: 12 mcg/min, 45 mls/hr Midodrine (Proamatine) 2.5 mg PO Q8 [facility] Last Admin: 04/24/18 05:30 Dose: 2.5 mg Pantoprazole Sodium (Protonix Ec Tab) 40 mg PO DAILY [facility] Last Admin: 04/23/18 09:53 Dose: 40 mg Tamsulosin HCl (Flomax) 0.4 mg PO DAILY [facility] Last Admin: 04/23/18 09:53 Dose: 0.4 mg - Labs Labs: 04/24/18 05:45 04/24/18 05:45 PT 12.2 SECONDS (9.7-12.2) 04/17/18 07:07 INR 1.1 04/17/18 07:07 APTT 29 SECONDS (21-34) 04/17/18 07:07 - Constitutional Appears: Chronically Ill - Head Exam Head Exam: ATRAUMATIC, NORMAL INSPECTION - Eye Exam Eye Exam: Periorbital swelling - Respiratory Exam Respiratory Exam: Rhonchi, Respiratory Distress - Cardiovascular Exam Cardiovascular Exam: REGULAR RHYTHM, +S1 - GI/Abdominal Exam GI & Abdominal Exam: Soft. absent: Tenderness - Extremities Exam Extremities Exam: Normal Inspection. absent: Tenderness - Neurological Exam Neurological Exam: Altered - Skin Skin Exam: Dry, Warm Assessment and Plan (1) Rectal cancer Status: Acute (2) Pleural effusion Status: Acute (3) Hyponatremia Status: Acute (4) Acute non-ST elevation myocardial infarction (NSTEMI) Status: Acute (5) Rectal adenocarcinoma Status: Acute - Assessment and Plan (Free Text) Plan: supportive care vent/ICU management poor px
--- NOTE | 2018-04-24 09:52 | RAD ---
Date of service: 04/24/2018 HISTORY: Monitoring CT placement etc COMPARISON: Multiple serial examinations preceding the most recent study: April 23, 2018. FINDINGS: LUNGS: No significant interval change compared to the prior examination(s). PLEURA: No significant interval changes. Two chest tubes in satisfactory, stable position in the right pleural space. No discernible pneumothorax. CARDIOVASCULAR: No significant interval change compared to the prior examination(s). OSSEOUS STRUCTURES: No significant abnormalities. VISUALIZED UPPER ABDOMEN: Normal. OTHER FINDINGS: Stable, satisfactory position ventilatory, vascular and nasogastric apparatus. IMPRESSION: No significant interval change compared to the prior examination(s).
[2018-04-24] MEDS: Pantoprazole 40 mg EC Tab PO SCH (10:14)
--- NOTE | 2018-04-24 12:09 | CP.PCM.PN ---
Subjective - Date & Time of Evaluation Date of Evaluation: 04/24/18 Time of Evaluation: 12:06 - Subjective Subjective: Pt s/e. Remains intubated. vss wbc-5k hb-8.5 chest tubes-25/100cc ss/24 hours. cxr-no pneumo. a/p: continue current supportive care. cxr in am. Objective - Vital Signs/Intake and Output Vital Signs (last 24 hours): Temp Pulse Resp BP Pulse Ox 97.9 F 84 20 97/32 L 100 04/24/18 08:00 04/24/18 10:01 04/24/18 10:01 04/24/18 10:01 04/24/18 10:01 Intake and Output: 04/24/18 04/24/18 06:59 18:59 Intake Total 2534.3 313.3 Output Total 435 105 Balance 2099.3 208.3 - Medications Medications: Current Medications Acetaminophen (Tylenol 325mg Tab) 650 mg PO Q4 PRN PRN Reason: Pain, Mild (1-3) Last Admin: 04/21/18 02:03 Dose: 650 mg Acetylcysteine (Acetylcysteine 20%) 4 ml INH RQ6 ANIYAH Last Admin: 04/24/18 07:26 Dose: 4 ml Albuterol/Ipratropium (Duoneb 3 Mg/0.5 Mg (3 Ml) Ud) 3 ml INH RQ4 ANIYAH Last Admin: 04/24/18 07:26 Dose: 3 ml Benzocaine/Menthol (Cepacol Sore Throat) 1 keely MT Q2 PRN PRN Reason: Sore Throat Heparin Sodium (Porcine) (Heparin) 5,000 units SC Q12 ANIYAH Last Admin: 04/24/18 10:15 Dose: 5,000 units Piperacillin Sod/Tazobactam (Sod 3.375 gm/ Sodium Chloride) 100 mls @ 200 mls/hr IVPB Q8H ANIYAH; Protocol Last Admin: 04/24/18 06:00 Dose: 200 mls/hr Dexmedetomidine HCl 200 mcg/ (Sodium Chloride) 50 mls @ 2.45 mls/hr IV TITR PRN; Protocol PRN Reason: Sedation Last Admin: 04/24/18 09:01 Dose: 0.7 mcg/kg/hr, 8.57 mls/hr Norepinephrine Bitartrate 8 mg (/ Sodium Chloride) 500 mls @ 15 mls/hr IV .Q24H PRN; Protocol PRN Reason: TITRATE PER MD ORDER Last Admin: 04/24/18 08:59 Dose: 12 mcg/min, 45 mls/hr Midodrine (Proamatine) 2.5 mg PO Q8 [facility] Last Admin: 04/24/18 05:30 Dose: 2.5 mg Pantoprazole Sodium (Protonix Ec Tab) 40 mg PO DAILY [facility] Last Admin: 04/24/18 10:14 Dose: 40 mg Tamsulosin HCl (Flomax) 0.4 mg PO DAILY [facility] Last Admin: 04/24/18 10:14 Dose: 0.4 mg - Labs Labs: 04/24/18 05:45 04/24/18 05:45 PT 12.2 SECONDS (9.7-12.2) 04/17/18 07:07 INR 1.1 04/17/18 07:07 APTT 29 SECONDS (21-34) 04/17/18 07:07
--- NOTE | 2018-04-24 12:42 | CP.PCM.PN ---
Subjective - Date & Time of Evaluation Date of Evaluation: 04/24/18 Time of Evaluation: 09:00 - Subjective Subjective: patient seen and examined Patient remained intubated on ventilatory support FiO 50 Sedated 2 left chest tube in place Status post bronchoscopy complicated by brief cardiac arrest Objective - Vital Signs/Intake and Output Vital Signs (last 24 hours): Temp Pulse Resp BP Pulse Ox 98.2 F 83 22 90/34 L 100 04/24/18 12:00 04/24/18 12:00 04/24/18 12:00 04/24/18 12:00 04/24/18 12:00 Intake and Output: 04/24/18 04/24/18 06:59 18:59 Intake Total 2534.3 420.5 Output Total 435 115 Balance 2099.3 305.5 - Medications Medications: Current Medications Acetaminophen (Tylenol 325mg Tab) 650 mg PO Q4 PRN PRN Reason: Pain, Mild (1-3) Last Admin: 04/21/18 02:03 Dose: 650 mg Acetylcysteine (Acetylcysteine 20%) 4 ml INH RQ6 ANIYAH Last Admin: 04/24/18 07:26 Dose: 4 ml Albuterol/Ipratropium (Duoneb 3 Mg/0.5 Mg (3 Ml) Ud) 3 ml INH RQ4 ANIYAH Last Admin: 04/24/18 07:26 Dose: 3 ml Benzocaine/Menthol (Cepacol Sore Throat) 1 keely MT Q2 PRN PRN Reason: Sore Throat Heparin Sodium (Porcine) (Heparin) 5,000 units SC Q12 ANIYAH Last Admin: 04/24/18 10:15 Dose: 5,000 units Piperacillin Sod/Tazobactam (Sod 3.375 gm/ Sodium Chloride) 100 mls @ 200 mls/hr IVPB Q8H ANIYAH; Protocol Last Admin: 04/24/18 06:00 Dose: 200 mls/hr Dexmedetomidine HCl 200 mcg/ (Sodium Chloride) 50 mls @ 2.45 mls/hr IV TITR PRN; Protocol PRN Reason: Sedation Last Admin: 04/24/18 09:01 Dose: 0.7 mcg/kg/hr, 8.57 mls/hr Norepinephrine Bitartrate 8 mg (/ Sodium Chloride) 500 mls @ 15 mls/hr IV .Q24H PRN; Protocol PRN Reason: TITRATE PER MD ORDER Last Admin: 04/24/18 08:59 Dose: 12 mcg/min, 45 mls/hr Midodrine (Proamatine) 2.5 mg PO Q8 [facility] Last Admin: 04/24/18 05:30 Dose: 2.5 mg Tamsulosin HCl (Flomax) 0.4 mg PO DAILY [facility] Last Admin: 04/24/18 10:14 Dose: 0.4 mg - Labs Labs: 04/24/18 05:45 04/24/18 05:45 PT 12.2 SECONDS (9.7-12.2) 04/17/18 07:07 INR 1.1 04/17/18 07:07 APTT 29 SECONDS (21-34) 04/17/18 07:07 - Head Exam Head Exam: ATRAUMATIC, NORMOCEPHALIC - Eye Exam Eye Exam: Normal appearance - ENT Exam ENT Exam: Mucous Membranes Moist - Neck Exam Neck Exam: Normal Inspection - Respiratory Exam Respiratory Exam: Decreased Breath Sounds - Cardiovascular Exam Cardiovascular Exam: REGULAR RHYTHM - GI/Abdominal Exam GI & Abdominal Exam: Soft, Normal Bowel Sounds Assessment and Plan (1) Acute respiratory failure Assessment & Plan: Continue ventilatory support IV antibiotics Repeat echocardiogram Case discussed with family at length Status: Acute (2) Pneumonia Status: Acute (3) Acute non-ST elevation myocardial infarction (NSTEMI) Status: Acute (4) Bilateral pleural effusion Status: Acute (5) Acute bacterial endocarditis Status: Acute (6) Lung nodule < 6cm on CT Status: Acute (7) Pneumothorax on left Status: Acute
--- NOTE | 2018-04-24 13:57 | CP.CCUPN ---
<MarquezlorriCameron - Last Filed: 04/24/18 13:58> CCU Subjective - Physician Review Subjective (Free Text): 04/24/18 13:57 Pt seen and examined at bedside. Pt sedated. No acute events overnight. BP stable. Will consider sedation vacation to assess GCS. CCU Objective - Vital Signs / Intake & Output Vital Signs (Last 4 hours): Vital Signs Temp Pulse Resp BP Pulse Ox 04/24/18 12:00 98.2 F 83 22 90/34 L 100 04/24/18 11:01 81 14 90/30 L 100 04/24/18 11:00 84 23 100 04/24/18 10:01 84 20 97/32 L 100 04/24/18 10:00 82 30 H 100 Intake and Output (Last 8hrs): Intake & Output 04/23/18 04/24/18 04/24/18 22:59 06:59 14:59 Intake Total 424.4 2109.9 420.5 Output Total 230 315 115 Balance 194.4 1794.9 305.5 Weight 112 lb 14.027 oz Intake: IV 117.0 491.0 53.9 Intake, IV Amount 207.4 1568.9 306.6 Right Distal Port 100 1100 Subclavian Right Medial Port 48.8 394.0 255.0 Subclavian Right Proximal Port 46.6 74.9 51.6 Subclavian Right Subclavian 12 Oral 100 50 Other 60 Output: Chest Tube Drainage 10 65 Right anterior medial 10 15 chest Right posterior medial 50 chest Urine 220 250 115 Urine, Voided 220 250 115 Other: # Bowel Movements 0 - Physical Exam Physical Exam Limitations: Positive for: Other (sedated) Head: Positive for: Atraumatic, Normocephalic Pupils: Positive for: PERRL Extroacular Muscles: Positive for: Other (left eyeball with upward gaze deviation, blind in left eye, but R eye visual simpson grossly intact) Conjunctiva: Positive for: Normal. Negative for: Injected, Icteric Mouth: Positive for: Moist Mucous Membranes. Negative for: Dry, Drooling Pharnyx: Positive for: Other (intubated) Nose (External): Positive for: Atraumatic Nose (Internal): Positive for: Normal Inspection Neck: Positive for: Trachea Midline. Negative for: Lymphadenopathy Respiratory/Chest: Positive for: Good Air Exchange, Wheezes, Other (chest tubes bilaterally). Negative for: Respiratory Distress Cardiovascular: Positive for: Regular Rate and Rhythm, Normal S1, S2, Tachycardic. Negative for: Irregular Rhythm Abdomen: Positive for: Normal Bowel Sounds. Negative for: Distention, Rebound, Guarding, Mass/Organomegaly Upper Extremity: Positive for: Normal Inspection, NORMAL PULSES. Negative for: Cyanosis, Edema Lower Extremity: Positive for: Normal Inspection, NORMAL PULSES. Negative for: Edema, CALF TENDERNESS, Tenderness, Swelling Neurological: Positive for: Other (unresponsive) Skin: Positive for: Warm, Dry, Normal Color. Negative for: Rashes - Medications Active Medications: Active Medications Generic Name Dose Route Start Last Admin Trade Name Freq PRN Reason Stop Dose Admin Acetaminophen 650 mg 03/19/18 12:00 04/21/18 02:03 Tylenol 325mg Tab PO 650 mg Q4 PRN Administration Pain, Mild (1-3) Acetylcysteine 4 ml 04/23/18 20:00 04/24/18 07:26 Acetylcysteine 20% INH 4 ml RQ6 ANIYAH Administration Albuterol/Ipratropium 3 ml 04/24/18 00:00 04/24/18 07:26 Duoneb 3 Mg/0.5 Mg (3 Ml) Ud INH 3 ml RQ4 ANIYAH Administration Benzocaine/Menthol 1 keely 04/18/18 08:08 Cepacol Sore Throat MT Q2 PRN Sore Throat Heparin Sodium (Porcine) 5,000 units 04/23/18 22:00 04/24/18 10:15 Heparin SC 5,000 units Q12 ANIYAH Administration Piperacillin Sod/Tazobactam 100 mls @ 200 mls/hr 04/22/18 15:00 04/24/18 06:00 Sod 3.375 gm/ Sodium Chloride IVPB 200 mls/hr Q8H ANIYAH Administration Protocol Dexmedetomidine HCl 200 mcg/ 50 mls @ 2.45 mls/hr 04/23/18 11:25 04/24/18 09:01 Sodium Chloride IV 0.7 mcg/kg/hr TITR PRN 8.57 mls/hr Sedation Administration Protocol 0.2 MCG/KG/HR Norepinephrine Bitartrate 8 mg 500 mls @ 15 mls/hr 04/24/18 07:30 04/24/18 08:59 / Sodium Chloride IV 12 mcg/min .Q24H PRN 45 mls/hr TITRATE PER MD ORDER Administration Protocol 4 MCG/MIN Midodrine 2.5 mg 04/18/18 09:15 04/24/18 05:30 Proamatine PO 2.5 mg Q8 ANIYAH Administration Tamsulosin HCl 0.4 mg 04/19/18 10:00 04/24/18 10:14 Flomax PO 0.4 mg DAILY ANIYAH Administration - Patient Studies Lab Studies: Microbiology Studies 04/23/18 21:10 Gram Stain - Final Trachasp Lab Studies 04/24/18 04/24/18 04/24/18 Range/Units 05:45 05:45 05:17 WBC 6.7 (4.8-10.8) K/uL RBC 2.60 L (4.40-5.90) Mil/uL Hgb 8.1 L (12.0-18.0) g/dL Hct 23.3 L (35.0-51.0) % MCV 89.7 (80.0-94.0) fL MCH 31.0 (27.0-31.0) pg MCHC 34.6 (33.0-37.0) g/dL RDW 18.5 H (11.5-14.5) % Plt Count 186 (130-400) K/uL MPV 8.9 (7.2-11.7) fL Neut % (Auto) 83.9 H (50.0-75.0) % Lymph % (Auto) 11.2 L (20.0-40.0) % Elliott % (Auto) 4.6 (0.0-10.0) % Eos % (Auto) 0.0 (0.0-4.0) % Baso % (Auto) 0.3 (0.0-2.0) % Neut # (Auto) 5.6 (1.8-7.0) K/uL Lymph # (Auto) 0.7 L (1.0-4.3) K/uL Elliott # (Auto) 0.3 (0.0-0.8) K/uL Eos # (Auto) 0.0 (0.0-0.7) K/uL Baso # (Auto) 0.0 (0.0-0.2) K/uL Puncture Site R brac pCO2 27 L (35-45) mm/Hg pO2 207 H (30-55) mm/Hg HCO3 26.1 (21-28) mmol/L ABG pH 7.55 H (7.35-7.45) ABG Total CO2 24.4 (22-28) mmol/L ABG O2 Saturation 100.2 H (95-98) % ABG Base Excess 1.4 (-2.0-3.0) mmol/L ABG Hemoglobin 7.3 L (11.7-17.4) g/dL ABG Carboxyhemoglobin 1.4 (0.5-1.5) % POC ABG HHb (Measured) -0.2 L (0.0-5.0) % ABG Methemoglobin 0.6 (0.0-3.0) % [place] Test Na ABG Potassium (3.6-5.2) mmol/L VBG pH (7.32-7.43) VBG pCO2 (40-60) mmHg VBG HCO3 mmol/L VBG Total CO2 (22-28) mmol/L VBG O2 Sat (Calc) (40-65) % VBG Base Excess (0.0-2.0) mmol/L VBG Potassium (3.6-5.2) mmol/L A-a O2 Difference 116.0 mm/Hg Respiratory Index 0.6 Hgb O2 Saturation 98.2 H (95.0-98.0) % Sodium 137 (132-148) mmol/l Chloride 102 (98-107) mmol/L Glucose (75-110) mg/dl Lactate (0.7-2.1) mmol/L Vent Mode Prvc Mechanical Rate 12 FiO2 50.0 % Tidal Volume 350 PEEP 5 Crit Value Called To Crit Value Called By Crit Value Read Back Blood Gas Notified Time Potassium 4.6 (3.6-5.2) mmol/L Carbon Dioxide 25 (22-30) mmol/L Anion Gap 15 (10-20) BUN 49 H (9-20) mg/dL Creatinine 1.7 H (0.8-1.5) mg/dL Est GFR ( Amer) 49 Est GFR (Non-Af Amer) 40 Random Glucose 152 H (75-110) mg/dL Calcium 8.0 L (8.6-10.4) mg/dl Phosphorus 4.5 (2.5-4.5) mg/dL Magnesium 2.3 (1.6-2.3) mg/dL Total Bilirubin 0.7 (0.2-1.3) mg/dL AST 32 (17-59) U/L ALT 33 (21-72) U/L Alkaline Phosphatase 71 (38-126) U/L Total Creatine Kinase (55-170) U/L CK-MB (Mass) (0.0-3.38) ng/mL Troponin I (0.00-0.120) ng/mL Total Protein 5.0 L (6.3-8.3) g/dL Albumin 2.4 L (3.5-5.0) g/dL Globulin 2.6 (2.2-3.9) gm/dL Albumin/Globulin Ratio 0.9 L (1.0-2.1) Arterial Blood Potassium (3.6-5.2) mmol/L Venous Blood Potassium (3.6-5.2) mmol/L Urine Color (YELLOW) Urine Clarity (Clear) Urine pH (5.0-8.0) Ur Specific [place] (1.003-1.030) Urine Protein (NEGATIVE) mg/dL Urine Glucose (UA) (Normal) mg/dL Urine Ketones (NEGATIVE) mg/dL Urine Blood (NEGATIVE) Urine Nitrate (NEGATIVE) Urine Bilirubin (NEGATIVE) Urine Urobilinogen (0.2-1.0) mg/dL Ur Leukocyte Esterase (Negative) Josesito/uL Urine WBC (Auto) (0-5) /hpf Urine RBC (Auto) (0-3) /hpf Ur Squamous Epith Cells (0-5) /hpf Urine Bacteria (<OCC) 04/23/18 04/23/18 04/23/18 Range/Units 22:15 19:00 18:03 WBC (4.8-10.8) K/uL RBC (4.40-5.90) Mil/uL Hgb (12.0-18.0) g/dL Hct (35.0-51.0) % MCV (80.0-94.0) fL MCH (27.0-31.0) pg MCHC (33.0-37.0) g/dL RDW (11.5-14.5) % Plt Count (130-400) K/uL MPV (7.2-11.7) fL Neut % (Auto) (50.0-75.0) % Lymph % (Auto) (20.0-40.0) % Elliott % (Auto) (0.0-10.0) % Eos % (Auto) (0.0-4.0) % Baso % (Auto) (0.0-2.0) % Neut # (Auto) (1.8-7.0) K/uL Lymph # (Auto) (1.0-4.3) K/uL Elliott # (Auto) (0.0-0.8) K/uL Eos # (Auto) (0.0-0.7) K/uL Baso # (Auto) (0.0-0.2) K/uL Puncture Site Rr Lr Lr pCO2 30 L 19 L* 19 L* (35-45) mm/Hg pO2 162 H 214 H 362 H (30-55) mm/Hg HCO3 29.6 H 26.4 30.4 H (21-28) mmol/L ABG pH 7.58 H 7.64 H* 7.72 H* (7.35-7.45) ABG Total CO2 29.0 H 21.1 L 25.2 (22-28) mmol/L ABG O2 Saturation 98.9 H 99.2 H 99.8 H (95-98) % ABG Base Excess 5.9 H 1.8 6.9 H (-2.0-3.0) mmol/L ABG Hemoglobin 7.2 L (11.7-17.4) g/dL ABG Carboxyhemoglobin 0.9 (0.5-1.5) % POC ABG HHb (Measured) 1.1 (0.0-5.0) % ABG Methemoglobin 1.1 (0.0-3.0) % [place]mar Test Unable Unable Unable ABG Potassium 3.8 (3.6-5.2) mmol/L VBG pH (7.32-7.43) VBG pCO2 (40-60) mmHg VBG HCO3 mmol/L VBG Total CO2 (22-28) mmol/L VBG O2 Sat (Calc) (40-65) % VBG Base Excess (0.0-2.0) mmol/L VBG Potassium (3.6-5.2) mmol/L A-a O2 Difference 157.0 190.0 327.0 mm/Hg Respiratory Index 1.0 0.9 0.9 Hgb O2 Saturation 96.9 (95.0-98.0) % Sodium 136.0 (132-148) mmol/l Chloride 108.0 H (98-107) mmol/L Glucose 140 H (75-110) mg/dl Lactate 2.1 (0.7-2.1) mmol/L Vent Mode Prvc Prvc Prvc Mechanical Rate 12 12 24 FiO2 50.0 60.0 100.0 % Tidal Volume 350 400 500 PEEP 5 5 5 Crit Value Called To Dr yuko huntley Crit Value Called By Dolores das Crit Value Read Back Y Y Blood Gas Notified Time 1899 180 Potassium (3.6-5.2) mmol/L Carbon Dioxide (22-30) mmol/L Anion Gap (10-20) BUN (9-20) mg/dL Creatinine (0.8-1.5) mg/dL Est GFR ( Amer) Est GFR (Non-Af Amer) Random Glucose (75-110) mg/dL Calcium (8.6-10.4) mg/dl Phosphorus (2.5-4.5) mg/dL Magnesium (1.6-2.3) mg/dL Total Bilirubin (0.2-1.3) mg/dL AST (17-59) U/L ALT (21-72) U/L Alkaline Phosphatase (38-126) U/L Total Creatine Kinase (55-170) U/L CK-MB (Mass) (0.0-3.38) ng/mL Troponin I (0.00-0.120) ng/mL Total Protein (6.3-8.3) g/dL Albumin (3.5-5.0) g/dL Globulin (2.2-3.9) gm/dL Albumin/Globulin Ratio (1.0-2.1) Arterial Blood Potassium 3.8 (3.6-5.2) mmol/L Venous Blood Potassium (3.6-5.2) mmol/L Urine Color (YELLOW) Urine Clarity (Clear) Urine pH (5.0-8.0) Ur Specific [place] (1.003-1.030) Urine Protein (NEGATIVE) mg/dL Urine Glucose (UA) (Normal) mg/dL Urine Ketones (NEGATIVE) mg/dL Urine Blood (NEGATIVE) Urine Nitrate (NEGATIVE) Urine Bilirubin (NEGATIVE) Urine Urobilinogen (0.2-1.0) mg/dL Ur Leukocyte Esterase (Negative) Josesito/uL Urine WBC (Auto) (0-5) /hpf Urine RBC (Auto) (0-3) /hpf Ur Squamous Epith Cells (0-5) /hpf Urine Bacteria (<OCC) 04/23/18 04/23/18 04/23/18 Range/Units 16:23 14:31 14:31 WBC 5.5 (4.8-10.8) K/uL RBC 2.68 L (4.40-5.90) Mil/uL Hgb 8.0 L (12.0-18.0) g/dL Hct 24.2 L (35.0-51.0) % MCV 90.3 (80.0-94.0) fL MCH 30.0 (27.0-31.0) pg MCHC 33.2 (33.0-37.0) g/dL RDW 19.0 H (11.5-14.5) % Plt Count 156 (130-400) K/uL MPV 9.6 (7.2-11.7) fL Neut % (Auto) 78.2 H (50.0-75.0) % Lymph % (Auto) 18.6 L (20.0-40.0) % Elliott % (Auto) 2.7 (0.0-10.0) % Eos % (Auto) 0.0 (0.0-4.0) % Baso % (Auto) 0.5 (0.0-2.0) % Neut # (Auto) 4.3 (1.8-7.0) K/uL Lymph # (Auto) 1.0 (1.0-4.3) K/uL Elliott # (Auto) 0.1 (0.0-0.8) K/uL Eos # (Auto) 0.0 (0.0-0.7) K/uL Baso # (Auto) 0.0 (0.0-0.2) K/uL Puncture Site pCO2 (35-45) mm/Hg pO2 (30-55) mm/Hg HCO3 (21-28) mmol/L ABG pH (7.35-7.45) ABG Total CO2 (22-28) mmol/L ABG O2 Saturation (95-98) % ABG Base Excess (-2.0-3.0) mmol/L ABG Hemoglobin (11.7-17.4) g/dL ABG Carboxyhemoglobin (0.5-1.5) % POC ABG HHb (Measured) (0.0-5.0) % ABG Methemoglobin (0.0-3.0) % [place] Test ABG Potassium (3.6-5.2) mmol/L VBG pH (7.32-7.43) VBG pCO2 (40-60) mmHg VBG HCO3 mmol/L VBG Total CO2 (22-28) mmol/L VBG O2 Sat (Calc) (40-65) % VBG Base Excess (0.0-2.0) mmol/L VBG Potassium (3.6-5.2) mmol/L A-a O2 Difference mm/Hg Respiratory Index Hgb O2 Saturation (95.0-98.0) % Sodium 133 (132-148) mmol/l Chloride 99 (98-107) mmol/L Glucose (75-110) mg/dl Lactate (0.7-2.1) mmol/L Vent Mode Mechanical Rate FiO2 % Tidal Volume PEEP Crit Value Called To Crit Value Called By Crit Value Read Back Blood Gas Notified Time Potassium 6.3 H* D (3.6-5.2) mmol/L Carbon Dioxide 16 L (22-30) mmol/L Anion Gap 25 H (10-20) BUN 40 H (9-20) mg/dL Creatinine 1.5 (0.8-1.5) mg/dL Est GFR ( Amer) 56 Est GFR (Non-Af Amer) 46 Random Glucose 224 H (75-110) mg/dL Calcium 8.2 L (8.6-10.4) mg/dl Phosphorus 5.9 H (2.5-4.5) mg/dL Magnesium 2.8 H (1.6-2.3) mg/dL Total Bilirubin 0.6 (0.2-1.3) mg/dL AST 21 (17-59) U/L ALT 21 D (21-72) U/L Alkaline Phosphatase 62 (38-126) U/L Total Creatine Kinase 23 L (55-170) U/L CK-MB (Mass) 1.80 (0.0-3.38) ng/mL Troponin I 0.5420 H* (0.00-0.120) ng/mL Total Protein 4.8 L (6.3-8.3) g/dL Albumin 2.3 L (3.5-5.0) g/dL Globulin 2.5 (2.2-3.9) gm/dL Albumin/Globulin Ratio 0.9 L (1.0-2.1) Arterial Blood Potassium (3.6-5.2) mmol/L Venous Blood Potassium (3.6-5.2) mmol/L Urine Color Yellow (YELLOW) Urine Clarity Clear (Clear) Urine pH 7.0 (5.0-8.0) Ur Specific [place] 1.009 (1.003-1.030) Urine Protein Negative (NEGATIVE) mg/dL Urine Glucose (UA) Normal (Normal) mg/dL Urine Ketones Negative (NEGATIVE) mg/dL Urine Blood 3+ H (NEGATIVE) Urine Nitrate Negative (NEGATIVE) Urine Bilirubin Negative (NEGATIVE) Urine Urobilinogen Normal (0.2-1.0) mg/dL Ur Leukocyte Esterase Neg (Negative) Josesito/uL Urine WBC (Auto) 2 (0-5) /hpf Urine RBC (Auto) 10 H (0-3) /hpf Ur Squamous Epith Cells < 1 (0-5) /hpf Urine Bacteria Rare (<OCC) 04/23/18 Range/Units 14:09 WBC (4.8-10.8) K/uL RBC (4.40-5.90) Mil/uL Hgb (12.0-18.0) g/dL Hct (35.0-51.0) % MCV (80.0-94.0) fL MCH (27.0-31.0) pg MCHC (33.0-37.0) g/dL RDW (11.5-14.5) % Plt Count (130-400) K/uL MPV (7.2-11.7) fL Neut % (Auto) (50.0-75.0) % Lymph % (Auto) (20.0-40.0) % Elliott % (Auto) (0.0-10.0) % Eos % (Auto) (0.0-4.0) % Baso % (Auto) (0.0-2.0) % Neut # (Auto) (1.8-7.0) K/uL Lymph # (Auto) (1.0-4.3) K/uL Elliott # (Auto) (0.0-0.8) K/uL Eos # (Auto) (0.0-0.7) K/uL Baso # (Auto) (0.0-0.2) K/uL Puncture Site pCO2 (35-45) mm/Hg pO2 14 L (30-55) mm/Hg HCO3 (21-28) mmol/L ABG pH (7.35-7.45) ABG Total CO2 (22-28) mmol/L ABG O2 Saturation (95-98) % ABG Base Excess (-2.0-3.0) mmol/L ABG Hemoglobin (11.7-17.4) g/dL ABG Carboxyhemoglobin (0.5-1.5) % POC ABG HHb (Measured) (0.0-5.0) % ABG Methemoglobin (0.0-3.0) % [place] Test ABG Potassium (3.6-5.2) mmol/L VBG pH 7.42 (7.32-7.43) VBG pCO2 39 L (40-60) mmHg VBG HCO3 23.4 mmol/L VBG Total CO2 26.5 (22-28) mmol/L VBG O2 Sat (Calc) 16.1 L (40-65) % VBG Base Excess 0.8 (0.0-2.0) mmol/L VBG Potassium 5.4 H (3.6-5.2) mmol/L A-a O2 Difference mm/Hg Respiratory Index Hgb O2 Saturation (95.0-98.0) % Sodium 132.0 (132-148) mmol/l Chloride 103.0 (98-107) mmol/L Glucose 151 H (75-110) mg/dl Lactate 3.6 H (0.7-2.1) mmol/L Vent Mode Mechanical Rate FiO2 100.0 % Tidal Volume PEEP Crit Value Called To Crit Value Called By Crit Value Read Back Blood Gas Notified Time Potassium (3.6-5.2) mmol/L Carbon Dioxide (22-30) mmol/L Anion Gap (10-20) BUN (9-20) mg/dL Creatinine (0.8-1.5) mg/dL Est GFR ( Amer) Est GFR (Non-Af Amer) Random Glucose (75-110) mg/dL Calcium (8.6-10.4) mg/dl Phosphorus (2.5-4.5) mg/dL Magnesium (1.6-2.3) mg/dL Total Bilirubin (0.2-1.3) mg/dL AST (17-59) U/L ALT (21-72) U/L Alkaline Phosphatase (38-126) U/L Total Creatine Kinase (55-170) U/L CK-MB (Mass) (0.0-3.38) ng/mL Troponin I (0.00-0.120) ng/mL Total Protein (6.3-8.3) g/dL Albumin (3.5-5.0) g/dL Globulin (2.2-3.9) gm/dL Albumin/Globulin Ratio (1.0-2.1) Arterial Blood Potassium (3.6-5.2) mmol/L Venous Blood Potassium 5.4 H (3.6-5.2) mmol/L Urine Color (YELLOW) Urine Clarity (Clear) Urine pH (5.0-8.0) Ur Specific [place] (1.003-1.030) Urine Protein (NEGATIVE) mg/dL Urine Glucose (UA) (Normal) mg/dL Urine Ketones (NEGATIVE) mg/dL Urine Blood (NEGATIVE) Urine Nitrate (NEGATIVE) Urine Bilirubin (NEGATIVE) Urine Urobilinogen (0.2-1.0) mg/dL Ur Leukocyte Esterase (Negative) Josesito/uL Urine WBC (Auto) (0-5) /hpf Urine RBC (Auto) (0-3) /hpf Ur Squamous Epith Cells (0-5) /hpf Urine Bacteria (<OCC) Laboratory Results - last 24 hr 04/23/18 04/23/18 04/23/18 14:09 14:31 14:31 WBC 5.5 RBC 2.68 L Hgb 8.0 L Hct 24.2 L MCV 90.3 MCH 30.0 MCHC 33.2 RDW 19.0 H Plt Count 156 MPV 9.6 Neut % (Auto) 78.2 H Lymph % (Auto) 18.6 L Elliott % (Auto) 2.7 Eos % (Auto) 0.0 Baso % (Auto) 0.5 Neut # (Auto) 4.3 Lymph # (Auto) 1.0 Elliott # (Auto) 0.1 Eos # (Auto) 0.0 Baso # (Auto) 0.0 Puncture Site pCO2 pO2 14 L HCO3 ABG pH ABG Total CO2 ABG O2 Saturation ABG Base Excess ABG Hemoglobin ABG Carboxyhemoglobin POC ABG HHb (Measured) ABG Methemoglobin [place] Test ABG Potassium VBG pH 7.42 VBG pCO2 39 L VBG HCO3 23.4 VBG Total CO2 26.5 VBG O2 Sat (Calc) 16.1 L VBG Base Excess 0.8 VBG Potassium 5.4 H A-a O2 Difference Respiratory Index Hgb O2 Saturation Sodium 132.0 133 Chloride 103.0 99 Glucose 151 H Lactate 3.6 H Vent Mode Mechanical Rate FiO2 100.0 Tidal Volume PEEP Crit Value Called To Crit Value Called By Crit Value Read Back Blood Gas Notified Time Potassium 6.3 H* D Carbon Dioxide 16 L Anion Gap 25 H BUN 40 H Creatinine 1.5 Est GFR ( Amer) 56 Est GFR (Non-Af Amer) 46 Random Glucose 224 H Calcium 8.2 L Phosphorus 5.9 H Magnesium 2.8 H Total Bilirubin 0.6 AST 21 ALT 21 D Alkaline Phosphatase 62 Total Creatine Kinase 23 L CK-MB (Mass) 1.80 Troponin I 0.5420 H* Total Protein 4.8 L Albumin 2.3 L Globulin 2.5 Albumin/Globulin Ratio 0.9 L Arterial Blood Potassium Venous Blood Potassium 5.4 H Urine Color Urine Clarity Urine pH Ur Specific [place] Urine Protein Urine Glucose (UA) Urine Ketones Urine Blood Urine Nitrate Urine Bilirubin Urine Urobilinogen Ur Leukocyte Esterase Urine WBC (Auto) Urine RBC (Auto) Ur Squamous Epith Cells Urine Bacteria 04/23/18 04/23/18 04/23/18 16:23 18:03 19:00 WBC RBC Hgb Hct MCV MCH MCHC RDW Plt Count MPV Neut % (Auto) Lymph % (Auto) Elliott % (Auto) Eos % (Auto) Baso % (Auto) Neut # (Auto) Lymph # (Auto) Elliott # (Auto) Eos # (Auto) Baso # (Auto) Puncture Site Lr Lr pCO2 19 L* 19 L* pO2 362 H 214 H HCO3 30.4 H 26.4 ABG pH 7.72 H* 7.64 H* ABG Total CO2 25.2 21.1 L ABG O2 Saturation 99.8 H 99.2 H ABG Base Excess 6.9 H 1.8 ABG Hemoglobin ABG Carboxyhemoglobin POC ABG HHb (Measured) ABG Methemoglobin [place] Test Unable Unable ABG Potassium 3.8 VBG pH VBG pCO2 VBG HCO3 VBG Total CO2 VBG O2 Sat (Calc) VBG Base Excess VBG Potassium A-a O2 Difference 327.0 190.0 Respiratory Index 0.9 0.9 Hgb O2 Saturation Sodium 136.0 Chloride 108.0 H Glucose 140 H Lactate 2.1 Vent Mode Prvc Prvc Mechanical Rate 24 12 FiO2 100.0 60.0 Tidal Volume 500 400 PEEP 5 5 Crit Value Called To Dr yuko huntley Crit Value Called By Estiven das Crit Value Read Back Y Y Blood Gas Notified Time 180 1900 Potassium Carbon Dioxide Anion Gap BUN Creatinine Est GFR ( Amer) Est GFR (Non-Af Amer) Random Glucose Calcium Phosphorus Magnesium Total Bilirubin AST ALT Alkaline Phosphatase Total Creatine Kinase CK-MB (Mass) Troponin I Total Protein Albumin Globulin Albumin/Globulin Ratio Arterial Blood Potassium 3.8 Venous Blood Potassium Urine Color Yellow Urine Clarity Clear Urine pH 7.0 Ur Specific [place] 1.009 Urine Protein Negative Urine Glucose (UA) Normal Urine Ketones Negative Urine Blood 3+ H Urine Nitrate Negative Urine Bilirubin Negative Urine Urobilinogen Normal Ur Leukocyte Esterase Neg Urine WBC (Auto) 2 Urine RBC (Auto) 10 H Ur Squamous Epith Cells < 1 Urine Bacteria Rare 04/23/18 04/24/18 04/24/18 22:15 05:17 05:45 WBC 6.7 RBC 2.60 L Hgb 8.1 L Hct 23.3 L MCV 89.7 MCH 31.0 MCHC 34.6 RDW 18.5 H Plt Count 186 MPV 8.9 Neut % (Auto) 83.9 H Lymph % (Auto) 11.2 L Elliott % (Auto) 4.6 Eos % (Auto) 0.0 Baso % (Auto) 0.3 Neut # (Auto) 5.6 Lymph # (Auto) 0.7 L Elliott # (Auto) 0.3 Eos # (Auto) 0.0 Baso # (Auto) 0.0 Puncture Site Rr R brac pCO2 30 L 27 L pO2 162 H 207 H HCO3 29.6 H 26.1 ABG pH 7.58 H 7.55 H ABG Total CO2 29.0 H 24.4 ABG O2 Saturation 98.9 H 100.2 H ABG Base Excess 5.9 H 1.4 ABG Hemoglobin 7.2 L 7.3 L ABG Carboxyhemoglobin 0.9 1.4 POC ABG HHb (Measured) 1.1 -0.2 L ABG Methemoglobin 1.1 0.6 Delmar Test Unable Na ABG Potassium VBG pH VBG pCO2 VBG HCO3 VBG Total CO2 VBG O2 Sat (Calc) VBG Base Excess VBG Potassium A-a O2 Difference 157.0 116.0 Respiratory Index 1.0 0.6 Hgb O2 Saturation 96.9 98.2 H Sodium Chloride Glucose Lactate Vent Mode Prvc Prvc Mechanical Rate 12 12 FiO2 50.0 50.0 Tidal Volume 350 350 PEEP 5 5 Crit Value Called To Crit Value Called By Crit Value Read Back Blood Gas Notified Time Potassium Carbon Dioxide Anion Gap BUN Creatinine Est GFR ( Amer) Est GFR (Non-Af Amer) Random Glucose Calcium Phosphorus Magnesium Total Bilirubin AST ALT Alkaline Phosphatase Total Creatine Kinase CK-MB (Mass) Troponin I Total Protein Albumin Globulin Albumin/Globulin Ratio Arterial Blood Potassium Venous Blood Potassium Urine Color Urine Clarity Urine pH Ur Specific Delmar Urine Protein Urine Glucose (UA) Urine Ketones Urine Blood Urine Nitrate Urine Bilirubin Urine Urobilinogen Ur Leukocyte Esterase Urine WBC (Auto) Urine RBC (Auto) Ur Squamous Epith Cells Urine Bacteria 04/24/18 05:45 WBC RBC Hgb Hct MCV MCH MCHC RDW Plt Count MPV Neut % (Auto) Lymph % (Auto) Elliott % (Auto) Eos % (Auto) Baso % (Auto) Neut # (Auto) Lymph # (Auto) Elliott # (Auto) Eos # (Auto) Baso # (Auto) Puncture Site pCO2 pO2 HCO3 ABG pH ABG Total CO2 ABG O2 Saturation ABG Base Excess ABG Hemoglobin ABG Carboxyhemoglobin POC ABG HHb (Measured) ABG Methemoglobin Delmar Test ABG Potassium VBG pH VBG pCO2 VBG HCO3 VBG Total CO2 VBG O2 Sat (Calc) VBG Base Excess VBG Potassium A-a O2 Difference Respiratory Index Hgb O2 Saturation Sodium 137 Chloride 102 Glucose Lactate Vent Mode Mechanical Rate FiO2 Tidal Volume PEEP Crit Value Called To Crit Value Called By Crit Value Read Back Blood Gas Notified Time Potassium 4.6 Carbon Dioxide 25 Anion Gap 15 BUN 49 H Creatinine 1.7 H Est GFR ( Amer) 49 Est GFR (Non-Af Amer) 40 Random Glucose 152 H Calcium 8.0 L Phosphorus 4.5 Magnesium 2.3 Total Bilirubin 0.7 AST 32 ALT 33 Alkaline Phosphatase 71 Total Creatine Kinase CK-MB (Mass) Troponin I Total Protein 5.0 L Albumin 2.4 L Globulin 2.6 Albumin/Globulin Ratio 0.9 L Arterial Blood Potassium Venous Blood Potassium Urine Color Urine Clarity Urine pH Ur Specific Delmar Urine Protein Urine Glucose (UA) Urine Ketones Urine Blood Urine Nitrate Urine Bilirubin Urine Urobilinogen Ur Leukocyte Esterase Urine WBC (Auto) Urine RBC (Auto) Ur Squamous Epith Cells Urine Bacteria Fingerstick Blood Sugar Results: 117 Review of Systems - Review of Systems Systems not reviewed;Unavailable: Acuity of Condition Critical Care Progress Note - Nutrition Nutrition: Nutrition Category Date Time Status NPO Diet [DIET] Diets 04/24/18 Breakfast Active Assessment/Plan - Assessment and Plan (Free Text) Assessment: Plan: 67 yo M with PMH of 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 S/p right-sided thoracentesis, 1.5L removed, and L sided thoracentesis, 860ml removed. Repeat CT scan showed re-accumulated bilateral pleural effusions. S/p bilateral pigtail chest tubes. S/p intubation. Neuro: - Sedated on precedex Pulm: - Drainage of chest tubes: L -120ml and R - 165ml in last 24 hrs. Once drainage is <100ml in 24 hours will plan to d/c the pigtail chest tubes. - s/p bilateral pigtail chest tube insertion by IR, continuing to drain - Consulted cardiothoracic for recs; no intervention at this time - septic work up neg for mycoplasma and Leigonella - maintain SaO2 > 92% - s/p intubation Cardio: - Given strep bacteremia and aortic valve thickening on Echo, Cardiology consulted for possible [id number] to r/o any aortic vegetations; continue Rocephin - maintaining MAP > 65 - Echo 03/21: EF 41%, grade-1 abnormal relaxation patter on transmitral doppler, severely thickened aortic valve, cannot exclude aortic valve vegitation - Increasing trop from 03/20-03/21, concerning for NSTEMI; not currently on AC due to concern for bleeding - Bradycardic s/p bronchoscopy, ACLS protocol initiated. - for code blue: compressions , epi x 4, atropine x1, bicarb x 1 - vitals stable today - levophed 8 @ 10mcg/hr - midodrine 2.5 PO q8 GI: - daily protonix for GI ppx - GI signed off, recs radiation course as planned with Rad-onc Renal: - monitor I and O - replete electrolytes as needed Heme: - Monitor H/H - No AC at this time due to concern for bleeding and given rectal bleeding on presentation; SCDs for DVT ppx - Heme-onc following; continue radiation therapy, can start Xeloda as outpatient ID: - Afebrile, no leukocytosis - blood cultures no growth 5 days final - ID following, appreciate all recs; needs [id number] once more medically stable - Zosyn 3.375 gm IV q8h Endo: - maintain euglycemia GI/DVT ppx Case and plan was reviewed and discussed with attending <[facility] - Last Filed: 04/24/18 18:35> CCU Objective - Vital Signs / Intake & Output Vital Signs (Last 4 hours): Vital Signs Temp Pulse Resp BP Pulse Ox 04/24/18 17:00 98 H 34 H 98/40 L 100 04/24/18 16:00 99.2 F 100 H 37 H 97/37 L 100 04/24/18 15:00 91 H 25 H 96/37 L 100 Intake and Output (Last 8hrs): Intake & Output 04/24/18 04/24/18 04/24/18 06:59 14:59 22:59 Intake Total 2109.9 811.3 83.6 Output Total 315 125 10 Balance 1794.9 686.3 73.6 Weight 112 lb 14.027 oz Intake: IV 491.0 53.9 Intake, IV Amount 1568.9 567.4 53.6 Right Distal Port 1100 100 Subclavian Right Medial Port 394.0 390.0 45 Subclavian Right Proximal Port 74.9 77.4 8.6 Subclavian Oral 50 Tube Feeding 80 30 Other 110 Output: Chest Tube Drainage 65 Right anterior medial 15 chest Right posterior medial 50 chest Urine 250 125 10 Urine, Voided 250 125 10 Other: # Bowel Movements 1 - Medications Active Medications: Active Medications Generic Name Dose Route Start Last Admin Trade Name Freq PRN Reason Stop Dose Admin Acetaminophen 650 mg 03/19/18 12:00 04/21/18 02:03 Tylenol 325mg Tab PO 650 mg Q4 PRN Administration Pain, Mild (1-3) Acetylcysteine 4 ml 04/23/18 20:00 04/24/18 14:21 Acetylcysteine 20% INH 4 ml RQ6 ANIYAH Administration Albuterol/Ipratropium 3 ml 04/24/18 00:00 04/24/18 16:20 Duoneb 3 Mg/0.5 Mg (3 Ml) Ud INH 3 ml RQ4 ANIYAH Administration Benzocaine/Menthol 1 keely 04/18/18 08:08 Cepacol Sore Throat MT Q2 PRN Sore Throat Heparin Sodium (Porcine) 5,000 units 04/23/18 22:00 04/24/18 10:15 Heparin SC 5,000 units Q12 ANIYAH Administration Piperacillin Sod/Tazobactam 100 mls @ 200 mls/hr 04/22/18 15:00 04/24/18 14:20 Sod 3.375 gm/ Sodium Chloride IVPB 200 mls/hr Q8H ANIYAH Administration Protocol Norepinephrine Bitartrate 8 mg 500 mls @ 15 mls/hr 04/24/18 07:30 04/24/18 08:59 / Sodium Chloride IV 12 mcg/min .Q24H PRN 45 mls/hr TITRATE PER MD ORDER Administration Protocol 4 MCG/MIN Dexmedetomidine HCl 400 mcg/ 100 mls @ 2.45 mls/hr 04/24/18 14:30 04/24/18 15:38 Sodium Chloride IV 0.7 mcg/kg/hr TITR PRN 8.6 mls/hr Sedation Administration Protocol 0.2 MCG/KG/HR Midodrine 2.5 mg 04/18/18 09:15 04/24/18 14:20 Proamatine PO 2.5 mg Q8 ANIYAH Administration Tamsulosin HCl 0.4 mg 04/19/18 10:00 04/24/18 10:14 Flomax PO 0.4 mg DAILY ANIYAH Administration - Patient Studies Lab Studies: Microbiology Studies 04/23/18 16:23 Urine Culture - Final Urine,Catheterized No Growth (<1,000 CFU/ML) 04/23/18 21:10 Gram Stain - Final Trachasp Lab Studies 04/24/18 04/24/18 04/24/18 Range/Units 05:45 05:45 05:17 WBC 6.7 (4.8-10.8) K/uL RBC 2.60 L (4.40-5.90) Mil/uL Hgb 8.1 L (12.0-18.0) g/dL Hct 23.3 L (35.0-51.0) % MCV 89.7 (80.0-94.0) fL MCH 31.0 (27.0-31.0) pg MCHC 34.6 (33.0-37.0) g/dL RDW 18.5 H (11.5-14.5) % Plt Count 186 (130-400) K/uL MPV 8.9 (7.2-11.7) fL Neut % (Auto) 83.9 H (50.0-75.0) % Lymph % (Auto) 11.2 L (20.0-40.0) % Elliott % (Auto) 4.6 (0.0-10.0) % Eos % (Auto) 0.0 (0.0-4.0) % Baso % (Auto) 0.3 (0.0-2.0) % Neut # (Auto) 5.6 (1.8-7.0) K/uL Lymph # (Auto) 0.7 L (1.0-4.3) K/uL Elliott # (Auto) 0.3 (0.0-0.8) K/uL Eos # (Auto) 0.0 (0.0-0.7) K/uL Baso # (Auto) 0.0 (0.0-0.2) K/uL Puncture Site R brac pCO2 27 L (35-45) mm/Hg pO2 207 H (80-100) mm/Hg HCO3 26.1 (21-28) mmol/L ABG pH 7.55 H (7.35-7.45) ABG Total CO2 24.4 (22-28) mmol/L ABG O2 Saturation 100.2 H (95-98) % ABG Base Excess 1.4 (-2.0-3.0) mmol/L ABG Hemoglobin 7.3 L (11.7-17.4) g/dL ABG Carboxyhemoglobin 1.4 (0.5-1.5) % POC ABG HHb (Measured) -0.2 L (0.0-5.0) % ABG Methemoglobin 0.6 (0.0-3.0) % Delmar Test Na A-a O2 Difference 116.0 mm/Hg Respiratory Index 0.6 Hgb O2 Saturation 98.2 H (95.0-98.0) % Vent Mode Prvc Mechanical Rate 12 FiO2 50.0 % Tidal Volume 350 PEEP 5 Crit Value Called To Crit Value Called By Crit Value Read Back Blood Gas Notified Time Sodium 137 (132-148) mmol/L Potassium 4.6 (3.6-5.2) mmol/L Chloride 102 (98-107) mmol/L Carbon Dioxide 25 (22-30) mmol/L Anion Gap 15 (10-20) BUN 49 H (9-20) mg/dL Creatinine 1.7 H (0.8-1.5) mg/dL Est GFR ( Amer) 49 Est GFR (Non-Af Amer) 40 Random Glucose 152 H (75-110) mg/dL Calcium 8.0 L (8.6-10.4) mg/dl Phosphorus 4.5 (2.5-4.5) mg/dL Magnesium 2.3 (1.6-2.3) mg/dL Total Bilirubin 0.7 (0.2-1.3) mg/dL AST 32 (17-59) U/L ALT 33 (21-72) U/L Alkaline Phosphatase 71 (38-126) U/L Total Protein 5.0 L (6.3-8.3) g/dL Albumin 2.4 L (3.5-5.0) g/dL Globulin 2.6 (2.2-3.9) gm/dL Albumin/Globulin Ratio 0.9 L (1.0-2.1) 04/23/18 04/23/18 Range/Units 22:15 19:00 WBC (4.8-10.8) K/uL RBC (4.40-5.90) Mil/uL Hgb (12.0-18.0) g/dL Hct (35.0-51.0) % MCV (80.0-94.0) fL MCH (27.0-31.0) pg MCHC (33.0-37.0) g/dL RDW (11.5-14.5) % Plt Count (130-400) K/uL MPV (7.2-11.7) fL Neut % (Auto) (50.0-75.0) % Lymph % (Auto) (20.0-40.0) % Elliott % (Auto) (0.0-10.0) % Eos % (Auto) (0.0-4.0) % Baso % (Auto) (0.0-2.0) % Neut # (Auto) (1.8-7.0) K/uL Lymph # (Auto) (1.0-4.3) K/uL Elliott # (Auto) (0.0-0.8) K/uL Eos # (Auto) (0.0-0.7) K/uL Baso # (Auto) (0.0-0.2) K/uL Puncture Site Rr Lr pCO2 30 L 19 L* (35-45) mm/Hg pO2 162 H 214 H (80-100) mm/Hg HCO3 29.6 H 26.4 (21-28) mmol/L ABG pH 7.58 H 7.64 H* (7.35-7.45) ABG Total CO2 29.0 H 21.1 L (22-28) mmol/L ABG O2 Saturation 98.9 H 99.2 H (95-98) % ABG Base Excess 5.9 H 1.8 (-2.0-3.0) mmol/L ABG Hemoglobin 7.2 L (11.7-17.4) g/dL ABG Carboxyhemoglobin 0.9 (0.5-1.5) % POC ABG HHb (Measured) 1.1 (0.0-5.0) % ABG Methemoglobin 1.1 (0.0-3.0) % Delmar Test Unable Unable A-a O2 Difference 157.0 190.0 mm/Hg Respiratory Index 1.0 0.9 Hgb O2 Saturation 96.9 (95.0-98.0) % Vent Mode Prvc Prvc Mechanical Rate 12 12 FiO2 50.0 60.0 % Tidal Volume 350 400 PEEP 5 5 Crit Value Called To Dr huntley Crit Value Called By Dolores das Crit Value Read Back Y Blood Gas Notified Time 1900 Sodium (132-148) mmol/L Potassium (3.6-5.2) mmol/L Chloride (98-107) mmol/L Carbon Dioxide (22-30) mmol/L Anion Gap (10-20) BUN (9-20) mg/dL Creatinine (0.8-1.5) mg/dL Est GFR ( Amer) Est GFR (Non-Af Amer) Random Glucose (75-110) mg/dL Calcium (8.6-10.4) mg/dl Phosphorus (2.5-4.5) mg/dL Magnesium (1.6-2.3) mg/dL Total Bilirubin (0.2-1.3) mg/dL AST (17-59) U/L ALT (21-72) U/L Alkaline Phosphatase (38-126) U/L Total Protein (6.3-8.3) g/dL Albumin (3.5-5.0) g/dL Globulin (2.2-3.9) gm/dL Albumin/Globulin Ratio (1.0-2.1) Laboratory Results - last 24 hr 04/23/18 04/23/18 04/24/18 19:00 22:15 05:17 WBC RBC Hgb Hct MCV MCH MCHC RDW Plt Count MPV Neut % (Auto) Lymph % (Auto) Elliott % (Auto) Eos % (Auto) Baso % (Auto) Neut # (Auto) Lymph # (Auto) Elliott # (Auto) Eos # (Auto) Baso # (Auto) Puncture Site Lr Rr R brac pCO2 19 L* 30 L 27 L pO2 214 H 162 H 207 H HCO3 26.4 29.6 H 26.1 ABG pH 7.64 H* 7.58 H 7.55 H ABG Total CO2 21.1 L 29.0 H 24.4 ABG O2 Saturation 99.2 H 98.9 H 100.2 H ABG Base Excess 1.8 5.9 H 1.4 ABG Hemoglobin 7.2 L 7.3 L ABG Carboxyhemoglobin 0.9 1.4 POC ABG HHb (Measured) 1.1 -0.2 L ABG Methemoglobin 1.1 0.6 Delmar Test Unable Unable Na A-a O2 Difference 190.0 157.0 116.0 Respiratory Index 0.9 1.0 0.6 Hgb O2 Saturation 96.9 98.2 H Vent Mode Prvc Prvc Prvc Mechanical Rate 12 12 12 FiO2 60.0 50.0 50.0 Tidal Volume 400 350 350 PEEP 5 5 5 Crit Value Called To Dr huntley Crit Value Called By Dolores das Crit Value Read Back Y Blood Gas Notified Time 1900 Sodium Potassium Chloride Carbon Dioxide Anion Gap BUN Creatinine Est GFR ( Amer) Est GFR (Non-Af Amer) Random Glucose Calcium Phosphorus Magnesium Total Bilirubin AST ALT Alkaline Phosphatase Total Protein Albumin Globulin Albumin/Globulin Ratio 04/24/18 04/24/18 05:45 05:45 WBC 6.7 RBC 2.60 L Hgb 8.1 L Hct 23.3 L MCV 89.7 MCH 31.0 MCHC 34.6 RDW 18.5 H Plt Count 186 MPV 8.9 Neut % (Auto) 83.9 H Lymph % (Auto) 11.2 L Elliott % (Auto) 4.6 Eos % (Auto) 0.0 Baso % (Auto) 0.3 Neut # (Auto) 5.6 Lymph # (Auto) 0.7 L Elliott # (Auto) 0.3 Eos # (Auto) 0.0 Baso # (Auto) 0.0 Puncture Site pCO2 pO2 HCO3 ABG pH ABG Total CO2 ABG O2 Saturation ABG Base Excess ABG Hemoglobin ABG Carboxyhemoglobin POC ABG HHb (Measured) ABG Methemoglobin Delmar Test A-a O2 Difference Respiratory Index Hgb O2 Saturation Vent Mode Mechanical Rate FiO2 Tidal Volume PEEP Crit Value Called To Crit Value Called By Crit Value Read Back Blood Gas Notified Time Sodium 137 Potassium 4.6 Chloride 102 Carbon Dioxide 25 Anion Gap 15 BUN 49 H Creatinine 1.7 H Est GFR ( Amer) 49 Est GFR (Non-Af Amer) 40 Random Glucose 152 H Calcium 8.0 L Phosphorus 4.5 Magnesium 2.3 Total Bilirubin 0.7 AST 32 ALT 33 Alkaline Phosphatase 71 Total Protein 5.0 L Albumin 2.4 L Globulin 2.6 Albumin/Globulin Ratio 0.9 L Critical Care Progress Note - Nutrition Nutrition: Nutrition Category Date Time Status NPO Diet [DIET] Diets 04/24/18 Breakfast Active Attending/Attestation - Attestation I have personally seen and examined this patient.: Yes I have fully participated in the care of the patient.: Yes I have reviewed all pertinent clinical information: Yes Notes (Text): 04/24/18 18:31 I have seen and examined the patient. Medical records, lab studies, and imaging were reviewed by me and a management plan was formulated on multidisciplinary rounds with resident Dr. Stack. I agree with their documented assessment and plan. 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 patient has coded previously and his risk for decompensation was high. He then became suddenly hypoxic and then bradycardic and coded again, ACLS protocol initiated, but he was not successfully resuscitated. Family at bedside, attending to be notified. Time of 6pm. Critical Care Time 35 minutes. Multi-disciplinary rounds were performed with house staff, nursing, speech therapy, respiratory therapy, pharmacy and nutrition with integrated input from the primary team/attending and other consulting services. The documented time is cumulative and includes review of patient data/exams/labs/chart review and examination of the patient on rounds and throughout the day; time is exclusive of any procedures or teaching time.
[2018-04-24] MEDS ORDERED: Dexmedetomidine Hydrochloride 400 MCG in Sodium Chloride 0.9% 96 ML IV PRN (14:30)
[2018-04-24 16:30] VITALS: TEMP 99.2
[2018-04-24 17:26] VITALS: BP 98/40; PULSE 98; RESP 34
--- NOTE | 2018-04-24 17:48 | CP.PCM.PN ---
Subjective - Date & Time of Evaluation Date of Evaluation: 04/24/18 Time of Evaluation: 07:00 - Subjective Subjective: shortly after my visit pt developed asystole code blue called Objective - Vital Signs/Intake and Output Vital Signs (last 24 hours): Temp Pulse Resp BP Pulse Ox 99.2 F 98 H 34 H 98/40 L 100 04/24/18 16:00 04/24/18 17:00 04/24/18 17:00 04/24/18 17:00 04/24/18 17:00 Intake and Output: 04/24/18 04/24/18 06:59 18:59 Intake Total 2534.3 894.9 Output Total 435 135 Balance 2099.3 759.9 - Medications Medications: Current Medications Acetaminophen (Tylenol 325mg Tab) 650 mg PO Q4 PRN PRN Reason: Pain, Mild (1-3) Last Admin: 04/21/18 02:03 Dose: 650 mg Acetylcysteine (Acetylcysteine 20%) 4 ml INH RQ6 ANIYAH Last Admin: 04/24/18 14:21 Dose: 4 ml Albuterol/Ipratropium (Duoneb 3 Mg/0.5 Mg (3 Ml) Ud) 3 ml INH RQ4 ANIYAH Last Admin: 04/24/18 16:20 Dose: 3 ml Benzocaine/Menthol (Cepacol Sore Throat) 1 keely MT Q2 PRN PRN Reason: Sore Throat Heparin Sodium (Porcine) (Heparin) 5,000 units SC Q12 ANIYAH Last Admin: 04/24/18 10:15 Dose: 5,000 units Piperacillin Sod/Tazobactam (Sod 3.375 gm/ Sodium Chloride) 100 mls @ 200 mls/hr IVPB Q8H ANIYAH; Protocol Last Admin: 04/24/18 14:20 Dose: 200 mls/hr Norepinephrine Bitartrate 8 mg (/ Sodium Chloride) 500 mls @ 15 mls/hr IV .Q24H PRN; Protocol PRN Reason: TITRATE PER MD ORDER Last Admin: 04/24/18 08:59 Dose: 12 mcg/min, 45 mls/hr Dexmedetomidine HCl 400 mcg/ (Sodium Chloride) 100 mls @ 2.45 mls/hr IV TITR PRN; Protocol PRN Reason: Sedation Last Admin: 04/24/18 15:38 Dose: 0.7 mcg/kg/hr, 8.6 mls/hr Midodrine (Proamatine) 2.5 mg PO Q8 [facility] Last Admin: 04/24/18 14:20 Dose: 2.5 mg Tamsulosin HCl (Flomax) 0.4 mg PO DAILY [facility] Last Admin: 04/24/18 10:14 Dose: 0.4 mg - Labs Labs: 04/24/18 05:45 04/24/18 05:45 PT 12.2 SECONDS (9.7-12.2) 04/17/18 07:07 INR 1.1 04/17/18 07:07 APTT 29 SECONDS (21-34) 04/17/18 07:07 - Constitutional Appears: Confused - Head Exam Head Exam: NORMOCEPHALIC - Eye Exam Eye Exam: absent: Scleral icterus - ENT Exam ENT Exam: Mucous Membranes Dry - Neck Exam Neck Exam: absent: Lymphadenopathy - Respiratory Exam Respiratory Exam: Decreased Breath Sounds - Cardiovascular Exam Cardiovascular Exam: REGULAR RHYTHM - GI/Abdominal Exam GI & Abdominal Exam: Distended - Rectal Exam Rectal Exam: Deferred Assessment and Plan (1) Anemia Status: Acute (2) Pneumonia Status: Resolved (3) Mass in rectum Status: Acute (4) Rectal adenocarcinoma Status: Acute (5) Endocarditis Status: Acute (6) Respiratory failure Status: Acute (7) Respiratory failure Status: Acute (8) Pneumonia Status: Acute (9) Pneumothorax on left Status: Acute (10) Pneumothorax on right Status: Acute - Assessment and Plan (Free Text) Assessment: colon ca resp failure endocarditis pneumonia poor prognosis cont supportive rx
--- NOTE | 2018-04-24 18:08 | CP.PCM.PRO ---
<Cmaeron Stack - Last Filed: 04/24/18 18:11> Pronouncement of Note - Clinical Findings Physical Exam: No Response Verbal/Painful Stimuli, Absent Peripheral Pulses{Carotid & Femoral}, Absent Heart & Breath Sounds, No Corneal Reflex - Pronouncement Time Time of Pronouncement of : 18:01 (absent heart and lung sounds, absent corneal reflex, asystole on monitor) Additional Comments: Code Blue Called: compressions started, ACLS protocol initiated. epi given x6- 1745, 1748, 1751 (no pulse), 1754, 1757, 1800,. at 1800 no pulse absent corneal reflex pupils non reactive - Notifications Pronouncement Notifications: Family Notified <IrmaDuke - Last Filed: 04/24/18 18:52> Pronouncement of Note - Notifications Roller Turner Notified: No - Autopsy Autopsy Requested: No - [place]: [id number]
--- NOTE | 2018-05-01 09:16 | CP.PCM.DIS ---
Provider - Provider Date of Admission: 03/18/18 18:59 Attending physician: Nano Ray MD Primary care physician: Nano Ray M.D. Consults: Dr Mcgregor( ID), Dr Rivera ( HemOnc), Dr Morales ( Nephro) Dr Huntley ( Pulmonary) Dr Michel (Thoracic ) Dr Godoy ( IR). Dr Perez ( GI). Time Spent in preparation of Discharge (in minutes): 60 Diagnosis - Discharge Diagnosis (1) Lower GI bleeding Status: Resolved (2) Anemia Status: Acute (3) Pneumonia Status: Resolved (4) Hyperkalemia Status: Resolved (5) Hyponatremia Status: Acute (6) Acute diastolic (congestive) heart failure Status: Resolved (7) Acute bacterial endocarditis Status: Acute (8) Acute non-ST elevation myocardial infarction (NSTEMI) Status: Acute (9) Bilateral pleural effusion Status: Acute (10) Acute respiratory failure Status: Acute Hospital Course - Lab Results Lab Results: Micro Results 04/24/18 06:23 Blood-Venous Blood Culture - Final NO GROWTH AFTER 5 DAYS 04/24/18 06:23 Blood-Venous Gram Stain - Final TEST NOT PERFORMED 04/24/18 06:22 Blood-Venous Blood Culture - Final NO GROWTH AFTER 5 DAYS 04/24/18 06:22 Blood-Venous Gram Stain - Final TEST NOT PERFORMED 04/23/18 Unknown Bronchial Washings Bronchial Culture - Final No growth. 04/23/18 Unknown Bronchial Washings Fungal Culture - Final Jillian Guilliermondii 04/23/18 Unknown Other: Please Indicate Mycobacterial Culture - Preliminary 04/23/18 21:10 Trachasp Gram Stain - Final 04/23/18 21:10 Trachasp Sputum Culture - Final No growth. 04/23/18 16:23 Urine,Catheterized Urine Culture - Final No Growth (<1,000 CFU/ML) 04/17/18 Unknown Nose MRSA Culture (Admit) - Final MRSA NOT DETECTED 04/04/18 11:03 Naris MRSA Culture - Final MRSA NOT DETECTED 03/25/18 12:12 Blood Blood Culture - Final NO GROWTH AFTER 5 DAYS 03/25/18 12:12 Blood Gram Stain - Final TEST NOT PERFORMED 03/25/18 12:12 Blood Blood Culture - Final NO GROWTH AFTER 5 DAYS 03/25/18 12:12 Blood Gram Stain - Final TEST NOT PERFORMED 03/21/18 Unknown Urine,[place] Urine Culture - Final No Growth (<1,000 CFU/ML) 03/21/18 Unknown Nose MRSA Culture (Admit) - Final MRSA NOT DETECTED 03/18/18 19:15 Blood-Venous Blood Culture - Final Streptococcus Viridans 03/18/18 19:15 Blood-Venous Gram Stain - Final 03/18/18 19:00 Blood-Venous S.aureus & Coag-Neg Staph PNA FISH - Final 03/18/18 19:00 Blood-Venous Blood Culture - Final Streptococcus Viridans 03/18/18 19:00 Blood-Venous Gram Stain - Final Most Recent Lab Values WBC 6.7 K/uL (4.8-10.8) 04/24/18 05:45 RBC 2.60 Mil/uL (4.40-5.90) L 04/24/18 05:45 Hgb 8.1 g/dL (12.0-18.0) L 04/24/18 05:45 Hct 23.3 % (35.0-51.0) L 04/24/18 05:45 MCV 89.7 fL (80.0-94.0) 04/24/18 05:45 MCH 31.0 pg (27.0-31.0) 04/24/18 05:45 MCHC 34.6 g/dL (33.0-37.0) 04/24/18 05:45 RDW 18.5 % (11.5-14.5) H 04/24/18 05:45 Plt Count 186 K/uL (130-400) 04/24/18 05:45 MPV 8.9 fL (7.2-11.7) 04/24/18 05:45 Neut % (Auto) 83.9 % (50.0-75.0) H 04/24/18 05:45 Lymph % (Auto) 11.2 % (20.0-40.0) L 04/24/18 05:45 Brown % (Auto) 4.6 % (0.0-10.0) 04/24/18 05:45 Eos % (Auto) 0.0 % (0.0-4.0) 04/24/18 05:45 Baso % (Auto) 0.3 % (0.0-2.0) 04/24/18 05:45 Neut # (Auto) 5.6 K/uL (1.8-7.0) 04/24/18 05:45 Lymph # (Auto) 0.7 K/uL (1.0-4.3) L 04/24/18 05:45 Brown # (Auto) 0.3 K/uL (0.0-0.8) 04/24/18 05:45 Eos # (Auto) 0.0 K/uL (0.0-0.7) 04/24/18 05:45 Baso # (Auto) 0.0 K/uL (0.0-0.2) 04/24/18 05:45 Neutrophils % (Manual) 84 % (50-75) H 04/20/18 06:27 Band Neutrophils % 1 % (0-2) 04/20/18 06:27 Lymphocytes % (Manual) 12 % (20-40) L 04/20/18 06:27 Monocytes % (Manual) 3 % (0-10) 04/20/18 06:27 Basophils % (Manual) 1 % (0-2) 03/23/18 03:56 Toxic Granulation Present 04/20/18 06:27 Platelet Estimate Normal (NORMAL) 04/20/18 06:27 Plt Clumps, EDTA Present 04/06/18 08:05 Large Platelets Present 04/20/18 06:27 Giant Platelets Present 03/29/18 06:57 Polychromasia Slight 04/20/18 06:27 Hypochromasia (manual) Slight 04/20/18 06:27 Poikilocytosis (manual Slight 04/20/18 06:27 Anisocytosis (manual) Marked 04/20/18 06:27 Microcytosis (manual) Slight 04/19/18 06:26 Spherocytes Slight 03/29/18 06:57 Ovalocytes Slight 04/20/18 06:27 [place] Cells Slight 04/20/18 06:27 Schistocytes Slight 04/19/18 06:26 PT 12.2 SECONDS (9.7-12.2) 04/17/18 07:07 INR 1.1 04/17/18 07:07 APTT 29 SECONDS (21-34) 04/17/18 07:07 Puncture Site R brac 04/24/18 05:17 pCO2 27 mm/Hg (35-45) L 04/24/18 05:17 pO2 207 mm/Hg (80-100) H 04/24/18 05:17 HCO3 26.1 mmol/L (21-28) 04/24/18 05:17 ABG pH 7.55 (7.35-7.45) H 04/24/18 05:17 ABG Total CO2 24.4 mmol/L (22-28) 04/24/18 05:17 ABG O2 Saturation 100.2 % (95-98) H 04/24/18 05:17 ABG Base Excess 1.4 mmol/L (-2.0-3.0) 04/24/18 05:17 ABG Hemoglobin 7.3 g/dL (11.7-17.4) L 04/24/18 05:17 ABG Carboxyhemoglobin 1.4 % (0.5-1.5) 04/24/18 05:17 POC ABG HHb (Measured) -0.2 % (0.0-5.0) L 04/24/18 05:17 ABG Methemoglobin 0.6 % (0.0-3.0) 04/24/18 05:17 [place] Test Na 04/24/18 05:17 ABG Potassium 3.8 mmol/L (3.6-5.2) 04/23/18 18:03 VBG pH 7.42 (7.32-7.43) 04/23/18 14:09 VBG pCO2 39 mmHg (40-60) L 04/23/18 14:09 VBG HCO3 23.4 mmol/L 04/23/18 14:09 VBG Total CO2 26.5 mmol/L (22-28) 04/23/18 14:09 VBG O2 Sat (Calc) 16.1 % (40-65) L 04/23/18 14:09 VBG Base Excess 0.8 mmol/L (0.0-2.0) 04/23/18 14:09 VBG Potassium 5.4 mmol/L (3.6-5.2) H 04/23/18 14:09 A-a O2 Difference 116.0 mm/Hg 04/24/18 05:17 Respiratory Index 0.6 04/24/18 05:17 Hgb O2 Saturation 98.2 % (95.0-98.0) H 04/24/18 05:17 Sodium 136.0 mmol/l (132-148) 04/23/18 18:03 Chloride 108.0 mmol/L (98-107) H 04/23/18 18:03 Glucose 140 mg/dl (75-110) H 04/23/18 18:03 Lactate 2.1 mmol/L (0.7-2.1) 04/23/18 18:03 Liter Flow 3.0 03/28/18 10:47 Vent Mode Prvc 04/24/18 05:17 Mechanical Rate 12 04/24/18 05:17 FiO2 50.0 % 04/24/18 05:17 Tidal Volume 350 04/24/18 05:17 PEEP 5 04/24/18 05:17 Inspiratory BiPAP 14 03/25/18 23:55 Expiratory BiPAP 7 03/25/18 23:55 Crit Value Called To Dr huntley 04/23/18 19:00 Crit Value Called By Dolores das 04/23/18 19:00 Crit Value Read Back Y 04/23/18 19:00 Blood Gas Notified Time 1900 04/23/18 19:00 Sodium 137 mmol/L (132-148) 04/24/18 05:45 Potassium 4.6 mmol/L (3.6-5.2) 04/24/18 05:45 Chloride 102 mmol/L (98-107) 04/24/18 05:45 Carbon Dioxide 25 mmol/L (22-30) 04/24/18 05:45 Anion Gap 15 (10-20) 04/24/18 05:45 BUN 49 mg/dL (9-20) H 04/24/18 05:45 Creatinine 1.7 mg/dL (0.8-1.5) H 04/24/18 05:45 Est GFR ( Amer) 49 04/24/18 05:45 Est GFR (Non-Af Amer) 40 04/24/18 05:45 POC Glucose (mg/dL) 117 mg/dL (65-110) H 04/17/18 06:40 Random Glucose 152 mg/dL (75-110) H 04/24/18 05:45 Hemoglobin A1c 6.5 % (4.2-6.5) 03/19/18 04:20 Lactic Acid 1.6 mmol/L (0.7-2.1) 03/23/18 03:56 Uric Acid 8.8 mg/dL (3.5-8.5) H 04/07/18 11:46 Calcium 8.0 mg/dl (8.6-10.4) L 04/24/18 05:45 Phosphorus 4.5 mg/dL (2.5-4.5) 04/24/18 05:45 Magnesium 2.3 mg/dL (1.6-2.3) 04/24/18 05:45 Total Bilirubin 0.7 mg/dL (0.2-1.3) 04/24/18 05:45 AST 32 U/L (17-59) 04/24/18 05:45 ALT 33 U/L (21-72) 04/24/18 05:45 Alkaline Phosphatase 71 U/L (38-126) 04/24/18 05:45 Total Creatine Kinase 23 U/L (55-170) L 04/23/18 14:31 CK-MB (Mass) 1.80 ng/mL (0.0-3.38) 04/23/18 14:31 Troponin I 0.5420 ng/mL (0.00-0.120) H* 04/23/18 14:31 NT-Pro-B Natriuret Pep 51665 pg/mL (0-900) H 03/26/18 06:13 Total Protein 5.0 g/dL (6.3-8.3) L 04/24/18 05:45 Albumin 2.4 g/dL (3.5-5.0) L 04/24/18 05:45 Globulin 2.6 gm/dL (2.2-3.9) 04/24/18 05:45 Albumin/Globulin Ratio 0.9 (1.0-2.1) L 04/24/18 05:45 Procalcitonin 0.16 NG/ML (0.19-0.49) L 03/27/18 09:10 Arterial Blood Potassium 3.8 mmol/L (3.6-5.2) 04/23/18 18:03 Venous Blood Potassium 5.4 mmol/L (3.6-5.2) H 04/23/18 14:09 Urine Color Yellow (YELLOW) 04/23/18 16:23 Urine Clarity Clear (Clear) 04/23/18 16:23 Urine pH 7.0 (5.0-8.0) 04/23/18 16:23 Ur Specific [place] 1.009 (1.003-1.030) 04/23/18 16:23 Urine Protein Negative mg/dL (NEGATIVE) 04/23/18 16:23 Urine Glucose (UA) Normal mg/dL (Normal) 04/23/18 16:23 Urine Ketones Negative mg/dL (NEGATIVE) 04/23/18 16:23 Urine Blood 3+ (NEGATIVE) H 04/23/18 16:23 Urine Nitrate Negative (NEGATIVE) 04/23/18 16:23 Urine Bilirubin Negative (NEGATIVE) 04/23/18 16:23 Urine Urobilinogen Normal mg/dL (0.2-1.0) 04/23/18 16:23 Ur Leukocyte Esterase Neg [place]/uL (Negative) 04/23/18 16:23 Urine WBC (Auto) 2 /hpf (0-5) 04/23/18 16:23 Urine RBC (Auto) 10 /hpf (0-3) H 04/23/18 16:23 Ur Squamous Epith Cells < 1 /hpf (0-5) 04/23/18 16:23 Uric Acid Crystals Rare /hpf (<OCC) 04/10/18 23:00 Amorphous Sediment Occ /ul (<OCC) H 03/22/18 06:11 Urine Bacteria Rare (<OCC) 04/23/18 16:23 Hyaline Casts 6-10 /lpf (0-2) H 03/22/18 06:11 Urine Osmolality 615 mosm/kg (300-1000) 04/23/18 04:38 Ur Random Sodium < 5 mmol/L 04/23/18 04:38 Fluid Source Pleural 04/18/18 09:10 Fluid Appearance Bloody (CLEAR) 04/18/18 09:10 Fluid WBC 761.0 /mm3 (0.0-300.0) H 04/18/18 09:10 Fluid RBC 65468.0 /mm3 (0.0-0.0) H 04/18/18 09:10 Fluid Tot Cell Count 100 (0-0) H 04/18/18 09:10 Fluid Neutrophils 37.0 % (0-0) H 04/18/18 09:10 Fluid Lymphocytes 61.0 % (0-0) H 04/18/18 09:10 Fld Monocyte/Macrophag 1 % (0-0) H 04/18/18 09:10 Fluid Albumin 0.8 g/dL 03/24/18 12:06 Fluid Comment 04/18/18 09:10 Pleural pH 8.0 03/24/18 12:06 Pleural Total Protein <3.0 g/dL 04/18/18 09:10 Pleural LDH 215 U/L 04/18/18 09:10 Pleural Glucose 147 mg/dL 04/18/18 09:10 Pleural Amylase 14 U/L 04/18/18 09:10 Pleural Cholesterol 16 mg/dL 03/24/18 12:06 Pleural Triglycerides 15 mg/dL 03/22/18 11:20 Pleur Adenosine Deamin TNP 03/22/18 11:25 Pleural Fluid CEA 0.5 ng/mL (<10.0) 03/24/18 12:08 Ur L.pneumophila Ag Negative (NEGATIVE) 03/25/18 12:12 Mycoplasma pneumon IgM Negative (NEGATIVE) 03/25/18 12:12 Blood Type O POSITIVE 04/20/18 12:03 Antibody Screen Negative 04/20/18 12:03 Antibody Identification Anti Lori 03/18/18 18:27 - Hospital Course Hospital Course: 67 yo [place] male was sent to the ED at [facility] by DR Rivera because of continuing rectal bleeding and SOB. In the ED, a CXR revealed bilateral basilar consolidation and a WBC:14.9 Hb.4 Na+: 129. He was recently diagnosed as having an invasive rectal moderately differentiated adenocarcinoma, undergoing radiation therapy. A recent PET CT revealed possible pelvic seeding of the tumor. He is also known to have a BPH, a hypertension, a gout, a hyperlipidemia, and he quit cigarette smoking 15 years ago. He was started on Cefepime and Vancomycine in the ED, IV NS, and sent to telemetry floor. Dr Mcgregor subsequently put him on Rocephin and Azithromycin IV. On the medical floor, he received transfusion of 2 units of PRC on 03/19/2018, ordered by Dr Rivera. On 03/20/2018, he became SOB. A CXR revealed bilateral pleural effusion. An ECG revealed a sinus tachycardia, with no acute ST-T change. He received Lasix 40 mg IV and was placed on BIPAP with improvement. Serum TNI was 0.5. On 03/21/2018, he became SOB again. He was transferred to ICU for an acute respiratory failure. He was again given Lasix IV for a bilateral pleural effusion. Right thoracentesis was performed on 03/22/2018 and a left thoracentesis on 03/24/2018. But bilateral pleural effusion recurred causing SOB. On 03/26/2018, bilateral draining pigtail catheters were inserted by Dr. Godoy ( IR). He was discharged to telemetry floor on 04/01/2018. Because of persistent bilateral pleural effusion, Dr Michel was called to perform bilateral pleurodesis. A CT scan of chest revealed multiple small masses scattered in both lung simpson, suggesting metastases. Blood cultures were positive for Strep Viridans. The patient was continued on Rocephin 2 g IV q d. Initially, the patient and his family were undecided about the pleurodesis. Finally, the patient consented to it. He underwent a right chest tube insertion with pleurodesis with Talc powder on 04/07/2018. Post-operatively, he was monitored in ICU. Repeated CT scan of the chest revealed bilateral co nsolidation and a mucus plug which causes atelectasis of the RLL, and bilateral effusion. Patient remained very weak, with poor appetite, but his respiration was fine. On 04/23/2018, he developed dyspnea while in ICU and required tracheal intubation. A right CVP line was inserted,. He underwent bronchoscopy and bronchial lavage. But, during the procedure, the patient became bradycardic, and lost his pulses. He was coded, put on Vasopressors. He became unresponsive. On 04/24/2018, he developed asystoly, was resuscitated unsuccessfully and was pronounced on 04/24/2018 at 18:01. 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 7-Severe Anemia secondary to rectal bleeding 8-Acute Non ST elevation myocardial infarction - Date & Time of H&P Date of H&P: 03/19/18 Discharge Exam - Head Exam Head Exam: NORMOCEPHALIC Discharge Plan - Follow Up Plan Condition: GOOD Disposition: WITH WITHOUT AUTOPSY
== END 2018-04-24 18:00 | DRG 166 ==
LOC: C.ER 16:37 → C.9E 18:59 → C.6T 03-19 08:26 → C.9I 03-21 20:01 → C.6T 04-04 10:23 → C.9S 04-17 13:43 → C.9I 04-17 13:44
PROVIDERS: ADMIT Internal Medicine Cardiovascular Disease; ATTEND Internal Medicine Cardiovascular Disease
PROC: 30233N1 Transfusion of Nonautologous Red Blood Cells into Peripheral Vein, Percutaneous Approach (ICD-10-PCS; 2018-03-20)
PROC: 5A09457 Assistance with Respiratory Ventilation, 24-96 Consecutive Hours, Continuous Positive Airway Pressure (ICD-10-PCS; 2018-03-20)
PROC: 0W993ZX Drainage of Right Pleural Cavity, Percutaneous Approach, Diagnostic (ICD-10-PCS; 2018-03-22)
PROC: BB4BZZZ Ultrasonography of Pleura (ICD-10-PCS; 2018-03-22)
PROC: 0W9B3ZZ Drainage of Left Pleural Cavity, Percutaneous Approach (ICD-10-PCS; 2018-03-24)
PROC: 0W9B30Z Drainage of Left Pleural Cavity with Drainage Device, Percutaneous Approach (ICD-10-PCS; 2018-03-26)
PROC: 0W9930Z Drainage of Right Pleural Cavity with Drainage Device, Percutaneous Approach (ICD-10-PCS; 2018-03-26)
PROC: 3E0L3GC Introduction of Other Therapeutic Substance into Pleural Cavity, Percutaneous Approach (ICD-10-PCS; principal; 2018-04-18)
PROC: 0W9930Z Drainage of Right Pleural Cavity with Drainage Device, Percutaneous Approach (ICD-10-PCS; 2018-04-18)
PROC: 0BBN3ZX Excision of Right Pleura, Percutaneous Approach, Diagnostic (ICD-10-PCS; 2018-04-18)
PROC: 0B9L8ZX Drainage of Left Lung, Via Natural or Artificial Opening Endoscopic, Diagnostic (ICD-10-PCS; 2018-04-23)
PROC: 5A12012 Performance of Cardiac Output, Single, Manual (ICD-10-PCS; 2018-04-23)
PROC: 0BH17EZ Insertion of Endotracheal Airway into Trachea, Via Natural or Artificial Opening (ICD-10-PCS; 2018-04-23)
PROC: 5A1935Z Respiratory Ventilation, Less than 24 Consecutive Hours (ICD-10-PCS; 2018-04-23)
DX: C78.01 Secondary malignant neoplasm of right lung (principal); J18.9 Pneumonia, unspecified organism; J91.0 Malignant pleural effusion; C20 Malignant neoplasm of rectum; K62.5 Hemorrhage of anus and rectum; R78.81 Bacteremia; J96.01 Acute respiratory failure with hypoxia; I50.31 Acute diastolic (congestive) heart failure; I33.0 Acute and subacute infective endocarditis; I21.4 Non-ST elevation (NSTEMI) myocardial infarction; C78.02 Secondary malignant neoplasm of left lung; J98.11 Atelectasis; C78.6 Secondary malignant neoplasm of retroperitoneum and peritoneum; E87.1 Hypo-osmolality and hyponatremia; D62 Acute posthemorrhagic anemia; R64 Cachexia; J95.812 Postprocedural air leak; J93.9 Pneumothorax, unspecified; J93.82 Other air leak; I97.89 Other postprocedural complications and disorders of the circulatory system, not elsewhere classified; E87.5 Hyperkalemia; E86.0 Dehydration; E11.9 Type 2 diabetes mellitus without complications; E86.1 Hypovolemia; Z53.9 Procedure and treatment not carried out, unspecified reason; J98.09 Other diseases of bronchus, not elsewhere classified; I11.0 Hypertensive heart disease with heart failure; B96.89 Other specified bacterial agents as the cause of diseases classified elsewhere; B95.4 Other streptococcus as the cause of diseases classified elsewhere; D50.0 Iron deficiency anemia secondary to blood loss (chronic); I46.9 Cardiac arrest, cause unspecified; R00.1 Bradycardia, unspecified; N40.0 Benign prostatic hyperplasia without lower urinary tract symptoms; E78.5 Hyperlipidemia, unspecified; E78.00 Pure hypercholesterolemia, unspecified; K21.9 Gastro-esophageal reflux disease without esophagitis; K29.60 Other gastritis without bleeding; K76.9 Liver disease, unspecified; G89.29 Other chronic pain; K44.9 Diaphragmatic hernia without obstruction or gangrene; M10.9 Gout, unspecified; H54.62 Unqualified visual loss, left eye, normal vision right eye; Z87.891 Personal history of nicotine dependence